=== PATIENT | female | born 1985 | race Caucasian/White ===

== ENCOUNTER 2023-02-08 15:13 | Outpatient (OUT) | payer OTHER, SELFPAY | END 2023-02-08 15:14 | PROVIDERS: PCP Family Medicine; Visit Provider Obstetrics & Gynecology | DX: E28.2 Polycystic ovarian syndrome (principal) | CPT/HCPCS: 36415; 84144 ==

== ENCOUNTER 2023-03-13 16:29 | Outpatient (OUT) | payer OTHER, SELFPAY ==
[2023-03-15 05:07] LABS: Progesterone 16.8 ng/mL (.)
== END 2023-03-13 16:30 | disposition home or self-care (01) ==
LOC: LAB 16:29
PROVIDERS: PCP Family Medicine; Visit Provider Obstetrics & Gynecology
DX: N97.0 Female infertility associated with anovulation (principal)
CPT/HCPCS: 36415; 84144

== ENCOUNTER 2023-04-11 07:59 | Outpatient (OUT) | payer BC, OTHER, SELFPAY ==
[2023-04-12 04:10] LABS: Progesterone 10.2 ng/mL (.)
== END 2023-04-11 08:00 | disposition home or self-care (01) ==
LOC: LAB 08:02
PROVIDERS: PCP Family Medicine; Visit Provider Obstetrics & Gynecology
DX: N97.9 Female infertility, unspecified (principal)
CPT/HCPCS: 36415; 84144

== ENCOUNTER 2023-06-01 10:12 | Outpatient (OUT) | payer BC, SELFPAY ==
[2023-06-03 02:07] LABS: Progesterone 17.6 ng/mL (.)
== END 2023-06-01 10:13 | disposition home or self-care (01) ==
PROVIDERS: PCP Family Medicine; Visit Provider Obstetrics & Gynecology
DX: N97.0 Female infertility associated with anovulation (principal)
CPT/HCPCS: 36415; 84144

== ENCOUNTER 2023-07-01 06:32 | Outpatient (OUT) | payer BC, SELFPAY ==
[2023-07-02 08:11] LABS: Progesterone 10.3 ng/mL (.)
== END 2023-07-01 06:33 | disposition home or self-care (01) ==
LOC: LAB 06:33
PROVIDERS: PCP Family Medicine; Visit Provider Obstetrics & Gynecology
DX: N97.9 Female infertility, unspecified (principal)
CPT/HCPCS: 36415; 84144

== ENCOUNTER 2023-08-01 16:15 | Outpatient (OUT) | payer BC, SELFPAY ==
[2023-08-03 08:11] LABS: Progesterone 16.2 ng/mL (.)
== END 2023-08-01 16:16 | disposition home or self-care (01) ==
LOC: LAB 16:17
PROVIDERS: PCP Family Medicine; Visit Provider Obstetrics & Gynecology
DX: N97.9 Female infertility, unspecified (principal); N97.0 Female infertility associated with anovulation
CPT/HCPCS: 36415; 84144

== ENCOUNTER 2023-09-02 09:27 | Outpatient (OUT) | payer BC, SELFPAY ==
--- OUTSIDE RECORDS SUMMARY | 2023-09-02 09:31 | XMS_ITS | CCD ---
Author Name Unknown Address [address] [place] [address] Organization [facility] Care Team Providers Care Industrial Relations Worker Name Role Phone No Family Physician Unavailable Unavailable No Family Physician Unavailable Unavailable NO FAMILY DOCTOR, NO FAMILY DOCTOR Primary Care Unavailable YANIRA MARTINO Attending Unavailable Swathi DANIEL Referring Unavailab le PROVIDER, UNKNOWN Attending Unavailable PROVIDER, UNKNOWN Admitting Unavailable WILSON CASTRO Primary Care Unavailable Yolis James Unavailable Joo PACKER, Luisa Unavailable [phone] Lashwan MESSER, Jamie Unavailable Kaushik West, R.D., L.D., Page Unavailable Florin MESSER, Rita Unavailable Rishabh Funes Unavailable [phone] Jada Oliveros Unavailable Joo PACKER Luisa Unavailable Lashawn MESSER, Jamie Unavailable [phone] Kaushik Nancy, R.D., L.D., Page Unavailable Florin MESSER, Rita Unavailable Rishabh Funes Unavailable [phone] ALVARO Hale, DR GOSS Attending Unavailable ALVARO ., DR GOSS Admitting Unavailable DR JADA OLIVEROS Primary Care Unavailable ALVARO ., DR GOSS Consulting Unavailable REQUEST, DR NONE LISTED Primary Care Unavaila cheri JOHN ., DR GOSS Attending Unavailable DAVILLA, DR YANIRA Steele Consulting Unavailable ALVARO ., DR GOSS Admitting Unavailable ALVARO ., DR GOSS Consulting Unavailable ALVARO ., DR GOSS Admitting Unavailable ALVARO ., DR GOSS Attending Unavailable REQUEST, DR NONE LISTED Primary Care Unavaila ble ALVARO ., DR GOSS Consulting Unavailable REQUEST, DR NONE LISTED Primary Care Unavaila ble ALVARO ., DR GOSS Admitting Unavailable ALVARO ., DR GOSS Attending Unavailable ALVARO ., DR GOSS Consulting Unavailable REQUEST, DR NONE LISTED Primary Care Unavaila ble ALVARO ., DR GOSS Admitting Unavailable ALVARO ., DR GOSS Attending Unavailable ALVARO ., DR GOSS Consulting Unavailable REQUEST, DR NONE LISTED Primary Care Unavaila ble ALVARO ., DR GOSS Admitting Unavailable ALVARO ., DR GOSS Attending Unavailable ALVARO ., DR GOSS Consulting Unavailable MISC, DR MCDANIEL Primary Care Unavailable ALVARO ., DR GOSS Attending Unavailable ALVARO ., DR GOSS Admitting Unavailable ALVARO ., DR GOSS Consulting Unavailable ALVARO ., DR GOSS Admitting Unavailable ALVARO ., DR GOSS Attending Unavailable MISC, DR MCDANIEL Primary Care Unavailable ZIEBER, DR YADIRA Carrera Consulting Unavailable ALVARO ., DR GOSS Attending Unavailable ALVARO ., DR GOSS Admitting Unavailable OLIVEROS, DR JADA Corey Primary Care Unavailable ALVARO ., DR GOSS Consulting Unavailable ALVARO ., DR GOSS Consulting Unavailable ALVARO ., DR GOSS Attending Unavailable ALVARO ., DR GOSS Admitting Unavailable OLIVEROS, DR JADA Corey Primary Care Unavailable ALVARO ., DR GOSS Consulting Unavailable ALVARO ., DR GOSS Attending Unavailable ALVARO ., DR GOSS Admitting Unavailable OLIVEROS, DR JADA Corey Primary Care Unavailable ALVARO ., DR GOSS Consulting Unavailable ALVARO ., DR GOSS Attending Unavailable ALVARO ., DR GOSS Admitting Unavailable OLIVEROS, DR JADA Corey Primary Care Unavailable ALVARO ., DR GOSS Attending Unavailable ALVARO ., DR GOSS Admitting Unavailable OLIVEROS, DR JADA Corey Primary Care Unavailable ALVARO ., DR GOSS Consulting Unavailable Allergies Allergy Classification Reported Allergen(s) Allergy Type Date of Onset Reaction(s) Facility (3 sources) SEASONAL IC; Translations: [SEASONAL IC] Propensity to adverse reactions to drug (disorder) 09-23-201 9 [facility] Medications Current Medications Medication Drug Class(es) Dates Sig (Normalized) Sig (Original) cholecalciferol 0.05 mg oral tablet (2 sources) Vitamin D Start: 10-29-2018 take 1 tablet by mouth once daily Cholecalciferol (VITAMIN D3) 2000 units TABS Take 1 Tablet by mouth daily. 30 Tablet 11 10/29/2018 Active condoms (2 sources) Start: 06-18-2019 condoms use during sex to prevent and/or sexually transmitted diseases 1 Package 11 06/18/2019 Active docosanol 100 mg/ml topical cream (2 sources) Start: 01-09-2019 Docosanol (ABREVA) 10 % CREA Apply to affected area 5 times daily for 7 days as needed 1 Tube 1 01/09/2019 Active docusate sodium 100 mg oral capsule (2 sources) Start: 05-30-2019 take 1 capsule by mouth twice daily docusate sodium (COLACE) 100 MG capsule Take 1 Capsule by mouth 2 times daily. 60 Capsule 3 05/30/2019 Active humidifier (2 sources) Start: 09-21-2018 humidifier Dispense humidifier covered by insurance to use as directed 1 Each 0 09/21/2018 Active hydrocortisone 10 mg/ml / neomycin 3.5 mg/ml / polymyxin b 95770 unt/ml otic solution (1 source) Aminoglycoside Antibacterial, Polymyxin-class Antibacterial, Corticosteroid Start: 11-08-2022 Neomycin-Polymyxin- HC 1 % 4 drops into affected ear Otic Three times a day for 7 days Oct, Active ketoconazole 20 mg/ml medicated shampoo (3 sources) Azole Antifungal Start: 04-28-2019 ketoconazole (NIZORAL) 2 % shampoo Ketoconazole 2 % as directed Externally every other day for 28 days Active loratadine 10 mg oral tablet (2 sources) Start: 01-07-2019 take 1 tablet by mouth once daily loratadine (CLARITIN) 10 MG tablet Take 1 Tablet by mouth daily. 30 Tablet 3 01/07/2019 Active medroxyPROGESTERone acetate 10 mg oral tablet (2 sources) Progestin Start: 07-08-2019 take 1 tablet by mouth once daily, then take 1-10 tablets by mouth once daily medroxyPROGESTERone (PROVERA) 10 MG tablet Take 1 Tablet by mouth daily. Take daily for 10 consecutive days each month. (For example, Day 1-10 of each month). 30 Tablet 3 07/08/2019 Active metFORMIN hydrochloride 500 mg oral tablet (1 source) Biguanide take 1 tablet by mouth every twenty-fou r hours metFORMIN HCl 500 MG 1 tablet with a meal Orally Once a day Active Multivitamin preparation (1 source) Multivitamin Act jonathon ofloxacin 3 mg/ml otic solution (2 sources) Quinolone Antimicrobial Start: 06-12-2022 Ofloxacin 0.3 % 10 drops into affected ear Otic Once a day for 7 day(s) May, Active Start: 06-12-2022 Ofloxacin 0.3 % 10 drops into affected ear Otic Once a day for 7 day(s) May, Not-Taking omeprazole 40 mg delayed release oral capsule (2 sources) Proton Pump Inhibitor Start: 05-30-2019 take 1 capsule by mouth once daily omeprazole (PRILOSEC) 40 MG capsule Take 1 Capsule by mouth daily. 90 Capsule 2 05/30/2019 Active ondansetron 4 mg disintegrating oral tablet (2 sources) Serotonin-3 Receptor Antagonist Start: 05-30-2019 take 1 tablet by mouth every eight hours as needed for nausea ondansetron (ZOFRAN ODT) 4 MG disintegrating tablet Take 1 Tablet by mouth every 8 hours as needed for Nausea. Place 1 tablet under tongue as needed for nausea. 30 Tablet 1 05/30/2019 Active triamcinolone acetonide 1 mg/ml topical cream (1 source) Corticosteroid Triamcinolone Acetonide 0.1 % 1 application Externally Two times a Week Active ursodiol 300 mg oral capsule (2 sources) Bile Acid Start: 05-30-2019 take 1 capsule by mouth twice daily ursodiol (ACTIGALL) 300 MG capsule Take 1 Capsule by mouth 2 times daily. 120 Capsule 2 05/30/2019 Active varenicline (2 sources) Partial Cholinergic Nicotinic Agonist Start: 12-27-2019 varenicline (CHANTIX STARTING MONTH ) 0.5 MG X 11 & 1 MG X 42 tablet Take 0.5mg tablet daily for 3 days, then increase to 0.5mg tablet twice daily for 4 days, then increase to one 1mg tablet twice daily 53 Each 3 12/27/2019 Active vitamin b12 0.1 mg oral tablet (3 sources) Vitamin B12 Start: 10-29-2018 take 1 tablet by mouth once daily Cyanocobalamin (B-12) 100 MCG TABS Take 100 mcg by mouth daily. 30 Tablet 11 10/29/2018 Active Vitamin B12 Acti ve Problems Active Problems Problem Classification Problem Date Documented Da te Episodic/Chronic Developmental disorders (2 sources) Developmental academic disorder; Translations: [Developmental disorder of scholastic skills, unspecified] Onset: 05-31-2014 05-31-2014 Chronic Disorders of lipid metabolism (2 sources) Mixed hyperlipidemia; Translations: [Mixed hyperlipidemia] Onset: 10-29-2018 12-14-2018 Chronic Female infertility (8 sources) Female infertility; Translations: [Female infertility, unspecified] Onset: 09-22-2018 09-22-2018 Chronic Headache; including migraine (1 source) Migraine, unspecified, not intractable, without status migrainosus Onset: 11-07-2018 Chronic Headache; including migraine (2 sources) Headache; Translations: [Headache] Onset: 11-07-2018 Episodic Menstrual disorders (12 sources) Amenorrhea; Translations: [Amenorrhea, unspecified] Onset: 09-22-2018 09-22-2018 Chronic Miscellaneous mental health disorders (2 sources) Eating disorder; Translations: [Eating disorder, unspecified] Onset: 09-22-2018 09-22-2018 Chronic Nausea and vomiting (3 sources) Nausea with vomiting, unspecified; Translations: [Nausea with vomiting, unspecified] Onset: 11-07-2018 Episodic Nutritional deficiencies (2 sources) Vitamin D deficiency; Translations: [Vitamin D deficiency, unspecified] Onset: 10-29-2018 10-29-2018 Chronic Other ear and sense organ disorders (2 sources) Chronic eczema of external auditory canal; Translations: [Other otitis externa, bilateral] Chronic Other ear and sense organ disorders (1 source) Other otitis externa, bilateral Chronic Other ear and sense organ disorders (1 source) Unspecified acute noninfective otitis externa, left ear Episodic Other endocrine disorders (2 sources) Polycystic ovary syndrome; Translations: [Polycystic ovarian syndrome] Onset: 11-07-2013 Chronic Other endocrine disorders (2 sources) Polycystic ovaries; Translations: [Polycystic ovarian syndrome] Chronic Other endocrine disorders (4 sources) Polycystic ovarian syndrome; Translations: [POLYCYSTIC OVARIAN SYNDROME] Onset: 01-09-2023 Chronic Other endocrine disorders (2 sources) Disorder of endocrine system; Translations: [Endocrine disorder, unspecified] Episodic Other female genital disorders (2 sources) Abnormal uterine bleeding; Translations: [Abnormal uterine and vaginal bleeding, unspecified] Chronic Other female genital disorders (4 sources) Abnormal uterine and vaginal bleeding, unspecified; Translations: [ABNORMAL UTERINE VAGINAL BLEED UNS] Onset: 02-24-2022 Chronic Other female genital disorders (2 sources) Noninflammatory disorders of the ovary, fallopian tube and broad ligament; Translations: [Noninflammatory disorder of ovary, fallopian tube and broad ligament, unspecified] Episodic Other gastrointestinal disorders (2 sources) History of bypass of stomach; Translations: [Bariatric surgery status] Episodic Other inflammatory condition of skin (2 sources) Itching of skin; Translations: [Pruritus, unspecified] Episodic Other inflammatory condition of skin (1 source) Seborrhea capitis Episodic Other nervous system disorders (2 sources) Bilateral carpal tunnel syndrome; Translations: [Carpal tunnel syndrome, bilateral upper limbs] Onset: 09-22-2018 09-22-2018 Chronic Other nutritional; endocrine; and metabolic disorders (2 sources) Morbid obesity; Translations: [Morbid (severe) obesity with alveolar hypoventilation] Onset: 05-17-2019 05-17-2019 Chronic Other nutritional; endocrine; and metabolic disorders (2 sources) Localized adiposity; Translations: [Localized adiposity] Chronic Other and delivery including normal (4 sources) Encounter for test, result positive; Translations: [ENC TEST RESULT POSITIVE] Onset: 01-17-2023 Episodic Other screening for suspected conditions (not mental disorders or infectious disease) (5 sources) Encounter for screening for malignant neoplasm of cervix; Translations: [ENC SCREENING MALIG NEOPLASM CERV] Onset: 11-21-2022 Episodic Other upper respiratory disease (2 sources) Chronic rhinitis; Translations: [Chronic rhinitis] Onset: 09-22-2018 09-22-2018 Chronic Residual codes; unclassified (2 sources) Obstructive sleep apnea of adult; Translations: [Obstructive sleep apnea (adult) (pediatric)] Onset: 12-14-2018 05-30-2019 Chronic Unclassified (1 source) Unknown / UNK(Unknown) Onset: 09-21-2017 Unclassified (3 sources) Diarrhea, unspecified; Translations: [Diarrhea, unspecified] Onset: 11-07-2018 Past or Other Problems Problem Classification Problem Date Documented Da te Episodic/Chronic Contraceptive and procreative management (4 sources) Encounter for procreative management, unspecified; Translations: [ENC PROCREATIVE MANAGEMENT UNS] Onset: 09-23-2022 Episodic Diabetes mellitus without complication (2 sources) Prediabetes; Translations: [Prediabetes] Onset: 10-29-2018 10-29-2018 Episodic Headache, including migraine (1 source) Headache, including migraine Onset: 09-21-2017 Nutritional deficiencies (2 sources) Serum vitamin B12 low; Translations: [Deficiency of other specified B group vitamins] Onset: 10-29-2018 10-29-2018 Episodic Other endocrine disorders (4 sources) Endocrine disorder, unspecified; Translations: [ENDOCRINE DISORDER UNSPECIFIED] Onset: 02-25-2022 Episodic Other female genital disorders (4 sources) Noninflammatory disorder of ovary, fallopian tube and broad ligament, unspecified; Translations: [OTH NONINFL D/O OVARY TUBE AND BRD LIG] Onset: 07-12-2022 Episodic Other gastrointestinal disorders (2 sources) History of sleeve gastrectomy; Translations: [Bariatric surgery status] Onset: 06-11-2019 06-11-2019 Episodic Other inflammatory condition of skin (2 sources) Seborrheic dermatitis of scalp; Translations: [Seborrheic dermatitis, unspecified] Onset: 09-22-2018 09-22-2018 Episodic Other nutritional; endocrine; and metabolic disorders (4 sources) Body mass index 40+ - severely obese; Translations: [Morbid (severe) obesity due to excess calories] Onset: 09-22-2018 Resolved: 07-08-2019 07-08-2019 Chronic Other skin disorders (2 sources) Disorder of skin and/or subcutaneous tissue; Translations: [Excessive and redundant skin and subcutaneous tissue] Onset: 04-17-2020 04-17-2020 Episodic Results Test Name Value Interpretation Reference Range Facility PREG QUANT HCGon 01-17-2023 HCG QUANT <1 [facility] Comment on above: Performed By: #### P REGQNT #### [facility] [address] [address] [address] Meghan Vital HCG RANGE SEE BELOW [facility] Comment on above: Result Comment: 5-50 0.2-1 WEEK 50-500 1-2 WEEKS 100-5,000 2-3 WEEKS 500-10,000 3-4 WEEKS 1,000-50,000 4-5 WEEKS 10,000-100,000 5-6 WEEKS 15,000-200,000 6-8 WEEKS 10,000-100,000 2-3 MONTHS Performed By: #### P REGQNT #### [facility] [address] [place] [address] Dr. Meghan Vital PROGESTERONEon 01-10-2023 Progesterone 8.9 ng/mL [facility] Comment on above: Result Comment: Foll icular phase 0.1 - 0.9 Luteal phase 1.8 - 23.9 Ovulation phase 0.1 - 12.0 First trimester 11.0 - 44.3 Second trimester 25.4 - 83.3 Third trimester 58.7 - 214.0 Postmenopausal 0.0 - 0.1 Performed By: #### H CGSUB #### [facility] [address] [place] [address] Dr. Meghan Vital PAP ACOG PANEL 2: 30 to 65on 11-30-2022 . . Normal [facility] Comment on above: Result Comment: Perf ormed at: WB Performed By: #### [id number] #### [facility] [address] [place] [address] Dr. Meghan Vital Age Gdln ACOG Testing - [facility] Comment on above: Performed By: #### [id number] #### [facility] [address] [place] [address] Dr. Meghan Vital DIAGNOSIS: Comment [facility] Comment on above: Result Comment: NEGA TIVE FOR INTRAEPITHELIAL LESION OR MALIGNANCY. Performed at: WB Performed By: #### [id number] #### [facility] [address] [place] [address] Dr. Meghan Vital HPV Aptima Positive Abnormal Negative [facility] Comment on above: Result Comment: This nucleic acid amplification test detects fourteen high-risk HPV types (16,18,31,33,35,39,45,51,52,56,58,59,66,68) without differentiation. Performed at: =G Performed By: #### [id number] #### [facility] [address] [place] [address] Dr. Meghan Vital HPV Genotype 16 Negative Normal Negative [facility] Comment on above: Performed By: #### [id number] #### [facility] [address] [place] [address] Dr. Meghan Vital HPV Genotype 18,45 Negative Normal Negative [facility] Comment on above: Performed By: #### [id number] #### [facility] [address] [address] [address] Meghan Vital HPV Genotype Reflex Comment [facility] Comment on above: Result Comment: Aiyana iqbal, see HPV Genotype results. Performed at: WB Performed By: #### [id number] #### [facility] [address] [place] [address] Dr. Meghan Vital Methodology: Comment [facility] Comment on above: Result Comment: This liquid based ThinPrep(R) pap test was screened with the use of an image guided system. Performed at: WB Performed By: #### [id number] #### [facility] [address] [place] [address] Dr. Meghan Vital Note: Comment [facility] Comment on above: Result Comment: The Pap smear is a screening test designed to aid in the detection of premalignant and malignant conditions of the uterine cervix. It is not a diagnostic procedure and should not be used as the sole means of detecting cervical cancer. Both false-positive and false-negative reports do occur. . Performed at: WB Performed By: #### [id number] #### [facility] [address] [place] [address] Dr. Meghan Vital Performed by: Comment [facility] Comment on above: Result Comment: Rahul Kincaid, Warehouse Record Clerk (ASCP) Performed at: WB Performed By: #### [id number] #### [facility] [address] [place] [address] Dr. Meghan Vital Specimen adequacy: Comment [facility] Comment on above: Result Comment: Sati sfactory for evaluation. Endocervical and/or squamous metaplastic cells (endocervical component) are present. Performed at: WB Performed By: #### [id number] #### [facility] [address] [address] [address] Mgehan Vital ANTI-MULLERIAN HORMONEon Anti-Mullerian Hormone (AMH) 3.03 ng/mL [facility] Comment on above: Result Comment: For assays employing antibodies, the possibility exists for interference by heterophile antibodies in the samples.1 1.Bailey Dickson Interferences in Immunoassays - still a threat. Clin. Chem. 2000; 46: 3455-9838. This test was developed and its performance characteristics determined by [employer]. It has not been cleared or approved by the Food and Drug Administration. Reference Range: Females 36 - 40y: 0.42 - 8.34 Median 1.69 AMH concentrations of >= 1.06 ng/mL is correlated with a better response to ovarian stimulation, produced more retrievable oocytes and higher odds of live according to Shaniceer et al. Fertility and Sterility. 2010: 94:6104-8684. The current AMH test method correlates with the study method with a slope of 0.94. Females at risk of ovarian hyperstimulation syndrome or polycystic ovarian syndrome (PCOS) may exhibit elevated serum AMH concentrations. AMH levels from PCOS patients may be 2 to 5 fold higher than age-appropriate reference interval values. Granulosa cell tumors of the ovary may secrete AMH along with other tumor markers. Elevated AMH is not specific for malignancy, and the assay should not be used exclusively to diagnose or exclude an AMH-secreting ovarian tumor. Performed By: #### H CGSUB #### [facility] [address] [place] [address] Dr. Meghan Vital CBC AUTO DIFFon 11-21-2022 BASO # 0.1 103/ul Normal 0.0-0.1 [facility] Comment on above: Performed By: #### H CGSUB #### [facility] [address] [place] [address] Dr. Meghan Vital Basophils/100 WBC (Bld) 0.8 % Normal 0.2-2.0 [facility] Comment on above: Performed By: #### H CGSUB #### [facility] [address] [place] [address] Dr. Meghan Vital EO # 0.2 103/ul Normal 0.0-0.7 [facility] Comment on above: Performed By: #### H CGSUB #### [facility] [address] [place] [address] Dr. Meghan Vital Eosinophils/100 WBC (Bld) 2.3 % Normal 0.9-7.0 [facility] Comment on above: Performed By: #### H CGSUB #### [facility] [address] [place] [address] Dr. Meghan Vital Erythrocyte distribution width (RBC) [Ratio] 13.3 % Normal 11.0-15.0 [facility] Comment on above: Performed By: #### H CGSUB #### [facility] [address] [place] [address] Dr. Meghan Vital Hematocrit (Bld) [Volume fraction] 42.4 % Normal 36.0-48.0 [facility] Comment on above: Performed By: #### H CGSUB #### [facility] [address] [place] [address] Dr. Meghan Vital Hemoglobin (Bld) [Mass/Vol] 13.6 g/dL Normal 12.0-16.0 [facility] Comment on above: Performed By: #### H CGSUB #### [facility] [address] [place] [address] Dr. Meghan Vital IG # 0.01 10e3/ul Normal 0.00-0.03 [facility] Comment on above: Performed By: #### H CGSUB #### [facility] [address] [place] [address] Dr. Meghan Vital IG % 0.1 % Normal 0.0-0.5 [facility] Comment on above: Performed By: #### H CGSUB #### [facility] [address] [place] [address] Dr. Meghan Vital LYMPH # 3.9 103/ul Critically high 1.2-3.8 [facility] Comment on above: Performed By: #### H CGSUB #### [facility] [address] [place] [address] Dr. Meghan Vital Lymphocytes/100 WBC (Bld) 42.7 % Normal 20.5-60.0 [facility] Comment on above: Performed By: #### H CGSUB #### [facility] [address] [place] [address] Dr. Meghan Vital MANUAL DIFF REQ NO Normal [facility] Comment on above: Performed By: #### H CGSUB #### [facility] [address] [place] [address] Dr. Meghan Vital MCH (RBC) [Entitic mass] 27.4 pg Normal 26.7-34.0 [facility] Comment on above: Performed By: #### H CGSUB #### [facility] [address] [place] [address] Dr. Meghan Vital MCHC (RBC) [Mass/Vol] 32.1 g/dL Normal 29.9-35.2 [facility] Comment on above: Performed By: #### H CGSUB #### [facility] [address] [place] [address] Dr. Meghan Vital MCV (RBC) [Entitic vol] 85.3 fL Normal 81.0-99.0 [facility] Comment on above: Performed By: #### H CGSUB #### [facility] [address] [place] [address] Dr. Meghan Vital MONO # 0.6 103/ul Normal 0.3-0.8 [facility] Comment on above: Performed By: #### H CGSUB #### [facility] [address] [place] [address] Dr. Meghan Vital Monocytes/100 WBC (Bld) 6.1 % Normal 1.7-12.0 [facility] Comment on above: Performed By: #### H CGSUB #### [facility] [address] [place] [address] Dr. Meghan Vital NEUT # 4.3 103/ul Normal 1.4-6.5 [facility] Comment on above: Performed By: #### H CGSUB #### [facility] [address] [address] [address] Meghan Vital Neutrophils/100 WBC (Bld) 48.0 % Normal 43.0-75.0 [facility] Comment on above: Performed By: #### H CGSUB #### [facility] [address] [address] [address] Meghan Vital Platelet mean volume (Bld) [Entitic vol] 11.5 fL Normal 9.5-13.5 [facility] Comment on above: Performed By: #### H CGSUB #### [facility] [address] [address] [address] Meghan Vital PLT 251 103/ul Normal 150-450 [facility] Comment on above: Performed By: #### H CGSUB #### [facility] [address] [place] [address] Dr. Meghan Vital RBC 4.97 106/ul Normal 4.20-5.40 [facility] Comment on above: Performed By: #### H CGSUB #### [facility] [address] [address] [address] Meghan Vitla WBC 9.0 103/ul Normal 4.0-11.0 [facility] [facility] Comment on above: Performed By: #### H CGSUB #### [facility] [address] [place] [address] Dr. Meghan Vital FREE T4on 11-21-2022 Free T4 [Mass/Vol] 1.03 ng/dL Normal 0.76-1.46 [facility] Comment on above: Performed By: #### F T4 #### [facility] [address] [place] [address] Dr. Meghan Vital GLYCOHEMOGLOBIN A1Con 2022 ADA RECOMMENDATION SEE BELOW Normal [facility] Comment on above: Result Comment: ADA RECOMMENDED LIMIT 4.0 - 6.0 ADA THERAPEUTIC TARGET < 7.0 ACTION SUGGESTED > 7.0 Performed By: #### H CGSUB #### [facility] [address] [place] [address] Dr. Meghan Vital Glucose [Mass/Vol] 97 mg/dL Normal [facility] Comment on above: Performed By: #### H CGSUB #### [facility] [address] [place] [address] Dr. Meghan Vital HbA1c (Bld) [Mass fraction] 5.0 % Normal 4.5-6.2 [facility] Comment on above: Performed By: #### H CGSUB #### [facility] [address] [place] [address] Dr. Meghan Vital TSHon 11-21-2022 TSH 1.636 uIU/mL Normal 0.358-3.74 0 [facility] Comment on above: Performed By: #### H CGSUB #### [facility] [address] [place] [address] Dr. Meghan Vital PROGESTERONEon 10-12-2022 Progesterone 6.8 ng/mL Normal [facility] Comment on above: Result Comment: Foll icular phase 0.1 - 0.9 Luteal phase 1.8 - 23.9 Ovulation phase 0.1 - 12.0 First trimester 11.0 - 44.3 Second trimester 25.4 - 83.3 Third trimester 58.7 - 214.0 Postmenopausal 0.0 - 0.1 Performed By: #### H CGSUB #### [facility] [address] [place] [address] Dr. Meghan Vital CBC AUTO DIFFon 09-23-2022 BASO # 0.1 103/ul Normal 0.0-0.1 [facility] Comment on above: Performed By: #### C BC #### [facility] [address] [place] [address] Dr. Meghan Vital Basophils/100 WBC (Bld) 1.2 % Normal 0.2-2.0 [facility] Comment on above: Performed By: #### C BC #### [facility] [address] [place] [address] Dr. Meghan Vital EO # 0.2 103/ul Normal 0.0-0.7 [facility] Comment on above: Performed By: #### C BC #### [facility] [address] [place] [address] Dr. Meghan Vital Eosinophils/100 WBC (Bld) 2.4 % Normal 0.9-7.0 [facility] Comment on above: Performed By: #### C BC #### [facility] [address] [place] [address] Dr. Meghan Vital Erythrocyte distribution width (RBC) [Ratio] 13.1 % Normal 11.0-15.0 [facility] Comment on above: Performed By: #### C BC #### [facility] [address] [place] [address] Dr. Meghan Vital Hematocrit (Bld) [Volume fraction] 38.1 % Normal 36.0-48.0 [facility] Comment on above: Performed By: #### C BC #### [facility] [address] [place] [address] Dr. Meghan Vital Hemoglobin (Bld) [Mass/Vol] 13.4 g/dL Normal 12.0-16.0 [facility] Comment on above: Performed By: #### C BC #### [facility] [address] [place] [address] Dr. Meghan Vital IG # 0.01 10e3/ul Normal 0.00-0.03 [facility] Comment on above: Performed By: #### C BC #### [facility] [address] [place] [address] Dr. Meghan Vital IG % 0.1 % Normal 0.0-0.5 [facility] Comment on above: Performed By: #### C BC #### [facility] [address] [place] [address] Dr. Meghan Vital LYMPH # 3.4 103/ul Normal 1.2-3.8 [facility] Comment on above: Performed By: #### C BC #### [facility] [address] [place] [address] Dr. Meghan Vital Lymphocytes/100 WBC (Bld) 45.2 % Normal 20.5-60.0 [facility] Comment on above: Performed By: #### C BC #### [facility] [address] [place] [address] Dr. Meghan Vital MANUAL DIFF REQ NO Normal [facility] Comment on above: Performed By: #### C BC #### [facility] [address] [place] [address] Dr. Meghan Vital MCH (RBC) [Entitic mass] 27.8 pg Normal 26.7-34.0 [facility] Comment on above: Performed By: #### C BC #### [facility] [address] [place] [address] Dr. Meghan Vital MCHC (RBC) [Mass/Vol] 35.2 g/dL Normal 29.9-35.2 [facility] Comment on above: Performed By: #### C BC #### [facility] [address] [place] [address] Dr. Meghan Vital MCV (RBC) [Entitic vol] 79.0 fL Critically low 81.0-99.0 [facility] Comment on above: Performed By: #### C BC #### [facility] [address] [place] [address] Dr. Meghan Vital MONO # 0.4 103/ul Normal 0.3-0.8 [facility] Comment on above: Performed By: #### C BC #### [facility] [address] [place] [address] Dr. Meghan Vital Monocytes/100 WBC (Bld) 5.3 % Normal 1.7-12.0 [facility] Comment on above: Performed By: #### C BC #### [facility] [address] [place] [address] Dr. Meghan Vital NEUT # 3.4 103/ul Normal 1.4-6.5 [facility] Comment on above: Performed By: #### C BC #### [facility] [address] [place] [address] Dr. Meghan Vital Neutrophils/100 WBC (Bld) 45.8 % Normal 43.0-75.0 [facility] Comment on above: Performed By: #### C BC #### [facility] [address] [place] [address] Dr. Meghan Vital Platelet mean volume (Bld) [Entitic vol] 11.4 fL Normal 9.5-13.5 [facility] Comment on above: Performed By: #### C BC #### [facility] [address] [place] [address] Dr. Meghan Vital PLT 280 103/ul Normal 150-450 [facility] Comment on above: Performed By: #### C BC #### [facility] [address] [place] [address] Dr. Meghan Vital RBC 4.82 106/ul Normal 4.20-5.40 [facility] Comment on above: Performed By: #### C BC #### [facility] [address] [place] [address] Dr. Meghan Vital WBC 7.5 103/ul Normal 4.0-11.0 [facility] Comment on above: Performed By: #### C BC #### [facility] [address] [place] [address] Dr. Meghan Vital FREE T4on 09-23-2022 Free T4 [Mass/Vol] 1.17 ng/dL Normal 0.76-1.46 [facility] Comment on above: Performed By: #### H CGSUB #### [facility] [address] [place] [address] Dr. Meghan Vital GLYCOHEMOGLOBIN A1Con 2022 ADA RECOMMENDATION SEE BELOW Normal [facility] Comment on above: Result Comment: ADA RECOMMENDED LIMIT 4.0 - 6.0 ADA THERAPEUTIC TARGET < 7.0 ACTION SUGGESTED > 7.0 Performed By: #### A 1C #### [facility] [address] [place] [address] Dr. Meghan Vital Glucose [Mass/Vol] 100 mg/dL Normal [facility] Comment on above: Performed By: #### A 1C #### [facility] [address] [place] [address] Dr. Meghan Vital HbA1c (Bld) [Mass fraction] 5.1 % Normal 4.5-6.2 [facility] Comment on above: Performed By: #### A 1C #### [facility] [address] [place] [address] Dr. Meghan Vital TSHon 09-23-2022 TSH 1.235 uIU/mL Normal 0.358-3.74 0 [facility] Comment on above: Performed By: #### T SH #### [facility] [address] [place] [address] Dr. Meghan Vital PREG QUANT HCGon 07-12-2022 HCG QUANT 1 mIU/mL Normal [facility] Comment on above: Performed By: #### P REGQNT #### [facility] [address] [place] [address] Dr. Meghan Vital HCG RANGE SEE BELOW Normal [facility] Comment on above: Result Comment: 5-50 0.2-1 WEEK 50-500 1-2 WEEKS 100-5,000 2-3 WEEKS 500-10,000 3-4 WEEKS 1,000-50,000 4-5 WEEKS 10,000-100,000 5-6 WEEKS 15,000-200,000 6-8 WEEKS 10,000-100,000 2-3 MONTHS Performed By: #### P REGQNT #### [facility] [address] [place] [address] Dr. Meghan Vital XR HYSTEROSALPINGOGRAMon XR HYSTEROSALPINGOGRAM EXAMINATION: XR HYSTEROSALPINGOGRAM HISTORY: Noninflammatory disorder of the female genital organs COMPARISON: No relevant comparison available. TECHNIQUE: Informed consent was obtained. A sterile vaginal speculum was introduced and, following cleansing of the cervix, a balloon-tipped catheter was inserted into the endometrial cavity. The procedure was then completed in the usual manner with water-soluble contrast. Standard level fluoroscopic mode of operation utilized. FINDINGS: FALLOPIAN TUBES: Patent fallopian tubes bilaterally. ENDOMETRIAL CAVITY: No scarring, filling defects, or dilatation. OTHER: Negative. IMPRESSION: 1. Normal hysterosalpingogram. Electronically authenticated by: YADIRA BAKER Date: 2022-07-12 12:12 Normal [facility] PROGESTERONEon 06-30-2022 Progesterone 20.9 ng/mL Normal [facility] Comment on above: Result Comment: Foll icular phase 0.1 - 0.9 Luteal phase 1.8 - 23.9 Ovulation phase 0.1 - 12.0 First trimester 11.0 - 44.3 Second trimester 25.4 - 83.3 Third trimester 58.7 - 214.0 Postmenopausal 0.0 - 0.1 Performed By: #### P PHIL #### [facility] [address] [place] [address] Dr. Meghan Vital HCG-BETA SUBUNIT QUANTon hCG,Beta Subunit,Qnt,Serum <1 Normal [facility] Comment on above: Result Comment: Fema le (Non-) 0 - 5 (Postmenopausal) 0 - 8 . Female () Weeks of Gestation 3 6 - 71 4 10 - 750 5 217 - 7138 6 158 - 20475 7 [phone] 8 42545 -[phone] 9 76295 -105649 10 58271 -[phone] 12 09872 -[phone] 14 00909 - 02335 15 12034 - 35669 16 3488 - 97937 17 8175 - 15976 18 8099 - 22244 Jeremy ECLIA methodology Performed By: #### H CGSUB #### [facility] [address] [place] [address] Dr. Meghan Vital HCG-BETA SUBUNIT QUANTon hCG,Beta Subunit,Qnt,Serum <1 Normal [facility] Comment on above: Result Comment: Fema le (Non-) 0 - 5 (Postmenopausal) 0 - 8 . Female () Weeks of Gestation 3 6 - 71 4 10 - 750 5 217 - 7138 6 158 - 30948 7 3697 [phone] 8 27443 [phone] 9 06553 -[phone] 10 57781 -887409 12 42627 -194260 14 45548 - 82914 15 07903 - 34971 16 6540 - 85289 17 8175 - 92460 18 8099 - 44280 Jeremy ECLIA methodology Performed By: #### H CGSUB #### [facility] [address] [place] [address] Dr. Meghan Vital PROGESTERONEon 02-26-2022 Progesterone <0.1 Normal [facility] Comment on above: Result Comment: Foll icular phase 0.1 - 0.9 Luteal phase 1.8 - 23.9 Ovulation phase 0.1 - 12.0 First trimester 11.0 - 44.3 Second trimester 25.4 - 83.3 Third trimester 58.7 - 214.0 Postmenopausal 0.0 - 0.1 Performed By: #### P PHIL #### [facility] [address] [place] [address] Dr. Meghan Vital US PELVIS AND TRANSVAGon US PELVIS AND TRANSVAG EXAMINATION: US P VANESSA AND TRANSVAG HISTORY: Abnormal uterine bleeding COMPARISON: 07/28/2020 FINDINGS: Transvaginal images The uterus is normal in size, contour and myometrial echotexture measuring 6.7 x 3.9 x 2.8 cm. Anteflexed. The endometrium measures 5.3 mm. Suspected partial septate uterus at the fundus The right ovary is normal in appearance measuring 2.9 x 2.7 x 1.9 cm. Normal color and Doppler flow The left ovary is normal in appearance measuring 3.5 x 2.0 x 2.6 cm. Normal color Doppler flow. IMPRESSION: Suspected partial septate uterus No acute abnormality Electronically authenticated by: YANIRA MICHAEL Date: 2022-02-24 16:57 Normal [facility] Ambulatory Clinical Summaryo n 12-22-2020 Ambulatory Clinical Summary {[id number]}CD:[id number] Normal [facility] Family Medicine Office/Clini c Noteon 12-22-2020 Family Medicine Office/Clinic Note Chief Complaint EST patient presents for stye in eye HPI Staff Fartun is a 35 year old female who presents for stye in eye. Patient denies wearing ocntacts or glasses Onset- last night Location- RT eye Pain- no Swelling- no Itching- slight Redness- yes Burning- no Drainage- no Vision changes- no Blurred vision- no Double vision- no Treatments- none History of Present Illness I have reviewed and verified the staff HPI to be accurate for this encounter. Patient presents in office for concern of style to right lower eyelid. Symptoms x 1 day. Area is tender and red. Denies drainage. Denies vision changes, Denies discharge. States she gets this a couple times per year. Denies nasal symptoms, cough, sore throat Review of Systems PHQ Score Initial Depression Screen Score: 0 Erythema:yes to lower right eyelid Discharge:no Irritation:no +tenderness to eyelid Light sensitivity:no Vision changes:no Known eye injury/chemical exposure:no Contact lens use:no Physical Exam Vitals & Measurements T: 36.7 ?C (Oral) HR: 71(Peripheral) BP: 108/66 SpO2: 98% HT: 163 cm HT: 163.0 cm WT: 66.2 kg WT: 66.2 kg BMI: 24.92 General: Well developed, well nourished, in no acute distress Eyes: PERRLA. No conjunctival erythema to either eye. No drainage. Stye presents to right lower inner eye lid, moderate edema and erythema. No drainage, area is tender Nose: No deformity, discharge, inflammation, or lesions Mouth: Mucous membranes moist. Normal oropharynx, and posterior pharynx without lesions or exudates. Tongue normal Mental Status: Alert and oriented x3. Normal mood and affect Assessment/Plan 1. BMI 24.0-24.9, adult (Z68.24: Body mass index [BMI] 24.0-24.9, adult) Ordered: Body Mass Index (BMI) documented 3008F Office Visit Level 2 Est 08243 2. Tobacco use (Z72.0: Tobacco use) We strongly recommend to quit tobacco use. Cigarette smoking harms nearly every organ of the body, causes many diseases, and reduces the health of smokers in general. Quitting smoking lowers your risk for smoking-related diseases and can add years to your life. We encourage you to visit www.smokefree.gov access to helpful resources including free telephone support. If you decide on prescription treatment to help you quit, we would be happy to provide these. Ordered: Current tobacco smoker 1034F Office Visit Level 2 Est 83479 3. Hordeolum externum right lower eyelid (H00.012: Hordeolum externum right lower eyelid) Will treat with bacitracin ointment. May use warm compresses 3-4 x day. FU with PCP if not gradually improving over next 7 days, sooner if significantly spreading erythema, edema, warmth, fever. Patient verbalized understanding of tx plan Ordered: Office Visit Level 2 Est 37391 Orders: erythromycin ophthalmic, 0.5 in, OPTH, QID for 7 day(s), 3.5 gm, Refill(s) 0, to right eye, [facility], 163, cm, 12/22/20 15:32:00 EDT, Height/Length Dosing, 66.2, kg, 12/22/20 15:32:00 EDT, Weight Dosing Follow-up No qualifying data available Patient Education Health Risks of Smoking Problem List/Past Medical History Ongoing No chronic problems Historical No qualifying data Procedure/Surgical History Knee injury, Ovarian ablation, Tonsillectomy. Medications erythromycin ophthalmic 0.5% ointment, 0.5 in, OPTH, QID Ventolin HFA 90 mcg/inh Aerosol, 2 puff(s), Inhalation, q6hr, PRN, Not taking Allergies No Known Allergies Social History Tobacco - Denies Tobacco Use, 12/22/2020 5-9 cigarettes (between 1/4 to 1/2 pack)/day in last 30 days Tobacco Use:. Never Smokeless Tobacco Use:. Cigarettes, 12/22/2020 5-9 cigarettes (between 1/4 to 1/2 pack)/day in last 30 days Tobacco Use:. Cigarettes, Yes, 11/17/2020 Family History Family history is negative Normal [facility] Comment on above: Result Comment: Elec tronically Signed By: Ara TURNER CNP\.br\Date and Time Signed: 12/22/20 16:05 EDT Patient Educationon 12-23-19 21 Patient Education Pulmonary Medicine Health Risks of Smoking Smoking cigarettes is very bad for your health. Tobacco smoke has over 200 known poisons in it. It contains the poisonous gases nitrogen oxide and carbon monoxide. There are over 60 chemicals in tobacco smoke that cause cancer. Smoking is difficult to quit because a chemical in tobacco, called nicotine, causes addiction or dependence. When you smoke and inhale, nicotine is absorbed rapidly into the bloodstream through your lungs. Both inhaled and non-inhaled nicotine may be addictive. What are the risks of cigarette smoke? Cigarette smokers have an increased risk of many serious medical problems, including: ? Lung cancer. ? Lung disease, such as pneumonia, bronchitis, and emphysema. ? Chest pain (angina) and heart attack because the heart is not getting enough oxygen. ? Heart disease and peripheral blood vessel disease. ? High blood pressure (hypertension). ? Stroke. ? Oral cancer, including cancer of the lip, mouth, or voice box. ? Bladder cancer. ? Pancreatic cancer. ? Cervical cancer. ? complications, including premature . ? Stillbirths and smaller babies, defects, and genetic damage to sperm. ? Early menopause. ? Lower estrogen level for women. ? Infertility. ? Facial wrinkles. ? Blindness. ? Increased risk of broken bones (fractures). ? Senile dementia. ? Stomach ulcers and internal bleeding. ? Delayed wound healing and increased risk of complications during surgery. ? Even smoking lightly shortens your life expectancy by several years. Because of secondhand smoke exposure, children of smokers have an increased risk of the following: ? Sudden syndrome (SIDS). ? Respiratory infections. ? Lung cancer. ? Heart disease. ? Ear infections. What are the benefits of quitting? There are many health benefits of quitting smoking. Here are some of them: ? Within days of quitting smoking, your risk of having a heart attack decreases, your blood flow improves, and your lung capacity improves. Blood pressure, pulse rate, and breathing patterns start returning to normal soon after quitting. ? Within months, your lungs may clear up completely. ? Quitting for 10 years reduces your risk of developing lung cancer and heart disease to almost that of a nonsmoker. ? People who quit may see an improvement in their overall quality of life. How do I quit smoking? Smoking is an addiction with both physical and psychological effects, and longtime habits can be hard to change. Your health care provider can recommend: ? Programs and community resources, which may include group support, education, or talk therapy. ? Prescription medicines to help reduce cravings. ? Nicotine replacement products, such as patches, gum, and nasal sprays. Use these products only as directed. Do not replace cigarette smoking with electronic cigarettes, which are commonly called e-cigarettes. The safety of e-cigarettes is not known, and some may contain harmful chemicals. ? A combination of two or more of these methods. Where to find more information ? [place] [employer]: www.lung.org ? [place] [employer]: www.cancer.org Summary ? Smoking cigarettes is very bad for your health. Cigarette smokers have an increased risk of many serious medical problems, including several cancers, heart disease, and stroke. ? Smoking is an addiction with both physical and psychological effects, and longtime habits can be hard to change. ? By stopping right away, you can greatly reduce the risk of medical problems for you and your family. ? To help you quit smoking, your health care provider can recommend programs, community resources, prescription medicines, and nicotine replacement products such as patches, gum, and nasal sprays. This information is not intended to replace advice given to you by your health care provider. Make sure you discuss any questions you have with your health care provider. Document Released: 09/21/2005 Document Revised: 11/15/2018 Document Reviewed: 08/18/2017 Elsevier Patient Education ? 2020 [employer]. [facility] Provider Letteron 12-22-2020 Provider Letter (Inserted Image. Mary ble to display) December 22, 2020 FARTUN RODRÍGUEZ [address] [place] [id number] FARTUN RODRÍGUEZ 1985 To Whom It May Concern, Please excuse above patient from work. Date of Illness:12/22/2020 May Return to Work On:12/23/2020 Comments: _ Patient was seen in office today, she may return at the date listed above Sincerely, [facility] [address] [place] [address], [facility] [place] [address] [facility] Ambulatory Clinical Summaryo n 11-17-2020 Ambulatory Clinical Summary {[id number]}CD:61 [id number] [facility] Family Medicine Office/Clini c Noteon 11-17-2020 Family Medicine Office/Clinic Note Chief Complaint [employer] cough HPI Staff Patient presents with cough onset: 3 wks Headache- no Earache- no Sinus Congestion- no Rhinorrhea- no Sore Throat- no Cough- yes wheezing- no Dyspnea on exertion- no Orthopnea- Trouble laying flat/breathing through nose:no Lung Hx (asthma, recurring bronchitis/chest colds, COPD)- no Fevers/chills- no GI symptoms- no History of Present Illness Chief complaint: FARTUN RODRÍGUEZ is a 35 Years Female presents for concerns of a cough that has been present for nearly 2 months per patient. Patient states she had issues with bronchitis in the past is a smoker in which instance she was able to quit for some prolonged period of time however states she recently started smoking again. States that she did have a head cold when symptoms first started, however those symptoms all resolved however cough has remained with no improvement. Patient states cough is productive of phlegm at times. Patient denies any fever/chills, shortness of breath/troubles breathing, wheezing, chest pain/tightness, headaches, or any nausea/vomiting/diarrhea with symptoms. Patient denies any known exposure to COVID-19 or individuals ill with similar symptoms. OTC medications used: Patient has been using Rawls's cough drops with minimal effectiveness for symptoms. I have reviewed and verified the staff HPI to be accurate for this encounter. Review of Systems PHQ Score Initial Depression Screen Score: 0 Please refer to HPI Physical Exam Vitals & Measurements T: 36.4 ?C (Oral) HR: 62(Peripheral) BP: 120/78 SpO2: 99% HT: 163 cm HT: 163.0 cm WT: 59 kg WT: 59.0 kg BMI: 22.21 General: Well developed, well nourished, in no acute distress Nose: No deformity, discharge, inflammation, or lesions Lungs: No respiratory distress, No conversational dyspnea. Normal respiratory rate. No accessory muscle usage. Lung sounds clear & equal to auscultation bilaterally, anterior and posterior. No wheezes, rales, or rhonchi appreciated. Cardio: Regular rate and rhythm, normal S1 and S2, no murmur, no rub Skin: No rashes, ulcerations, or suspicious lesions to visible skin Mental Status: Alert and oriented x3. Normal mood and affect Assessment/Plan 1. Bronchitis (J40: Bronchitis, not specified as acute or chronic) Given patient's duration of cough at 4 weeks at this point with no improvement will treat for atypical bacterial type causes of bronchitis at this time with a Z-Adán course discussed with patient. We will also attempt to use [employer] to help with symptoms, and will use as needed Ventolin inhaler if she does develop wheezing or any shortness of breath. Encouraged frequent handwashing, cough into elbow, etc. OTC Tylenol/Ibuprofen for pain/fevers. Tobacco use (Z72.0: Tobacco use) We strongly recommend to quit tobacco use. Cigarette smoking harms nearly every organ of the body, causes many diseases, and reduces the health of smokers in general. Quitting smoking lowers your risk for smoking-related diseases and can add years to your life. We encourage you to visit www.smokefree.gov access to helpful resources including free telephone support. If you decide on prescription treatment to help you quit, we would be happy to provide these. Ordered: Current tobacco smoker 1034F Orders: albuterol, 2 puff(s), Inhalation, q6hr for wheezing, 18 gram, Refill(s) 0, [facility] [address], 163, cm, 11/17/20 16:59:00 EDT, Height/Length Dosing, 59, kg, 11/17/20 16:59:00 EDT, Weight Dosing azithromycin, = 1 packet(s), Oral, As Directed, as directed on package labeling, X 5 day(s), # 6 tab(s), Refills(s) 0, Pharmacy: [facility], 163, cm, 11/17/20 16:59:00 EDT, Height/Length Dosing, 59, kg, 11/17/20 16:59:00 EDT, Weight Dosing benzonatate, 200 mg = 1 cap(s), Oral, TID, X 10 day(s), # 30 cap(s), Refills(s) 0, Pharmacy: [facility], 163, cm, 11/17/20 16:59:00 EDT, Height/Length Dosing, 59, kg, 11/17/20 16:59:00 EDT, Weight Dosing Follow-up No qualifying data available Patient Education Upper Respiratory Infection, Adult Problem List/Past Medical History Ongoing No chronic problems Historical No qualifying data Procedure/Surgical History Knee injury, Ovarian ablation, Tonsillectomy. Medications azithromycin 250 mg Tab, 1 packet(s), Oral, As Directed benzonatate 200 mg oral capsule, 200 mg= 1 cap(s), Oral, TID Ventolin HFA 90 mcg/inh Aerosol, 2 puff(s), Inhalation, q6hr, PRN Allergies No Known Allergies Social History Tobacco 5-9 cigarettes (between 1/4 to 1/2 pack)/day in last 30 days Tobacco Use:. Cigarettes, Yes, 11/17/2020 [facility] Comment on above: Result Comment: Elec tronically Signed By: MITUL BHAGAT LASHANDA Hendrix\.abdi\Date and Time Signed: 11/17/20 17:56 EDT Patient Educationon 11-18-19 Patient Education Infectious Disease Upper Respiratory Infection, Adult An upper respiratory infection (URI) is a common viral infection of the nose, throat, and upper air passages that lead to the lungs. The most common type of URI is the common cold. URIs usually get better on their own, without medical treatment. What are the causes? A URI is caused by a virus. You may catch a virus by: ? Breathing in droplets from an infected person's cough or sneeze. ? Touching something that has been exposed to the virus (contaminated) and then touching your mouth, nose, or eyes. What increases the risk? You are more likely to get a URI if: ? You are very young or very old. ? It is gary or winter. ? You have close contact with others, such as at a daycare, school, or health care facility. ? You smoke. ? You have long-term (chronic) heart or lung disease. ? You have a weakened disease-fighting (immune) system. ? You have nasal allergies or asthma. ? You are experiencing a lot of stress. ? You work in an area that has poor air circulation. ? You have poor nutrition. What are the signs or symptoms? A URI usually involves some of the following symptoms: ? Runny or stuffy (congested) nose. ? Sneezing. ? Cough. ? Sore throat. ? Headache. ? Fatigue. ? Fever. ? Loss of appetite. ? Pain in your forehead, behind your eyes, and over your cheekbones (sinus pain). ? Muscle aches. ? Redness or irritation of the eyes. ? Pressure in the ears or face. How is this diagnosed? This condition may be diagnosed based on your medical history and symptoms, and a physical exam. Your health care provider may use a cotton swab to take a mucus sample from your nose (nasal swab). This sample can be tested to determine what virus is causing the illness. How is this treated? URIs usually get better on their own within 7?10 days. You can take steps at home to relieve your symptoms. Medicines cannot cure URIs, but your health care provider may recommend certain medicines to help relieve symptoms, such as: ? Uwjf-qfi-lhkgwvf cold medicines. ? Cough suppressants. Coughing is a type of defense against infection that helps to clear the respiratory system, so take these medicines only as recommended by your health care provider. ? Fever-reducing medicines. Follow these instructions at home: Activity ? Rest as needed. ? If you have a fever, stay home from work or school until your fever is gone or until your health care provider says you are no longer contagious. Your health care provider may have you wear a face mask to prevent your infection from spreading. Relieving symptoms ? Gargle with a salt-water mixture 3?4 times a day or as needed. To make a salt-water mixture, completely dissolve ??1 tsp of salt in 1 cup of warm water. ? Use a cool-mist humidifier to add moisture to the air. This can help you breathe more easily. Eating and drinking ? Drink enough fluid to keep your urine pale yellow. ? Eat soups and other clear broths. General instructions ? Take tdaj-dpv-bxpcmvr and prescription medicines only as told by your health care provider. These include cold medicines, fever reducers, and cough suppressants. ? Do not use any products that contain nicotine or tobacco, such as cigarettes and e-cigarettes. If you need help quitting, ask your health care provider. ? Stay away from secondhand smoke. ? Stay up to date on all immunizations, including the yearly (annual) flu vaccine. ? Keep all follow-up visits as told by your health care provider. This is important. How to prevent the spread of infection to others ? URIs can be passed from person to person (are contagious). To prevent the infection from spreading: ? Wash your hands often with soap and water. If soap and water are not available, use hand process server. ? Avoid touching your mouth, face, eyes, or nose. ? Cough or sneeze into a tissue or your sleeve or elbow instead of into your hand or into the air. Contact a health care provider if: ? You are getting worse instead of better. ? You have a fever or chills. ? Your mucus is brown or red. ? You have yellow or brown discharge coming from your nose. ? You have pain in your face, especially when you bend forward. ? You have swollen neck glands. ? You have pain while swallowing. ? You have white areas in the back of your throat. Get help right away if: ? You have shortness of breath that gets worse. ? You have severe or persistent: ? Headache. ? Ear pain. ? Sinus pain. ? Chest pain. ? You have chronic lung disease along with any of the following: ? Wheezing. ? Prolonged cough. ? Coughing up blood. ? A change in your usual mucus. ? You have a stiff neck. ? You have changes in your: ? Vision. ? Hearing. ? Thinking. ? Mood. Summary ? An upper respiratory infection (URI) is a common infecti (more content not included)... Normal [facility] Provider Letteron 11-17-2020 Provider Letter (Inserted Image. Mary ble to display) November 17, 2020 FARTUN RODRÍGUEZ [address] [place] [phone] FARTUN RODRÍGUEZ 1985 To Whom It May Concern, Please excuse above patient from work. Date of Illness: From: 11/17/2020 To: 11/18/2020 May Return to Work On:11/19/2020 Comments: Patient above was seen at [facility] on 11/17/2020. Sincerely, [facility] [address] [place] [phone] [facility] Provider Letteron 09-22-2020 Provider Letter (Inserted Image. Mary ble to display) September 22, 2020 FARTUN RODRÍGUEZ [address] [place] [phone] FARTUN RODRÍGUEZ 1985 To Whom It May Concern, Please excuse above patient from work. Date of Illness: From: 09/22/2020 May Return to Work On:09/23/2020 Comments: The above patient may return back to work on the above date. Sincerely, [facility] [address] [place] [phone] [facility] SURGICAL PATH REPORTon 07-31 SURGICAL PATH REPORT [facility] Department of Pathology [address] [place] [phone] Name: FARTUN RODRÍGUEZ : 1985 Financial [id number] Number: Gender: Female Location: [facility] Admit 34 years Attending ANA PAULA JOHN Age: Provider: Ordering ANA PAULA JOHN Provider: Consulting: Surgical Pathology Report ACCESSION: COLLECTED DATE/TIME: RECEIVED DATE/TIME: PATHOLOGIST: [id number] 07/30/2020 13:19 EST 07/30/2020 13:19 EST SHADE MULLER MD Final Diagnosis Report for [facility] [place] PRODUCTS OF CONCEPTION: - CHORIONIC VILLI. SHADE MULLER PATHOLOGIST (Electronic Signature) Date Verified 07/31/2020 CL Clinical Data PRE-OP DIAGNOSIS: Not specified POST-OP DIAGNOSIS: Missed PROCEDURES: D and C with suction SPECIMEN: Products of conception / Ambulatory Surgery Gross Description Labeled products of conception. Received in formalin in a suction sock are multiple irregular segments of nair pink to red kaur soft tissue. The individual segments have a variable granular to partially smooth glistening membranous character. The specimen in total aggregate measures 8.0 x 6.0 x 2.5 cm. There are no grossly identifiable parts. Petroleum Production Engineer sections are submitted in three cassettes. MP/ekaterina 07/30/2020 Tissue pathology report for: [facility], [address] [place] [id number]; Print Date/ 07/31/2020 15:05 EST Number: Time: [facility] Department of Pathology [address] [place] [phone] Name: FARTUN RODRÍGUEZ : 1985 Financial [id number] Number: Gender: Female Location: [facility] Admit 34 years Attending ANA PAULA JOHN Age: Provider: Ordering ANA PAULA JOHN Provider: Consulting: Surgical Pathology Report ACCESSION: COLLECTED DATE/TIME: RECEIVED DATE/TIME: PATHOLOGIST: [id number] 07/30/2020 13:19 EST 07/30/2020 13:19 EST YOHANA MESSER, SHADE Dolan Description PATHOLOGY SERVICES PROVIDED BY [employer] [facility] (CLIA #[id number]) in cooperation with [facility] at [address] [place] [address] (CLIA #[id number]) Codes CPT CODE: 70078 Print Date07/31/2020 15:05 EST Number: Time: Normal [facility] Comment on above: Performed By: #### [id number] #### [facility] Laboratory Services [address] [place] [address] Energy Director: Shade Muller MD Consenton 05-29-2020 Consent [id number]:127 Normal [facility] Registrationon 05-29-2020 Registration [id number]:127 [facility] Influenza A,Bon 11-08-2018 Influenza A, Rapid Ag Negative Normal Negative [facility] Comment on above: Performed By: #### [id number] #### [facility] [address] [place] [address] Influenza B, Rapid Ag Negative Normal Negative [facility] Comment on above: Performed By: #### [id number] #### [facility] [address] [place] [address] Urinalysis with Reflex Cultu reon 11-08-2018 Appearance Nom (U) Clear Normal Clear [facility] Comment on above: Performed By: #### U ARFX #### [facility] [address] [place] [address] Ascorbic Acid Negative Normal Negative [facility] Comment on above: Performed By: #### U ARFX #### [facility] [address] [place] [address] Automated Urine Microscopy Not indicated Normal [facility] Comment on above: Performed By: #### U ARFX #### [facility] [address] [place] [address] Bilirubin mass conc Negative Normal Negative [facility] Comment on above: Performed By: #### U ARFX #### [facility] [address] [place] [address] Blood Negative Normal Negative [facility] Comment on above: Performed By: #### U ARFX #### [facility] [address] [place] [address] Color Nom (U) Yellow Normal [facility] Comment on above: Performed By: #### U ARFX #### [facility] [address] [place] [address] Glucose mass conc 50 mg/dL Abnormal Negative [facility] Comment on above: Performed By: #### U ARFX #### [facility] [address] [place] [address] Ketones Ql (U) Negative Normal Negative [facility] Comment on above: Performed By: #### U ARFX #### [facility] [address] [place] [address] Leukocytes Esterase Negative Normal Negative [facility] Comment on above: Performed By: #### U ARFX #### [facility] [address] [place] [address] Nitrite Ql (U) Negative Normal Negative [facility] Comment on above: Performed By: #### U ARFX #### [facility] [address] [place] [address] pH (Bld) 5.0 Normal 5.0-9.0 [facility] Comment on above: Performed By: #### U ARFX #### [facility] [address] [place] [address] Protein mass conc (U) Negative Normal Negative [facility] Comment on above: Performed By: #### U ARFX #### [facility] [address] [place] [address] Specific gravity Relative Density (U) 1.026 Normal 1.003-1.03 5 [facility] Comment on above: Performed By: #### U ARFX #### [facility] [address] [place] [address] Urobilinogen Qn (U) <2.0 Normal Negative [facility] Comment on above: Result Comment: Due to a manufacturing issue, low positive urobilinogen results may be falsely positive. Correlate with urine bilirubin and additional clinical/laboratory findings to assess the risk of hemolytic anemia or liver disease. If clinically indicated, repeat testing with an alternate method is available by contacting the laboratory within 24 hours. Performed By: #### U ARFX #### [facility] [address] [place] [address] STREP GROUP A AG QUALon 08-29 STREP GROUP A AG QUAL STREP GROUP A AG Q UAL GROUP A STREP NEGATIVE FOR STREPTOCOCCUS GROUP A ANTIGEN THROAT CULTURE: REFERRED TO [facility] FOR CULTURE CONFIRMATION CULTURE RESULT: CULTURE NEGATIVE FOR BETA STREP GROUP A Normal [facility] Comment on above: Performed By: #### M STREPA ####[facility] [id number] [place] [id number] ED Provider Reporton 018 ED Provider Report [facility] [place], [place] [address]Patient Name: FARTUN RODRÍGUEZ : [birth year]Acct #: [id number] Unit #: [id number] ER Arrival Date: 09/21/17 ER Physician: Yoshi Samson DOHistory of Present IllnessSource of InformationPATIENTTriage complaintCOUGH, EAR PAIN, CONGESTION, SORE THROATHistory of Present IllnessThis is a 32-year-old female is presenting to ED with left ear pain, sore throat,productive cough and congestion. Patient reports symptoms started 2 or 3 days ago. Armando had similar symptoms last week. He denies any fevers, dyspnea, chest pain. Shereports a productive cough. She reports sinus pressure and congestion. Former smoker.PMH: PCOSPSH: Ovarian surgerySocial history: Former tobacco use, occasional alcohol use, no illicit drug usePast Social HistorySmoking Status:FORMER SMOKERTobacco UseCIGARETTESPacks/Tkn4Dker :LESS THAN 1 YEAR AGOReview of SystemsReview of SystemsAllergiesCoded Allergies:NO KNOWN ALLERGENS (05/27/15)Additional CommentsUnless otherwise stated in this report the patient's positive and negative responses forreview of systems for constitutional, eyes, ENT, cardiovascular, respiratory,gastrointestina l, neurological, genitourinary, musculoskeletal, and integument systems andrelated systems to the presenting problem are either as stated in the HPI or were notpertinent or were negative for the symptoms and/or complaints related to the presentingmedical problem.Physical ExamVital SignsVital SignsVital SignsDate Time Temp Pulse Resp B/P B/P Pulse O2 O2 Flow RgO9Kqnd Ox Delivery Rate01/25 1712 36.5 83 18 147/74 98CommentsAdditionalVital signs reviewedGeneral:Appears wellAlertHEENT:Head atraumaticEyes normal inspectionPERRLNormal ENT inspectionPharynx normalNo pharyngeal exudates.TMs clear bilaterallyTenderness along the frontal and maxillary sinusesNo signs of dehydrationNECK:Normal inspectionRESPIRATORY:Geeta l breath soundsNo chest wall tendernessNo respiratory distressCVS:Heart rate and rhythm regularNo MurmursABDOMEN/GI:SoftNon-t enderBowel sounds normalNo distentionBACK:Normal inspectionEXTREMITIES:Non-T enderFull ROMNormal appearanceNo Pedal edemaNEURO:Alert and orientedCN's normal as testedSensation normalMotor normalPSYCH:Mood normalAffect normalSKIN:Color normalNo rashWarmDryMedical Decision MakingCourseCourseClinical history consistent with acute uncomplicated sinusitis. Strep swabs obtainedwhich are negative. Since this is only day 3 of her illness, recommendation is madeoutpatient hold off on antibiotics and watch for symptom improvement. She is givenFlonase for symptom control. If symptoms do not improve within the next week, patientinstructed to take Augmentin that will be prescribed upon discharge. She agrees withplan. Patient to follow-up with PCP.Disposition DecisionDischargeDispositio n Date09/21/17Decision [id number] obiologyDate/Time Procedure - StatusSource Mmvudr40/25 1745 Group A Streptococcus Screen (BETHANY) - RESTHROATResident AttestationDid you see this patient with a resident?( ) No( x ) Yes. I personally saw and examined the patient. I have reviewed and agree with theresidents findings, including all diagnostic interpretations and treatment plans aswritten unless documented otherwise in my personal note. I was present for the keyportions of any procedures performed and the inclusive time noted for any critical carestatement.I saw this patient with the resident in room G for the evaluation of possible sinusinfection. This is a 32-year-old who apparently had sinus pressure along with a sorethroat. There is also difficulty breathing through the nostrils. Patient states thisstarted yesterday. Patient also has a mild cough. Nonproductive. No vomiting or diarrhea.Physical exam patient is awake alert. TMs are intact. Posterior pharynx is clear. Heartrate rhythm is regular. Lungs are bilaterally clear. Mild tenderness to the medics hersinuses. Abdomen is soft no rigidity.Medical decision making: Patient probably has a sinusitis symptomatically at this time.DepartureClinical ImpressionClinical ImpressionPrimary Impression:Sinusitis, acuteQualifiers:Sinusitis location:unspecified locationRecurrence:not specified as recurrentQualified Code:J01.90 - Acute sinusitis, unspecifiedReport Date 09/21/17Electronically Signed Esig Date Esig Romulo Cali Gregory P. DO 09/22/17 1146 Normal [facility] Vital Signs Date Time Vital Sign Value Performing Clinician Facility 05-31-2023 09:00-0400 Body height 162.56 cm Jada Oliveros Other [facility] Other 05-31-2023 09:00-0400 Body mass index (BMI) [Ratio] 24.54 kg/m2 Jada Oliveros Other [facility] Other 05-31-2023 09:00-0400 Body weight 64.86 kg Jada Oliveros Other [facility] Other 05-31-2023 09:00-0400 Diastolic blood pressure 65 mm[Hg] Jada Oliveros Other [facility] Other 05-31-2023 09:00-0400 Systolic blood pressure 98 mm[Hg] Jada Oliveros Other [facility] Other 11-08-2022 16:15-0400 Body height 162.56 cm Jada Oliveros Other [facility] Other 11-08-2022 16:15-0400 Body mass index (BMI) [Ratio] 25.4 kg/m2 Jada Oliveros Other [facility] Other 11-08-2022 16:15-0400 Body temperature 97.4 [degF] Jada Oliveros Other [facility] Other 11-08-2022 16:15-0400 Body weight 67.13 kg Jada Oliveros Other [facility] Other 11-08-2022 16:15-0400 Diastolic blood pressure 74 mm[Hg] Jada Oliveros Other [facility] Other 11-08-2022 16:15-0400 SaO2% (BldA) [Mass fraction] 99 % Jada Oliveros Other [facility] Other 11-08-2022 16:15-0400 Systolic blood pressure 120 mm[Hg] Jada Oliveros Other [facility] Other 06-12-2022 12:15-0400 Body height 162.56 cm Yolis James Other [facility] Other 06-12-2022 12:15-0400 Body mass index (BMI) [Ratio] 25.74 kg/m2 Yolis James Other [facility] Other 06-12-2022 12:15-0400 Body temperature 98.1 [degF] Yolis James Other [facility] Other 06-12-2022 12:15-0400 Body weight 68.04 kg Yolis James Other [facility] Other 06-12-2022 12:15-0400 Diastolic blood pressure 61 mm[Hg] Yolis James Other [facility] Other 06-12-2022 12:15-0400 Respiratory rate 18 /min Yolis James Other [facility] Other 06-12-2022 12:15-0400 SaO2% (BldA) [Mass fraction] 100 % Yolis James Other [facility] Other 06-12-2022 12:15-0400 Systolic blood pressure 108 mm[Hg] Yolis James Other [facility] Other Encounters Encounter Date Encounter Type Care Provider Facility Start: 05-31-2023 End: 05-31-2023 ambulatory Jada Oliveros Other [facility] Other Start: 05-31-2023 Office outpatient visit 15 minutes Jada Oliveros [facility] Start: 01-17-2023 End: 01-25-[address] ANA PAULA JOHN . Facility:[facility] Start: 01-09-2023 End: 01-10-[address] ANA PAULA JOHN . Facility:[facility] Start: 11-26-2022 Letter encounter Luisa Joo SENIOR CLINICAL RESEARCH SCIENTIST-REGULATORY AFFAIRS DIRECTOR Work Phone: [facility] Start: 11-21-2022 End: 11-21-[address] ANA PAULA JOHN . Facility:[facility] Start: 11-21-2022 End: 11-22-[address] ANA PAULA JOHN . Facility:[facility] Start: 11-08-2022 End: 11-08-2022 ambulatory Jada Oliveros Other [facility] Other Start: 11-08-2022 Office outpatient visit 15 minutes Jada Oliveros [facility] Start: 10-11-2022 End: 10-12-[address] ANA PAULA JOHN . Facility:[facility] Start: 09-23-2022 End: 09-24-[address] ANA PAULA JOHN . Facility:[facility] Start: 09-04-2022 Letter encounter Luisa Ge SENIOR CLINICAL RESEARCH SCIENTIST-REGULATORY AFFAIRS DIRECTOR [facility] Start: 07-12-2022 End: 07-12-[address] ANA PAULA JOHN . Facility:[facility] Start: 06-29-2022 End: 06-30-[address] ANA PAULA JOHN . Facility:[facility] Start: 06-12-2022 End: 06-12-2022 ambulatory Yolis James Other [facility] Other Start: 06-12-2022 Office outpatient ne w 20 minutes Yolis James [facility] Start: 05-05-[address] ANA PAULA JOHN . Facili ty:[facility] Start: 04-27-2022 End: 04-28-[address] ANA PAULA JOHN . Facility:[facility] Start: 03-23-2022 End: 03-24-[address] ANA PAULA JOHN . Facility:[facility] Start: 02-25-2022 End: 02-26-[address] ANA PAULA JOHN . Facility: Start: 02-24-2022 End: 02-25-2022 ambulatory NONE LISTED REQUEST Facility: Start: 05-11-2020 ambulatory [facility]ia [facility] Start: 11-07-2018 End: 11-08-2018 Emergency department patient visit NO FAMILY DOCTOR NO FAMILY DOCTOR Facility:[facility] Start: 09-21-2017 Emergency department patient visit No Family Physician Facility:[facility] Procedures Date Procedure Procedure Detail Performing Clinician Start: 07-08-2019 Microscopic observat ion [Identifier] in Cervix by Cyto stain Luisa Ge SENIOR CLINICAL RESEARCH SCIENTIST-REGULATORY AFFAIRS DIRECTOR Work Phone: Plan of Treatment Date Care Activity Detail Author Start: 2036 Shingles (RZV) Vacci ne (1 of 2) Shingles (RZV) Vaccine (1 of 2) [facility] Start: 06-26-2023 Tetanus vaccination Tetanus (T d or Tdap) Booster [facility] Start: 07-08-2022 Screening for malign ant neoplasm of cervix Pap Smear [facility] Start: 05-28-2022 Influenza vaccination Influenza Vacc ine (#1) [facility] Start: 02-23-1987 COVID-19 Vaccine (#1) COVID-19 Vacci ne (#1) [facility] Start: 1986 Screening for malign ant neoplasm of breast Mammography shared decision making (35 through 39 years) [facility] Immunizations Immunization Date Immunization Notes Care Provider Ubaldo araujo 10-23-2013 tuberculin skin test ; purified protein derivative solution, intradermal Luisa Ge APRN-REGULATORY AFFAIRS DIRECTOR Work Phone: [facility] 06-26-2013 tetanus toxoid, redu thalia diphtheria toxoid, and acellular pertussis vaccine, adsorbed Luisa Ge SENIOR CLINICAL RESEARCH SCIENTIST-REGULATORY AFFAIRS DIRECTOR Work Phone: [facility] 05-08-2013 human papilloma viru s vaccine, quadrivalent Luisa Ge SENIOR CLINICAL RESEARCH SCIENTIST-REGULATORY AFFAIRS DIRECTOR Work Phone: [facility] 01-10-2013 human papilloma viru s vaccine, quadrivalent Luisa Ge SENIOR CLINICAL RESEARCH SCIENTIST-REGULATORY AFFAIRS DIRECTOR Work Phone: [facility] 11-15-2012 human papilloma viru s vaccine, quadrivalent Luisa Ge SENIOR CLINICAL RESEARCH SCIENTIST-REGULATORY AFFAIRS DIRECTOR Work Phone: [facility] 10-16-2010 tetanus toxoid, redu thalia diphtheria toxoid, and acellular pertussis vaccine, adsorbed Luisa Ge SENIOR CLINICAL RESEARCH SCIENTIST-REGULATORY AFFAIRS DIRECTOR Work Phone: [facility] Payers Date Payer Category Payer Medicaid [id number] 1986 Unknown [id number] 2.16.8 [id number] 1986 Unknown [id number] 2.16. 840.1.715378.3.579.2.732 1986 Unknown [id number] 2.16.84 0.1.226063.3.579.2.593 1986 Unknown [id number] 2.16.84 0.1.801586.3.579.2.593 1986 Unknown [id number] 2.16.84 0.1.781342.3.579.2.593 1986 Unknown [id number] 2.16.84 0.1.692429.3.579.2.593 1986 Unknown [id number] 2.16.84 0.1.896136.3.579.2.593 1986 Unknown [id number] 2.16.84 0.1.644601.3.579.2.593 1986 Unknown [id number] 2.16.84 0.1.337474.3.579.2.593 1986 Unknown [id number] 2.16.84 0.1.815140.3.579.2.593 1986 Unknown [id number] 2.16.84 0.1.905659.3.579.2.593 1986 Unknown [id number] 2.16.84 0.1.943439.3.579.2.593 1986 Unknown [id number] 2.16.84 0.1.313230.3.579.2.593 1986 Unknown [id number] 2.16.84 0.1.349525.3.579.2.593 1986 Unknown [id number] 2.16.84 0.1.983121.3.579.2.593 1958 Medicaid [id number] 1958 Medicaid [id number] 2. [id number] [facility] HUM [id number] 2.16.840.1.533143.19 Social History Date Type Detail Facility Sex Assigned At [facility] Start: 10-17-2017 Tobacco smoking stat [facility] Ex-smoker [facility] End: 03-28-2017 History of tobacco use Current smoker [facility] End: 03-28-2017 History of tobacco use Cigarette Smoker [facility] Start: 10-17-2017 End: 04-17-2020 Cigarettes smoked current (pack per day) - Reported 0.5 [facility] Start: 10-17-2017 Tobacco use and exposure Smokeless tobacco non-user [facility] Start: 04-17-2020 Alcohol intake Current drinke r of alcohol (finding) [facility] Start: 10-17-2017 Tobacco Comment Patient quit A ugust 2016 [facility] Start: 1985 Sex Assigned At Female [facility] Evaluation note 05-31-2023 Note Date & Type Note Facility 05-31-2023 Evaluation note Encounter Date Diagnosis Assessment Notes May, Dandruff in adult (ICD-10 - L21.0) Trial of medicated shampoo. Call if no improvement. [facility] Other Evaluation note 11-08-2022 Note Date & Type Note Facility 11-08-2022 Evaluation note Encounter Date Diagnosis Assessment Notes Oct, Chronic eczematous otitis externa of both ears (ICD-10 - H60.8X3) Discussed treatment. Will add drop with steroid component. Discussed proper hearing protection - possibly ear muff style. Also discussed ENT referral if needed. [facility] Other Evaluation note 06-12-2022 Note Date & Type Note Facility 06-12-2022 Evaluation note Encounter Date Diagnosis Assessment Notes May, Acute otitis externa of left ear, unspecified type (ICD-10 - H60.502) Discussed diagnosis with patient. Use ear drops as prescribed. Discussed proper installation of ear drops, drops should be at room temperature before instilling, lie down with affected ear facing up. After instilling drops gently wiggle ear to help drops reach ear canal, lay with affected ear facing up for 3-5 minutes. Supportive care as discussed, increase fluid intake, Tylenol/Motrin as needed for discomfort, warm compress. Proper ear hygiene discussed. Avoid putting anything inside the ear such as Q-tips, do not use other OTC ear drops unless directed by a provider. Avoid submerging head underwater, avoid water sports for 7-10 days, when showering place cotton ball lightly coated with petroleum jelly as ear plug to prevent water from going into ear, if water inside ear after shower may use hair dresser on lowest cool setting to blow dry. Follow up with PCP or UC if no improvement in the next 2-3 days. Immediate eval for severe ear pain, severe headache, neck pain/stiffness, pain, erythema, or swelling behind the ear, fever, N/V, hearing loss, fever, or any other new or concerning symptoms. Patient verbalizes understanding and is agreeable to treatment plan [facility] Other History general Narrative - Reported Note Date & Type Note Facility History general Narrative - Reported Type Medical History Infertility, female Medical History PCOS (polycystic ovarian syndrom e) Medical History Amenorrhea Medical History Hormonal disorder Medical History H/O gastric bypass Medical History Amenorrhea Medical History Abdominal pannus Medical History Pruritus Medical History Abnormal uterine bleeding Medical History Disorder of ovulation Surgical History DILATION AND CURETTAGE OF UTERU S 2019 Surgical History GASTRIC BYPASS- BARIATRIC SLEEV E 2019 Surgical History OVARIAN RESECTION 2014 Surgical History MENISCUS REPIAR 2017 Hospitalization History SEE SURGICAL HX [facility] Other Summary Purpose Family History No Family History Records FoundNo Family History Records FoundNo Family History Records FoundNo Family History Records FoundNo Family History Records FoundNo Family History Records Found Advance Directives Latest Code Status on File Code Status Date Activated Date Inactivated Comments Full Code 05/29/2019 12:48 PM 05/30/2019 10:47 PM Latest Code Status on File Code Status Date Activated Date Inactivated Comments Full Code 05/29/2019 12:48 PM 05/30/2019 10:47 PM Additional Source Comments INFORMATION SOURCE (unrecogn ized section and content) DATE CREATED AUTHOR 02/19/2018 [facility] DATE CREATED AUTHOR AUTHOR'S ORGANIZ ATION 11/14/2018 [facility] DATE CREATED AUTHOR AUTHOR'S ORGANIZ ATION 09/17/2020 [facility] DATE CREATED AUTHOR AUTHOR'S ORGANIZ ATION 12/23/2020 [facility] DATE CREATED AUTHOR AUTHOR'S ORGANIZ ATION 10/21/2021 [facility] DATE CREATED AUTHOR AUTHOR'S ORGANIZ ATION 02/03/2023 [facility] REASON FOR VISIT (unrecogniz ed section and content) EAR PAINEar InfectionCHECK U P Care Teams (unrecognized sec tion and content) Industrial Relations Worker Relationship Specialty Start Date End Date Luisa Ge APRN-REGULATORY AFFAIRS DIRECTOR [address] [place] [phone] LEAD MANUFACTURING ENGINEERING TECH Pulmonary Medicine 06/02/20 Jamie Hardin MD [address] [place] [phone] Physician General Surgery 06/02/20 Page Faulkner M.Ed., R.[place]ana., L.D. [address] [address] Dietitian Nutrition 06/02/20 Rita Catherine MD [address] [place] [phone] Physician Obstetrics/Gynecology 06/02/20 Rishabh Hi APRN-REGULATORY AFFAIRS DIRECTOR [address] [place] [phone] LEAD MANUFACTURING ENGINEERING TECH Anesthesiology 06/02/20 Industrial Relations Worker Relationship Specialty Start Date End Date Luisa Ge APRN-REGULATORY AFFAIRS DIRECTOR [address] [place] [phone] LEAD MANUFACTURING ENGINEERING TECH Pulmonary Medicine 06/02/20 Jamie Hardin MD [address] [place] [phone] Physician General Surgery 06/02/20 Page Faulkner M.Ed., R.D., [place] [address] Dietitian Nutrition 06/02/20 Rita Catherine MD [address] [place] [address] Physician Obstetrics/Gynecology 06/02/20 Rishabh Hi, SENIOR CLINICAL RESEARCH SCIENTIST-REGULATORY AFFAIRS DIRECTOR [address] [place] [phone] LEAD MANUFACTURING ENGINEERING TECH Anesthesiology 06/02/20 FOR RECORDS PERTAINING TO PATIENTS WHO ARE OR HAVE BEEN ENROLLED IN A CHEMICAL DEPENDENCY/SUBSTANCEABUSE PROGRAM, SOME INFORMATION MAY BE OMITTED. This clinical summary was aggregated from multiple sources. Caution should be exercised in using it in the provision of clinical care. This summary normalizes information from multiple sources, and as a consequence, information in this document may materially change the coding, format and clinical context of patient data. In addition, data may be omitted in some cases. CLINICAL DECISIONS SHOULD BE BASED ON THE PRIMARY CLINICAL RECORDS. [facility] [employer] provides no warranty or guarantee of the accuracy or completeness of information in this document.
[2023-09-03 10:08] LABS: Progesterone 16.2 ng/mL (.)
== END 2023-09-02 09:28 | disposition home or self-care (01) ==
PROVIDERS: PCP Family Medicine; Visit Provider Obstetrics & Gynecology
DX: N97.9 Female infertility, unspecified (principal); N97.0 Female infertility associated with anovulation
CPT/HCPCS: 36415; 84144

== ENCOUNTER 2023-09-18 16:34 | Outpatient (OUT) | payer BC, SELFPAY ==
--- OUTSIDE RECORDS SUMMARY | 2023-09-18 16:39 | XMS_ITS | CCD ---
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 Role Phone No Family Physician Unavailable Unavailable No Family Physician Unavailable Unavailable NO FAMILY DOCTOR, NO FAMILY DOCTOR Primary Care Unavailable YANIRA MARTINO Attending Unavailable Swathi DANIEL Referring Unavailab le PROVIDER, UNKNOWN Attending Unavailable PROVIDER, UNKNOWN Admitting Unavailable WILSON CASTRO Primary Care Unavailable Yolis James Unavailable Joo PACKER, Luisa Unavailable [phone] Lashawn MESSER, Jamie Unavailable Kaushik West, R.D., L.D., Page Unavailable Florin MESSER, Rita Unavailable Rishabh Funes Unavailable Jada Oliveros Unavailable Joo PACKER Luisa Unavailable [phone] Lashawn MESSRE, Jamie Unavailable Kaushik Nancy, R.D., L.D., Page Unavailable Florin MESSER, Rita Unavailable Rishabh Funes Unavailable ALVARO Hale, DR GOSS Attending Unavailable ALVARO ., DR GOSS Admitting Unavailable DR JADA OLIVEROS Primary Care Unavailable ALVARO ., DR GOSS Consulting Unavailable REQUEST, DR NONE LISTED Primary Care Unavaila cheri JOHN ., DR GOSS Attending Unavailable WETUMKA, DR YANIRA Steele Consulting Unavailable ALVARO ., [...] / neomycin 3.5 mg/ml / polymyxin b 61831 unt/ml otic solution (1 source) Aminoglycoside Antibacterial, [...] QUANT HCGon 01-17-2023 HCG QUANT <1 Normal [facility] Comment on above: Performed By: #### P REGQNT #### [facility] [address] [address] [address] Meghan Vital HCG RANGE SEE BELOW Normal [facility] Comment on above: Result Comment: 5-50 0.2-1 WEEK 50-500 1-2 WEEKS 100-5,000 2-3 WEEKS 500-10,000 3-4 WEEKS 1,000-50,000 4-5 WEEKS 10,000-100,000 5-6 WEEKS 15,000-200,000 6-8 WEEKS 10,000-100,000 2-3 MONTHS Performed By: #### P REGQNT #### [facility] [address] [place] [address] Dr. Meghan Vital PROGESTERONEon 01-10-2023 Progesterone 8.9 ng/mL [facility] Comment on above: Result Comment: Foll icular phase 0.1 - 0.9 Luteal phase 1.8 - 23.9 Ovulation phase 0.1 - 12.0 First trimester 11.0 - 44.3 Second trimester 25.4 - 83.3 Third trimester 58.7 - 214.0 Postmenopausal 0.0 - 0.1 Performed By: #### H CGSUB #### [facility] [address] [place] [address] Dr. Meghan Vital PAP ACOG PANEL 2: 30 to 65on 11-30-2022 . . Normal [facility] Comment on above: Result Comment: Perf ormed at: WB Performed By: #### [id number] #### [facility] [address] [place] [address] Dr. Meghan Vital Age Gdln ACOG Testing - [facility] Comment on above: Performed By: #### [id number] #### [facility] [address] [place] [address] Dr. Meghan Vital DIAGNOSIS: Comment [facility] Comment on above: Result Comment: NEGA TIVE FOR INTRAEPITHELIAL LESION OR MALIGNANCY. Performed at: WB Performed By: #### [id number] #### [facility] [address] [place] [address] Dr. Meghan Vital HPV Aptima Positive Abnormal Negative [facility] Comment on above: Result Comment: This nucleic acid amplification test detects fourteen high-risk HPV types (16,18,31,33,35,39,45,51,52,56,58,59,66,68) without differentiation. Performed at: =G Performed By: #### [id number] #### [facility] [address] [place] [address] Dr. Meghan Vital HPV Genotype 16 Negative Normal Negative [facility] Comment on above: Performed By: #### [id number] #### [facility] [address] [place] [address] Dr. Meghan Vital HPV Genotype 18,45 Negative Normal Negative [facility] Comment on above: Performed By: #### 4 [id number] #### [facility] [address] [address] [address] Meghan Vital HPV Genotype Reflex Comment Normal [facility] Comment on above: Result Comment: Aiyana iqbal, see HPV Genotype results. Performed at: WB Performed By: #### 4 [id number] #### [facility] [address] [place] [address] Dr. Meghan Vital Methodology: Comment Normal [facility] Comment on above: Result Comment: This liquid based ThinPrep(R) pap test was screened with the use of an image guided system. Performed at: WB Performed By: #### [id number] #### [facility] [address] [place] [address] Dr. Meghan Vital Note: Comment Normal [facility] Comment on above: Result Comment: The Pap smear is a screening test designed to aid in the detection of premalignant and malignant conditions of the uterine cervix. It is not a diagnostic procedure and should not be used as the sole means of detecting cervical cancer. Both false-positive and false-negative reports do occur. . Performed at: WB Performed By: #### [id number] #### [facility] [address] [place] [address] Dr. Meghan Vital Performed by: Comment Normal [facility] Comment on above: Result Comment: Rahul Kincaid, Carpet Weaver (ASCP) Performed at: WB Performed By: #### 4 [id number] #### [facility] [address] [place] [address] Dr. Meghan Vital Specimen adequacy: Comment Normal [facility] Comment on above: Result Comment: Sati sfactory for evaluation. Endocervical and/or squamous metaplastic cells (endocervical component) are present. Performed at: WB Performed By: #### 4 [id number] #### [facility] [address] [address] [address] Meghan Vital ANTI-MULLERIAN HORMONEon Anti-Mullerian Hormone (AMH) 3.03 ng/mL Normal [facility] Comment on above: Result Comment: For assays employing antibodies, the possibility exists for interference by heterophile antibodies in the samples.1 1.Bailey Dickson Interferences in Immunoassays - still a threat. Clin. Chem. 2000; 46: 8517-1103. This test was developed and its performance characteristics determined by [employer]. It has not been cleared or approved by the Food and Drug Administration. Reference Range: Females 36 - 40y: 0.42 - 8.34 Median 1.69 AMH concentrations of >= 1.06 ng/mL is correlated with a better response to ovarian stimulation, produced more retrievable oocytes and higher odds of live according to Shaniceer et al. Fertility and Sterility. 2010: 94:6390-7719. The current AMH test method correlates with [...] tumor. Performed By: #### H CGSUB #### [facility] [address] [place] [address] Dr. Meghan Vital CBC AUTO DIFFon 11-21-2022 BASO # 0.1 103/ul Normal 0.0-0.1 [facility] Comment on above: Performed By: #### H CGSUB #### [facility] [address] [place] [address] Dr. Meghan Vital Basophils/100 WBC (Bld) 0.8 % Normal 0.2-2.0 [facility] Comment on above: Performed By: #### H CGSUB #### [facility] [address] [place] [address] Dr. Meghan Vital EO # 0.2 103/ul Normal 0.0-0.7 [facility] Comment on above: Performed By: #### H CGSUB #### [facility] [address] [place] [address] Dr. Meghan Vital Eosinophils/100 WBC (Bld) 2.3 % Normal 0.9-7.0 [facility] Comment on above: Performed By: #### H CGSUB #### [facility] [address] [place] [address] Dr. Meghan Vital Erythrocyte distribution width (RBC) [Ratio] 13.3 % Normal 11.0-15.0 [facility] Comment on above: Performed By: #### H CGSUB #### [facility] [address] [place] [address] Dr. Meghan Vital Hematocrit (Bld) [Volume fraction] 42.4 % Normal 36.0-48.0 [facility] Comment on above: Performed By: #### H CGSUB #### [facility] [address] [place] [address] Dr. Meghan Vital Hemoglobin (Bld) [Mass/Vol] 13.6 g/dL Normal 12.0-16.0 [facility] Comment on above: Performed By: #### H CGSUB #### [facility] [address] [place] [address] Dr. Meghan Vital IG # 0.01 10e3/ul Normal 0.00-0.03 [facility] Comment on above: Performed By: #### H CGSUB #### [facility] [address] [place] [address] Dr. Meghan Vital IG % 0.1 % Normal 0.0-0.5 [facility] Comment on above: Performed By: #### H CGSUB #### [facility] [address] [place] [address] Dr. Meghan Vital LYMPH # 3.9 103/ul Critically high 1.2-3.8 [facility] Comment on above: Performed By: #### H CGSUB #### [facility] [address] [place] [address] Dr. Meghan Vital Lymphocytes/100 WBC (Bld) 42.7 % Normal 20.5-60.0 [facility] Comment on above: Performed By: #### H CGSUB #### [facility] [address] [place] [address] Dr. Meghan Vital MANUAL DIFF REQ NO Normal [facility] Comment on above: Performed By: #### H CGSUB #### [facility] [address] [place] [address] Dr. Meghan Vital MCH (RBC) [Entitic mass] 27.4 pg Normal 26.7-34.0 [facility] Comment on above: Performed By: #### H CGSUB #### [facility] [address] [place] [address] Dr. Meghan Vital MCHC (RBC) [Mass/Vol] 32.1 g/dL Normal 29.9-35.2 [facility] Comment on above: Performed By: #### H CGSUB #### [facility] [address] [place] [address] Dr. Meghan Vital MCV (RBC) [Entitic vol] 85.3 fL Normal 81.0-99.0 [facility] Comment on above: Performed By: #### H CGSUB #### [facility] [address] [place] [address] Dr. Meghan Vital MONO # 0.6 103/ul Normal 0.3-0.8 [facility] Comment on above: Performed By: #### H CGSUB #### [facility] [address] [place] [address] Dr. Meghan Vital Monocytes/100 WBC (Bld) 6.1 % Normal 1.7-12.0 [facility] Comment on above: Performed By: #### H CGSUB #### [facility] [address] [place] [address] Dr. Meghan Vital NEUT # 4.3 103/ul Normal 1.4-6.5 [facility] Comment on above: Performed By: #### H CGSUB #### [facility] [address] [address] [address] Meghan Vital Neutrophils/100 WBC (Bld) 48.0 % Normal 43.0-75.0 [facility] Comment on above: Performed By: #### H CGSUB #### [facility] [address] [address] [address] Meghan Vital Platelet mean volume (Bld) [Entitic vol] 11.5 fL Normal 9.5-13.5 [facility] Comment on above: Performed By: #### H CGSUB #### [facility] [address] [address] [address] Meghan Vital PLT 251 103/ul Normal 150-450 [facility] Comment on above: Performed By: #### H CGSUB #### [facility] [address] [place] [address] Dr. Meghan Vital RBC 4.97 106/ul Normal 4.20-5.40 [facility] Comment on above: Performed By: #### H CGSUB #### [facility] [address] [address] [address] Meghan Vital WBC 9.0 103/ul Normal 4.0-11.0 [facility] Comment on above: Performed By: #### H CGSUB #### [facility] [address] [place] [address] Dr. Meghan Vital FREE T4on 11-21-2022 Free T4 [Mass/Vol] 1.03 ng/dL Normal 0.76-1.46 [facility] Comment on above: Performed By: #### F T4 #### [facility] [address] [place] [address] Dr. Meghan Vital GLYCOHEMOGLOBIN A1Con 2022 ADA RECOMMENDATION SEE BELOW Normal [facility] Comment on above: Result Comment: ADA RECOMMENDED LIMIT 4.0 - 6.0 ADA THERAPEUTIC TARGET < 7.0 ACTION SUGGESTED > 7.0 Performed By: #### H CGSUB #### [facility] [address] [place] [address] Dr. Meghan Vital Glucose [Mass/Vol] 97 mg/dL Normal [facility] Comment on above: Performed By: #### H CGSUB #### [facility] [address] [place] [address] Dr. Meghan Vital HbA1c (Bld) [Mass fraction] 5.0 % Normal 4.5-6.2 [facility] Comment on above: Performed By: #### H CGSUB #### [facility] [address] [place] [address] Dr. Meghan Vital TSHon 11-21-2022 TSH 1.636 uIU/mL Normal 0.358-3.74 0 [facility] Comment on above: Performed By: #### H CGSUB #### [facility] [address] [place] [address] Dr. Meghan Vital PROGESTERONEon 10-12-2022 Progesterone 6.8 ng/mL Normal [facility] Comment on above: Result Comment: Foll icular phase 0.1 - 0.9 Luteal phase 1.8 - 23.9 Ovulation phase 0.1 - 12.0 First trimester 11.0 - 44.3 Second trimester 25.4 - 83.3 Third trimester 58.7 - 214.0 Postmenopausal 0.0 - 0.1 Performed By: #### H CGSUB #### [facility] [address] [place] [address] Dr. Meghan Vital CBC AUTO DIFFon 09-23-2022 BASO # 0.1 103/ul Normal 0.0-0.1 [facility] Comment on above: Performed By: #### C BC #### [facility] [address] [place] [address] Dr. Meghan Vital Basophils/100 WBC (Bld) 1.2 % Normal 0.2-2.0 [facility] Comment on above: Performed By: #### C BC #### [facility] [address] [place] [address] Dr. Meghan Vital EO # 0.2 103/ul Normal 0.0-0.7 [facility] Comment on above: Performed By: #### C BC #### [facility] [address] [place] [address] Dr. Meghan Vital Eosinophils/100 WBC (Bld) 2.4 % Normal 0.9-7.0 [facility] Comment on above: Performed By: #### C BC #### [facility] [address] [place] [address] Dr. Meghan Vital Erythrocyte distribution width (RBC) [Ratio] 13.1 % Normal 11.0-15.0 [facility] Comment on above: Performed By: #### C BC #### [facility] [address] [place] [address] Dr. Meghan Vital Hematocrit (Bld) [Volume fraction] 38.1 % Normal 36.0-48.0 [facility] Comment on above: Performed By: #### C BC #### [facility] [address] [place] [address] Dr. Meghan Vital Hemoglobin (Bld) [Mass/Vol] 13.4 g/dL Normal 12.0-16.0 [facility] Comment on above: Performed By: #### C BC #### [facility] [address] [place] [address] Dr. Meghan Vital IG # 0.01 10e3/ul Normal 0.00-0.03 [facility] Comment on above: Performed By: #### C BC #### [facility] [address] [place] [address] Dr. Meghan Vital IG % 0.1 % Normal 0.0-0.5 [facility] Comment on above: Performed By: #### C BC #### [facility] [address] [place] [address] Dr. Meghan Vital LYMPH # 3.4 103/ul Normal 1.2-3.8 [facility] Comment on above: Performed By: #### C BC #### [facility] [address] [place] [address] Dr. Meghan Vital Lymphocytes/100 WBC (Bld) 45.2 % Normal 20.5-60.0 [facility] Comment on above: Performed By: #### C BC #### [facility] [address] [place] [address] Dr. Meghan Vital MANUAL DIFF REQ NO Normal [facility] Comment on above: Performed By: #### C BC #### [facility] [address] [place] [address] Dr. Meghan Vital MCH (RBC) [Entitic mass] 27.8 pg Normal 26.7-34.0 [facility] Comment on above: Performed By: #### C BC #### [facility] [address] [place] [address] Dr. Meghan Vital MCHC (RBC) [Mass/Vol] 35.2 g/dL Normal 29.9-35.2 [facility] Comment on above: Performed By: #### C BC #### [facility] [address] [place] [address] Dr. Meghan Vital MCV (RBC) [Entitic vol] 79.0 fL Critically low 81.0-99.0 [facility] Comment on above: Performed By: #### C BC #### [facility] [address] [place] [address] Dr. Meghan Vital MONO # 0.4 103/ul Normal 0.3-0.8 [facility] Comment on above: Performed By: #### C BC #### [facility] [address] [place] [address] Dr. Meghan Vital Monocytes/100 WBC (Bld) 5.3 % Normal 1.7-12.0 [facility] Comment on above: Performed By: #### C BC #### [facility] [address] [place] [address] Dr. Meghan Vital NEUT # 3.4 103/ul Normal 1.4-6.5 [facility] Comment on above: Performed By: #### C BC #### [facility] [address] [place] [address] Dr. Meghan Vital Neutrophils/100 WBC (Bld) 45.8 % Normal 43.0-75.0 [facility] Comment on above: Performed By: #### C BC #### [facility] [address] [place] [address] Dr. Meghan Vital Platelet mean volume (Bld) [Entitic vol] 11.4 fL Normal 9.5-13.5 [facility] Comment on above: Performed By: #### C BC #### [facility] [address] [place] [address] Dr. Meghan Vital PLT 280 103/ul Normal 150-450 [facility] Comment on above: Performed By: #### C BC #### [facility] [address] [place] [address] Dr. Meghan Vital RBC 4.82 106/ul Normal 4.20-5.40 [facility] Comment on above: Performed By: #### C BC #### [facility] [address] [place] [address] Dr. Meghan Vital WBC 7.5 103/ul Normal 4.0-11.0 [facility] Comment on above: Performed By: #### C BC #### [facility] [address] [place] [address] Dr. Meghan Vital FREE T4on 09-23-2022 Free T4 [Mass/Vol] 1.17 ng/dL Normal 0.76-1.46 [facility] Comment on above: Performed By: #### H CGSUB #### [facility] [address] [place] [address] Dr. Meghan Vital GLYCOHEMOGLOBIN A1Con 2022 ADA RECOMMENDATION SEE BELOW Normal [facility] Comment on above: Result Comment: ADA RECOMMENDED LIMIT 4.0 - 6.0 ADA THERAPEUTIC TARGET < 7.0 ACTION SUGGESTED > 7.0 Performed By: #### A 1C #### [facility] [address] [place] [address] Dr. Meghan Vital Glucose [Mass/Vol] 100 mg/dL Normal [facility] Comment on above: Performed By: #### A 1C #### [facility] [address] [place] [address] Dr. Meghan Vital HbA1c (Bld) [Mass fraction] 5.1 % Normal 4.5-6.2 [facility] Comment on above: Performed By: #### A 1C #### [facility] [address] [place] [address] Dr. Meghan Vital TSHon 09-23-2022 TSH 1.235 uIU/mL Normal 0.358-3.74 0 [facility] Comment on above: Performed By: #### T SH #### [facility] [address] [place] [address] Dr. Meghan Vital PREG QUANT HCGon 07-12-2022 HCG QUANT 1 mIU/mL Normal [facility] Comment on above: Performed By: #### P REGQNT #### [facility] [address] [place] [address] Dr. Meghan Vital HCG RANGE SEE BELOW Normal [facility] Comment on above: Result Comment: 5-50 0.2-1 WEEK 50-500 1-2 WEEKS 100-5,000 2-3 WEEKS 500-10,000 3-4 WEEKS 1,000-50,000 4-5 WEEKS 10,000-100,000 5-6 WEEKS 15,000-200,000 6-8 WEEKS 10,000-100,000 2-3 MONTHS Performed By: #### P REGQNT #### [facility] [address] [place] [address] Dr. Meghan Vital XR HYSTEROSALPINGOGRAMon XR HYSTEROSALPINGOGRAM [...] YADIRA BAKER Date: 2022-07-12 12:12 Normal [facility] PROGESTERONEon 06-30-2022 Progesterone 20.9 ng/mL Normal [facility] Comment on above: Result Comment: Foll icular phase 0.1 - 0.9 Luteal phase 1.8 - 23.9 Ovulation phase 0.1 - 12.0 First trimester 11.0 - 44.3 Second trimester 25.4 - 83.3 Third trimester 58.7 - 214.0 Postmenopausal 0.0 - 0.1 Performed By: #### P PHIL #### [facility] [address] [place] [address] Dr. Meghan Vital HCG-BETA SUBUNIT QUANTon hCG,Beta Subunit,Qnt,Serum <1 Normal [facility] Comment on above: Result Comment: Fema le (Non-) 0 - 5 (Postmenopausal) 0 - 8 . Female () Weeks of Gestation 3 6 - 71 4 10 - 750 5 217 - 7138 6 158 - 14726 7 [id number] [phone] 8 74134 -996039 9 41274 -875880 10 26616 -650285 12 79652 -719108 14 87224 - 17054 15 59935 - 69762 16 1763 - 51804 17 8175 - 55979 18 8099 - 26864 Jeremy ECLIA methodology Performed By: #### H CGSUB #### [facility] [address] [place] [address] Dr. Meghan Vital HCG-BETA SUBUNIT QUANTon hCG,Beta Subunit,Qnt,Serum <1 Normal [facility] Comment on above: Result Comment: Fema le (Non-) 0 - 5 (Postmenopausal) 0 - 8 . Female () Weeks of Gestation 3 6 - 71 4 10 - 750 5 217 - 7138 6 158 - 15907 7 3697 -803595 8 59197 -147318 9 00520 -591989 10 52318 -226157 12 68199 -692847 14 01921 - 74637 15 70416 - 12971 16 8740 - 43314 17 8175 - 37176 18 8099 - 46969 Jeremy ECLIA methodology Performed By: #### H CGSUB #### [facility] [address] [place] [address] Dr. Meghan Vital PROGESTERONEon 02-26-2022 Progesterone <0.1 Normal [facility] Comment on above: Result Comment: Foll icular phase 0.1 - 0.9 Luteal phase 1.8 - 23.9 Ovulation phase 0.1 - 12.0 First trimester 11.0 - 44.3 Second trimester 25.4 - 83.3 Third trimester 58.7 - 214.0 Postmenopausal 0.0 - 0.1 Performed By: #### P PHIL #### [facility] [address] [place] [address] Dr. Meghan Vital US PELVIS AND TRANSVAGon [...] by: YANIRA MICHAEL Date: 2022-02-24 16:57 Normal [facility] Ambulatory Clinical Summaryo n 12-22-2020 Ambulatory Clinical Summary {[id number] Normal [facility] Office/Clini c Noteon 12-22-2020 Family [...] documented 3008F Office Visit Level 2 Est 19999 2. Tobacco use (Z72.0: Tobacco use) We [...] smoker 1034F Office Visit Level 2 Est 59338 3. Hordeolum externum right lower eyelid (H00.012: Hordeolum externum right lower eyelid) Will treat with bacitracin ointment. May use warm compresses 3-4 x day. FU with PCP if not gradually improving over next 7 days, sooner if significantly spreading erythema, edema, warmth, fever. Patient verbalized understanding of tx plan Ordered: Office Visit Level 2 Est 19104 Orders: erythromycin ophthalmic, 0.5 in, OPTH, QID [...] Family History Family history is negative Normal [facility] Comment on above: Result Comment: Elec tronically [...] methods. Where to find more information ? [place] [employer]: www.lung.org ? [place]: www.cancer.org Summary ? Smoking cigarettes [...] Reviewed: 08/18/2017 [employer] Patient Education ? 2020 [employer] [facility] Provider Letteron 12-22-2020 Provider Letter (Inserted Image. Mary ble to display) December 22, 2020 FARTUN RODRÍGUEZ [address] [place] [phone] FARTUN RODRÍGUEZ 1985 To Whom It May Concern, Please excuse above patient from work. 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 Cigarettes, Yes, 11/17/2020 [facility] Comment on above: Result Comment: Elec tronically [...] to help relieve symptoms, such as: ? Fiqq-zcj-nnxoeqd cold medicines. ? Cough suppressants. Coughing is [...] other clear broths. General instructions ? Take huxk-pgg-ieiwacl and prescription medicines only as told by [...] and water are not available, use hand fish icer. ? Avoid touching your mouth, face, eyes, [...] common infecti (more content not included)... Normal [facility] Provider Letteron 11-17-2020 Provider Letter (Inserted Image. Mary ble to display) November 17, 2020 FARTUN RODRÍGUEZ [address] [place] [phone] FARTUN RODRÍGUEZ 1985 To Whom It May Concern, Please excuse above patient from work. Date of Illness: From: 11/17/2020 To: 11/18/2020 May Return to Work On:11/19/2020 Comments: Patient above was seen at [facility] on 11/17/2020. Sincerely, [facility] [address] [place] [address] [facility] Provider Letteron 09-22-2020 Provider Letter (Inserted Image. Mary ble to display) September 22, 2020 FARTUN RODRÍGUEZ [address] [place] [phone] FARTUN RODRÍGUEZ 1985 To Whom It May Concern, Please excuse above patient from work. Date of Illness: From: 09/22/2020 May Return to Work On:09/23/2020 Comments: The above patient may return back to work on the above date. Sincerely, [facility] [address] [place] [address] [facility] SURGICAL PATH REPORTon 07-31 SURGICAL PATH REPORT [facility] Department of Pathology [address] [place] [phone] Name: FARTUN RODRÍGUEZ : 1985 Financial [id number] Number: Gender: Female Location: [facility] Admit 34 years Attending ANA PAULA JOHN Age: Provider: Ordering ANA PAULA JOHN Provider: Consulting: Surgical Pathology Report ACCESSION: COLLECTED DATE/TIME: RECEIVED DATE/TIME: PATHOLOGIST: [id number] 07/30/2020 13:19 EST 07/30/2020 13:19 EST SHADE MULLER MD Final Diagnosis Report for [facility] [place] [employer]: - [place] [place]. [...] cm. There are no grossly identifiable parts. Vamp Creaser sections are submitted in three cassettes. MP/ekaterina 07/30/2020 Tissue pathology report for: [facility], [address] [place] [id number]; Print Date/ 07/31/2020 15:05 EST Number: Time: [facility] Department of Pathology [address] [place] [phone] Name: FARTUN RODRÍGUEZ : 1985 Financial [id number] Number: Gender: Female Location: [facility] Admit 34 years Attending ANA PAULA JOHN Age: Provider: Ordering ANA PAULA JOHN Provider: Consulting: Surgical Pathology Report ACCESSION: COLLECTED DATE/TIME: RECEIVED DATE/TIME: PATHOLOGIST: [id number] 07/30/2020 13:19 EST 07/30/2020 13:19 EST YOHANA MESSER, SHADE Dolan Description PATHOLOGY SERVICES PROVIDED BY [facility] (CLIA #[id number]) in cooperation with [facility] at [address] [place] [address] (CLIA #[id number]) Codes CPT CODE: 60588 Print Date07/31/2020 15:05 EST Number: Time: Normal [facility] Comment on above: Performed By: #### [id number] #### [facility] Services [address] [place] [address] Quilting Machine Helper: Shade Muller MD Consenton 05-29-2020 Consent [id number]:127 Normal [facility] Registrationon 05-29-2020 Registration [id number]:127 [facility] Influenza A,Bon 11-08-2018 Influenza A, Rapid Ag Negative Normal Negative [facility] Comment on above: Performed By: #### 5 [id number] #### [facility] [address] [place] [address] Influenza B, Rapid Ag Negative Normal Negative [facility] Comment on above: Performed By: #### [id number] #### [facility] [address] [place] [address] Urinalysis with Reflex Cultu reon 11-08-2018 Appearance Nom (U) Clear Normal Clear [facility] Comment on above: Performed By: #### U ARFX #### [facility] [address] [place] [address] Ascorbic Acid Negative Normal Negative [facility] Comment on above: Performed By: #### U ARFX #### [facility] [address] [place] [address] Automated Urine Microscopy Not indicated Normal [facility] Comment on above: Performed By: #### U ARFX #### [facility] [address] [place] [address] Bilirubin mass conc Negative Normal Negative [facility] Comment on above: Performed By: #### U ARFX #### [facility] [address] [place] [address] Blood Negative Normal Negative [facility] Comment on above: Performed By: #### U ARFX #### [facility] [address] [place] [address] Color Nom (U) Yellow Normal [facility] Comment on above: Performed By: #### U ARFX #### [facility] [address] [place] [address] Glucose mass conc 50 mg/dL Abnormal Negative [facility] Comment on above: Performed By: #### U ARFX #### [facility] [address] [place] [address] Ketones Ql (U) Negative Normal Negative [facility] Comment on above: Performed By: #### U ARFX #### [facility] [address] [place] [address] Leukocytes Esterase Negative Normal Negative [facility] Comment on above: Performed By: #### U ARFX #### [facility] [address] [place] [address] Nitrite Ql (U) Negative Normal Negative [facility] Comment on above: Performed By: #### U ARFX #### [facility] [address] [place] [address] pH (Bld) 5.0 Normal 5.0-9.0 [facility] Comment on above: Performed By: #### U ARFX #### [facility] [address] [place] [address] Protein mass conc (U) Negative Normal Negative [facility] Comment on above: Performed By: #### U ARFX #### [facility] [address] [place] [address] Specific gravity Relative Density (U) 1.026 Normal 1.003-1.03 5 [facility] Comment on above: Performed By: #### U ARFX #### [facility] [address] [place] [address] Urobilinogen Qn (U) <2.0 Normal Negative [facility] Comment on above: Result Comment: Due to a manufacturing issue, low positive urobilinogen results may be falsely positive. Correlate with urine bilirubin and additional clinical/laboratory findings to assess the risk of hemolytic anemia or liver disease. If clinically indicated, repeat testing with an alternate method is available by contacting the laboratory within 24 hours. Performed By: #### U ARFX #### [facility] [address] [place] [address] STREP GROUP A AG QUALon 08-29 STREP GROUP A AG QUAL STREP GROUP A AG Q UAL GROUP A STREP NEGATIVE FOR STREPTOCOCCUS GROUP A ANTIGEN THROAT CULTURE: REFERRED TO [facility] FOR CULTURE CONFIRMATION CULTURE RESULT: CULTURE NEGATIVE FOR BETA STREP GROUP A Normal [facility] Comment on above: Performed By: #### M STREPA ####[facility] [id number] [place] [id number] ED Provider Reporton 018 ED Provider Report [facility] [place], [place] [address]Patient Name: FARTUN RODRÍGUEZ : [birth year]Acct #: [id number] Unit #: [id number] Arrival Date: 09/21/17 ER Physician: Yoshi [...] illicit drug usePast Social HistorySmoking Status:FORMER SMOKERTobacco UseCIGARETTESPacks/Bed3Ugai :LESS THAN 1 YEAR AGOReview of SystemsReview [...] Resp B/P B/P Pulse O2 O2 Flow NwD3Gfwt Ox Delivery Rate01/25 1712 36.5 83 18 [...] to follow-up with PCP.Disposition DecisionDischargeDispositio n Date09/21/17Decision [id number] obiologyDate/Time Procedure - StatusSource Rwdigw67/25 1745 Group A Streptococcus Screen (BETHANY) - [...] Cali Gregory P. DO 09/22/17 1146 Normal [facility] Vital Signs Date Time Vital Sign Value Performing Clinician Facility 05-31-2023 09:00-0400 Body height 162.56 cm Jada Oliveros [facility] Other 05-31-2023 09:00-0400 Body mass index (BMI) [Ratio] 24.54 kg/m2 Jada Oliveros [facility] Other 05-31-2023 09:00-0400 Body weight 64.86 kg Jada Oliveros Other [facility] Other 05-31-2023 09:00-0400 Diastolic blood pressure 65 mm[Hg] Jada Oliveros Other [facility] Other 05-31-2023 09:00-0400 Systolic blood pressure 98 mm[Hg] Jada Oliveros Other [facility] Other 11-08-2022 16:15-0400 Body height 162.56 cm Jada Oliveros Other [facility] Other 11-08-2022 16:15-0400 Body mass index (BMI) [Ratio] 25.4 kg/m2 Jada Oliveros Other [facility] Other 11-08-2022 16:15-0400 Body temperature 97.4 [degF] Jada Oliveros Other [facility] Other 11-08-2022 16:15-0400 Body weight 67.13 kg Jada Oliveros Other [facility] Other 11-08-2022 16:15-0400 Diastolic blood pressure 74 mm[Hg] Jada Oliveros Other [facility] Other 11-08-2022 16:15-0400 SaO2% (BldA) [Mass fraction] 99 % Jada Oliveros Other [facility] Other 11-08-2022 16:15-0400 Systolic blood pressure 120 mm[Hg] Jada Oliveros Other [facility] Other 06-12-2022 12:15-0400 Body height 162.56 cm Yolis James Other [facility] Other 06-12-2022 12:15-0400 Body mass index (BMI) [Ratio] 25.74 kg/m2 Yolis James Other [facility] Other 06-12-2022 12:15-0400 Body temperature 98.1 [degF] Yolis James Other [facility] Other 06-12-2022 12:15-0400 Body weight 68.04 kg Yolis James Other [facility] Other 06-12-2022 12:15-0400 Diastolic blood pressure 61 mm[Hg] Yolis James Other [facility] Other 06-12-2022 12:15-0400 Respiratory rate 18 /min Yolis James Other [facility] Other 06-12-2022 12:15-0400 SaO2% (BldA) [Mass fraction] 100 % Yolis James Other [facility] Other 06-12-2022 12:15-0400 Systolic blood pressure 108 mm[Hg] Yolis James Other [facility] Other Encounters Encounter Date Encounter Type Care Provider Facility Start: 05-31-2023 End: 05-31-2023 ambulatory Jada Oliveros Other [facility] Other Start: 05-31-2023 Office outpatient visit 15 minutes Jada Oliveros [facility] Start: 01-17-2023 End: 01-25-[address] ANA PAULA JOHN . Facility:[facility] Start: 01-09-2023 End: 01-10-[address] ANA PAULA JOHN . Facility:[facility] Start: 11-26-2022 Letter encounter Luisa Joo SECURITY PROGRAM MANAGER-PIT MANAGER Work Phone: [facility] Start: 11-21-2022 End: 11-21-[address] ANA PAULA JOHN . Facility:[facility] Start: 11-21-2022 End: 11-22-[address] ANA PAULA JOHN . Facility:[facility] Start: 11-08-2022 End: 11-08-2022 ambulatory Jada Oliveros Other [facility] Other Start: 11-08-2022 Office outpatient visit 15 minutes Jada Oliveros [facility] Start: 10-11-2022 End: 10-12-[address] ANA PAULA JOHN . Facility:[facility] Start: 09-23-2022 End: 09-24-[address] ANA PAULA JOHN . Facility:[facility] Start: 09-04-2022 Letter encounter Luisa Ge SECURITY PROGRAM MANAGER-PIT MANAGER [facility] Start: 07-12-2022 End: 07-12-[address] ANA PAULA JOHN . Facility:[facility] Start: 06-29-2022 End: 06-30-[address] ANA PAULA JOHN . Facility:[facility] Start: 06-12-2022 End: 06-12-2022 ambulatory Yolis James Other [facility] Other Start: 06-12-2022 Office outpatient ne w 20 minutes Yolis James [facility] Start: 05-05-[address] ANA PAULA JOHN . Facili ty:[facility] Start: 04-27-2022 End: 04-28-[address] ANA PAULA JOHN . Facility:[facility] Start: 03-23-2022 End: 03-24-[address] ANA PAULA JOHN . Facility:[facility] Start: 02-25-2022 End: 02-26-[address] ANA PAULA JOHN . Facility: Start: 02-24-2022 End: 02-25-2022 ambulatory NONE LISTED REQUEST Facility: Start: 05-11-2020 ambulatory RoyceAlexia Corne[facility] Start: 11-07-2018 End: 11-08-2018 Emergency department patient visit NO FAMILY DOCTOR NO FAMILY DOCTOR Facility:[facility] Start: 09-21-2017 Emergency department patient visit No Family Physician Facility:[facility] Procedures Date Procedure Procedure Detail Performing Clinician Start: 07-08-2019 Microscopic observat ion [Identifier] in Cervix by Cyto stain Luisa Ge SECURITY PROGRAM MANAGER-PIT MANAGER Work Phone: Plan of Treatment Date Care [...] shared decision making (35 through 39 years) [facility] Immunizations Immunization Date Immunization Notes Care Provider Ubaldo araujo 10-23-2013 tuberculin skin test ; purified protein derivative solution, intradermal Luisa Ge APRN-PIT MANAGER Work Phone: [facility] 06-26-2013 tetanus toxoid, redu thalia diphtheria toxoid, and acellular pertussis vaccine, adsorbed Luisa Ge SECURITY PROGRAM MANAGER-PIT MANAGER Work Phone: [facility] 05-08-2013 human papilloma viru s vaccine, quadrivalent Luisa Ge SECURITY PROGRAM MANAGER-PIT MANAGER Work Phone: [facility] 01-10-2013 human papilloma viru s vaccine, quadrivalent Luisa Ge SECURITY PROGRAM MANAGER-PIT MANAGER Work Phone: [facility] 11-15-2012 human papilloma viru s vaccine, quadrivalent Luisa Ge SECURITY PROGRAM MANAGER-PIT MANAGER Work Phone: [facility] 10-16-2010 tetanus toxoid, redu thalia diphtheria toxoid, and acellular pertussis vaccine, adsorbed Luisa Ge SECURITY PROGRAM MANAGER-PIT MANAGER Work Phone: [facility] Payers Date Payer Category Payer Medicaid [id number] 1985 Unknown [id number] 2.16.8 40.1.363278.3.579.2.355 1985 Unknown [id number] 2.16. 840.1.898138.3.579.2.732 1985 Unknown [id number] 2.16.84 0.1.369490.3.579.2.593 1985 Unknown [id number] 2.16.84 0.1.729262.3.579.2.593 1985 Unknown [id number] 2.16.84 0.1.473855.3.579.2.593 1985 Unknown [id number] 2.16.84 0.1.710767.3.579.2.593 1985 Unknown [id number] 2.16.84 0.1.608811.3.579.2.593 1985 Unknown [id number] 2.16.84 0.1.258310.3.579.2.593 1985 Unknown [id number] 2.16.84 0.1.664937.3.579.2.593 1985 Unknown [id number] 2.16.84 0.1.188840.3.579.2.593 1985 Unknown [id number] 2.16.84 0.1.723859.3.579.2.593 1986 Unknown [id number] 2.16.84 0.1.143921.3.579.2.593 1985 Unknown [id number] 2.16.84 0.1.230575.3.579.2.593 1985 Unknown [id number] 2.16.84 0.1.213776.3.579.2.593 1985 Unknown [id number] 2.16.84 0.1.744154.3.579.2.593 1958 Medicaid [id number] 1958 Medicaid [id number] 2. [id number] [facility] HUM [id number] 2.16.840.1.822530.19 Social History Date Type Detail Facility Sex Assigned At [facility] Other Start: 10-17-2017 Tobacco smoking stat [facility] Ex-smoker [facility] End: 03-28-2017 History of tobacco [...] of medicated shampoo. Call if no improvement. [facility] Other Evaluation note 11-08-2022 Note Date & Type Note Facility 11-08-2022 Evaluation note Encounter Date Diagnosis Assessment Notes Oct, Chronic eczematous otitis externa of both ears (ICD-10 - H60.8X3) Discussed treatment. Will add drop with steroid component. Discussed proper hearing protection - possibly ear muff style. Also discussed ENT referral if needed. [facility] Other Evaluation note 06-12-2022 Note Date & [...] water inside ear after shower may use hairspring vibrator on lowest cool setting to blow dry. Follow up with PCP or UC if no improvement in the next 2-3 days. Immediate eval for severe ear pain, severe headache, neck pain/stiffness, pain, erythema, or swelling behind the ear, fever, N/V, hearing loss, fever, or any other new or concerning symptoms. Patient verbalizes understanding and is agreeable to treatment plan [facility] Other History general Narrative - Reported Note [...] REPIAR 2017 Hospitalization History SEE SURGICAL HX [facility] Other Summary Purpose Family History No Family [...] section and content) DATE CREATED AUTHOR 02/19/2018 [facility] DATE CREATED AUTHOR AUTHOR'S ORGANIZ ATION 11/14/2018 [facility] DATE CREATED AUTHOR AUTHOR'S ORGANIZ ATION 09/17/2020 [facility] DATE CREATED AUTHOR AUTHOR'S ORGANIZ ATION 12/23/2020 [facility] DATE CREATED AUTHOR AUTHOR'S ORGANIZ ATION 10/21/2021 [facility] DATE CREATED AUTHOR AUTHOR'S ORGANIZ ATION 02/03/2023 [facility] REASON FOR VISIT (unrecogniz ed section and content) EAR PAINEar InfectionCHECK U P Care Teams (unrecognized sec tion and content) Newspaper Press Operator Apprentice Relationship Specialty Start Date End Date Luisa Ge APRN-PIT MANAGER [address] [place] [phone] AIR SHOVEL OPERATOR Pulmonary Medicine 06/02/20 Jamie Hardin MD [address] [place] [address] Physician General Surgery 06/02/20 Page Faulkner M.Ed., R.Keyana., L.D. [address] [address] Dietitian Nutrition 06/02/20 Rita Catherine MD [address] [place] [address] Physician Obstetrics/Gynecology 06/02/20 Rishabh Hi APRN-PIT MANAGER [address] [place] [id number] AIR SHOVEL OPERATOR Anesthesiology 06/02/20 Newspaper Press Operator Apprentice Relationship Specialty Start Date End Date Luisa Ge APRN-PIT MANAGER [address] [place] [phone] AIR SHOVEL OPERATOR Pulmonary Medicine 06/02/20 Jamie Hardin MD [address] [place] [address] Physician General Surgery 06/02/20 Page Faulkner M.Ed., R.D., [place] [address] Dietitian Nutrition 06/02/20 Rita Catherine MD [address] [place] [address] Physician Obstetrics/Gynecology 06/02/20 Rishabh Hi, SECURITY PROGRAM MANAGER-PIT MANAGER [address] [place] [address] AIR SHOVEL OPERATOR Anesthesiology 06/02/20 FOR RECORDS PERTAINING TO PATIENTS [...] BE BASED ON THE PRIMARY CLINICAL RECORDS. [facility] [employer] provides no warranty or guarantee of the accuracy or completeness of information in this document.
[2023-09-18 18:23] LABS: Erythrocyte Sedimentation Rate 31 mm/hr (<=20)
[2023-09-20 08:12] LABS: Rheumatoid Factor (RF) <10.0 IU/mL (<14.0)
[2023-09-20 12:08] LABS: Antinuclear Antibodies, IFA Positive (.)
[2023-09-20 15:10] LABS: Angiotensin-Converting Enzyme 27 U/L (14-82)
[2023-09-20 16:10] LABS: Anticardiolipin Ab,IgA,Qn <9 APL U/mL (0-11); Anticardiolipin Ab,IgG,Qn <9 GPL U/mL (0-14); Anticardiolipin Ab,IgM,Qn <9 MPL U/mL (0-12)
[2023-09-21 04:08] LABS: Antithrombin Activity 141 % (75-135); Lupus Reflex Interpretation Comment: (.); PTT-LA 35.5 sec (0.0-43.5); Protein C-Functional 146 % (73-180); Protein S-Functional 83 % (63-140); dRVVT 32.9 sec (0.0-47.0)
[2023-09-21 06:09] LABS: Beta-2 Glycoprotein I Ab, IgG <9 (0-20)
== END 2023-09-18 16:35 | disposition home or self-care (01) ==
LOC: LAB 16:35
PROVIDERS: PCP Family Medicine
DX: N96 Recurrent pregnancy loss (principal); N97.0 Female infertility associated with anovulation
CPT/HCPCS: 36415; 81291; 81400; 82164; 85300; 85303; 85306; 85307; 85613; 85652; 85732; 86038; 86146; 86147; 86148; 86430; 86431; 88262; 99999

== ENCOUNTER 2023-10-11 15:49 | Outpatient (OUT) | payer BC, SELFPAY ==
[2023-10-11 16:34] LABS: Estimated Average Glucose 97 mg/dL
[2023-10-11 17:10] LABS: Thyroid Stimulating Hormone 1.701 uIU/mL (0.358-3.740)
[2023-10-13 06:09] LABS: HBsAg Screen Negative (Negative); HCV Ab Non Reactive (Non Reactive); HIV Ab/p24 Ag Screen Non Reactive (Non Reactive); Hep B Core Ab, Tot Negative (Negative)
[2023-10-13 08:11] LABS: Prolactin 20.1 ng/mL (4.8-33.4)
[2023-10-13 11:12] LABS: Rapid Plasma Reagin, Quant Non Reactive titer (NonRea<1:1); Rubella Antibodies, IgG <0.90 index (Immune >0.99); Varicella-Zoster V Ab, IgG <135 index (Immune >165)
[2023-10-13 21:09] LABS: Neisseria gonorrhoeae, NAA Negative (Negative)
[2023-10-15 02:08] LABS: Anti-Mullerian Hormone (AMH) 2.41 ng/mL (.)
== END 2023-10-11 15:50 | disposition home or self-care (01) ==
LOC: LAB 15:51
PROVIDERS: PCP Family Medicine
DX: E28.9 Ovarian dysfunction, unspecified (principal); Z11.3 Encounter for screening for infections with a predominantly sexual mode of transmission
CPT/HCPCS: 36415; 81241; 82306; 82397; 83036; 84146; 84443; 85210; 86592; 86704; 86762; 86787; 86803; 86850; 86900; 86901; 87340; 87389; 87491; 87591

== ENCOUNTER 2024-01-01 08:20 | Outpatient (OUT) | payer BC, SELFPAY ==
[2024-01-01 14:43] LABS: HCG Quantitative <1 mIU/mL
--- OUTSIDE RECORDS SUMMARY | 2024-01-03 08:42 | XMS_ITS | CCD ---
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 Name Role Phone No Family Physician Unavailable Unavailable No Family Physician Unavailable Unavailable NO FAMILY DOCTOR, NO FAMILY DOCTOR Primary Care Unavailable YANIRA MARTINO Attending Unavailable Swathi DANIEL Referring Unavailab le PROVIDER, UNKNOWN Attending Unavailable PROVIDER, UNKNOWN Admitting Unavailable WILSON CASTRO Primary Care Unavailable Yolis James Unavailable Joo PACKER, Luisa Unavailable Lashawn MESSER, Jamie Unavailable Kaushik West, R.Keyana., L.D., Page Unavailable Florin MESSER, Rita Unavailable Sussy PACKER, Rishabh NAlexia Unavailable [phone] Jada Oliveros Unavailable Joo PACKER, Luisa Unavailable [phone] Lashawn MESSER, Jamie Unavailable Kaushik West, R.Keyana., L.D., Page Unavailable Florin MESSER, Rita Unavailable Sussy PACKER, Rishabh N. Unavailable ALVARO Hale, DR GOSS Attending Unavailable ALVARO ., DR GOSS Admitting Unavailable DR JADA OLIVEROS Primary Care Unavailable ALVARO ., DR GOSS Consulting Unavailable REQUEST, DR GARAY LISTED Primary Care Unavaila ble ALVARO ., DR GOSS Attending Unavailable [place], DR YANIRA Steele Consulting Unavailable ALVARO ., DR GOSS Admitting Unavailable ALVARO ., DR GOSS Consulting Unavailable ALVARO ., DR GOSS Admitting Unavailable ALVARO ., DR GOSS Attending Unavailable REQUEST, NONE LISTED Primary Care Unavaila ble ALVARO [...] Propensity to adverse reactions to drug (disorder) 9 [facility] Medications Current Medications Medication Drug [...] / neomycin 3.5 mg/ml / polymyxin b 67291 unt/ml otic solution (1 source) Aminoglycoside Antibacterial, [...] QUANT HCGon 01-17-2023 HCG QUANT <1 Normal [facility] Comment on above: Performed By: #### P REGQNT #### [facility] [address] [place] [address] Dr. Meghan Vital HCG RANGE SEE BELOW Normal [facility] Comment on above: Result Comment: 5-50 0.2-1 WEEK 50-500 1-2 WEEKS 100-5,000 2-3 WEEKS 500-10,000 3-4 WEEKS 1,000-50,000 4-5 WEEKS 10,000-100,000 5-6 WEEKS 15,000-200,000 6-8 WEEKS 10,000-100,000 2-3 MONTHS Performed By: #### P REGQNT #### [facility] [address] [place] [address] Dr. Meghan Vital PROGESTERONEon 01-10-2023 Progesterone 8.9 ng/mL Normal [facility] Comment on above: Result Comment: Foll icular phase 0.1 - 0.9 Luteal phase 1.8 - 23.9 Ovulation phase 0.1 - 12.0 First trimester 11.0 - 44.3 Second trimester 25.4 - 83.3 Third trimester 58.7 - 214.0 Postmenopausal 0.0 - 0.1 Performed By: #### H CGSUB #### [facility] [address] [place] [address] Dr. Meghan Vital PAP ACOG PANEL 2: 30 to 65on 11-30-2022 . . Normal [facility] Comment on above: Result Comment: Perf ormed at: WB Performed By: #### [id number] #### [facility] [address] [place] [address] Dr. Meghan Vital Age Gdln ACOG Testing 30-65 [facility] Comment on above: Performed By: #### [id number] #### [facility] [address] [place] [address] Dr. Meghan Vital DIAGNOSIS: Comment Normal [facility] Comment on above: Result Comment: NEGA TIVE FOR INTRAEPITHELIAL LESION OR MALIGNANCY. Performed at: WB Performed By: #### [id number] #### [facility] [address] [place] [address] Dr. Meghan Vital HPV Aptima Positive Abnormal Negative [facility] Comment on above: Result Comment: This nucleic acid amplification test detects fourteen high-risk HPV types (16,18,31,33,35,39,45,51,52,56,58,59,66,68) without differentiation. Performed at: =G Performed By: #### 4 [id number] #### [facility] [address] [place] [address] Dr. Meghan Vital HPV Genotype 16 Negative Normal Negative [facility] Comment on above: Performed By: #### 4 [id number] #### [facility] [address] [place] [address] Dr. Meghan Vital HPV Genotype 18,45 Negative Normal Negative [facility] Comment on above: Performed By: #### 4 [id number] #### [facility] [address] [place] [address] Dr. Meghan Vital HPV Genotype Reflex Comment Normal [facility] Comment on above: Result Comment: Aiyana iqbal, see HPV Genotype results. Performed at: WB Performed By: #### 4 [id number] #### [facility] [address] [place] [address] Dr. Meghan Vital Methodology: Comment Normal [facility] Comment on above: Result Comment: This liquid based ThinPrep(R) pap test was screened with the use of an image guided system. Performed at: WB Performed By: #### 4 [id number] #### [facility] [address] [place] [address] Dr. Meghan Vital Note: Comment Normal [facility] Comment on above: Result Comment: The Pap smear is a screening test designed to aid in the detection of premalignant and malignant conditions of the uterine cervix. It is not a diagnostic procedure and should not be used as the sole means of detecting cervical cancer. Both false-positive and false-negative reports do occur. . Performed at: WB Performed By: #### [id number] #### [facility] [address] [place] [address] Dr. Meghan Vital Performed by: Comment Normal [facility] Comment on above: Result Comment: Rahul Kincaid, Environmental Research Project Manager (ASCP) Performed at: WB Performed By: #### [id number] #### [facility] [address] [place] [address] Dr. Meghan Vital Specimen adequacy: Comment Normal [facility] Comment on above: Result Comment: Sati sfactory for evaluation. Endocervical and/or squamous metaplastic cells (endocervical component) are present. Performed at: WB Performed By: #### 4 [id number] #### [facility] [address] [address] [address] Meghan Vital ANTI-MULLERIAN HORMONEon Anti-Mullerian Hormone (AMH) 3.03 ng/mL Normal [facility] Comment on above: Result Comment: For assays employing antibodies, the possibility exists for interference by heterophile antibodies in the samples.1 1.Bailey Dickson Interferences in Immunoassays - still a threat. Clin. Chem. 2000; 46: 0867-3027. This test was developed and its performance characteristics determined by [employer]. It has not been cleared or approved by the Food and Drug Administration. Reference Range: Females 36 - 40y: 0.42 - 8.34 Median 1.69 AMH concentrations of >= 1.06 ng/mL is correlated with a better response to ovarian stimulation, produced more retrievable oocytes and higher odds of live according to Holland et al. Fertility and Sterility. 2010: 94:3672-5391. The current AMH test method correlates with [...] tumor. Performed By: #### H CGSUB #### [facility] [address] [address] [address] Meghan Vital CBC AUTO DIFFon 11-21-2022 BASO # 0.1 103/ul Normal 0.0-0.1 [facility] Comment on above: Performed By: #### H CGSUB #### [facility] [address] [address] [address] Meghan Vital Basophils/100 WBC (Bld) 0.8 % Normal 0.2-2.0 [facility] Comment on above: Performed By: #### H CGSUB #### [facility] [address] [place] [address] Dr. Meghan Vital EO # 0.2 103/ul Normal 0.0-0.7 [facility] Comment on above: Performed By: #### H CGSUB #### [facility] [address] [place] [address] Dr. Meghan Vital Eosinophils/100 WBC (Bld) 2.3 % Normal 0.9-7.0 [facility] Comment on above: Performed By: #### H CGSUB #### [facility] [address] [place] [address] Dr. Meghan Vital Erythrocyte distribution width (RBC) [Ratio] 13.3 % Normal 11.0-15.0 [facility] Comment on above: Performed By: #### H CGSUB #### [facility] [address] [place] [address] Dr. Meghan Vital Hematocrit (Bld) [Volume fraction] 42.4 % Normal 36.0-48.0 [facility] Comment on above: Performed By: #### H CGSUB #### [facility] [address] [place] [address] Dr. Meghan Vital Hemoglobin (Bld) [Mass/Vol] 13.6 g/dL Normal 12.0-16.0 [facility] Comment on above: Performed By: #### H CGSUB #### [facility] [address] [place] [address] Dr. Meghan Vital IG # 0.01 10e3/ul Normal 0.00-0.03 [facility] Comment on above: Performed By: #### H CGSUB #### [facility] [address] [place] [address] Dr. Meghan Vital IG % 0.1 % Normal 0.0-0.5 [facility] Comment on above: Performed By: #### H CGSUB #### [facility] [address] [place] [address] Dr. Meghan Vital LYMPH # 3.9 103/ul Critically high 1.2-3.8 [facility] Comment on above: Performed By: #### H CGSUB #### [facility] [address] [place] [address] Dr. Meghan Vital Lymphocytes/100 WBC (Bld) 42.7 % Normal 20.5-60.0 [facility] Comment on above: Performed By: #### H CGSUB #### [facility] [address] [place] [address] Dr. Meghan Vital MANUAL DIFF REQ NO Normal [facility] Comment on above: Performed By: #### H CGSUB #### [facility] [address] [place] [address] Dr. Meghan Vital MCH (RBC) [Entitic mass] 27.4 pg Normal 26.7-34.0 [facility] Comment on above: Performed By: #### H CGSUB #### [facility] [address] [place] [address] Dr. Meghan Vital MCHC (RBC) [Mass/Vol] 32.1 g/dL Normal 29.9-35.2 [facility] Comment on above: Performed By: #### H CGSUB #### [facility] [address] [place] [address] Dr. Meghan Vital MCV (RBC) [Entitic vol] 85.3 fL Normal 81.0-99.0 [facility] Comment on above: Performed By: #### H CGSUB #### [facility] [address] [place] [address] Dr. Meghan Vital MONO # 0.6 103/ul Normal 0.3-0.8 [facility] Comment on above: Performed By: #### H CGSUB #### [facility] [address] [place] [address] Dr. Meghan Vital Monocytes/100 WBC (Bld) 6.1 % Normal 1.7-12.0 [facility] Comment on above: Performed By: #### H CGSUB #### [facility] [address] [place] [address] Dr. Meghan Vital NEUT # 4.3 103/ul Normal 1.4-6.5 [facility] Comment on above: Performed By: #### H CGSUB #### [facility] [address] [place] [address] Dr. Meghan Vital Neutrophils/100 WBC (Bld) 48.0 % Normal 43.0-75.0 [facility] Comment on above: Performed By: #### H CGSUB #### [facility] [address] [place] [address] Dr. Meghan Vital Platelet mean volume (Bld) [Entitic vol] 11.5 fL Normal 9.5-13.5 [facility] Comment on above: Performed By: #### H CGSUB #### [facility] [address] [place] [address] Dr. Meghan Vital PLT 251 103/ul Normal 150-450 [facility] Comment on above: Performed By: #### H CGSUB #### [facility] [address] [place] [address] Dr. Meghan Vital RBC 4.97 106/ul Normal 4.20-5.40 [facility] Comment on above: Performed By: #### H CGSUB #### [facility] [address] [place] [address] Dr. Meghan Vital WBC 9.0 103/ul Normal 4.0-11.0 [facility] Comment on above: Performed By: #### H CGSUB #### [facility] [address] [place] [address] Dr. Meghan Vital FREE T4on 11-21-2022 Free T4 [Mass/Vol] 1.03 ng/dL Normal 0.76-1.46 [facility] Comment on above: Performed By: #### F T4 #### [facility] [address] [place] [address] Dr. Meghan Vital GLYCOHEMOGLOBIN A1Con 2022 ADA RECOMMENDATION SEE BELOW Normal [facility] Comment on above: Result Comment: ADA RECOMMENDED LIMIT 4.0 - 6.0 ADA THERAPEUTIC TARGET < 7.0 ACTION SUGGESTED > 7.0 Performed By: #### H CGSUB #### [facility] [address] [place] [address] Dr. Meghan Vital Glucose [Mass/Vol] 97 mg/dL Normal [facility] Comment on above: Performed By: #### H CGSUB #### [facility] [address] [place] [address] Dr. Meghan Vital HbA1c (Bld) [Mass fraction] 5.0 % Normal 4.5-6.2 [facility] Comment on above: Performed By: #### H CGSUB #### [facility] [address] [place] [address] Dr. Meghan Vital TSHon 11-21-2022 TSH 1.636 uIU/mL Normal 0.358-3.74 0 [facility] Comment on above: Performed By: #### H CGSUB #### [facility] [address] [place] [address] Dr. Meghan Vital PROGESTERONEon 10-12-2022 Progesterone 6.8 ng/mL Normal [facility] Comment on above: Result Comment: Foll icular phase 0.1 - 0.9 Luteal phase 1.8 - 23.9 Ovulation phase 0.1 - 12.0 First trimester 11.0 - 44.3 Second trimester 25.4 - 83.3 Third trimester 58.7 - 214.0 Postmenopausal 0.0 - 0.1 Performed By: #### H CGSUB #### [facility] [address] [place] [address] Dr. Megahn Vital CBC AUTO DIFFon 09-23-2022 BASO # 0.1 103/ul Normal 0.0-0.1 [facility] Comment on above: Performed By: #### C BC #### [facility] [address] [place] [address] Dr. Meghan Vital Basophils/100 WBC (Bld) 1.2 % Normal 0.2-2.0 [facility] Comment on above: Performed By: #### C BC #### [facility] [address] [place] [address] Dr. Meghan Vital EO # 0.2 103/ul Normal 0.0-0.7 [facility] Comment on above: Performed By: #### C BC #### [facility] [address] [place] [address] Dr. Meghan Vital Eosinophils/100 WBC (Bld) 2.4 % Normal 0.9-7.0 [facility] Comment on above: Performed By: #### C BC #### [facility] [address] [place] [address] Dr. Meghan Vital Erythrocyte distribution width (RBC) [Ratio] 13.1 % Normal 11.0-15.0 [facility] Comment on above: Performed By: #### C BC #### [facility] [address] [place] [address] Dr. Meghan Vital Hematocrit (Bld) [Volume fraction] 38.1 % Normal 36.0-48.0 [facility] Comment on above: Performed By: #### C BC #### [facility] [address] [place] [address] Dr. Meghan Vital Hemoglobin (Bld) [Mass/Vol] 13.4 g/dL Normal 12.0-16.0 [facility] Comment on above: Performed By: #### C BC #### [facility] [address] [place] [address] Dr. Meghan Vital IG # 0.01 10e3/ul Normal 0.00-0.03 [facility] Comment on above: Performed By: #### C BC #### [facility] [address] [place] [address] Dr. Meghan Vital IG % 0.1 % Normal 0.0-0.5 [facility] Comment on above: Performed By: #### C BC #### [facility] [address] [place] [address] Dr. Meghan Vital LYMPH # 3.4 103/ul Normal 1.2-3.8 [facility] Comment on above: Performed By: #### C BC #### [facility] [address] [place] [address] Dr. Meghan Vital Lymphocytes/100 WBC (Bld) 45.2 % Normal 20.5-60.0 [facility] Comment on above: Performed By: #### C BC #### [facility] [address] [place] [address] Dr. Meghan Vital MANUAL DIFF REQ NO Normal [facility] Comment on above: Performed By: #### C BC #### [facility] [address] [place] [address] Dr. Meghan Vital MCH (RBC) [Entitic mass] 27.8 pg Normal 26.7-34.0 [facility] Comment on above: Performed By: #### C BC #### [facility] [address] [place] [address] Dr. Meghan Vital MCHC (RBC) [Mass/Vol] 35.2 g/dL Normal 29.9-35.2 [facility] Comment on above: Performed By: #### C BC #### [facility] [address] [place] [address] Dr. Meghan Vital MCV (RBC) [Entitic vol] 79.0 fL Critically low 81.0-99.0 [facility] Comment on above: Performed By: #### C BC #### [facility] [address] [place] [address] Dr. Meghan Vital MONO # 0.4 103/ul Normal 0.3-0.8 [facility] Comment on above: Performed By: #### C BC #### [facility] [address] [place] [address] Dr. Meghan Vital Monocytes/100 WBC (Bld) 5.3 % Normal 1.7-12.0 [facility] Comment on above: Performed By: #### C BC #### [facility] [address] [place] [address] Dr. Meghan Vital NEUT # 3.4 103/ul Normal 1.4-6.5 [facility] Comment on above: Performed By: #### C BC #### [facility] [address] [place] [address] Dr. Meghan Vital Neutrophils/100 WBC (Bld) 45.8 % Normal 43.0-75.0 [facility] Comment on above: Performed By: #### C BC #### [facility] [address] [place] [address] Dr. eMghan Vital Platelet mean volume (Bld) [Entitic vol] 11.4 fL Normal 9.5-13.5 [facility] Comment on above: Performed By: #### C BC #### [facility] [address] [place] [address] Dr. Meghan Vital PLT 280 103/ul Normal 150-450 [facility] Comment on above: Performed By: #### C BC #### [facility] [address] [place] [address] Dr. Meghan Vital RBC 4.82 106/ul Normal 4.20-5.40 [facility] Comment on above: Performed By: #### C BC #### [facility] [address] [place] [address] Dr. Meghan Vital WBC 7.5 103/ul Normal 4.0-11.0 [facility] Comment on above: Performed By: #### C BC #### [facility] [address] [place] [address] Dr. Meghan Vital FREE T4on 09-23-2022 Free T4 [Mass/Vol] 1.17 ng/dL Normal 0.76-1.46 [facility] Comment on above: Performed By: #### H CGSUB #### [facility] [address] [place] [address] Dr. Meghan Vital GLYCOHEMOGLOBIN A1Con 2022 ADA RECOMMENDATION SEE BELOW Normal [facility] Comment on above: Result Comment: ADA RECOMMENDED LIMIT 4.0 - 6.0 ADA THERAPEUTIC TARGET < 7.0 ACTION SUGGESTED > 7.0 Performed By: #### A 1C #### [facility] [address] [place] [address] Dr. Meghan Vital Glucose [Mass/Vol] 100 mg/dL Normal [facility] Comment on above: Performed By: #### A 1C #### [facility] [address] [place] [address] Dr. Meghan Vital HbA1c (Bld) [Mass fraction] 5.1 % Normal 4.5-6.2 [facility] Comment on above: Performed By: #### A 1C #### [facility] [address] [place] [address] Dr. Meghan Vital TSHon 09-23-2022 TSH 1.235 uIU/mL Normal 0.358-3.74 0 [facility] Comment on above: Performed By: #### T SH #### [facility] [address] [place] [address] Dr. Meghan Vital PREG QUANT HCGon 07-12-2022 HCG QUANT 1 mIU/mL Normal [facility] Comment on above: Performed By: #### P REGQNT #### [facility] [address] [place] [address] Dr. Meghan Vital HCG RANGE SEE BELOW Normal [facility] Comment on above: Result Comment: 5-50 0.2-1 WEEK 50-500 1-2 WEEKS 100-5,000 2-3 WEEKS 500-10,000 3-4 WEEKS 1,000-50,000 4-5 WEEKS 10,000-100,000 5-6 WEEKS 15,000-200,000 6-8 WEEKS 10,000-100,000 2-3 MONTHS Performed By: #### P REGQNT #### [facility] [address] [place] [address] Dr. Meghan Vital XR HYSTEROSALPINGOGRAMon XR HYSTEROSALPINGOGRAM [...] by: YADIRA BAKER Date: 2022-07-12 12:12 Normal [facility] PROGESTERONEon 06-30-2022 Progesterone 20.9 ng/mL Normal [facility] Comment on above: Result Comment: Foll icular phase 0.1 - 0.9 Luteal phase 1.8 - 23.9 Ovulation phase 0.1 - 12.0 First trimester 11.0 - 44.3 Second trimester 25.4 - 83.3 Third trimester 58.7 - 214.0 Postmenopausal 0.0 - 0.1 Performed By: #### P PHIL #### [facility] [address] [address] [address] Meghan Vital HCG-BETA SUBUNIT QUANTon hCG,Beta Subunit,Qnt,Serum <1 Normal [facility] Comment on above: Result Comment: Fema le (Non-) 0 - 5 (Postmenopausal) 0 - 8 . Female () Weeks of Gestation 3 6 - 71 4 10 - 750 5 217 - 7138 6 158 - 15233 7 3697 -134428 8 93146 -623101 9 35892 -741107 10 76745 -788871 12 64441 -864250 14 66990 - 60458 15 84108 - 33644 16 9064 - 75793 17 8195 - 22166 18 8099 - 07431 Jeremy ECLIA methodology Performed By: #### H CGSUB #### [facility] [address] [place] [address] Dr. Meghan Vital HCG-BETA SUBUNIT QUANTon hCG,Beta Subunit,Qnt,Serum <1 Normal [facility] Comment on above: Result Comment: Fema le (Non-) 0 - 5 (Postmenopausal) 0 - 8 . Female () Weeks of Gestation 3 6 - 71 4 10 - 750 5 217 - 7138 6 158 - 38000 7 3697 -139511 8 72213 -244993 9 52941 -004626 10 66240 -427949 12 98647 -804646 14 27119 - 83753 15 18300 - 69581 16 9040 - 51206 17 8175 - 19032 18 8099 - 41174 Jeremy ECLIA methodology Performed By: #### H CGSUB #### [facility] [address] [place] [address] Dr. Meghan Vital PROGESTERONEon 02-26-2022 Progesterone <0.1 Normal [facility] Comment on above: Result Comment: Foll icular phase 0.1 - 0.9 Luteal phase 1.8 - 23.9 Ovulation phase 0.1 - 12.0 First trimester 11.0 - 44.3 Second trimester 25.4 - 83.3 Third trimester 58.7 - 214.0 Postmenopausal 0.0 - 0.1 Performed By: #### P PHIL #### [facility] [address] [address] [address] Meghan Vital US PELVIS AND TRANSVAGon [...] by: YANIRA MICHAEL Date: 2022-02-24 16:57 Normal [facility] Ambulatory Clinical Summaryo n 12-22-2020 Ambulatory Clinical Summary {[id number] Normal [facility] Family Medicine Office/Clini c Noteon 12-22-2020 [...] documented 3008F Office Visit Level 2 Est 42095 2. Tobacco use (Z72.0: Tobacco use) We [...] smoker 1034F Office Visit Level 2 Est 55263 3. Hordeolum externum right lower eyelid (H00.012: Hordeolum externum right lower eyelid) Will treat with bacitracin ointment. May use warm compresses 3-4 x day. FU with PCP if not gradually improving over next 7 days, sooner if significantly spreading erythema, edema, warmth, fever. Patient verbalized understanding of tx plan Ordered: Office Visit Level 2 Est 59780 Orders: erythromycin ophthalmic, 0.5 in, OPTH, QID [...] 11/17/2020 Family History Family history is negative [facility] Comment on above: Result Comment: Elec tronically Signed By: Ara TURNER CNP\.br\Date and Time Signed: 12/22/20 16:05 EDT Patient Educationon 12-23-19 Patient Education Pulmonary Medicine Health Risks of [...] methods. Where to find more information ? [employer]: www.lung.org ? [employer]: www.cancer.org Summary ? Smoking cigarettes [...] 09/21/2005 Document Revised: 11/15/2018 Document Reviewed: 08/18/2017 [employer] Patient Education ? 2019 [employer] [facility] Provider Letteron 12-22-2020 Provider Letter (Inserted Image. Mary ble to display) December 22, 2020 FARTUN RODRÍGUEZ [address] [place] [phone] FARTUN RODRÍGUEZ 1985 To Whom It May Concern, Please excuse above patient from work. Date of Illness:12/22/2020 May Return to Work On:12/23/2020 Comments: _ Patient was seen in office today, she may return at the date listed above Sincerely, [facility] [address] [place] [id number] [facility] Ambulatory Clinical Summaryo n 11-17-2020 Ambulatory Clinical Summary {[id number]}CD:61 4368 [facility] Family Medicine Office/Clini c Noteon 11-17-2020 Family Medicine Office/Clinic Note Chief Complaint [employer] cough HPI Staff Patient presents with cough [...] wheezing, 18 gram, Refill(s) 0, [facility], [address], cm, 11/17/20 16:59:00 EDT, Height/Length Dosing, 59, kg, 11/17/20 16:59:00 EDT, Weight Dosing azithromycin, = 1 packet(s), Oral, As Directed, as directed on package labeling, X 5 day(s), # 6 tab(s), Refills(s) 0, Pharmacy: [facility], [address], cm, 11/17/20 16:59:00 EDT, Height/Length Dosing, 59, kg, 11/17/20 16:59:00 EDT, Weight Dosing benzonatate, 200 mg = 1 cap(s), Oral, TID, X 10 day(s), # 30 cap(s), Refills(s) 0, Pharmacy: [facility], [address], cm, 11/17/20 [...] 30 days Tobacco Use:. Cigarettes, Yes, 11/17/2020 [facility] Comment on above: Result Comment: Elec tronically Signed By: MITUL BHAGAT, LASHANDA W\.br\Date and Time Signed: 11/17/20 17:56 EDT Patient Educationon 11-18-19 21 Patient Education Infectious Disease Upper Respiratory Infection, [...] to help relieve symptoms, such as: ? Dqxt-edu-xyxtnlm cold medicines. ? Cough suppressants. Coughing is [...] other clear broths. General instructions ? Take ontw-dja-xjfyqmd and prescription medicines only as told by [...] and water are not available, use hand recruitment coordinator. ? Avoid touching your mouth, face, eyes, [...] common infecti (more content not included)... Normal [facility] Provider Letteron 11-17-2020 Provider Letter (Inserted Image. Mary ble to display) November 17, 2020 FARTUN RODRÍGUEZ [address] [place] [phone] FARTUN RODRÍGUEZ 1985 To Whom It May Concern, Please excuse above patient from work. Date of Illness: From: 11/17/2020 To: 11/18/2020 May Return to Work On:11/19/2020 Comments: Patient above was seen at [facility] on 11/17/2020. Sincerely, [facility] [address] [place] [address] Normal [facility] Provider Letteron 09-22-2020 Provider Letter (Inserted Image. Mary ble to display) September 22, 2020 FARTUN RODRÍGUEZ [address] [place] [phone] FARTUN RODRÍGUEZ 1985 To Whom It May Concern, Please excuse above patient from work. Date of Illness: From: 09/22/2020 May Return to Work On:09/23/2020 Comments: The above patient may return back to work on the above date. Sincerely, [facility] [address] [place] [address] [facility] SURGICAL PATH REPORTon 07-31 SURGICAL PATH REPORT [facility] Department of Pathology [address] [place] [phone] Name: FARTUN RODRÍGUEZ : 1985 Financial [id number] Number: Gender: Female Location: [facility] Admit 34 years Attending ANA PAULA JOHN Age: Provider: Ordering ANA PAULA JOHN Provider: Consulting: Surgical Pathology Report ACCESSION: COLLECTED DATE/TIME: RECEIVED DATE/TIME: PATHOLOGIST: [id number] 07/30/2020 13:19 EST 07/30/2020 13:19 EST SHADE MULLER MD Final Diagnosis Report for [facility] [place] [employer]: - [place]. [...] cm. There are no grossly identifiable parts. Echo V[employer] Tech sections are submitted in three cassettes. MP/ekaterina 07/30/2020 Tissue pathology report for: [facility], [address] [place] [address]; Print Date/ 07/31/2020 15:05 EST Number: Time: [facility] Department of Pathology [address] [place] [phone] Name: FARTUN RODRÍGUEZ : 1985 Financial [id number] Number: Gender: Female Location: [facility] Admit 34 years Attending ANA PAULA JOHN Age: Provider: ANA PAULA Valdez Provider: Consulting: Surgical Pathology Report ACCESSION: COLLECTED DATE/TIME: RECEIVED DATE/TIME: PATHOLOGIST: [id number] 07/30/2020 13:19 EST 07/30/2020 13:19 EST YOHANA MESSER, SHADE Gross Description PATHOLOGY SERVICES PROVIDED BY [facility] (CLIA #[id number]) in cooperation with [facility] at [address] [place] [address] (CLIA #[id number]) Codes CPT CODE: 18979 Print Date07/31/2020 15:05 EST Number: Time: Normal [facility] Comment on above: Performed By: #### [id number] #### [facility] Services [address] [place] [address] Retirement Village Manager: Shade Muller MD Consenton 05-29-2020 Consent [id number]:127 Normal [facility] Registrationon 05-29-2020 Registration [id number]:127 [facility] Influenza A,Bon 11-08-2018 Influenza A, Rapid Ag Negative Normal Negative [facility] Comment on above: Performed By: #### [id number] #### [facility] [address] [place] [address] Influenza B, Rapid Ag Negative Normal Negative [facility] Comment on above: Performed By: #### 5 [id number] #### [facility] [address] [place] [address] Urinalysis with Reflex Cultu reon 11-08-2018 Appearance Nom (U) Clear Normal Clear [facility] Comment on above: Performed By: #### U ARFX #### [facility] [address] [place] [address] Ascorbic Acid Negative Normal Negative [facility] Comment on above: Performed By: #### U ARFX #### [facility] [address] [place] [address] Automated Urine Microscopy Not indicated Normal [facility] Comment on above: Performed By: #### U ARFX #### [facility] [address] [place] [address] Bilirubin mass conc Negative Normal Negative [facility] Comment on above: Performed By: #### U ARFX #### [facility] [address] [place] [address] Blood Negative Normal Negative [facility] Comment on above: Performed By: #### U ARFX #### [facility] [address] [place] [address] Color Nom (U) Yellow Normal [facility] Comment on above: Performed By: #### U ARFX #### [facility] [address] [place] [address] Glucose mass conc 50 mg/dL Abnormal Negative [facility] Comment on above: Performed By: #### U ARFX #### [facility] [address] [place] [address] Ketones Ql (U) Negative Normal Negative [facility] Comment on above: Performed By: #### U ARFX #### [facility] [address] [place] [address] Leukocytes Esterase Negative Normal Negative [facility] Comment on above: Performed By: #### U ARFX #### [facility] [address] [place] [address] Nitrite Ql (U) Negative Normal Negative [facility] Comment on above: Performed By: #### U ARFX #### [facility] [address] [place] [address] pH (Bld) 5.0 Normal 5.0-9.0 [facility] Comment on above: Performed By: #### U ARFX #### [facility] [address] [place] [address] Protein mass conc (U) Negative Normal Negative [facility] Comment on above: Performed By: #### U ARFX #### [facility] [address] [place] [address] Specific gravity Relative Density (U) 1.026 Normal 1.003-1.03 5 [facility] Comment on above: Performed By: #### U ARFX #### [facility] [address] [place] [address] Urobilinogen Qn (U) <2.0 Normal Negative [facility] Comment on above: Result Comment: Due to a manufacturing issue, low positive urobilinogen results may be falsely positive. Correlate with urine bilirubin and additional clinical/laboratory findings to assess the risk of hemolytic anemia or liver disease. If clinically indicated, repeat testing with an alternate method is available by contacting the laboratory within 24 hours. Performed By: #### U ARFX #### [facility] [address] [place] [address] STREP GROUP A AG QUALon 08-29 STREP GROUP A AG QUAL STREP GROUP A AG Q UAL GROUP A STREP NEGATIVE FOR STREPTOCOCCUS GROUP A ANTIGEN THROAT CULTURE: REFERRED TO [facility] FOR CULTURE CONFIRMATION CULTURE RESULT: CULTURE NEGATIVE FOR BETA STREP GROUP A Normal [facility] Comment on above: Performed By: #### M STREPA ####[facility] [address] [place] [address] ED Provider Reporton 018 ED Provider Report [place], [place] [address]Patient Name: FARTUN RODRÍGUEZ : [birth year]Acct #: [id number] Unit #: [id number] ER Arrival Date: 09/21/17 ER Physician: Yoshi [...] illicit drug usePast Social HistorySmoking Status:FORMER SMOKERTobacco UseCIGARETTESPacks/Ssw4Mibt :LESS THAN 1 YEAR AGOReview of SystemsReview [...] Resp B/P B/P Pulse O2 O2 Flow CqI2Umyp Ox Delivery Rate01/25 1712 36.5 83 18 [...] to follow-up with PCP.Disposition DecisionDischargeDispositio n Date09/21/17Decision [id number] obiologyDate/Time Procedure - StatusSource Hklfsp70/25 1745 Group A Streptococcus Screen (BETHANY) - [...] Cali Gregory P. DO 09/22/17 1146 Normal [facility] Vital Signs Date Time Vital Sign Value Performing Clinician Facility 05-31-2023 09:00-0400 Body height 162.56 cm Jada Oliveros Other [facility] Other 05-31-2023 09:00-0400 Body mass index (BMI) [Ratio] 24.54 kg/m2 Jada Oliveros Other [facility] Other 05-31-2023 09:00-0400 Body weight 64.86 kg Jada Oliveros Other [facility] Other 05-31-2023 09:00-0400 Diastolic blood pressure 65 mm[Hg] Jada Oliveros Other [facility] Other 05-31-2023 09:00-0400 Systolic blood pressure 98 mm[Hg] Jada Oliveros Other [facility] Other 11-08-2022 16:15-0400 Body height 162.56 cm Jada Oliveros Other [facility] Other 11-08-2022 16:15-0400 Body mass index (BMI) [Ratio] 25.4 kg/m2 Jada Oliveros Other [facility] Other 11-08-2022 16:15-0400 Body temperature 97.4 [degF] Jada Oliveros Other [facility] Other 11-08-2022 16:15-0400 Body weight 67.13 kg Jada Oliveros Other [facility] Other 11-08-2022 16:15-0400 Diastolic blood pressure 74 mm[Hg] Jada Oliveros Other [facility] Other 11-08-2022 16:15-0400 SaO2% (BldA) [Mass fraction] 99 % Jada Oliveros Other [facility] Other 11-08-2022 16:15-0400 Systolic blood pressure 120 mm[Hg] Jada Oliveros Other [facility] Other 06-12-2022 12:15-0400 Body height 162.56 cm Yolis James Other [facility] Other 06-12-2022 12:15-0400 Body mass index (BMI) [Ratio] 25.74 kg/m2 Yolis James Other [facility] Other 06-12-2022 12:15-0400 Body temperature 98.1 [degF] Yolis James Other [facility] Other 06-12-2022 12:15-0400 Body weight 68.04 kg Yolis James Other [facility] Other 06-12-2022 12:15-0400 Diastolic blood pressure 61 mm[Hg] Yolis James Other [facility] Other 06-12-2022 12:15-0400 Respiratory rate 18 /min Yolis James Other [facility] Other 06-12-2022 12:15-0400 SaO2% (BldA) [Mass fraction] 100 % Yolis James Other [facility] Other 06-12-2022 12:15-0400 Systolic blood pressure 108 mm[Hg] Yolis James Other [facility] Other Encounters Encounter Date Encounter Type Care Provider Facility Start: 05-31-2023 End: 05-31-2023 ambulatory Jada Oliveros Other [facility] Other Start: 05-31-2023 Office outpatient visit 15 minutes Jada Oliveros [facility] Start: 01-17-2023 End: 01-25-[address] ANA PAULA JOHN . Facility: Start: 01-09-2023 End: 01-10-[address] ANA PAULA JOHN . Facility:[facility] Start: 11-26-2022 Letter encounter Luisa Ge APRN-TECHNICAL SALES SUPPORT MANAGER Work Phone: [facility] Start: 11-21-2022 End: 11-21-[address] ANA PAULA JOHN . Facility:[facility] Start: 11-21-2022 End: 11-22-[address] ANA PAULA JOHN . Facility:[facility] Start: 11-08-2022 End: 11-08-2022 ambulatory Jada Oliveros Other [facility] Other Start: 11-08-2022 Office outpatient visit 15 minutes Jada Oliveros [facility] Start: 10-11-2022 End: 10-12-[address] ANA PAULA JOHN . Facility:[facility] Start: 09-23-2022 End: 09-24-[address] ANA PAULA JOHN . Facility:[facility] Start: 09-04-2022 Letter encounter Luisa Ge APRN-TECHNICAL SALES SUPPORT MANAGER Work Phone: [facility] Start: 07-12-2022 End: 07-12-[address] ANA PAULA JOHN . Facility:[facility] Start: 06-29-2022 End: 06-30-[address] ANA PAULA JOHN . Facility:[facility] Start: 06-12-2022 End: 06-12-2022 ambulatory Yolis James Other [facility] Other Start: 06-12-2022 Office outpatient ne w 20 minutes Yolis James [facility] Start: 05-05-[address] ANA PAULA JOHN . Facili ty:[facility] Start: 04-27-2022 End: 04-28-[address] ANA PAULA JOHN . Facility:[facility] Start: 03-23-2022 End: 03-24-[address] ANA PAULA JOHN . Facility:[facility] Start: 02-25-2022 End: 02-26-[address] ANA PAULA JOHN . Facility:[facility] Start: 02-24-2022 End: 02-25-[address] NONE LISTED REQUEST Facility: Start: 05-11-2020 ambulatory [facility] Start: 11-07-2018 End: 11-08-2018 Emergency department patient visit NO FAMILY DOCTOR NO FAMILY DOCTOR Facility:[facility] Start: 09-21-2017 Emergency department patient visit No Family Physician Facility:[facility] Procedures Date Procedure Procedure Detail Performing Clinician Start: 07-08-2019 Microscopic observat ion [Identifier] in Cervix by Cyto stain Luisa Ge JETTING MACHINE OPERATOR-TECHNICAL SALES SUPPORT MANAGER Work Phone: Plan of Treatment Date Care Activity Detail Author Start: 2036 Shingles (RZV) Vacci ne (1 of 2) Shingles (RZV) Vaccine (1 of 2) [facility] Start: 06-26-2023 Tetanus vaccination Tetanus (T d or Tdap) Booster [facility] Start: 07-08-2022 Screening for malign ant neoplasm of cervix Pap Smear [facility] Start: 05-28-2022 Influenza vaccination Influenza Vacc ine (#1) [facility] Start: 02-23-1987 COVID-19 Vaccine (#1) COVID-19 Vacci ne (#1) [facility] Start: 1985 Screening for malign ant neoplasm of breast Mammography shared decision making (35 through 39 years) [facility] Immunizations Immunization Date Immunization Notes Care Provider Ubaldo araujo 10-23-2013 tuberculin skin test ; purified protein derivative solution, intradermal Luisa Ge JETTING MACHINE OPERATOR-TECHNICAL SALES SUPPORT MANAGER Work Phone: [facility] 06-26-2013 tetanus toxoid, redu thalia diphtheria toxoid, and acellular pertussis vaccine, adsorbed Luisa Ross JETTING MACHINE OPERATOR-TECHNICAL SALES SUPPORT MANAGER Work Phone: [facility] 05-08-2013 human papilloma viru s vaccine, quadrivalent Luisa Ge JETTING MACHINE OPERATOR-TECHNICAL SALES SUPPORT MANAGER Work Phone: [facility] 01-10-2013 human papilloma viru s vaccine, quadrivalent Luisa Ross JETTING MACHINE OPERATOR-TECHNICAL SALES SUPPORT MANAGER Work Phone: [facility] 11-15-2012 human papilloma viru s vaccine, quadrivalent Luisa Joo JETTING MACHINE OPERATOR-TECHNICAL SALES SUPPORT MANAGER Work Phone: [facility] 10-16-2010 tetanus toxoid, redu thalia diphtheria toxoid, and acellular pertussis vaccine, adsorbed Luisa Ge JETTING MACHINE OPERATOR-[facility] Work Phone: [facility] Payers Date Payer Category Payer Medicaid [id number] 1985 Unknown [id number] 2.16.8 [id number] 1985 Unknown [id number] 2.16. [id number] 1985 Unknown [id number] 2.16.84 0.1.118556.3.579.2.593 1985 Unknown [id number] 2.16.84 0.1.788359.3.579.2.593 1985 Unknown [id number] 2.16.84 0.1.917262.3.579.2.593 1985 Unknown [id number] 2.16.84 0.1.284508.3.579.2.593 1985 Unknown [id number] 2.16.84 0.1.269102.3.579.2.593 1985 Unknown [id number] 2.16.84 0.1.282313.3.579.2.593 1985 Unknown [id number] 2.16.84 0.1.663160.3.579.2.593 1985 Unknown [id number] 2.16.84 0.1.123786.3.579.2.593 1985 Unknown [id number] 2.16.84 0.1.103600.3.579.2.593 1986 Unknown [id number] 2.16.84 0.1.914987.3.579.2.593 1986 Unknown [id number] 2.16.84 0.1.345906.3.579.2.593 1986 Unknown [id number] 2.16.84 0.1.106410.3.579.2.593 1985 Unknown [id number] 2.16.84 0.1.834255.3.579.2.593 1958 Medicaid [id number] 1958 Medicaid [id number] 2. [id number] [place] [address] [id number] Social History Date Type Detail Facility Sex Assigned At [facility] Other Start: 10-17-2017 Tobacco smoking stat [facility] Ex-smoker [facility] End: 03-28-2017 History of [...] of medicated shampoo. Call if no improvement. [facility] Other Evaluation note 11-08-2022 Note Date & Type Note Facility 11-08-2022 Evaluation note Encounter Date Diagnosis Assessment Notes Oct, Chronic eczematous otitis externa of both ears (ICD-10 - H60.8X3) Discussed treatment. Will add drop with steroid component. Discussed proper hearing protection - possibly ear muff style. Also discussed ENT referral if needed. [facility] Other Evaluation note 06-12-2022 Note Date & [...] water inside ear after shower may use chairman ceo on lowest cool setting to blow dry. Follow up with PCP or UC if no improvement in the next 2-3 days. Immediate eval for severe ear pain, severe headache, neck pain/stiffness, pain, erythema, or swelling behind the ear, fever, N/V, hearing loss, fever, or any other new or concerning symptoms. Patient verbalizes understanding and is agreeable to treatment plan [facility] Other History general Narrative - Reported Note [...] REPIAR 2017 Hospitalization History SEE SURGICAL HX [facility] Other Summary Purpose Family History No Family [...] section and content) DATE CREATED AUTHOR 02/19/2018 [facility] DATE CREATED AUTHOR AUTHOR'S ORGANIZ ATION 11/14/2018 [facility] DATE CREATED AUTHOR AUTHOR'S ORGANIZ ATION 09/17/2020 [facility] DATE CREATED AUTHOR AUTHOR'S ORGANIZ ATION 12/23/2020 [facility] DATE CREATED AUTHOR AUTHOR'S ORGANIZ ATION 10/21/2021 [facility] DATE CREATED AUTHOR AUTHOR'S ORGANIZ ATION 02/03/2023 [facility] REASON FOR VISIT (unrecogniz ed section and content) EAR PAINEar InfectionCHECK U P Care Teams (unrecognized sec tion and content) Head End Desizing Machine Operator Relationship Specialty Start Date End Date Luisa Ge APRN-TECHNICAL SALES SUPPORT MANAGER [address] [place] [phone] TAPE CONTROL SKIN OR SPAR MILL OPERATOR Pulmonary Medicine 06/02/20 Jamie Hardin MD [address] [place] [phone] Physician General Surgery 06/02/20 Page Faulkner M.Ed., R.D., L.D. [address] [address] Dietitian Nutrition 06/02/20 Rita Catherine MD [address] [place] [address] [place] [address] Physician Obstetrics/Gynecology 06/02/20 Rishabh Hi APRN-TECHNICAL SALES SUPPORT MANAGER [address] [place] [address] TAPE CONTROL SKIN OR SPAR MILL OPERATOR Anesthesiology 06/02/20 Head End Desizing Machine Operator Relationship Specialty Start Date End Date Luisa Ge APRN-CNP [address] [place] [address] TAPE CONTROL SKIN OR SPAR MILL OPERATOR Pulmonary Medicine 06/02/20 Jamie Hardin MD [address] [place] [address] [phone] Physician General Surgery 06/02/20 Page Faulkner M.Ed., R.D., L.D. [address] [address] Dietitian Nutrition 06/02/20 Rita Catherine MD [address] [place] [address] [phone] Physician Obstetrics/Gynecology 06/02/20 Rishabh Hi, JETTING MACHINE OPERATOR-TECHNICAL SALES SUPPORT MANAGER [address] [place] [address] TAPE CONTROL SKIN OR SPAR MILL OPERATOR Anesthesiology 06/02/20 FOR RECORDS PERTAINING TO [...] BE BASED ON THE PRIMARY CLINICAL RECORDS. [facility]. provides no warranty or guarantee of the accuracy or completeness of information in this document.
== END 2024-01-01 08:21 | disposition home or self-care (01) ==
LOC: LAB 01-03 08:21
PROVIDERS: PCP Family Medicine
DX: Z31.0 Encounter for reversal of previous sterilization (principal)
CPT/HCPCS: 36415; 84702

== ENCOUNTER 2024-05-08 07:36 | Outpatient (OUT) | payer BC, SELFPAY ==
--- OUTSIDE RECORDS SUMMARY | 2024-05-08 07:41 | XMS_ITS | CCD ---
Author Organization [facility] Care Team Providers Care Roller Staker Name Role Phone No Family Physician Unavailable Unavailable No Family Physician Unavailable Unavailable NO FAMILY DOCTOR, NO FAMILY DOCTOR Primary Care Unavailable YANIRA MARTINO Attending Unavailable Swathi DANIEL Referring Unavailab le PROVIDER, UNKNOWN Attending Unavailable PROVIDER, UNKNOWN Admitting Unavailable WILSON CASTRO Primary Care Unavailable Yoils James Unavailable Joo PACKER, Luisa Unavailable [phone] Lashawn MESSER, Jamie Unavailable [phone] Kaushik West, R.Keyana., L.D., Page Unavailable Florin MESSER, Rita Unavailable Sussy PACKER, Rishabh NAlexia Unavailable [phone] Jada Oliveros Unavailable Joo PACKER, Luisa Unavailable Lashawn MESSER, Jamie Unavailable [phone] Kaushik West, R.Keyana., L.D., Page Unavailable Florin MESSER, Rita Unavailable Sussy PACKER, Rishabh NAlexia Unavailable ALVARO ., DR GOSS Attending Unavailable ALVARO ., DR GOSS Admitting Unavailable ARLIN, DR JADA Corey Primary Care Unavailable ALVARO ., DR GOSS Consulting Unavailable REQUEST, DR GARAY LISTED Primary Care Unavaila ble ALVARO ., DR GOSS Attending Unavailable TRENTON, DR YANIRA Steele Consulting Unavailable ALVARO ., [...] Unavailable ALVARO ., DR GOSS Admitting Unavailable OLIVREOS, DR JADA Corey Primary Care Unavailable ALVARO ., DR GOSS Consulting Unavailable Allergies Allergy Classification Reported Allergen(s) Allergy Type Date of Onset Reaction(s) Facility (3 sources) SEASONAL IC; Translations: [SEASONAL IC] Propensity to adverse reactions to drug (disorder) 9 [facility] Repository Medications Current Medications Medication Drug Class(es) [...] / neomycin 3.5 mg/ml / polymyxin b 38503 unt/ml otic solution (1 source) Aminoglycoside Antibacterial, [...] HCGon 01-17-2023 HCG QUANT <1 Normal [facility] Comment on above: Performed By: #### P REGQNT #### [facility] [address] [place] [address] Dr. Meghan Vital HCG RANGE SEE BELOW Normal [facility] Comment on above: Result Comment: 5-50 0.2-1 WEEK 50-500 1-2 WEEKS 100-5,000 2-3 WEEKS 500-10,000 3-4 WEEKS 1,000-50,000 4-5 WEEKS 10,000-100,000 5-6 WEEKS 15,000-200,000 6-8 WEEKS 10,000-100,000 2-3 MONTHS Performed By: #### P REGQNT #### [facility] [address] [place] [address] Dr. Meghan Vital PROGESTERONEon 01-10-2023 Progesterone 8.9 ng/mL Normal [facility] Comment on above: Result Comment: Foll icular phase 0.1 - 0.9 Luteal phase 1.8 - 23.9 Ovulation phase 0.1 - 12.0 First trimester 11.0 - 44.3 Second trimester 25.4 - 83.3 Third trimester 58.7 - 214.0 Postmenopausal 0.0 - 0.1 Performed By: #### H CGSUB #### [facility] [address] [place] [address] Dr. Meghan Vital PAP ACOG PANEL 2: 30 to 65on 11-30-2022 . . Normal [facility] Comment on above: Result Comment: Perf ormed at: WB Performed By: #### [id number] #### [facility] [address] [place] [address] Dr. Meghan Vital Age Gdln ACOG Testing 30-65 [facility] Comment on above: Performed By: #### [id number] #### [facility] [address] [place] [address] Dr. Meghan Vital DIAGNOSIS: Comment Normal [facility] Comment on above: Result Comment: NEGA TIVE FOR INTRAEPITHELIAL LESION OR MALIGNANCY. Performed at: WB Performed By: #### [id number] #### [facility] [address] [place] [address] Dr. Meghan Vital HPV Aptima Positive Abnormal Negative [facility] Comment on above: Result Comment: This nucleic acid amplification test detects fourteen high-risk HPV types (16,18,31,33,35,39,45,51,52,56,58,59,66,68) without differentiation. Performed at: =G Performed By: #### [id number] #### [facility] [address] [place] [address] Dr. Meghan Vital HPV Genotype 16 Negative Normal Negative [facility] Comment on above: Performed By: #### [id number] #### [facility] [address] [place] [address] Dr. Meghan Vital HPV Genotype 18,45 Negative Normal Negative [facility] Comment on above: Performed By: #### [id number] #### [facility] [address] [place] [address] Dr. Meghan Vital HPV Genotype Reflex Comment Normal [facility] Comment on above: Result Comment: Aiyana iqbal, see HPV Genotype results. Performed at: WB Performed By: #### [id number] #### [facility] [address] [place] [address] Dr. Meghan Vital Methodology: Comment Normal [facility] Comment on above: Result Comment: This liquid based ThinPrep(R) pap test was screened with the use of an image guided system. Performed at: WB Performed By: #### [id number] #### [facility] [address] [place] [address] Dr. Meghan Vital Note: Comment Normal [facility] Comment on above: Result Comment: The Pap smear is a screening test designed to aid in the detection of premalignant and malignant conditions of the uterine cervix. It is not a diagnostic procedure and should not be used as the sole means of detecting cervical cancer. Both false-positive and false-negative reports do occur. . Performed at: WB Performed By: #### [id number] #### [facility] [address] [place] [address] Dr. Meghan Vital Performed by: Comment Normal [facility] Comment on above: Result Comment: Rahul Kincaid, Biology Faculty Member (ASCP) Performed at: WB Performed By: #### [id number] #### [facility] [address] [place] [address] Dr. Meghan Vital Specimen adequacy: Comment Normal [facility] Comment on above: Result Comment: Sati sfactory for evaluation. Endocervical and/or squamous metaplastic cells (endocervical component) are present. Performed at: WB Performed By: #### [id number] #### [facility] [address] [place] [address] Dr. Meghan Vital ANTI-MULLERIAN HORMONEon Anti-Mullerian Hormone (AMH) 3.03 ng/mL Normal [facility] Comment on above: Result Comment: For assays employing antibodies, the possibility exists for interference by heterophile antibodies in the samples.1 1.Bailey Dickson Interferences in Immunoassays - still a threat. Clin. Chem. 2000; 46: 2662-2087. This test was developed and its performance characteristics determined by [employer]. It has not been cleared or approved by the Food and Drug Administration. Reference Range: Females 36 - 40y: 0.42 - 8.34 Median 1.69 AMH concentrations of >= 1.06 ng/mL is correlated with a better response to ovarian stimulation, produced more retrievable oocytes and higher odds of live according to Holland et al. Fertility and Sterility. 2010: 94:2067-0261. The current AMH test method correlates with [...] tumor. Performed By: #### H CGSUB #### [facility] [address] [place] [address] Dr. Meghan Vital CBC AUTO DIFFon 11-21-2022 BASO # 0.1 103/ul Normal 0.0-0.1 [facility] Comment on above: Performed By: #### H CGSUB #### [facility] [address] [place] [address] Dr. Meghan Vital Basophils/100 WBC (Bld) 0.8 % Normal 0.2-2.0 [facility] Comment on above: Performed By: #### H CGSUB #### [facility] [address] [place] [address] Dr. Meghan Vital EO # 0.2 103/ul Normal 0.0-0.7 [facility] Comment on above: Performed By: #### H CGSUB #### [facility] [address] [place] [address] Dr. Meghan Vital Eosinophils/100 WBC (Bld) 2.3 % Normal 0.9-7.0 [facility] Comment on above: Performed By: #### H CGSUB #### [facility] [address] [place] [address] Dr. Meghan Vital Erythrocyte distribution width (RBC) [Ratio] 13.3 % Normal 11.0-15.0 [facility] Comment on above: Performed By: #### H CGSUB #### [facility] [address] [place] [address] Dr. Meghan Vital Hematocrit (Bld) [Volume fraction] 42.4 % Normal 36.0-48.0 [facility] Comment on above: Performed By: #### H CGSUB #### [facility] [address] [place] [address] Dr. Meghan Vital Hemoglobin (Bld) [Mass/Vol] 13.6 g/dL Normal 12.0-16.0 [facility] Comment on above: Performed By: #### H CGSUB #### [facility] [address] [place] [address] Dr. Meghan Vital IG # 0.01 10e3/ul Normal 0.00-0.03 [facility] Comment on above: Performed By: #### H CGSUB #### [facility] [address] [place] [address] Dr. Meghan Vital IG % 0.1 % Normal 0.0-0.5 [facility] Comment on above: Performed By: #### H CGSUB #### [facility] [address] [place] [address] Dr. Meghan Vital LYMPH # 3.9 103/ul Critically high 1.2-3.8 [facility] Comment on above: Performed By: #### H CGSUB #### [facility] [address] [place] [address] Dr. Meghan Vital Lymphocytes/100 WBC (Bld) 42.7 % Normal 20.5-60.0 [facility] Comment on above: Performed By: #### H CGSUB #### [facility] [address] [place] [address] Dr. Meghan Vital MANUAL DIFF REQ NO Normal [facility] Comment on above: Performed By: #### H CGSUB #### [facility] [address] [place] [address] Dr. Meghan Vital MCH (RBC) [Entitic mass] 27.4 pg Normal 26.7-34.0 [facility] Comment on above: Performed By: #### H CGSUB #### [facility] [address] [place] [address] Dr. Meghan Vital MCHC (RBC) [Mass/Vol] 32.1 g/dL Normal 29.9-35.2 [facility] Comment on above: Performed By: #### H CGSUB #### [facility] [address] [place] [address] Dr. Meghan Vital MCV (RBC) [Entitic vol] 85.3 fL Normal 81.0-99.0 [facility] Comment on above: Performed By: #### H CGSUB #### [facility] [address] [place] [address] Dr. Meghan Vital MONO # 0.6 103/ul Normal 0.3-0.8 [facility] Comment on above: Performed By: #### H CGSUB #### [facility] [address] [place] [address] Dr. Meghan Vital Monocytes/100 WBC (Bld) 6.1 % Normal 1.7-12.0 [facility] Comment on above: Performed By: #### H CGSUB #### [facility] [address] [place] [address] Dr. Meghan Vital NEUT # 4.3 103/ul Normal 1.4-6.5 [facility] Comment on above: Performed By: #### H CGSUB #### [facility] [address] [place] [address] Dr. Meghan Vital Neutrophils/100 WBC (Bld) 48.0 % Normal 43.0-75.0 [facility] Comment on above: Performed By: #### H CGSUB #### [facility] [address] [place] [address] Dr. Meghan Vital Platelet mean volume (Bld) [Entitic vol] 11.5 fL Normal 9.5-13.5 [facility] Comment on above: Performed By: #### H CGSUB #### [facility] [address] [place] [address] Dr. Meghan Vital PLT 251 103/ul Normal 150-450 [facility] Comment on above: Performed By: #### H CGSUB #### [facility] [address] [place] [address] Dr. Meghan Vital RBC 4.97 106/ul Normal 4.20-5.40 [facility] Comment on above: Performed By: #### H CGSUB #### [facility] [address] [place] [address] Dr. Meghan Vital WBC 9.0 103/ul Normal 4.0-11.0 [facility] Comment on above: Performed By: #### H CGSUB #### [facility] [address] [place] [address] Dr. Meghan Vital FREE T4on 11-21-2022 Free T4 [Mass/Vol] 1.03 ng/dL Normal 0.76-1.46 [facility] Comment on above: Performed By: #### F T4 #### [facility] [address] [place] [address] Dr. Meghan Vital GLYCOHEMOGLOBIN A1Con 2022 ADA RECOMMENDATION SEE BELOW Normal [facility] Comment on above: Result Comment: ADA RECOMMENDED LIMIT 4.0 - 6.0 ADA THERAPEUTIC TARGET < 7.0 ACTION SUGGESTED > 7.0 Performed By: #### H CGSUB #### [facility] [address] [place] [address] Dr. Meghan Vital Glucose [Mass/Vol] 97 mg/dL Normal [facility] Comment on above: Performed By: #### H CGSUB #### [facility] [address] [place] [address] Dr. Meghan Vital HbA1c (Bld) [Mass fraction] 5.0 % Normal 4.5-6.2 [facility] Comment on above: Performed By: #### H CGSUB #### [facility] [address] [place] [address] Dr. Meghan Vital TSHon 11-21-2022 TSH 1.636 uIU/mL Normal 0.358-3.74 0 [facility] Comment on above: Performed By: #### H CGSUB #### [facility] [address] [place] [address] Dr. Meghan Vital PROGESTERONEon 10-12-2022 Progesterone 6.8 ng/mL Normal [facility] Comment on above: Result Comment: Foll icular phase 0.1 - 0.9 Luteal phase 1.8 - 23.9 Ovulation phase 0.1 - 12.0 First trimester 11.0 - 44.3 Second trimester 25.4 - 83.3 Third trimester 58.7 - 214.0 Postmenopausal 0.0 - 0.1 Performed By: #### H CGSUB #### [facility] [address] [place] [address] Dr. Meghan Vital CBC AUTO DIFFon 09-23-2022 BASO # 0.1 103/ul Normal 0.0-0.1 [facility] Comment on above: Performed By: #### C BC #### [facility] [address] [place] [address] Dr. Meghan Vital Basophils/100 WBC (Bld) 1.2 % Normal 0.2-2.0 [facility] Comment on above: Performed By: #### C BC #### [facility] [address] [place] [address] Dr. Meghan Vital EO # 0.2 103/ul Normal 0.0-0.7 [facility] Comment on above: Performed By: #### C BC #### [facility] [address] [place] [address] Dr. Meghan Vital Eosinophils/100 WBC (Bld) 2.4 % Normal 0.9-7.0 [facility] Comment on above: Performed By: #### C BC #### [facility] [address] [place] [address] Dr. Meghan Vital Erythrocyte distribution width (RBC) [Ratio] 13.1 % Normal 11.0-15.0 [facility] Comment on above: Performed By: #### C BC #### [facility] [address] [place] [address] Dr. Meghan Vital Hematocrit (Bld) [Volume fraction] 38.1 % Normal 36.0-48.0 [facility] Comment on above: Performed By: #### C BC #### [facility] [address] [place] [address] Dr. Meghan Vital Hemoglobin (Bld) [Mass/Vol] 13.4 g/dL Normal 12.0-16.0 [facility] Comment on above: Performed By: #### C BC #### [facility] [address] [place] [address] Dr. Meghan Vital IG # 0.01 10e3/ul Normal 0.00-0.03 [facility] Comment on above: Performed By: #### C BC #### [facility] [address] [place] [address] Dr. Meghan Vital IG % 0.1 % Normal 0.0-0.5 [facility] Comment on above: Performed By: #### C BC #### [facility] [address] [place] [address] Dr. Meghan Vital LYMPH # 3.4 103/ul Normal 1.2-3.8 [facility] Comment on above: Performed By: #### C BC #### [facility] [address] [place] [address] Dr. Meghan Vital Lymphocytes/100 WBC (Bld) 45.2 % Normal 20.5-60.0 [facility] Comment on above: Performed By: #### C BC #### [facility] [address] [place] [address] Dr. Meghan Vital MANUAL DIFF REQ NO Normal [facility] Comment on above: Performed By: #### C BC #### [facility] [address] [address] [address] Meghan Vital MCH (RBC) [Entitic mass] 27.8 pg Normal 26.7-34.0 [facility] Comment on above: Performed By: #### C BC #### [facility] [address] [place] [address] Dr. Meghan Vital MCHC (RBC) [Mass/Vol] 35.2 g/dL Normal 29.9-35.2 [facility] Comment on above: Performed By: #### C BC #### [facility] [address] [place] [address] Dr. Meghan Vital MCV (RBC) [Entitic vol] 79.0 fL Critically low 81.0-99.0 [facility] Comment on above: Performed By: #### C BC #### [facility] [address] [place] [address] Dr. Meghan Vital MONO # 0.4 103/ul Normal 0.3-0.8 [facility] Comment on above: Performed By: #### C BC #### [facility] [address] [place] [address] Dr. Meghan Vital Monocytes/100 WBC (Bld) 5.3 % Normal 1.7-12.0 [facility] Comment on above: Performed By: #### C BC #### [facility] [address] [place] [address] Dr. Meghan Vital NEUT # 3.4 103/ul Normal 1.4-6.5 [facility] Comment on above: Performed By: #### C BC #### [facility] [address] [place] [address] Dr. Meghan Vital Neutrophils/100 WBC (Bld) 45.8 % Normal 43.0-75.0 [facility] Comment on above: Performed By: #### C BC #### [facility] [address] [place] [address] Dr. Meghan Vital Platelet mean volume (Bld) [Entitic vol] 11.4 fL Normal 9.5-13.5 [facility] Comment on above: Performed By: #### C BC #### [facility] [address] [address] [address] Meghan Vital PLT 280 103/ul Normal 150-450 [facility] Comment on above: Performed By: #### C BC #### [facility] [address] [address] [address] Meghan Vital RBC 4.82 106/ul Normal 4.20-5.40 [facility] Comment on above: Performed By: #### C BC #### [facility] [address] [address] [address] Meghan Vital WBC 7.5 103/ul Normal 4.0-11.0 [facility] Comment on above: Performed By: #### C BC #### [facility] [address] [place] [address] Dr. Meghan Vital FREE T4on 09-23-2022 Free T4 [Mass/Vol] 1.17 ng/dL Normal 0.76-1.46 [facility] Comment on above: Performed By: #### H CGSUB #### [facility] [address] [place] [address] Dr. Meghan Vital GLYCOHEMOGLOBIN A1Con 2022 ADA RECOMMENDATION SEE BELOW Normal [facility] Comment on above: Result Comment: ADA RECOMMENDED LIMIT 4.0 - 6.0 ADA THERAPEUTIC TARGET < 7.0 ACTION SUGGESTED > 7.0 Performed By: #### A 1C #### [facility] [address] [place] [address] Dr. Meghan Vital Glucose [Mass/Vol] 100 mg/dL Normal [facility] Comment on above: Performed By: #### A 1C #### [facility] [address] [place] [address] Dr. Meghan Vital HbA1c (Bld) [Mass fraction] 5.1 % Normal 4.5-6.2 [facility] Comment on above: Performed By: #### A 1C #### [facility] [address] [place] [address] Dr. Meghan Vital TSHon 01-27-2023 TSH 1.235 uIU/mL Normal 0.358-3.74 0 [facility] Comment on above: Performed By: #### T SH #### [facility] [address] [place] [address] Dr. Meghan Vital PREG QUANT HCGon 07-12-2022 HCG QUANT 1 mIU/mL Normal [facility] Comment on above: Performed By: #### P REGQNT #### [facility] [address] [place] [address] Dr. Meghan Vital HCG RANGE SEE BELOW [facility] Comment on above: Result Comment: 5-50 0.2-1 WEEK 50-500 1-2 WEEKS 100-5,000 2-3 WEEKS 500-10,000 3-4 WEEKS 1,000-50,000 4-5 WEEKS 10,000-100,000 5-6 WEEKS 15,000-200,000 6-8 WEEKS 10,000-100,000 2-3 MONTHS Performed By: #### P REGQNT #### [facility] [address] [place] [address] Dr. Meghan Vital XR HYSTEROSALPINGOGRAMon XR HYSTEROSALPINGOGRAM [...] by: YADIRA BAKER Date: 2022-07-12 12:12 Normal [facility] PROGESTERONEon 06-30-2022 Progesterone 20.9 ng/mL Normal [facility] Comment on above: Result Comment: Foll icular phase 0.1 - 0.9 Luteal phase 1.8 - 23.9 Ovulation phase 0.1 - 12.0 First trimester 11.0 - 44.3 Second trimester 25.4 - 83.3 Third trimester 58.7 - 214.0 Postmenopausal 0.0 - 0.1 Performed By: #### P PHIL #### [facility] [address] [address] [address] Meghan Vital HCG-BETA SUBUNIT QUANTon hCG,Beta Subunit,Qnt,Serum <1 Normal [facility] Comment on above: Result Comment: Fema le (Non-) 0 - 5 (Postmenopausal) 0 - 8 . Female () Weeks of Gestation 3 6 - 71 4 10 - 750 5 217 - 7138 6 158 - 63746 7 3697 [phone] 8 04404 -564084 9 31637 -675189 10 85824 -061176 12 02899 -480552 14 22981 - 04519 15 38667 - 07201 16 9085 - 40541 17 8175 - 88818 18 8099 - 82274 Jeremy ECLIA methodology Performed By: #### H CGSUB #### [facility] [address] [place] [address] Dr. Meghan Vital HCG-BETA SUBUNIT QUANTon hCG,Beta Subunit,Qnt,Serum <1 Normal [facility] Comment on above: Result Comment: Fema le (Non-) 0 - 5 (Postmenopausal) 0 - 8 . Female () Weeks of Gestation 3 6 - 71 4 10 - 750 5 217 - 7138 6 158 - 83717 7 3697 -876320 8 31570 -387172 9 83770 -423533 10 12914 -010731 12 87875 -752379 14 50630 - 92836 15 81277 - 58966 16 9089 - 75331 17 8175 - 70257 18 8099 - 75144 Jeremy ECLIA methodology Performed By: #### H CGSUB #### [facility] [address] [place] [address] Dr. Meghan Vital PROGESTERONEon 02-26-2022 Progesterone <0.1 Normal [facility] Comment on above: Result Comment: Foll icular phase 0.1 - 0.9 Luteal phase 1.8 - 23.9 Ovulation phase 0.1 - 12.0 First trimester 11.0 - 44.3 Second trimester 25.4 - 83.3 Third trimester 58.7 - 214.0 Postmenopausal 0.0 - 0.1 Performed By: #### P PHIL #### [facility] [address] [place] [address] Dr. Meghan Vital US PELVIS AND TRANSVAGon [...] YANIRA MICHAEL Date: 2022-02-24 16:57 Normal [facility] Ambulatory Clinical Summaryo n 12-22-2020 Ambulatory Clinical Summary {[id number]:61 [id number] Normal [facility] Family Medicine Office/Clini c Noteon 12-22-2020 [...] documented 3008F Office Visit Level 2 Est 46005 2. Tobacco use (Z72.0: Tobacco use) We [...] smoker 1034F Office Visit Level 2 Est 37722 3. Hordeolum externum right lower eyelid (H00.012: Hordeolum externum right lower eyelid) Will treat with bacitracin ointment. May use warm compresses 3-4 x day. FU with PCP if not gradually improving over next 7 days, sooner if significantly spreading erythema, edema, warmth, fever. Patient verbalized understanding of tx plan Ordered: Office Visit Level 2 Est 25103 Orders: erythromycin ophthalmic, 0.5 in, OPTH, QID [...] 11/17/2020 Family History Family history is negative [facility] Comment on above: Result Comment: Elec [...] increased risk of the following: ? Sudden infant syndrome (SIDS). ? Respiratory infections. ? Lung [...] methods. Where to find more information ? [place] [employer]: www.lung.org ? [place] [employer]: www.cancer.org Summary ? Smoking cigarettes [...] 09/21/2005 Document Revised: 11/15/2018 Document Reviewed: 08/18/2017 [employer] Patient Education ? [address] [facility] Provider Letteron 12-22-2020 Provider Letter (Inserted Image. Mary ble to display) December 22, 2020 FARTUN RODRÍGUEZ [address] [place] [phone] FARTUN RODRÍGUEZ 1985 To Whom It May Concern, Please excuse above patient from work. Date of Illness:12/22/2020 May Return to Work On:12/23/2020 Comments: _ Patient was seen in office today, she may return at the date listed above Sincerely, [facility] [address] [place] [id number] [facility] Ambulatory Clinical Summaryo n 11-17-2020 Ambulatory Clinical Summary {[id number]}CD:[address] 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 We encourage you to visit www.[employer].gov access to helpful resources including free telephone [...] 30 days Tobacco Use:. Cigarettes, Yes, 11/17/2020 [facility] Comment on above: Result Comment: Elec [...] to help relieve symptoms, such as: ? Qvkt-znj-cizvobw cold medicines. ? Cough suppressants. Coughing is [...] other clear broths. General instructions ? Take slzr-ejf-suxgsbu and prescription medicines only as told by [...] and water are not available, use hand trace evidence technician. ? Avoid touching your mouth, face, eyes, [...] common infecti (more content not included)... Normal [facility] [facility] Provider Letteron 11-17-2020 Provider Letter (Inserted Image. Mary ble to display) November 17, 2020 FARTUN RODRÍGUEZ [address] [place] [id number] FARTUN RODRÍGUEZ 1985 To Whom It May Concern, Please excuse above patient from work. Date of Illness: From: 11/17/2020 To: 11/18/2020 May Return to Work On:11/19/2020 Comments: Patient above was seen at [facility] on 11/17/2020. Sincerely, [facility] [address] [place] [address] [facility] Provider Letteron 09-22-2020 Provider Letter (Inserted Image. Mary ble to display) September 22, 2020 FARTUN RODRÍGUEZ [address] [place] [phone] FARTUN RODRÍGUEZ 1985 To Whom It May Concern, Please excuse above patient from work. Date of Illness: From: 09/22/2020 May Return to Work On:09/23/2020 Comments: The above patient may return back to work on the above date. Sincerely, [facility] [address] [place] [address] [facility] SURGICAL PATH REPORTon 07-31 SURGICAL PATH REPORT [facility] Department of Pathology [address] [place] [phone] Name: FARTUN RODRÍGUEZ : 1985 Financial [id number] Number: Gender: Female Location: [facility] Admit 34 years Attending ANA PAULA JOHN Age: Provider: Ordering ANA PAULA JOHN Provider: Consulting: Surgical Pathology Report ACCESSION: COLLECTED DATE/TIME: RECEIVED DATE/TIME: PATHOLOGIST: [id number] 07/30/2020 13:19 EST 07/30/2020 13:19 EST SHADE MULLER MD Final Diagnosis Report for [facility] [place] [place] [employer]: - [place]. [...] cm. There are no grossly identifiable parts. Watchguard sections are submitted in three cassettes. MP/ekaterina 07/30/2020 Tissue pathology report for: [facility], [address] [place] [address]; Print Date/ 07/31/2020 15:05 EST Number: Time: [facility] Department of Pathology [address] [place] [phone] Name: FARTUN RODRÍGUEZ : 1985 Financial [id number] Number: Gender: Female Location: [facility] Admit 34 years Attending ANA PAULA JOHN Age: Provider: Ordering ANA PAULA JOHN Provider: Consulting: Surgical Pathology Report ACCESSION: COLLECTED DATE/TIME: RECEIVED DATE/TIME: PATHOLOGIST: [id number] 07/30/2020 13:19 EST 07/30/2020 13:19 EST YOHANA MESSER, SHADE Gross Description PATHOLOGY SERVICES PROVIDED BY [employer] (CLIA #[id number]) in cooperation with [facility] [address] [place] [address] (CLIA #[id number]) Codes CPT CODE: 67002 Print Date07/31/2020 15:05 EST Number: Time: Normal [facility] Comment on above: Performed By: #### [id number] #### [facility] [address] [place] [address] Ceramic Tile Setter: Shade Muller MD Consenton 05-29-2020 Consent [id number]:127 Normal [facility] Registrationon 05-29-2020 Registration [id number]:127 Normal [facility] Influenza A,Bon 11-08-2018 Influenza A, Rapid Ag Negative Normal Negative [facility] Comment on above: Performed By: #### [id number] #### [facility] [address] [place] [address] Influenza B, Rapid Ag Negative Normal Negative [facility] Comment on above: Performed By: #### 5 [id number] #### [facility] [address] [place] [address] Urinalysis with Reflex Cultu reon 11-08-2018 Appearance Nom (U) Clear Normal Clear [facility] Comment on above: Performed By: #### U ARFX #### [facility] [address] [place] [address] Ascorbic Acid Negative Normal Negative [facility] Comment on above: Performed By: #### U ARFX #### [facility] [address] [place] [address] Automated Urine Microscopy Not indicated Normal [facility] Comment on above: Performed By: #### U ARFX #### [facility] [address] [place] [address] Bilirubin mass conc Negative Normal Negative [facility] Comment on above: Performed By: #### U ARFX #### [facility] [address] [place] [address] Blood Negative Normal Negative [facility] Comment on above: Performed By: #### U ARFX #### [facility] [address] [place] [address] Color Nom (U) Yellow Normal [facility] Comment on above: Performed By: #### U ARFX #### [facility] [address] [place] [address] Glucose mass conc 50 mg/dL Abnormal Negative [facility] Comment on above: Performed By: #### U ARFX #### [facility] [address] [place] [address] Ketones Ql (U) Negative Normal Negative [facility] Comment on above: Performed By: #### U ARFX #### [facility] [address] [place] [address] Leukocytes Esterase Negative Normal Negative [facility] Comment on above: Performed By: #### U ARFX #### [facility] [address] [place] [address] Nitrite Ql (U) Negative Normal Negative [facility] Comment on above: Performed By: #### U ARFX #### [facility] [address] [place] [address] pH (Bld) 5.0 Normal 5.0-9.0 [facility] Comment on above: Performed By: #### U ARFX #### [facility] [address] [place] [address] Protein mass conc (U) Negative Normal Negative [facility] Comment on above: Performed By: #### U ARFX #### [facility] [address] [place] [address] Specific gravity Relative Density (U) 1.026 Normal 1.003-1.03 5 [facility] Comment on above: Performed By: #### U ARFX #### [facility] [address] [place] [address] Urobilinogen Qn (U) <2.0 Normal Negative [facility] Comment on above: Result Comment: Due to a manufacturing issue, low positive urobilinogen results may be falsely positive. Correlate with urine bilirubin and additional clinical/laboratory findings to assess the risk of hemolytic anemia or liver disease. If clinically indicated, repeat testing with an alternate method is available by contacting the laboratory within 24 hours. Performed By: #### U ARFX #### [facility] [address] [place] [address] STREP GROUP A AG QUALon 08-29 STREP GROUP A AG QUAL STREP GROUP A AG Q UAL GROUP A STREP NEGATIVE FOR STREPTOCOCCUS GROUP A ANTIGEN THROAT CULTURE: REFERRED TO [facility] FOR CULTURE CONFIRMATION CULTURE RESULT: CULTURE NEGATIVE FOR BETA STREP GROUP A Normal [facility] Comment on above: Performed By: #### M STREPA ####[facility] [id number] [place] [address] ED Provider Reporton 018 ED Provider Report [facility] [place], [place] [address]Patient Name: FARTUN RODRÍGUEZ : [birth year]Acct #: [id number] Unit #: [id number] ER Arrival Date: 09/21/17 ER Physician: Yoshi [...] illicit drug usePast Social HistorySmoking Status:FORMER SMOKERTobacco UseCIGARETTESPacks/Uhs1Utob :LESS THAN 1 YEAR AGOReview of SystemsReview [...] Resp B/P B/P Pulse O2 O2 Flow BqO7Ncxm Ox Delivery Rate01/25 1712 36.5 83 18 [...] to follow-up with PCP.Disposition DecisionDischargeDispositio n Date09/21/17Decision [id number] obiologyDate/Time Procedure - StatusSource Xlfcql64/25 1745 Group A Streptococcus Screen (BETHANY) - [...] Cali Gregory P. DO 09/22/17 1146 Normal [facility] Vital Signs Date Time Vital Sign Value Performing Clinician Facility 05-31-2023 09:00-0400 Body height 162.56 cm Jada Oliveros Other [facility] Other 05-31-2023 09:00-0400 Body mass index (BMI) [Ratio] 24.54 kg/m2 Jada Oliveros Other [facility] Other 05-31-2023 09:00-0400 Body weight 64.86 kg Jada Oliveros Other [facility] Other 05-31-2023 09:00-0400 Diastolic blood pressure 65 mm[Hg] Jada Oliveros Other [facility] Other 05-31-2023 09:00-0400 Systolic blood pressure 98 mm[Hg] Jada Oliveros Other [facility] Other 11-08-2022 16:15-0400 Body height 162.56 cm Jada Oliveros Other [facility] Other 11-08-2022 16:15-0400 Body mass index (BMI) [Ratio] 25.4 kg/m2 Jada Oliveros Other [facility] Other 11-08-2022 16:15-0400 Body temperature 97.4 [degF] Jada Oliveros Other [facility] Other 11-08-2022 16:15-0400 Body weight 67.13 kg Jada Oliveros Other [facility] Other 11-08-2022 16:15-0400 Diastolic blood pressure 74 mm[Hg] Jada Oliveros Other [facility] Other 11-08-2022 16:15-0400 SaO2% (BldA) [Mass fraction] 99 % Jada Oliveros Other [facility] Other 11-08-2022 16:15-0400 Systolic blood pressure 120 mm[Hg] Jada Oliveros Other [facility] Other 06-12-2022 12:15-0400 Body height 162.56 cm Yolis James Other [facility] Other 06-12-2022 12:15-0400 Body mass index (BMI) [Ratio] 25.74 kg/m2 Yolis James Other [facility] Other 06-12-2022 12:15-0400 Body temperature 98.1 [degF] Yolis James Other [facility] Other 06-12-2022 12:15-0400 Body weight 68.04 kg Yolis James Other [facility] Other 06-12-2022 12:15-0400 Diastolic blood pressure 61 mm[Hg] Yolis James Other [facility] Other 06-12-2022 12:15-0400 Respiratory rate 18 /min Yolis James Other [facility] Other 06-12-2022 12:15-0400 SaO2% (BldA) [Mass fraction] 100 % Yolis James Other [facility] Other 06-12-2022 12:15-0400 Systolic blood pressure 108 mm[Hg] Yolis James Other [facility] Other Encounters Encounter Date Encounter Type Care Provider Facility Start: 05-31-2023 End: 05-31-2023 ambulatory Jada Oliveros Other [facility] Other Start: 05-31-2023 Office outpatient visit 15 minutes Jada Oliveros [facility] Start: 01-17-2023 End: 01-25-[address] ANA PAULA JOHN . Facility:[facility] Start: 01-09-2023 End: 01-10-[address] ANA PAULA JOHN . Facility:[facility] Start: 11-26-2022 Letter encounter Luisa Ge APRN-SPEECH PATHOLOGY TEACHER [facility] Start: 11-21-2022 End: 11-21-[address] ANA PAULA JOHN . Facility:[facility] Start: 11-21-2022 End: 11-22-[address] ANA PAULA JOHN . Facility:[facility] Start: 11-08-2022 End: 11-08-2022 ambulatory Jada Oliveros Other [facility] Other Start: 11-08-2022 Office outpatient visit 15 minutes Jada Oliveros [facility] Start: 10-11-2022 End: 10-12-[address] ANA PAULA JOHN . Facility:[facility] Start: 09-23-2022 End: 09-24-[address] ANA PAULA JOHN . Facility:[facility] Start: 09-04-2022 Letter encounter Luisa Ge APRN-SPEECH PATHOLOGY TEACHER [facility] Start: 07-12-2022 End: 07-12-[address] ANA PAULA JOHN . Facility:[facility] Start: 06-29-2022 End: 06-30-[address] ANA PAULA JOHN . Facility:[facility] Start: 06-12-2022 End: 06-12-2022 ambulatory Yolis James Other [facility] Other Start: 06-12-2022 Office outpatient ne w 20 minutes Yolis James [facility] Start: 05-05-[address] ANA PAULA JOHN . Facili ty:[facility] Start: 04-27-2022 End: 04-28-[address] ANA PAULA JOHN . Facility:[facility] Start: 03-23-2022 End: 03-24-[address] ANA PAULA JOHN . Facility:[facility] Start: 02-25-2022 End: 02-26-[address] ANA PAULA JOHN . Facility:[facility] Start: 02-24-2022 End: 02-25-[address] NONE LISTED REQUEST Facility: Start: 05-11-2020 [facility]ulatory [facility] Start: 11-07-2018 End: 11-08-2018 Emergency department patient visit NO FAMILY DOCTOR NO FAMILY DOCTOR Facility:[facility] Start: 09-21-2017 Emergency department patient visit No Family Physician Facility:[facility] Procedures Date Procedure Procedure Detail Performing Clinician Start: 07-08-2019 Microscopic observat ion [Identifier] in Cervix by Cyto stain Luisa Ge SENIOR ORACLE ADF DEVELOPER-SPEECH PATHOLOGY TEACHER Work Phone: Plan of Treatment Date Care Activity Detail Author Start: 2036 Shingles (RZV) Vacci ne (1 of 2) Shingles (RZV) Vaccine (1 of 2) [facility] Start: 06-26-2023 Tetanus vaccination Tetanus (T d or Tdap) Booster [facility] Start: 07-08-2022 Screening for malign ant neoplasm of cervix Pap Smear [facility] Start: 05-28-2022 Influenza vaccination Influenza Vacc ine (#1) [facility] Start: 02-23-1987 COVID-19 Vaccine (#1) COVID-19 Vacci ne (#1) [facility] Start: 1985 Screening for malign ant neoplasm of breast Mammography shared decision making (35 through 39 years) [facility] Immunizations Immunization Date Immunization Notes Care Provider Ubaldo araujo 10-23-2013 tuberculin skin test ; purified protein derivative solution, intradermal Luisa Ge SENIOR ORACLE ADF DEVELOPER-SPEECH PATHOLOGY TEACHER Work Phone: [facility] 06-26-2013 tetanus toxoid, redu thalia diphtheria toxoid, and acellular pertussis vaccine, adsorbed Luisa Ross SENIOR ORACLE ADF DEVELOPER-SPEECH PATHOLOGY TEACHER Work Phone: [facility] 05-08-2013 human papilloma viru s vaccine, quadrivalent Luisa Ge SENIOR ORACLE ADF DEVELOPER-SPEECH PATHOLOGY TEACHER Work Phone: [facility] 01-10-2013 human papilloma viru s vaccine, quadrivalent Luisa Ross SENIOR ORACLE ADF DEVELOPER-SPEECH PATHOLOGY TEACHER Work Phone: [facility] 11-15-2012 human papilloma viru s vaccine, quadrivalent Luisa Joo SENIOR ORACLE ADF DEVELOPER-SPEECH PATHOLOGY TEACHER Work Phone: [facility] 10-16-2010 tetanus toxoid, redu thalia diphtheria toxoid, and acellular pertussis vaccine, adsorbed Luisa Ge SENIOR ORACLE ADF DEVELOPER-[facility] Work Phone: [facility] Payers Date Payer Category Payer Medicaid [id number] 1985 Unknown [id number] 2.16.8 [id number] 1985 Unknown [id number] 2.16. [id number] 1985 Unknown [id number] 2.16.84 0.1.715375.3.579.2.593 1985 Unknown [id number] 2.16.84 0.1.858467.3.579.2.593 1985 Unknown [id number] 2.16.84 0.1.815818.3.579.2.593 1985 Unknown [id number] 2.16.84 0.1.678396.3.579.2.593 1985 Unknown [id number] 2.16.84 0.1.852600.3.579.2.593 1985 Unknown [id number] 2.16.84 0.1.102670.3.579.2.593 1985 Unknown [id number] 2.16.84 0.1.037811.3.579.2.593 1985 Unknown [id number] 2.16.84 0.1.029866.3.579.2.593 1986 Unknown [id number] 2.16.84 0.1.078825.3.579.2.593 1986 Unknown [id number] 2.16.84 0.1.870329.3.579.2.593 1986 Unknown [id number] 2.16.84 0.1.070193.3.579.2.593 1986 Unknown [id number] 2.16.84 0.1.060096.3.579.2.593 1986 Unknown [id number] 2.16.84 0.1.196314.3.579.2.593 1958 Medicaid [id number] 1958 Medicaid [id number] 2. [id number] [place] [address] [id number] 2.16.840.1.231536.19 Social History Date Type Detail Facility Sex Assigned At [facility] Other Start: 10-17-[address] [facility] Ex-smoker [facility] End: 03-28-2017 History of [...] of medicated shampoo. Call if no improvement. [facility] Other Evaluation note 11-08-2022 Note Date & Type Note Facility 11-08-2022 Evaluation note Encounter Date Diagnosis Assessment Notes Oct, Chronic eczematous otitis externa of both ears (ICD-10 - H60.8X3) Discussed treatment. Will add drop with steroid component. Discussed proper hearing protection - possibly ear muff style. Also discussed ENT referral if needed. [facility] Other Evaluation note 06-12-2022 Note Date & [...] inside ear after shower may use chairman & chief executive officer on lowest cool setting to blow dry. Follow up with PCP or UC if no improvement in the next 2-3 days. Immediate eval for severe ear pain, severe headache, neck pain/stiffness, pain, erythema, or swelling behind the ear, fever, N/V, hearing loss, fever, or any other new or concerning symptoms. Patient verbalizes understanding and is agreeable to treatment plan [facility] Other History general Narrative - Reported Note [...] REPIAR 2017 Hospitalization History SEE SURGICAL HX [facility] Other Summary Purpose Family History No Family [...] section and content) DATE CREATED AUTHOR 02/19/2018 [facility] DATE CREATED AUTHOR AUTHOR'S ORGANIZ ATION 11/14/2018 [facility] DATE CREATED AUTHOR AUTHOR'S ORGANIZ ATION 09/17/2020 [facility] DATE CREATED AUTHOR AUTHOR'S ORGANIZ ATION 12/23/2020 [facility] DATE CREATED AUTHOR AUTHOR'S ORGANIZ ATION 10/21/2021 [facility] DATE CREATED AUTHOR AUTHOR'S ORGANIZ ATION 02/03/2023 [facility] REASON FOR VISIT (unrecogniz ed section and content) EAR PAINEar InfectionCHECK U P Care Teams (unrecognized sec tion and content) Roller Staker Relationship Specialty Start Date End Date Luisa Ge APRN-SPEECH PATHOLOGY TEACHER [address] [place] [address] ENGRAVER ORNAMENTAL DESIGN Pulmonary Medicine 06/02/20 Jamie Hardin MD [address] [place] [id number] Physician General Surgery 06/02/20 Page Faulkner M.Ed., R.D., L.D. [address] [address] Dietitian Nutrition 06/02/20 Rita Catherine MD [address] [place] [id number] Physician Obstetrics/Gynecology 06/02/20 Rishabh Hi APRN-SPEECH PATHOLOGY TEACHER [address] [place] [id number] ENGRAVER ORNAMENTAL DESIGN Anesthesiology 06/02/20 Roller Staker Relationship Specialty Start Date End Date Luisa Ge APRN-CNP [address] [place] [address] ENGRAVER ORNAMENTAL DESIGN Pulmonary Medicine 06/02/20 Jamie Hardin MD [address] [place] [address] [phone] Physician General Surgery 06/02/20 Page Faulkner M.Ed., R.D., L.D. [address] [address] Dietitian Nutrition 06/02/20 Rita Catherine MD [address] [place] [address] [phone] Physician Obstetrics/Gynecology 06/02/20 Rishabh Hi, SENIOR ORACLE ADF DEVELOPER-SPEECH PATHOLOGY TEACHER [address] [place] [address] [phone] ENGRAVER ORNAMENTAL DESIGN Anesthesiology 06/02/20 FOR RECORDS PERTAINING TO PATIENTS [...] BE BASED ON THE PRIMARY CLINICAL RECORDS. [facility]. provides no warranty or guarantee of the accuracy or completeness of information in this document.
[2024-05-08 09:07] LABS: HCG Quantitative 474 mIU/mL
[2024-05-09 04:12] LABS: Progesterone 23.1 ng/mL (.)
== END 2024-05-08 07:37 | disposition home or self-care (01) ==
LOC: LAB 07:38
PROVIDERS: PCP Family Medicine
DX: O09.811 Supervision of pregnancy resulting from assisted reproductive technology, first trimester (principal)
CPT/HCPCS: 36415; 82670; 84144; 84702

== ENCOUNTER 2024-05-19 13:40 | Emergency (ER) | payer BC, SELFPAY ==
[2024-05-19 13:44] VITALS: BP 149/67; PULSE 66; TEMP 36.4; O2SAT 96; BMI 25.9
--- OUTSIDE RECORDS SUMMARY | 2024-05-19 13:49 | XMS_ITS | CCD ---
Author Organization [facility] Care Team Providers Care Inspector Final Assembly Conveyor Line Name Role Phone No Family Physician Unavailable Unavailable No Family Physician Unavailable Unavailable NO FAMILY DOCTOR, NO FAMILY DOCTOR Primary Care Unavailable YANIRA MARTINO Attending Unavailable Swathi DANIEL Referring Unavailab le PROVIDER, UNKNOWN Attending Unavailable PROVIDER, UNKNOWN Admitting Unavailable WILSON CASTRO Primary Care Unavailable Yolis James Unavailable Joo PACKER, Luisa Unavailable Lashawn MESSER, Jamie Unavailable [phone] Kaushik West, R.Keyana., L.D., Page Unavailable Florin MESSER, Rita Unavailable Sussy PACKER, Rishabh NAlexia Unavailable Jada Oliveros Unavailable Joo PACKER, Luisa Unavailable Lashawn MESSER, Jamie Unavailable Kaushik West, R.Keyana., L.D., Page Unavailable Florin MESSER, Rita Unavailable Sussy PACKER, Rishabh N. Unavailable ALVARO ., DR GOSS Attending Unavailable ALVARO ., DR GOSS Admitting Unavailable ARLIN, DR JADA Corey Primary Care Unavailable ALVARO ., DR GOSS Consulting Unavailable REQUEST, DR GARAY LISTED Primary Care Unavaila ble ALVARO ., DR GOSS Attending Unavailable LYONS, DR YANIRA Steele Consulting Unavailable ALVARO ., [...] adverse reactions to drug (disorder) [address] [facility] Repository Medications Current Medications Medication Drug [...] / neomycin 3.5 mg/ml / polymyxin b 23430 unt/ml otic solution (1 source) Aminoglycoside Antibacterial, [...] HCGon 01-17-2023 HCG QUANT <1 Normal [facility] Comment on above: Performed By: #### P REGQNT #### [facility] [address] [place] [address] Dr. Meghan Vital HCG RANGE SEE BELOW Normal [facility] Comment on above: Result Comment: 5-50 0.2-1 WEEK 50-500 1-2 WEEKS 100-5,000 2-3 WEEKS 500-10,000 3-4 WEEKS 1,000-50,000 4-5 WEEKS 10,000-100,000 5-6 WEEKS 15,000-200,000 6-8 WEEKS 10,000-100,000 2-3 MONTHS Performed By: #### P REGQNT #### [facility] [address] [place] [address] Dr. Meghan Vital PROGESTERONEon 01-10-2023 Progesterone 8.9 ng/mL Normal [facility] Comment on above: Result Comment: Foll icular phase 0.1 - 0.9 Luteal phase 1.8 - 23.9 Ovulation phase 0.1 - 12.0 First trimester 11.0 - 44.3 Second trimester 25.4 - 83.3 Third trimester 58.7 - 214.0 Postmenopausal 0.0 - 0.1 Performed By: #### H CGSUB #### [facility] [address] [place] [address] Dr. Meghan Vital PAP ACOG PANEL 2: 30 to 65on 11-30-2022 . . Normal [facility] Comment on above: Result Comment: Perf ormed at: WB Performed By: #### [id number] #### [facility] [address] [place] [address] Dr. Meghan Vital Age Gdln ACOG Testing 30-[address] [facility] Comment on above: Performed By: #### [id number] #### [facility] [address] [place] [address] Dr. Meghan Vital DIAGNOSIS: Comment Normal [facility] Comment on above: Result Comment: NEGA TIVE FOR INTRAEPITHELIAL LESION OR MALIGNANCY. Performed at: WB Performed By: #### 4 [id number] #### [facility] [address] [place] [address] Dr. Meghan Vital HPV Aptima Positive Abnormal Negative [facility] Comment on above: Result Comment: This nucleic acid amplification test detects fourteen high-risk HPV types (16,18,31,33,35,39,45,51,52,56,58,59,66,68) without differentiation. Performed at: =G Performed By: #### [id number] #### [facility] [address] [place] [address] Dr. Meghan Vital HPV Genotype 16 Negative Normal Negative [facility] Comment on above: Performed By: #### [id number] #### [facility] [address] [place] [address] Dr. Meghan Vital HPV Genotype 18,45 Negative Normal Negative [facility] Comment on above: Performed By: #### [id number] #### [facility] [address] [place] [address] Dr. Meghan Vital HPV Genotype Reflex Comment Normal [facility] Comment on above: Result Comment: Aiyana iqbal, see HPV Genotype results. Performed at: WB Performed By: #### [id number] #### [facility] [address] [place] [address] Dr. Meghan Vital Methodology: Comment Normal [facility] Comment on above: Result Comment: This liquid based ThinPrep(R) pap test was screened with the use of an image guided system. Performed at: WB Performed By: #### [id number] #### [facility] [address] [place] [address] Dr. Meghan Vital Note: Comment Normal [facility] Comment on above: Result Comment: The Pap smear is a screening test designed to aid in the detection of premalignant and malignant conditions of the uterine cervix. It is not a diagnostic procedure and should not be used as the sole means of detecting cervical cancer. Both false-positive and false-negative reports do occur. . Performed at: WB Performed By: #### [id number] #### [facility] [address] [place] [address] Dr. Meghan Vital Performed by: Comment Normal [facility] Comment on above: Result Comment: Rahul Kincaid, Business Services Sales Agent (ASCP) Performed at: WB Performed By: #### [id number] #### [facility] [address] [place] [address] Dr. Meghan Vital Specimen adequacy: Comment Normal [facility] Comment on above: Result Comment: Sati sfactory for evaluation. Endocervical and/or squamous metaplastic cells (endocervical component) are present. Performed at: WB Performed By: #### [id number] #### [facility] [address] [place] [address] Dr. Meghan Vital ANTI-MULLERIAN HORMONEon Anti-Mullerian Hormone (AMH) 3.03 ng/mL Normal [facility] Comment on above: Result Comment: For assays employing antibodies, the possibility exists for interference by heterophile antibodies in the samples.1 1.Bailey Dickosn Interferences in Immunoassays - still a threat. Clin. Chem. 2000; 46: 9654-4364. This test was developed and its performance characteristics determined by [employer]. It has not been cleared or approved by the Food and Drug Administration. Reference Range: Females 36 - 40y: 0.42 - 8.34 Median 1.69 AMH concentrations of >= 1.06 ng/mL is correlated with a better response to ovarian stimulation, produced more retrievable oocytes and higher odds of live according to Holland et al. Fertility and Sterility. 2010: 94:6228-0846. The current AMH test method correlates with [...] tumor. Performed By: #### H CGSUB #### [facility] [address] [place] [address] Dr. Meghan Vital CBC AUTO DIFFon 11-21-2022 BASO # 0.1 103/ul Normal 0.0-0.1 [facility] Comment on above: Performed By: #### H CGSUB #### [facility] [address] [place] [address] Dr. Meghan Vital Basophils/100 WBC (Bld) 0.8 % Normal 0.2-2.0 [facility] Comment on above: Performed By: #### H CGSUB #### [facility] [address] [place] [address] Dr. Meghan Vital EO # 0.2 103/ul Normal 0.0-0.7 [facility] Comment on above: Performed By: #### H CGSUB #### [facility] [address] [place] [address] Dr. Meghan Vital Eosinophils/100 WBC (Bld) 2.3 % Normal 0.9-7.0 [facility] Comment on above: Performed By: #### H CGSUB #### [facility] [address] [place] [address] Dr. Meghan Vital Erythrocyte distribution width (RBC) [Ratio] 13.3 % Normal 11.0-15.0 [facility] Comment on above: Performed By: #### H CGSUB #### [facility] [address] [place] [address] Dr. Meghan Vital Hematocrit (Bld) [Volume fraction] 42.4 % Normal 36.0-48.0 [facility] Comment on above: Performed By: #### H CGSUB #### [facility] [address] [place] [address] Dr. Meghan Vital Hemoglobin (Bld) [Mass/Vol] 13.6 g/dL Normal 12.0-16.0 [facility] Comment on above: Performed By: #### H CGSUB #### [facility] [address] [place] [address] Dr. Meghan Vital IG # 0.01 10e3/ul Normal 0.00-0.03 [facility] Comment on above: Performed By: #### H CGSUB #### [facility] [address] [place] [address] Dr. Meghan Vital IG % 0.1 % Normal 0.0-0.5 [facility] Comment on above: Performed By: #### H CGSUB #### [facility] [address] [place] [address] Dr. Meghan Vital LYMPH # 3.9 103/ul Critically high 1.2-3.8 [facility] Comment on above: Performed By: #### H CGSUB #### [facility] [address] [place] [address] Dr. Meghan Vital Lymphocytes/100 WBC (Bld) 42.7 % Normal 20.5-60.0 [facility] Comment on above: Performed By: #### H CGSUB #### [facility] [address] [place] [address] Dr. Meghan Vital MANUAL DIFF REQ NO Normal [facility] Comment on above: Performed By: #### H CGSUB #### [facility] [address] [place] [address] Dr. Meghan Vital MCH (RBC) [Entitic mass] 27.4 pg Normal 26.7-34.0 [facility] Comment on above: Performed By: #### H CGSUB #### [facility] [address] [place] [address] Dr. Meghan Vital MCHC (RBC) [Mass/Vol] 32.1 g/dL Normal 29.9-35.2 [facility] Comment on above: Performed By: #### H CGSUB #### [facility] [address] [place] [address] Dr. Meghan Vital MCV (RBC) [Entitic vol] 85.3 fL Normal 81.0-99.0 [facility] Comment on above: Performed By: #### H CGSUB #### [facility] [address] [place] [address] Dr. Meghan Vital MONO # 0.6 103/ul Normal 0.3-0.8 [facility] Comment on above: Performed By: #### H CGSUB #### [facility] [address] [place] [address] Dr. Meghan Vital Monocytes/100 WBC (Bld) 6.1 % Normal 1.7-12.0 [facility] Comment on above: Performed By: #### H CGSUB #### [facility] [address] [place] [address] Dr. Meghan iVtal NEUT # 4.3 103/ul Normal 1.4-6.5 [facility] Comment on above: Performed By: #### H CGSUB #### [facility] [address] [place] [address] Dr. Meghan Vital Neutrophils/100 WBC (Bld) 48.0 % Normal 43.0-75.0 [facility] Comment on above: Performed By: #### H CGSUB #### [facility] [address] [place] [address] Dr. Meghan Vital Platelet mean volume (Bld) [Entitic vol] 11.5 fL Normal 9.5-13.5 [facility] Comment on above: Performed By: #### H CGSUB #### [facility] [address] [place] [address] Dr. Meghan Vital PLT 251 103/ul Normal 150-450 [facility] Comment on above: Performed By: #### H CGSUB #### [facility] [address] [place] [address] Dr. Meghan Vital RBC 4.97 106/ul Normal 4.20-5.40 [facility] Comment on above: Performed By: #### H CGSUB #### [facility] [address] [place] [address] Dr. Meghan Vital WBC 9.0 103/ul Normal 4.0-11.0 [facility] Comment on above: Performed By: #### H CGSUB #### [facility] [address] [place] [address] Dr. Meghan Vital FREE T4on 11-21-2022 Free T4 [Mass/Vol] 1.03 ng/dL Normal 0.76-1.46 [facility] Comment on above: Performed By: #### F T4 #### [facility] [address] [place] [address] Dr. Meghan Vital GLYCOHEMOGLOBIN A1Con 2022 ADA RECOMMENDATION SEE BELOW Normal [facility] Comment on above: Result Comment: ADA RECOMMENDED LIMIT 4.0 - 6.0 ADA THERAPEUTIC TARGET < 7.0 ACTION SUGGESTED > 7.0 Performed By: #### H CGSUB #### [facility] [address] [place] [address] Dr. Meghan Vital Glucose [Mass/Vol] 97 mg/dL Normal [facility] Comment on above: Performed By: #### H CGSUB #### [facility] [address] [place] [address] Dr. Meghan Vital HbA1c (Bld) [Mass fraction] 5.0 % Normal 4.5-6.2 [facility] Comment on above: Performed By: #### H CGSUB #### [facility] [address] [place] [address] Dr. Meghan Vital TSHon 11-21-2022 TSH 1.636 uIU/mL Normal 0.358-3.74 0 [facility] Comment on above: Performed By: #### H CGSUB #### [facility] [address] [place] [address] Dr. Meghan Vital PROGESTERONEon 10-12-2022 Progesterone 6.8 ng/mL Normal [facility] Comment on above: Result Comment: Foll icular phase 0.1 - 0.9 Luteal phase 1.8 - 23.9 Ovulation phase 0.1 - 12.0 First trimester 11.0 - 44.3 Second trimester 25.4 - 83.3 Third trimester 58.7 - 214.0 Postmenopausal 0.0 - 0.1 Performed By: #### H CGSUB #### [facility] [address] [place] [address] Dr. Meghan Vital CBC AUTO DIFFon 09-23-2022 BASO # 0.1 103/ul Normal 0.0-0.1 [facility] Comment on above: Performed By: #### C BC #### [facility] [address] [place] [address] Dr. Meghan Vital Basophils/100 WBC (Bld) 1.2 % Normal 0.2-2.0 [facility] Comment on above: Performed By: #### C BC #### [facility] [address] [place] [address] Dr. Meghan Vital EO # 0.2 103/ul Normal 0.0-0.7 [facility] Comment on above: Performed By: #### C BC #### [facility] [address] [place] [address] Dr. Meghan Vital Eosinophils/100 WBC (Bld) 2.4 % Normal 0.9-7.0 [facility] Comment on above: Performed By: #### C BC #### [facility] [address] [place] [address] Dr. Meghan Vital Erythrocyte distribution width (RBC) [Ratio] 13.1 % Normal 11.0-15.0 [facility] Comment on above: Performed By: #### C BC #### [facility] [address] [place] [address] Dr. Meghan Vital Hematocrit (Bld) [Volume fraction] 38.1 % Normal 36.0-48.0 [facility] Comment on above: Performed By: #### C BC #### [facility] [address] [place] [address] Dr. Meghan Vital Hemoglobin (Bld) [Mass/Vol] 13.4 g/dL Normal 12.0-16.0 [facility] Comment on above: Performed By: #### C BC #### [facility] [address] [place] [address] Dr. Meghan Vital IG # 0.01 10e3/ul Normal 0.00-0.03 [facility] Comment on above: Performed By: #### C BC #### [facility] [address] [place] [address] Dr. Meghan Vital IG % 0.1 % Normal 0.0-0.5 [facility] Comment on above: Performed By: #### C BC #### [facility] [address] [place] [address] Dr. Meghan Vital LYMPH # 3.4 103/ul Normal 1.2-3.8 [facility] Comment on above: Performed By: #### C BC #### [facility] [address] [place] [address] Dr. Meghan Vital Lymphocytes/100 WBC (Bld) 45.2 % Normal 20.5-60.0 [facility] Comment on above: Performed By: #### C BC #### [facility] [address] [place] [address] Dr. Meghan Vital MANUAL DIFF REQ NO Normal [facility] Comment on above: Performed By: #### C BC #### [facility] [address] [address] [address] Meghan Vital MCH (RBC) [Entitic mass] 27.8 pg Normal 26.7-34.0 [facility] Comment on above: Performed By: #### C BC #### [facility] [address] [place] [address] Dr. Meghan Vital MCHC (RBC) [Mass/Vol] 35.2 g/dL Normal 29.9-35.2 [facility] Comment on above: Performed By: #### C BC #### [facility] [address] [place] [address] Dr. Meghan Vital MCV (RBC) [Entitic vol] 79.0 fL Critically low 81.0-99.0 [facility] Comment on above: Performed By: #### C BC #### [facility] [address] [place] [address] Dr. Meghan Vital MONO # 0.4 103/ul Normal 0.3-0.8 [facility] Comment on above: Performed By: #### C BC #### [facility] [address] [place] [address] Dr. Meghan Vital Monocytes/100 WBC (Bld) 5.3 % Normal 1.7-12.0 [facility] Comment on above: Performed By: #### C BC #### [facility] [address] [place] [address] Dr. Meghan Vital NEUT # 3.4 103/ul Normal 1.4-6.5 [facility] Comment on above: Performed By: #### C BC #### [facility] [address] [place] [address] Dr. Meghan Vital Neutrophils/100 WBC (Bld) 45.8 % Normal 43.0-75.0 [facility] Comment on above: Performed By: #### C BC #### [facility] [address] [place] [address] Dr. Meghan Vital Platelet mean volume (Bld) [Entitic vol] 11.4 fL Normal 9.5-13.5 [facility] Comment on above: Performed By: #### C BC #### [facility] [address] [address] [address] Meghan Vital PLT 280 103/ul Normal 150-450 [facility] Comment on above: Performed By: #### C BC #### [facility] [address] [address] [address] Meghan Vital RBC 4.82 106/ul Normal 4.20-5.40 [facility] Comment on above: Performed By: #### C BC #### [facility] [address] [address] [address] Meghan Vital WBC 7.5 103/ul Normal 4.0-11.0 [facility] Comment on above: Performed By: #### C BC #### [facility] [address] [place] [address] Dr. Meghan Vital FREE T4on 09-23-2022 Free T4 [Mass/Vol] 1.17 ng/dL Normal 0.76-1.46 [facility] Comment on above: Performed By: #### H CGSUB #### [facility] [address] [place] [address] Dr. Meghan Vital GLYCOHEMOGLOBIN A1Con 2022 ADA RECOMMENDATION SEE BELOW Normal [facility] Comment on above: Result Comment: ADA RECOMMENDED LIMIT 4.0 - 6.0 ADA THERAPEUTIC TARGET < 7.0 ACTION SUGGESTED > 7.0 Performed By: #### A 1C #### [facility] [address] [place] [address] Dr. Meghan Vital Glucose [Mass/Vol] 100 mg/dL Normal [facility] Comment on above: Performed By: #### A 1C #### [facility] [address] [place] [address] Dr. Meghan Vital HbA1c (Bld) [Mass fraction] 5.1 % Normal 4.5-6.2 [facility] Comment on above: Performed By: #### A 1C #### [facility] [address] [place] [address] Dr. Meghan Vital TSHon 01-27-2023 TSH 1.235 uIU/mL Normal 0.358-3.74 0 [facility] Comment on above: Performed By: #### T SH #### [facility] [address] [place] [address] Dr. Meghan Vital PREG QUANT HCGon 07-12-2022 HCG QUANT 1 mIU/mL Normal [facility] Comment on above: Performed By: #### P REGQNT #### [facility] [address] [place] [address] Dr. Meghan Vital HCG RANGE SEE BELOW [facility] Comment on above: Result Comment: 5-50 0.2-1 WEEK 50-500 1-2 WEEKS 100-5,000 2-3 WEEKS 500-10,000 3-4 WEEKS 1,000-50,000 4-5 WEEKS 10,000-100,000 5-6 WEEKS 15,000-200,000 6-8 WEEKS 10,000-100,000 2-3 MONTHS Performed By: #### P REGQNT #### [facility] [address] [place] [address] Dr. Meghan Vital XR HYSTEROSALPINGOGRAMon XR HYSTEROSALPINGOGRAM [...] by: YADIRA BAKER Date: 2022-07-12 12:12 Normal [facility] PROGESTERONEon 06-30-2022 Progesterone 20.9 ng/mL Normal [facility] Comment on above: Result Comment: Foll icular phase 0.1 - 0.9 Luteal phase 1.8 - 23.9 Ovulation phase 0.1 - 12.0 First trimester 11.0 - 44.3 Second trimester 25.4 - 83.3 Third trimester 58.7 - 214.0 Postmenopausal 0.0 - 0.1 Performed By: #### P PHIL #### [facility] [address] [address] [address] Meghan Vital HCG-BETA SUBUNIT QUANTon hCG,Beta Subunit,Qnt,Serum <1 Normal [facility] Comment on above: Result Comment: Fema le (Non-) 0 - 5 (Postmenopausal) 0 - 8 . Female () Weeks of Gestation 3 6 - 71 4 10 - 750 5 217 - 7138 6 158 - 97837 7 [phone] -448640 8 17001 -196988 9 85796 -200625 10 63261 -762634 12 72457 -852148 14 02323 - 02859 15 17712 - 32682 16 9092 - 90345 17 8175 - 50971 18 8099 - 12060 Jeremy ECLIA methodology Performed By: #### H CGSUB #### [facility] [address] [place] [address] Dr. Meghan Vital HCG-BETA SUBUNIT QUANTon hCG,Beta Subunit,Qnt,Serum <1 Normal [facility] Comment on above: Result Comment: Fema le (Non-) 0 - 5 (Postmenopausal) 0 - 8 . Female () Weeks of Gestation 3 6 - 71 4 10 - 750 5 217 - 7138 6 158 - 15382 7 3697 -322418 8 44321 -951101 9 99970 -668091 10 43656 -865198 12 88838 -612770 14 38762 - 64744 15 49486 - 09307 16 9017 - 53431 17 8175 - 15419 18 8099 - 51736 Jeremy ECLIA methodology Performed By: #### H CGSUB #### [facility] [address] [place] [address] Dr. Meghan Vital PROGESTERONEon 02-26-2022 Progesterone <0.1 Normal [facility] Comment on above: Result Comment: Foll icular phase 0.1 - 0.9 Luteal phase 1.8 - 23.9 Ovulation phase 0.1 - 12.0 First trimester 11.0 - 44.3 Second trimester 25.4 - 83.3 Third trimester 58.7 - 214.0 Postmenopausal 0.0 - 0.1 Performed By: #### P PHIL #### [facility] [address] [place] [address] Dr. Meghan Vital US PELVIS AND TRANSVAGon [...] YANIRA MICHAEL Date: 2022-02-24 16:57 Normal [facility] Ambulatory Clinical Summaryo n 12-22-2020 Ambulatory Clinical Summary {[id number]:61 [id number] [facility]/Clini c Noteon 12-22-2020 [...] documented 3008F Office Visit Level 2 Est 71677 2. Tobacco use (Z72.0: Tobacco use) We [...] smoker 1034F Office Visit Level 2 Est 63457 3. Hordeolum externum right lower eyelid (H00.012: Hordeolum externum right lower eyelid) Will treat with bacitracin ointment. May use warm compresses 3-4 x day. FU with PCP if not gradually improving over next 7 days, sooner if significantly spreading erythema, edema, warmth, fever. Patient verbalized understanding of tx plan Ordered: Office Visit Level 2 Est 34958 Orders: erythromycin ophthalmic, 0.5 in, OPTH, QID [...] 11/17/2020 Family History Family history is negative [facility] Comment on above: Result Comment: Elec tronically [...] methods. Where to find more information ? [place] [employer]: www.lung.org ? [place] [employer]: www.cancer.org Summary ? Smoking cigarettes [...] 09/21/2005 Document Revised: 11/15/2018 Document Reviewed: 08/18/2017 [employer] Patient Education ? 2019 [employer]. [facility] Provider Letteron 12-22-2020 Provider Letter (Inserted Image. Mary ble to display) December 22, 2020 FARTUN RODRÍGUEZ [address] [place] [phone] FARTUN RODRÍGUEZ 1985 To Whom It May Concern, Please excuse above patient from work. 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 We encourage you to visit www.[employer].gov access to helpful resources including free telephone [...] Tobacco Use:. Cigarettes, Yes, 11/17/2020 [facility] Comment on above: Result Comment: Elec tronically [...] to help relieve symptoms, such as: ? Kenu-zyn-gcxwfdw cold medicines. ? Cough suppressants. Coughing is [...] other clear broths. General instructions ? 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 ? Avoid touching your mouth, face, eyes, [...] common infecti (more content not included)... [facility] Provider Letteron 11-17-2020 Provider Letter (Inserted Image. Mary ble to display) November 17, 2020 FARTUN RODRÍGUEZ [address] [place] [id number] FARTUN RODRÍGUEZ 1985 To Whom It May Concern, Please excuse above patient from work. Date of Illness: From: 11/17/2020 To: 11/18/2020 May Return to Work On:11/19/2020 Comments: Patient above was seen at [facility] on 11/17/2020. Sincerely, [facility] [address] [place] [address] [facility] Provider Letteron 09-22-2020 Provider Letter (Inserted Image. Mary ble to display) September 22, 2020 FARTUN RODRÍGUEZ [address] [place] [id number] FARTUN RODRÍGUEZ 1985 To Whom It May Concern, Please excuse above patient from work. Date of Illness: From: 09/22/2020 May Return to Work On:09/23/2020 Comments: The above patient may return back to work on the above date. Sincerely, [facility] [address] [place] [address] [facility] SURGICAL PATH REPORTon 07-31 SURGICAL PATH REPORT [facility] Department of Pathology [address] [place] [phone] Name: FARTUN RODRÍGUEZ : 1985 Financial [id number] Number: Gender: Female Location: [facility] Admit 34 years Attending ANA PAULA JOHN Age: Provider: Ordering ANA PAULA JOHN Provider: Consulting: Surgical Pathology Report ACCESSION: COLLECTED DATE/TIME: RECEIVED DATE/TIME: PATHOLOGIST: [id number] 07/30/2020 13:19 EST 07/30/2020 13:19 EST SHADE MULLER MD Final Diagnosis Report for [facility], [place] [employer]: - [place]OR[place]ILLI. [...] cm. There are no grossly identifiable parts. Supervisor Microfilm Duplicating Unit sections are submitted in three cassettes. MP/ekaterina 07/30/2020 Tissue pathology report for: [facility], [address] [place] [id number]; Print Date/ 07/31/2020 15:05 EST Number: Time: [facility] Department of Pathology [address] [place] [phone] Name: FARTUN RODRÍGUEZ : 1985 Financial [id number] Number: Gender: Female Location: [facility] Admit 34 years Attending ANA PAULA JOHN Age: Provider: Ordering ANA PAULA JOHN Provider: Consulting: Surgical Pathology Report ACCESSION: COLLECTED DATE/TIME: RECEIVED DATE/TIME: PATHOLOGIST: [id number] 07/30/2020 13:19 EST 07/30/2020 13:19 EST YOHANA MESSER, SHADE Gross Description PATHOLOGY SERVICES PROVIDED BY [employer] (CLIA #[id number]) in cooperation with [facility] at [address] [place] [address] (CLIA #[id number]) Codes CPT CODE: 92021 Print Date07/31/2020 15:05 EST Number: Time: Normal [facility] Comment on above: Performed By: #### 9 [id number] #### [facility] Services [address] [place] [address] Upholsterer Inside: Shade Muller MD Consenton 05-29-2020 Consent [id number]:127 [facility] Registrationon 05-29-2020 Registration [id number]:127 [facility] Influenza A,Bon 11-08-2018 Influenza A, Rapid Ag Negative Normal Negative [facility] Comment on above: Performed By: #### 5 [id number] #### [facility] [address] [place] [address] Influenza B, Rapid Ag Negative Normal Negative [facility] Comment on above: Performed By: #### 5 [id number] #### [facility] [address] [place] [address] Urinalysis with Reflex Cultu reon 11-08-2018 Appearance Nom (U) Clear Normal Clear [facility] Comment on above: Performed By: #### U ARFX #### [facility] [address] [place] [address] Ascorbic Acid Negative Normal Negative [facility] Comment on above: Performed By: #### U ARFX #### [facility] [address] [place] [address] Automated Urine Microscopy Not indicated Normal [facility] Comment on above: Performed By: #### U ARFX #### [facility] [address] [place] [address] Bilirubin mass conc Negative Normal Negative [facility] Comment on above: Performed By: #### U ARFX #### [facility] [address] [place] [address] Blood Negative Normal Negative [facility] Comment on above: Performed By: #### U ARFX #### [facility] [address] [place] [address] Color Nom (U) Yellow Normal [facility] Comment on above: Performed By: #### U ARFX #### [facility] [address] [place] [address] Glucose mass conc 50 mg/dL Abnormal Negative [facility] Comment on above: Performed By: #### U ARFX #### [facility] [address] [place] [address] Ketones Ql (U) Negative Normal Negative [facility] Comment on above: Performed By: #### U ARFX #### [facility] [address] [place] [address] Leukocytes Esterase Negative Normal Negative [facility] Comment on above: Performed By: #### U ARFX #### [facility] [address] [place] [address] Nitrite Ql (U) Negative Normal Negative [facility] Comment on above: Performed By: #### U ARFX #### [facility] [address] [place] [address] pH (Bld) 5.0 Normal 5.0-9.0 [facility] Comment on above: Performed By: #### U ARFX #### [facility] [address] [place] [address] Protein mass conc (U) Negative Normal Negative [facility] Comment on above: Performed By: #### U ARFX #### [facility] [address] [place] [address] Specific gravity Relative Density (U) 1.026 Normal 1.003-1.03 5 [facility] Comment on above: Performed By: #### U ARFX #### [facility] [address] [place] [address] Urobilinogen Qn (U) <2.0 Normal Negative [facility] Comment on above: Result Comment: Due to a manufacturing issue, low positive urobilinogen results may be falsely positive. Correlate with urine bilirubin and additional clinical/laboratory findings to assess the risk of hemolytic anemia or liver disease. If clinically indicated, repeat testing with an alternate method is available by contacting the laboratory within 24 hours. Performed By: #### U ARFX #### [facility] [address] [place] [address] STREP GROUP A AG QUALon 08-29 STREP GROUP A AG QUAL STREP GROUP A AG Q UAL GROUP A STREP NEGATIVE FOR STREPTOCOCCUS GROUP A ANTIGEN THROAT CULTURE: REFERRED TO [facility] FOR CULTURE CONFIRMATION CULTURE RESULT: CULTURE NEGATIVE FOR BETA STREP GROUP A [facility] Comment on above: Performed By: #### M STREPA ####[facility] [id number] [place] [address] ED Provider Reporton 018 ED Provider Report [facility] [place], [place] [address]Patient Name: FARTUN RODRÍGUEZ : [birth year]Acct #: [id number] Unit #: [id number] ER Arrival Date: 09/21/17 ER Physician: Yoshi [...] illicit drug usePast Social HistorySmoking Status:FORMER SMOKERTobacco UseCIGARETTESPacks/Ooa5Ojzy :LESS THAN 1 YEAR AGOReview of SystemsReview [...] Resp B/P B/P Pulse O2 O2 Flow BuD0Trej Ox Delivery Rate01/25 1712 36.5 83 18 [...] to follow-up with PCP.Disposition DecisionDischargeDispositio n Date09/21/17Decision [id number] obiologyDate/Time Procedure - StatusSource Uzeokc18/25 1745 Group A Streptococcus Screen (BETHANY) - [...] Cali Gregory P. DO 09/22/17 1146 [facility] Vital Signs Date Time Vital Sign Value Performing Clinician Facility 05-31-2023 09:00-0400 Body height 162.56 cm Jada Oliveros Other [facility] Other 05-31-2023 09:00-0400 Body mass index (BMI) [Ratio] 24.54 kg/m2 Jada Oliveros Other [facility] Other 05-31-2023 09:00-0400 Body weight 64.86 kg Jada Oliveros Other [facility] Other 05-31-2023 09:00-0400 Diastolic blood pressure 65 mm[Hg] Jada Oliveros Other [facility] Other 05-31-2023 09:00-0400 Systolic blood pressure 98 mm[Hg] Jada Oliveros Other [facility] Other 11-08-2022 16:15-0400 Body height 162.56 cm Jada Oliveros Other [facility] Other 11-08-2022 16:15-0400 Body mass index (BMI) [Ratio] 25.4 kg/m2 Jada Oliveros Other [facility] Other 11-08-2022 16:15-0400 Body temperature 97.4 [degF] Jada Oliveros Other [facility] Other 11-08-2022 16:15-0400 Body weight 67.13 kg Jada Oliveros Other [facility] Other 11-08-2022 16:15-0400 Diastolic blood pressure 74 mm[Hg] Jada Oliveros Other [facility] Other 11-08-2022 16:15-0400 SaO2% (BldA) [Mass fraction] 99 % Jada Oliveros Other [facility] Other 11-08-2022 16:15-0400 Systolic blood pressure 120 mm[Hg] Jada Oliveros Other [facility] Other 06-12-2022 12:15-0400 Body height 162.56 cm Yolis James Other [facility] Other 06-12-2022 12:15-0400 Body mass index (BMI) [Ratio] 25.74 kg/m2 Yolis James Other [facility] Other 06-12-2022 12:15-0400 Body temperature 98.1 [degF] Yoils James Other [facility] Other 06-12-2022 12:15-0400 Body weight 68.04 kg Yolis James Other [facility] Other 06-12-2022 12:15-0400 Diastolic blood pressure 61 mm[Hg] Yolis James Other [facility] Other 06-12-2022 12:15-0400 Respiratory rate 18 /min Yolis James Other [facility] Other 06-12-2022 12:15-0400 SaO2% (BldA) [Mass fraction] 100 % Yolis James Other [facility] Other 06-12-2022 12:15-0400 Systolic blood pressure 108 mm[Hg] Yolis James Other [facility] Other Encounters Encounter Date Encounter Type Care Provider Facility Start: 05-31-2023 End: 05-31-2023 ambulatory Jada Oliveros Other [facility] Other Start: 05-31-2023 Office outpatient visit 15 minutes Jada Oliveros [facility] Start: 01-17-2023 End: 01-25-[address] ANA PAULA JOHN . Facility:[facility] Start: 01-09-2023 End: 01-10-[address] ANA PAULA JOHN . Facility:[facility] Start: 11-26-2022 Letter encounter Luisa Ge APRN-REEL WINDER Work Phone: [facility] Start: 11-21-2022 End: 11-21-[address] ANA PAULA JOHN . Facility:[facility] Start: 11-21-2022 End: 11-22-[address] ANA PAULA JOHN . Facility:[facility] Start: 11-08-2022 End: 11-08-2022 ambulatory Jada Oliveros Other [facility] Other Start: 11-08-2022 Office outpatient visit 15 minutes Jada Oliveros [facility] Start: 10-11-2022 End: 10-12-[address] ANA PAULA JOHN . Facility:[facility] Start: 09-23-2022 End: 09-24-[address] ANA PAULA JOHN . Facility:[facility] Start: 09-04-2022 Letter encounter Luisa Ge APRN-REEL WINDER [facility] Start: 07-12-2022 End: 07-12-[address] ANA PAULA JOHN . Facility:[facility] Start: 06-29-2022 End: 06-30-[address] ANA PAULA JOHN . Facility:[facility] Start: 06-12-2022 End: 06-12-2022 ambulatory Yolis James Other [facility] Start: 06-12-2022 Office outpatient ne w 20 minutes Yolis James [facility] Start: 05-05-[address] ANA PAULA JOHN . Facili ty:[facility] Start: 04-27-2022 End: 04-28-[address] ANA PAULA JOHN . Facility:[facility] Start: 03-23-2022 End: 03-24-[address] ANA PAULA JOHN . Facility:[facility] Start: 02-25-2022 End: 02-26-[address] ANA PAULA JOHN . Facility:[facility] Start: 02-24-2022 End: 02-25-[address] NONE LISTED REQUEST Facility: Start: 05-11-2020 [facility] Start: 11-07-2018 End: 11-08-2018 Emergency department patient visit NO FAMILY DOCTOR NO FAMILY DOCTOR Facility:[facility] Start: 09-21-2017 Emergency department patient visit No Family Physician Facility:[facility] Procedures Date Procedure Procedure Detail Performing Clinician Start: 07-08-2019 Microscopic observat ion [Identifier] in Cervix by Cyto stain Luisa Ge EMAIL MARKETING MANAGER-REEL WINDER Work Phone: Plan of Treatment Date Care Activity Detail Author Start: 2036 Shingles (RZV) Vacci ne (1 of 2) Shingles (RZV) Vaccine (1 of 2) [facility] Start: 06-26-2023 Tetanus vaccination Tetanus (T d or Tdap) Booster [facility] Start: 07-08-2022 Screening for malign ant neoplasm of cervix Pap Smear [facility] Start: 05-28-2022 Influenza vaccination Influenza Vacc ine (#1) [facility] Start: 02-23-1987 COVID-19 Vaccine (#1) COVID-19 Vacci ne (#1) [facility] Start: 1985 Screening for malign ant neoplasm of breast Mammography shared decision making (35 through 39 years) [facility] Immunizations Immunization Date Immunization Notes Care Provider Ubaldo araujo 10-23-2013 tuberculin skin test ; purified protein derivative solution, intradermal Luisa Ge EMAIL MARKETING MANAGER-REEL WINDER Work Phone: [facility] 06-26-2013 tetanus toxoid, redu thalia diphtheria toxoid, and acellular pertussis vaccine, adsorbed Luisa Ross EMAIL MARKETING MANAGER-REEL WINDER Work Phone: [facility] 05-08-2013 human papilloma viru s vaccine, quadrivalent Luisa Ge EMAIL MARKETING MANAGER-REEL WINDER Work Phone: [facility] 01-10-2013 human papilloma viru s vaccine, quadrivalent Luisa Ross EMAIL MARKETING MANAGER-REEL WINDER Work Phone: [facility] 11-15-2012 human papilloma viru s vaccine, quadrivalent Luisa Joo EMAIL MARKETING MANAGER-REEL WINDER Work Phone: [facility] 10-16-2010 tetanus toxoid, redu thalia diphtheria toxoid, and acellular pertussis vaccine, adsorbed Luisa Ge EMAIL MARKETING MANAGER-[facility] Work Phone: [facility] Payers Date Payer Category Payer Medicaid [id number] 1985 Unknown [id number] 2.16.8 [id number] 1985 Unknown [id number] 2.16. [id number] 1985 Unknown [id number] 2.16.84 0.1.599502.3.579.2.593 1985 Unknown [id number] 2.16.84 0.1.177219.3.579.2.593 1985 Unknown [id number] 2.16.84 0.1.082469.3.579.2.593 1985 Unknown [id number] 2.16.84 0.1.784624.3.579.2.593 1985 Unknown [id number] 2.16.84 0.1.747850.3.579.2.593 1985 Unknown [id number] 2.16.84 0.1.317141.3.579.2.593 1985 Unknown [id number] 2.16.84 0.1.219900.3.579.2.593 1986 Unknown [id number] 2.16.84 0.1.036334.3.579.2.593 1986 Unknown [id number] 2.16.84 0.1.284596.3.579.2.593 1986 Unknown [id number] 2.16.84 0.1.158795.3.579.2.593 1986 Unknown [id number] 2.16.84 0.1.742239.3.579.2.593 1986 Unknown [id number] 2.16.84 0.1.494958.3.579.2.593 1986 Unknown [id number] 2.16.84 0.1.927640.3.579.2.593 1958 Medicaid [id number] 1958 Medicaid [id number] 2. [id number] [place] [address] [id number] [id number] Social History Date Type Detail Facility Sex Assigned At [facility] Start: 10-17-2017 Tobacco smoking stat [facility] Ex-smoker [facility] End: 03-28-2017 History [...] of medicated shampoo. Call if no improvement. [facility] Other Evaluation note 11-08-2022 Note Date & Type Note Facility 11-08-2022 Evaluation note Encounter Date Diagnosis Assessment Notes Oct, Chronic eczematous otitis externa of both ears (ICD-10 - H60.8X3) Discussed treatment. Will add drop with steroid component. Discussed proper hearing protection - possibly ear muff style. Also discussed ENT referral if needed. [facility] Other Evaluation note 06-12-2022 Note Date & [...] water inside ear after shower may use psychology department chair on lowest cool setting to blow dry. Follow up with PCP or UC if no improvement in the next 2-3 days. Immediate eval for severe ear pain, severe headache, neck pain/stiffness, pain, erythema, or swelling behind the ear, fever, N/V, hearing loss, fever, or any other new or concerning symptoms. Patient verbalizes understanding and is agreeable to treatment plan [facility] Other History general Narrative - Reported Note [...] REPIAR 2017 Hospitalization History SEE SURGICAL HX [facility] Other Summary Purpose Family History No Family [...] section and content) DATE CREATED AUTHOR 02/19/2018 [facility] DATE CREATED AUTHOR AUTHOR'S ORGANIZ ATION 11/14/2018 [facility] DATE CREATED AUTHOR AUTHOR'S ORGANIZ ATION 09/17/2020 [facility] DATE CREATED AUTHOR AUTHOR'S ORGANIZ ATION 12/23/2020 [facility] DATE CREATED AUTHOR AUTHOR'S ORGANIZ ATION 10/21/2021 [facility] DATE CREATED AUTHOR AUTHOR'S ORGANIZ ATION 02/03/2023 [facility] REASON FOR VISIT (unrecogniz ed section and content) EAR PAINEar InfectionCHECK U P Care Teams (unrecognized sec tion and content) Inspector Final Assembly Conveyor Line Relationship Specialty Start Date End Date Luisa Ge APRN-REEL WINDER [address] [place] [address] SUGAR TRUCKER Pulmonary Medicine 06/02/20 Jamie Hardin MD [address] [place] [address] Physician General Surgery 06/02/20 Page Faulkner M.Ed., R.D., L.D. [address] [address] Dietitian Nutrition 06/02/20 Rita Catherine MD [address] [place] [address] Physician Obstetrics/Gynecology 06/02/20 Rishabh Hi APRN-REEL WINDER [address] [place] [address] SUGAR TRUCKER Anesthesiology 06/02/20 Inspector Final Assembly Conveyor Line Relationship Specialty Start Date End Date Luisa Ge APRN-CNP [address] [place] [address] SUGAR TRUCKER Pulmonary Medicine 06/02/20 Jamie Hardin MD [address] [place] [address] [id number] Physician General Surgery 06/02/20 Page Faulkner M.Ed., R.D., L.D. [address] [address] Dietitian Nutrition 06/02/20 Rita Catherine MD [address] [place] [address] [id number] Physician Obstetrics/Gynecology 06/02/20 Rishabh Hi, EMAIL MARKETING MANAGER-REEL WINDER [address] [place] [address] [id number] SUGAR TRUCKER Anesthesiology 06/02/20 FOR RECORDS PERTAINING TO PATIENTS [...] BE BASED ON THE PRIMARY CLINICAL RECORDS. [facility] [employer] [facility]. provides no warranty or guarantee of the accuracy or completeness of information in this document.
--- NOTE | 2024-05-19 13:51 | ED_ITS ---
HPI - General Chief complaint: Vaginal Bleeding Stated complaint: VAGINAL BLEDDING, CRAMPING, 6 WEEKS Time Seen by Provider: 05/19/24 13:41 Source: patient Mode of arrival: walk-in History of Present Illness HPI Narrative: 38-year-old female presents to the emergency department for vaginal bleeding. She states she is about 6 weeks with 2 implantations from IVF. She states her last quantitative was 2400. No injury or fever or vomiting. She describes some lower abdominal cramping. Related Data Allergies Allergy/AdvReac Type Severity Reaction Status Date / Time No Known Drug Allergies Allergy Verified 05/19/24 13:44 Review of Systems ROS Narrative A ten point review of systems is negative except as noted above. PFSH PFSH Social History Little interest or pleasure in doing things: not at all Feeling down, depressed, or hopeless: not at all Exam Narrative Exam Narrative: Nurses note and vital signs reviewed and patient is not hypoxic. General: The patient appears in no apparent distress. Skin: Warm, dry, no pallor noted. There is no rash noted. Head: Normocephalic, atraumatic Eye: Normal conjunctiva, no drainage Ears, Nose, Mouth, and Throat: oral mucosa is moist. Nares patent. Cardiovascular: Regular Rate and Rhythm Respiratory: Patient is in no distress, no accessory muscle use, lungs are clear to auscultation, no wheezing, rales or rhonchi Back: non-tender GI: Soft and nondistended. Minimal tenderness in the midline lower abdomen. Musculoskeletal: The patient has no evidence of calf tenderness, no pitting edema, symmetrical pulses noted bilaterally Neurological: A&O, normal speech Psychiatric: Cooperative Constitutional Vital Signs, click to edit/add: Last Vital Signs Temp 97.5 F L 05/19/24 13:44 Pulse 66 05/19/24 13:44 Resp 16 05/19/24 13:44 BP 149/67 H 05/19/24 13:44 Pulse Ox 96 05/19/24 13:44 O2 Del Method Room Air 05/19/24 13:44 Course Vital Signs Vital signs: Vital Signs Temperature 97.5 F L 05/19/24 13:44 Pulse Rate 66 05/19/24 13:44 Respiratory Rate 16 05/19/24 13:44 Blood Pressure 149/67 H 05/19/24 13:44 Pulse Oximetry 96 05/19/24 13:44 Oxygen Delivery Method Room Air 05/19/24 13:44 Temperature 97.5 F L 05/19/24 13:44 Pulse Rate 66 05/19/24 13:44 Respiratory Rate 16 05/19/24 13:44 Blood Pressure 149/67 H 05/19/24 13:44 Pulse Oximetry 96 05/19/24 13:44 Oxygen Delivery Method Room Air 05/19/24 13:44 MDM - OB/Uterine Contractions MDM Narrative Medical decision making narrative: Ultrasound per radiologist shows single IUP with pole. The ultrasound was discussed thoroughly with the patient and she will be discharged home and will call her IVF specialist in the morning. Blood work nonspecific. Blood type a positive and hCG titers 8483. Treatment diagnosis and follow-up were discussed with the patient. There is no evidence of ectopic . Differential Diagnosis Differential diagnosis: Likely other (Miscarriage, threatened miscarriage) Lab Data Labs: Lab Results 05/19/24 05/19/24 Range/Units 13:56 14:23 WBC 9.5 (4.0-11.0) 10^3/uL RBC 4.98 (4.20-5.40) 10^6/uL Hgb 13.8 (12.0-16.0) g/dL Hct 42.3 (36.0-48.0) % MCV 84.9 (81.0-99.0) fL MCH 27.7 (26.7-34.0) pg MCHC 32.6 (29.9-35.2) g/dL RDW 13.4 (11.0-15.0) % Plt Count 341 (150-450) 10^3/uL MPV 11.7 (9.5-13.5) fL Neut % (Auto) 44.8 (43.0-75.0) % Lymph % (Auto) 43.4 (20.5-60.0) % [place] % (Auto) 6.7 (1.7-12.0) % Eos % (Auto) 4.1 (0.9-7.0) % Baso % (Auto) 0.8 (0.2-2.0) % Neut # (Auto) 4.3 (1.4-6.5) 10^3/uL Lymph # (Auto) 4.1 H (1.2-3.8) 10^3/uL [place] # (Auto) 0.6 (0.3-0.8) 10^3/uL Eos # (Auto) 0.4 (0.0-0.7) 10^3/uL Baso # (Auto) 0.1 (0.0-0.1) 10^3/uL Abs Immat Gran (auto) 0.02 (0.00-0.03) 10^3/uL Imm/Tot Granulo (auto) 0.2 (0.0-0.5) % Sodium 136 (136-145) mmol/L Potassium 3.9 (3.5-5.1) mmol/L Chloride 102 (98-107) mmol/L Carbon Dioxide 28.7 (21.0-32.0) mmol/L Anion Gap 9.2 BUN 9.0 (7.0-18.0) mg/dL Creatinine 0.84 (0.55-1.02) mg/dL Est GFR ( Amer) >60 (>=60) Est GFR (Non-Af Amer) >60 (>=60) BUN/Creatinine Ratio 10.7 Glucose 84 (74-106) mg/dL Calcium 9.6 (8.5-10.1) mg/dL HCG, Quant 8473 mIU/mL Blood Type O Positive Imaging Data Pelvic ultrasound: Radiologist's impression: ITS Impressions Transvaginal US 05/19/24 14:54 IMPRESSION: 1. Single intrauterine , uncertain viability. Intrauterine gestational sac, normal yolk sac, embryonic pole is seen. Cardiac activity could not be documented. 12-14 day follow-up sonography recommended in this regard. 2. No perigestational hemorrhage 3. Normal bilateral maternal ovarian sonographic morphology Electronically authenticated by: ARTI VASQUEZ Date: 05/19/2024 16:55 Discharge Plan Discharge Chief Complaint: Vaginal Bleeding Clinical Impression: Threatened miscarriage Patient Disposition: Home, Self-Care Time of Disposition Decision: 17:08 Condition: Good Mode of Transportation: Private Vehicle Print Language: Romansh Instructions: Threatened Miscarriage (ED) Additional Instructions: Call your IVF specialist in the morning. Referrals: Jada Lopez MD [Primary Care Provider] - 1 week
[2024-05-19 14:06] LABS: Basophils Absolute Auto 0.1 10^3/uL (0.0-0.1); Basophils Percent Auto 0.8 % (0.2-2.0); Eosinophils Absolute Auto 0.4 10^3/uL (0.0-0.7); Eosinophils Percent Auto 4.1 % (0.9-7.0); Hematocrit 42.3 % (36.0-48.0); Hemoglobin 13.8 g/dL (12.0-16.0); Immature Granulocytes Abs Auto 0.02 10^3/uL (0.00-0.03); Immature Granulocytes Pct Auto 0.2 % (0.0-0.5); Lymphocytes Absolute Auto 4.1 10^3/uL (1.2-3.8); Lymphocytes Percent Auto 43.4 % (20.5-60.0); Mean Corpuscular HGB Conc 32.6 g/dL (29.9-35.2); Mean Corpuscular Hemoglobin 27.7 pg (26.7-34.0); Mean Corpuscular Volume 84.9 fL (81.0-99.0); Mean Platelet Volume 11.7 fL (9.5-13.5); Monocytes Absolute Auto 0.6 10^3/uL (0.3-0.8); Monocytes Percent Auto 6.7 % (1.7-12.0); Neutrophils Absolute Auto 4.3 10^3/uL (1.4-6.5); Neutrophils Percent Auto 44.8 % (43.0-75.0); Platelet Count 341 10^3/uL (150-450); Red Blood Count 4.98 10^6/uL (4.20-5.40); Red Cell Distribution Width 13.4 % (11.0-15.0); White Blood Count 9.5 10^3/uL (4.0-11.0)
[2024-05-19 14:41] LABS: Anion Gap 9.2; BUN Creatinine Ratio 10.7; Calcium 9.6 mg/dL (8.5-10.1); Carbon Dioxide 28.7 mmol/L (21.0-32.0); Chloride 102 mmol/L (98-107); Estimated GFR (African America >60 (>=60); Estimated GFR (Non-African Ame >60 (>=60); Glucose 84 mg/dL (74-106); Potassium 3.9 mmol/L (3.5-5.1); Sodium 136 mmol/L (136-145)
[2024-05-19 14:48] LABS: HCG Quantitative 8473 mIU/mL
--- NOTE | 2024-05-19 14:54 | US_ITS ---
[address] [address] Patient Name: FARTUN HALL MRN: [id number] date: 1985 Sex: F Assigned Patient Location: ER Current Patient Location: ER Accession/Order Number: [id number] Exam Date: 05/19/2024 15:48 Report Date: 05/19/2024 16:55 At the request of: MARV VELIZ Procedure: US OB transvaginal PROCEDURE: US OB transvaginal, 05/19/2024 3:48 PM EDT CLINICAL INDICATIONS: In vitro fertilization, vaginal bleeding 3 para 0 AB 2 LMP 04/06/2024 Expected gestational age by LMP: 6 weeks 1 day Expected FIORELLA by LMP: 01/11/2025. COMPARISON: None TECHNIQUE: Transvaginal first trimester obstetric sonogram, grayscale, color and spectral evaluation. FINDINGS: Uterus: There is possible arcuate or partial septate morphology of uterus. A single intrauterine is identified. Intrauterine gestational sac, normal yolk sac is evident. A possible embryonic pole is seen. No cardiac activity could be documented. Mean gestational sac size: 1.01 cm Embryonic crown-rump length: 0.17 cm. Sonographic gestational age: Below the available reference data range for gestational age assessment. No perigestational hemorrhage. Maternal right ovary: 2.5 x 2.2 x 1.8 cm volume 5 mL. Normal sonographic morphology. Intact color flow. Maternal left ovary: 2.1 x 1.6 x 1.7 cm, volume 3 mL. Normal sonographic morphology. Intact color flow. Transvaginal cervical length, 3.2 cm, closed No significant maternal pelvic free fluid demonstrated. US/US OB transvaginal IMPRESSION: 1. Single intrauterine , uncertain viability. Intrauterine gestational sac, normal yolk sac, embryonic pole is seen. Cardiac activity could not be documented. 12-14 day follow-up sonography recommended in this regard. 2. No perigestational hemorrhage 3. Normal bilateral maternal ovarian sonographic morphology Electronically authenticated by: ARTI VASQUEZ Date: 05/19/2024 16:55
== END 2024-05-19 17:17 | disposition home or self-care (01) ==
PROVIDERS: Emergency Provider Emergency Medicine; PCP Family Medicine
DX: O20.0 Threatened abortion (principal); Z3A.01 Less than 8 weeks gestation of pregnancy; O09.811 Supervision of pregnancy resulting from assisted reproductive technology, first trimester
CPT/HCPCS: 36415; 76817; 80048; 84702; 85025; 86900; 86901; 99284

== ENCOUNTER 2024-07-17 15:37 | Outpatient (OUT) | payer BC, SELFPAY ==
--- OUTSIDE RECORDS SUMMARY | 2024-07-17 16:00 | XMS_ITS | CCD ---
Author Organization [facility] Care Team Providers Care Nutrition Director Name Role Phone No Family Physician Unavailable Unavailable No Family Physician Unavailable Unavailable NO FAMILY DOCTOR, NO FAMILY DOCTOR Primary Care Unavailable YANIRA MARTINO Attending Unavailable Swathi DANIEL Referring Unavailab le PROVIDER, UNKNOWN Attending Unavailable PROVIDER, UNKNOWN Admitting Unavailable WILSON CASTRO Primary Care Unavailable Yolis James Unavailable Joo PACKER, Luisa Unavailable Lashawn MESSER, Jamie Unavailable Kaushki West, R.Keyana., L.D., Page Unavailable Florin MESSER, Rita Unavailable Sussy PACKER, Rishabh NAlexia Unavailable [phone] Jada Oliveros Unavailable Joo PACKER, Luisa Unavailable [phone] Lashawn MESSER, Jamie Unavailable Kaushik West, R.Keyana., L.D., Page Unavailable Florin MESSER, Rita Unavailable Sussy PACKER, Rishabh N. Unavailable BRYANT ., DR GOSS Attending Unavailable BRYANT ., DR GOSS Admitting Unavailable ARLIN, DR JADA Corey Primary Care Unavailable BRYANT ., DR GOSS Consulting Unavailable REQUEST, DR GARAY LISTED Primary Care Unavaila ble BRYANT ., DR GOSS Attending Unavailable CIMARRON, DR YANIRA Steele Consulting Unavailable BRYANT ., DR GOSS Admitting Unavailable BRYANT ., DR GOSS Consulting Unavailable BRYANT ., DR GOSS Admitting Unavailable BRYANT ., DR GOSS Attending Unavailable REQUEST, DR NONE LISTED Primary Care Unavaila ble BRYANT ., DR GOSS Consulting Unavailable REQUEST, DR NONE LISTED Primary Care Unavaila ble BRYANT ., DR GOSS Admitting Unavailable BRYANT ., DR GOSS Attending Unavailable BRYANT ., DR GOSS Consulting Unavailable REQUEST, DR NONE LISTED Primary Care Unavaila ble BRYANT ., DR GOSS Admitting Unavailable BRYANT ., DR GOSS Attending Unavailable BRYANT ., DR GOSS Consulting Unavailable REQUEST, DR NONE LISTED Primary Care Unavaila ble BRYANT ., DR GOSS Admitting Unavailable BRYANT ., DR GOSS Attending Unavailable BRYANT ., DR GOSS Consulting Unavailable MISC, DR MCDANIEL Primary Care Unavailable BRYANT ., DR GOSS Attending Unavailable BRYANT ., DR GOSS Admitting Unavailable BRYANT ., DR GOSS Consulting Unavailable BRYANT ., DR GOSS Admitting Unavailable BRYANT ., DR GOSS Attending Unavailable MISC, DR MCDANIEL Primary Care Unavailable ZIEBER, DR YADIRA Carrera Consulting Unavailable BRYANT ., DR GOSS Attending Unavailable BRYANT ., DR GOSS Admitting Unavailable OLIVEROS, DR JADA Corey Primary Care Unavailable BRYANT ., DR GOSS Consulting Unavailable BRYANT ., DR GOSS Consulting Unavailable BRYANT ., DR GOSS Attending Unavailable BRYANT ., DR GOSS Admitting Unavailable OLIVEROS, DR JADA Corey Primary Care Unavailable BRYANT ., DR GOSS Consulting Unavailable BRYANT ., DR GOSS Attending Unavailable BRYANT ., DR GOSS Admitting Unavailable OLIVEROS, DR JADA Corey Primary Care Unavailable BRYANT ., DR GOSS Consulting Unavailable BRYANT ., DR GOSS Attending Unavailable BRYANT ., DR GOSS Admitting Unavailable OLIVEROS, DR JADA Corey Primary Care Unavailable BRYANT ., DR GOSS Attending Unavailable BRYANT ., DR GOSS Admitting Unavailable OLIVEROS, DR JADA Corey Primary Care Unavailable BRYANT ., DR GOSS Consulting Unavailable Arlin MESSER, Jada Primary Care Provider Allergies Allergy Classification Reported Allergen(s) Allergy Type [...] times daily. 60 Capsule 3 05/30/2019 Active folic acid 1 mg oral tablet (1 source) take 1 tablet by mouth once daily folic acid (Folvite) 1 MG tablet Take 1 mg by mouth Daily Active humidifier (2 sources) Start: 09-21-2018 humidifier Dispense humidifier covered by insurance to use as directed 1 Each 0 09/21/2018 Active hydrocortisone 10 mg/ml / neomycin 3.5 mg/ml / polymyxin b 32862 unt/ml otic solution (1 source) Aminoglycoside Antibacterial, [...] a meal Orally Once a day Active multivitamin (Theragran) tablet (1 source) take 1 tablet by mouth once daily multivitamin (Theragran) tablet Take 1 tablet by mouth Daily Active Multivitamin preparation (1 source) Multivitamin Act [...] for nausea. 30 Tablet 1 05/30/2019 Active MV-Min-Fe Fum-FA-DHA ( 1 PO) (1 source) MV-Min- Fe Fum-FA-DHA ( 1 PO) Take 1 each by mouth Daily Active triamcinolone acetonide 1 mg/ml topical cream [...] Active vitamin b12 0.1 mg oral tablet (4 sources) Vitamin B12 Start: 10-29-2018 take 1 tablet by mouth once daily Cyanocobalamin (B-12) 100 MCG TABS Take 100 mcg by mouth daily. 30 Tablet 11 10/29/2018 Active Vitamin B12 Acti ve Completed/Discontinued Medications Medication Drug Class(es) Dates Sig (Normalized) Sig (Original) desogestrel 0.15 mg / ethinyl estradiol 0.03 mg oral tablet (1 source) Progestin, Estrogen Start: 11-03-2023 End: 07-04-2024 take 1 tablet by mouth once daily Isibloom 0.15-30 MG-MCG tablet TAKE ONE TABLET BY MOUTH ONCE DAILY -ACTIVE TABLETS ONLY 11/03/2023 07/04/2024 Discontinued Problems Active Problems Problem Classification Problem Date [...] Translations: [Headache] Onset: 11-07-2018 Episodic Menstrual disorders (13 sources) Amenorrhea; Translations: [Amenorrhea, unspecified] Onset: 09-22-2018 [...] adiposity] Chronic Other and delivery including normal (6 sources) Encounter for test, result positive; Translations: [] Onset: 01-17-2023 Episodic Other screening for suspected [...] Test Name Value Interpretation Reference Range Facility HCG ( test) Ql (U)o n 07-04-2024 Interpretation and review of laboratory results Abnormal [facility] Preg Test, Ur Positive Negative [facility] Urinalysis macro (dipstick) panel (U)on 07-04-2024 Bilirubin, UA Negative Negative - 4(70) +++ mg/dL [facility] Blood, UA Positive Negative - 50 Nnamdi/mcL [facility] Comment on above: trace-intact Clarity, UA Clear [facility] Color, UA Yellow [facility] Glucose, UA Negative Negative - 2000(110) ++++ mg/dL [facility] Interpretation and review of laboratory results Abnormal [facility] Ketones, UA Negative Negative - 160(16) ++++ mg/dL [facility] Leukocytes, UA Negative Negative - 500+++ Dilcia/mcL [facility] Nitrite, UA Negative Negative - Positive [facility] pH, UA 6 5 - 9 [facility] Protein, UA Negative Negative - 2000(20) ++++ mg/dL [facility] Spec Grav, UA 1.03 1 - 1.03 [facility] Urobilinogen, UA 0.2 0.2 - 12 mg/dL [facility] PREG QUANT HCGon 01-17-2023 HCG QUANT <1 Normal [facility] Comment on above: Performed By: #### P REGQNT #### [facility] [address] [address] [address] Meghan Vital HCG RANGE SEE BELOW Normal [facility] Comment on above: Result Comment: 5-50 0.2-1 WEEK 50-500 1-2 WEEKS 100-5,000 2-3 WEEKS 500-10,000 3-4 WEEKS 1,000-50,000 4-5 WEEKS 10,000-100,000 5-6 WEEKS 15,000-200,000 6-8 WEEKS 10,000-100,000 2-3 MONTHS Performed By: #### P REGQNT #### [facility] [address] [place] [address] Dr. Meghan Vital PROGESTERONEon 01-10-2023 Progesterone 8.9 ng/mL Normal [facility] Comment on above: Result Comment: Foll icular phase 0.1 - 0.9 Luteal phase 1.8 - 23.9 Ovulation phase 0.1 - 12.0 First trimester 11.0 - 44.3 Second trimester 25.4 - 83.3 Third trimester 58.7 - 214.0 Postmenopausal 0.0 - 0.1 Performed By: #### H CGSUB #### [facility] [address] [place] [address] Dr. Meghan Vital PAP ACOG PANEL 2: 30 to 65on 11-30-2022 . . Normal [facility] Comment on above: Result Comment: Perf ormed at: WB Performed By: #### [id number] #### [facility] [address] [place] [address] Dr. Meghan Vital Age Gdln ACOG Testing 30- Normal [facility] Comment on above: Performed By: #### [id number] #### [facility] [address] [place] [address] Dr. Meghan Vital DIAGNOSIS: Comment Normal [facility] Comment on above: Result Comment: NEGA TIVE FOR INTRAEPITHELIAL LESION OR MALIGNANCY. Performed at: WB Performed By: #### [id number] #### [facility] [address] [place] [address] Dr. Meghan Vital HPV Aptima Positive Abnormal Negative [facility] Comment on above: Result Comment: This nucleic acid amplification test detects fourteen high-risk HPV types (16,18,31,33,35,39,45,51,52,56,58,59,66,68) without differentiation. Performed at: =G Performed By: #### [id number] #### [facility] [address] [place] [address] Dr. Meghan Vital HPV Genotype 16 Negative Normal Negative [facility] Comment on above: Performed By: #### [id number] #### [facility] [address] [place] [address] Dr. Meghan Vital HPV Genotype 18,45 Negative Normal Negative [facility] Comment on above: Performed By: #### [id number] #### [facility] [address] [place] [address] Dr. Meghan Vital HPV Genotype Reflex Comment Normal [facility] Comment on above: Result Comment: Aiyana iqbal, see HPV Genotype results. Performed at: WB Performed By: #### [id number] #### [facility] [address] [place] [address] Dr. Meghan Vital Methodology: Comment Normal [facility] Comment on above: Result Comment: This liquid based ThinPrep(R) pap test was screened with the use of an image guided system. Performed at: WB Performed By: #### [id number] #### [facility] [address] [place] [address] Dr. Meghan Vital Note: Comment Normal [facility] Comment on above: Result Comment: The Pap smear is a screening test designed to aid in the detection of premalignant and malignant conditions of the uterine cervix. It is not a diagnostic procedure and should not be used as the sole means of detecting cervical cancer. Both false-positive and false-negative reports do occur. . Performed at: WB Performed By: #### [id number] #### [facility] [address] [place] [address] Dr. Meghan Vital Performed by: Comment Normal [facility] Comment on above: Result Comment: Rahul Kincaid, [employer] (ASCP) Performed at: WB Performed By: #### [id number] #### [facility] [address] [place] [address] Dr. Meghan Vital Specimen adequacy: Comment Normal [facility] Comment on above: Result Comment: Sati sfactory for evaluation. Endocervical and/or squamous metaplastic cells (endocervical component) are present. Performed at: WB Performed By: #### [id number] #### [facility] [address] [place] [address] Dr. Meghan Vital ANTI-MULLERIAN HORMONEon Anti-Mullerian Hormone (AMH) 3.03 ng/mL Normal [facility] Comment on above: Result Comment: For assays employing antibodies, the possibility exists for interference by heterophile antibodies in the samples.1 1.Bailey Dickson Interferences in Immunoassays - still a threat. Clin. Chem. 2000; 46: 7643-1884. This test was developed and its performance characteristics determined by [employer] It has not been cleared or approved by the Food and Drug Administration. Reference Range: Females 36 - 40y: 0.42 - 8.34 Median 1.69 AMH concentrations of >= 1.06 ng/mL is correlated with a better response to ovarian stimulation, produced more retrievable oocytes and higher odds of live according to Holland et al. Fertility and Sterility. 2010: 94:0790-9395. The current AMH test method correlates with [...] tumor. Performed By: #### H CGSUB #### [facility] [address] [place] [address] Dr. Meghan Vital CBC AUTO DIFFon 11-21-2022 BASO # 0.1 103/ul Normal 0.0-0.1 [facility] Comment on above: Performed By: #### H CGSUB #### [facility] [address] [place] [address] Dr. Meghan Vital Basophils/100 WBC (Bld) 0.8 % Normal 0.2-2.0 [facility] Comment on above: Performed By: #### H CGSUB #### [facility] [address] [place] [address] Dr. Meghan Vital EO # 0.2 103/ul Normal 0.0-0.7 [facility] Comment on above: Performed By: #### H CGSUB #### [facility] [address] [place] [address] Dr. Meghan Vital Eosinophils/100 WBC (Bld) 2.3 % Normal 0.9-7.0 [facility] Comment on above: Performed By: #### H CGSUB #### [facility] [address] [place] [address] Dr. Meghan Vital Erythrocyte distribution width (RBC) [Ratio] 13.3 % Normal 11.0-15.0 [facility] Comment on above: Performed By: #### H CGSUB #### [facility] [address] [place] [address] Dr. Meghan Vital Hematocrit (Bld) [Volume fraction] 42.4 % Normal 36.0-48.0 [facility] Comment on above: Performed By: #### H CGSUB #### [facility] [address] [place] [address] Dr. Meghan Vital Hemoglobin (Bld) [Mass/Vol] 13.6 g/dL Normal 12.0-16.0 [facility] Comment on above: Performed By: #### H CGSUB #### [facility] [address] [place] [address] Dr. Meghan Vital IG # 0.01 10e3/ul Normal 0.00-0.03 [facility] Comment on above: Performed By: #### H CGSUB #### [facility] [address] [place] [address] Dr. Meghan Vital IG % 0.1 % Normal 0.0-0.5 [facility] Comment on above: Performed By: #### H CGSUB #### [facility] [address] [place] [address] Dr. Meghan Vital LYMPH # 3.9 103/ul Critically high 1.2-3.8 [facility] Comment on above: Performed By: #### H CGSUB #### [facility] [address] [place] [address] Dr. Meghan Vital Lymphocytes/100 WBC (Bld) 42.7 % Normal 20.5-60.0 [facility] Comment on above: Performed By: #### H CGSUB #### [facility] [address] [place] [address] Dr. Meghan Vital MANUAL DIFF REQ NO Normal [facility] Comment on above: Performed By: #### H CGSUB #### [facility] [address] [place] [address] Dr. Meghan Vital MCH (RBC) [Entitic mass] 27.4 pg Normal 26.7-34.0 [facility] Comment on above: Performed By: #### H CGSUB #### [facility] [address] [place] [address] Dr. Meghan Vital MCHC (RBC) [Mass/Vol] 32.1 g/dL Normal 29.9-35.2 [facility] Comment on above: Performed By: #### H CGSUB #### [facility] [address] [place] [address] Dr. Meghan Vital MCV (RBC) [Entitic vol] 85.3 fL Normal 81.0-99.0 [facility] Comment on above: Performed By: #### H CGSUB #### [facility] [address] [place] [address] Dr. Meghan Vital MONO # 0.6 103/ul Normal 0.3-0.8 [facility] Comment on above: Performed By: #### H CGSUB #### [facility] [address] [place] [address] Dr. Meghan Vtial Monocytes/100 WBC (Bld) 6.1 % Normal 1.7-12.0 [facility] Comment on above: Performed By: #### H CGSUB #### [facility] [address] [place] [address] Dr. Meghan Vital NEUT # 4.3 103/ul Normal 1.4-6.5 [facility] Comment on above: Performed By: #### H CGSUB #### [facility] [address] [place] [address] Dr. Meghan Vital Neutrophils/100 WBC (Bld) 48.0 % Normal 43.0-75.0 [facility] Comment on above: Performed By: #### H CGSUB #### [facility] [address] [place] [address] Dr. Meghan Vital Platelet mean volume (Bld) [Entitic vol] 11.5 fL Normal 9.5-13.5 [facility] Comment on above: Performed By: #### H CGSUB #### [facility] [address] [place] [address] Dr. Meghan Vital PLT 251 103/ul Normal 150-450 [facility] Comment on above: Performed By: #### H CGSUB #### [facility] [address] [place] [address] Dr. Meghan Vital RBC 4.97 106/ul Normal 4.20-5.40 [facility] Comment on above: Performed By: #### H CGSUB #### [facility] [address] [place] [address] Dr. Meghan Vital WBC 9.0 103/ul Normal 4.0-11.0 [facility] Comment on above: Performed By: #### H CGSUB #### [facility] [address] [place] [address] Dr. Meghan Vital FREE T4on 11-21-2022 Free T4 [Mass/Vol] 1.03 ng/dL Normal 0.76-1.46 [facility] Comment on above: Performed By: #### F T4 #### [facility] [address] [place] [address] Dr. Meghan Vital GLYCOHEMOGLOBIN A1Con 2022 ADA RECOMMENDATION SEE BELOW Normal [facility] Comment on above: Result Comment: ADA RECOMMENDED LIMIT 4.0 - 6.0 ADA THERAPEUTIC TARGET < 7.0 ACTION SUGGESTED > 7.0 Performed By: #### H CGSUB #### [facility] [address] [place] [address] Dr. Meghan Vital Glucose [Mass/Vol] 97 mg/dL Normal [facility] Comment on above: Performed By: #### H CGSUB #### [facility] [address] [place] [address] Dr. Meghan Vital HbA1c (Bld) [Mass fraction] 5.0 % Normal 4.5-6.2 [facility] Comment on above: Performed By: #### H CGSUB #### [facility] [address] [place] [address] Dr. Meghan Vital TSHon 11-21-2022 TSH 1.636 uIU/mL Normal 0.358-3.74 0 [facility] Comment on above: Performed By: #### H CGSUB #### [facility] [address] [place] [address] Dr. Meghan Vital PROGESTERONEon 10-12-2022 Progesterone 6.8 ng/mL Normal [facility] Comment on above: Result Comment: Foll icular phase 0.1 - 0.9 Luteal phase 1.8 - 23.9 Ovulation phase 0.1 - 12.0 First trimester 11.0 - 44.3 Second trimester 25.4 - 83.3 Third trimester 58.7 - 214.0 Postmenopausal 0.0 - 0.1 Performed By: #### H CGSUB #### [facility] [address] [place] [address] Dr. Meghan Vital CBC AUTO DIFFon 09-23-2022 BASO # 0.1 103/ul Normal 0.0-0.1 [facility] Comment on above: Performed By: #### C BC #### [facility] [address] [place] [address] Dr. Meghan Vital Basophils/100 WBC (Bld) 1.2 % Normal 0.2-2.0 [facility] Comment on above: Performed By: #### C BC #### [facility] [address] [place] [address] Dr. Meghan Vital EO # 0.2 103/ul Normal 0.0-0.7 [facility] Comment on above: Performed By: #### C BC #### [facility] [address] [place] [address] Dr. Meghan Vital Eosinophils/100 WBC (Bld) 2.4 % Normal 0.9-7.0 [facility] Comment on above: Performed By: #### C BC #### [facility] [address] [place] [address] Dr. Meghan Vital Erythrocyte distribution width (RBC) [Ratio] 13.1 % Normal 11.0-15.0 [facility] Comment on above: Performed By: #### C BC #### [facility] [address] [place] [address] Dr. Meghan Vital Hematocrit (Bld) [Volume fraction] 38.1 % Normal 36.0-48.0 [facility] Comment on above: Performed By: #### C BC #### [facility] [address] [place] [address] Dr. Meghan Vital Hemoglobin (Bld) [Mass/Vol] 13.4 g/dL Normal 12.0-16.0 [facility] Comment on above: Performed By: #### C BC #### [facility] [address] [place] [address] Dr. Meghan Vital IG # 0.01 10e3/ul Normal 0.00-0.03 [facility] Comment on above: Performed By: #### C BC #### [facility] [address] [place] [address] Dr. Meghan Vital IG % 0.1 % Normal 0.0-0.5 [facility] Comment on above: Performed By: #### C BC #### [facility] [address] [place] [address] Dr. Meghna Vital LYMPH # 3.4 103/ul Normal 1.2-3.8 [facility] Comment on above: Performed By: #### C BC #### [facility] [address] [place] [address] Dr. Meghan Vital Lymphocytes/100 WBC (Bld) 45.2 % Normal 20.5-60.0 [facility] Comment on above: Performed By: #### C BC #### [facility] [address] [place] [address] Dr. Meghan Vital MANUAL DIFF REQ NO Normal [facility] Comment on above: Performed By: #### C BC #### [facility] [address] [place] [address] Dr. Meghan Vital MCH (RBC) [Entitic mass] 27.8 pg Normal 26.7-34.0 [facility] Comment on above: Performed By: #### C BC #### [facility] [address] [place] [address] Dr. Meghan Vital MCHC (RBC) [Mass/Vol] 35.2 g/dL Normal 29.9-35.2 [facility] Comment on above: Performed By: #### C BC #### [facility] [address] [place] [address] Dr. Meghan Vital MCV (RBC) [Entitic vol] 79.0 fL Critically low 81.0-99.0 [facility] Comment on above: Performed By: #### C BC #### [facility] [address] [place] [address] Dr. Meghan Vital MONO # 0.4 103/ul Normal 0.3-0.8 [facility] Comment on above: Performed By: #### C BC #### [facility] [address] [place] [address] Dr. Meghan Vital Monocytes/100 WBC (Bld) 5.3 % Normal 1.7-12.0 [facility] Comment on above: Performed By: #### C BC #### [facility] [address] [place] [address] Dr. Meghan Vital NEUT # 3.4 103/ul Normal 1.4-6.5 [facility] Comment on above: Performed By: #### C BC #### [facility] [address] [place] [address] Dr. Meghan Vital Neutrophils/100 WBC (Bld) 45.8 % Normal 43.0-75.0 [facility] Comment on above: Performed By: #### C BC #### [facility] [address] [place] [address] Dr. Meghan Vital Platelet mean volume (Bld) [Entitic vol] 11.4 fL Normal 9.5-13.5 [facility] Comment on above: Performed By: #### C BC #### [facility] [address] [place] [address] Dr. Meghan Vital PLT 280 103/ul Normal 150-450 [facility] Comment on above: Performed By: #### C BC #### [facility] [address] [place] [address] Dr. Meghan Vital RBC 4.82 106/ul Normal 4.20-5.40 [facility] Comment on above: Performed By: #### C BC #### [facility] [address] [place] [address] Dr. Meghan Vital WBC 7.5 103/ul Normal 4.0-11.0 [facility] Comment on above: Performed By: #### C BC #### [facility] [address] [place] [address] Dr. Meghan Vital FREE T4on 09-23-2022 Free T4 [Mass/Vol] 1.17 ng/dL Normal 0.76-1.46 [facility] Comment on above: Performed By: #### H CGSUB #### [facility] [address] [place] [address] Dr. Meghan Vital GLYCOHEMOGLOBIN A1Con 2022 ADA RECOMMENDATION SEE BELOW Normal [facility] Comment on above: Result Comment: ADA RECOMMENDED LIMIT 4.0 - 6.0 ADA THERAPEUTIC TARGET < 7.0 ACTION SUGGESTED > 7.0 Performed By: #### A 1C #### [facility] [address] [place] [address] Dr. Meghan Vital Glucose [Mass/Vol] 100 mg/dL Normal [facility] Comment on above: Performed By: #### A 1C #### [facility] [address] [place] [address] Dr. Meghan Vital HbA1c (Bld) [Mass fraction] 5.1 % Normal 4.5-6.2 [facility] Comment on above: Performed By: #### A 1C #### [facility] [address] [place] [address] Dr. Meghan Vital TSHon 09-23-2022 TSH 1.235 uIU/mL Normal 0.358-3.74 0 [facility] Comment on above: Performed By: #### T SH #### [facility] [address] [place] [address] Dr. Meghan Vital PREG QUANT HCGon 07-12-2022 HCG QUANT 1 mIU/mL Normal [facility] Comment on above: Performed By: #### P REGQNT #### [facility] [address] [place] [address] Dr. Meghan Vital HCG RANGE SEE BELOW Normal [facility] Comment on above: Result Comment: 5-50 0.2-1 WEEK 50-500 1-2 WEEKS 100-5,000 2-3 WEEKS 500-10,000 3-4 WEEKS 1,000-50,000 4-5 WEEKS 10,000-100,000 5-6 WEEKS 15,000-200,000 6-8 WEEKS 10,000-100,000 2-3 MONTHS Performed By: #### P REGQNT #### [facility] [address] [place] [address] Dr. Meghan Vital XR HYSTEROSALPINGOGRAMon XR HYSTEROSALPINGOGRAM [...] by: YADIRA BAKER Date: 2022-07-12 12:12 Normal [facility] PROGESTERONEon 06-30-2022 Progesterone 20.9 ng/mL Normal [facility] Comment on above: Result Comment: Foll icular phase 0.1 - 0.9 Luteal phase 1.8 - 23.9 Ovulation phase 0.1 - 12.0 First trimester 11.0 - 44.3 Second trimester 25.4 - 83.3 Third trimester 58.7 - 214.0 Postmenopausal 0.0 - 0.1 Performed By: #### P PHIL #### [facility] [address] [address] [address] Meghan Vital HCG-BETA SUBUNIT QUANTon hCG,Beta Subunit,Qnt,Serum <1 Normal [facility] Comment on above: Result Comment: Fema le (Non-) 0 - 5 (Postmenopausal) 0 - 8 . Female () Weeks of Gestation 3 6 - 71 4 10 - 750 5 217 - 7138 6 158 - 84475 7 3697 -741157 8 70529 -630427 9 78202 -037856 10 74451 -744163 12 46201 -506373 14 52802 - 18940 15 59902 - 65560 16 9040 - 79426 17 8175 - 77672 18 8099 - 42604 Jeremy ECLIA methodology Performed By: #### H CGSUB #### [facility] [address] [place] [address] Dr. Meghan Vital HCG-BETA SUBUNIT QUANTon hCG,Beta Subunit,Qnt,Serum <1 Normal [facility] Comment on above: Result Comment: Fema le (Non-) 0 - 5 (Postmenopausal) 0 - 8 . Female () Weeks of Gestation 3 6 - 71 4 10 - 750 5 217 - 7138 6 158 - 83050 7 3697 -236987 8 51783 -046835 9 78513 -007746 10 38602 -525338 12 30476 -941301 14 12024 - 41358 15 05832 - 93275 16 9040 - 12392 17 8175 - 19484 18 8099 - 60966 Jeremy ECLIA methodology Performed By: #### H CGSUB #### [facility] [address] [address] [address] Meghan Vital PROGESTERONEon 02-26-2022 Progesterone <0.1 Normal [facility] Comment on above: Result Comment: Foll icular phase 0.1 - 0.9 Luteal phase 1.8 - 23.9 Ovulation phase 0.1 - 12.0 First trimester 11.0 - 44.3 Second trimester 25.4 - 83.3 Third trimester 58.7 - 214.0 Postmenopausal 0.0 - 0.1 Performed By: #### P PHIL #### [facility] [address] [place], [place] [address] Dr. Meghan Vital US PELVIS AND TRANSVAGon [...] YANIRA MICHAEL Date: 2022-02-24 16:57 Normal [facility] Ambulatory Clinical Summaryo n 12-22-2020 Ambulatory Clinical Summary {[id number]}CD:61 4368 Normal [facility] Family Medicine Office/Clini [...] documented 3008F Office Visit Level 2 Est 93404 2. Tobacco use (Z72.0: Tobacco use) We [...] smoker 1034F Office Visit Level 2 Est 62315 3. Hordeolum externum right lower eyelid (H00.012: Hordeolum externum right lower eyelid) Will treat with bacitracin ointment. May use warm compresses 3-4 x day. FU with PCP if not gradually improving over next 7 days, sooner if significantly spreading erythema, edema, warmth, fever. Patient verbalized understanding of tx plan Ordered: Office Visit Level 2 Est 67907 Orders: erythromycin ophthalmic, 0.5 in, OPTH, QID for 7 day(s), 3.5 gm, Refill(s) 0, to right eye, [facility], 163, cm, 12/22/20 15:32:00 [...] 11/17/2020 Family History Family history is negative [facility] Comment on above: Result Comment: Elec tronically [...] methods. Where to find more information ? [employer]: www.lung.org ? [employer]: www.cancer.org Summary ? Smoking cigarettes [...] 09/21/2005 Document Revised: 11/15/2018 Document Reviewed: 08/18/2017 [employer] Patient Education ? 2019 [employer]. [facility] Provider Letteron 12-22-2020 Provider Letter (Inserted Image. Mary ble to display) December 22, 2020 FARTUN RODRÍGUEZ [address] [place] [id number] FARTUN RODRÍGUEZ 1985 To Whom It May Concern, Please excuse above patient from work. 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 Cigarettes, Yes, 11/17/2020 [facility] Comment on above: Result Comment: Elec tronically [...] to help relieve symptoms, such as: ? Haot-pod-atbnkcf cold medicines. ? Cough suppressants. Coughing is [...] other clear broths. General instructions ? Take rmxb-xov-zzrfbhk and prescription medicines only as told by [...] and water are not available, use hand seat cover maker. ? Avoid touching your mouth, face, eyes, [...] FARTUN RODRÍGUEZ [address] [place] [phone] FARTUN RODRÍGUEZ 1985 To Whom It May Concern, Please excuse above patient from work. Date of Illness: From: 11/17/2020 To: 11/18/2020 May Return to Work On:11/19/2020 Comments: Patient above was seen at [facility] on 11/17/2020. Sincerely, [facility] [address] [place] [address] Normal [facility] Provider Letteron 09-22-2020 Provider Letter (Inserted Image. Mary ble to display) September 22, 2020 FARTUN RODRÍGUEZ [address] [place] [phone] FARTUN RODRÍGUEZ 1985 To Whom It May Concern, Please excuse above patient from work. Date of Illness: From: 09/22/2020 May Return to Work On:09/23/2020 Comments: The above patient may return back to work on the above date. Sincerely, [facility] [address] [place] [address] [facility] SURGICAL PATH REPORTon 07-31 SURGICAL PATH REPORT [facility] Department of Pathology [address] [place] [address] Name: FARTUN RODRÍGUEZ : 1985 Financial [id number] Number: Gender: Female Location: [facility] Admit 34 years Attending ANA PAULA HURTADO Age: Provider: Ordering ANA PAULA HURTADO Provider: Consulting: Surgical Pathology Report ACCESSION: COLLECTED DATE/TIME: RECEIVED DATE/TIME: PATHOLOGIST: [id number] 07/30/2020 13:19 EST 07/30/2020 13:19 EST SHADE MULLER MD Final Diagnosis Report for [facility] [place] [employer]: - [employer]. [...] cm. There are no grossly identifiable parts. Asset Protection Greeter sections are submitted in three cassettes. MP/ekaterina 07/30/2020 Tissue pathology report for: [facility], [address] [place] [address]; Print Date/ 07/31/2020 15:05 EST Number: Time: [facility] Department of Pathology [address] [place] [phone] Name: FARTUN RODRÍGUEZ : 1985 Financial [id number] Number: Gender: Female Location: [facility] Admit 34 years Attending ANA PAULA HURTADO Age: Provider: Ordering ANA PAULA HURTADO Provider: Consulting: Surgical Pathology Report ACCESSION: COLLECTED DATE/TIME: RECEIVED DATE/TIME: PATHOLOGIST: [id number] 07/30/2020 13:19 EST 07/30/2020 13:19 EST YOHANA MESSER, SHADE Gross Description PATHOLOGY SERVICES PROVIDED BY [employer] (CLIA #[id number]) in cooperation with [facility] at [address] [place] [address] (CLIA #[id number]) Codes CPT CODE: 11944 Print Date/ 07/31/2020 15:05 EST Number: Time: Normal [facility] Comment on above: Performed By: #### [id number] #### [facility] Services [address] [place] [address] Environmental Restoration Planner: Shade Muller MD Consenton 05-29-2020 Consent [id number]:127 Normal [facility] Registrationon 05-29-2020 Registration [id number]:127 [facility] Influenza A,Bon 11-08-2018 Influenza A, Rapid Ag Negative Normal Negative [facility] Comment on above: Performed By: #### 5 [id number] #### [facility] [address] [place] [address] Influenza B, Rapid Ag Negative Normal Negative [facility] Comment on above: Performed By: #### 5 [id number] #### [facility] [address] [place] [address] Urinalysis with Reflex Cultu reon 11-08-2018 Appearance Nom (U) Clear Normal Clear [facility] Comment on above: Performed By: #### U ARFX #### [facility] [address] [place] [address] Ascorbic Acid Negative Normal Negative [facility] Comment on above: Performed By: #### U ARFX #### [facility] [address] [place] [address] Automated Urine Microscopy Not indicated Normal [facility] Comment on above: Performed By: #### U ARFX #### [facility] [address] [place] [address] Bilirubin mass conc Negative Normal Negative [facility] Comment on above: Performed By: #### U ARFX #### [facility] [address] [place] [address] Blood Negative Normal Negative [facility] Comment on above: Performed By: #### U ARFX #### [facility] [address] [place] [address] Color Nom (U) Yellow Normal [facility] Comment on above: Performed By: #### U ARFX #### [facility] [address] [place] [address] Glucose mass conc 50 mg/dL Abnormal Negative [facility] Comment on above: Performed By: #### U ARFX #### [facility] [address] [place] [address] Ketones Ql (U) Negative Normal Negative [facility] Comment on above: Performed By: #### U ARFX #### [facility] [address] [place] [address] Leukocytes Esterase Negative Normal Negative [facility] Comment on above: Performed By: #### U ARFX #### [facility] [address] [place] [address] Nitrite Ql (U) Negative Normal Negative [facility] Comment on above: Performed By: #### U ARFX #### [facility] [address] [place] [address] pH (Bld) 5.0 Normal 5.0-9.0 [facility] Comment on above: Performed By: #### U ARFX #### [facility] [address] [place] [address] Protein mass conc (U) Negative Normal Negative [facility] Comment on above: Performed By: #### U ARFX #### [facility] [address] [place] [address] Specific gravity Relative Density (U) 1.026 Normal 1.003-1.03 5 [facility] Comment on above: Performed By: #### U ARFX #### [facility] [address] [place] [address] Urobilinogen Qn (U) <2.0 Normal Negative [facility] Comment on above: Result Comment: Due to a manufacturing issue, low positive urobilinogen results may be falsely positive. Correlate with urine bilirubin and additional clinical/laboratory findings to assess the risk of hemolytic anemia or liver disease. If clinically indicated, repeat testing with an alternate method is available by contacting the laboratory within 24 hours. Performed By: #### U ARFX #### [facility] [address] [place] [address] STREP GROUP A AG QUALon 08-29 STREP GROUP A AG QUAL STREP GROUP A AG Q UAL GROUP A STREP NEGATIVE FOR STREPTOCOCCUS GROUP A ANTIGEN THROAT CULTURE: REFERRED TO [facility] FOR CULTURE CONFIRMATION CULTURE RESULT: CULTURE NEGATIVE FOR BETA STREP GROUP A Normal [facility] Comment on above: Performed By: #### M STREPA ####[facility] [id number] [place] [address] ED Provider Reporton 018 ED Provider Report [place], [place] [address]Patient Name: FARTUN RODRÍGUEZ : [birth year]Acct #: [id number] Unit #: [id number]'s ER Arrival Date: 09/21/17 ER Physician: Yoshi [...] illicit drug usePast Social HistorySmoking Status:FORMER SMOKERTobacco UseCIGARETTESPacks/Rxx7Olnh :LESS THAN 1 YEAR AGOReview of SystemsReview [...] Resp B/P B/P Pulse O2 O2 Flow JnL2Elsc Ox Delivery Rate01/25 1712 36.5 83 18 [...] to follow-up with PCP.Disposition DecisionDischargeDispositio n Date09/21/17Decision [id number] obiologyDate/Time Procedure - StatusSource Zstvrr48/25 1745 Group A Streptococcus Screen (BETHANY) - [...] 09/22/17 1146 Normal [facility] Vital Signs Date Time Vital Sign Value Performing Clinician Facility 07-04-2024 15:55-0500 Body mass index (BMI) [Ratio] 27.48 kg/m2 [facility] Nurse [facility] 07-04-2024 15:55-0500 Body weight 72.63 kg [facility] Nurse [facility] 07-04-2024 15:55-0500 Diastolic blood pressure 60 mm[Hg] [facility] Nurse [facility] 07-04-2024 15:55-0500 Systolic blood pressure 110 mm[Hg] [facility] 05-31-2023 09:00-0400 Body height 162.56 cm Jada Oliveros Other [facility] Other 05-31-2023 09:00-0400 Body mass index (BMI) [Ratio] 24.54 kg/m2 Jada Oliveros Other [facility] Other 05-31-2023 09:00-0400 Body weight 64.86 kg Jada Oliveros Other [facility] Other 05-31-2023 09:00-0400 Diastolic blood pressure 65 mm[Hg] Jada Oliveros Other [facility] Other 05-31-2023 09:00-0400 Systolic blood pressure 98 mm[Hg] Jada Oliveros Other [facility] Other 11-08-2022 16:15-0400 Body height 162.56 cm Jada Oliveros Other [facility] Other 11-08-2022 16:15-0400 Body mass index (BMI) [Ratio] 25.4 kg/m2 Jada Oliveros Other [facility] Other 11-08-2022 16:15-0400 Body temperature 97.4 [degF] Jada Oliveros Other [facility] Other 11-08-2022 16:15-0400 Body weight 67.13 kg Jada Oliveros Other [facility] Other 11-08-2022 16:15-0400 Diastolic blood pressure 74 mm[Hg] Jada Oliveros Other [facility] Other 11-08-2022 16:15-0400 SaO2% (BldA) [Mass fraction] 99 % Jada Oliveros Other [facility] Other 11-08-2022 16:15-0400 Systolic blood pressure 120 mm[Hg] Jada Oliveros Other [facility] Other 06-12-2022 12:15-0400 Body height 162.56 cm Yolis James Other [facility] Other 06-12-2022 12:15-0400 Body mass index (BMI) [Ratio] 25.74 kg/m2 Yolis James Other [facility] Other 06-12-2022 12:15-0400 Body temperature 98.1 [degF] Yolis James Other [facility] Other 06-12-2022 12:15-0400 Body weight 68.04 kg Yolis James Other [facility] Other 06-12-2022 12:15-0400 Diastolic blood pressure 61 mm[Hg] Yolis James Other [facility] Other 06-12-2022 12:15-0400 Respiratory rate 18 /min Yolis James Other [facility] Other 06-12-2022 12:15-0400 SaO2% (BldA) [Mass fraction] 100 % Yolis James Other [facility] Other 06-12-2022 12:15-0400 Systolic blood pressure 108 mm[Hg] Yolis James Other [facility] Other Encounters Encounter Date Encounter Type Care Provider Facility Start: 07-04-2024 End: 07-04-2024 ambulatory Not Available Start: 07-04-2024 End: 07-04-2024 Office outpatient visit 5 minutes Noms Maria Del Rosario Ob Bryant Nurse [facility] Comment on above: GA: 12w4d Start: 05-31-2023 End: 05-31-2023 ambulatory Jada Oliveros Other [facility] Other Start: 05-31-2023 Office outpatient visit 15 minutes Jada Oliveros [facility] Start: 01-17-2023 End: 01-25-[address] ANA PAULA HURTADO . Facility:[facility] Start: 01-09-2023 End: 01-10-[address] ANA PAULA HURTADO . Facility:[facility] Start: 11-26-2022 Letter encounter Luisa Ge APRN-MEDICAL SCRIBE Work Phone: [facility] Start: 11-21-2022 End: 11-21-[address] ANA PAULA HURTADO . Facility:[facility] Start: 11-21-2022 End: 11-22-[address] ANA PAULA HURTADO . Facility:[facility] Start: 11-08-2022 End: 11-08-2022 ambulatory Jada Oliveros Other [facility] Other Start: 11-08-2022 Office outpatient visit 15 minutes Jada Oliveros [facility] Start: 10-11-2022 End: 10-12-[address] ANA PAULA HURTADO . Facility:[facility] Start: 09-23-2022 End: 09-24-[address] ANA PAULA HURTADO . Facility:[facility] Start: 09-04-2022 Letter encounter Luisa Ge APRN-MEDICAL SCRIBE Work Phone: [facility] Start: 07-12-2022 End: 07-12-[address] ANA PAULA HURTADO . Facility:[facility] Start: 06-29-2022 End: 06-30-[address] ANA PAULA HURTADO . Facility:[facility] Start: 06-12-2022 End: 06-12-2022 ambulatory Yolis James Other [facility] [employer] Other Start: 06-12-2022 Office outpatient ne w 20 minutes Yoils James [facility] Start: 05-05-[address] ANA PAULA HURTADO . Facili ty:[facility] Start: 04-27-2022 End: 04-28-[address] ANA PAULA HURTADO . Facility:[facility] Start: 03-23-2022 End: 03-24-[address] ANA PAULA HURTADO . Facility:[facility] Start: 02-25-2022 End: 02-26-[address] ANA PAULA HURTADO . Facility:[facility] Start: 02-24-2022 End: 02-25-2022 ambulatory NONE LISTED REQUEST Facility: Start: 05-11-2020 ambulatory Swathi Cornejo acility:[facility] Start: 11-07-2018 End: 11-08-2018 Emergency department patient visit NO FAMILY DOCTOR NO FAMILY DOCTOR Facility:[facility] [employer] Start: 09-21-2017 Emergency department patient visit No Family Physician Facility:[facility] Procedures Date Procedure Procedure Detail Performing Clinician Start: 07-04-2024 Urnls dip stick/tabl et rgnt non-auto w/o micrscp Ana Paula Hurtado DO Work Phone: Start: 07-08-2019 Microscopic observat ion [Identifier] in Cervix by Cyto stain Luisa Ge APRN-MEDICAL SCRIBE Work Phone: Plan of Treatment Date Care Activity Detail Author Start: 2036 Shingles (RZV) Vacci ne (1 of 2) Shingles (RZV) Vaccine (1 of 2) [facility] Start: 07-31-2024 End: 07-31-2024 Patient encounter procedure 07/31/2024 2:40 PM EST Routine [facility] [address] [place] [address] Ana Paula Hurtado, DO [address] [place] [address] [facility] Start: 07-04-2024 End: 07-04-2025 ABO/Rh ABO/Rh Lab Routine Missed menses , unspecified gestational age Expected: 07/04/2024 (Approximate), Expires: 07/04/2025 [facility] Comment on above: Expected: 07/04/2024 (Approximate), Expires: 07/04/2025 Start: 07-04-2024 End: 07-04-2025 Blood type and Indirect antibody screen panel - Blood Type and screen Lab Routine Missed menses , unspecified gestational age Expected: 07/04/2024 (Approximate), Expires: 07/04/2025 [facility] Work Phone: Comment on above: Expected: 07/04/2024 (Approximate), Expires: 07/04/2025 Start: 07-04-2024 End: 07-04-2025 Drugs of abuse panel - Urine by Screen method Rapid drug screen, urine Lab Routine , unspecified gestational age Encounter for supervision of normal first in first trimester Expected: 07/04/2024 (Approximate), Expires: 07/04/2025 [facility] Comment on above: Expected: 07/04/2024 (Approximate), Expires: 07/04/2025 Start: 06-26-2023 Tetanus vaccination Tetanus (T d or Tdap) Booster [facility] Start: 07-08-2022 Screening for malign ant neoplasm of cervix Pap Smear [facility] Start: 05-28-2022 Influenza vaccination Influenza Vacc ine (#1) [facility] Start: 02-23-1987 COVID-19 Vaccine (#1) COVID-19 Vacci ne (#1) [facility] Start: 1985 Screening for malign ant neoplasm of breast Mammography shared decision making (35 through 39 years) [facility] Bacteria identified in Urine by Culture Urine culture Microbiology Routine Missed menses Ordered: 07/04/2024 [facility] Comment on above: Ordered: 07/04/2024 CBC W Auto Different ial panel - Blood CBC and differential Lab Routine Missed menses , unspecified gestational age Ordered: 07/04/2024 [facility] Comment on above: Ordered: 07/04/2024 Hemoglobin A1c/Hemoglobin.total in Blood Hemoglobin A1c Lab Routine Missed menses , unspecified gestational age Ordered: 07/04/2024 [facility] Comment on above: Ordered: 07/04/2024 Hepatitis B virus surface Ag [Presence] in Serum or Plasma by Immunoassay Hepatitis B surface antigen Lab Routine Missed menses , unspecified gestational age Ordered: 07/04/2024 [facility] Comment on above: Ordered: 07/04/2024 Hepatitis C virus Ab [Presence] in Serum or Plasma by Immunoassay Hepatitis C antibody Lab Routine Missed menses , unspecified gestational age Ordered: 07/04/2024 [facility] Comment on above: Ordered: 07/04/2024 HIV-1/HIV-2 antigen/antibody combination immunoassay HIV-1 and HIV-2 antibodies Lab Routine Missed menses , unspecified gestational age Ordered: 07/04/2024 [facility] Comment on above: Ordered: 07/04/2024 Reagin Ab [Presence] in Serum by RPR RPR Lab Routine Missed menses , unspecified gestational age Ordered: 07/04/2024 [facility] Comment on above: Ordered: 07/04/2024 Rubella antibody, IgG Rubella an tibody, IgG Lab Routine Missed menses , unspecified gestational age Ordered: 07/04/2024 [facility] Comment on above: Ordered: 07/04/2024 Immunizations Immunization Date Immunization Notes Care Provider Ubaldo araujo 10-23-2013 tuberculin skin test ; purified protein derivative solution, intradermal Luisa Ge [employer]PER[employer] [facility] Work Phone: [facility] 06-26-2013 tetanus toxoid, redu thalia diphtheria toxoid, and acellular pertussis vaccine, adsorbed Luisa Joo [employer] [facility] Work Phone: [facility] 05-08-2013 human papilloma viru s vaccine, quadrivalent Luisa Joo SUPER[employer]OR [employer] Work Phone: [facility] 01-10-2013 human papilloma viru s vaccine, quadrivalent Luisa Joo [employer]PER[employer] [facility] Work Phone: [facility] 11-15-2012 human papilloma viru s vaccine, quadrivalent Luisa Joo SUPER[employer]OR [employer] Work Phone: [facility] 10-16-2010 tetanus toxoid, redu thalia diphtheria toxoid, and acellular pertussis vaccine, adsorbed Luisa Ross SUPER[employer]OR [employer] Work Phone: [facility] Payers Date Payer Category Payer [facility] BCBS [id number] [address] [place] [id number] [id number] 2013 Medicaid [id number] 1985 Unknown [id number] 2.16.840.1.086367.3.579.2. 355 1985 Unknown [id number] 2.16.840.1.774416.3.579.2. 732 1985 Unknown [id number] 2.16.840.1.525331.3.579.2. 593 1985 Unknown [id number] 2.16.840.1.933007.3.579.2. 593 1986 Unknown [id number] 2.16.840.1.421031.3.579.2. 593 1986 Unknown [id number] 2.16.840.1.045818.3.579.2. 593 1986 Unknown [id number] 2.16.840.1.110120.3.579.2. 593 1986 Unknown [id number] 2.16.840.1.790572.3.579.2. 593 1986 Unknown [id number] 2.16.840.1.515262.3.579.2. 593 1986 Unknown [id number] 2.16.840.1.658912.3.579.2. 593 1986 Unknown [id number] 2.16.840.1.014724.3.579.2. 593 1986 Unknown [id number] 2.16.840.1.437914.3.579.2. 593 1986 Unknown [id number] 2.16.840.1.394569.3.579.2. 593 1986 Unknown [id number] 2.16.840.1.687568.3.579.2. 593 1986 Unknown [id number] 2.16.840.1.556206.3.579.2. 593 1985 Unknown [id number] 1958 [address] [id number] 1958 Medicaid [id number] Social History Date Type Detail Facility Sex Assigned At [facility] Start: 10-17-2017 Tobacco smoking status SCIS Ex-smoker [facility] End: 03-28-2017 History of tobacco use Current smoker [facility] End: 03-28-2017 History of tobacco use Cigarette Smoker [facility] Start: 10-17-2017 End: 04-17-2020 Cigarettes smoked current (pack per day) - Reported 0.5 [facility] Start: 10-17-2017 Tobacco use and exposure Smokeless tobacco non-user [facility] Start: 04-17-2020 Alcohol intake Current drinker of alcohol (finding) [facility] Start: 10-17-2017 Tobacco Comment Patient quit March 2017 [facility] Start: 1985 Sex Assigned At Female [facility] Tobacco smoking stat us [facility] Tobacco smoking consumption unknown [facility] Start: 04-21-2024 [facility] Start: 06-03-2023 Gender identity Identifies as female gender (finding) [facility] Start: 06-03-2023 Sexual orientation Heterosexual (finding) [facility] History of Present illness Narrative 07-04-2024 Shannon Farr, OPHTHALMIC DISPENSER - 07/04/2024 2:30 PM EST Note Date & Type Note Facility 07-04-2024 History of Presen t illness Narrative Reason for Appointment: Patient ID: Fartun Hall is a 38 y.o. female who presents for Amenorrhea Patient presents today for a Nurse OB Intake appointment. Patient is 12w4d with a Estimated Date of Delivery: 01/12/25 OB History Para Term AB Living 2 1 SAB IAB Ectopic Multiple Live Births 1 # Outcome Date GA Lbr Chris/2nd Weight Sex Type Anes PTL Lv 2 Current 1 SAB Current Medications: has a current medication list which includes the following prescription(s): cyanocobalamin, folic acid, multivitamin, and mv-min-fe fum-fa-dha. Medical History: Active Ambulatory Problems Diagnosis Date Noted No Active Ambulatory Problems Resolved Ambulatory Problems Diagnosis Date Noted No Resolved Ambulatory Problems Past Medical History: Diagnosis Date Infertility associated with anovulation No family history on file. Social History Tobacco Use Smoking status: Not on file Smokeless tobacco: Not on file Substance Use Topics Alcohol use: Not on file Drug use: Not on file History reviewed. No pertinent surgical history. No Known Allergies Vitals: Estimated body mass index is 27.48 kg/m as calculated from the following: Height as of 11/21/22: 5' 4 . Weight as of this encounter: 160 lb 1.9 oz. BP: 110/60 No LMP recorded. Patient is . Assessment/Plan Diagnoses and all orders for this visit: Missed menses - Type and screen; Future - ABO/Rh; Future - CBC and differential - Hemoglobin A1c - RPR - Rubella antibody, IgG - Hepatitis B surface antigen - Hepatitis C antibody - HIV-1 and HIV-2 antibodies - Urine culture - POCT , urine manually resulted - POCT urinalysis dipstick manually resulted , unspecified gestational age - Type and screen; Future - ABO/Rh; Future - CBC and differential - Hemoglobin A1c - RPR - Rubella antibody, IgG - Hepatitis B surface antigen - Hepatitis C antibody - HIV-1 and HIV-2 antibodies - Rapid drug screen, urine; Future Encounter for supervision of normal first in first trimester - Rapid drug screen, urine; Future Nurse Note: OB Intake: Patient presents today for first OB visit. Patients history has been reviewed in great detail including any potential risks. Patient signed consent forms and patient desires testing in both trimesters. Patient currently has no complaints and has been advised to drink 6-8 glasses of water a day, eat no raw or undercooked meat, and stay away from [facility]. Patient has also been advised to not change litter boxes and eat 6 small meals a day. Patient has been consulted regarding the do's and don'ts of . Patient was given labs and all questions and concerns were answered. Follow Up: Patient is to return in 4 weeks for routine OB appointment. Follow Up: Patient is to have labs drawn at directed and return to office for initial OB appointment with provider. Patient may call office as needed with any concerns or questions. Nurse Visit Completed by: Shannon Farr LPN documented in this encounter [facility] Evaluation note 05-31-2023 Note Date & Type Note Facility 05-31-2023 Evaluation note Encounter Date Diagnosis Assessment Notes May, Dandruff in adult (ICD-10 - L21.0) Trial of medicated shampoo. Call if no improvement. [facility] Evaluation note 11-08-2022 Note Date & Type Note Facility 11-08-2022 Evaluation note Encounter Date Diagnosis Assessment Notes Oct, Chronic eczematous otitis externa of both ears (ICD-10 - H60.8X3) Discussed treatment. Will add drop with steroid component. Discussed proper hearing protection - possibly ear muff style. Also discussed ENT referral if needed. [facility] Evaluation note 06-12-2022 Note Date & [...] water inside ear after shower may use global creative chairman on lowest cool setting to blow dry. Follow up with PCP or UC if no improvement in the next 2-3 days. Immediate eval for severe ear pain, severe headache, neck pain/stiffness, pain, erythema, or swelling behind the ear, fever, N/V, hearing loss, fever, or any other new or concerning symptoms. Patient verbalizes understanding and is agreeable to treatment plan [facility] Evaluation note Note Date & Type Note Facility Evaluation note Diagnosis Missed menses , unspecified gestational age Encounter for supervision of normal first in first trimester documented in this encounter [facility] History general Narrative - Reported Note Date [...] REPIAR 2017 Hospitalization History SEE SURGICAL HX [facility] Summary Purpose Family History No Family History Records FoundNo Family History Records FoundNo Family History Records FoundNo Family History Records FoundNo Family History Records FoundNo Family History Records FoundNo Family History Records Found Advance Directives No Advanced Directives Records FoundLatest Code Status on File Code Status Date Activated Date Inactivated Comments Full Code 05/29/2019 12:48 PM 05/30/2019 10:47 PM Latest Code Status on File Code Status Date Activated Date Inactivated Comments Full Code 05/29/2019 12:48 PM 05/30/2019 10:47 PM Additional Source Comments INFORMATION SOURCE (unrecogn ized section and content) DATE CREATED AUTHOR 02/19/2018 [facility] DATE CREATED AUTHOR AUTHOR'S ORGANIZ ATION 11/14/2018 [facility] DATE CREATED AUTHOR AUTHOR'S ORGANIZ ATION 09/17/2020 [facility] DATE CREATED AUTHOR AUTHOR'S ORGANIZ ATION 12/23/2020 [facility] DATE CREATED AUTHOR AUTHOR'S ORGANIZ ATION 10/21/2021 [facility] DATE CREATED AUTHOR AUTHOR'S ORGANIZ ATION 02/03/2023 [facility] DATE CREATED AUTHOR AUTHOR'S ORGANIZ ATION 07/06/2024 [facility] EPIC REASON FOR VISIT (unrecogniz ed section and content) Reason Comments Amenorrhea Care Teams (unrecognized sec tion and content) Nutrition Director Relationship Specialty Start Date End Date Luisa Ge APRN-CNP [address] [place], [place] [phone] HEAD REFRIGERATION ENGINEER Pulmonary Medicine 06/02/20 Jamie Hardin MD [address] [place] [id number] Physician General Surgery 06/02/20 Page Faulkner M.Ed., R.Keyana., L.D. [address] [id number] Dietitian Nutrition 06/02/20 Rita Catherine MD [address] [place] [phone] Physician Obstetrics/Gynecology 06/02/20 Rishabh Hi APRN-MEDICAL SCRIBE [address] [place] [id number] HEAD REFRIGERATION ENGINEER Anesthesiology 06/02/20 Nutrition Director Relationship Specialty Start Date End Date Luisa Ge APRN-CNP [address] [place] [phone] HEAD REFRIGERATION ENGINEER Pulmonary Medicine 06/02/20 Jamie Hardin MD [address] [place] [phone] Physician General Surgery 06/02/20 Page Faulkner M.Ed., R.D., L.D. [address] [address] Dietitian Nutrition 06/02/20 Rita Catherine MD [address] [place] [phone] Physician Obstetrics/Gynecology 06/02/20 Rishabh Hi, SUPERVISOR JEWELRY DEPARTMENT-MEDICAL SCRIBE [address] [place] [place] [phone] HEAD REFRIGERATION ENGINEER Anesthesiology 06/02/20 Nutrition Director Relationship Specialty Start Date End Date Jada Oliveros MD [address] [place] [phone] PCP - General Family Medicine 03/29/23 FOR RECORDS PERTAINING TO PATIENTS WHO ARE [...] BE BASED ON THE PRIMARY CLINICAL RECORDS. [employer] provides no warranty or guarantee of the accuracy or completeness of information in this document.
[2024-07-17 16:12] LABS: Basophils Absolute Auto 0.1 10^3/uL (0.0-0.1); Basophils Percent Auto 0.6 % (0.2-2.0); Eosinophils Absolute Auto 0.4 10^3/uL (0.0-0.7); Eosinophils Percent Auto 3.7 % (0.9-7.0); Hematocrit 36.3 % (36.0-48.0); Hemoglobin 11.7 g/dL (12.0-16.0); Immature Granulocytes Abs Auto 0.03 10^3/uL (0.00-0.03); Immature Granulocytes Pct Auto 0.3 % (0.0-0.5); Lymphocytes Absolute Auto 3.1 10^3/uL (1.2-3.8); Lymphocytes Percent Auto 31.7 % (20.5-60.0); Mean Corpuscular HGB Conc 32.2 g/dL (29.9-35.2); Mean Corpuscular Hemoglobin 27.7 pg (26.7-34.0); Mean Corpuscular Volume 85.8 fL (81.0-99.0); Mean Platelet Volume 11.9 fL (9.5-13.5); Monocytes Absolute Auto 0.6 10^3/uL (0.3-0.8); Monocytes Percent Auto 6.3 % (1.7-12.0); Neutrophils Absolute Auto 5.6 10^3/uL (1.4-6.5); Neutrophils Percent Auto 57.4 % (43.0-75.0); Platelet Count 306 10^3/uL (150-450); Red Blood Count 4.23 10^6/uL (4.20-5.40); Red Cell Distribution Width 13.1 % (11.0-15.0); White Blood Count 9.8 10^3/uL (4.0-11.0)
[2024-07-17 16:24] LABS: Amphetamine Screen Urine NEGATIVE (NEGATIVE); Barbiturates Screen Urine NEGATIVE (NEGATIVE); Benzodiazepines Screen Urine NEGATIVE (NEGATIVE); Buprenorphine Screen Urine NEGATIVE (NEGATIVE); Cannabinoid Screen Urine NEGATIVE (NEGATIVE); Cocaine Screen Urine NEGATIVE (NEGATIVE); Methadone Screen Urine NEGATIVE (NEGATIVE); Methamphetamines Screen Urine NEGATIVE (NEGATIVE); Opiate Screen Urine NEGATIVE (NEGATIVE); Oxycodone Screen Urine NEGATIVE (NEGATIVE); Phencyclidine Screen Urine NEGATIVE (NEGATIVE); Tricyclic Antidepressant Urine NEGATIVE (NEGATIVE)
[2024-07-17 16:29] LABS: Estimated Average Glucose 94 mg/dL; Glycohemoglobin A1C 4.9 % (4.5-6.2)
[2024-07-19 07:12] LABS: HBsAg Screen Negative (Negative); HCV Ab Non Reactive (Non Reactive); HIV Ab/p24 Ag Screen Non Reactive (Non Reactive)
[2024-07-19 08:13] LABS: Rubella Antibodies, IgG <0.90 index (Immune >0.99)
[2024-07-19 11:10] LABS: Rapid Plasma Reagin, Quant Non Reactive titer (NonRea<1:1)
== END 2024-07-17 15:38 | disposition home or self-care (01) ==
LOC: LAB 15:39
PROVIDERS: PCP Family Medicine; Visit Provider Obstetrics & Gynecology
DX: Z34.01 Encounter for supervision of normal first pregnancy, first trimester (principal); N92.6 Irregular menstruation, unspecified
CPT/HCPCS: 36415; 80307; 83036; 85025; 86592; 86762; 86803; 86850; 86900; 86901; 87086; 87340; 87389

== ENCOUNTER 2024-07-31 19:54 | Outpatient (REF) | payer BC, SELFPAY ==
--- OUTSIDE RECORDS SUMMARY | 2024-07-31 19:57 | XMS_ITS | CCD ---
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 Role Phone No Family Physician Unavailable Unavailable No Family Physician Unavailable Unavailable NO FAMILY DOCTOR, NO FAMILY DOCTOR Primary Care Unavailable YANIRA MARTINO Attending Unavailable Swathi DANIEL Referring Unavailab le PROVIDER, UNKNOWN Attending Unavailable PROVIDER, UNKNOWN Admitting Unavailable WILSON CASTRO Primary Care Unavailable Yolis James Unavailable Joo PACKER, Luisa Unavailable [phone] Lashawn MESSER, Jamie Unavailable Kaushik West, R.Keyana., L.D., Page Unavailable Florin MESSER, Rita Unavailable Sussy PACKER, Rishabh NAlexia Unavailable [phone] Jada Oliveros Unavailable Joo PACKER, Luisa Unavailable Lashawn MESSER, Jamie Unavailable [phone] Kaushik West, R.Keyana., L.D., Page Unavailable Florin MESSER, Rita Unavailable Sussy PACKER, Rishabh N. Unavailable BRYANT ., DR GOSS Attending Unavailable BRYANT ., DR GOSS Admitting Unavailable ARLIN, DR JADA Corey Primary Care Unavailable BRYANT ., DR GOSS Consulting Unavailable REQUEST, DR GARAY LISTED Primary Care Unavaila ble BRYANT ., DR GOSS Attending Unavailable [place], DR YANIRA Steele Consulting Unavailable BRYANT ., [...] Drug Class(es) Dates Sig (Normalized) Sig (Original) amoxicillin 500 mg oral capsule (2 sources) Penicillin-class Antibacterial Start: 07-31-2024 End: 08-07-2024 take 1 capsule by mouth in the morning, then take 1 capsule by mouth in the evening, then take 1 capsule by mouth at bedtime amoxicillin (Amoxil) 500 MG capsule Indications: Ear infection Take 1 capsule (500 mg) by mouth in the morning and 1 capsule (500 mg) in the evening and 1 capsule (500 mg) before bedtime. Do all this for 7 days. 21 capsule 07/31/2024 08/07/2024 Active cholecalciferol 0.05 mg oral tablet (2 sources) [...] times daily. 60 Capsule 3 05/30/2019 Active fluticasone propionate 0.05 mg/actuat metered dose nasal spray (2 sources) Corticosteroid Start: 07-31-2024 End: 07-31-2025 take 1 spray(s) nasal route once daily fluticasone (Flonase Allergy Relief) 50 MCG/ACT nasal spray Indications: Ear infection Administer 1 spray into each nostril Daily Shake gently. Before first use, prime pump. After use, clean tip and replace cap. 16 g 12 07/31/2024 07/31/2025 Active folic acid 1 mg oral tablet (5 sources) take 1 tablet by mouth once daily folic acid (Folvite) 1 MG tablet Take 1 mg by mouth Daily Active humidifier (2 sources) Start: 09-21-2018 humidifier Dispense humidifier covered by insurance to use as directed 1 Each 0 09/21/2018 Active hydrocortisone 10 mg/ml / neomycin 3.5 mg/ml / polymyxin b 21167 unt/ml otic solution (1 source) Aminoglycoside Antibacterial, [...] Once a day Active multivitamin (Theragran) tablet (5 sources) take 1 tablet by mouth once daily [...] 05/30/2019 Active MV-Min-Fe Fum-FA-DHA ( 1 PO) (5 sources) MV-Min- Fe Fum-FA-DHA ( 1 PO) Take [...] Active vitamin b12 0.1 mg oral tablet (8 sources) Vitamin B12 Start: 10-29-2018 take 1 [...] sources) Headache; Translations: [Headache] Onset: 11-07-2018 Episodic Immunizations and screening for infectious disease (2 sources) Exposure to sexually transmissible disorder; Translations: [Contact with and (suspected) exposure to infections with a predominantly sexual mode of transmission] 07-31-2024 Episodic Menstrual disorders (13 sources) Amenorrhea; Translations: [...] ovarian syndrome; Translations: [POLYCYSTIC OVARIAN SYNDROME] Onset: 05-15-2023 Chronic Other endocrine disorders (2 sources) Disorder [...] tube and broad ligament, unspecified] Episodic Other female genital disorders (2 sources) Vaginal discharge; Translations: [Other specified noninflammatory disorders of vagina] 07-31-2024 Episodic Other gastrointestinal disorders (2 sources) History [...] adiposity] Chronic Other and delivery including normal (8 sources) Encounter for test, result positive; Translations: [] Onset: 01-17-2023 Episodic Other screening for suspected conditions (not mental disorders or infectious disease) (7 sources) Encounter for screening for malignant neoplasm of cervix; Translations: [Patient encounter status] Onset: 11-21-2022 Episodic Other upper respiratory disease (2 sources) Chronic rhinitis; Translations: [Chronic rhinitis] Onset: 09-22-2018 09-22-2018 Chronic Otitis media and related conditions (2 sources) Infection of ear; Translations: [Otitis media, unspecified, unspecified ear] 07-31-2024 Episodic Residual codes; unclassified (2 sources) Obstructive sleep apnea of adult; Translations: [Obstructive sleep apnea (adult) (pediatric)] Onset: 12-14-2018 05-30-2019 Chronic Residual codes; unclassified (2 sources) Gestation period, 16 weeks; Translations: [16 weeks gestation of ] 07-31-2024 Episodic Unclassified (1 source) Unknown / UNK(Unknown) Onset: [...] Test Name Value Interpretation Reference Range Facility Urinalysis macro (dipstick) panel (U)on 07-31-2024 Bilirubin, UA Negative Negative - 4(70) +++ mg/dL [facility] Blood, UA Negative Negative - 50 Nnamdi/mcL [facility] Clarity, UA Clear [facility] Color, UA Yellow [facility] Glucose, UA Negative Negative - 1999(110) ++++ mg/dL [facility] Interpretation and review of laboratory results Normal [facility] Ketones, UA Negative Negative - 160(16) ++++ mg/dL [facility] Leukocytes, UA Negative Negative - 500+++ Dilcia/mcL [facility] Nitrite, UA Negative Negative - Positive [facility] pH, UA 6 5 - 9 [facility] Protein, UA Negative Negative - 1999(20) ++++ mg/dL [facility] Spec Grav, UA 1.015 1 - 1.03 [facility] Urobilinogen, UA 1.0 0.2 - 12 mg/dL [facility] ALL CBC WITH AUTO DIFFon BASOPHILS ABSOLUTE AUTO 0.1 [facility] Basophils/100 WBC (Bld) 0.6 % 0.2 - 2.0 % [facility] Eosinophils/100 WBC (Bld) 3.7 % 0.9 - 7.0 % [facility] Erythrocyte distribution width (RBC) [Ratio] 13.1 % 11.0 - 15.0 % [facility] Hematocrit (Bld) [Volume fraction] 36.3 % 36.0 - 48.0 % [facility] Hemoglobin (Bld) [Mass/Vol] 11.7 g/dL Low 12.0 - 16.0 g/dL [facility] IMMATURE GRANULOCYTES ABS AUTO 0.03 [facility] Immature granulocytes/100 WBC (Bld) 0.3 % 0.0 - 0.5 % [facility] Interpretation and review of laboratory results Abnormal [facility] LYMPHOCYTES ABSOLUTE AUTO 3.1 [facility] Lymphocytes/100 WBC (Bld) 31.7 % 20.5 - 60.0 % [facility] MCH (RBC) [Entitic mass] 27.7 pg 26.7 - 34.0 pg [facility] MCHC (RBC) [Mass/Vol] 32.2 g/dL 29.9 - 35.2 g/dL [facility] MCV (RBC) [Entitic vol] 85.8 fL 81.0 - 99.0 fL [facility] MONOCYTES ABSOLUTE AUTO 0.6 [facility] Monocytes/100 WBC (Bld) 6.3 % 1.7 - 12.0 % [facility] NEUTROPHILS ABSOLUTE AUTO 5.6 [facility] Neutrophils/100 WBC (Bld) 57.4 % 43.0 - 75.0 % [facility] Platelet mean volume (Bld) [Entitic vol] 11.9 fL 9.5 - 13.5 fL [facility] TBH EO # 0.4 [facility] PLT 306 [facility] RBC 4.23 [facility] WBC 9.8 [facility] HCG ( test) Ql (U)o n 07-04-2024 Interpretation and review of laboratory results Abnormal [facility] Preg Test, Ur Positive Negative [facility] Urinalysis macro (dipstick) panel (U)on 07-04-2024 Bilirubin, UA Negative Negative - 4(70) +++ mg/dL [facility] Blood, UA Positive Negative - 50 Nnamdi/mcL [facility] Comment on above: trace-intact Clarity, UA Clear [facility] Color, UA Yellow [facility] Glucose, UA Negative Negative - 1999(110) ++++ mg/dL [facility] Interpretation and review of laboratory results Abnormal [facility] Ketones, UA Negative Negative - 160(16) ++++ mg/dL [facility] Leukocytes, UA Negative Negative - 500+++ Dilcia/mcL [facility] Nitrite, UA Negative Negative - Positive [facility] pH, UA 6 5 - 9 [facility] Protein, UA Negative Negative - 1999(20) ++++ mg/dL [facility] Spec Grav, UA 1.03 1 - 1.03 [facility] Urobilinogen, UA 0.2 0.2 - 12 mg/dL [facility] PREG QUANT HCGon 01-17-2023 HCG QUANT <1 Normal [facility] Comment on above: Performed By: #### P REGQNT #### [facility] [address] [address] [address] Meghan Vital HCG RANGE SEE BELOW Normal [facility] Comment on above: Result Comment: 5-50 0.2-1 WEEK 50-500 1-2 WEEKS 100-5,000 2-3 WEEKS 500-10,000 3-4 WEEKS 1,000-50,000 4-5 WEEKS 10,000-100,000 5-6 WEEKS 15,000-200,000 6-8 WEEKS 10,000-100,000 2-3 MONTHS Performed By: #### P REGQNT #### [facility] [address] [place] [address] Dr. Meghan Vital PROGESTERONEon 01-10-2023 Progesterone 8.9 ng/mL [facility] Comment on above: Result Comment: Foll icular phase 0.1 - 0.9 Luteal phase 1.8 - 23.9 Ovulation phase 0.1 - 12.0 First trimester 11.0 - 44.3 Second trimester 25.4 - 83.3 Third trimester 58.7 - 214.0 Postmenopausal 0.0 - 0.1 Performed By: #### H CGSUB #### [facility] [address] [place] [address] Dr. Meghan Vital PAP ACOG PANEL 2: 30 to 65on 11-30-2022 . . Normal [facility] Comment on above: Result Comment: Perf ormed at: WB Performed By: #### [id number] #### [facility] [address] [place] [address] Dr. Meghan Vital Age Gdln ACOG Testing - [facility] Comment on above: Performed By: #### [id number] #### [facility] [address] [place] [address] Dr. Meghan Vital DIAGNOSIS: Comment Normal [facility] Comment on above: Result Comment: NEGA TIVE FOR INTRAEPITHELIAL LESION OR MALIGNANCY. Performed at: WB Performed By: #### [id number] #### [facility] [address] [place] [address] Dr. Meghan Vital HPV Aptima Positive Abnormal Negative [facility] Comment on above: Result Comment: This nucleic acid amplification test detects fourteen high-risk HPV types (16,18,31,33,35,39,45,51,52,56,58,59,66,68) without differentiation. Performed at: =G Performed By: #### [id number] #### [facility] [address] [place] [address] Dr. Meghan Vital HPV Genotype 16 Negative Normal Negative [facility] Comment on above: Performed By: #### [id number] #### [facility] [address] [place] [address] Dr. Meghan Vital HPV Genotype 18,45 Negative Normal Negative [facility] Comment on above: Performed By: #### [id number] #### [facility] [address] [place] [address] Dr. Meghan Vital HPV Genotype Reflex Comment Normal [facility] Comment on above: Result Comment: Aiyana iqbal, see HPV Genotype results. Performed at: WB Performed By: #### [id number] #### [facility] [address] [place] [address] Dr. Meghan Vital Methodology: Comment Normal [facility] Comment on above: Result Comment: This liquid based ThinPrep(R) pap test was screened with the use of an image guided system. Performed at: WB Performed By: #### [id number] #### [facility] [address] [place] [address] Dr. Meghan Vital Note: Comment Normal [facility] Comment on above: Result Comment: The Pap smear is a screening test designed to aid in the detection of premalignant and malignant conditions of the uterine cervix. It is not a diagnostic procedure and should not be used as the sole means of detecting cervical cancer. Both false-positive and false-negative reports do occur. . Performed at: WB Performed By: #### [id number] #### [facility] [address] [place] [address] Dr. Meghan Vital Performed by: Comment Normal [facility] Comment on above: Result Comment: Rahul Kincaid, Thread Twister (ASCP) Performed at: WB Performed By: #### [id number] #### [facility] [address] [place] [address] Dr. Meghan Vital Specimen adequacy: Comment Normal [facility] Comment on above: Result Comment: Sati sfactory for evaluation. Endocervical and/or squamous metaplastic cells (endocervical component) are present. Performed at: WB Performed By: #### [id number] #### [facility] [address] [place] [address] Dr. Meghan Vital ANTI-MULLERIAN HORMONEon Anti-Mullerian Hormone (AMH) 3.03 ng/mL Normal [facility] Comment on above: Result Comment: For assays employing antibodies, the possibility exists for interference by heterophile antibodies in the samples.1 1.Bailey Dickson Interferences in Immunoassays - still a threat. Clin. Chem. 2000; 46: 6155-6243. This test was developed and its performance characteristics determined by [employer]. It has not been cleared or approved by the Food and Drug Administration. Reference Range: Females 36 - 40y: 0.42 - 8.34 Median 1.69 AMH concentrations of >= 1.06 ng/mL is correlated with a better response to ovarian stimulation, produced more retrievable oocytes and higher odds of live according to Shaniceer et al. Fertility and Sterility. 2010: 94:9175-4284. The current AMH test method correlates with [...] tumor. Performed By: #### H CGSUB #### [facility] [address] [place] [address] Dr. Meghan Vital CBC AUTO DIFFon 11-21-2022 BASO # 0.1 103/ul Normal 0.0-0.1 [facility] Comment on above: Performed By: #### H CGSUB #### [facility] [address] [place] [address] Dr. Meghan Vital Basophils/100 WBC (Bld) 0.8 % Normal 0.2-2.0 [facility] Comment on above: Performed By: #### H CGSUB #### [facility] [address] [place] [address] Dr. Meghan Vital EO # 0.2 103/ul Normal 0.0-0.7 [facility] Comment on above: Performed By: #### H CGSUB #### [facility] [address] [place] [address] Dr. Meghan Vital Eosinophils/100 WBC (Bld) 2.3 % Normal 0.9-7.0 [facility] Comment on above: Performed By: #### H CGSUB #### [facility] [address] [place] [address] Dr. Meghan Vital Erythrocyte distribution width (RBC) [Ratio] 13.3 % Normal 11.0-15.0 [facility] Comment on above: Performed By: #### H CGSUB #### [facility] [address] [place] [address] Dr. Meghan Vital Hematocrit (Bld) [Volume fraction] 42.4 % Normal 36.0-48.0 [facility] Comment on above: Performed By: #### H CGSUB #### [facility] [address] [place] [address] Dr. Meghan Vital Hemoglobin (Bld) [Mass/Vol] 13.6 g/dL Normal 12.0-16.0 [facility] Comment on above: Performed By: #### H CGSUB #### [facility] [address] [place] [address] Dr. Meghan Vital IG # 0.01 10e3/ul Normal 0.00-0.03 [facility] Comment on above: Performed By: #### H CGSUB #### [facility] [address] [place] [address] Dr. Meghan Vital IG % 0.1 % Normal 0.0-0.5 [facility] Comment on above: Performed By: #### H CGSUB #### [facility] [address] [place] [address] Dr. Meghan Vital LYMPH # 3.9 103/ul Critically high 1.2-3.8 [facility] Comment on above: Performed By: #### H CGSUB #### [facility] [address] [place] [address] Dr. Meghan Vital Lymphocytes/100 WBC (Bld) 42.7 % Normal 20.5-60.0 [facility] Comment on above: Performed By: #### H CGSUB #### [facility] [address] [place] [address] Dr. Meghan Vital MANUAL DIFF REQ NO Normal [facility] Comment on above: Performed By: #### H CGSUB #### [facility] [address] [place] [address] Dr. Meghan Vital MCH (RBC) [Entitic mass] 27.4 pg Normal 26.7-34.0 [facility] Comment on above: Performed By: #### H CGSUB #### [facility] [address] [place] [address] Dr. Meghan Vital MCHC (RBC) [Mass/Vol] 32.1 g/dL Normal 29.9-35.2 [facility] Comment on above: Performed By: #### H CGSUB #### [facility] [address] [place] [address] Dr. Meghan Vital MCV (RBC) [Entitic vol] 85.3 fL Normal 81.0-99.0 [facility] Comment on above: Performed By: #### H CGSUB #### [facility] [address] [place] [address] Dr. Meghan Vital MONO # 0.6 103/ul Normal 0.3-0.8 [facility] Comment on above: Performed By: #### H CGSUB #### [facility] [address] [place] [address] Dr. Meghan Vital Monocytes/100 WBC (Bld) 6.1 % Normal 1.7-12.0 [facility] Comment on above: Performed By: #### H CGSUB #### [facility] [address] [place] [address] Dr. Meghan Vital NEUT # 4.3 103/ul Normal 1.4-6.5 [facility] Comment on above: Performed By: #### H CGSUB #### [facility] [address] [address] [address] Meghan Vital Neutrophils/100 WBC (Bld) 48.0 % Normal 43.0-75.0 [facility] Comment on above: Performed By: #### H CGSUB #### [facility] [address] [place] [address] Dr. Meghan Vital Platelet mean volume (Bld) [Entitic vol] 11.5 fL Normal 9.5-13.5 [facility] Comment on above: Performed By: #### H CGSUB #### [facility] [address] [place] [address] Dr. Meghan Vital PLT 251 103/ul Normal 150-450 [facility] Comment on above: Performed By: #### H CGSUB #### [facility] [address] [place] [address] Dr. Meghan Vital RBC 4.97 106/ul Normal 4.20-5.40 [facility] Comment on above: Performed By: #### H CGSUB #### [facility] [address] [place] [address] Dr. eMghan Vital WBC 9.0 103/ul Normal 4.0-11.0 [facility] Comment on above: Performed By: #### H CGSUB #### [facility] [address] [place] [address] Dr. Meghan Vital FREE T4on 11-21-2022 Free T4 [Mass/Vol] 1.03 ng/dL Normal 0.76-1.46 [facility] Comment on above: Performed By: #### F T4 #### [facility] [address] [place] [address] Dr. Meghan Vital GLYCOHEMOGLOBIN A1Con 2022 ADA RECOMMENDATION SEE BELOW Normal [facility] Comment on above: Result Comment: ADA RECOMMENDED LIMIT 4.0 - 6.0 ADA THERAPEUTIC TARGET < 7.0 ACTION SUGGESTED > 7.0 Performed By: #### H CGSUB #### [facility] [address] [place] [address] Dr. Meghan Vital Glucose [Mass/Vol] 97 mg/dL Normal [facility] Comment on above: Performed By: #### H CGSUB #### [facility] [address] [place] [address] Dr. Meghan Vital HbA1c (Bld) [Mass fraction] 5.0 % Normal 4.5-6.2 [facility] Comment on above: Performed By: #### H CGSUB #### [facility] [address] [place] [address] Dr. Meghan Vital TSHon 11-21-2022 TSH 1.636 uIU/mL Normal 0.358-3.74 0 [facility] Comment on above: Performed By: #### H CGSUB #### [facility] [address] [place] [address] Dr. Meghan Vital PROGESTERONEon 10-12-2022 Progesterone 6.8 ng/mL Normal [facility] Comment on above: Result Comment: Foll icular phase 0.1 - 0.9 Luteal phase 1.8 - 23.9 Ovulation phase 0.1 - 12.0 First trimester 11.0 - 44.3 Second trimester 25.4 - 83.3 Third trimester 58.7 - 214.0 Postmenopausal 0.0 - 0.1 Performed By: #### H CGSUB #### [facility] [address] [place] [address] Dr. Meghan Vital CBC AUTO DIFFon 09-23-2022 BASO # 0.1 103/ul Normal 0.0-0.1 [facility] Comment on above: Performed By: #### C BC #### [facility] [address] [place] [address] Dr. Meghan Vital Basophils/100 WBC (Bld) 1.2 % Normal 0.2-2.0 [facility] Comment on above: Performed By: #### C BC #### [facility] [address] [place] [address] Dr. Meghan Vital EO # 0.2 103/ul Normal 0.0-0.7 [facility] Comment on above: Performed By: #### C BC #### [facility] [address] [place] [address] Dr. Meghan Vital Eosinophils/100 WBC (Bld) 2.4 % Normal 0.9-7.0 [facility] Comment on above: Performed By: #### C BC #### [facility] [address] [place] [address] Dr. Meghan Vital Erythrocyte distribution width (RBC) [Ratio] 13.1 % Normal 11.0-15.0 [facility] Comment on above: Performed By: #### C BC #### [facility] [address] [place] [address] Dr. Meghan Vital Hematocrit (Bld) [Volume fraction] 38.1 % Normal 36.0-48.0 [facility] Comment on above: Performed By: #### C BC #### [facility] [address] [place] [address] Dr. Meghan Vital Hemoglobin (Bld) [Mass/Vol] 13.4 g/dL Normal 12.0-16.0 [facility] Comment on above: Performed By: #### C BC #### [facility] [address] [place] [address] Dr. Meghan Vital IG # 0.01 10e3/ul Normal 0.00-0.03 [facility] Comment on above: Performed By: #### C BC #### [facility] [address] [place] [address] Dr. Meghan Vital IG % 0.1 % Normal 0.0-0.5 [facility] Comment on above: Performed By: #### C BC #### [facility] [address] [place] [address] Dr. Meghan Vital LYMPH # 3.4 103/ul Normal 1.2-3.8 [facility] Comment on above: Performed By: #### C BC #### [facility] [address] [place] [address] Dr. Meghan Vital Lymphocytes/100 WBC (Bld) 45.2 % Normal 20.5-60.0 [facility] Comment on above: Performed By: #### C BC #### [facility] [address] [place] [address] Dr. Meghan Vital MANUAL DIFF REQ NO Normal [facility] Comment on above: Performed By: #### C BC #### [facility] [address] [place] [address] Dr. Meghan Vital MCH (RBC) [Entitic mass] 27.8 pg Normal 26.7-34.0 [facility] Comment on above: Performed By: #### C BC #### [facility] [address] [place] [address] Dr. Meghan Vital MCHC (RBC) [Mass/Vol] 35.2 g/dL Normal 29.9-35.2 [facility] Comment on above: Performed By: #### C BC #### [facility] [address] [place] [address] Dr. Meghan Vital MCV (RBC) [Entitic vol] 79.0 fL Critically low 81.0-99.0 [facility] Comment on above: Performed By: #### C BC #### [facility] [address] [place] [address] Dr. Meghan Vital MONO # 0.4 103/ul Normal 0.3-0.8 [facility] Comment on above: Performed By: #### C BC #### [facility] [address] [place] [address] Dr. Meghan Vital Monocytes/100 WBC (Bld) 5.3 % Normal 1.7-12.0 [facility] Comment on above: Performed By: #### C BC #### [facility] [address] [place] [address] Dr. Meghan Vital NEUT # 3.4 103/ul Normal 1.4-6.5 [facility] Comment on above: Performed By: #### C BC #### [facility] [address] [place] [address] Dr. Meghan Vital Neutrophils/100 WBC (Bld) 45.8 % Normal 43.0-75.0 [facility] Comment on above: Performed By: #### C BC #### [facility] [address] [place] [address] Dr. Meghan Vital Platelet mean volume (Bld) [Entitic vol] 11.4 fL Normal 9.5-13.5 [facility] Comment on above: Performed By: #### C BC #### [facility] [address] [place] [address] Dr. Meghan Vital PLT 280 103/ul Normal 150-450 [facility] Comment on above: Performed By: #### C BC #### [facility] [address] [place] [address] Dr. Meghan Vital RBC 4.82 106/ul Normal 4.20-5.40 [facility] Comment on above: Performed By: #### C BC #### [facility] [address] [place] [address] Dr. Meghan Vital WBC 7.5 103/ul Normal 4.0-11.0 [facility] Comment on above: Performed By: #### C BC #### [facility] [address] [place] [address] Dr. Meghan Vital FREE T4on 09-23-2022 Free T4 [Mass/Vol] 1.17 ng/dL Normal 0.76-1.46 [facility] Comment on above: Performed By: #### H CGSUB #### [facility] [address] [place] [address] Dr. Meghan Vital GLYCOHEMOGLOBIN A1Con 2022 ADA RECOMMENDATION SEE BELOW Normal [facility] Comment on above: Result Comment: ADA RECOMMENDED LIMIT 4.0 - 6.0 ADA THERAPEUTIC TARGET < 7.0 ACTION SUGGESTED > 7.0 Performed By: #### A 1C #### [facility] [address] [place] [address] Dr. Meghan Vital Glucose [Mass/Vol] 100 mg/dL Normal [facility] Comment on above: Performed By: #### A 1C #### [facility] [address] [place] [address] Dr. Meghan Vital HbA1c (Bld) [Mass fraction] 5.1 % Normal 4.5-6.2 [facility] Comment on above: Performed By: #### A 1C #### [facility] [address] [place] [address] Dr. Meghan Vital TSHon 09-23-2022 TSH 1.235 uIU/mL Normal 0.358-3.74 0 [facility] Comment on above: Performed By: #### T SH #### [facility] [address] [place] [address] Dr. Meghan Vtial PREG QUANT HCGon 07-12-2022 HCG QUANT 1 mIU/mL Normal [facility] Comment on above: Performed By: #### P REGQNT #### [facility] [address] [place] [address] Dr. Meghan Vital HCG RANGE SEE BELOW Normal [facility] Comment on above: Result Comment: 5-50 0.2-1 WEEK 50-500 1-2 WEEKS 100-5,000 2-3 WEEKS 500-10,000 3-4 WEEKS 1,000-50,000 4-5 WEEKS 10,000-100,000 5-6 WEEKS 15,000-200,000 6-8 WEEKS 10,000-100,000 2-3 MONTHS Performed By: #### P REGQNT #### [facility] [address] [place] [address] Dr. Meghan Vital XR HYSTEROSALPINGOGRAMon XR HYSTEROSALPINGOGRAM [...] by: YADIRA BAKER Date: 2022-07-12 12:12 Normal [facility] PROGESTERONEon 06-30-2022 Progesterone 20.9 ng/mL Normal [facility] Comment on above: Result Comment: Foll icular phase 0.1 - 0.9 Luteal phase 1.8 - 23.9 Ovulation phase 0.1 - 12.0 First trimester 11.0 - 44.3 Second trimester 25.4 - 83.3 Third trimester 58.7 - 214.0 Postmenopausal 0.0 - 0.1 Performed By: #### P PHIL #### [facility] [address] [place] [address] Dr. Meghan Vital HCG-BETA SUBUNIT QUANTon hCG,Beta Subunit,Qnt,Serum <1 Normal [facility] Comment on above: Result Comment: Fema le (Non-) 0 - 5 (Postmenopausal) 0 - 8 . Female () Weeks of Gestation 3 6 - 71 4 10 - 750 5 217 - 7138 6 158 - 55437 7 3697 -466002 8 63571 -291284 9 52281 -558032 10 44599 -901241 12 74192 -492123 14 21686 - 73473 15 01788 - 21805 16 9016 - 76438 17 8175 - 83186 18 8099 - 06474 Jeremy ECLIA methodology Performed By: #### H CGSUB #### [facility] [address] [place] [address] Dr. Meghan Vital HCG-BETA SUBUNIT QUANTon hCG,Beta Subunit,Qnt,Serum <1 Normal [facility] Comment on above: Result Comment: Fema le (Non-) 0 - 5 (Postmenopausal) 0 - 8 . Female () Weeks of Gestation 3 6 - 71 4 10 - 750 5 217 - 7138 6 158 - 64673 7 3697 -938477 8 18803 -013619 9 75047 -728516 10 83646 -700067 12 49532 -647411 14 11501 - 64099 15 77075 - 44052 16 9040 - 64210 17 8175 - 41688 18 8099 - 16053 Jeremy ECLIA methodology Performed By: #### H CGSUB #### [facility] [address] [place] [address] Dr. Meghan Vital PROGESTERONEon 02-26-2022 Progesterone <0.1 Normal [facility] Comment on above: Result Comment: Foll icular phase 0.1 - 0.9 Luteal phase 1.8 - 23.9 Ovulation phase 0.1 - 12.0 First trimester 11.0 - 44.3 Second trimester 25.4 - 83.3 Third trimester 58.7 - 214.0 Postmenopausal 0.0 - 0.1 Performed By: #### P PHIL #### [facility] [address] [place] [address] [address] Meghan Vital US PELVIS AND TRANSVAGon [...] YANIRA MICHAEL Date: 2022-02-24 16:57 Normal [facility] Ambulatory Clinical Summaryo n 12-22-2020 Ambulatory Clinical Summary {[id number]}CD:61 4368 Normal [facility] Family Medicine Office/Clini c Noteon 12-22-2020 [...] documented 3008F Office Visit Level 2 Est 76763 2. Tobacco use (Z72.0: Tobacco use) We [...] smoker 1034F Office Visit Level 2 Est 27324 3. Hordeolum externum right lower eyelid (H00.012: Hordeolum externum right lower eyelid) Will treat with bacitracin ointment. May use warm compresses 3-4 x day. FU with PCP if not gradually improving over next 7 days, sooner if significantly spreading erythema, edema, warmth, fever. Patient verbalized understanding of tx plan Ordered: Office Visit Level 2 Est 84564 Orders: erythromycin ophthalmic, 0.5 in, OPTH, QID for 7 day(s), 3.5 gm, Refill(s) 0, to right eye, [facility], 163, cm, 12/22/20 15:32:00 EDT, Height/Length Dosing, [...] 11/17/2020 Family History Family history is negative [facility] Comment on above: Result Comment: Elec [...] methods. Where to find more information ? [place] [employer]: www.lung.org ? [place] [employer]: www.cancer.org Summary ? Smoking cigarettes [...] Document Reviewed: 08/18/2017 Elsevier Patient Education ? 2019 [employer] [facility] Provider Letteron 12-22-2020 Provider Letter (Inserted Image. Mary ble to display) December 22, 2020 FARTUN RODRÍGUEZ [address] [place] [phone] FARTUN RODRÍGUEZ 1985 To Whom It May Concern, Please excuse above patient from work. Date of Illness:12/22/2020 May Return to Work On:12/23/2020 Comments: _ Patient was seen in office today, she may return at the date listed above Sincerely, [facility] [address] [place], [place] [id number] [facility] Ambulatory Clinical Summaryo n 11-17-2020 Ambulatory Clinical Summary {[id number]}CD:61 4368 [facility] Family Medicine Office/Clini c Noteon 11-17-2020 Family Medicine Office/Clinic Note Chief Complaint BRAND MGR cough HPI Staff Patient presents with cough [...] 6 tab(s), Refills(s) 0, Pharmacy: [facility], 163, cm, 11/17/20 16:59:00 EDT, Height/Length Dosing, 59, kg, 11/17/20 16:59:00 EDT, Weight Dosing benzonatate, 200 mg = 1 cap(s), Oral, TID, X 10 day(s), # 30 cap(s), Refills(s) 0, Pharmacy: [facility], 163, cm, 11/17/20 [...] 30 days Tobacco Use:. Cigarettes, Yes, 11/17/2020 Normal [facility] Comment on above: Result Comment: Elec tronically Signed By: SIDELL LASHANDA BHAGAT\.br\Date and Time Signed: 11/17/20 17:56 EDT Patient [...] young or very old. ? It is gayr or winter. ? You have close contact [...] to help relieve symptoms, such as: ? Fptu-fio-qhxfxlk cold medicines. ? Cough suppressants. Coughing is [...] other clear broths. General instructions ? 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 ? Avoid touching your mouth, face, eyes, [...] common infecti (more content not included)... Normal [facility] Provider Letteron 11-17-2020 Provider Letter (Inserted Image. Mary ble to display) November 17, 2020 FARTUN RODRÍGUEZ [address] [place] [phone] FARTUN RODRÍGUEZ 1985 To Whom It May Concern, Please excuse above patient from work. Date of Illness: From: 11/17/2020 To: 11/18/2020 May Return to Work On:11/19/2020 Comments: Patient anamaria was seen at [facility] on 11/17/2020. Sincerely, [facility] [address] [place] [address] [facility] Provider Letteron 09-22-2020 Provider Letter (Inserted Image. Mary ble to display) September 22, 2020 FARTUN RODRÍGUEZ [address] [place] [phone] FARTUN RODRÍGUEZ 1985 To Whom It May Concern, Please excuse above patient from work. Date of Illness: From: 09/22/2020 May Return to Work On:09/23/2020 Comments: The above patient may return back to work on the above date. Sincerely, [facility] [address] [place] [address] [facility] SURGICAL PATH REPORTon 07-31 SURGICAL PATH REPORT [facility] Department of Pathology [address] [place] [phone] Name: FATRUN RODRÍGUEZN: [id number] : 1985 Financial [id number] Number: Gender: Female Location: [facility] Admit 34 years Attending ANA PAULA HURTADO Age: Provider: Ordering ANA PAULA HURTADO Provider: Consulting: Surgical Pathology Report ACCESSION: COLLECTED DATE/TIME: RECEIVED DATE/TIME: PATHOLOGIST: [id number] 07/30/2020 13:19 EST 07/30/2020 13:19 EST SHADE MULLER MD Final Diagnosis Report for [facility] [place] [employer]: - [employer]. [...] cm. There are no grossly identifiable parts. Shucker sections are submitted in three cassettes. MP/ekaterina 07/30/2020 Tissue pathology report for: [facility], [address] [place] [address]; Print Date/ 07/31/2020 15:05 EST Number: Time: [facility] Department of Pathology [address] [place] [phone] Name: FARTUN RODRÍGUEZ : 1985 Financial [id number] Number: Gender: Female Location: [facility] Admit 34 years Attending ANA PAULA HURTADO Age: Provider: Ordering ANA PAULA HURTADO Provider: Consulting: Surgical Pathology Report ACCESSION: COLLECTED DATE/TIME: RECEIVED DATE/TIME: PATHOLOGIST: [id number] 07/30/2020 13:19 EST 07/30/2020 13:19 EST YOHANA MESSER, SHADE Gross Description PATHOLOGY SERVICES PROVIDED BY [employer] (CLIA #[id number]) in cooperation with [facility] at [address] [place] [address] (CLIA #[id number]) Codes CPT CODE: 62391 Print Date/ 07/31/2020 15:05 EST Number: Time: Normal [facility] Comment on above: Performed By: #### [id number] #### [facility] [address] [place] [address] Heat Treat Furnace Operator: Shade Muller MD Consenton 05-29-2020 Consent [id number]:127 Normal [facility] Registrationon 05-29-2020 Registration [id number]:127 [facility] Influenza A,Bon 11-08-2018 Influenza A, Rapid Ag Negative Normal Negative [facility] Comment on above: Performed By: #### 5 [id number] #### [facility] [address] [place] [address] Influenza B, Rapid Ag Negative Normal Negative [facility] Comment on above: Performed By: #### 5 [id number] #### [facility] [address] [place] [address] Urinalysis with Reflex Cultu reon 11-08-2018 Appearance Nom (U) Clear Normal Clear [facility] Comment on above: Performed By: #### U ARFX #### [facility] [address] [place] [address] Ascorbic Acid Negative Normal Negative [facility] Comment on above: Performed By: #### U ARFX #### [facility] [address] [place] [address] Automated Urine Microscopy Not indicated Normal [facility] Comment on above: Performed By: #### U ARFX #### [facility] [address] [place] [address] Bilirubin mass conc Negative Normal Negative [facility] Comment on above: Performed By: #### U ARFX #### [facility] [address] [place] [address] Blood Negative Normal Negative [facility] Comment on above: Performed By: #### U ARFX #### [facility] [address] [place] [address] Color Nom (U) Yellow Normal [facility] Comment on above: Performed By: #### U ARFX #### [facility] [address] [place] [address] Glucose mass conc 50 mg/dL Abnormal Negative [facility] Comment on above: Performed By: #### U ARFX #### [facility] [address] [place] [address] Ketones Ql (U) Negative Normal Negative [facility] Comment on above: Performed By: #### U ARFX #### [facility] [address] [place] [address] Leukocytes Esterase Negative Normal Negative [facility] Comment on above: Performed By: #### U ARFX #### [facility] [address] [place] [address] Nitrite Ql (U) Negative Normal Negative [facility] Comment on above: Performed By: #### U ARFX #### [facility] [address] [place] [address] pH (Bld) 5.0 Normal 5.0-9.0 [facility] Comment on above: Performed By: #### U ARFX #### [facility] [address] [place] [address] Protein mass conc (U) Negative Normal Negative [facility] Comment on above: Performed By: #### U ARFX #### [facility] [address] [place] [address] Specific gravity Relative Density (U) 1.026 Normal 1.003-1.03 5 [facility] Comment on above: Performed By: #### U ARFX #### [facility] [address] [place] [address] Urobilinogen Qn (U) <2.0 Normal Negative [facility] Comment on above: Result Comment: Due to a manufacturing issue, low positive urobilinogen results may be falsely positive. Correlate with urine bilirubin and additional clinical/laboratory findings to assess the risk of hemolytic anemia or liver disease. If clinically indicated, repeat testing with an alternate method is available by contacting the laboratory within 24 hours. Performed By: #### U ARFX #### [facility] [address] [place] [address] STREP GROUP A AG QUALon 08-29 STREP GROUP A AG QUAL STREP GROUP A AG Q UAL GROUP A STREP NEGATIVE FOR STREPTOCOCCUS GROUP A ANTIGEN THROAT CULTURE: REFERRED TO [facility] FOR CULTURE CONFIRMATION CULTURE RESULT: CULTURE NEGATIVE FOR BETA STREP GROUP A [facility] Comment on above: Performed By: #### M STREPA ####[facility] [id number] [place] [id number] ED Provider Reporton 018 ED Provider Report [facility] [place] [place], [place] [id number] Name: FARTUN RODRÍGUEZ : [birth year]Acct #: [id number] Unit #: [id number] ER Arrival Date: 09/21/17 ER Physician: Yoshi [...] illicit drug usePast Social HistorySmoking Status:FORMER SMOKERTobacco UseCIGARETTESPacks/Yzv4Zdgn :LESS THAN 1 YEAR AGOReview of SystemsReview [...] Resp B/P B/P Pulse O2 O2 Flow JyX9Ipjd Ox Delivery Rate01/25 1712 36.5 83 18 [...] to follow-up with PCP.Disposition DecisionDischargeDispositio n Date09/21/17Decision [id number] obiologyDate/Time Procedure - StatusSource Yuijln91/25 1745 Group A Streptococcus Screen (BETHANY) - [...] Cali Gregory P. DO 09/22/17 1146 [facility] Vital Signs Date Time Vital Sign Value Performing Clinician Facility 07-31-2024 14:58-0500 Body mass index (BMI) [Ratio] 27.7 kg/m2 Ana PaulaOptiMedica DO Work Phone: [facility] 07-31-2024 14:58-0500 Body weight 73.21 kg Ana Paula Bryant DO Work Phone: [facility] 07-31-2024 14:58-0500 Diastolic blood pressure 62 mm[Hg] Ana Paula Bryant DO Work Phone: [facility] 07-31-2024 14:58-0500 Systolic blood pressure 100 mm[Hg] Ana Paula Bryant DO Work Phone: [facility] 07-04-2024 15:55-0500 Body mass index (BMI) [Ratio] 27.48 kg/m2 [facility] 07-04-2024 15:55-0500 Body weight 72.63 kg [facility] Nurse [facility] 07-04-2024 15:55-0500 Diastolic blood pressure 60 mm[Hg] [facility] Nurse [facility] 07-04-2024 15:55-0500 Systolic blood pressure 110 mm[Hg] [facility] Nurse [facility] 05-31-2023 09:00-0400 Body height 162.56 cm Jada Oliveros Other [facility] Other 05-31-2023 09:00-0400 Body mass index (BMI) [Ratio] 24.54 kg/m2 Jada Oliveros Other [facility] Other 05-31-2023 09:00-0400 Body weight 64.86 kg Jada Oliveros Other [facility] Other 05-31-2023 09:00-0400 Diastolic blood pressure 65 mm[Hg] Jada Oliveros Other [facility] Other 05-31-2023 09:00-0400 Systolic blood pressure 98 mm[Hg] Jada Oliveros Other [facility] Other 11-08-2022 16:15-0400 Body height 162.56 cm Jada Oliveros Other [facility] Other 11-08-2022 16:15-0400 Body mass index (BMI) [Ratio] 25.4 kg/m2 Jada Oliveros Other [facility] Other 11-08-2022 16:15-0400 Body temperature 97.4 [degF] Jada Oliveros Other [facility] Other 11-08-2022 16:15-0400 Body weight 67.13 kg Jada Oliveros Other [facility] Other 11-08-2022 16:15-0400 Diastolic blood pressure 74 mm[Hg] Jada Oliveros Other [facility] Other 11-08-2022 16:15-0400 SaO2% (BldA) [Mass fraction] 99 % Jada Oliveros Other [facility] Other 11-08-2022 16:15-0400 Systolic blood pressure 120 mm[Hg] Jada Oliveros Other [facility] Other 06-12-2022 12:15-0400 Body height 162.56 cm Yolis James Other [facility] Other 06-12-2022 12:15-0400 Body mass index (BMI) [Ratio] 25.74 kg/m2 Yolis James Other [facility] Other 06-12-2022 12:15-0400 Body temperature 98.1 [degF] Yolis James Other [facility] Other 06-12-2022 12:15-0400 Body weight 68.04 kg Yolis James Other [facility] Other 10-16-2022 12:15-0400 Diastolic blood pressure 61 mm[Hg] Yolis James Other [facility] Other 06-12-2022 12:15-0400 Respiratory rate 18 /min Yolis James Other [facility] Other 06-12-2022 12:15-0400 SaO2% (BldA) [Mass fraction] 100 % Yolis James Other [facility] Other 06-12-2022 12:15-0400 Systolic blood pressure 108 mm[Hg] Yolis James Other [facility] Other Encounters Encounter Date Encounter Type Care Provider Facility Start: 07-31-2024 End: 07-31-2024 Patient encounter procedure Ana Paula Bryant DO Work Phone: [facility] Start: 07-31-2024 End: 07-31-2024 Periodic preventive med est patient 18-39 yrs Ana Paula Bryant DO Work Phone: [facility] Comment on above: 16 weeks gestation o f ; Second trimester ; Well woman exam with routine gynecological exam; Screening, , for anatomic survey; Exposure to STD; Vaginal discharge; Ear infection Start: 07-31-2024 End: 07-31-2024 Bamboo flowsheet Ana Paula Bryant DO Work Phone: [facility] Start: 07-31-2024 End: 07-31-2024 Bamboo flowsheet Ana Paula Bryant DO Work Phone: [facility] Start: 07-17-2024 End: 07-17-2024 Clinisync Result Encounter Ana Paula Bryant DO Work Phone: [facility] Unsolicited Start: 07-17-2024 End: 07-17-2024 Clinisync Result Encounter Ana Paula Bryant DO Work Phone: [facility] Unsolicited Start: 07-04-2024 End: 07-04-2024 ambulatory Not Available Start: 07-04-2024 End: 07-04-2024 Office outpatient visit 5 minutes [facility] Maria Del Rosario Ob Bryant Nurse [facility] Comment on above: GA: 12w4d Start: 05-31-2023 End: 05-31-2023 ambulatory Jada Oliveros Other [facility] Other Start: 05-31-2023 Office outpatient vi sit 15 minutes Jada Oliveros [facility] Start: 01-17-2023 End: 01-25-[address] ANA PAULA HURTADO . Facility:[facility] Start: 01-09-2023 End: 01-10-[address] ANA PAULA HURTADO . Facility:[facility] Start: 11-26-2022 Letter encounter Luisa Ge APRN-CERTIFIED MEDICAL ASSISTANT Work Phone: [facility] Start: 11-21-2022 End: 11-21-[address] ANA PAULA HURTADO . Facility:[facility] Start: 11-21-2022 End: 11-22-[address] ANA PAULA HURTADO . Facility:[facility] Start: 11-08-2022 End: 11-08-2022 ambulatory Jada Oliveros Other [facility] Other Start: 11-08-2022 Office outpatient vi sit 15 minutes Jada Oliveros [facility] Start: 10-11-2022 End: 10-12-[address] ANA PAULA HURTADO . Facility:[facility] Start: 09-23-2022 End: 09-24-[address] ANA PAULA HURTADO . Facility:[facility] Start: 09-04-2022 Letter encounter Luisa Ge BROADCAST OPERATIONS DIRECTOR-[employer] Work Phone: [facility] Start: 07-12-2022 End: 07-12-[address] ANA PAULA HURTADO . Facility:[facility] Start: 06-29-2022 End: 06-30-[address] ANA PAULA HURTADO . Facility:[facility] Start: 06-12-2022 End: 06-12-2022 ambulatory Yolis James Other [facility] Other Start: 06-12-2022 Office outpatient ne w 20 minutes Yolis James [facility] Start: 05-05-[address] ANA PAULA HURTADO . Facili ty:[facility] Start: 04-27-2022 End: 04-28-[address] ANA PAULA HURTADO . Facility: Start: 03-23-2022 End: 03-24-[address] ANA PAULA HURTADO . Facility:[facility] Start: 02-25-2022 End: 02-26-[address] ANA PAULA HURTADO . Facility: Start: 02-24-2022 End: 02-25-2022 ambulatory NONE LISTED REQUEST Facility: Start: 05-11-2020 ambulatory Swathi DANIEL Facility:[facility] Start: 11-07-2018 End: 11-08-2018 Emergency department patient visit NO FAMILY DOCTOR NO FAMILY DOCTOR Facility:[facility] Start: 09-21-2017 Emergency department patient visit No Family Physician Facility:[facility] Procedures Date Procedure Procedure Detail Performing Clinician Start: 07-31-2024 Urnls dip stick/tabl et rgnt non-auto w/o micrscp Ana Paula Bryant DO Work Phone: Start: 07-17-2024 ALL CBC WITH AUTO DIFF Ana Paula Bryant DO Work Phone: Start: 07-04-2024 Urnls dip stick/tabl et rgnt non-auto w/o micrscp Ana Paula Bryant DO Work Phone: Start: 07-08-2019 Microscopic observat ion [Identifier] in Cervix by Cyto stain Luisa Ge BROADCAST OPERATIONS DIRECTOR-CERTIFIED MEDICAL ASSISTANT Work Phone: Plan of Treatment Date Care Activity Detail Author Start: 2036 Shingles (RZV) Vacci ne (1 of 2) Shingles (RZV) Vaccine (1 of 2) [facility] Start: 09-04-2024 End: 09-04-2024 Patient encounter procedure 09/04/2024 2:50 PM EST Routine [facility] [address] [place] [address] [place] [address] Ana Paula Hurtado, [address] [place] [address] [facility] Start: 07-31-2024 End: 07-31-2024 Patient encounter procedure [facility] Comment on above: Arrived Start: 07-31-2024 End: 10-01-2024 Alpha fetoprotein, maternal Alpha fetoprotein, maternal Lab Routine Second trimester Well woman exam with routine gynecological exam Expected: 07/31/2024 (Approximate), Expires: 10/01/2024 [facility] Comment on above: Expected: 07/31/2024 (Approximate), Expires: 10/01/2024 Start: 07-31-2024 End: 07-31-2025 US for US OB ANATOMY SINGLE W US OB CERVICAL LENGTH Imaging Routine Screening, , for anatomic survey Expected: 07/31/2024 (Approximate), Expires: 07/31/2025 [facility] Comment on above: Expected: 07/31/2024 (Approximate), Expires: 07/31/2025 Start: 07-04-2024 End: 07-04-2025 ABO/Rh ABO/Rh Lab Routine Missed menses , unspecified gestational age Expected: 07/04/2024 (Approximate), Expires: 07/04/2025 [facility] Comment on above: Expected: 07/04/2024 (Approximate), Expires: 07/04/2025 Start: 07-04-2024 End: 07-04-2025 Blood type and Indirect antibody screen panel - Blood Type and screen Lab Routine Missed menses , unspecified gestational age Expected: 07/04/2024 (Approximate), Expires: 07/04/2025 [facility] Work Phone: Comment on above: Expected: 07/04/2024 (Approximate), Expires: 07/04/2025 Start: 07-04-2024 End: 07-04-2025 Drugs of abuse panel - Urine by Screen method Rapid drug screen, urine Lab Routine , unspecified gestational age Encounter for supervision of normal first in first trimester Expected: 07/04/2024 (Approximate), Expires: 07/04/2025 [facility] Comment on above: Expected: 07/04/2024 (Approximate), Expires: [...] shared decision making (35 through 40 years) [facility] Bacteria identified in Urine by Culture Urine culture Microbiology Routine Missed menses Ordered: 07/04/2024 [facility] Comment on above: Ordered: 07/04/2024 CBC W Auto Different ial panel - Blood CBC and differential Lab Routine Missed menses , unspecified gestational age Ordered: 07/04/2024 [facility] Comment on above: Ordered: 07/04/2024 CHLAMYDIA TRACHOMATI S (GENITO/STI) CHLAMYDIA TRACHOMATIS (GENITO/STI) Lab Routine Exposure to STD Ordered: 07/31/2024 [facility] Comment on above: Ordered: 07/31/2024 Cytology Cervical or vaginal smear or scraping study Pap Smear Pathology and Cytology Routine Well woman exam with routine gynecological exam Ordered: 07/31/2024 [facility] Comment on above: Ordered: 07/31/2024 Hemoglobin A1c/Hemoglobin.total in Blood Hemoglobin A1c Lab Routine Missed menses , unspecified gestational age Ordered: 07/04/2024 [facility] Comment on above: Ordered: 07/04/2024 Hepatitis B virus surface Ag [Presence] in Serum or Plasma by Immunoassay Hepatitis B surface antigen Lab Routine Missed menses , unspecified gestational age Ordered: 07/04/2024 [facility] Comment on above: Ordered: 07/04/2024 Hepatitis C virus Ab [Presence] in Serum or Plasma by Immunoassay Hepatitis C antibody Lab Routine Missed menses , unspecified gestational age Ordered: 07/04/2024 [facility] Comment on above: Ordered: 07/04/2024 HIV-1/HIV-2 antigen/antibody combination immunoassay HIV-1 and HIV-2 antibodies Lab Routine Missed menses , unspecified gestational age Ordered: 07/04/2024 [facility] Comment on above: Ordered: 07/04/2024 Human papilloma viru s DNA [Presence] in Unspecified specimen by Probe with amplification HPV DNA probe, amplified Microbiology Routine Well woman exam with routine gynecological exam Ordered: 07/31/2024 [facility] Comment on above: Ordered: 07/31/2024 Neisseria gonorrhoea e DNA [Presence] in Unspecified specimen by SANJU with probe detection Neisseria gonorrhea DNA probe, direct Lab Routine Exposure to STD Ordered: 07/31/2024 [facility] Comment on above: Ordered: 07/31/2024 Reagin Ab [Presence] in Serum by RPR RPR Lab Routine Missed menses , unspecified gestational age Ordered: 07/04/2024 [facility] Comment on above: Ordered: 07/04/2024 Rubella antibody, IgG Rubella an tibody, IgG Lab Routine Missed menses , unspecified gestational age Ordered: 07/04/2024 [facility] Comment on above: Ordered: 07/04/2024 SURESWAB(R) ADVANCED VAGINITIS PLUS, TMA SURESWAB(R) ADVANCED VAGINITIS PLUS, TMA Pathology and Cytology Routine Vaginal discharge Ordered: 07/31/2024 [facility] Work Phone: Comment on above: Ordered: 07/31/2024 Immunizations Immunization Date Immunization Notes Care Provider Ubaldo araujo 10-23-2013 tuberculin skin test ; purified protein derivative solution, intradermal Luisa Ge BROADCAST OPERATIONS DIRECTOR-[facility] Work Phone: [facility] 06-26-2013 tetanus toxoid, redu thalia diphtheria toxoid, and acellular pertussis vaccine, adsorbed Luisa Joo BROADCAST OPERATIONS DIRECTOR-[facility] Work Phone: [facility] 05-08-2013 human papilloma viru s vaccine, quadrivalent Luisa Joo BROADCAST OPERATIONS DIRECTOR-[facility] Work Phone: [facility] 01-10-2013 human papilloma viru s vaccine, quadrivalent Luisa Joo BROADCAST OPERATIONS DIRECTOR-[facility] Work Phone: [facility] 11-15-2012 human papilloma viru s vaccine, quadrivalent Luisa Joo BROADCAST OPERATIONS DIRECTOR-[facility] Work Phone: [facility] 10-16-2010 tetanus toxoid, redu thalia diphtheria toxoid, and acellular pertussis vaccine, adsorbed Luisa Ge BROADCAST OPERATIONS DIRECTOR-CERTIFIED MEDICAL ASSISTANT Work Phone: [facility] Payers Date Payer Category Payer [facility] BCBS [id number] 2023 [facility] HUM [id number] 2013 Medicaid [id number] 1986 Unknown [id number] 2.16.840.1.223248.3.579.2. 355 1986 Unknown [id number] 2.16.840.1.214828.3.579.2. 732 1986 Unknown [id number] 2.16.840.1.269731.3.579.2. 593 1986 Unknown [id number] 2.16.840.1.292157.3.579.2. 593 1986 Unknown [id number] 2.16.840.1.203683.3.579.2. 593 1986 Unknown [id number] 2.16.840.1.163334.3.579.2. 593 1986 Unknown [id number] 2.16.840.1.156248.3.579.2. 593 1986 Unknown [id number] 2.16.840.1.010458.3.579.2. 593 1986 Unknown [id number] 2.16.840.1.185759.3.579.2. 593 1986 Unknown [id number] 2.16.840.1.115238.3.579.2. 593 1986 Unknown [id number] 2.16.840.1.144667.3.579.2. 593 1986 Unknown [id number] 2.16.840.1.333649.3.579.2. 593 1986 Unknown [id number] 2.16.840.1.227632.3.579.2. 593 1986 Unknown [id number] 2.16.840.1.346036.3.579.2. 593 1986 Unknown [id number] 2.16.840.1.022236.3.579.2. 593 1986 Unknown [id number] 2.16.840.1.170997.3.579.2. 1259 1959 Medicaid [id number] 1958 Medicaid [id number] 2.16.840.1.091590.19 Social History Date Type Detail Facility Sex Assigned At [facility] Other Start: 10-17-2017 Tobacco smoking status UTIS Ex-smoker [facility] End: 03-28-2017 History of tobacco use Current smoker [facility] End: 03-28-2017 History of tobacco use Cigarette Smoker [facility] Start: 10-17-2017 End: 04-17-2020 Cigarettes smoked current (pack per day) - Reported 0.5 [facility] Start: 10-17-2017 Tobacco use and exposure Smokeless tobacco non-user [facility] Start: 04-17-2020 Alcohol intake Current drinker of alcohol (finding) [facility] Start: 10-17-2017 Tobacco Comment Patient quit March [address] [facility] Start: 1985 Sex Assigned At Female [facility] Tobacco smoking stat [facility] Tobacco smoking consumption unknown [facility] Start: 04-21-2024 [facility] Start: 06-03-2023 Gender identity Identifies as female gender (finding) [facility] Start: 06-03-2023 Sexual orientation Heterosexual (finding) [facility] History of Present illness Narrative 07-31-2024 Patricia Carter, JATIN - 07/31/2024 2:40 PM EST Note Date & Type Note Facility 07-31-2024 History of Presen t illness Narrative Reason for Appointment: Patient ID: Fartun Hall is a 38 y.o. female who presents for Routine Visit Patient presents today for Annual Exam., STD Check., and Return OB appointment. MEDICATIONS Current Outpatient Medications Medication Instructions cyanocobalamin (VITAMIN B-12) 100 mcg, Daily folic acid (FOLVITE) 1 mg, Daily multivitamin (Theragran) tablet 1 tablet, Daily MV-Min-Fe Fum-FA-DHA ( 1 PO) 1 each, Daily ALLERGIES No Known Allergies PROBLEMS Active Ambulatory Problems Diagnosis Date Noted No Active Ambulatory Problems Resolved Ambulatory Problems Diagnosis Date Noted No Resolved Ambulatory Problems Past Medical History: Diagnosis Date Infertility associated with anovulation HISTORY PAST MEDICAL HISTORY SOCIAL HISTORY Past Medical History: Diagnosis Date Infertility associated with anovulation Social History Tobacco Use Smoking status: Not on file Smokeless tobacco: Not on file Substance Use Topics Alcohol use: Not on file Drug use: Not on file FAMILY HISTORY No family history on file. SURGICAL HISTORY History reviewed. No pertinent surgical history. REVIEW OF SYSTEMS Review of Systems: Review of Systems Constitutional: Negative. HENT: Negative. Eyes: Negative. Respiratory: Negative. Cardiovascular: Negative. Gastrointestinal: Negative. Genitourinary: Negative. Musculoskeletal: Negative. Skin: Negative. Neurological: Negative. All other systems reviewed and are negative. Hematological: Negative. Endocrine: Negative. Allergic/Immunologic: Negative. OBJECTIVE Objective: Physical Exam Constitutional: Appearance: Normal appearance. She is well-developed. Genitourinary: Vulva normal. Cardiovascular: Rate and Rhythm: Normal rate and regular rhythm. Pulmonary: Effort: Pulmonary effort is normal. Breath sounds: Normal breath sounds. Abdominal: General: Bowel sounds are normal. There is no distension. Palpations: Abdomen is soft. Tenderness: There is no abdominal tenderness. There is no guarding or rebound. Musculoskeletal: General: No swelling. Normal range of motion. Right lower leg: No edema. Left lower leg: No edema. Neurological: Mental Status: She is alert and oriented to person, place, and time. Skin: General: Skin is warm and dry. Psychiatric: Mood and Affect: Mood normal. Behavior: Behavior normal. Vitals and nursing note reviewed. Exam conducted with a cooking show host present. Vitals: Estimated body mass index is 27.7 kg/m as calculated from the following: Height as of 11/21/22: 5' 4 . Weight as of this encounter: 161 lb 6.4 oz. BP: 100/62 No LMP recorded. Patient is . ASSESSMENT & PLAN ICD-10-CM 1. 16 weeks gestation of Z3A.16 POCT urinalysis dipstick manually resulted 2. Second trimester Z34.92 POCT urinalysis dipstick manually resulted Alpha fetoprotein, maternal Alpha fetoprotein, maternal 3. Well woman exam with routine gynecological exam Z01.419 Pap Smear HPV DNA probe, amplified Alpha fetoprotein, maternal Alpha fetoprotein, maternal 4. Screening, , for anatomic survey Z36.89 US OB ANATOMY SINGLE W US OB CERVICAL LENGTH 5. Exposure to STD Z20.2 CHLAMYDIA TRACHOMATIS (GENITO/STI) Neisseria gonorrhea DNA probe, direct 6. Vaginal discharge N89.8 SURESWAB(R) ADVANCED VAGINITIS PLUS, TMA Documented by Patricia Carter LPN on behalf of: Ana Paula Hurtado DO documented in this encounter [facility] History of Present illness Narrative 07-04-2024 Shannon Farr LPN - 07/04/2024 2:30 PM EST Note Date [...] or undercooked meat, and stay away from [facility]. Patient has also been advised to not [...] Shannon Farr LPN documented in this encounter [facility] Evaluation note 05-31-2023 Note Date & Type Note Facility 05-31-2023 Evaluation note Encounter Date Diagnosis Assessment Notes May, Dandruff in adult (ICD-10 - L21.0) Trial of medicated shampoo. Call if no improvement. [facility] Other Evaluation note 11-08-2022 Note Date & Type Note Facility 11-08-2022 Evaluation note Encounter Date Diagnosis Assessment Notes Oct, Chronic eczematous otitis externa of both ears (ICD-10 - H60.8X3) Discussed treatment. Will add drop with steroid component. Discussed proper hearing protection - possibly ear muff style. Also discussed ENT referral if needed. [facility] Other Evaluation note 06-12-2022 Note Date & [...] water inside ear after shower may use instructor hairspring on lowest cool setting to blow dry. Follow up with PCP or UC if no improvement in the next 2-3 days. Immediate eval for severe ear pain, severe headache, neck pain/stiffness, pain, erythema, or swelling behind the ear, fever, N/V, hearing loss, fever, or any other new or concerning symptoms. Patient verbalizes understanding and is agreeable to treatment plan [facility] Other Evaluation note Note Date & Type Note Facility Evaluation note Diagnosis Missed menses , unspecified gestational age Encounter for supervision of normal first in first trimester documented in this encounter [facility] Evaluation note Note Date & Type Note Facility Evaluation note Diagnosis 16 weeks gestation of Second trimester state, incidental Well woman exam with routine gynecological exam Routine gynecological examination Screening, , for anatomic survey Encounter for anatomic survey Exposure to STD Vaginal discharge Leukorrhea, not specified as infective Ear infection Unspecified otitis media documented in this encounter [facility] History [...] REPIAR 2017 Hospitalization History SEE SURGICAL HX [facility] Other Summary Purpose Family History No Family [...] section and content) DATE CREATED AUTHOR 02/19/2018 [facility] DATE CREATED AUTHOR AUTHOR'S ORGANIZ ATION 11/14/2018 [facility] DATE CREATED AUTHOR AUTHOR'S ORGANIZ ATION 09/17/2020 [facility] DATE CREATED AUTHOR AUTHOR'S ORGANIZ ATION 12/23/2020 [facility] DATE CREATED AUTHOR AUTHOR'S ORGANIZ ATION 10/21/2021 [facility] DATE CREATED AUTHOR AUTHOR'S ORGANIZ ATION 02/03/2023 [facility] DATE CREATED AUTHOR AUTHOR'S ORGANIZ ATION 07/06/2024 [facility] dical Specialists EPIC REASON FOR VISIT (unrecogniz ed section and content) Reason Comments Amenorrhea Reason Comments Routine Visit Care Teams (unrecognized sec tion and content) Melt House Drag Operator Relationship Specialty Start Date End Date Luisa Ge APRN-CERTIFIED MEDICAL ASSISTANT [address] [place] [address] LEADED GLASS INSTALLER Pulmonary Medicine 06/02/20 Jamie Hardin MD [address] [place] [address] Physician General Surgery 06/02/20 Page Faulkner M.Ed., R.D., L.D. [address] [address] Dietitian Nutrition 06/02/20 Rita Catherine MD [address] [place] [phone] Physician Obstetrics/Gynecology 06/02/20 Rishabh Hi BROADCAST OPERATIONS DIRECTOR-CERTIFIED MEDICAL ASSISTANT [address] [place] [address] LEADED GLASS INSTALLER Anesthesiology 06/02/20 [employer] Operator Relationship Specialty Start Date End Date Luisa Ge APRN-CERTIFIED MEDICAL ASSISTANT [address] [place] [address] LEADED GLASS INSTALLER Pulmonary Medicine 06/02/20 Jamie Hardin MD [address] [place] [address] Physician General Surgery 06/02/20 Page Faulkner M.Ed., R.D., L.D. [address] [address] Dietitian Nutrition 06/02/20 Rita Catherine MD [address] [place] [address] Physician Obstetrics/Gynecology 06/02/20 Rishabh Hi, BROADCAST OPERATIONS DIRECTOR-CERTIFIED MEDICAL ASSISTANT [address] [place] [address] LEADED GLASS INSTALLER Anesthesiology 06/02/20 [employer] Drag Operator Relationship Specialty Start Date End Date Jada Oliveros MD [address] [place] [address] PCP - General Family Medicine 03/29/23 M[employer] House Drag Operator Relationship Specialty Start Date End Date Jada Oliveros MD [address] [place] [phone] PCP - General Family Medicine 03/29/23 Melt House Drag Operator Relationship Specialty Start Date End Date Jada Oliveros MD [address] [place] [phone] PCP - General Family Medicine 03/29/23 FOR [...] BE BASED ON THE PRIMARY CLINICAL RECORDS. [facility]. provides no warranty or guarantee of the accuracy or completeness of information in this document.
[2024-08-07 13:13] LABS: Age Gdln ACOG Testing Note (.); HPV Aptima Negative (Negative); IGP, Aptima HPV, rfx 16/18,45 Note (.)
== END 2024-07-31 19:55 | disposition home or self-care (01) ==
LOC: LAB 19:54
PROVIDERS: PCP Family Medicine; Visit Provider Obstetrics & Gynecology
DX: Z01.419 Encounter for gynecological examination (general) (routine) without abnormal findings (principal)
CPT/HCPCS: 87624; 88175

== ENCOUNTER 2024-08-08 14:46 | Outpatient (OUT) | payer BC, SELFPAY ==
[2024-08-11 01:10] LABS: AFP Value 39.6 ng/mL (.); Gest. Age on Collection Date 17.7 weeks (.); Gestat. Age Based On Ultrasound (.); Insulin Dep Diabetes No (.); Maternal Age At EDD 38.3 yr (.); OSBR Risk 1 IN 10000 (.); Results Report (.)
== END 2024-08-08 14:47 | disposition home or self-care (01) ==
LOC: LAB 14:50
PROVIDERS: PCP Family Medicine; Visit Provider Obstetrics & Gynecology
DX: Z34.92 Encounter for supervision of normal pregnancy, unspecified, second trimester (principal)
CPT/HCPCS: 36415; 82105

== ENCOUNTER 2024-10-09 13:31 | Outpatient (OUT) | payer BC, SELFPAY ==
[2024-10-09 13:53] LABS: Basophils Absolute Auto 0.1 10^3/uL (0.0-0.1); Basophils Percent Auto 0.6 % (0.2-2.0); Eosinophils Absolute Auto 0.3 10^3/uL (0.0-0.7); Eosinophils Percent Auto 3.2 % (0.9-7.0); Hematocrit 34.1 % (36.0-48.0); Hemoglobin 10.9 g/dL (12.0-16.0); Immature Granulocytes Abs Auto 0.03 10^3/uL (0.00-0.03); Immature Granulocytes Pct Auto 0.3 % (0.0-0.5); Lymphocytes Absolute Auto 2.9 10^3/uL (1.2-3.8); Lymphocytes Percent Auto 27.6 % (20.5-60.0); Mean Corpuscular Hemoglobin 26.5 pg (26.7-34.0); Mean Corpuscular Volume 82.8 fL (81.0-99.0); Mean Platelet Volume 11.6 fL (9.5-13.5); Monocytes Absolute Auto 0.7 10^3/uL (0.3-0.8); Monocytes Percent Auto 6.3 % (1.7-12.0); Neutrophils Absolute Auto 6.5 10^3/uL (1.4-6.5); Platelet Count 348 10^3/uL (150-450); Red Blood Count 4.12 10^6/uL (4.20-5.40); Red Cell Distribution Width 13.1 % (11.0-15.0); White Blood Count 10.4 10^3/uL (4.0-11.0)
== END 2024-10-09 13:32 | disposition home or self-care (01) ==
LOC: LAB 13:31
PROVIDERS: PCP Family Medicine; Visit Provider Obstetrics & Gynecology
DX: Z13.1 Encounter for screening for diabetes mellitus (principal)
CPT/HCPCS: 36415; 85025

== ENCOUNTER 2024-11-13 10:53 | Outpatient (OUT) | payer BC, SELFPAY ==
--- OUTSIDE RECORDS SUMMARY | 2024-11-13 10:58 | XMS_ITS | CCD ---
Author Organization [facility] Care Team Providers Care Medical Records Assistant Name Role Phone No Family Physician Unavailable Unavailable No Family Physician Unavailable Unavailable NO FAMILY DOCTOR, NO FAMILY DOCTOR Primary Care Unavailable YANIRA MARTINO Attending Unavailable Swathi DANIEL Referring Unavailab le PROVIDER, UNKNOWN Attending Unavailable PROVIDER, UNKNOWN Admitting Unavailable WILSON CASTRO Primary Care Unavailable Yolis James Unavailable Joo PACKER, Luisa Unavailable [phone] Lashawn MESSER, Jamie Unavailable [phone] Kaushik West, R.Keyana., L.D., Page Unavailable Florin MESSER, Rita Unavailable Sussy PACKER, Rishabh NAlexia Unavailable Everett Oliveros Unavailable Joo PACKER, Luisa Unavailable [phone] Lashawn MESSER, Jamie Unavailable Kaushik West, R.Keyana., L.D., Page Unavailable Florin MESSER, Rita Unavailable Sussy PACKER, Rishabh N. Unavailable BRYANT ., DR GOSS Attending Unavailable BRYANT ., DR GOSS Admitting Unavailable ARLIN, DR EVERETT Corey Primary Care Unavailable BRYANT ., DR GOSS Consulting Unavailable REQUEST, DR GARAY LISTED Primary Care Unavaila ble BRYANT ., DR GOSS Attending Unavailable DIX, DR YANIRA Steele Consulting Unavailable BRYANT ., [...] Unavailable MISC, DR MCDANIEL Primary Care Unavailable ZIER, DR YADIRA Carrera Consulting Unavailable BRYANT ., DR GOSS Attending Unavailable BRYANT ., DR GOSS Admitting Unavailable OLIVEROS, DR EVERETT Corey Primary Care Unavailable BRYANT ., DR GOSS Consulting Unavailable BRYANT ., DR GOSS Consulting Unavailable BRYANT ., DR GOSS Attending Unavailable BRYANT ., DR GOSS Admitting Unavailable OLIVEROS, DR EVERETT Corey Primary Care Unavailable BRYANT ., DR GOSS Consulting Unavailable BRYANT ., DR GOSS Attending Unavailable BRYANT ., DR GOSS Admitting Unavailable OLIVEROS, DR EVERETT Corey Primary Care Unavailable BRYANT ., DR GOSS Consulting Unavailable BRYANT ., DR GOSS Attending Unavailable BRYANT ., DR GOSS Admitting Unavailable OLIVEROS, DR EVERETT Corey Primary Care Unavailable BRYANT ., DR GOSS Attending Unavailable BRYANT ., DR GOSS Admitting Unavailable OLIVEROS, DR EVERETT Corey Primary Care Unavailable BRYANT ., DR GOSS Consulting Unavailable Arlin MESSER, Everett [place] [facility] Provider Unavailable Primary Care Provider Unavailabl e BRYANT, FERMÍN R Referring Unavailable PHUC ERMELINDA Attending Unavailable BRYANT, FERMÍN R Referring Unavailable BRYANT, FERMÍN R Referring Unavailable BRYANT, FERMÍN Attending Unavailable BRYANT, FERMÍN Attending Unavailable FERMÍN HURTADO Attending Unavailable FERMÍN HURTADO Attending Unavailable Allergies Allergy Classification Reported Allergen(s) Allergy Type Date of Onset Reaction(s) Facility (3 sources) SEASONAL IC; Translations: [SEASONAL IC] Propensity to adverse reactions to drug (disorder) 9 [employer] [facility] Medications Current Medications Medication Drug Class(es) Dates Sig (Normalized) Sig (Original) amoxicillin 500 mg oral capsule (6 sources) Penicillin-class Antibacterial Start: 07-31-2024 End: 09-06-2024 take 1 capsule by mouth in the [...] 7 days. 21 capsule 07/31/2024 08/07/2024 Active ascorbic acid 75 mg / ferrous fumarate 333 mg / folic acid 0.5 mg / liver stomach concentrate 240 mg / vitamin b12 0.015 mg oral capsule (3 sources) Vitamin B12, Vitamin C take 1 capsule by mouth once daily before breakfast ferrous [id number] c C-folic acid (FOLTRIN) 110-0.5 mg capsule Take 1 capsule by mouth every morning before breakfast. Active aspirin 81 mg delayed release oral tablet (9 sources) Platelet Aggregation Inhibitor, Nonsteroidal Anti-inflammatory Drug Start: 09-06-2024 take 1 tablet by mouth in the morning aspirin 81 mg Indications: 21 weeks gestation of , History of bariatric surgery , resulting from assisted reproductive technology, second trimester , Advanced maternal age, 1st , second trimester Take 1 tablet (81 mg total) by mouth in the morning. 30 tablet 6 09/06/2024 Active cholecalciferol 0.05 mg oral tablet (2 sources) Vitamin D Start: 10-29-2018 take 1 tablet by mouth once daily Cholecalciferol (VITAMIN D3) 2000 units TABS Take 1 Tablet by mouth daily. 30 Tablet 11 10/29/2018 Active condoms (2 sources) Start: 06-18-2019 condoms use during sex to prevent and/or sexually transmitted diseases 1 Package 11 06/18/2019 Active Continuous Glucose Track Template Maker (Dexcom G6 concrete pourer) device (4 sources) Start: 10-09-2024 Continuous Glucose Track Template Maker (Dexcom G6 concrete pourer) device Indications: Diabetes mellitus screening , History of bariatric surgery Use as instructed 1 each 10/09/2024 Active Continuous Glucose Track Template Maker (FreeStyle Emmy 3 [place]) device (3 sources) Start: 10-03-2024 End: 10-17-2024 Continuous Glucose Track Template Maker (FreeStyle Emmy 3 [place]) device Indications: Diabetes mellitus screening , History of bariatric surgery , resulting from in vitro fertilization, antepartum 1 Device Daily for 14 days 1 each 10/03/2024 10/17/2024 Active Continuous Glucose Sensor (Dexcom G6 Sensor) misc (4 sources) Start: 10-09-2024 End: 11-08-2024 Continuous Glucose Sensor (Dexcom G6 Sensor) misc Indications: Diabetes mellitus screening , History of bariatric surgery 1 each Every 10 (ten) days 3 each 10/09/2024 11/08/2024 Active Continuous Glucose Sensor (FreeStyle Emmy 3 Plus Sensor) misc (3 sources) Start: 10-03-2024 End: 10-17-2024 Continuous Glucose Sensor (FreeStyle Emmy 3 Plus Sensor) misc Indications: Diabetes mellitus screening , History of bariatric surgery , resulting from in vitro fertilization, antepartum 1 each every 14 (fourteen) days for 14 days 1 each 1 10/03/2024 10/17/2024 Active Continuous Glucose Transmitter (Dexcom G6 transmitter) misc (3 sources) Start: 10-11-2024 Continuous Glucose Transmitter (Dexcom G6 transmitter) misc Indications: Diabetes mellitus screening , History of bariatric surgery Use as instructed 1 each 10/11/2024 Active docosanol 100 mg/ml topical cream (2 [...] Active folic acid 1 mg oral tablet (18 sources) take 1 tablet by mouth once daily folic acid (Folvite) 1 MG tablet Take 1 mg by mouth Daily Active humidifier (2 sources) Start: 09-21-2018 humidifier Dispense humidifier covered by insurance to use as directed 1 Each 0 09/21/2018 Active hydrocortisone 10 mg/ml / neomycin 3.5 mg/ml / polymyxin b [id number] unt/ml otic solution (1 source) Aminoglycoside Antibacterial, [...] a meal Orally Once a day Active metroNIDAZOLE 500 mg oral tablet (3 sources) Nitroimidazole Antimicrobial Start: 08-06-2024 End: 09-06-2024 take 1 tablet by mouth in the morning metroNIDAZOLE (Flagyl) 500 MG tablet Indications: BV (bacterial vaginosis) Take 1 tablet (500 mg) by mouth in the morning and 1 tablet (500 mg) before bedtime. Do all this for 7 days. Do not drink alcohol while taking this medication. 14 tablet 08/06/2024 08/13/2024 Active multivitamin (Theragran) tablet (18 sources) take 1 tablet by mouth once [...] day for 7 day(s) May, Not-Taking omeprazole 20 mg delayed release oral capsule (12 sources) Proton Pump Inhibitor Start: 10-28-2024 take 1 capsule by mouth in the morning omeprazole (PriLOSEC) 20 mg capsule Indications: History of bariatric surgery TAKE 1 CAPSULE BY MOUTH IN THE MORNING 90 capsule 3 10/28/2024 Active Start: 09-06-2024 [facility] omeprazole (PriLOSEC) [address] capsule Take 20 mg by mouth Daily 09/06/2024 Active Start: 09-06-2024 End: 10-28-2024 take 1 tablet by mouth in the morning omeprazole (PriLOSEC OTC) 20 mg EC tablet Indications: History of bariatric surgery Take 1 tablet (20 mg total) by mouth in the morning. 30 tablet 6 09/06/2024 10/28/2024 Discontinued Start: 05-30-2019 [facility] 1 capsule [facility] daily omeprazole (PRILOSEC) 40 MG capsule [...] 05/30/2019 Active MV-Min-Fe Fum-FA-DHA ( 1 PO) (18 sources) MV-Min- Fe Fum-FA-DHA ( 1 PO) Take 1 each by mouth Daily Active [id number] acid ( 19) 29 mg iron- 1 mg tablet,chewable (3 sources) [id number] acid ( 19) 29 mg iron- 1 mg tablet,chewable Chew 1 tablet and swallow in the morning. Active triamcinolone acetonide 1 mg/ml topical cream [...] Active vitamin b12 0.1 mg oral tablet (20 sources) Vitamin B12 Start: 10-29-2018 take 1 tablet by mouth once daily Cyanocobalamin (B-12) 100 MCG TABS Take 100 mcg by mouth daily. 30 Tablet 11 10/29/2018 Active Vitamin B12 Acti ve Completed/Discontinued Medications Medication Drug Class(es) Dates Sig (Normalized) Sig (Original) desogestrel 0.15 mg / ethinyl estradiol 0.03 mg oral tablet (3 sources) Progestin, Estrogen Start: 11-03-2023 End: 07-04-2024 take 1 tablet by mouth once daily Isibloom 0.15-30 MG-MCG tablet TAKE ONE TABLET BY MOUTH ONCE DAILY -ACTIVE TABLETS ONLY 11/03/2023 07/04/2024 Discontinued End: 09-06-2024 take 1 tablet by mouth in the morning, then take 0.15 tablet by mouth once desogestreL-ethinyl estradioL (APRI) 0.15-0.03 mg per tablet Take 1 tablet by mouth in the morning. 09/06/2024 Discontinued take 1 tablet by esperanza th in the morning, then take 0.15 tablet by mouth once desogestreL-ethinyl estradioL (APRI) 0.15-0.03 mg per tablet Take 1 tablet by mouth in the morning. Active fluticasone propionate 0.05 mg/actuat metered dose nasal spray (13 sources) Corticosteroid Start: 07-31-2024 End: 07-31-2025 take 1 spray(s) nasal route once daily fluticasone (Flonase Allergy Relief) 50 MCG/ACT nasal spray Indications: Ear infection Administer 1 spray into each nostril Daily Shake gently. Before first use, prime pump. After use, clean tip and replace cap. 16 g 12 07/31/2024 10/03/2024 Discontinued End: 09-06-2024 take 1 spray(s) nasal route in the morning fluticasone propionate (FLONASE) 50 mcg/actuation nasal spray Administer 1 spray into each nostril in the morning. 09/06/2024 Discontinued Problems Active Problems Problem Classification Problem [...] sources) Headache; Translations: [Headache] Onset: 11-07-2018 Episodic Hemorrhage during ; abruptio placenta; placenta previa (6 sources) Low lying placenta; Translations: [Low lying placenta NOS or without hemorrhage, second trimester] Onset: 09-06-2024 09-06-2024 Episodic Immunizations and screening for infectious disease [...] deficiency, unspecified] Onset: 10-29-2018 10-29-2018 Chronic Other complications of (4 sources) Supervision of resulting from assisted reproductive technology, second trimester; Translations: [ resulting from assisted reproductive technology] Onset: 09-06-2024 09-06-2024 Episodic Other complications of (1 source) Elderly primigravida; Translations: [Supervision of elderly primigravida, second trimester] 09-06-2024 Episodic Other complications of (3 sources) Multigravida of advanced maternal age; Translations: [Supervision of elderly multigravida, second trimester] 09-09-2024 Episodic Other complications of (1 source) Supervision of elderly primigravida, second trimester; Translations: [Supervision of elderly primigravida, second trimester] Onset: 09-06-2024 Episodic Other complications of (2 sources) Supervision of elderly multigravida, second trimester; Translations: [Supervision of elderly multigravida, second trimester] Onset: 09-06-2024 Episodic Other complications of (2 sources) Decreased fertility; Translations: [Supervision of resulting from assisted reproductive technology, unspecified trimester] 10-03-2024 Episodic Other ear and sense organ disorders (2 [...] stomach; Translations: [Bariatric surgery status] Episodic Other gastrointestinal disorders (4 sources) History of bariatric surgical procedure; Translations: [Bariatric surgery status] 09-06-2024 Episodic Other gastrointestinal disorders (1 source) Bariatric surgery status; Translations: [Bariatric surgery status] Onset: 09-06-2024 Episodic Other inflammatory condition of skin (2 [...] adiposity] Chronic Other and delivery including normal (14 sources) Encounter for test, result positive; Translations: [] Onset: 01-17-2023 Episodic Other screening for suspected conditions (not mental disorders or infectious disease) (9 sources) Encounter for screening for malignant neoplasm [...] [16 weeks gestation of ] 07-31-2024 Episodic Residual codes; unclassified (3 sources) Gestation period, 21 weeks; Translations: [21 weeks gestation of ] 09-04-2024 Episodic Residual codes; unclassified (1 source) 21 weeks gestation of ; Translations: [21 weeks gestation of ] Onset: 09-06-2024 Episodic Residual codes; unclassified (2 sources) Gestation period, 25 weeks; Translations: [25 weeks gestation of ] 10-03-2024 Episodic Residual codes; unclassified (2 sources) Gestation period, 29 weeks; Translations: [29 weeks gestation of ] 10-29-2024 Episodic Unclassified (1 source) Unknown / UNK(Unknown) Onset: 09-21-2017 Unclassified (3 sources) Diarrhea, unspecified; Translations: [Diarrhea, unspecified] Onset: 11-07-2018 Unclassified (11 sources) OB Reminders Onset: 08-08-2024 08-08-2024 Unclassified (1 source) ama Onset: 09-06-2024 Unclassified (1 source) Fertility Preservation Onset: 09-06-2024 Past or Other Problems Problem Classification Problem [...] and subcutaneous tissue] Onset: 04-17-2020 04-17-2020 Episodic Unclassified (2 sources) resulting from assisted reproductive technology, second trimester 09-09-2024 Results Test Name Value Interpretation Reference Range Facility Urinalysis macro (dipstick) panel (U)on 10-29-2024 Bilirubin, UA Negative Negative - 4(70) +++ mg/dL [facility] Blood, UA Negative Negative - 50 Nanmdi/mcL [facility] Clarity, UA Clear [facility] Color, UA Yellow [facility] Glucose, UA Negative Negative - 2000(110) ++++ mg/dL [facility] Interpretation and review of laboratory results Abnormal [facility] Ketones, UA Negative Negative - 160(16) ++++ mg/dL [facility] Leukocytes, UA Negative Negative - 500+++ Dilcia/mcL [facility] Nitrite, UA Negative Negative - Positive [facility] pH, UA 7 5 - 9 [facility] Protein, UA Trace Negative - 2000(20) ++++ mg/dL [facility] Spec Grav, UA 1.025 1 - 1.03 [facility] Urobilinogen, UA 4.0 0.2 - 12 mg/dL [facility] ALL CBC WITH AUTO DIFFon BASOPHILS ABSOLUTE AUTO 0.1 [facility] Basophils/100 WBC (Bld) 0.6 % 0.2 - 2.0 % [facility] Eosinophils/100 WBC (Bld) 3.2 % 0.9 - 7.0 % [facility] Erythrocyte distribution width (RBC) [Ratio] 13.1 % 11.0 - 15.0 % [facility] Hematocrit (Bld) [Volume fraction] 34.1 % Low 36.0 - 48.0 % [facility] Hemoglobin (Bld) [Mass/Vol] 10.9 g/dL Low 12.0 - 16.0 g/dL [facility] IMMATURE GRANULOCYTES ABS AUTO 0.03 [facility] Immature granulocytes/100 WBC (Bld) 0.3 % 0.0 - 0.5 % [facility] Interpretation and review of laboratory results Abnormal [facility] LYMPHOCYTES ABSOLUTE AUTO 2.9 [facility] Lymphocytes/100 WBC (Bld) 27.6 % 20.5 - 60.0 % [facility] MCH (RBC) [Entitic mass] 26.5 pg Low 26.7 - 34.0 pg [facility] MCHC (RBC) [Mass/Vol] 32 g/dL 29.9 - 35.2 g/dL [facility] MCV (RBC) [Entitic vol] 82.8 fL 81.0 - 99.0 fL [facility] MONOCYTES ABSOLUTE AUTO 0.7 [facility] Monocytes/100 WBC (Bld) 6.3 % 1.7 - 12.0 % [facility] NEUTROPHILS ABSOLUTE AUTO 6.5 [facility] Neutrophils/100 WBC (Bld) 62 % 43.0 - 75.0 % [facility] Platelet mean volume (Bld) [Entitic vol] 11.6 fL 9.5 - 13.5 fL [facility] TBH EO # 0.3 [facility] PLT 348 [facility] RBC 4.12 Low [facility] WBC 10.4 [facility] Urinalysis macro (dipstick) panel (U)on 10-03-2024 Bilirubin, UA Negative Negative - 4(70) +++ mg/dL [facility] Blood, UA Negative Negative - 50 Nnamdi/mcL [facility] Clarity, UA Clear [facility] Color, UA Yellow [facility] Glucose, UA Negative Negative - 1999(110) ++++ mg/dL [facility] Interpretation and review of laboratory results Abnormal [facility] Ketones, UA Negative Negative - 160(16) ++++ mg/dL [facility] Leukocytes, UA Negative Negative - 500+++ Dilcia/mcL [facility] Nitrite, UA Negative Negative - Positive [facility] pH, UA 6.5 5 - 9 [facility] Protein, UA Trace Negative - 1999(20) ++++ mg/dL [facility] Spec Grav, UA 1.025 1 - 1.03 [facility] Urobilinogen, UA 1.0 0.2 - 12 mg/dL [facility] Urinalysis macro (dipstick) panel (U)on 09-04-2024 Bilirubin, UA Negative Negative - 4(70) +++ mg/dL [facility] Blood, UA Negative Negative - 50 Nnamdi/mcL [facility] Clarity, UA Clear [facility] Color, UA Yellow [facility] Glucose, UA Negative Negative - 1999(110) ++++ mg/dL [facility] Interpretation and review of laboratory results Normal [facility] Ketones, UA Negative Negative - 160(16) ++++ mg/dL [facility] Leukocytes, UA Negative Negative - 500+++ Dilcia/mcL [facility] Nitrite, UA Negative Negative - Positive [facility] pH, UA 5.5 5 - 9 [facility] Protein, UA Negative Negative - 1999(20) ++++ mg/dL [facility] Spec Grav, UA 1.02 1 - 1.03 [facility] Urobilinogen, UA 1.0 0.2 - 12 mg/dL [facility] AFP, SERUM, OPEN SPINA BIFID Aon 08-11-2024 AFP MOM 1.01 . [facility] AFP VALUE 39.6 ng/mL . [facility] COMMENT: Comment . [facility] Comment on above: Hazel Dixon , Ph.D., [facility] Director References: Available Upon Request. Multiples Of Median Cutoffs For AFP Elevations Krishna 2.5 Black 2.8 IDD 2.0 Twins 4.5 Abbreviation Definitions IDD - Insulin Dep Diabetes OSBR - Open Spina Bifida Risk For further inquiries contact [facility] at [phone]. This test was developed and its performance characteristics determined by [employer]. It has not been cleared or approved by the Food and Drug Administration. Performed at: [facility] [address], [place] [id number] [place] Supervisor: Mc Doshi [facility], Phone: [phone] GEST. AGE ON COLLECTION DATE 17.7 . weeks [facility] GESTAT. AGE BASED ON Ultrasound . [facility] Comment on above: 16.6 on 07/31/2024 Recalculations are not recommended when gestational dating by LMP and ultrasound are within 10 days. INSULIN DEP DIABETES No . [facility] INTERPRETATION Comment . [facility] Comment on above: Interpretation: Scre en Negative This result is screen negative for OSB. The AFP MoM calculated is based on the gestational age provided. MS-AFP can identify up to 80% of open neural tube defects. Closed neural tube defects and some open defects may not be detected by this test. This test does not screen for Down Syndrome or Trisomy 18. If screening for Down Syndrome or Trisomy 18 is desired, contact [facility] to discuss available options. The [employer] recommends amniocentesis be offered to women age 35 and older. [age] [facility] MULTIPLE GESTATION No . [facility] [place] [id number] . [facility] RACE . [facility] RESULTS Report . [facility] TEST RESULTS: Negative . [facility] WEIGHT 161 . lbs [facility] N N ULTRASOUND [id number] 4 16 N 1 Y 161 N N N N N White/ [facility] IGP,APTIMA HPV,AGE GDLNon AGE GDLN ACOG TESTING Note . [facility] Comment on above: TESTS RESULT FLAG UN ITS REF RANGE LAB Clinician Provided Cytology Information Source.............Cervix Other.............. No. of containers..01 ThinPrep Vial Age Algo ACOG Aniya... FLAG LEGEND: L-Low Normal,H-High Normal,LL-Alert Low,HH-Alert High <-Panic Low,>-Panic High,A-Abnormal,AA-Critical Abnormal Performed at: 01 =[address] [place] [address] Dipti Hurtado MD, HPV APTIMA Negative Negative [facility] Comment on above: This nucleic acid am plification test detects fourteen high- risk HPV types (16,18,31,33,35,39,45,51,52,56,58,59,66,68) without differentiation. Performed at: =[address] [id number] [place] Supervisor: Dipti Hurtado MD, Phone: [phone] Performed at: [address] [id number] [place] Supervisor: Dipti Hurtado MD, Phone: [phone] IGP, APTIMA HPV, RFX 16/18,45 Note . [facility] Comment on above: TESTS RESULT FLAG UN ITS REF RANGE LAB DIAGNOSIS: 02 NEGATIVE FOR INTRAEPITHELIAL LESION OR MALIGNANCY. Specimen adequacy: 02 Satisfactory for evaluation. Endocervical and/or squamous metaplastic cells (endocervical component) are present. Performed by: 02 Adria Kincaid, [employer] Press Plate Setter (ASCP) . 02 Note: Note 02 The Pap smear is a screening test designed to aid in the detection of premalignant and malignant conditions of the uterine cervix. It is not a diagnostic procedure and should not be used as the sole means of detecting cervical cancer. Both false-positive and false-negative reports do occur. Test Methodology: Note 02 This liquid based ThinPrep(R) pap test was screened with the use of an image guided system. HPV Genotype Reflex Note 02 Criteria not met, HPV Genotype not performed. FLAG LEGEND: L-Low Normal,H-High Normal,LL-Alert Low,HH-Alert High <-Panic Low,>-Panic High,A-Abnormal,AA-Critical Abnormal Performed at: [address] [facility] [address] [address] Dipti Hurtado MD, SPATULA-ALONE CERVIX [facility] RECURRENT VAGINITIS (HTRX)on 08-03-2024 ATOPOBIUM VAGINAE 0 [facility] ATOPOBIUM VAGINAE Not detected [facility] BVAB 2,3 (BACTERIAL VAGINOSIS ASSOCIATED BACTERIA 2, 3); MOBILUNCUS SPP 27.074 Abnormal [facility] BVAB 2,3 (BACTERIAL VAGINOSIS ASSOCIATED BACTERIA 2, 3); MOBILUNCUS SPP Detected Abnormal [facility] LULY ALBICANS, PARAPSILOSIS, TROPICALIS 0 [facility] LULY ALBICANS, PARAPSILOSIS, TROPICALIS Not detected [facility] LULY GLABRATA 0 [facility] LULY GLABRATA Not detected [facility] LULY KRUSEI 0 [facility] LULY KRUSEI Not detected [facility] CHLAMYDIA TRACHOMATIS 0 [facility] CHLAMYDIA TRACHOMATIS Not detected [facility] GARDNERELLA VAGINALIS 30.955 Abnormal [facility] GARDNERELLA VAGINALIS Detected Abnormal [facility] Interpretation and review of laboratory results Abnormal [facility] MEGASPHAERA (TYPES 1, 2) 0 [facility] MEGASPHAERA (TYPES 1, 2) Not detected [facility] MYCOPLASMA GENITALIUM 0 [facility] MYCOPLASMA GENITALIUM Not detected [facility] NEISSERIA GONORRHOEAE 0 [facility] NEISSERIA GONORRHOEAE Not detected [facility] TET B, TET M 16.937 Abnormal [facility] TET B, TET M Detected Abnormal [facility] TRICHOMONAS VAGINALIS 0 [facility] TRICHOMONAS VAGINALIS Not detected [facility] Urinalysis macro (dipstick) panel (U)on 07-31-2024 Bilirubin, UA Negative Negative - 4(70) +++ mg/dL [facility] Blood, UA Negative Negative - 50 Nnamdi/mcL [facility] Clarity, UA Clear [facility] Color, UA Yellow [facility] Glucose, UA Negative Negative - 1999(110) ++++ mg/dL [facility] Interpretation and review of laboratory results Normal [facility] Ketones, UA Negative Negative - 160(16) ++++ mg/dL [facility] Leukocytes, UA Negative Negative - 500+++ Dilcia/mcL [facility] Nitrite, UA Negative Negative - Positive [facility] pH, UA 6 5 - 9 [facility] Protein, UA Negative Negative - 1999(20) ++++ mg/dL [facility] Spec Grav, UA 1.015 1 - 1.03 [facility] Urobilinogen, UA 1.0 0.2 - 12 mg/dL [facility] ALL CBC WITH AUTO DIFFon BASOPHILS ABSOLUTE AUTO 0.1 [facility] Basophils/100 WBC (Bld) 0.6 % 0.2 - 2.0 % [facility] Eosinophils/100 WBC (Bld) 3.7 % 0.9 - 7.0 % [facility] Erythrocyte distribution width (RBC) [Ratio] 13.1 % 11.0 - 15.0 % [facility] Hematocrit (Bld) [Volume fraction] 36.3 % 36.0 - 48.0 % [facility] Hemoglobin (Bld) [Mass/Vol] 11.7 g/dL Low 12.0 - 16.0 g/dL [facility] IMMATURE GRANULOCYTES ABS AUTO 0.03 [facility] Immature granulocytes/100 WBC (Bld) 0.3 % 0.0 - 0.5 % [facility] Interpretation and review of laboratory results Abnormal [facility] LYMPHOCYTES ABSOLUTE AUTO 3.1 [facility] Lymphocytes/100 WBC (Bld) 31.7 % 20.5 - 60.0 % [facility] MCH (RBC) [Entitic mass] 27.7 pg 26.7 - 34.0 pg [facility] MCHC (RBC) [Mass/Vol] 32.2 g/dL 29.9 - 35.2 g/dL [facility] MCV (RBC) [Entitic vol] 85.8 fL 81.0 - 99.0 fL [facility] MONOCYTES ABSOLUTE AUTO 0.6 [facility] Monocytes/100 WBC (Bld) 6.3 % 1.7 - 12.0 % [facility] NEUTROPHILS ABSOLUTE AUTO 5.6 [facility] Neutrophils/100 WBC (Bld) 57.4 % 43.0 - 75.0 % [facility] Platelet mean volume (Bld) [Entitic vol] 11.9 fL 9.5 - 13.5 fL [facility] # 0.4 [facility] PLT 306 [facility] RBC 4.23 [facility] WBC 9.8 [facility] HCG ( test) Ql (U)o n 07-04-2024 Interpretation and review of laboratory results Abnormal [facility] Preg Test, Ur Positive Negative [facility] Urinalysis macro (dipstick) panel (U)on 07-04-2024 Bilirubin, UA Negative Negative - 4(70) +++ mg/dL [facility] Blood, UA Positive Negative - 50 Nnamdi/mcL [facility] Comment on above: trace-intact Clarity, UA Clear [facility] Color, UA Yellow [facility] Glucose, UA Negative Negative - 1999(110) ++++ mg/dL [facility] Interpretation and review of laboratory results Abnormal [facility] Ketones, UA Negative Negative - 160(16) ++++ mg/dL [facility] Leukocytes, UA Negative Negative - 500+++ Dilcia/mcL [facility] Nitrite, UA Negative Negative - Positive [facility] pH, UA 6 5 - 9 [facility] Protein, UA Negative Negative - 1999(20) ++++ mg/dL [facility] Spec Grav, UA 1.03 1 - 1.03 [facility] Urobilinogen, UA 0.2 0.2 - 12 mg/dL [facility] PREG QUANT HCGon 01-17-2023 HCG QUANT <1 Normal [facility] Comment on above: Performed By: #### P REGQNT #### [facility] [address] [address] [address] Meghan Vital HCG RANGE SEE BELOW Normal [facility] Comment on above: Result Comment: 5-50 0.2-1 WEEK 50-500 1-2 WEEKS 100-5,000 2-3 WEEKS 500-10,000 3-4 WEEKS 1,000-50,000 4-5 WEEKS 10,000-100,000 5-6 WEEKS 15,000-200,000 6-8 WEEKS 10,000-100,000 2-3 MONTHS Performed By: #### P REGQNT #### [facility] [address] [place] [address] Dr. Meghan Vital PROGESTERONEon 01-10-2023 Progesterone 8.9 ng/mL Normal [facility] Comment on above: Result Comment: Foll icular phase 0.1 - 0.9 Luteal phase 1.8 - 23.9 Ovulation phase 0.1 - 12.0 First trimester 11.0 - 44.3 Second trimester 25.4 - 83.3 Third trimester 58.7 - 214.0 Postmenopausal 0.0 - 0.1 Performed By: #### H CGSUB #### [facility] [address] [place] [address] Dr. Meghan Vital PAP ACOG PANEL 2: 30 to 65on 11-30-2022 . . Normal [facility] Comment on above: Result Comment: Perf ormed at: WB Performed By: #### [id number] #### [facility] [address] [place] [address] Dr. Meghan Vital Age Gdln ACOG Testing 30-65 [facility] Comment on above: Performed By: #### [id number] #### [facility] [address] [place] [address] Dr. Meghan Vital DIAGNOSIS: Comment Normal [facility] Comment on above: Result Comment: NEGA TIVE FOR INTRAEPITHELIAL LESION OR MALIGNANCY. Performed at: WB Performed By: #### [id number] #### [facility] [address] [place] [address] Dr. Meghan Vital HPV Aptima Positive Abnormal Negative [facility] Comment on above: Result Comment: This nucleic acid amplification test detects fourteen high-risk HPV types (16,18,31,33,35,39,45,51,52,56,58,59,66,68) without differentiation. Performed at: =G Performed By: #### [id number] #### [facility] [address] [place] [address] Dr. Meghan Vital HPV Genotype 16 Negative Normal Negative [facility] Comment on above: Performed By: #### [id number] #### [facility] [address] [place] [address] Dr. Meghan Vital HPV Genotype 18,45 Negative Normal Negative [facility] Comment on above: Performed By: #### [id number] #### [facility] [address] [place] [address] Dr. Meghan Vital HPV Genotype Reflex Comment Normal [facility] Comment on above: Result Comment: Aiyana iqbal, see HPV Genotype results. Performed at: WB Performed By: #### [id number] #### [facility] [address] [place] [address] Dr. Meghan Vital Methodology: Comment Normal [facility] Comment on above: Result Comment: This liquid based ThinPrep(R) pap test was screened with the use of an image guided system. Performed at: WB Performed By: #### [id number] #### [facility] [address] [place] [address] Dr. Meghan Vital Note: Comment Normal [facility] Comment on above: Result Comment: The Pap smear is a screening test designed to aid in the detection of premalignant and malignant conditions of the uterine cervix. It is not a diagnostic procedure and should not be used as the sole means of detecting cervical cancer. Both false-positive and false-negative reports do occur. . Performed at: WB Performed By: [id number] #### [facility] [address] [place] [address] Dr. Meghan Vital Performed by: Comment Normal [facility] Comment on above: Result Comment: Rahul Kincaid, Flexographic Press Plate Setter (ASCP) Performed at: WB Performed By: #### [id number] #### [facility] [address] [place] [address] Dr. Meghan Vital Specimen adequacy: Comment Normal [facility] Comment on above: Result Comment: Sati sfactory for evaluation. Endocervical and/or squamous metaplastic cells (endocervical component) are present. Performed at: WB Performed By: #### [id number] #### [facility] [address] [place] [address] Dr. Meghan Vital ANTI-MULLERIAN HORMONEon Anti-Mullerian Hormone (AMH) 3.03 ng/mL Normal [facility] Comment on above: Result Comment: For assays employing antibodies, the possibility exists for interference by heterophile antibodies in the samples.1 1.Bailey Dickson Interferences in Immunoassays - still a threat. Clin. Chem. 2000; 46: 8443-8580. This test was developed and its performance characteristics determined by [employer]. It has not been cleared or approved by the Food and Drug Administration. Reference Range: Females 36 - 40y: 0.42 - 8.34 Median 1.69 AMH concentrations of >= 1.06 ng/mL is correlated with a better response to ovarian stimulation, produced more retrievable oocytes and higher odds of live according to Holland et al. Fertility and Sterility. 2010: 94:9193-6731. The current AMH test method correlates with [...] By: #### H CGSUB #### [facility] [address] [place] [address] Dr. Meghan Vital CBC AUTO DIFFon 11-21-2022 BASO # 0.1 103/ul Normal 0.0-0.1 [facility] Comment on above: Performed By: #### H CGSUB #### [facility] [address] [place] [address] Dr. Meghan Vital Basophils/100 WBC (Bld) 0.8 % Normal 0.2-2.0 [facility] Comment on above: Performed By: #### H CGSUB #### [facility] [address] [place] [address] Dr. Meghan Vital EO # 0.2 103/ul Normal 0.0-0.7 [facility] Comment on above: Performed By: #### H CGSUB #### [facility] [address] [place] [address] Dr. Meghan Vital Eosinophils/100 WBC (Bld) 2.3 % Normal 0.9-7.0 [facility] Comment on above: Performed By: #### H CGSUB #### [facility] [address] [place] [address] Dr. Meghan Vital Erythrocyte distribution width (RBC) [Ratio] 13.3 % Normal 11.0-15.0 [facility] Comment on above: Performed By: #### H CGSUB #### [facility] [address] [place] [address] Dr. Meghan Vital Hematocrit (Bld) [Volume fraction] 42.4 % Normal 36.0-48.0 [facility] Comment on above: Performed By: #### H CGSUB #### [facility] [address] [place] [address] Dr. Meghan Vital Hemoglobin (Bld) [Mass/Vol] 13.6 g/dL Normal 12.0-16.0 [facility] Comment on above: Performed By: #### H CGSUB #### [facility] [address] [place] [address] Dr. Meghan Vital IG # 0.01 10e3/ul Normal 0.00-0.03 [facility] Comment on above: Performed By: #### H CGSUB #### [facility] [address] [place] [address] Dr. Meghan Vital IG % 0.1 % Normal 0.0-0.5 [facility] Comment on above: Performed By: #### H CGSUB #### [facility] [address] [place] [address] Dr. Meghan Vital LYMPH # 3.9 103/ul Critically high 1.2-3.8 [facility] Comment on above: Performed By: #### H CGSUB #### [facility] [address] [place] [address] Dr. Meghan Vital Lymphocytes/100 WBC (Bld) 42.7 % Normal 20.5-60.0 [facility] Comment on above: Performed By: #### H CGSUB #### [facility] [address] [place] [address] Dr. Meghan Vital MANUAL DIFF REQ NO Normal [facility] Comment on above: Performed By: #### H CGSUB #### [facility] [address] [place] [address] Dr. Meghan Vital MCH (RBC) [Entitic mass] 27.4 pg Normal 26.7-34.0 [facility] Comment on above: Performed By: #### H CGSUB #### [facility] [address] [place] [address] Dr. Meghan Vital MCHC (RBC) [Mass/Vol] 32.1 g/dL Normal 29.9-35.2 [facility] Comment on above: Performed By: #### H CGSUB #### [facility] [address] [place] [address] Dr. Meghan Vital MCV (RBC) [Entitic vol] 85.3 fL Normal 81.0-99.0 [facility] Comment on above: Performed By: #### H CGSUB #### [facility] [address] [place] [address] Dr. Meghan Vital MONO # 0.6 103/ul Normal 0.3-0.8 [facility] Comment on above: Performed By: #### H CGSUB #### [facility] [address] [place] [address] Dr. Meghan Vital Monocytes/100 WBC (Bld) 6.1 % Normal 1.7-12.0 [facility] Comment on above: Performed By: #### H CGSUB #### [facility] [address] [place] [address] Dr. Meghan Vital NEUT # 4.3 103/ul Normal 1.4-6.5 [facility] Comment on above: Performed By: #### H CGSUB #### [facility] [address] [place] [address] Dr. Meghan Vital Neutrophils/100 WBC (Bld) 48.0 % Normal 43.0-75.0 [facility] Comment on above: Performed By: #### H CGSUB #### [facility] [address] [place] [address] Dr. Meghan Vital Platelet mean volume (Bld) [Entitic vol] 11.5 fL Normal 9.5-13.5 [facility] Comment on above: Performed By: #### H CGSUB #### [facility] [address] [place] [address] Dr. Meghan Vital PLT 251 103/ul Normal 150-450 [facility] Comment on above: Performed By: #### H CGSUB #### [facility] [address] [place] [address] Dr. Meghan Vital RBC 4.97 106/ul Normal 4.20-5.40 [facility] Comment on above: Performed By: #### H CGSUB #### [facility] [address] [place] [address] Dr. Meghan Vital WBC 9.0 103/ul Normal 4.0-11.0 [facility] Comment on above: Performed By: #### H CGSUB #### [facility] [address] [place] [address] Dr. Meghan Vital FREE T4on 11-21-2022 Free T4 [Mass/Vol] 1.03 ng/dL Normal 0.76-1.46 [facility] Comment on above: Performed By: #### F T4 #### [facility] [address] [place] [address] Dr. Meghan Vital GLYCOHEMOGLOBIN A1Con 2022 ADA RECOMMENDATION SEE BELOW Normal [facility] Comment on above: Result Comment: ADA RECOMMENDED LIMIT 4.0 - 6.0 ADA THERAPEUTIC TARGET < 7.0 ACTION SUGGESTED > 7.0 Performed By: #### H CGSUB #### [facility] [address] [place] [address] Dr. Meghan Vital Glucose [Mass/Vol] 97 mg/dL Normal [facility] Comment on above: Performed By: #### H CGSUB #### [facility] [address] [place] [address] Dr. Meghan Vital HbA1c (Bld) [Mass fraction] 5.0 % Normal 4.5-6.2 [facility] Comment on above: Performed By: #### H CGSUB #### [facility] [address] [place] [address] Dr. Meghan Vital TSHon 11-21-2022 TSH 1.636 uIU/mL Normal 0.358-3.74 0 [facility] Comment on above: Performed By: #### H CGSUB #### [facility] [address] [place] [address] Dr. Meghan Vital PROGESTERONEon 10-12-2022 Progesterone 6.8 ng/mL Normal [facility] Comment on above: Result Comment: Foll icular phase 0.1 - 0.9 Luteal phase 1.8 - 23.9 Ovulation phase 0.1 - 12.0 First trimester 11.0 - 44.3 Second trimester 25.4 - 83.3 Third trimester 58.7 - 214.0 Postmenopausal 0.0 - 0.1 Performed By: #### H CGSUB #### [facility] [address] [place] [address] Dr. Meghan Vital CBC AUTO DIFFon 09-23-2022 BASO # 0.1 103/ul Normal 0.0-0.1 [facility] Comment on above: Performed By: #### C BC #### [facility] [address] [place] [address] Dr. Meghan Vital Basophils/100 WBC (Bld) 1.2 % Normal 0.2-2.0 [facility] Comment on above: Performed By: #### C BC #### [facility] [address] [place] [address] Dr. Meghan Vital EO # 0.2 103/ul Normal 0.0-0.7 [facility] Comment on above: Performed By: #### C BC #### [facility] [address] [place] [address] Dr. Meghan Vital Eosinophils/100 WBC (Bld) 2.4 % Normal 0.9-7.0 [facility] Comment on above: Performed By: #### C BC #### [facility] [address] [place] [address] Dr. Meghan Vital Erythrocyte distribution width (RBC) [Ratio] 13.1 % Normal 11.0-15.0 [facility] Comment on above: Performed By: #### C BC #### [facility] [address] [place] [address] Dr. Meghan Vital Hematocrit (Bld) [Volume fraction] 38.1 % Normal 36.0-48.0 [facility] Comment on above: Performed By: #### C BC #### [facility] [address] [place] [address] Dr. Meghan Vital Hemoglobin (Bld) [Mass/Vol] 13.4 g/dL Normal 12.0-16.0 [facility] Comment on above: Performed By: #### C BC #### [facility] [address] [place] [address] Dr. Meghan Vital IG # 0.01 10e3/ul Normal 0.00-0.03 [facility] Comment on above: Performed By: #### C BC #### [facility] [address] [place] [address] Dr. Meghan Vital IG % 0.1 % Normal 0.0-0.5 [facility] Comment on above: Performed By: #### C BC #### [facility] [address] [place] [address] Dr. Meghan Vital LYMPH # 3.4 103/ul Normal 1.2-3.8 [facility] Comment on above: Performed By: #### C BC #### [facility] [address] [place] [address] Dr. Meghan Vital Lymphocytes/100 WBC (Bld) 45.2 % Normal 20.5-60.0 [facility] Comment on above: Performed By: #### C BC #### [facility] [address] [place] [address] Dr. Meghan Vital MANUAL DIFF REQ NO Normal [facility] Comment on above: Performed By: #### C BC #### [facility] [address] [address] [address] Meghan Vital MCH (RBC) [Entitic mass] 27.8 pg Normal 26.7-34.0 [facility] Comment on above: Performed By: #### C BC #### [facility] [address] [place] [address] Dr. Meghan Vital MCHC (RBC) [Mass/Vol] 35.2 g/dL Normal 29.9-35.2 [facility] Comment on above: Performed By: #### C BC #### [facility] [address] [place] [address] Dr. Meghan Vital MCV (RBC) [Entitic vol] 79.0 fL Critically low 81.0-99.0 [facility] Comment on above: Performed By: #### C BC #### [facility] [address] [place] [address] Dr. Meghan Vital MONO # 0.4 103/ul Normal 0.3-0.8 [facility] Comment on above: Performed By: #### C BC #### [facility] [address] [place] [address] Dr. Meghan Vital Monocytes/100 WBC (Bld) 5.3 % Normal 1.7-12.0 [facility] Comment on above: Performed By: #### C BC #### [facility] [address] [place] [address] Dr. Meghan Vital NEUT # 3.4 103/ul Normal 1.4-6.5 [facility] Comment on above: Performed By: #### C BC #### [facility] [address] [place] [address] Dr. Meghan Vital Neutrophils/100 WBC (Bld) 45.8 % Normal 43.0-75.0 [facility] Comment on above: Performed By: #### C BC #### [facility] [address] [place] [address] Dr. Meghan Vital Platelet mean volume (Bld) [Entitic vol] 11.4 fL Normal 9.5-13.5 [facility] Comment on above: Performed By: #### C BC #### [facility] [address] [address] [address] Meghan Vital PLT 280 103/ul Normal 150-450 [facility] Comment on above: Performed By: #### C BC #### [facility] [address] [address] [address] Meghan Vital RBC 4.82 106/ul Normal 4.20-5.40 [facility] Comment on above: Performed By: #### C BC #### [facility] [address] [address] [address] Meghan Vital WBC 7.5 103/ul Normal 4.0-11.0 [facility] Comment on above: Performed By: #### C BC #### [facility] [address] [place] [address] Dr. Meghan Vital FREE T4on 09-23-2022 Free T4 [Mass/Vol] 1.17 ng/dL Normal 0.76-1.46 [facility] Comment on above: Performed By: #### H CGSUB #### [facility] [address] [place] [address] Dr. Meghan Vital GLYCOHEMOGLOBIN A1Con 2022 ADA RECOMMENDATION SEE BELOW Normal [facility] Comment on above: Result Comment: ADA RECOMMENDED LIMIT 4.0 - 6.0 ADA THERAPEUTIC TARGET < 7.0 ACTION SUGGESTED > 7.0 Performed By: #### A 1C #### [facility] [address] [place] [address] Dr. Meghan Vital Glucose [Mass/Vol] 100 mg/dL Normal [facility] Comment on above: Performed By: #### A 1C #### [facility] [address] [place] [address] Dr. Meghan Vital HbA1c (Bld) [Mass fraction] 5.1 % Normal 4.5-6.2 [facility] Comment on above: Performed By: #### A 1C #### [facility] [address] [place] [address] Dr. Meghan Vital TSHon 09-23-2022 TSH 1.235 uIU/mL Normal 0.358-3.74 0 [facility] Comment on above: Performed By: #### T SH #### [facility] [address] [place] [address] Dr. Meghan Vital PREG QUANT HCGon 07-12-2022 HCG QUANT 1 mIU/mL Normal [facility] Comment on above: Performed By: #### P REGQNT #### [facility] [address] [place] [address] Dr. Meghan Vital HCG RANGE SEE BELOW [facility] Comment on above: Result Comment: 5-50 0.2-1 WEEK 50-500 1-2 WEEKS 100-5,000 2-3 WEEKS 500-10,000 3-4 WEEKS 1,000-50,000 4-5 WEEKS 10,000-100,000 5-6 WEEKS 15,000-200,000 6-8 WEEKS 10,000-100,000 2-3 MONTHS Performed By: #### P REGQNT #### [facility] [address] [place] [address] Dr. Meghan Vital XR HYSTEROSALPINGOGRAMon XR HYSTEROSALPINGOGRAM [...] by: YADIRA BAKER Date: 2022-07-12 12:12 Normal [facility] PROGESTERONEon 06-30-2022 Progesterone 20.9 ng/mL Normal [facility] Comment on above: Result Comment: Foll icular phase 0.1 - 0.9 Luteal phase 1.8 - 23.9 Ovulation phase 0.1 - 12.0 First trimester 11.0 - 44.3 Second trimester 25.4 - 83.3 Third trimester 58.7 - 214.0 Postmenopausal 0.0 - 0.1 Performed By: #### P PHIL #### [facility] [address] [place] [address] Dr. Meghan Vital HCG-BETA SUBUNIT QUANTon hCG,Beta Subunit,Qnt,Serum <1 Normal [facility] Comment on above: Result Comment: Fema le (Non-) 0 - 5 (Postmenopausal) 0 - 8 . Female () Weeks of Gestation 3 6 - 71 4 10 - 750 5 217 - 7138 6 158 - 15198 7 [phone] [phone] 8 16636 -[phone] 9 21147 -417498 10 32915 -726151 12 56896 -228768 14 56132 - 33452 15 99685 - 57695 16 9054 - 56071 17 8175 - 14807 18 8099 - 00460 Jeremy ECLIA methodology Performed By: #### H CGSUB #### [facility] [address] [place] [address] Dr. Meghan Vital HCG-BETA SUBUNIT QUANTon hCG,Beta Subunit,Qnt,Serum <1 Normal [facility] Comment on above: Result Comment: Fema le (Non-) 0 - 5 (Postmenopausal) 0 - 8 . Female () Weeks of Gestation 3 6 - 71 4 10 - 750 5 217 - 7138 6 158 - 03179 7 3697 -[phone] 8 05061 -153051 9 72952 -715253 10 78012 -104852 12 55263 -045297 14 42430 - 00299 15 48296 - 85384 16 9069 - 63201 17 8175 - 95270 18 8099 - 10471 Jeremy ECLIA methodology Performed By: #### H CGSUB #### [facility] [address] [place] [address] Dr. Meghan Vital PROGESTERONEon 02-26-2022 Progesterone <0.1 Normal [facility] Comment on above: Result Comment: Foll icular phase 0.1 - 0.9 Luteal phase 1.8 - 23.9 Ovulation phase 0.1 - 12.0 First trimester 11.0 - 44.3 Second trimester 25.4 - 83.3 Third trimester 58.7 - 214.0 Postmenopausal 0.0 - 0.1 Performed By: #### P PHIL #### [facility] [address] [place] [address] Dr. Meghan Vital US PELVIS AND TRANSVAGon [...] Date: 2022-02-24 16:57 Normal [facility] Ambulatory Clinical Summaryo n 12-22-2020 Ambulatory Clinical Summary {[id number] Normal [facility] Family Medicine Office/Clini c Noteon 12-22-2020 Family [...] documented 3008F Office Visit Level 2 Est 48786 2. Tobacco use (Z72.0: Tobacco use) We [...] smoker 1034F Office Visit Level 2 Est 44778 3. Hordeolum externum right lower eyelid (H00.012: Hordeolum externum right lower eyelid) Will treat with bacitracin ointment. May use warm compresses 3-4 x day. FU with PCP if not gradually improving over next 7 days, sooner if significantly spreading erythema, edema, warmth, fever. Patient verbalized understanding of tx plan Ordered: Office Visit Level 2 Est 57283 Orders: erythromycin ophthalmic, 0.5 in, OPTH, QID [...] 11/17/2020 Family History Family history is negative [facility] Comment on above: Result Comment: Elec [...] methods. Where to find more information ? [place] [employer]: www.lung.org ? [place] [employer]: www.cancer.org Summary ? Smoking cigarettes [...] 09/21/2005 Document Revised: 11/15/2018 Document Reviewed: 08/18/2017 [employer] Patient Education ? 2019 [employer]. [facility] Provider Letteron 12-22-2020 Provider Letter (Inserted Image. Mary ble to display) December 22, 2020 FARTUN RODRÍGUEZ [address] [place] [phone] FARTUN RODRÍGUEZ 1985 To Whom It May Concern, Please excuse above patient from work. 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 We encourage you to visit www.Contextoolfree.gov access to helpful resources including free telephone [...] 30 days Tobacco Use:. Cigarettes, Yes, 11/17/2020 [facility] Comment on above: Result Comment: Elec [...] to help relieve symptoms, such as: ? Kgnw-koj-vadoeqt cold medicines. ? Cough suppressants. Coughing is [...] other clear broths. General instructions ? Take fnpl-yqp-ocykifc and prescription medicines only as told by [...] and water are not available, use hand boil off worker. ? Avoid touching your mouth, face, eyes, [...] common infecti (more content not included)... Normal [facility] Provider Letteron 11-17-2020 Provider Letter (Inserted Image. Mary ble to display) November 17, 2020 FARTUN RODRÍGUEZ [address] [place] [phone] FARTUN RODRÍGUEZ 1985 To Whom It May Concern, Please excuse above patient from work. Date of Illness: From: 11/17/2020 To: 11/18/2020 May Return to Work On:11/19/2020 Comments: Patient above was seen at [facility] on 11/17/2020. Sincerely, [facility] [address] [place] [address] Normal [facility] Provider Letteron 09-22-2020 Provider Letter (Inserted Image. Mary ble to display) September 22, 2020 FARTUN RODRÍGUEZ [address] [place] [phone] FARTUN RODRÍGUEZ 1985 To Whom It May Concern, Please excuse above patient from work. Date of Illness: From: 09/22/2020 May Return to Work On:09/23/2020 Comments: The above patient may return back to work on the above date. Sincerely, [facility] [address] [place] [address] [facility] SURGICAL PATH REPORTon 07-31 SURGICAL PATH REPORT [facility] Department of Pathology [address] [place] [phone] Name: FARTUN RODRÍGUEZ : 1985 Financial [id number] Number: Gender: Female Location: [facility] Admit 34 years Attending FERMÍN HURTADO Age: Provider: Ordering FERMÍN HURTADO Provider: Consulting: Surgical Pathology Report ACCESSION: COLLECTED DATE/TIME: RECEIVED DATE/TIME: PATHOLOGIST: [id number] 07/30/2020 13:19 EST 07/30/2020 13:19 EST SHADE MULLER MD Final Diagnosis Report for [employer] [place] [employer]: - [employer]. [...] cm. There are no grossly identifiable parts. Cost Specialist sections are submitted in three cassettes. MP/ekaterina 07/30/2020 Tissue pathology report for: [facility], [address] [place] [address]; Print Date/ 07/31/2020 15:05 EST Number: Time: [facility] Department of Pathology [address] [place] [address] Name: FARTUN RODRÍGUEZ : 1985 Financial [id number] Number: Gender: Female Location: [facility] Admit 34 years Attending FERMÍN HURTADO Age: Provider: Ordering FERMÍN HURTADO Provider: Consulting: Surgical Pathology Report ACCESSION: COLLECTED DATE/TIME: RECEIVED DATE/TIME: PATHOLOGIST: [id number] 07/30/2020 13:19 EST 07/30/2020 13:19 EST YOHANA MESSER, SHADE Gross Description PATHOLOGY SERVICES PROVIDED BY [employer] (CLIA #[id number]) in cooperation with [facility] at [address] [place] [address] (CLIA #[id number]) Codes CPT CODE: 72491 Print Date07/31/2020 15:05 EST Number: Time: Normal [facility] Comment on above: Performed By: #### [id number] #### [facility] Laboratory Services [address] [place] [address] [employer] Supervisor: Shade Muller MD Consenton 05-29-2020 Consent [id number]:127 Normal [facility] Registrationon 05-29-2020 Registration [id number]:127 Normal [facility] Influenza A,Bon 11-08-2018 Influenza A, Rapid Ag Negative Normal Negative [facility] Comment on above: Performed By: #### 5 [id number] #### [facility] [address] [place] [address] Influenza B, Rapid Ag Negative Normal Negative [facility] Comment on above: Performed By: #### 5 [id number] #### [facility] [address] [place] [address] Urinalysis with Reflex Cultu reon 11-08-2018 Appearance Nom (U) Clear Normal Clear [facility] Comment on above: Performed By: #### U ARFX #### [facility] [address] [place] [address] Ascorbic Acid Negative Normal Negative [facility] Comment on above: Performed By: #### U ARFX #### [facility] [address] [place] [address] Automated Urine Microscopy Not indicated Normal [facility] Comment on above: Performed By: #### U ARFX #### [facility] [address] [place] [address] Bilirubin mass conc Negative Normal Negative [facility] Comment on above: Performed By: #### U ARFX #### [facility] [address] [place] [address] Blood Negative Normal Negative [facility] Comment on above: Performed By: #### U ARFX #### [facility] [address] [place] [address] Color Nom (U) Yellow Normal [facility] Comment on above: Performed By: #### U ARFX #### [facility] [address] [place] [address] Glucose mass conc 50 mg/dL Abnormal Negative [facility] Comment on above: Performed By: #### U ARFX #### [facility] [address] [place] [address] Ketones Ql (U) Negative Normal Negative [facility] Comment on above: Performed By: #### U ARFX #### [facility] [address] [place] [address] Leukocytes Esterase Negative Normal Negative [facility] Comment on above: Performed By: #### U ARFX #### [facility] [address] [place] [address] Nitrite Ql (U) Negative Normal Negative [facility] Comment on above: Performed By: #### U ARFX #### [facility] [address] [place] [address] pH (Bld) 5.0 Normal 5.0-9.0 [facility] Comment on above: Performed By: #### U ARFX #### [facility] [address] [place] [address] Protein mass conc (U) Negative Normal Negative [facility] Comment on above: Performed By: #### U ARFX #### [facility] [address] [place] [address] Specific gravity Relative Density (U) 1.026 Normal 1.003-1.03 5 [facility] Comment on above: Performed By: #### U ARFX #### [facility] [address] [place] [address] Urobilinogen Qn (U) <2.0 Normal Negative Formerly [...] hours. Performed By: #### U ARFX #### [facility] [address] [place] [address] STREP GROUP A AG QUALon 08-29 STREP GROUP A AG QUAL STREP GROUP A AG Q UAL GROUP A STREP NEGATIVE FOR STREPTOCOCCUS GROUP A ANTIGEN THROAT CULTURE: REFERRED TO [facility] FOR CULTURE CONFIRMATION CULTURE RESULT: CULTURE NEGATIVE FOR BETA STREP GROUP A Normal [facility] Comment on above: Performed By: #### M STREPA ####[facility] [id number] [place] [address] ED Provider Reporton [address] [facility] [place], [place] [address]Patient Name: FARTUN RODRÍGUEZ : [birth year]Acct #: [id number] Unit #: [id number] ER Arrival Date: 09/21/17 ER Physician: Yoshi [...] illicit drug usePast Social HistorySmoking Status:FORMER SMOKERTobacco UseCIGARETTESPacks/Aos6Isxq :LESS THAN 1 YEAR AGOReview of SystemsReview [...] Resp B/P B/P Pulse O2 O2 Flow QcD5Ambq Ox Delivery Rate01/25 1712 36.5 83 18 [...] to follow-up with PCP.Disposition DecisionDischargeDispositio n Date09/21/17Decision Opod2742YalzskpvilcPbdzOytv obiologyDate/Time Procedure - StatusSource Yhhiyc16/25 1745 Group A Streptococcus Screen (BETHANY) - [...] Cali Gregory P. DO 09/22/17 1146 Normal [facility] Vital Signs Date Time Vital Sign Value Performing Clinician Facility 10-29-2024 10:05-0500 Body mass index (BMI) [Ratio] 31.21 kg/m2 [employer] Work Phone: [facility] 10-29-2024 10:05-0500 Body weight 82.46 kg Fermín Bryant DO Work Phone: [facility] 10-29-2024 10:05-0500 Diastolic blood pressure 64 mm[Hg] Fermín Bryant DO Work Phone: [facility] 10-29-2024 10:05-0500 Systolic blood pressure 100 mm[Hg] Fermín Bryant DO Work Phone: [facility] 10-03-2024 11:32-0500 Body mass index (BMI) [Ratio] 30.04 kg/m2 Fermín Bryant DO Work Phone: [facility] 10-03-2024 11:32-0500 Body weight 79.38 kg Fermín Bryant DO Work Phone: [facility] 10-03-2024 11:32-0500 Diastolic blood pressure 68 mm[Hg] Fermín Bryant DO Work Phone: [facility] 10-03-2024 11:32-0500 Systolic blood pressure 120 mm[Hg] Fermín Bryant DO Work Phone: [facility] 09-06-2024 10:13-0500 Body weight 77.11 kg Ermelinda Nichols MD Work Phone: [facility] 09-04-2024 15:21-0500 Body mass index (BMI) [Ratio] 28.8 kg/m2 Fermín Bryant DO Work Phone: [facility] 09-04-2024 15:21-0500 Body weight 76.11 kg Fermín Bryant DO Work Phone: [facility] 09-04-2024 15:21-0500 Diastolic blood pressure 64 mm[Hg] Fermín Bryant DO Work Phone: [facility] 09-04-2024 15:21-0500 Systolic blood pressure 100 mm[Hg] Fermín Bryant DO Work Phone: [facility] 07-31-2024 14:58-0500 Body mass index (BMI) [Ratio] 27.7 kg/m2 Fermín Bryant DO Work Phone: [facility] 07-31-2024 14:58-0500 Body weight 73.21 kg Fermín Bryant DO Work Phone: [facility] 07-31-2024 14:58-0500 Diastolic blood pressure 62 mm[Hg] Fermín Bryant DO Work Phone: [facility] 07-31-2024 14:58-0500 Systolic blood pressure 100 mm[Hg] Fermín Bryant DO Work Phone: [facility] 07-04-2024 15:55-0500 Body mass index (BMI) [Ratio] 27.48 kg/m2 [facility] 07-04-2024 15:55-0500 Body weight 72.63 kg [facility] Nurse [facility] 07-04-2024 15:55-0500 Diastolic blood pressure 60 mm[Hg] [facility] Nurse [facility] 07-04-2024 15:55-0500 Systolic blood pressure 110 mm[Hg] [facility] Nurse [facility] 05-31-2023 09:00-0400 Body height 162.56 cm Everett Oliveros Other [employer] Other 05-31-2023 09:00-0400 Body mass index (BMI) [Ratio] 24.54 kg/m2 Everett Oliveros Other [facility] Other 05-31-2023 09:00-0400 Body weight 64.86 kg Everett Oliveros Other [facility] Other 05-31-2023 09:00-0400 Diastolic blood pressure 65 mm[Hg] Everett Oliveros Other [facility] Other 05-31-2023 09:00-0400 Systolic blood pressure 98 mm[Hg] Everett Oliveros Other [facility] Other 11-08-2022 16:15-0400 Body height 162.56 cm Everett Oliveros Other [facility] Other 11-08-2022 16:15-0400 Body mass index (BMI) [Ratio] 25.4 kg/m2 Everett Oliveros Other [facility] Other 11-08-2022 16:15-0400 Body temperature 97.4 [degF] Everett Oliveros Other [facility] Other 11-08-2022 16:15-0400 Body weight 67.13 kg Everett Oliveros Other [facility] Other 11-08-2022 16:15-0400 Diastolic blood pressure 74 mm[Hg] Everett Oliveros Other [facility] Other 11-08-2022 16:15-0400 SaO2% (BldA) [Mass fraction] 99 % Everett Oliveros Other [facility] Other 11-08-2022 16:15-0400 Systolic blood pressure 120 mm[Hg] Everett Oliveros Other [facility] Other 06-12-2022 12:15-0400 Body height 162.56 cm Yolis James Other [facility] Other 06-12-2022 12:15-0400 Body mass index (BMI) [Ratio] 25.74 kg/m2 Yolis James Other [facility] Other 06-12-2022 12:15-0400 Body temperature 98.1 [degF] Yolis James Other [facility] Other 06-12-2022 12:15-0400 Body weight 68.04 kg Yolis James Other [facility] Other 06-12-2022 12:15-0400 Diastolic blood pressure 61 mm[Hg] Yolis James Other [facility] Other 06-12-2022 12:15-0400 Respiratory rate 18 /min Yolis James Other [facility] Other 06-12-2022 12:15-0400 SaO2% (BldA) [Mass fraction] 100 % Yolis James Other [facility] Other 06-12-2022 12:15-0400 Systolic blood pressure 108 mm[Hg] Yolis James Other [facility] Other Encounters Encounter Date Encounter Type Care Provider Facility Start: 10-29-2024 End: 10-29-2024 Bamboo flowsheet Fermín Bryant DO Work Phone: [facility] Start: 10-29-2024 End: 10-29-2024 Bamboo flowsheet Fermín Bryant DO Work Phone: [facility] Start: 10-29-2024 End: 10-29-2024 flow sheet Fermín Bryant DO Work Phone: [facility] Comment on above: Third trimester preg eb; 29 weeks gestation of Start: 10-29-2024 End: 10-29-2024 ambulatory FERMÍN BRYANT Not Available Start: 10-28-2024 End: 10-28-2024 Refill Ermelinda Nichols MD Work Phone: [facility] Comment on above: History of bariatric surgery Start: 10-09-2024 End: 10-09-2024 Clinisync Result Encounter Fermín Bryant DO Work Phone: [facility] External Department Unsolicited Start: 10-09-2024 End: 10-09-2024 Clinisync Result Encounter Fermín Bryant DO Work Phone: [facility] Unsolicited Start: 10-08-2024 End: 10-08-2024 ambulatory [facility] Start: 10-03-2024 End: 10-03-2024 Bamboo flowsheet Fermín Bryant DO Work Phone: [facility] Start: 10-03-2024 End: 10-03-2024 Bamboo flowsheet Fermín Bryant DO Work Phone: [facility] Start: 10-03-2024 End: 10-03-2024 flow sheet Fermín Bryant DO Work Phone: [facility] Comment on above: Diabetes mellitus sc reening; 25 weeks gestation of ; Second trimester ; History of bariatric surgery; resulting from in vitro fertilization, antepartum Start: 10-03-2024 End: 10-03-2024 ambulatory FERMÍN RIZZOO Not Available Start: 09-09-2024 End: 09-09-2024 Orders Only Jazmine Black RN [facility] Comment on above: resulting from assisted reproductive technology, second trimester (Primary Dx); Low lying placenta nos or without hemorrhage, second trimester; Advanced maternal age in multigravida, second trimester Start: 09-06-2024 End: 09-06-2024 Office consultation new/estab patient 60 min Ermelinda Nichols MD Work Phone: [facility] Comment on above: resulting from assisted reproductive technology, second trimester (Primary Dx); 21 weeks gestation of ; History of bariatric surgery; Advanced maternal age, 1st , second trimester; Low lying placenta nos or without hemorrhage, second trimester Start: 09-06-2024 End: 09-06-2024 ambulatory [facility] Start: 09-04-2024 End: 09-04-2024 flow sheet Fermín Bryant DO Work Phone: [facility] Comment on above: Second trimester pre gnancy; 21 weeks gestation of Start: 09-04-2024 End: 09-04-2024 ambulatory FERMÍN BRYANT Not Available Start: 09-04-2024 End: 09-04-2024 Bamboo flowsheet Fermín Bryant DO Work Phone: [facility] Start: 09-04-2024 End: 09-04-2024 Bamboo flowsheet Fermín Bryant DO Work Phone: [facility] Start: 08-09-2024 End: 08-09-2024 Chart abstracting Ermelinda Nichols MD Work Phone: [facility] Start: 08-08-2024 End: 08-11-2024 Clinisync Result Encounter Fermín Bryant DO Work Phone: [facility] External Department Unsolicited Start: 08-08-2024 End: 08-11-2024 Clinisync Result Encounter Fermín Bryant DO Work Phone: [facility] External Department Unsolicited Start: 07-31-2024 End: 07-31-2024 Patient encounter procedure Fermín Bryant DO Work Phone: [facility] Start: 07-31-2024 End: 07-31-2024 Periodic preventive med est patient 18-39 yrs Fermín Bryant DO Work Phone: [facility] Comment on above: 16 weeks gestation o f ; Second trimester ; Well woman exam with routine gynecological exam; Screening, , for anatomic survey; Exposure to STD; Vaginal discharge; Ear infection Start: 07-31-2024 End: 07-31-2024 ambulatory FERMÍN BRYANT Not Available Start: 07-31-2024 End: 07-31-2024 Bamboo flowsheet Fermín Bryant DO Work Phone: [facility] Start: 07-31-2024 End: 08-07-2024 Bamboo flowsheet Fermín Bryant DO Work Phone: [facility] Start: 07-31-2024 End: 08-07-2024 Clinisync Result Encounter Fermín Bryant DO Work Phone: [facility] Unsolicited Start: 07-31-2024 End: 08-03-2024 External Result Encounter Fermín Bryant DO Work Phone: [facility] Unsolicited Start: 07-17-2024 End: 07-17-2024 Clinisync Result Encounter Fermín Bryant DO Work Phone: [facility] Unsolicited Start: 07-17-2024 End: 07-17-2024 Clinisync Result Encounter Fermín Bryant DO Work Phone: [facility] Unsolicited Start: 07-04-2024 End: 07-04-2024 ambulatory FERMÍN BRYANT Not Available Start: 07-04-2024 End: 07-04-2024 Office outpatient visit 5 minutes [facility] Bryant Nurse [facility] Comment on above: GA: 12w4d Start: 05-31-2023 End: 05-31-2023 ambulatory Everett Oliveros Other [facility] Other Start: 05-31-2023 Office outpatient vi sit 15 minutes Everett Oliveros [facility] Start: 01-17-2023 End: 01-25-[address] FERMÍN HURTADO . Facility: Start: 01-09-2023 End: 01-10-[address] FERMÍN HURTADO . Facility: Start: 11-26-2022 Letter encounter Luisa Joo SPINE SPECIALIST-CREATIVE SERVICES COORDINATOR Work Phone: [facility] Start: 11-21-2022 End: 11-21-[address] FERMÍN HURTADO . Facility: Start: 11-21-2022 End: 11-22-[address] FERMÍN HURTADO . Facility: Start: 11-08-2022 End: 11-08-2022 ambulatory Everett Oliveros Other [facility] Other Start: 11-08-2022 Office outpatient vi sit 15 minutes Everett Oliveros [facility] Start: 10-11-2022 End: 10-12-[address] FERMÍN HURTADO . Facility: Start: 09-23-2022 End: 09-24-[address] FERMÍN HURTADO . Facility: Start: 09-04-2022 Letter encounter Luisa Ge SPINE SPECIALIST-CREATIVE SERVICES COORDINATOR Work Phone: [facility] Start: 07-12-2022 End: 07-12-[address] FERMÍN HURTADO . Facility: Start: 06-29-2022 End: 06-30-[address] FERMÍN HURTADO . Facility: Start: 06-12-2022 End: 06-12-2022 ambulatory Yolis James Other [facility] Other Start: 06-12-2022 Office outpatient ne w 20 minutes Yolis James [facility] Start: 05-05-[address] FERMÍN HURTADO . Facili ty: Start: 04-27-2022 End: 04-28-[address] FERMÍN HURTADO . Facility: Start: 03-23-2022 End: 03-24-[address] FERMÍN HURTADO . Facility: Start: 02-25-2022 End: 02-26-[address] FERMÍN HURTADO . Facility: Start: 02-24-2022 End: 02-25-2022 ambulatory NONE LISTED REQUEST Facility: Start: 05-11-2020 ambulatory Swathi DANIEL Facility:[facility] Start: 11-07-2018 End: 11-08-2018 Emergency department patient visit NO FAMILY DOCTOR NO FAMILY DOCTOR Facility:[facility] [employer] Start: 09-21-2017 Emergency department patient visit No Family Physician Facility:[facility] Procedures Date Procedure Procedure Detail Performing Clinician Start: 10-29-2024 Urnls dip stick/tabl et rgnt non-auto w/o micrscp Fermín Bryant DO Work Phone: Start: 10-09-2024 ALL CBC WITH AUTO DIFF Fermín Bryant DO Work Phone: Start: 10-03-2024 Urnls dip stick/tabl et rgnt non-auto w/o micrscp Fermín Bryant DO Work Phone: Start: 09-04-2024 Urnls dip stick/tabl et rgnt non-auto w/o micrscp Fermín Bryant DO Work Phone: Start: 08-08-2024 AFP, SERUM, OPEN SPI NA BIFIDA Fermín Bryant DO Work Phone: Start: 07-31-2024 RECURRENT VAGINITIS (HTRX) Fermín Bryant DO Work Phone: Start: 07-31-2024 Urnls dip stick/tabl et rgnt non-auto w/o micrscp Fermín Bryant DO Work Phone: Start: 07-31-2024 IGP,APTIMA HPV,AGE GDLN Fermín Bryant DO Work Phone: Start: 07-31-2024 Microscopic observat ion [Identifier] in Cervix by Cyto stain Ermelinda Nichols MD Work Phone: Start: 07-17-2024 ALL CBC WITH AUTO DIFF Fermín Bryant DO Work Phone: Start: 07-04-2024 Urnls dip stick/tabl et rgnt non-auto w/o micrscp Fermín Bryant DO Work Phone: Start: 07-08-2019 Microscopic observat ion [Identifier] in Cervix by Cyto stain Luisa Ge APRN-[facility] Work Phone: Plan of Treatment Date Care Activity Detail Author Start: 2036 Shingles (RZV) Vacci ne (1 of 2) Shingles (RZV) Vaccine (1 of 2) [facility] Start: 07-31-2027 Screening for malign ant neoplasm of cervix Pap Smear [facility] Start: 09-09-2025 End: 09-09-2025 US MFM with or without consult US MFM with or without consult Imaging Routine resulting from assisted reproductive technology, second trimester Low lying placenta nos or without hemorrhage, second trimester Advanced maternal age in multigravida, second trimester Expected: 09/09/2025 (Approximate), Expires: 09/09/2025 [facility] Work Phone: Comment on above: Expected: 09/09/2025 (Approximate), Expires: 09/09/2025 Start: 09-06-2025 Tobacco Screening Tobacco Screening [facility] Start: 11-19-2024 Subsequent hospital visit by physician 11/19/2024 1:00 PM EDT Hospital Encounter [facility] [address] [place] [phone] [facility] Start: 11-12-2024 End: 11-12-2024 Patient encounter procedure 11/12/2024 10:00 AM EDT Routine [facility] [address] [place] [id number] Fermín Hurtado, DO [address] [place], [place] [id number] [facility] Start: 10-29-2024 End: 10-29-2024 Patient encounter procedure [facility] Comment on above: Arrived Start: 10-08-2024 End: 10-08-2024 Patient encounter procedure 10/08/2024 2:15 PM EST Appointment [facility] [address] [place] [id number] [facility] Start: 10-03-2024 End: 10-03-2025 CBC panel - Blood by Automated count CBC Lab Routine Diabetes mellitus screening Expected: 10/03/2024 (Approximate), Expires: 10/03/2025 [facility] Work Phone: Comment on above: Expected: 10/03/2024 (Approximate), Expires: 10/03/2025 Start: 10-03-2024 End: 10-03-2024 Patient encounter procedure 10/03/2024 11:10 AM EST Routine [facility] [address] [place] [phone] Fermín Hurtado, DO [address] [facility] [place] [address] Arrived [facility] Comment on above: Arrived Start: 10-03-2024 End: 10-03-2024 Patient encounter procedure 10/03/2024 8:50 AM EST Routine [facility] [address] [place] [id number] Fermín Hurtado, DO [address] [place] [address] [facility] Start: 09-06-2024 End: 09-06-2024 Patient encounter procedure [facility] Start: 09-04-2024 End: 09-04-2024 Patient encounter procedure [facility] Comment on above: Arrived Start: 07-31-2024 End: 07-31-2024 Patient encounter procedure [facility] Comment on above: Arrived Start: 07-31-2024 End: 10-01-2024 Alpha fetoprotein, maternal Alpha fetoprotein, maternal Lab Routine Second trimester Well woman exam with routine gynecological exam Expected: 07/31/2024 (Approximate), Expires: 10/01/2024 [facility] Comment on above: Expected: 07/31/2024 (Approximate), Expires: 10/01/2024 Start: 07-31-2024 End: 07-31-2025 US for US OB ANATOMY SINGLE W US OB CERVICAL LENGTH Imaging Routine Screening, , for anatomic survey Expected: 07/31/2024 (Approximate), Expires: 07/31/2025 [facility] Comment on above: Expected: 07/31/2024 (Approximate), Expires: 07/31/2025 Start: 07-04-2024 End: 07-04-2025 ABO/Rh ABO/Rh Lab Routine Missed menses , unspecified gestational age Expected: 07/04/2024 (Approximate), Expires: 07/04/2025 [facility] Comment on above: Expected: 07/04/2024 (Approximate), Expires: 07/04/2025 Start: 07-04-2024 End: 07-04-2025 Blood type and Indirect antibody screen panel - Blood Type and screen Lab Routine Missed menses , unspecified gestational age Expected: 07/04/2024 (Approximate), Expires: 07/04/2025 [facility] Work Phone: Comment on above: Expected: 07/04/2024 (Approximate), Expires: 07/04/2025 Start: 07-04-2024 End: 07-04-2025 Drugs of abuse panel - Urine by Screen method Rapid drug screen, urine Lab Routine , unspecified gestational age Encounter for supervision of normal first in first trimester Expected: 07/04/2024 (Approximate), Expires: 07/04/2025 [facility] Comment on above: Expected: 07/04/2024 (Approximate), Expires: 07/04/2025 Start: 04-28-2024 Influenza vaccination Influenza Vacc ine [facility] Start: 06-26-2023 Tetanus vaccination Tetanus (T d or Tdap) [facility] Start: 07-08-2022 Screening for malign ant neoplasm of cervix Pap Smear [facility] Start: 05-28-2022 Influenza vaccination Influenza Vacc ine (#1) [facility] Start: 2007 Screening for malign ant neoplasm of cervix Pap Smear [facility] Start: 2005 DTaP,Tdap and Td Vaccines (1 - Tdap) DTaP,Tdap and Td Vaccines (1 - Tdap) [facility] Start: 2004 Adult BMI Screening Adult BMI Screen ing [facility] Start: 1998 Depression Screening Depression Scre ening [facility] Start: 1998 Tobacco Screening Tobacco Screening [facility] Start: 02-23-1987 COVID-19 Vaccine (#1) COVID-19 Vacci ne (#1) [facility] Start: 1986 Screening for malign ant neoplasm of breast Mammography shared decision making (35 through 39 years) [facility] Bacteria identified in Urine by Culture Urine culture Microbiology Routine Missed menses Ordered: 07/04/2024 [facility] Comment on above: Ordered: 07/04/2024 CBC W Auto Different ial panel - Blood CBC and differential Lab Routine Missed menses , unspecified gestational age Ordered: 07/04/2024 [facility] Comment on above: Ordered: 07/04/2024 CHLAMYDIA TRACHOMATI S (GENITO/STI) CHLAMYDIA TRACHOMATIS (GENITO/STI) Lab Routine Exposure to STD Ordered: 07/31/2024 [facility] Comment on above: Ordered: 07/31/2024 Cytology Cervical or vaginal smear or scraping study Pap Smear Pathology and Cytology Routine Well woman exam with routine gynecological exam Ordered: 07/31/2024 [facility] Comment on above: Ordered: 07/31/2024 Hemoglobin A1c/Hemoglobin.total in Blood Hemoglobin A1c Lab Routine Missed menses , unspecified gestational age Ordered: 07/04/2024 [facility] Comment on above: Ordered: 07/04/2024 Hepatitis B virus surface Ag [Presence] in Serum or Plasma by Immunoassay Hepatitis B surface antigen Lab Routine Missed menses , unspecified gestational age Ordered: 07/04/2024 [facility] Comment on above: Ordered: 07/04/2024 Hepatitis C virus Ab [Presence] in Serum or Plasma by Immunoassay Hepatitis C antibody Lab Routine Missed menses , unspecified gestational age Ordered: 07/04/2024 [facility] Comment on above: Ordered: 07/04/2024 HIV-1/HIV-2 antigen/antibody combination immunoassay HIV-1 and HIV-2 antibodies Lab Routine Missed menses , unspecified gestational age Ordered: 07/04/2024 [facility] Comment on above: Ordered: 07/04/2024 Human papilloma viru s DNA [Presence] in Unspecified specimen by Probe with amplification HPV DNA probe, amplified Microbiology Routine Well woman exam with routine gynecological exam Ordered: 07/31/2024 [facility] Comment on above: Ordered: 07/31/2024 Neisseria gonorrhoea e DNA [Presence] in Unspecified specimen by SANJU with probe detection Neisseria gonorrhea DNA probe, direct Lab Routine Exposure to STD Ordered: 07/31/2024 [facility] Comment on above: Ordered: 07/31/2024 Reagin Ab [Presence] in Serum by RPR RPR Lab Routine Missed menses , unspecified gestational age Ordered: 07/04/2024 [facility] Comment on above: Ordered: 07/04/2024 Rubella antibody, IgG Rubella an tibody, IgG Lab Routine Missed menses , unspecified gestational age Ordered: 07/04/2024 [facility] Comment on above: Ordered: 07/04/2024 SURESWAB(R) ADVANCED VAGINITIS PLUS, TMA SURESWAB(R) ADVANCED VAGINITIS PLUS, TMA Pathology and Cytology Routine Vaginal discharge Ordered: 07/31/2024 [facility] Work Phone: Comment on above: Ordered: 07/31/2024 Immunizations Immunization Date Immunization Notes Care Provider Ubaldo araujo 10-23-2013 tuberculin skin test ; purified protein derivative solution, intradermal Luisa Ross SPINE SPECIALIST-CREATIVE SERVICES COORDINATOR Work Phone: [facility] 06-26-2013 tetanus toxoid, redu thalia diphtheria toxoid, and acellular pertussis vaccine, adsorbed Luisa Ross SPINE SPECIALIST-CREATIVE SERVICES COORDINATOR Work Phone: [facility] 05-08-2013 human papilloma viru s vaccine, quadrivalent Luisa Ross SPINE SPECIALIST-CREATIVE SERVICES COORDINATOR Work Phone: [facility] 01-10-2013 human papilloma viru s vaccine, quadrivalent Luisa Ross SPINE SPECIALIST-CREATIVE SERVICES COORDINATOR Work Phone: [facility] 11-15-2012 human papilloma viru s vaccine, quadrivalent Luisa Ross SPINE SPECIALIST-CREATIVE SERVICES COORDINATOR Work Phone: [facility] 10-16-2010 tetanus toxoid, redu thalia diphtheria toxoid, and acellular pertussis vaccine, adsorbed Luisa Ross SPINE SPECIALIST-CREATIVE SERVICES COORDINATOR Work Phone: [facility] Payers Date Payer Category Payer [facility] [id number] 2023 [employer] - Other [id number] 2023 Blue Cross Blue [facility] HUM [id number] 2013 Medicaid [id number] 1986 Unknown [id number] 2.16.840.1.555257.3.579.2. 355 1986 Unknown [id number] 2.16.840.1.745778.3.579.2. 732 1986 Unknown [id number] 2.16.840.1.928100.3.579.2. 593 1986 Unknown [id number] 2.16.840.1.093481.3.579.2. 593 1986 Unknown [id number] 2.16.840.1.239121.3.579.2. 593 1986 Unknown [id number] 2.16.840.1.164400.3.579.2. 593 1986 Unknown [id number] 2.16.840.1.742802.3.579.2. 593 1986 Unknown [id number] 2.16.840.1.636539.3.579.2. 593 1986 Unknown [id number] 2.16.840.1.816509.3.579.2. 593 1986 Unknown [id number] 2.16.840.1.149113.3.579.2. 593 1986 Unknown [id number] 2.16.840.1.336572.3.579.2. 593 1986 Unknown [id number] 2.16.840.1.146109.3.579.2. 593 1986 Unknown [id number] 2.16.840.1.574129.3.579.2. 593 1986 Unknown [id number] 2.16.840.1.882398.3.579.2. 593 1986 Unknown [id number] 2.16.840.1.528298.3.579.2. 593 1986 Unknown [id number] 2.16.840.1.498347.3.579.2. 1286 1986 Unknown [id number] 2.16.840.1.249408.3.579.2. 1286 1986 Unknown [id number] 2.16.840.1.026722.3.579.2. 1286 1986 Unknown [id number] 2.16.840.1.430995.3.579.2. 1259 1986 Unknown [id number] 2.16.840.1.599061.3.579.2. 1259 1986 Unknown [id number] 2.16.840.1.130799.3.579.2. 1259 1986 Unknown [id number] 2.16.840.1.131353.3.579.2. 1259 1986 Unknown [id number] 2.16.840.1.174454.3.579.2. 1259 1959 Medicaid [id number] 1959 Medicaid [id number] 2.16.840.1.063670.19 Social History Date Type Detail Facility Start: 09-06-2024 Sex Assigned At [facility] [employer] Other Start: 10-17-2017 Tobacco smoking status WAIS Ex-smoker [facility] End: 03-28-2017 History of tobacco use Current smoker [facility] End: 03-28-2017 History of tobacco use Cigarette Smoker [facility] Start: 10-17-2017 End: 09-06-2024 Cigarettes smoked current (pack per day) - Reported 0.5 [facility] Start: 10-17-2017 End: 09-06-2024 Tobacco use and exposure Smokeless tobacco non-user [facility] Start: 04-17-2020 Alcohol intake Current drinker of alcohol (finding) [facility] Start: 10-17-2017 Tobacco Comment Patient quit March 2017 [facility] Start: 1985 Sex Assigned At Female [facility] Tobacco smoking stat us WAIS Tobacco smoking consumption unknown [facility] Start: 04-20-2024 [facility] Start: 06-03-2023 Gender identity Identifies as female gender (finding) [facility] Start: 06-03-2023 Sexual orientation Heterosexual (finding) [facility] Start: 09-06-2024 Tobacco smoking status NHIS Never smoked tobacco [facility] Start: 09-06-2024 Alcoholic beverage intake Ex-drinker (finding) [facility] Within the past 12 months we worried whether our food would run out before we got money to buy more. Never True [facility] Start: 1986 [facility] Start: 08-06-2024 Sex Female (finding) [facility] [employer] Goals Date Patient Goal Desired Activity /State Personal health goal Clinical Notes 06-12-2022 to 10-29-2024 Trupti Gentile LPN - 10/29/2024 10:10 AM Kayleen Gentile LPN - 10/03/2024 11:10 AM Sara Del Castillo CMA - 09/06/2024 11:00 AM Zara Nichols MD - 09/06/2024 11:00 AM EST Note Date & Type Note Facility 10-29-2024 History of Present illness Narrative Reason for Appointment: Patient ID: Fartun Hall is a 39 y.o. female who presents for Routine Visit Patient presents today for Return OB appointment. MEDICATIONS Current Outpatient Medications Medication Instructions aspirin 81 mg, Daily Continuous Glucose Track Template Maker (Dexcom G6 concrete pourer) device Use as instructed Continuous Glucose Sensor (Dexcom G6 Sensor) misc 1 each, Does not apply, Every 10 days Continuous Glucose Transmitter (Dexcom G6 transmitter) misc Use as instructed cyanocobalamin (VITAMIN B-12) 100 mcg, Daily folic acid (FOLVITE) 1 mg, Daily multivitamin (Theragran) tablet 1 tablet, Daily omeprazole (PRILOSEC) 20 mg, Daily MV-Min-Fe Fum-FA-DHA ( 1 PO) 1 [...] No family history on file. SURGICAL HISTORY No past surgical history on file. REVIEW OF SYSTEMS Review of Systems: Review of Systems Cardiovascular: Positive for leg swelling. All other systems reviewed and are negative. OBJECTIVE Objective: Physical Exam Constitutional: Appearance: Normal appearance. She is well-developed. Cardiovascular: Rate and Rhythm: Normal rate and [...] nursing note reviewed. Exam conducted with a ferryboat helper present. Vitals: Estimated body mass index is 31.21 kg/m as calculated from the following: Height as of 11/21/22: 5' 4 . Weight as of this encounter: 181 lb 12.8 oz. BP: 100/64 No LMP recorded. Patient is . ASSESSMENT & PLAN ICD-10-CM 1. Third trimester Z34.93 POCT urinalysis dipstick manually resulted 2. 29 weeks gestation of Z3A.29 Patient presents today for a routine obstetrics appointment. Patient is currently 29w2d with a Estimated Date of Delivery: 01/12/25. Lower extremity swelling noted bilaterally. Patient is currently still seeing [facility] for growth scan/NST/BPP. Patient to return to clinic in 2 weeks and then she will be able to decide if she would like to have NST/BPPs done locally or continue with [facility]. Patient voiced that she is unabl eto put her work shoes on due to swelling and will be taking off work midway through this month. Documented by Trupti Gentile LPN on behalf of: Fermín Hurtado DO documented in this encounter [facility] 10-03-2024 History of Present illness Narrative Reason for Appointment: Patient ID: Fartun Hall is a 39 y.o. female who presents for Routine Visit Patient presents today for Return OB appointment. MEDICATIONS Current Outpatient Medications Medication Instructions aspirin 81 mg, Daily cyanocobalamin (VITAMIN B-12) 100 mcg, Daily folic acid (FOLVITE) 1 mg, Daily multivitamin (Theragran) tablet 1 tablet, Daily omeprazole (PRILOSEC) 20 mg, Daily MV-Min-Fe Fum-FA-DHA ( 1 PO) 1 [...] SYSTEMS Review of Systems: Review of Systems All other systems reviewed and are negative. OBJECTIVE Objective: Physical Exam Constitutional: Appearance: Normal appearance. She is well-developed. Cardiovascular: Rate and Rhythm: Normal rate and [...] nursing note reviewed. Exam conducted with a ferryboat helper present. Vitals: Estimated body mass index is 30.04 kg/m as calculated from the following: Height as of 11/21/22: 5' 4 . Weight as of this encounter: 175 lb. BP: 120/68 No LMP recorded. Patient is . ASSESSMENT & PLAN ICD-10-CM 1. Diabetes mellitus screening Z13.1 CBC Glucose tolerance, 1 hour CBC Glucose tolerance, 1 hour 2. 25 weeks gestation of Z3A.25 POCT urinalysis dipstick manually resulted 3. Second trimester Z34.92 POCT urinalysis dipstick manually resulted Patient presents today for a routine obstetrics appointment. Patient is currently 25w4d with a Estimated Date of Delivery: 01/12/25. Patient has follow up US with MFM to clear heart. Patient will notify office after next MFM appointment if she would like to have scans done locally. Patient given order for CBC and cancelled 1 hour gtt due to patients history of bariatric surgery. Patient will check sugars for 2 weeks and bring results to office for review. FreeStyle Emmy' will be called into patients pharmacy and if needed in the future refills will be able to be sent. Patient will call office with any concerns. Patient aware that PA may need to be done for glucose monitor and once patient has obtained supplies she will reach out to [employer] to have device placed on arm, patient was given blood sugar logs to bring to next appointment for review once device is placed. Documented by Trupti Gentile LPN on behalf of: Fermín Hurtado DO documented in this encounter [facility] 09-06-2024 History of Present illness Narrative Headache/epigastric pain/blurry vision/swelling? No Cramping/contractions? No Abnormal vaginal discharge? No Spotting/vaginal bleeding? No Loss or gush of fluid like your water may have broken? No Do you have cats at home? No Do you change the litter box (reason: risk of toxoplasmosis)? N/a Genetic testing done this here or other office? low risk/ female Have you been seen here at [facility] in a previous ? No Recent ER visits or hospitalizations? No Bring blood sugar log or meter with you today? (Please bring them with you for every visit at [facility]) n/a Flu vaccine (Jun-October)? No Any concerns that you would like me to mention to the provider today? No REASON FOR CONSULTATION: AMA, IVF HISTORY OF PRESENT ILLNESS: Fartun Hall is a pleasant 39 y.o. at 21w6d due on Estimated Date of Delivery: 01/11/25. complicated by: AMA, status post low risk cell free IVF , fresh embryo transfer History of sleeve gastrectomy Low lying placenta, measuring 1.9cm from internal os Today, the patient is doing well. She denies headaches, vision changes, nausea, vomiting, right upper quadrant or epigastric pain, SOB or chest pain. She denies contractions, vaginal bleeding, leaking of fluid. She reports good movement. Aneuploidy screening: Low risk cell free for trisomy 13, 18, 21, monosomy X, triploidy and 22q11 Carrier screening: Baby Girl: Eryn I have reviewed the pertinent available patient records including but not limited to notes, labs and images. PAST OBSTETRICAL HISTORY: OB History Para Term AB Living 3 2 SAB IAB Ectopic Multiple Live Births 2 # Outcome Date GA Lbr Chris/2nd Weight Sex Type Anes PTL Lv 3 Current 2 2021 5w0d 1 2020 8w0d MEDICAL HISTORY: Past Medical History: Diagnosis Date Infertility associated with anovulation PCOS (polycystic ovarian syndrome) SURGICAL HISTORY: Past Surgical History: Procedure Laterality Date BARIATRIC SURGERY 2016 sleeve gastrectomy TONSILLECTOMY FAMILY/GENETIC HISTORY: Family History Problem Relation Age of Onset Diabetes Mother Diabetes Sister SOCIAL HISTORY: Social History Tobacco Use Smoking status: Never Smokeless tobacco: Never Substance Use Topics Alcohol use: Not Currently Drug use: Never ALLERGIES: No Known Allergies CURRENT MEDICATIONS: Current Outpatient Medications: ferrous [id number] C-folic acid (FOLTRIN) 110-0.5 mg capsule, Take 1 capsule by mouth every morning before breakfast., Disp: , Rfl: [id number] acid ( 19) 29 mg iron- 1 mg tablet,chewable, Chew 1 tablet and swallow in the morning., Disp: , Rfl: aspirin 81 mg, Take 1 tablet (81 mg total) by mouth in the morning., Disp: 30 tablet, Rfl: 6 omeprazole (PriLOSEC OTC) 20 mg EC tablet, Take 1 tablet (20 mg total) by mouth in the morning., Disp: 30 tablet, Rfl: 6 RECENT HOSPITALIZATION: none HABITS: Patient activity no restrictions, diet no restrictions REVIEW OF SYSTEMS: Head and Neck: Negative for any dizziness and headaches. Cardiovascular and Respiratory System: Denies any chest pain, shortness of breath, and coughing. Abdominal and System: Denies any abdominal pain, nausea, vomiting, vaginal bleeding, and vaginal discharge REVIEW OF TESTS AND ULTRASOUND REPORTS: Referral records and epic chart were reviewed Pertinent Ultrasound findings are see formal ultrasound report. PHYSICAL EXAMINATION: Wt 77.1 kg (170 lb) Well-appearing in no distress. Respirations not labored, speaking comfortably in full sentences Gravid abdomen IMAGING No image results found. OVERALL ASSESSMENT -Fartun Hall is a pleasant 39 y.o. at 21w6d -AMA -IVF -history of sleeve gastrectomy -low-lying placenta COUNSELING Advanced maternal age I discussed with the patient the risks of advanced maternal age as it relates to chromosomal abnormalities. She had sonographic evaluation today and her ultrasound showed no anomalies or soft markers for aneuploidy. I explained that ultrasound is not diagnostic of chromosomal abnormalities and that 50% of babies with Trisomy 21 will have normal ultrasounds. She has had low risk cell free DNA screening. Although cell-free DNA is not a diagnostic test , it has high sensitivity and specificity for the most common aneuploidies. A negative cell free DNA does not ensure an unaffected . Limitations of cell free DNA screening were reviewed with the patient. Cell free DNA does not replace the accuracy and diagnostic precision of amniocentesis which remains an option for all women. We discussed the option of amniocentesis for definitive genetic testing. I discussed complications of invasive testing, including a 1 in 900 risk for labor, rupture of membranes, infection or bleeding that may lead to pre-viable or delivery. The patient declined amniocentesis. In addition to an increased risk for chromosomal abnormalities, women with advanced maternal age are also at higher risk for spontaneous abortions, gestational diabetes, hypertensive disorders in including preeclampsia, indicated delivery, as well as growth abnormalities, and stillbirth. IVF In a systematic review, pregnancies achieved with IVF or ICSI are associated with higher rates of total congenital heart disease that in those pregnancies occurring naturally (1.3% vs 0.7%). [facility] suggest that echocardiogram be offered to patients with pregnancies achieved with either IVF or ICSI. In addition, assessment of growth should be performed in the 3rd trimester for pregnancies with IVF. Low-dose aspirin for patients with pregnancies with IVF for attempted preeclampsia prophylaxis is not recommended unless there are additional risk factors. Due to the increased risk of stillbirth, weekly surveillance beginning 36 weeks' gestation is recommended. Bariatric Surgery, sleeve gastrectomy S/p Bariatric surgery It is advisable to delay for 12 to 24 month after bariatric surgery to accommodate the rapid weight loss and allow attainment of goal weight. Sleeve gastrectomy resect the greater curvature of the stomach including the fundus. It promote rapid gastric emptying, accelerated transient of nutrients into duodenum and proximal tested and fairly changes the microbiome. Complications associated with following bariatric surgery include but not limited to bowel obstruction, Band slippage, gastric ulcers and staple line strictures. Micronutrient supplementation may include Vitamins B1, B6, B12, D, and K, zinc, biotin, iron and calcium citrate. Patient can tolerate a sugars off drank, thus normal 50 g glucose challenge test is reasonable at 24-28 weeks' gestation. Additional recommendations for woman status post bariatric surgery include a nutrition consult (if not already placed), surveillance for adequate maternal weight gain during , serial growth ultrasounds. Due to micronutrient deficiencies, initial evaluation for micronutrient deficiencies includes laboratory workup of CBC, thiamine, vitamin B12, ferritin, iron, folate, vitamin-D and calcium. In each trimester follow-up with routine routine laboratory workup CBC, ferritin, B12, calcium and vitamin-D is recommended. Vitamin B1 deficiency is associated with neurological deficits, that are prominent if left untreated. The most common manifestation vitamin B1 deficiency in post bariatric bypass surgical patients is Wernicke encephalopathy (encephalopathy, ocular motor dysfunction, and gait ataxia). Patients are recommended 50 mg of thiamine once to twice daily following bariatric surgery. Vitamin B12 deficiency results in pernicious anemia. Chronic vitamin B12 deficiency can also result in peripheral neuropathy, which may not be reversible. Typically the body has 12-18 months storage of vitamin B12, thus vitamin B12 deficiencies commonly identified 2 years following bariatric surgery. Baby aspirin for the attempted prevention of preeclampsia is recommended. NSAIDs are known to increase the risk of developing marginal as ulcer following laparoscopic Alberto-en-Y gastric bypass surgery. However a retrospective cohort study evaluating the risk of low-dose daily aspirin at 81 mg did not show an increased risk of marginal ulceration (8.3% aspirin vs 10.3% no aspirin, p=0.45) (PMBID: [id number]). Given well-established benefits baby aspirin for the prevention of preeclampsia, I recommend initiating baby aspirin even in the setting of history of Alberto-en-Y surgery. PPI prophylaxis is additionally recommended by bariatric surgeons, 20 mg daily ordered today in addition to aspirin 81 mg daily. Micronutrient Dosing Recommendations: Calcium: recommend 1000-1200mg daily; if deficient, recommend 1800-69497 mg PO daily in divided doses Vitamin D: recommend 800IU during and ; if deficient, recommend 3000-6000IU of D3 daily Vitamin B1: recommend 50mg daily; if deficient, recommend 100-250mg monthly IM injects or 100mg TID PO until symptoms resolve Vitamin B12: recommend 35-100mcg daily PO; if deficient, recommend 1000mcg daily PO until level normalize Folate: recommend 800mcg-1000mcg daily PO (do not exceed 1mg daily); if deficient, recommend 1000mcg daily PO until levels normalize Iron: recommend 45-60mg of elemental iron daily from all sources; if deficient, recommend 150-300mg PO BID to TID OR IV iron Low lying placenta The placenta is currently low-lying (edge located 1.9 cm from the internal cervical os). The patient is aware that a will be indicated if the placenta remains in this location, but it will almost certainly resolve as the gestation progresses. We have scheduled her to return in 11 weeks to reevaluate the placental location. Please contact us with any questions or concerns that arise prior to that time. SUMMARY/RECOMMENDATION: Status post low risk cell free DNA, declined amniocentesis Baby aspirin initiated for preeclampsia prevention along with omeprazole 20 mg daily in the setting of history of bariatric surgery Incomplete level 2 anatomy ultrasound, attempt completion in 4-6 weeks at [facility] Repeat growth ultrasound along with transvaginal ultrasound to re-evaluate placental location in 11 weeks at 32 weeks gestation, through [facility] Repeat growth ultrasound at 36-37 weeks gestation with primary OB Evaluation for micronutrient deficiencies at first visit: CBC, thiamine (vitamin B1), vitamin B12, folate, ferritin ironvitamin D and calcium, through primary OB Continue evaluation for micronutrient deficiencies every trimester: CBC, ferritin, B12, calcium and Vitamin D, through primary OB Patient can tolerate a sugar drank, proceed with 50 g GCT at 24-28 week GA Surveillance for adequate maternal gestational weight gain Monitor for signs of preeclampsia, preeclampsia precautions reviewed with patient Recommend weekly testing starting at 36 weeks gestation, through primary OB, given advanced maternal age and IVF Recommend delivery at 39 weeks gestation or sooner if clinically indicated Vaginal delivery is anticipated pending resolution of low-lying placenta, reserve for usual obstetrical indications DISPOSITION: At this point the patient is in complete care of her cancer registrar. Patient does have ultrasound scheduled with us. Thank you for allowing me to participate in the care of Fartun Hall. If there any questions please do not hesitate to contact us. Ermelinda Nichols MD Maternal- Medicine [facility] [address] [place] [id number] [facility], the CDC, and other organizations representing maternal and public health professionals recommend that , , and lactating people and those considering receive the COVID-19 vaccination. Vaccination is the best method to reduce maternal and complications of SARS-CoV-2 infection. This document was created with [employer] technology. Though I make every effort to review the dictation as it is transcribed, on occasion the spoken word can be misinterpreted by the technology leading to inappropriate words, phrases, or sentences. This note is addressed to the requesting provider as a consultation for clinical guidance. Specific medical abbreviations are occasionally used and those are generally approved by the [place]?Board of?Obstetrics and?Gynecology?as well as?Ruth ware abbreviations. The above plan of care was based solely on the diagnoses for which a consultation was requested. ?More frequent testing may be indicated based on her other medical/obstetrical conditions. The management of other or medical conditions is beyond the scope of requested consultation and will continue to be followed by the primary cancer registrar or primary care provider. Note to patient: The Century Cures Act makes medical notes like these available to patients in the interest of transparency. However, be advised this is a medical document. It is intended as peer to peer communication. It is written in medical language and may contain abbreviations or verbiage that are unfamiliar. It may appear blunt or direct. Medical documents are intended to carry relevant information, facts as evident, and the clinical opinion of the practitioner. documented in this encounter [facility] 09-04-2024 History of Present illness Narrative Reason for Appointment: Patient ID: Fartun Hall is a 39 y.o. female who presents for Routine Visit Patient presents today for Return OB appointment. MEDICATIONS Current Outpatient Medications Medication Instructions cyanocobalamin (VITAMIN B-12) 100 mcg, Daily fluticasone (Flonase Allergy Relief) 50 MCG/ACT nasal spray 1 spray, Each Nostril, Daily, Shake gently. Before first use, prime pump. After use, clean tip and replace cap. folic acid (FOLVITE) 1 mg, Daily multivitamin [...] Constitutional: Appearance: Normal appearance. She is well-developed. Cardiovascular: Rate and Rhythm: Normal rate and [...] nursing note reviewed. Exam conducted with a ferryboat helper present. Vitals: Estimated body mass index is 28.8 kg/m as calculated from the following: Height as of 11/21/22: 5' 4 . Weight as of this encounter: 167 lb 12.8 oz. BP: 100/64 No LMP recorded. Patient is . ASSESSMENT & PLAN ICD-10-CM 1. Second trimester Z34.92 POCT urinalysis dipstick manually resulted 2. 21 weeks gestation of Z3A.21 POCT urinalysis dipstick manually resulted Patient presents today for a routine obstetrics appointment. Patient is currently 21w3d with a Estimated Date of Delivery: 01/12/25. Pt having anatomy scan at [facility] on Monday. Pt has complaints of dry itchy ears. Drops called into pharmacy. Pt to return in 4 weeks for scheduled OB appt. Documented by Patricia Carter LPN on behalf of: Fermín Hurtado DO documented in this encounter [facility] 07-31-2024 History of Present illness Narrative Reason for Appointment: Patient ID: [...] nursing note reviewed. Exam conducted with a ferryboat helper present. Vitals: Estimated body mass index is [...] by Patricia Carter LPN on behalf of: Fermín Hurtado DO documented in this encounter [facility] 07-04-2024 History of Present illness Narrative Reason for Appointment: Patient ID: [...] or undercooked meat, and stay away from [facility] health system. Patient has also been advised to not [...] Shannon Farr LPN documented in this encounter [facility] 05-31-2023 Evaluation note Encounter Date Diagnosis Assessment Notes May, Dandruff in adult (ICD-10 - L21.0) Trial of medicated shampoo. Call if no improvement. 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 Will add drop with steroid component. Discussed proper hearing protection - possibly ear muff style. Also discussed ENT referral if needed. [facility] Other 10-16-2022 Evaluation note* Encounter Date Diagnosis Assessment Notes Treatment Notes Treatment Clinical Notes May, Acute otitis externa of left [...] water inside ear after shower may use chair frame builder on lowest cool setting to blow dry. Follow up with PCP or UC if no improvement in the next 2-3 days. Immediate eval for severe ear pain, severe headache, neck pain/stiffness, pain, erythema, or swelling behind the ear, fever, N/V, hearing loss, fever, or any other new or concerning symptoms. Patient verbalizes understanding and is agreeable to treatment plan [facility] Other Evaluation note* Diagnosis Missed menses , unspecified gestational age Encounter for supervision of normal first in first trimester documented in this encounter [facility] Healthcare[facility]* Diagnosis 16 weeks gestation of Second trimester state, incidental Well woman exam with routine gynecological exam Routine gynecological examination Screening, , for anatomic survey Encounter for anatomic survey Exposure to STD Vaginal discharge Leukorrhea, not specified as infective Ear infection Unspecified otitis media documented in this encounter [facility] HealthcareEvaluation note* Diagnosis Second trimester state, incidental 21 weeks gestation of documented in this encounter [facility] HealthcareEvaluation note* Diagnosis resulting from assisted reproductive technology, second trimester- Primary 21 weeks gestation of History of bariatric surgery Bariatric surgery status Advanced maternal age, 1st , second trimester Low lying placenta nos or without hemorrhage, second trimester [facility]* Diagnosis resulting from assisted reproductive technology, second trimester- Primary Low lying placenta nos or without hemorrhage, second trimester Advanced maternal age in multigravida, second trimester [facility]* Diagnosis Diabetes mellitus screening Screening for diabetes mellitus 25 weeks gestation of Second trimester state, incidental History of bariatric surgery Bariatric surgery status resulting from in vitro fertilization, antepartum documented [facility]* Diagnosis History of bariatric surgery Bariatric surgery status [facility]* Diagnosis Third trimester state, incidental 29 weeks gestation of documented in this encounter [facility] general Narrative - Reported* Type Description Date Medical History Infertility, female Medical History PCOS [...] REPIAR 2017 Hospitalization History SEE SURGICAL HX [facility] Other InstructionsNot on filedocumented in this encounter [facility] System[facility]ructionsNot on filedocumented in this encounter [facility] SystemInstructionsNot on filedocumented in this encounter [facility] Summary Purpose Family History No Family History [...] section and content) DATE CREATED AUTHOR 02/19/2018 [facility] DATE CREATED AUTHOR AUTHOR'S ORGANIZ ATION 11/14/2018 [facility] Healthcare DATE CREATED AUTHOR AUTHOR'S ORGANIZ ATION 09/17/2020 [facility] DATE CREATED AUTHOR AUTHOR'S ORGANIZ ATION 12/23/2020 [facility] DATE CREATED AUTHOR AUTHOR'S ORGANIZ ATION 10/21/2021 [facility] DATE CREATED AUTHOR AUTHOR'S ORGANIZ ATION 02/03/2023 [facility] DATE CREATED AUTHOR AUTHOR'S ORGANIZ ATION 09/11/2024 [facility] DATE CREATED AUTHOR AUTHOR'S ORGANIZ ATION 10/10/2024 [facility] DATE CREATED AUTHOR AUTHOR'S ORGANIZ ATION 10/30/2024 [facility] dical Specialists EPIC REASON FOR VISIT (unrecogniz ed section and content) Reason Comments Amenorrhea Reason Comments Routine Visit Reason Comments ama Fertility Preservation Reason Comments Med Change Request Care Teams (unrecognized sec tion and content) Medical Records Assistant Relationship Specialty Start Date End Date Luisa Ge APRN-CREATIVE SERVICES COORDINATOR [address] [address] [employer] Pulmonary Medicine 06/02/20 Jamie Hardin MD [address] [address] Physician General Surgery 06/02/20 Page Faulkner M.Ed., R.D., L.D. [address] [address] Dietitian Nutrition 06/02/20 Rita Catherine MD [address] [place] [address] Physician Obstetrics/Gynecology 06/02/20 Rishabh Hi, SPINE SPECIALIST-CREATIVE SERVICES COORDINATOR [address] [address] [employer] Anesthesiology 06/02/20 Medical Records Assistant Relationship Specialty Start Date End Date Luisa Ge APRN-CREATIVE SERVICES COORDINATOR [address] [address] [employer] Pulmonary Medicine 06/02/20 Jamie Hardin MD [address] [address] Physician General Surgery 06/02/20 Page Faulkner M.Ed., R.Keyana., L.D. [facility] [address] [place] [address] Dietitian Nutrition 06/02/20 Rita Catherine MD [address] [place] [address] Physician Obstetrics/Gynecology 06/02/20 Rishabh Hi, SPINE SPECIALIST-CREATIVE SERVICES COORDINATOR [address] [place] [address] [employer] Anesthesiology 06/02/20 Medical Records Assistant Relationship Specialty Start Date End Date Everett Oliveros MD [address] [place] [phone] PCP - General Family Medicine 03/29/23 Medical Records Assistant Relationship Specialty Start Date End Date Everett Oliveros MD [address] [facility] [place] [phone] PCP - General Family Medicine 03/29/23 Medical Records Assistant Relationship Specialty Start Date End Date Everett Oliveros MD [address] [place] [phone] PCP - General Family Medicine 03/29/23 Medical Records Assistant Relationship Specialty Start Date End Date Everett Oliveros MD [address] [facility] [place] [phone] PCP - General Family Medicine 03/29/23 Medical Records Assistant Relationship Specialty Start Date End Date Everett Oliveros MD [address] [facility] [place] [address] PCP - General Family Medicine 03/29/23 Medical Records Assistant Relationship Specialty Start Date End Date Everett Oliveros MD [address] [facility] [place] [phone] PCP - General Family Medicine 03/29/23 Medical Records Assistant Relationship Specialty Start Date End Date Everett Oliveros MD [address] [facility] [place] [phone] PCP - General Family Medicine 03/29/23 Medical Records Assistant Relationship Specialty Start Date End Date Everett Oliveros MD [address] [facility] [place] [phone] PCP - General Family Medicine 03/29/23 Medical Records Assistant Relationship Specialty Start Date End Date Everett Oliveros MD [address] [facility] [place] [phone] PCP - General Family Medicine 03/29/23 Medical Records Assistant Relationship Specialty Start Date End Date Everett Oliveros MD [address] [facility] [place] [phone] PCP - General Family Medicine 03/29/23 FOR [...] BE BASED ON THE PRIMARY CLINICAL RECORDS. [facility] [facility]. provides no warranty or guarantee of the accuracy or completeness of information in this document.
--- NOTE | 2024-11-13 10:59 | US_ITS ---
[address] [address] Patient Name: FARTUN HALL MRN: [id number] date: 1985 Sex: F Assigned Patient Location: [facility] [place] [facility] [place]ion/Order Number: [id number] Exam Date: 11/13/2024 11:43 Report Date: 11/13/2024 11:45 At the request of: ANA PAULA JOHN DO Procedure: US OB BPP w non-stress Biophysical profile. Reason for exam: Advanced maternal age. History of bariatric surgery. COMPARISON: None. TECHNIQUE: Transabdominal imaging of the gravid uterus was obtained. FINDINGS: Process Improvement Manager reports a BPP of 8 out of 8. CYNTHIA is normal at 10.2 cm. heart rate 136 bpm. US/US OB BPP w non-stress IMPRESSION: BPP 8 out of 8. Impression dictated by: Corey Fregoso Jr., D.O.11/13/2024 11:45 AM [facility]ictation [facility] Electronically authenticated by: [id number] Y Date: 11/13/2024 11:45
[2024-11-13 12:06] VITALS: BP 97/67; PULSE 80
--- NOTE | 2024-11-13 12:11 | US_ITS ---
The [address] [address] Patient Name: FARTUN HALL MRN: [id number] date: 1985 Sex: F Assigned Patient Location: Current Patient Location: Accession/Order Number: [id number] Exam Date: 11/13/2024 13:18 Report Date: 11/13/2024 13:21 At the request of: ANA PAULA JOHN DO Procedure: US OB growth Growth ultrasound. Reason for exam: Advanced maternal age. COMPARISON: None. TECHNIQUE: Transabdominal imaging of the gravid uterus was obtained. FINDINGS: Single live intrauterine 21 weeks 6 days by anatomic measurements. Please note that the head circumference is less than 3rd percentile. Please note that abdominal circumference is at the 10 percentile. Femur length is less than 3rd percentile. Estimated weight is 1496 g. heart rate 128 bpm. US/US OB growth IMPRESSION: Single live intrauterine 29 weeks 6 days by anatomic measurements. Low percentiles involving head circumference, abdominal circumference and femur length. Symmetric IUGR cannot BE excluded. Impression dictated by: Corey Fregoso Jr., D.O.11/13/2024 1:21 PM Dictation Location: [facility] Electronically authenticated by: [id number] Y Date: 11/13/2024 13:21
== END 2024-11-13 12:48 | disposition home or self-care (01) ==
LOC: US 10:53 → FBC 10:59
PROVIDERS: PCP Family Medicine; Visit Provider Obstetrics & Gynecology
DX: O09.523 Supervision of elderly multigravida, third trimester (principal); O09.819 Supervision of pregnancy resulting from assisted reproductive technology, unspecified trimester; Z98.84 Bariatric surgery status; Z3A.31 31 weeks gestation of pregnancy
CPT/HCPCS: 76816; 76818

== ENCOUNTER 2024-11-16 11:01 | Outpatient (OUT) | payer BC, SELFPAY ==
--- OUTSIDE RECORDS SUMMARY | 2024-11-16 11:04 | XMS_ITS | CCD ---
Author Organization [facility] Care Team Providers Care Commercial Title Examiner Name Role Phone No Family Physician Unavailable Unavailable No Family Physician Unavailable Unavailable NO FAMILY DOCTOR, NO FAMILY DOCTOR Primary Care Unavailable YANIRA MARTINO Attending Unavailable Swathi DANIEL Referring Unavailab le PROVIDER, UNKNOWN Attending Unavailable PROVIDER, UNKNOWN Admitting Unavailable WILSON CASTRO Primary Care Unavailable Yolis James Unavailable Joo PACKER, Luisa Unavailable [phone] Lashawn MESSER, Jamie Unavailable Kaushik West, R.Keyana., L.D., Page Unavailable Florin MESSER, Rita Unavailable Sussy PACKER, Rishabh NAlexia Unavailable [phone] Everett Oliveros Unavailable Joo PACKER, Luisa Unavailable Lashawn MESSER, Jamie Unavailable [phone] Kaushik West, R.Keyana., L.D., Page Unavailable Florin MESSER, Rita Unavailable Sussy PACKER, Rishabh N. Unavailable BRYANT ., DR GOSS Attending Unavailable BRYANT ., DR GOSS Admitting Unavailable ARLIN, DR EVERETT Corey Primary Care Unavailable BRYANT ., DR GOSS Consulting Unavailable REQUEST, DR GARAY LISTED Primary Care Unavaila ble BRYANT ., DR GOSS Attending Unavailable FALMOUTH, DR YANIRA Steele Consulting Unavailable BRYANT ., [...] DR GOSS Consulting Unavailable Arlin MESSER, Everett [facility] Provider Unavailable Primary Care Provider Unavailabl e BRYANT, FERMÍN R Referring Unavailable PHUC ERMELINDA Attending Unavailable BRYANT, FERMÍN R Referring Unavailable BRYANT, FERMÍN R Referring Unavailable BRYANT, FERMÍN Attending Unavailable BRYANT, FERMÍN Attending Unavailable FERMÍN HURTADO Attending Unavailable FERMÍN HURTADO Attending Unavailable FERMÍN HURTADO Attending Unavailable Allergies Allergy Classification Reported Allergen(s) Allergy Type Date of Onset Reaction(s) Facility (3 sources) SEASONAL IC; Translations: [SEASONAL IC] Propensity to adverse reactions to drug (disorder) 9 [facility] [employer] [facility] Medications Current Medications Medication Drug [...] by mouth once daily before breakfast ferrous [id number] c C-folic acid (FOLTRIN) 110-0.5 mg capsule Take 1 capsule by mouth every morning before breakfast. Active aspirin 81 mg delayed release oral tablet (10 sources) Platelet Aggregation Inhibitor, Nonsteroidal Anti-inflammatory Drug Start: 09-06-2024 take 1 tablet by mouth in the morning aspirin 81 mg Indications: 21 weeks gestation of , History of bariatric surgery , resulting from assisted reproductive technology, second trimester , Advanced maternal age, 1st , second trimester Take 1 tablet (81 mg total) by mouth in the morning. 30 tablet 6 09/06/2024 Active azithromycin 250 mg oral tablet (1 source) Macrolide Antimicrobial Start: 11-12-2024 azithromycin (Zithromax Z-Adán) 250 MG tablet Indications: Upper respiratory tract infection, unspecified type As directed 6 tablet 11/12/2024 Active cholecalciferol 0.05 mg oral tablet (2 sources) Vitamin D Start: 10-29-2018 take 1 tablet by mouth once daily Cholecalciferol (VITAMIN D3) 2000 units TABS Take 1 Tablet by mouth daily. 30 Tablet 11 10/29/2018 Active condoms (2 sources) Start: 06-18-2019 condoms use during sex to prevent and/or sexually transmitted diseases 1 Package 11 06/18/2019 Active Continuous Glucose Dope Weigh Operator (Dexcom G6 projection technician) device (5 sources) Start: 10-09-2024 Continuous Glucose Dope Weigh Operator (Dexcom G6 projection technician) device Indications: Diabetes mellitus screening , History of bariatric surgery Use as instructed 1 each 10/09/2024 Active Continuous Glucose Dope Weigh Operator (FreeStyle Emmy 3 Arthur) device (3 sources) Start: 10-03-2024 End: 10-17-2024 Continuous Glucose Dope Weigh Operator (FreeStyle Emmy 3 Arthur) device Indications: Diabetes mellitus screening , History [...] Continuous Glucose Transmitter (Dexcom G6 transmitter) misc (4 sources) Start: 10-11-2024 Continuous Glucose Transmitter (Dexcom [...] Active folic acid 1 mg oral tablet (19 sources) take 1 tablet by mouth once daily folic acid (Folvite) 1 MG tablet Take 1 mg by mouth Daily Active humidifier (2 sources) Start: 09-21-2018 humidifier Dispense humidifier covered by insurance to use as directed 1 Each 0 09/21/2018 Active hydrocortisone 10 mg/ml / neomycin 3.5 mg/ml / polymyxin b 20732 unt/ml otic solution (1 source) Aminoglycoside Antibacterial, [...] tablet 08/06/2024 08/13/2024 Active multivitamin (Theragran) tablet (19 sources) take 1 tablet by mouth once daily multivitamin (Theragran) tablet Take 1 tablet by mouth Daily Active Multivitamin preparation (1 source) Multivitamin Act jonatohn ofloxacin 3 mg/ml otic solution (2 sources) Quinolone Antimicrobial Start: 06-12-2022 Ofloxacin 0.3 % 10 drops into affected ear Otic Once a day for 7 day(s) May, Active Start: 06-12-2022 Ofloxacin 0.3 % 10 drops into affected ear Otic Once a day for 7 day(s) May, Not-Taking omeprazole 20 mg delayed release oral capsule (13 sources) Proton Pump Inhibitor Start: 10-28-2024 take 1 capsule by mouth in the morning omeprazole (PriLOSEC) 20 mg capsule Indications: History of bariatric surgery TAKE 1 CAPSULE BY MOUTH IN THE MORNING 90 capsule 3 10/28/2024 Active Start: 09-06-2024 take 1 capsule by mo uth once daily omeprazole (PriLOSEC) [address] [...] Start: 05-30-2019 take 1 capsule by mo uth once daily omeprazole (PRILOSEC) 40 MG capsule [...] 05/30/2019 Active MV-Min-Fe Fum-FA-DHA ( 1 PO) (19 sources) MV-Min- Fe Fum-FA-DHA ( 1 PO) Take 1 each by mouth Daily Active [id number] acid ( 19) 29 mg iron- 1 mg tablet,chewable (3 sources) [id number] acid ( 19) 29 mg iron- 1 [...] second trimester] 09-06-2024 Episodic Other complications of (4 sources) Multigravida of advanced maternal age; Translations: [Supervision of elderly multigravida, second trimester] 09-09-2024 Episodic Other complications of (1 source) Supervision of elderly primigravida, second trimester; Translations: [Supervision of elderly primigravida, second trimester] Onset: 09-06-2024 Episodic Other complications of (2 sources) Supervision of elderly multigravida, second trimester; Translations: [Supervision of elderly multigravida, second trimester] Onset: 09-06-2024 Episodic Other complications of (3 sources) Decreased fertility; Translations: [Supervision of resulting [...] [Bariatric surgery status] Episodic Other gastrointestinal disorders (5 sources) History of bariatric surgical procedure; Translations: [...] adiposity] Chronic Other and delivery including normal (15 sources) Encounter for test, result positive; Translations: [] Onset: 01-17-2023 Episodic Other screening for suspected conditions (not mental disorders or infectious disease) (9 sources) Encounter for screening for malignant neoplasm of cervix; Translations: [Patient encounter status] Onset: 11-21-2022 Episodic Other upper respiratory disease (2 sources) Chronic rhinitis; Translations: [Chronic rhinitis] Onset: 09-22-2018 09-22-2018 Chronic Other upper respiratory infections (1 source) Upper respiratory infection; Translations: [Acute upper respiratory infection, unspecified] 11-12-2024 Episodic Otitis media and related conditions (2 sources) [...] [29 weeks gestation of ] 10-29-2024 Episodic Residual codes; unclassified (1 source) Gestation period, 31 weeks; Translations: [31 weeks gestation of ] 11-12-2024 Episodic Unclassified (1 source) Unknown / UNK(Unknown) Onset: 09-21-2017 Unclassified (3 sources) Diarrhea, unspecified; Translations: [Diarrhea, unspecified] Onset: 11-07-2018 Unclassified (12 sources) OB Reminders Onset: 08-08-2024 08-08-2024 Unclassified [...] Range Facility Urinalysis macro (dipstick) panel (U)on 11-12-2024 Bilirubin, UA Positive Negative - 4(70) +++ mg/dL [facility] Comment on above: small Blood, UA Negative Negative - 50 Nnamdi/mcL [facility] Clarity, UA Clear [facility] Color, UA Yellow [facility] Glucose, UA Negative Negative - 1999(110) ++++ mg/dL [facility] Interpretation and review of laboratory results Abnormal [facility] Ketones, UA Positive Negative - 160(16) ++++ mg/dL [facility] Comment on above: 15mg/dL Leukocytes, UA Negative Negative - 500+++ Dilcia/mcL [facility] Nitrite, UA Negative Negative - Positive [facility] pH, UA 6 5 - 9 [facility] Protein, UA Positive Negative - 1999(20) ++++ mg/dL [facility] Comment on above: 30mg/dL Spec Grav, UA 1.025 1 - 1.03 [facility] Urobilinogen, UA 1.0 0.2 - 12 mg/dL [facility] Urinalysis macro (dipstick) panel (U)on 10-29-2024 Bilirubin, UA Negative Negative - 4(70) +++ mg/dL [facility] Blood, UA Negative Negative - 50 Nnamdi/mcL [facility] Clarity, UA Clear [facility] Color, UA Yellow [facility] Glucose, UA Negative Negative - 1999(110) ++++ mg/dL [facility] Interpretation and review of laboratory results Abnormal [facility] Ketones, UA Negative Negative - 160(16) ++++ mg/dL [facility] Leukocytes, UA Negative Negative - 500+++ Dilcia/mcL [facility] Nitrite, UA Negative Negative - Positive [facility] pH, UA 7 5 - 9 [facility] Protein, UA Trace Negative - 1999(20) ++++ mg/dL [facility] Spec Grav, UA 1.025 1 - 1.03 [facility] Urobilinogen, UA 4.0 0.2 - 12 mg/dL [facility] ALL CBC WITH AUTO DIFFon BASOPHILS ABSOLUTE AUTO 0.1 [facility] Basophils/100 WBC (Bld) 0.6 % 0.2 - 2.0 % [facility] Eosinophils/100 WBC (Bld) 3.2 % 0.9 - 7.0 % [facility] Erythrocyte distribution width (RBC) [Ratio] 13.1 % 11.0 - 15.0 % [facility] Hematocrit (Bld) [Volume fraction] 34.1 % Low 36.0 - 48.0 % [facility] Hemoglobin (Bld) [Mass/Vol] 10.9 g/dL Low 12.0 - 16.0 g/dL [facility] IMMATURE GRANULOCYTES ABS AUTO 0.03 [facility] Immature granulocytes/100 WBC (Bld) 0.3 % 0.0 - 0.5 % [facility] Interpretation and review of laboratory results Abnormal [facility] LYMPHOCYTES ABSOLUTE AUTO 2.9 [facility] Lymphocytes/100 WBC (Bld) 27.6 % 20.5 - 60.0 % [facility] MCH (RBC) [Entitic mass] 26.5 pg Low 26.7 - 34.0 pg [facility] MCHC (RBC) [Mass/Vol] 32 g/dL 29.9 - 35.2 g/dL [facility] MCV (RBC) [Entitic vol] 82.8 fL 81.0 - 99.0 fL [facility] MONOCYTES ABSOLUTE AUTO 0.7 [facility] Monocytes/100 WBC (Bld) 6.3 % 1.7 - 12.0 % [facility] NEUTROPHILS ABSOLUTE AUTO 6.5 [facility] Neutrophils/100 WBC (Bld) 62 % 43.0 - 75.0 % [facility] Platelet mean volume (Bld) [Entitic vol] 11.6 fL 9.5 - 13.5 fL [facility] EO # 0.3 [facility] PLT 348 [facility] RBC 4.12 Low [facility] WBC 10.4 [facility] Urinalysis macro (dipstick) panel (U)on 10-03-2024 Bilirubin, UA Negative Negative - 4(70) +++ mg/dL [facility] Blood, UA Negative Negative - 50 Nnamdi/mcL [facility] Clarity, UA Clear [facility] Color, UA Yellow [facility] Glucose, UA Negative Negative - 1999(110) ++++ mg/dL [facility] Interpretation and review of laboratory results Abnormal [facility] Ketones, UA Negative Negative - 160(16) ++++ mg/dL [facility] Leukocytes, UA Negative Negative - 500+++ Dilcia/mcL [facility] Nitrite, UA Negative Negative - Positive [facility] pH, UA 6.5 5 - 9 [facility] Protein, UA Trace Negative - 1999(20) ++++ mg/dL [facility] Spec Grav, UA 1.025 1 - 1.03 [facility] Urobilinogen, UA 1.0 0.2 - 12 mg/dL [facility] Urinalysis macro (dipstick) panel (U)on 09-04-2024 Bilirubin, UA Negative Negative - 4(70) +++ mg/dL [facility] Blood, UA Negative Negative - 50 Nnamdi/mcL [facility] Clarity, UA Clear [facility] Color, UA Yellow [facility] Glucose, UA Negative Negative - 1999(110) ++++ mg/dL [facility] Interpretation and review of laboratory results Normal [facility] Ketones, UA Negative Negative - 160(16) ++++ mg/dL [facility] Leukocytes, UA Negative Negative - 500+++ Dilcia/mcL [facility] Nitrite, UA Negative Negative - Positive [facility] pH, UA 5.5 5 - 9 [facility] Protein, UA Negative Negative - 2000(20) ++++ mg/dL [facility] Spec Grav, UA 1.02 1 - 1.03 [facility] Urobilinogen, UA 1.0 0.2 - 12 mg/dL [facility] AFP, SERUM, OPEN SPINA BIFID Aon 08-11-2024 AFP MOM 1.01 . [facility] AFP VALUE 39.6 ng/mL . [facility] COMMENT: Comment . [facility] Comment on above: Hazel Dixon , Ph.D., [facility] Director References: Available Upon Request. Multiples Of Median Cutoffs For AFP Elevations Krishna 2.5 Black 2.8 IDD 2.0 Twins 4.5 Abbreviation Definitions IDD - Insulin Dep Diabetes OSBR - Open Spina Bifida Risk For further inquiries contact [facility] at [phone]. This test was developed and its performance characteristics determined by [employer]. It has not been cleared or approved by the Food and Drug Administration. Performed at: [facility] [address] [place], [place] [id number] Lead Sharepoint Developer: Mc Doshi [facility], Phone: [phone] GEST. AGE ON COLLECTION DATE 17.7 . weeks [facility] GESTAT. AGE BASED ON Ultrasound . [facility] Comment on above: 16.6 on 07/31/2024 Recalculations are not recommended when gestational dating by LMP and ultrasound are within 10 days. INSULIN DEP DIABETES No . [facility] INTERPRETATION Comment . [facility] Comment on above: Interpretation: Scre en Negative [...] Customer Services to discuss available options. The [employer] recommends amniocentesis be offered to women age 35 and older. [age] [facility] MULTIPLE GESTATION No . [facility] OSBR RISK [address] [place] [phone] . [facility] RACE . [facility] RESULTS Report . [facility] TEST RESULTS: Negative . [facility] WEIGHT 161 . lbs [facility] N N ULTRASOUND [id number] 4 16 N 1 Y 161 N N N N N White/ [facility] IGP,APTIMA HPV,AGE GDLNon AGE GDLN ACOG TESTING Note . [facility] Comment on above: TESTS RESULT FLAG UN ITS REF RANGE LAB Clinician Provided Cytology Information Source.............Cervix Other.............. No. of containers..01 ThinPrep Vial Age Algo ACOG Aniya... 30-65 01 FLAG LEGEND: L-Low Normal,H-High Normal,LL-Alert Low,HH-Alert High <-Panic Low,>-Panic High,A-Abnormal,AA-Critical Abnormal Performed at: 01 =G [facility] [id number] Dipti Hurtado MD, HPV APTIMA Negative Negative [facility] Comment on above: This nucleic acid am plification test detects fourteen high- risk HPV types (16,18,31,33,35,39,45,51,52,56,58,59,66,68) without differentiation. Performed at: =G [facility] [id number] Lead Sharepoint Developer: Dipti Hurtado MD, Phone: [phone] Performed at: - [facility] [id number] Lead Sharepoint Developer: Dipti Hurtado MD, Phone: [phone] IGP, APTIMA HPV, RFX 16/18,45 Note . [facility] Comment on above: TESTS RESULT FLAG UN ITS REF RANGE LAB DIAGNOSIS: 02 NEGATIVE FOR INTRAEPITHELIAL LESION OR MALIGNANCY. Specimen adequacy: 02 Satisfactory for evaluation. Endocervical and/or squamous metaplastic cells (endocervical component) are present. Performed by: 02 Adria Kincaid, Reconciliation Manager ([facility]) . 02 Note: Note 02 The Pap [...] <-Panic Low,>-Panic High,A-Abnormal,AA-Critical Abnormal Performed at: [address] [id number] Dipti Hurtado MD, SPATULA-ALONE CERVIX [facility] RECURRENT VAGINITIS (HTRX)on 08-03-2024 ATOPOBIUM VAGINAE 0 [facility] Healthcare ATOPOBIUM VAGINAE Not detected [facility] BVAB 2,3 (BACTERIAL VAGINOSIS ASSOCIATED BACTERIA 2, 3); MOBILUNCUS SPP 27.074 Abnormal [facility] BVAB 2,3 (BACTERIAL VAGINOSIS ASSOCIATED BACTERIA 2, 3); MOBILUNCUS SPP Detected Abnormal [facility] LULY ALBICANS, PARAPSILOSIS, TROPICALIS 0 [facility] LULY ALBICANS, PARAPSILOSIS, TROPICALIS Not detected [facility] LULY GLABRATA 0 [facility] LULY GLABRATA Not [facility] KRUSEI 0 [facility] LULY KRUSEI Not detected [facility] CHLAMYDIA TRACHOMATIS 0 [facility] CHLAMYDIA TRACHOMATIS Not detected N [facility] GARDNERELLA VAGINALIS 30.955 Abnormal [facility] S [facility] GARDNERELLA VAGINALIS Detected Abnormal [facility] Interpretation and review of laboratory results Abnormal [facility] MEGASPHAERA (TYPES 1, 2) 0 [facility] MEGASPHAERA (TYPES 1, 2) Not detected [facility] MYCOPLASMA GENITALIUM 0 [facility] S [facility] MYCOPLASMA GENITALIUM Not detected N S [facility] NEISSERIA GONORRHOEAE 0 [facility] NEISSERIA GONORRHOEAE Not detected N [facility] TET B, TET M 16.937 Abnormal [facility] TET B, TET M Detected Abnormal [facility] TRICHOMONAS VAGINALIS 0 [facility] TRICHOMONAS VAGINALIS Not detected N S Healthcare [facility] Healthcare Urinalysis macro (dipstick) panel (U)on 07-31-2024 Bilirubin, UA Negative Negative - 4(70) +++ mg/dL [facility] Blood, UA Negative Negative - 50 Nnamdi/mcL [facility] Clarity, UA Clear [facility] Color, UA Yellow [facility] Glucose, UA Negative Negative - 2000(110) ++++ mg/dL [facility] Interpretation and review of laboratory results Normal [facility] Ketones, UA Negative Negative - 160(16) ++++ mg/dL [facility] Leukocytes, UA Negative Negative - 500+++ Dilcia/mcL [facility] Nitrite, UA Negative Negative - Positive [facility] pH, UA 6 5 - 9 [facility] Protein, UA Negative Negative - 1999(20) ++++ mg/dL [facility] Spec Grav, UA 1.015 1 - 1.03 [facility] Urobilinogen, UA 1.0 0.2 - 12 mg/dL [facility] ALL CBC WITH AUTO DIFFon BASOPHILS ABSOLUTE AUTO 0.1 [facility] Basophils/100 WBC (Bld) 0.6 % 0.2 - 2.0 % [facility] Eosinophils/100 WBC (Bld) 3.7 % 0.9 - 7.0 % [facility] Erythrocyte distribution width (RBC) [Ratio] 13.1 % 11.0 - 15.0 % [facility] Hematocrit (Bld) [Volume fraction] 36.3 % 36.0 - 48.0 % [facility] Hemoglobin (Bld) [Mass/Vol] 11.7 g/dL Low 12.0 - 16.0 g/dL [facility] IMMATURE GRANULOCYTES ABS AUTO 0.03 [facility] Immature granulocytes/100 WBC (Bld) 0.3 % 0.0 - 0.5 % [facility] Interpretation and review of laboratory results Abnormal [facility] LYMPHOCYTES ABSOLUTE AUTO 3.1 [facility] Lymphocytes/100 WBC (Bld) 31.7 % 20.5 - 60.0 % [facility] MCH (RBC) [Entitic mass] 27.7 pg 26.7 - 34.0 pg [facility] MCHC (RBC) [Mass/Vol] 32.2 g/dL 29.9 - 35.2 g/dL [facility] MCV (RBC) [Entitic vol] 85.8 fL 81.0 - 99.0 fL [facility] MONOCYTES ABSOLUTE AUTO 0.6 [facility] Monocytes/100 WBC (Bld) 6.3 % 1.7 - 12.0 % [facility] NEUTROPHILS ABSOLUTE AUTO 5.6 [facility] Neutrophils/100 WBC (Bld) 57.4 % 43.0 - 75.0 % [facility] Platelet mean volume (Bld) [Entitic vol] 11.9 fL 9.5 - 13.5 fL [facility] EO # 0.4 [facility] TB PLT 306 [facility] TB RBC 4.23 [facility] WBC 9.8 [facility] HCG ( test) Ql (U)o n 07-04-2024 Interpretation and review of laboratory results Abnormal [facility] Preg Test, Ur Positive Negative [facility] Urinalysis macro (dipstick) panel (U)on 07-04-2024 Bilirubin, UA Negative Negative - 4(70) +++ mg/dL [facility] Blood, UA Positive Negative - 50 Nnamdi/mcL [facility] Comment on above: trace-intact Clarity, UA Clear [facility] Color, UA Yellow [facility] Glucose, UA Negative Negative - 1999(110) ++++ mg/dL [facility] Interpretation and review of laboratory results Abnormal [facility] Ketones, UA Negative Negative - 160(16) ++++ mg/dL [facility] Leukocytes, UA Negative Negative - 500+++ Dilcia/mcL [facility] Nitrite, UA Negative Negative - Positive [facility] pH, UA 6 5 - 9 [facility] Protein, UA Negative Negative - 1999(20) ++++ mg/dL [facility] Spec Grav, UA 1.03 1 - 1.03 [facility] Urobilinogen, UA 0.2 0.2 - 12 mg/dL [facility] PREG QUANT HCGon 01-17-2023 HCG QUANT <1 Normal [facility] Comment on above: Performed By: #### P REGQNT #### [facility] [address] [place] [address] Dr. Meghan Vital HCG RANGE SEE BELOW Normal [facility] Comment on above: Result Comment: 5-50 0.2-1 WEEK 50-500 1-2 WEEKS 100-5,000 2-3 WEEKS 500-10,000 3-4 WEEKS 1,000-50,000 4-5 WEEKS 10,000-100,000 5-6 WEEKS 15,000-200,000 6-8 WEEKS 10,000-100,000 2-3 MONTHS Performed By: #### P REGQNT #### [facility] [address] [address] [address] Meghan Vital PROGESTERONEon 01-10-2023 Progesterone 8.9 ng/mL Normal [facility] Comment on above: Result Comment: Foll icular phase 0.1 - 0.9 Luteal phase 1.8 - 23.9 Ovulation phase 0.1 - 12.0 First trimester 11.0 - 44.3 Second trimester 25.4 - 83.3 Third trimester 58.7 - 214.0 Postmenopausal 0.0 - 0.1 Performed By: #### H CGSUB #### [facility] [address] [place] [address] Dr. Meghan Vital PAP ACOG PANEL 2: 30 to 65on 11-30-2022 . . Normal [facility] Comment on above: Result Comment: Perf ormed at: WB Performed By: #### [id number] #### [facility] [address] [place] [address] Dr. Meghan Vital Age Gdln ACOG Testing - [facility] Comment on above: Performed By: #### [id number] #### [facility] [address] [place] [address] Dr. Meghan Vital DIAGNOSIS: Comment [facility] Comment on above: Result Comment: NEGA TIVE FOR INTRAEPITHELIAL LESION OR MALIGNANCY. Performed at: WB Performed By: #### [id number] #### [facility] [address] [place] [address] Dr. Meghan Vital HPV Aptima Positive Abnormal Negative [facility] Comment on above: Result Comment: This nucleic acid amplification test detects fourteen high-risk HPV types (16,18,31,33,35,39,45,51,52,56,58,59,66,68) without differentiation. Performed at: =G Performed By: #### [id number] #### [facility] [address] [place] [address] Dr. Meghan Vital HPV Genotype 16 Negative Normal Negative [facility] Comment on above: Performed By: #### [id number] #### [facility] [address] [place] [address] Dr. Meghan Vital HPV Genotype 18,45 Negative Normal Negative [facility] Comment on above: Performed By: #### [id number] #### [facility] [address] [place] [address] Dr. Meghan Vital HPV Genotype Reflex Comment Normal [facility] Comment on above: Result Comment: Aiyana iqbal, see HPV Genotype results. Performed at: WB Performed By: #### [id number] #### [facility] [address] [place] [address] Dr. Meghan Vital Methodology: Comment [facility] Comment on above: Result Comment: This liquid based ThinPrep(R) pap test was screened with the use of an image guided system. Performed at: WB Performed By: #### [id number] #### [facility] [address] [place] [address] Dr. Meghan Vital Note: Comment Normal [facility] Comment on above: Result Comment: The Pap smear is a screening test designed to aid in the detection of premalignant and malignant conditions of the uterine cervix. It is not a diagnostic procedure and should not be used as the sole means of detecting cervical cancer. Both false-positive and false-negative reports do occur. . Performed at: WB Performed By: #### [id number] #### [facility] [address] [place] [address] Dr. Meghan Vital Performed by: Comment Normal [facility] Comment on above: Result Comment: Rahul Kincaid, Reconciliation Manager (ASCP) Performed at: WB Performed By: #### [id number] #### [facility] [address] [place] [address] Dr. Meghan Vital Specimen adequacy: Comment [facility] Comment on above: Result Comment: Sati sfactory for evaluation. Endocervical and/or squamous metaplastic cells (endocervical component) are present. Performed at: WB Performed By: #### [id number] #### [facility] [address] [place] [address] Dr. Meghan Vital ANTI-MULLERIAN HORMONEon Anti-Mullerian Hormone (AMH) 3.03 ng/mL [facility] Comment on above: Result Comment: For assays employing antibodies, the possibility exists for interference by heterophile antibodies in the samples.1 1.Bailey Dickson Interferences in Immunoassays - still a threat. Clin. Chem. 2000; 46: 0675-8403. This test was developed and its performance characteristics determined by [employer]. It has not been cleared or approved by the Food and Drug Administration. Reference Range: Females 36 - 40y: 0.42 - 8.34 Median 1.69 AMH concentrations of >= 1.06 ng/mL is correlated with a better response to ovarian stimulation, produced more retrievable oocytes and higher odds of live according to Holland et al. Fertility and Sterility. 2010: 94:1532-5707. The current AMH test method correlates with [...] tumor. Performed By: #### H CGSUB #### [facility] [address] [place] [address] Dr. Meghan Vital CBC AUTO DIFFon 11-21-2022 BASO # 0.1 103/ul Normal 0.0-0.1 [facility] Comment on above: Performed By: #### H CGSUB #### [facility] [address] [place] [address] Dr. Meghan Vital Basophils/100 WBC (Bld) 0.8 % Normal 0.2-2.0 [facility] Comment on above: Performed By: #### H CGSUB #### [facility] [address] [place] [address] Dr. Meghan Vital EO # 0.2 103/ul Normal 0.0-0.7 [facility] Comment on above: Performed By: #### H CGSUB #### [facility] [address] [place] [address] Dr. Meghan Vital Eosinophils/100 WBC (Bld) 2.3 % Normal 0.9-7.0 [facility] Comment on above: Performed By: #### H CGSUB #### [facility] [address] [place] [address] Dr. Meghan Vital Erythrocyte distribution width (RBC) [Ratio] 13.3 % Normal 11.0-15.0 [facility] Comment on above: Performed By: #### H CGSUB #### [facility] [address] [place] [address] Dr. Meghan Vital Hematocrit (Bld) [Volume fraction] 42.4 % Normal 36.0-48.0 [facility] Comment on above: Performed By: #### H CGSUB #### [facility] [address] [place] [address] Dr. Meghan Vital Hemoglobin (Bld) [Mass/Vol] 13.6 g/dL Normal 12.0-16.0 [facility] Comment on above: Performed By: #### H CGSUB #### [facility] [address] [place] [address] Dr. Meghan Vital IG # 0.01 10e3/ul Normal 0.00-0.03 [facility] Comment on above: Performed By: #### H CGSUB #### [facility] [address] [place] [address] Dr. Meghan Vital IG % 0.1 % Normal 0.0-0.5 [facility] Comment on above: Performed By: #### H CGSUB #### [facility] [address] [place] [address] Dr. Meghan Vital LYMPH # 3.9 103/ul Critically high 1.2-3.8 [facility] Comment on above: Performed By: #### H CGSUB #### [facility] [address] [place] [address] Dr. Meghan Vital Lymphocytes/100 WBC (Bld) 42.7 % Normal 20.5-60.0 [facility] Comment on above: Performed By: #### H CGSUB #### [facility] [address] [place] [address] Dr. Meghan Vital MANUAL DIFF REQ NO Normal [facility] Comment on above: Performed By: #### H CGSUB #### [facility] [address] [place] [address] Dr. Meghan Vital MCH (RBC) [Entitic mass] 27.4 pg Normal 26.7-34.0 [facility] Comment on above: Performed By: #### H CGSUB #### [facility] [address] [place] [address] Dr. Meghan Vital MCHC (RBC) [Mass/Vol] 32.1 g/dL Normal 29.9-35.2 [facility] Comment on above: Performed By: #### H CGSUB #### [facility] [address] [place] [address] Dr. Meghan Vital MCV (RBC) [Entitic vol] 85.3 fL Normal 81.0-99.0 [facility] Comment on above: Performed By: #### H CGSUB #### [facility] [address] [place] [address] Dr. Meghan Vital MONO # 0.6 103/ul Normal 0.3-0.8 [facility] Comment on above: Performed By: #### H CGSUB #### [facility] [address] [place] [address] Dr. Meghan Vital Monocytes/100 WBC (Bld) 6.1 % Normal 1.7-12.0 [facility] Comment on above: Performed By: #### H CGSUB #### [facility] [address] [place] [address] Dr. Meghan Vital NEUT # 4.3 103/ul Normal 1.4-6.5 [facility] Comment on above: Performed By: #### H CGSUB #### [facility] [address] [place] [address] Dr. Meghan Vital Neutrophils/100 WBC (Bld) 48.0 % Normal 43.0-75.0 [facility] Comment on above: Performed By: #### H CGSUB #### [facility] [address] [place] [address] Dr. Meghan Vital Platelet mean volume (Bld) [Entitic vol] 11.5 fL Normal 9.5-13.5 [facility] Comment on above: Performed By: #### H CGSUB #### [facility] [address] [place] [address] Dr. Meghan Vital PLT 251 103/ul Normal 150-450 [facility] Comment on above: Performed By: #### H CGSUB #### [facility] [address] [place] [address] Dr. Meghan Vital RBC 4.97 106/ul Normal 4.20-5.40 [facility] Comment on above: Performed By: #### H CGSUB #### [facility] [address] [place] [address] Dr. Meghan Vital WBC 9.0 103/ul Normal 4.0-11.0 [facility] Comment on above: Performed By: #### H CGSUB #### [facility] [address] [place] [address] Dr. Meghan Vital FREE T4on 11-21-2022 Free T4 [Mass/Vol] 1.03 ng/dL Normal 0.76-1.46 [facility] Comment on above: Performed By: #### F T4 #### [facility] [address] [place] [address] Dr. Meghan Vital GLYCOHEMOGLOBIN A1Con 2022 ADA RECOMMENDATION SEE BELOW Normal [facility] Comment on above: Result Comment: ADA RECOMMENDED LIMIT 4.0 - 6.0 ADA THERAPEUTIC TARGET < 7.0 ACTION SUGGESTED > 7.0 Performed By: #### H CGSUB #### [facility] [address] [place] [address] Dr. Meghan Vital Glucose [Mass/Vol] 97 mg/dL Normal [facility] Comment on above: Performed By: #### H CGSUB #### [facility] [address] [place] [address] Dr. Meghan Vital HbA1c (Bld) [Mass fraction] 5.0 % Normal 4.5-6.2 [facility] Comment on above: Performed By: #### H CGSUB #### [facility] [address] [place] [address] Dr. Meghan Vital TSHon 11-21-2022 TSH 1.636 uIU/mL Normal 0.358-3.74 0 [facility] Comment on above: Performed By: #### H CGSUB #### [facility] [address] [place] [address] Dr. Meghan Vital PROGESTERONEon 10-12-2022 Progesterone 6.8 ng/mL Normal [facility] Comment on above: Result Comment: Foll icular phase 0.1 - 0.9 Luteal phase 1.8 - 23.9 Ovulation phase 0.1 - 12.0 First trimester 11.0 - 44.3 Second trimester 25.4 - 83.3 Third trimester 58.7 - 214.0 Postmenopausal 0.0 - 0.1 Performed By: #### H CGSUB #### [facility] [address] [place] [address] Dr. Meghan Vital CBC AUTO DIFFon 09-23-2022 BASO # 0.1 103/ul Normal 0.0-0.1 [facility] Comment on above: Performed By: #### C BC #### [facility] [address] [place] [address] Dr. Meghan Vital Basophils/100 WBC (Bld) 1.2 % Normal 0.2-2.0 [facility] Comment on above: Performed By: #### C BC #### [facility] [address] [place] [address] Dr. Meghan Vital EO # 0.2 103/ul Normal 0.0-0.7 [facility] Comment on above: Performed By: #### C BC #### [facility] [address] [place] [address] Dr. Meghan Vital Eosinophils/100 WBC (Bld) 2.4 % Normal 0.9-7.0 [facility] Comment on above: Performed By: #### C BC #### [facility] [address] [place] [address] Dr. Meghan Vital Erythrocyte distribution width (RBC) [Ratio] 13.1 % Normal 11.0-15.0 [facility] Comment on above: Performed By: #### C BC #### [facility] [address] [place] [address] Dr. Meghan Vital Hematocrit (Bld) [Volume fraction] 38.1 % Normal 36.0-48.0 [facility] Comment on above: Performed By: #### C BC #### [facility] [address] [place] [address] Dr. Meghan Vital Hemoglobin (Bld) [Mass/Vol] 13.4 g/dL Normal 12.0-16.0 [facility] Comment on above: Performed By: #### C BC #### [facility] [address] [place] [address] Dr. Meghan Vital IG # 0.01 10e3/ul Normal 0.00-0.03 [facility] Comment on above: Performed By: #### C BC #### [facility] [address] [place] [address] Dr. Meghan Vital IG % 0.1 % Normal 0.0-0.5 [facility] Comment on above: Performed By: #### C BC #### [facility] [address] [place] [address] Dr. Meghan Vital LYMPH # 3.4 103/ul Normal 1.2-3.8 [facility] Comment on above: Performed By: #### C BC #### [facility] [address] [place] [address] Dr. Meghan Vital Lymphocytes/100 WBC (Bld) 45.2 % Normal 20.5-60.0 [facility] Comment on above: Performed By: #### C BC #### [facility] [address] [place] [address] Dr. Meghan Vital MANUAL DIFF REQ NO Normal [facility] Comment on above: Performed By: #### C BC #### [facility] [address] [place] [address] Dr. Meghan Vital MCH (RBC) [Entitic mass] 27.8 pg Normal 26.7-34.0 [facility] Comment on above: Performed By: #### C BC #### [facility] [address] [place] [address] Dr. Meghan Vital MCHC (RBC) [Mass/Vol] 35.2 g/dL Normal 29.9-35.2 [facility] Comment on above: Performed By: #### C BC #### [facility] [address] [address] [address] Meghan Vital MCV (RBC) [Entitic vol] 79.0 fL Critically low 81.0-99.0 [facility] Comment on above: Performed By: #### C BC #### [facility] [address] [address] [address] Meghan Vital MONO # 0.4 103/ul Normal 0.3-0.8 [facility] Comment on above: Performed By: #### C BC #### [facility] [address] [address] [address] Meghan Vital Monocytes/100 WBC (Bld) 5.3 % Normal 1.7-12.0 [facility] Comment on above: Performed By: #### C BC #### [facility] [address] [place] [address] Dr. Meghan Vital NEUT # 3.4 103/ul Normal 1.4-6.5 [facility] Comment on above: Performed By: #### C BC #### [facility] [address] [place] [address] Dr. Meghan Vital Neutrophils/100 WBC (Bld) 45.8 % Normal 43.0-75.0 [facility] Comment on above: Performed By: #### C BC #### [facility] [address] [place] [address] Dr. Meghan Vital Platelet mean volume (Bld) [Entitic vol] 11.4 fL Normal 9.5-13.5 [facility] Comment on above: Performed By: #### C BC #### [facility] [address] [place] [address] Dr. Meghan Vital PLT 280 103/ul Normal 150-450 [facility] Comment on above: Performed By: #### C BC #### [facility] [address] [place] [address] Dr. Meghan Vital RBC 4.82 106/ul Normal 4.20-5.40 [facility] Comment on above: Performed By: #### C BC #### [facility] [address] [place] [address] Dr. Meghan Vital WBC 7.5 103/ul Normal 4.0-11.0 [facility] Comment on above: Performed By: #### C BC #### [facility] [address] [address] [address] Meghan Vital FREE T4on 09-23-2022 Free T4 [Mass/Vol] 1.17 ng/dL Normal 0.76-1.46 [facility] Comment on above: Performed By: #### H CGSUB #### [facility] [address] [place] [address] Dr. Meghan Vital GLYCOHEMOGLOBIN A1Con 2022 ADA RECOMMENDATION SEE BELOW Normal [facility] Comment on above: Result Comment: ADA RECOMMENDED LIMIT 4.0 - 6.0 ADA THERAPEUTIC TARGET < 7.0 ACTION SUGGESTED > 7.0 Performed By: #### A 1C #### [facility] [address] [place] [address] Dr. Meghan Vital Glucose [Mass/Vol] 100 mg/dL Normal [facility] Comment on above: Performed By: #### A 1C #### [facility] [address] [address] [address] Meghan Vital HbA1c (Bld) [Mass fraction] 5.1 % Normal 4.5-6.2 [facility] Comment on above: Performed By: #### A 1C #### [facility] [address] [place] [address] Dr. Meghan Vital TSHon 09-23-2022 TSH 1.235 uIU/mL Normal 0.358-3.74 0 [facility] Comment on above: Performed By: #### T SH #### [facility] [address] [place] [address] Dr. Meghan Vital PREG QUANT HCGon 07-12-2022 HCG QUANT 1 mIU/mL Normal [facility] Comment on above: Performed By: #### P REGQNT #### [facility] [address] [place] [address] Dr. Meghan Vital HCG RANGE SEE BELOW Normal [facility] Comment on above: Result Comment: 5-50 0.2-1 WEEK 50-500 1-2 WEEKS 100-5,000 2-3 WEEKS 500-10,000 3-4 WEEKS 1,000-50,000 4-5 WEEKS 10,000-100,000 5-6 WEEKS 15,000-200,000 6-8 WEEKS 10,000-100,000 2-3 MONTHS Performed By: #### P REGQNT #### [facility] [address] [id number] Meghan Vital XR HYSTEROSALPINGOGRAMon XR HYSTEROSALPINGOGRAM [...] by: YADIRA BAKER Date: 2022-07-12 12:12 Normal [facility] PROGESTERONEon 06-30-2022 Progesterone 20.9 ng/mL Normal [facility] Comment on above: Result Comment: Foll icular phase 0.1 - 0.9 Luteal phase 1.8 - 23.9 Ovulation phase 0.1 - 12.0 First trimester 11.0 - 44.3 Second trimester 25.4 - 83.3 Third trimester 58.7 - 214.0 Postmenopausal 0.0 - 0.1 Performed By: #### P ROGES #### [facility] [address] [place], [place] [address] Dr. Meghan Vital HCG-BETA SUBUNIT QUANTon hCG,Beta Subunit,Qnt,Serum <1 Normal [facility] Comment on above: Result Comment: Fema le (Non-) 0 - 5 (Postmenopausal) 0 - 8 . Female () Weeks of Gestation 3 6 - 71 4 10 - 750 5 367 - 3839 6 234 - 92872 7 6099 -[phone] 8 81528 -[phone] 9 53118 -792626 10 74712 -220610 12 59004 -214483 14 58500 - 33757 15 68072 - 50873 16 7183 - 23176 17 8175 - 04647 18 8099 - 42155 Jeremy ECLIA methodology Performed By: #### H CGSUB #### [facility] [address] [address] [address] Meghan Vital HCG-BETA SUBUNIT QUANTon hCG,Beta Subunit,Qnt,Serum <1 Normal [facility] Comment on above: Result Comment: Fema le (Non-) 0 - 5 (Postmenopausal) 0 - 8 . Female () Weeks of Gestation 3 6 - 71 4 10 - 750 5 641 - 6278 6 158 - 35173 7 3606 -[phone] 8 88858 -385213 9 37373 -810115 10 61611 -530532 12 16152 -970864 14 22043 - 78181 15 93289 - 90489 16 7524 - 44269 17 8175 - 49105 18 8099 - 44390 Jeremy ECLIA methodology Performed By: #### H CGSUB #### [facility] [address] [address] [address] Meghan Vital PROGESTERONEon 02-26-2022 Progesterone <0.1 Normal [facility] Comment on above: Result Comment: Foll icular phase 0.1 - 0.9 Luteal phase 1.8 - 23.9 Ovulation phase 0.1 - 12.0 First trimester 11.0 - 44.3 Second trimester 25.4 - 83.3 Third trimester 58.7 - 214.0 Postmenopausal 0.0 - 0.1 Performed By: #### P PHIL #### [facility] [address] [address] [address] Meghan Vital US PELVIS AND TRANSVAGon [...] YANIRA MICHAEL Date: 2022-02-24 16:57 Normal [facility] Ambulatory Clinical Summaryo n 12-22-2020 Ambulatory Clinical Summary {[id number] Normal [facility] Medicine Office/Clini c Noteon 12-22-2020 [...] documented 3008F Office Visit Level 2 Est 32585 2. Tobacco use (Z72.0: Tobacco use) We [...] smoker 1034F Office Visit Level 2 Est 44209 3. Hordeolum externum right lower eyelid (H00.012: Hordeolum externum right lower eyelid) Will treat with bacitracin ointment. May use warm compresses 3-4 x day. FU with PCP if not gradually improving over next 7 days, sooner if significantly spreading erythema, edema, warmth, fever. Patient verbalized understanding of tx plan Ordered: Office Visit Level 2 Est 53388 Orders: erythromycin ophthalmic, 0.5 in, OPTH, QID for 7 day(s), 3.5 gm, Refill(s) 0, to right eye, [facility], 163, cm, 12/22/20 15:32:00 EDT, Height/Length [...] Family History Family history is negative Normal [facility] Comment on above: Result Comment: Elec trokirkally Signed By: Ara TURNER CNP.abdi\Date and Time Signed: 12/22/20 16:05 EDT Patient [...] methods. Where to find more information ? [place] [employer]: www.lung.org ? [place] [employer]: www.cancer.org Summary ? Smoking cigarettes [...] 09/21/2005 Document Revised: 11/15/2018 Document Reviewed: 08/18/2017 [employer] Patient Education ? 2020 [employer] [facility] Provider Letteron 12-22-2020 Provider Letter (Inserted Image. Mary ble to display) December 22, 2020 FEDERER, FARTUN L [address] [place] [phone] FARTUN RODRÍGUEZ 1985 To Whom It May Concern, Please excuse above patient from work. 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 STRIPPER cough HPI Staff Patient presents with cough [...] 18 gram, Refill(s) 0, [facility], 163, cm, 11/17/20 16:59:00 EDT, Height/Length Dosing, 59, kg, 11/17/20 16:59:00 EDT, Weight Dosing azithromycin, = 1 packet(s), Oral, As Directed, as directed on package labeling, X 5 day(s), # 6 tab(s), Refills(s) 0, Pharmacy: [facility] [place], 163, cm, 11/17/20 16:59:00 EDT, Height/Length Dosing, 59, kg, 11/17/20 16:59:00 EDT, Weight Dosing benzonatate, 200 mg = 1 cap(s), Oral, TID, X 10 day(s), # 30 cap(s), Refills(s) 0, Pharmacy: [facility] [address], 163, cm, 11/17/20 16:59:00 EDT, Height/Length Dosing, [...] 30 days Tobacco Use:. Cigarettes, Yes, 11/17/2020 [facility] Comment on above: Result Comment: Elec tronically Signed By: MITUL BHAGAT, LASHANDA Hendrix\.br\Date and Time Signed: 11/17/20 17:56 EDT Patient [...] to help relieve symptoms, such as: ? Egpd-ejo-xhvajjp cold medicines. ? Cough suppressants. Coughing is [...] other clear broths. General instructions ? Take akxo-onh-edttjau and prescription medicines only as told by [...] and water are not available, use hand cdl program coordinator. ? Avoid touching your mouth, face, [...] common infecti (more content not included)... Normal [facility] Provider Letteron 11-17-2020 Provider Letter (Inserted Image. Mary ble to display) November 17, 2020 FARTUN RODRÍGUEZ [address] [place] [phone] FARTUN RODRÍGUEZ 1985 To Whom It May Concern, Please excuse above patient from work. Date of Illness: From: 11/17/2020 To: 11/18/2020 May Return to Work On:11/19/2020 Comments: Patient above was seen at [facility] on 11/17/2020. Sincerely, [facility] [address] [place] [address] [facility] Provider Letteron 09-22-2020 Provider Letter (Inserted Image. Mary ble to display) September 22, 2020 FARTUN RODRÍGUEZ [address] [place] [phone] FARTUN RODRGÍUEZ 1985 To Whom It May Concern, Please excuse above patient from work. Date of Illness: From: 09/22/2020 May Return to Work On:09/23/2020 Comments: The above patient may return back to work on the above date. Sincerely, [facility] [address] [place] [address] [facility] SURGICAL PATH REPORTon 07-31 SURGICAL PATH REPORT [facility] Department of Pathology [address] [place], [place] [id number] Name: FARTUN RODRÍGUEZ : 1985 [facility] [id number] Number: Gender: Female Location: [facility] Admit 34 years Attending FERMÍN HURTADO Age: Provider: Ordering FERMÍN HURTADO Provider: Consulting: Surgical Pathology Report ACCESSION: COLLECTED DATE/TIME: RECEIVED DATE/TIME: PATHOLOGIST: [id number] 07/30/2020 13:19 EST 07/30/2020 13:19 SHADE DILL MD Final Diagnosis Report for [facility] [place] [place] [employer]: - [employer]. [...] cm. There are no grossly identifiable parts. Surgical Specialist sections are submitted in three cassettes. MP/ekaterina 07/30/2020 Tissue pathology report for: [facility], [address] [place] [address]; Print Date/ 07/31/2020 15:05 EST Number: Time: [facility] Department of Pathology [address] [place] [phone] Name: FARTUN RODRÍGUEZ : 1985 [facility] [id number] Number: Gender: Female Location: [facility] Admit 34 years Attending FERMÍN HURTADO Age: Provider: Ordering FERMÍN HURTADO Provider: Consulting: Surgical Pathology Report ACCESSION: COLLECTED DATE/TIME: RECEIVED DATE/TIME: PATHOLOGIST: [id number] 07/30/2020 13:19 EST 07/30/2020 13:19 EST SHADE MULLER MD Gross Description PATHOLOGY SERVICES PROVIDED BY [employer] (CLIA #[id number]) in cooperation with [facility] at [address] [place] [address] (CLIA #[id number]) Codes CPT CODE: 37203 Print Date07/31/2020 15:05 EST Number: Time: Normal [facility] Comment on above: Performed By: #### 9 [id number] #### [facility] Laboratory Services [id number] [id number] Soaker: Shade Muller MD Consenton 05-29-2020 Consent [id number]:127 [facility] Registrationon 05-29-2020 Registration [id number]:127 [facility] Influenza A,Bon 11-08-2018 Influenza A, Rapid Ag Negative Normal Negative [facility] Comment on above: Performed By: #### [id number] #### [facility] [address] [place] [address] Influenza B, Rapid Ag Negative Normal Negative [facility] Comment on above: Performed By: #### 5 [id number] #### [facility] [address] [place] [address] Urinalysis with Reflex Cultu reon 11-08-2018 Appearance Nom (U) Clear Normal Clear [facility] Comment on above: Performed By: #### U ARFX #### [facility] [address] [place] [address] Ascorbic Acid Negative Normal Negative [facility] Comment on above: Performed By: #### U ARFX #### [facility] [address] [place] [address] Automated Urine Microscopy Not indicated Normal [facility] Comment on above: Performed By: #### U ARFX #### [facility] [address] [place] [address] Bilirubin mass conc Negative Normal Negative [facility] Comment on above: Performed By: #### U ARFX #### [facility] [address] [place] [address] Blood Negative Normal Negative [facility] Comment on above: Performed By: #### U ARFX #### [facility] [address] [place] [address] Color Nom (U) Yellow Normal [facility] Comment on above: Performed By: #### U ARFX #### [facility] [address] [place] [address] Glucose mass conc 50 mg/dL Abnormal Negative [facility] Comment on above: Performed By: #### U ARFX #### [facility] [address] [place] [address] Ketones Ql (U) Negative Normal Negative [facility] Comment on above: Performed By: #### U ARFX #### [facility] [address] [place] [address] Leukocytes Esterase Negative Normal Negative [facility] Comment on above: Performed By: #### U ARFX #### [facility] [address] [place] [address] Nitrite Ql (U) Negative Normal Negative [facility] Comment on above: Performed By: #### U ARFX #### [facility] [address] [place] [address] pH (Bld) 5.0 Normal 5.0-9.0 [facility] Comment on above: Performed By: #### U ARFX #### [facility] [address] [place] [address] Protein mass conc (U) Negative Normal Negative [facility] Comment on above: Performed By: #### U ARFX #### [facility] [address] [place] [address] Specific gravity Relative Density (U) 1.026 Normal 1.003-1.03 5 [facility] Comment on above: Performed By: #### U ARFX #### [facility] [address] [place] [address] Urobilinogen Qn (U) <2.0 Normal Negative [facility] Healthcare Comment on above: Result Comment: Due to a manufacturing issue, low positive urobilinogen results may be falsely positive. Correlate with urine bilirubin and additional clinical/laboratory findings to assess the risk of hemolytic anemia or liver disease. If clinically indicated, repeat testing with an alternate method is available by contacting the laboratory within 24 hours. Performed By: #### U ARFX #### [facility] [address] [place] [address] STREP GROUP A AG QUALon 08-29 STREP GROUP A AG QUAL STREP GROUP A AG Q UAL GROUP A STREP NEGATIVE FOR STREPTOCOCCUS GROUP A ANTIGEN THROAT CULTURE: REFERRED TO [facility] FOR CULTURE CONFIRMATION CULTURE RESULT: CULTURE NEGATIVE FOR BETA STREP GROUP A [facility] Comment on above: Performed By: #### M STREPA ####[facility] [id number] [place] [address] ED Provider Reporton 018 ED Provider Report [facility] [place], [place] [address]Kkjelic Name: FARTUN RODRÍGUEZ : [birth year]Acct #: [id number] Unit #: [id number] ER Arrival Date: 09/21/17 ER Physician: Yoshi [...] illicit drug usePast Social HistorySmoking Status:FORMER SMOKERTobacco UseCIGARETTESPacks/Kqr4Dwxj :LESS THAN 1 YEAR AGOReview of SystemsReview [...] Resp B/P B/P Pulse O2 O2 Flow GrA3Tccf Ox Delivery Rate09/21 1712 36.5 83 18 147/74 98CommentsAdditionalVital signs [...] to follow-up with PCP.Disposition DecisionDischargeDispositio n Date09/21/17Decision [id number] obiologyDate/Time Procedure - StatusSource Lbizog32/25 1745 Group A Streptococcus Screen (BETHANY) - [...] Cali Gregory P. DO 09/22/17 1146 Normal [facility] Vital Signs Date Time Vital Sign Value Performing Clinician Facility 11-12-2024 10:00-0400 Body mass index (BMI) [Ratio] 30.18 kg/m2 [employer] Work Phone: [facility] 11-12-2024 10:00-0400 Body weight 79.74 kg [employer] Work Phone: [facility] 11-12-2024 10:00-0400 Diastolic blood pressure 72 mm[Hg] [employer] Work Phone: [facility] 11-12-2024 10:00-0400 Systolic blood pressure 100 mm[Hg] [employer] Work Phone: [facility] 10-29-2024 10:05-0500 Body mass index (BMI) [Ratio] 31.21 kg/m2 [employer] Work Phone: [facility] 10-29-2024 10:05-0500 Body weight 82.46 kg Fermín Bryant DO Work Phone: [facility] 10-29-2024 10:05-0500 Diastolic blood pressure 64 mm[Hg] Fermín Bryant DO Work Phone: [facility] 10-29-2024 10:05-0500 Systolic blood pressure 100 mm[Hg] Fermín Bryant DO Work Phone: [facility] 10-03-2024 11:32-0500 Body mass index (BMI) [Ratio] 30.04 kg/m2 Fermín Bryant DO Work Phone: [facility] 10-03-2024 11:32-0500 Body weight 79.38 kg Fermín Bryant DO Work Phone: [facility] 10-03-2024 11:32-0500 Diastolic blood pressure 68 mm[Hg] Fermín Bryant DO Work Phone: [facility] 10-03-2024 11:32-0500 Systolic blood pressure 120 mm[Hg] Fermín Bryant DO Work Phone: [facility] 09-06-2024 10:13-0500 Body weight 77.11 kg Ermelinda Nichols MD Work Phone: [facility] 09-04-2024 15:21-0500 Body mass index (BMI) [Ratio] 28.8 kg/m2 Fermín Bryant DO Work Phone: [facility] 09-04-2024 15:21-0500 Body weight 76.11 kg Fermín Bryant DO Work Phone: [facility] 09-04-2024 15:21-0500 Diastolic blood pressure 64 mm[Hg] Fermín Bryant DO Work Phone: [facility] 09-04-2024 15:21-0500 Systolic blood pressure 100 mm[Hg] Fermín Bryant DO Work Phone: [facility] 07-31-2024 14:58-0500 Body mass index (BMI) [Ratio] 27.7 kg/m2 Fermín Bryant DO Work Phone: [facility] 07-31-2024 14:58-0500 Body weight 73.21 kg Fermín Bryant DO Work Phone: [facility] 07-31-2024 14:58-0500 Diastolic blood pressure 62 mm[Hg] Fermín Bryant DO Work Phone: [facility] 07-31-2024 14:58-0500 Systolic blood pressure 100 mm[Hg] Fermín Bryant DO Work Phone: [facility] 07-04-2024 15:55-0500 Body mass index (BMI) [Ratio] 27.48 kg/m2 [facility] 07-04-2024 15:55-0500 Body weight 72.63 kg [facility] Nurse [facility] 07-04-2024 15:55-0500 Diastolic blood pressure 60 mm[Hg] [facility] Nurse [facility] 07-04-2024 15:55-0500 Systolic blood pressure 110 mm[Hg] [facility] Nurse [facility] 05-31-2023 09:00-0400 Body height 162.56 cm Everett Oliveros Other [employer] Other 05-31-2023 09:00-0400 Body mass index (BMI) [Ratio] 24.54 kg/m2 Everett Oliveros Other [employer] Other 05-31-2023 09:00-0400 Body weight 64.86 kg Everett Oliveros Other [facility] Other 05-31-2023 09:00-0400 Diastolic blood pressure 65 mm[Hg] Everett Oliveros Other [employer] Other 05-31-2023 09:00-0400 Systolic blood pressure 98 mm[Hg] Everett Oliveros Other [facility] Other 11-08-2022 16:15-0400 Body height 162.56 cm Everett Oliveros Other [employer] Other 11-08-2022 16:15-0400 Body mass index (BMI) [Ratio] 25.4 kg/m2 Everett Oliveros Other [employer] Other 11-08-2022 16:15-0400 Body temperature 97.4 [degF] Everett Oliveros Other [employer] Other 11-08-2022 16:15-0400 Body weight 67.13 kg Everett Oliveros Other [employer] Other 11-08-2022 16:15-0400 Diastolic blood pressure 74 mm[Hg] Everett Oliveros Other [employer] Other 11-08-2022 16:15-0400 SaO2% (BldA) [Mass fraction] 99 % Everett Oliveros Other [facility] Other 11-08-2022 16:15-0400 Systolic blood pressure 120 mm[Hg] Everett Oliveros Other [employer] Other 06-12-2022 12:15-0400 Body height 162.56 cm Yolis James Other [employer] Other 06-12-2022 12:15-0400 Body mass index (BMI) [Ratio] 25.74 kg/m2 Yolis James Other [employer] Other 06-12-2022 12:15-0400 Body temperature 98.1 [degF] Yolis James Other [employer] Other 06-12-2022 12:15-0400 Body weight 68.04 kg Yolis James Other [employer] Other 06-12-2022 12:15-0400 Diastolic blood pressure 61 mm[Hg] Yolis James Other [employer] Other 06-12-2022 12:15-0400 Respiratory rate 18 /min Yolis James Other [employer] Other 06-12-2022 12:15-0400 SaO2% (BldA) [Mass fraction] 100 % Yolis James Other [facility] Other 06-12-2022 12:15-0400 Systolic blood pressure 108 mm[Hg] Yolis Jacob Other [employer] Other Encounters Encounter Date Encounter Type Care Provider Facility Start: 11-12-2024 End: 11-12-2024 flow sheet Fermín Bryant DO Work Phone: [facility] Comment on above: Third trimester preg eb; 31 weeks gestation of ; Upper respiratory tract infection, unspecified type; History of bariatric surgery; resulting from in vitro fertilization, antepartum; Multigravida of advanced maternal age in third trimester Start: 11-12-2024 End: 11-12-2024 ambulatory FERMÍN BRYANT Not Available Start: 10-29-2024 End: 10-29-2024 Bamboo flowsheet Fermín Byrant DO Work Phone: [facility] Start: [...] Nichols MD Work Phone: [facility] Comment on above: History of bariatric surgery Start: 10-09-2024 End: 10-09-2024 Clinisync Result Encounter Fermín Bryant DO Work Phone: [facility] External Department Unsolicited Start: 10-09-2024 End: 10-09-2024 Clinisync Result Encounter Fermín Bryant DO Work Phone: [facility] Unsolicited Start: 10-08-2024 End: 10-08-2024 [facility] Start: 10-03-2024 End: 10-03-2024 Bamboo flowsheet Fermín [...] antepartum Start: 10-03-2024 End: 10-03-2024 ambulatory FERMÍN BRYANT Not Available Start: 09-09-2024 End: 09-09-2024 Orders Only Jazmine Black RN Maternal- Medic ine at [facility] Comment on above: resulting from assisted reproductive technology, second trimester (Primary Dx); Low lying placenta nos or without hemorrhage, second trimester; Advanced maternal age in multigravida, second trimester Start: 09-06-2024 End: 09-06-2024 Office consultation new/estab patient 60 min Ermelinda Nichols MD Work Phone: [facility] Comment on above: resulting from assisted reproductive technology, second trimester (Primary Dx); 21 weeks gestation of ; History of bariatric surgery; Advanced maternal age, 1st , second trimester; Low lying placenta nos or without hemorrhage, second trimester Start: 09-06-2024 End: 09-06-2024 ambulatory FERMNÍ HURTADO [facility] Start: 09-04-2024 End: 09-04-2024 flow sheet Fermín Bryant DO Work Phone: [facility] Comment on above: Second trimester pre gnancy; 21 weeks gestation of Start: 09-04-2024 End: 09-04-2024 ambulatory FERMÍN RIZZOO Not Available Start: 09-04-2024 End: 09-04-2024 Bamboo flowsheet Fermín Bryant DO Work Phone: [facility] Start: 09-04-2024 End: 09-04-2024 Bamboo flowsheet Fermín Bryant DO Work Phone: [facility] Start: 08-09-2024 End: 08-09-2024 Chart abstracting Ermelinda Nichols MD Work Phone: [facility] Start: 08-08-2024 End: 08-11-2024 Clinisync Result Encounter Fermín Bryant DO Work Phone: [facility] External Department Unsolicited Start: 08-08-2024 End: 08-11-2024 Clinisync Result Encounter Fermín Bryant DO Work Phone: [facility] External Department Unsolicited Start: 07-31-2024 End: 07-31-2024 Patient encounter procedure Fermín Braynt DO Work Phone: [facility] Healthcare Start: 07-31-2024 End: 07-31-2024 Periodic preventive med est patient 18-39 yrs Fermín Bryant DO Work Phone: [facility] Comment on above: 16 weeks [...] 05-31-2023 End: 05-31-2023 ambulatory Everett Oliveros Other [employer] Other Start: 05-31-2023 Office outpatient vi sit 15 minutes Everett Oliveros [facility] Start: 01-17-2023 End: 01-25-[address] FERMÍN HURTADO . Facility:[facility] Start: 01-09-2023 End: 01-10-[address] FERMÍN HURTADO . Facility:[facility] Start: 11-26-2022 Letter encounter Luisa Ge INSPECTOR [employer]CU[employer]-UNCLAIMED PROPERTY MANAGER Work Phone: [facility] Start: 11-21-2022 End: 11-21-[address] FERMÍN HURTADO . Facility:[facility] Start: 11-21-2022 End: 11-22-[address] FERMÍN HURTADO . Facility:[facility] Start: 11-08-2022 End: 11-08-2022 ambulatory Everett Oliveros Other [facility] Other Start: 11-08-2022 Office outpatient vi sit 15 minutes Everett Oliveros [facility] Start: 10-11-2022 End: 10-12-[address] FERMÍN HURTADO . Facility:[facility] Start: 09-23-2022 End: 09-24-[address] FERMÍN HURTADO . Facility: Start: 09-04-2022 Letter encounter Luisa Ge INSPECTOR [employer]-UNCLAIMED PROPERTY MANAGER Work Phone: [facility] Start: 07-12-2022 End: 07-12-[address] FERMÍN HURTADO . Facility:[facility] Start: 06-29-2022 End: 06-30-[address] FERMÍN HURTADO . Facility:[facility] Start: 06-12-2022 End: 06-12-2022 ambulatory Yolis James Other [facility] Other Start: 06-12-2022 Office outpatient ne w 20 minutes Yolis James [facility] Start: 05-05-[address] FERMÍN HURTADO . Facili ty:[facility] Start: 04-27-2022 End: 04-28-[address] FERMÍN HURTADO . Facility:[facility] Start: 03-23-2022 End: 03-24-[address] FERMÍN HURTADO . Facility:[facility] Start: 02-25-2022 End: 02-26-[address] FERMÍN HURTADO . Facility:[facility] Start: 02-24-2022 End: 02-25-[address] NONE LISTED REQUEST Facility: Start: 05-11-2020 ambulatory Swathi DANIEL [facility] Start: 11-07-2018 End: 11-08-2018 Emergency department patient visit NO FAMILY DOCTOR NO FAMILY DOCTOR Facility:[facility] Start: 09-21-2017 Emergency department patient visit No Family Physician Facility:[facility] Procedures Date Procedure Procedure Detail Performing Clinician Start: 11-12-2024 Urnls dip stick/tabl et rgnt non-auto w/o micrscp Fermín Bryant DO Work Phone: Start: 10-29-2024 Urnls dip stick/tabl et rgnt [...] in Cervix by Cyto stain Luisa Ge APRN-UNCLAIMED PROPERTY MANAGER Work Phone: Plan of Treatment Date Care Activity Detail Author Start: 2036 Shingles (RZV) Vacci ne (1 of 2) Shingles (RZV) [facility] 2) [facility] Start: 07-31-2027 Screening for malign ant neoplasm of cervix Pap Smear [facility] Start: 09-09-2025 End: 09-09-2025 US MFM with or without consult US MFM with or without consult Imaging Routine resulting from assisted reproductive technology, second trimester Low lying placenta nos or without hemorrhage, second trimester Advanced maternal age in multigravida, second trimester Expected: 09/09/2025 (Approximate), Expires: 09/09/2025 [facility] Work Phone: Comment on above: Expected: 09/09/2025 (Approximate), Expires: 09/09/2025 Start: 09-06-2025 Tobacco Screening Tobacco Screening [facility] Start: 11-26-2024 End: 11-26-2024 Patient encounter procedure 11/26/2024 9:10 AM EDT Routine [facility] [address] [place] [address] Fermín Hurtado, DO [address] [place], [place] [address] [address] [facility] Start: 11-19-2024 Subsequent hospital visit by physician 11/19/2024 1:00 PM EDT Hospital Encounter [facility] [address] [place] [address] [facility] Start: 11-12-2024 End: 11-12-2025 US biophysical profile w non stress test US biophysical profile w non stress test Imaging Routine History of bariatric surgery resulting from in vitro fertilization, antepartum Multigravida of advanced maternal age in third trimester Expected: 11/12/2024 (Approximate), Expires: 11/12/2025 [facility] Work Phone: Comment on above: Expected: 11/12/2024 (Approximate), Expires: 11/12/2025 Start: 11-12-2024 End: 11-12-2024 Patient encounter procedure 11/12/2024 10:00 AM EDT Routine [facility] [address] [place] [phone] Fermín Hurtado, [facility] [place] [address] [facility] Start: 10-29-2024 End: 10-29-2024 Patient encounter procedure [facility] Comment on above: Arrived Start: 10-08-2024 End: 10-08-2024 Patient encounter procedure 10/08/2024 2:15 PM EST Appointment [facility] [address] [place] [address] [facility] Start: 10-03-2024 End: 10-03-2025 CBC panel - Blood by Automated count CBC Lab Routine Diabetes mellitus screening Expected: 10/03/2024 (Approximate), Expires: 10/03/2025 [facility] Work Phone: Comment on above: Expected: 10/03/2024 (Approximate), Expires: 10/03/2025 Start: 10-03-2024 End: 10-03-2024 Patient encounter procedure 10/03/2024 11:10 AM EST Routine [facility] [address] [place] [phone] Fermín Hurtado, [address] [place] [address] Arrived [facility] Comment on above: Arrived Start: 10-03-2024 End: 10-03-2024 Patient encounter procedure 10/03/2024 8:50 AM EST Routine [facility] [address] [place] [address] Fermín Hurtado, [address] [address] [facility] Start: 09-06-2024 End: 09-06-2024 Patient encounter procedure [facility] Start: 09-04-2024 End: 09-04-2024 Patient encounter procedure [facility] Comment on above: Arrived Start: 07-31-2024 End: 07-31-2024 Patient encounter procedure [facility] Comment on above: Arrived Start: 07-31-2024 End: 10-01-2024 Alpha fetoprotein, maternal Alpha fetoprotein, maternal Lab Routine Second trimester Well woman exam with routine gynecological exam Expected: 07/31/2024 (Approximate), Expires: 10/01/2024 [facility] Healthcare Comment on above: Expected: 07/31/2024 (Approximate), [...] gestational age Expected: 07/04/2024 (Approximate), Expires: 07/04/2025 [facility] Work Phone: Comment on above: Expected: 07/04/2024 (Approximate), Expires: 07/04/2025 Start: 07-04-2024 End: 07-04-2025 Drugs of abuse panel - Urine by Screen method Rapid drug screen, urine Lab Routine , unspecified gestational age Encounter for supervision of normal first in first trimester Expected: 07/04/2024 (Approximate), Expires: 07/04/2025 [facility] Healthcare Comment on above: Expected: 07/04/2024 (Approximate), Expires: 07/04/2025 Start: 04-28-2024 Influenza vaccination Influenza Vacc ine [facility] Start: 06-26-2023 Tetanus vaccination Tetanus (T d or Tdap) [facility] Start: 07-08-2022 Screening for malign ant neoplasm of cervix Pap Smear [facility] Start: 05-28-2022 Influenza vaccination Influenza Vacc ine (#1) [facility] Start: 2007 Screening for malign ant neoplasm of cervix Pap Smear [facility] Start: 2005 DTaP,Tdap and Td Vaccines (1 - Tdap) DTaP,Tdap and Td Vaccines (1 - Tdap) [facility] Start: 2004 Adult BMI Screening Adult BMI Screen ing [facility] Start: 1998 Depression Screening Depression Scre ening [facility] Start: 1998 Tobacco Screening Tobacco Screening [facility] Start: 02-23-1987 COVID-19 Vaccine (#1) [facility] Start: [facility] Screening for malign ant neoplasm of breast Mammography shared decision making (35 through 39 years) [facility] Bacteria identified in Urine by Culture Urine culture Microbiology Routine Missed menses Ordered: 07/04/2024 [facility] Healthcare Comment on above: Ordered: 07/04/2024 CBC W Auto Different ial panel - Blood CBC and differential Lab Routine Missed menses , unspecified gestational age Ordered: 07/04/2024 [facility] Healthcare Comment on above: Ordered: 07/04/2024 CHLAMYDIA TRACHOMATI S (GENITO/STI) CHLAMYDIA TRACHOMATIS (GENITO/STI) Lab Routine Exposure to STD Ordered: 07/31/2024 [facility] Healthcare Comment on above: Ordered: 07/31/2024 Cytology Cervical or vaginal smear or scraping study Pap Smear Pathology and Cytology Routine Well woman exam with routine gynecological exam Ordered: 07/31/2024 [facility] Comment on above: Ordered: 07/31/2024 Hemoglobin A1c/Hemoglobin.total in Blood Hemoglobin A1c Lab Routine Missed menses , unspecified gestational age Ordered: 07/04/2024 [facility] Comment on above: Ordered: 07/04/2024 Hepatitis B virus surface Ag [Presence] in Serum or Plasma by Immunoassay Hepatitis B surface antigen Lab Routine Missed menses , unspecified gestational age Ordered: 07/04/2024 [facility] Comment on above: Ordered: 07/04/2024 Hepatitis C virus Ab [Presence] in Serum or Plasma by Immunoassay Hepatitis C antibody Lab Routine Missed menses , unspecified gestational age Ordered: 07/04/2024 [facility] Comment on above: Ordered: 07/04/2024 HIV-1/HIV-2 antigen/antibody combination immunoassay HIV-1 and HIV-2 antibodies Lab Routine Missed menses , unspecified gestational age Ordered: 07/04/2024 [facility] Comment on above: Ordered: 07/04/2024 Human papilloma viru s DNA [Presence] in Unspecified specimen by Probe with amplification HPV DNA probe, amplified Microbiology Routine Well woman exam with routine gynecological exam Ordered: 07/31/2024 [facility] Comment on above: Ordered: 07/31/2024 Neisseria gonorrhoea e DNA [Presence] in Unspecified specimen by SANJU with probe detection Neisseria gonorrhea DNA probe, direct Lab Routine Exposure to STD Ordered: 07/31/2024 [facility] Comment on above: Ordered: 07/31/2024 Reagin Ab [Presence] in Serum by RPR RPR Lab Routine Missed menses , unspecified gestational age Ordered: 07/04/2024 [facility] Comment on above: Ordered: 07/04/2024 Rubella antibody, IgG Rubella an tibody, IgG Lab Routine Missed menses , unspecified gestational age Ordered: 07/04/2024 [facility] Comment on above: Ordered: 07/04/2024 SURESWAB(R) ADVANCED VAGINITIS PLUS, TMA SURESWAB(R) ADVANCED VAGINITIS PLUS, TMA Pathology and Cytology Routine Vaginal discharge Ordered: 07/31/2024 [facility] Work Phone: Comment on above: Ordered: 07/31/2024 Immunizations Immunization Date Immunization Notes Care Provider Ubaldo araujo 10-23-2013 tuberculin skin test ; purified protein derivative solution, intradermal Luisa Joo INSPECTOR INTEGRATED CIRCUITS-UNCLAIMED PROPERTY MANAGER Work Phone: [facility] 06-26-2013 tetanus toxoid, redu thalia diphtheria toxoid, and acellular pertussis vaccine, adsorbed Luisa Joo INSPECTOR INTEGRATED CIRCUITS-UNCLAIMED PROPERTY MANAGER Work Phone: [facility] 05-08-2013 human papilloma viru s vaccine, quadrivalent Luisa Ross INSPECTOR INTEGRATED CIRCUITS-UNCLAIMED PROPERTY MANAGER Work Phone: [facility] 01-10-2013 human papilloma viru s vaccine, quadrivalent Luisa Ross INSPECTOR INTEGRATED CIRCUITS-UNCLAIMED PROPERTY MANAGER Work Phone: [facility] 11-15-2012 human papilloma viru s vaccine, quadrivalent Luisa Ross INSPECTOR INTEGRATED CIRCUITS-UNCLAIMED PROPERTY MANAGER Work Phone: [facility] 10-16-2010 tetanus toxoid, redu thalia diphtheria toxoid, and acellular pertussis vaccine, adsorbed Luisa Ross INSPECTOR INTEGRATED CIRCUITS-UNCLAIMED PROPERTY MANAGER Work Phone: [facility] Payers Date Payer Category Payer [facility] er [id number] [facility] Managed Care - Other [id number] 2023 [place] [id number] 2.16.840.1.771842.19 2013 Medicaid [id number] .[id number] 1986 Unknown [id number] 2.16.840.1.033951.3.579.2. 355 1986 Unknown [id number] 2.16.840.1.341893.3.579.2. 732 1986 Unknown [id number] 2.16.840.1.789476.3.579.2. 593 1986 Unknown [id number] 2.16.840.1.126918.3.579.2. 593 1986 Unknown [id number] 2.16.840.1.647244.3.579.2. 593 1986 Unknown [id number] 2.16.840.1.934818.3.579.2. 593 1986 Unknown [id number] 2.16.840.1.509374.3.579.2. 593 1986 Unknown [id number] 2.16.840.1.371855.3.579.2. 593 1986 Unknown [id number] 2.16.840.1.142031.3.579.2. 593 1986 Unknown [id number] 2.16.840.1.577630.3.579.2. 593 1986 Unknown [id number] 2.16.840.1.178437.3.579.2. 593 1986 Unknown [id number] 2.16.840.1.723965.3.579.2. 593 1986 Unknown [id number] 2.16.840.1.250135.3.579.2. 593 1986 Unknown [id number] 2.16.840.1.373340.3.579.2. 593 1986 Unknown [id number] 2.16.840.1.776641.3.579.2. 593 1986 Unknown [id number] 2.16.840.1.544274.3.579.2. 1286 1986 Unknown [id number] 2.16.840.1.666900.3.579.2. 1286 1986 Unknown [id number] 2.16.840.1.624776.3.579.2. 1286 1986 Unknown [id number] 2.16.840.1.149337.3.579.2. 1259 1986 Unknown [id number] 2.16.840.1.948826.3.579.2. 1259 1986 Unknown [id number] 2.16.840.1.440352.3.579.2. 1259 1986 Unknown [id number] 2.16.840.1.403104.3.579.2. 1259 1986 Unknown [id number] 2.16.840.1.535251.3.579.2. 1259 1986 Unknown [id number] 2.16.840.1.080966.3.579.2. 1259 1959 Medicaid [id number] 1958 Medicaid [id number] 2.16.840.1.493845.19 Social History Date Type Detail Facility Start: 09-06-2024 Sex Assigned At [facility] Other Start: 10-17-2017 Tobacco smoking status ILIS Ex-smoker [facility] End: 03-28-2017 History of tobacco use Current smoker [facility] End: 03-28-2017 History of tobacco use Cigarette Smoker [facility] Start: 10-17-2017 End: 09-06-2024 Cigarettes smoked current (pack per day) - Reported 0.5 [facility] Start: 10-17-2017 End: 09-06-2024 Tobacco use and exposure Smokeless tobacco non-user [facility] Start: 04-17-2020 Alcohol intake Current drinker of alcohol (finding) [facility] Start: 10-17-2017 Tobacco Comment Patient quit March 2017 [facility] Start: 1985 Sex Assigned At Female [facility] Tobacco smoking stat us ILIS Tobacco smoking consumption unknown [facility] Start: 04-20-2024 [facility] Start: 06-03-2023 Gender identity Identifies as female gender (finding) [facility] Start: 06-03-2023 Sexual orientation Heterosexual (finding) [facility] Start: 09-06-2024 Tobacco smoking status NHIS Never smoked tobacco [facility] Start: 09-06-2024 Alcoholic beverage intake Ex-drinker (finding) [facility] Within the past 12 months we worried whether our food would run out before we got money to buy more. 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 female who presents for Routine Visit Patient presents today for Return OB appointment. MEDICATIONS Current Outpatient Medications Medication Instructions aspirin 81 mg, Daily Continuous Glucose Dope Weigh Operator (Dexcom G6 projection technician) device Use as instructed Continuous Glucose Transmitter (Dexcom G6 transmitter) misc [...] nursing note reviewed. Exam conducted with a supervisor wash house present. Vitals: Estimated body mass index is 30.18 kg/m as calculated from the following: Height as of 11/21/22: 5' 4 . Weight as of this encounter: 175 lb 12.8 oz. BP: 100/72 No LMP recorded. Patient is . ASSESSMENT & PLAN ICD-10-CM 1. Third trimester Z34.93 POCT urinalysis dipstick manually resulted 2. 31 weeks gestation of Z3A.31 Return OB: Patient presents today for a routine obstetrics appointment. Patient is currently 31w2d . Patient states she is doing well but has complaints of being tired due to current . Patient has verbalizes frequent movement. labor precautions was discussed/given and patient was instructed to perform kick counts three times a day. NST/BPP given rx for zpack faxed to pharmacy Orders Placed This Encounter Procedures US biophysical profile w non stress test POCT urinalysis dipstick manually resulted Follow Up: Patient is to return to office in 2 week for routine OB appointment. Documented by Patricia Carter LPN on behalf of: Fermín Hurtado DO documented in this encounter [facility] 10-29-2024 History of Present illness Narrative Reason for Appointment: Patient ID: Fartun Hall is a 39 y.o. female who presents for Routine Visit Patient presents today for Return OB appointment. MEDICATIONS Current Outpatient Medications Medication Instructions aspirin 81 mg, Daily Continuous Glucose Dope Weigh Operator (Dexcom G6 projection technician) device Use as instructed Continuous Glucose Sensor [...] nursing note reviewed. Exam conducted with a supervisor wash house present. Vitals: Estimated body mass index is [...] noted bilaterally. Patient is currently still seeing [facility] for growth scan/NST/BPP. Patient to return to clinic in 2 weeks and then she will be able to decide if she would like to have NST/BPPs done locally or continue with [facility]. Patient voiced that she is unabl eto put her work shoes on due to swelling and will be taking off work midway through this month. Documented by Trupti Gentile LPN on behalf of: Fermín Hurtado DO documented in this encounter [facility] 10-03-2024 History of Present illness Narrative Reason [...] nursing note reviewed. Exam conducted with a supervisor wash house present. Vitals: Estimated body mass index is [...] obtained supplies she will reach out to Epilepsy Physician to have device placed on arm, patient was given blood sugar logs to bring to next appointment for review once device is placed. Documented by Trupti Gentile LPN on behalf of: Fermín Hurtado DO documented in this encounter [facility] 09-06-2024 History of Present illness Narrative Headache/epigastric [...] female Have you been seen here at [facility] in a previous ? No Recent ER visits or hospitalizations? No Bring blood sugar log or meter with you today? (Please bring them with you for every visit at [facility]) n/a Flu vaccine (Jun-October)? No Any [...] and 22q11 Carrier screening: Baby Girl: Eryn Serna have reviewed the pertinent available patient records [...] Allergies CURRENT MEDICATIONS: Current Outpatient Medications: ferrous [id number]-v80-[id number] C-folic acid (FOLTRIN) 110-0.5 mg capsule, Take 1 capsule by mouth every morning before breakfast., Disp: , Rfl: [id number]-[id number]-hxmze acid ( 19) 29 mg iron- 1 [...] TESTS AND ULTRASOUND REPORTS: Referral records and [facility] chart were reviewed Pertinent Ultrasound findings are [...] those pregnancies occurring naturally (1.3% vs 0.7%). [facility] suggest that echocardiogram be offered to patients [...] aspirin vs 10.3% no aspirin, p=0.45) (PMBID: [id number]). Given well-established benefits baby aspirin for the prevention of preeclampsia, I recommend initiating baby aspirin even in the setting of history of Alberto-en-Y surgery. PPI prophylaxis is additionally recommended by bariatric surgeons, 20 mg daily ordered today in addition to aspirin 81 mg daily. Micronutrient Dosing Recommendations: Calcium: recommend 1000-1200mg daily; if deficient, recommend 1800-13479 mg PO daily in divided doses Vitamin [...] ultrasound, attempt completion in 4-6 weeks at [facility] Repeat growth ultrasound along with transvaginal ultrasound to re-evaluate placental location in 11 weeks at 32 weeks gestation, through [facility] Repeat growth ultrasound at 36-37 weeks [...] patient is in complete care of her accredited pharmacy technician. Patient does have ultrasound scheduled with us. Thank you for allowing me to participate in the care of Fartun Hall. If there any questions please do not hesitate to contact us. Ermelinda Nichols MD Maternal- Medicine [facility] [address] [place] [address] [facility], the CDC, and other organizations representing maternal and public health professionals recommend that , , and lactating people and those considering receive the COVID-19 vaccination. Vaccination is the best method to reduce maternal and complications of SARS-CoV-2 infection. This document was created with [employer] technology. Though I make every effort to review the dictation as it is transcribed, on occasion the spoken word can be misinterpreted by the technology leading to inappropriate words, phrases, or sentences. This note is addressed to the requesting provider as a consultation for clinical guidance. Specific medical abbreviations are occasionally used and those are generally approved by the [place]?Board of?Obstetrics and?Gynecology?as well as?Ruth ware abbreviations. The above plan of care was based solely on the diagnoses for which a consultation was requested. ?More frequent testing may be indicated based on her other medical/obstetrical conditions. The management of other or medical conditions is beyond the scope of requested consultation and will continue to be followed by the primary accredited pharmacy technician or primary care provider. Note to patient: [...] of the practitioner. documented in this encounter [facility] 09-04-2024 History of Present illness Narrative Reason [...] nursing note reviewed. Exam conducted with a supervisor wash house present. Vitals: Estimated body mass index is [...] Delivery: 01/12/25. Pt having anatomy scan at [facility] on Monday. Pt has complaints of dry itchy ears. Drops called into pharmacy. Pt to return in 4 weeks for scheduled OB appt. Documented by Patricia Carter LPN on behalf of: Fermín Hurtado DO documented in this encounter [facility] 07-31-2024 History of Present illness Narrative Reason [...] nursing note reviewed. Exam conducted with a supervisor wash house present. Vitals: Estimated body mass index is [...] Fermín Hurtado DO documented in this encounter [facility] 07-04-2024 History of Present illness Narrative Reason [...] or undercooked meat, and stay away from [facility]. Patient has also been advised to [...] Shannon Farr LPN documented in this encounter [facility] 05-31-2023 Evaluation note Encounter Date Diagnosis Assessment Notes May, Dandruff in adult (ICD-10 - L21.0) Trial of medicated shampoo. Call if no improvement. 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 Will add drop with steroid component. Discussed proper hearing protection - possibly ear muff style. Also discussed ENT referral if needed. [facility] Other 10-16-2022 Evaluation note* Encounter Date Diagnosis [...] water inside ear after shower may use co chairman on lowest cool setting to blow dry. Follow up with PCP or UC if no improvement in the next 2-3 days. Immediate eval for severe ear pain, severe headache, neck pain/stiffness, pain, erythema, or swelling behind the ear, fever, N/V, hearing loss, fever, or any other new or concerning symptoms. Patient verbalizes understanding and is agreeable to treatment plan [facility] Other Evaluation note* Diagnosis Missed menses , unspecified gestational age Encounter for supervision of normal first in first trimester documented in this encounter [facility] HealthcareEvaluation note* Diagnosis 16 weeks gestation of Second trimester state, incidental Well woman exam with routine gynecological exam Routine gynecological examination Screening, , for anatomic survey Encounter for anatomic survey Exposure to STD Vaginal discharge Leukorrhea, not specified as infective Ear infection Unspecified otitis media documented in this encounter [facility] HealthcareEvaluation note* Diagnosis Second trimester state, incidental 21 weeks gestation of documented in this encounter [facility] HealthcareEvaluation note* Diagnosis resulting from assisted reproductive technology, second trimester- Primary 21 weeks gestation of History of bariatric surgery Bariatric surgery status Advanced maternal age, 1st , second trimester Low lying placenta nos or without hemorrhage, second trimester documented [facility] Diagnosis resulting from assisted reproductive technology, second trimester- Primary Low lying placenta nos or without hemorrhage, second trimester Advanced maternal age in multigravida, second trimester documented in this encounter [facility]* Diagnosis Diabetes mellitus screening Screening for diabetes mellitus 25 weeks gestation of Second trimester state, incidental History of bariatric surgery Bariatric surgery status resulting from in vitro fertilization, antepartum documented in this encounter [facility] HealthcareEvaluation note* Diagnosis History of bariatric surgery Bariatric surgery status documented in this encounter [facility]* Diagnosis Third trimester state, incidental 29 weeks gestation of documented in this encounter [facility] HealthcareEvaluation note* Diagnosis Third trimester state, incidental 31 weeks gestation of Upper respiratory tract infection, unspecified type History of bariatric surgery Bariatric surgery status resulting from in vitro fertilization, antepartum Multigravida of advanced maternal age in third trimester documented in this encounter [facility] HealthcareHistory general Narrative - Reported* Type Description [...] REPIAR 2017 Hospitalization History SEE SURGICAL HX [facility] Other InstructionsNot on filedocumented in this encounter [facility] SystemInstructionsNot on filedocumented in this encounter [facility] System[facility]ructionsNot on filedocumented in this encounter [facility] Summary Purpose Family History No [...] section and content) DATE CREATED AUTHOR 02/19/2018 [facility] DATE CREATED AUTHOR AUTHOR'S ORGANIZ ATION 11/14/2018 [facility] DATE CREATED AUTHOR AUTHOR'S ORGANIZ ATION 09/17/2020 [facility] DATE CREATED AUTHOR AUTHOR'S ORGANIZ ATION 12/23/2020 [facility] DATE CREATED AUTHOR AUTHOR'S ORGANIZ ATION 10/21/2021 [facility] DATE CREATED AUTHOR AUTHOR'S ORGANIZ ATION 02/03/2023 [facility] DATE CREATED AUTHOR AUTHOR'S ORGANIZ ATION 09/11/2024 [facility] DATE CREATED AUTHOR AUTHOR'S ORGANIZ ATION 10/10/2024 [facility] DATE CREATED AUTHOR AUTHOR'S ORGANIZ ATION 11/14/2024 [facility] dicla Specialists EPIC REASON FOR VISIT (unrecogniz ed section and content) Reason Comments Amenorrhea Reason Comments Routine Visit Reason Comments ama Fertility Preservation Reason Comments Med Change Request Care Teams (unrecognized sec tion and content) Commercial Title Examiner Relationship Specialty Start Date End Date Luisa Ge APRN-LEOLA [address] [place] [address] CATTLE TRADER Pulmonary Medicine 06/02/20 Jamie Hardin MD [address], [place] [id number] Physician General Surgery 06/02/20 Page Faulkner M.Ed., R.D., L.D. [address] [address] Dietitian Nutrition 06/02/20 Rita Catherine MD [address] [place] [address] [place] [address] Physician Obstetrics/Gynecology 06/02/20 Rishabh Hi, INSPECTOR INTEGRATED CIRCUITS-UNCLAIMED PROPERTY MANAGER [address] [place] [address] CATTLE TRADER Anesthesiology 06/02/20 Commercial Title Examiner Relationship Specialty Start Date End Date Luisa Ge INSPECTOR INTEGRATED CIRCUITS-UNCLAIMED PROPERTY MANAGER [address] [place] [phone] CATTLE TRADER Pulmonary Medicine 06/02/20 Jamie Hardin MD [address] [place] [address] Physician General Surgery 06/02/20 Page Faulkner M.Ed., R.D., L.D. [address] [address] Dietitian Nutrition 06/02/20 Rita Catherine MD [address] [place] [address] [place] [address] Physician Obstetrics/Gynecology 06/02/20 Rishabh Hi, INSPECTOR INTEGRATED CIRCUITS-UNCLAIMED PROPERTY MANAGER [address] [place] [address] CATTLE TRADER Anesthesiology 06/02/20 Commercial Title Examiner Relationship Specialty Start Date End Date Everett Oliveros MD [address] [place] [phone] PCP - General Family Medicine 03/29/23 Commercial Title Examiner Relationship Specialty Start Date End Date Everett Oliveros MD [address] [place] [address] PCP - General Family Medicine 03/29/23 Commercial Title Examiner Relationship Specialty Start Date End Date Everett Oliveros MD [address] [facility] [place] [address] PCP - General Family Medicine 03/29/23 Commercial Title Examiner Relationship Specialty Start Date End Date Everett Oliveros MD [address] [facility] [place] [address] PCP - General Family Medicine 03/29/23 Commercial Title Examiner Relationship Specialty Start Date End Date Everett Oliveros MD [address] [facility] [place] [phone] PCP - General Family Medicine 03/29/23 Commercial Title Examiner Relationship Specialty Start Date End Date Everett Oliveros MD [address] [facility] [place] [phone] PCP - General Family Medicine 03/29/23 Commercial Title Examiner Relationship Specialty Start Date End Date Everett Oliveros MD [address] [facility] [place] [address] PCP - General Family Medicine 03/29/23 Commercial Title Examiner Relationship Specialty Start Date End Date Everett Oliveros MD [address] [place] [address] PCP - General Family Medicine 03/29/23 Commercial Title Examiner Relationship Specialty Start Date End Date Everett Oliveros MD [address] [facility] [place] [phone] PCP - General Family Medicine 03/29/23 Commercial Title Examiner Relationship Specialty Start Date End Date Everett Oliveros MD [address] [facility] [place] [phone] PCP - General Family Medicine 03/29/23 FOR [...] BE BASED ON THE PRIMARY CLINICAL RECORDS. [employer] [facility]. provides no warranty or guarantee of the accuracy or completeness of information in this document.
[2024-11-16 11:16] VITALS: BP 112/69; PULSE 63; TEMP 36.1
== END 2024-11-16 11:55 | disposition home or self-care (01) ==
LOC: FBCO 11:01 → FBC 11:07
PROVIDERS: PCP Family Medicine; Visit Provider Obstetrics & Gynecology
DX: O26.893 Other specified pregnancy related conditions, third trimester (principal); Z3A.32 32 weeks gestation of pregnancy
CPT/HCPCS: 59025

== ENCOUNTER 2024-11-20 10:53 | Outpatient (OUT) | payer BC, SELFPAY ==
--- NOTE | 2024-11-20 | US_ITS ---
[address] [address] Patient Name: FARTUN HALL MRN: [id number] date: 1985 Sex: F Assigned Patient Location: [facility] Current Patient Location: Accession/Order Number: [id number] Exam Date: 11/20/2024 15:25 Report Date: 11/20/2024 15:26 At the request of: ANA PAULA JOHN DO Procedure: US OB BPP w non-stress Biophysical profile. Reason for exam: Advanced maternal age. History of bariatric surgery. COMPARISON: 11/13/2024 TECHNIQUE: Transabdominal imaging of the gravid uterus was obtained. FINDINGS: Packing Machine Inspector reports a BPP of 8 out of 8. CYNTHIA is normal at 13.2cm. heart rate 156bpm. US/US OB BPP w non-stress IMPRESSION: BPP 8 out of 8. Impression dictated by: Corey Fregoso Jr., D.O.11/20/2024 3:26 PM Dictation Location: [place] 3D[facility]ENMove[facility]Z Electronically authenticated by: [id number] Y Date: 11/20/2024 15:26
[2024-11-20 11:01] VITALS: BP 111/61; PULSE 83
--- OUTSIDE RECORDS SUMMARY | 2024-11-20 11:09 | XMS_ITS | CCD ---
Author Organization [facility] Care Team Providers Care Instrument Mechanic Name Role Phone No Family Physician Unavailable Unavailable No Family Physician Unavailable Unavailable NO FAMILY DOCTOR, NO FAMILY DOCTOR Primary Care Unavailable YANIRA MARTINO Attending Unavailable Swathi DANIEL Referring Unavailab le PROVIDER, UNKNOWN Attending Unavailable PROVIDER, UNKNOWN Admitting Unavailable IWLSON CASTRO Primary Care Unavailable Yolis James Unavailable Joo PACKER, Luisa Unavailable [phone] Lashawn MESSER, Jamie Unavailable [phone] Kaushik West, R.Keyana., L.D., Page Unavailable Florin MESSER, Rita Unavailable Sussy PACKER, Rishabh NAlexia Unavailable [phone] Everett Oliveros Unavailable Joo PACKER, Luisa Unavailable [...] ble BRYANT ., DR GOSS Attending Unavailable BIRCHWOOD, DR YANIRA Steele Consulting Unavailable BRYANT ., [...] DR GOSS Consulting Unavailable Arlin MESSER, Everett [facility] Provider Unavailable Primary Care Provider Unavailabl [...] adverse reactions to drug (disorder) 9 [employer] [facility] Repository Medications Current Medications Medication Drug [...] by mouth once daily before breakfast ferrous [id number] c C-folic acid (FOLTRIN) 110-0.5 mg capsule [...] 1 Package 11 06/18/2019 Active Continuous Glucose Lens Mounter (Dexcom G6 cyber security instructor) device (5 sources) Start: 10-09-2024 Continuous Glucose Lens Mounter (Dexcom G6 cyber security instructor) device Indications: Diabetes mellitus screening , History of bariatric surgery Use as instructed 1 each 10/09/2024 Active Continuous Glucose Lens Mounter (FreeStyle Emmy 3 [place]) device (3 sources) Start: 10-03-2024 End: 10-17-2024 Continuous Glucose Lens Mounter (FreeStyle Emmy 3 [place]) device Indications: Diabetes mellitus screening , History [...] / neomycin 3.5 mg/ml / polymyxin b [id number] unt/ml otic solution (1 source) Aminoglycoside Antibacterial, [...] Take 1 each by mouth Daily Active [id number] acid ( 19) 29 mg iron- 1 mg tablet,chewable (3 sources) [id number] acid ( 19) 29 mg iron- 1 [...] UA Positive Negative - 4(70) +++ mg/dL [facility] Comment on above: small Blood, UA Negative Negative - 50 Nnamdi/mcL [facility] Clarity, UA Clear [facility] Color, UA Yellow [facility] Glucose, UA Negative Negative - 1999(110) ++++ mg/dL [facility] Interpretation and review of laboratory results Abnormal [facility] Ketones, UA Positive Negative - 160(16) ++++ mg/dL [facility] Comment on above: 15mg/dL Leukocytes, UA Negative Negative - 500+++ Dilcia/mcL [facility] Nitrite, UA Negative Negative - Positive [facility] pH, UA 6 5 - 9 [facility] Protein, UA Positive Negative - 1999(20) ++++ mg/dL [facility] Comment on above: 30mg/dL Spec Grav, UA 1.025 1 - 1.03 [facility] Urobilinogen, UA 1.0 0.2 - 12 mg/dL [facility] Urinalysis macro (dipstick) panel (U)on 10-29-2024 Bilirubin, UA Negative Negative - 4(70) +++ mg/dL [facility] Blood, UA Negative Negative - 50 Nnamdi/mcL [facility] Clarity, UA Clear [facility] Color, UA Yellow [facility] Glucose, UA Negative Negative - 1999(110) ++++ mg/dL [facility] Interpretation and review of laboratory results Abnormal [facility] Ketones, UA Negative Negative - 160(16) ++++ mg/dL [facility] Leukocytes, UA Negative Negative - 500+++ Dilcia/mcL [facility] Nitrite, UA Negative Negative - Positive [facility] pH, UA 7 5 - 9 [facility] Protein, UA Trace Negative - 1999(20) ++++ mg/dL [facility] Spec Grav, UA 1.025 1 - 1.03 [facility] Urobilinogen, UA 4.0 0.2 - 12 mg/dL [facility] ALL CBC WITH AUTO DIFFon BASOPHILS ABSOLUTE AUTO 0.1 [facility] Basophils/100 WBC (Bld) 0.6 % 0.2 - 2.0 % [facility] Eosinophils/100 WBC (Bld) 3.2 % 0.9 - 7.0 % [facility] Erythrocyte distribution width (RBC) [Ratio] 13.1 % 11.0 - 15.0 % [facility] Hematocrit (Bld) [Volume fraction] 34.1 % Low 36.0 - 48.0 % [facility] Hemoglobin (Bld) [Mass/Vol] 10.9 g/dL Low 12.0 - 16.0 g/dL [facility] IMMATURE GRANULOCYTES ABS AUTO 0.03 [facility] Immature granulocytes/100 WBC (Bld) 0.3 % 0.0 - 0.5 % [facility] Interpretation and review of laboratory results Abnormal [facility] LYMPHOCYTES ABSOLUTE AUTO 2.9 [facility] Lymphocytes/100 WBC (Bld) 27.6 % 20.5 - 60.0 % [facility] MCH (RBC) [Entitic mass] 26.5 pg Low 26.7 - 34.0 pg [facility] MCHC (RBC) [Mass/Vol] 32 g/dL 29.9 - 35.2 g/dL [facility] MCV (RBC) [Entitic vol] 82.8 fL 81.0 - 99.0 fL [facility] MONOCYTES ABSOLUTE AUTO 0.7 [facility] Monocytes/100 WBC (Bld) 6.3 % 1.7 - 12.0 % [facility] NEUTROPHILS ABSOLUTE AUTO 6.5 [facility] Neutrophils/100 WBC (Bld) 62 % 43.0 - 75.0 % [facility] Platelet mean volume (Bld) [Entitic vol] 11.6 fL 9.5 - 13.5 fL [facility] EO # 0.3 [facility] PLT 348 [facility] RBC 4.12 Low [facility] WBC 10.4 [facility] Urinalysis macro (dipstick) panel (U)on 10-03-2024 Bilirubin, UA Negative Negative - 4(70) +++ mg/dL [facility] Blood, UA Negative Negative - 50 Nnamdi/mcL [facility] Clarity, UA Clear [facility] Color, UA Yellow [facility] Glucose, UA Negative Negative - 1999(110) ++++ mg/dL [facility] Interpretation and review of laboratory results Abnormal [facility] Ketones, UA Negative Negative - 160(16) ++++ mg/dL [facility] Leukocytes, UA Negative Negative - 500+++ Dilcia/mcL [facility] Nitrite, UA Negative Negative - Positive [facility] pH, UA 6.5 5 - 9 [facility] Protein, UA Trace Negative - 1999(20) ++++ mg/dL [facility] Spec Grav, UA 1.025 1 - 1.03 [facility] Urobilinogen, UA 1.0 0.2 - 12 mg/dL [facility] Urinalysis macro (dipstick) panel (U)on 09-04-2024 Bilirubin, UA Negative Negative - 4(70) +++ mg/dL [facility] Blood, UA Negative Negative - 50 Nnamdi/mcL [facility] Clarity, UA Clear [facility] Color, UA Yellow [facility] Glucose, UA Negative Negative - 1999(110) ++++ mg/dL [facility] Interpretation and review of laboratory results Normal [facility] Ketones, UA Negative Negative - 160(16) ++++ mg/dL [facility] Leukocytes, UA Negative Negative - 500+++ Dilcia/mcL [facility] Nitrite, UA Negative Negative - Positive [facility] pH, UA 5.5 5 - 9 [facility] Protein, UA Negative Negative - 2000(20) ++++ mg/dL [facility] Spec Grav, UA 1.02 1 - 1.03 [facility] Urobilinogen, UA 1.0 0.2 - 12 mg/dL [facility] AFP, SERUM, OPEN SPINA BIFID Aon 08-11-2024 AFP MOM 1.01 . [facility] AFP VALUE 39.6 ng/mL . [facility] COMMENT: Comment . [facility] Comment on above: Hazel Dixon , Ph.D., [facility] Director References: Available Upon Request. Multiples Of Median Cutoffs For AFP Elevations Krishna 2.5 Black 2.8 IDD 2.0 Twins 4.5 Abbreviation Definitions IDD - Insulin Dep Diabetes OSBR - Open Spina Bifida Risk For further inquiries contact [facility] at [phone]. This test was developed and its performance characteristics determined by [employer] It has not been cleared or approved by the Food and Drug Administration. Performed at: [facility] [address] [place], [place] [id number] [employer]: Mc Doshi [facility], Phone: [phone] GEST. AGE ON COLLECTION DATE 17.7 . weeks [facility] GESTAT. AGE BASED ON Ultrasound . [facility] Comment on above: 16.6 on 07/31/2024 Recalculations are not recommended when gestational dating by LMP and ultrasound are within 10 days. INSULIN DEP DIABETES No . [facility] INTERPRETATION Comment . [facility] Comment on above: Interpretation: Scre en [...] Customer Services to discuss available options. The [employer] recommends amniocentesis be offered to women age 35 and older. [age] [facility] MULTIPLE GESTATION No . [facility] [place] [address] [place] [id number] . [facility] RACE . [facility] RESULTS Report . [facility] TEST RESULTS: Negative . [facility] WEIGHT 161 . lbs [facility] N N ULTRASOUND [id number] 4 16 N 1 Y 161 N N N N N White/ [facility] IGP,APTIMA HPV,AGE GDLNon AGE GDLN ACOG TESTING Note . [facility] Comment on above: TESTS RESULT FLAG UN ITS REF RANGE LAB Clinician Provided Cytology Information Source.............Cervix Other.............. No. of containers..01 ThinPrep Vial Age Algo ACOG Aniya... 30-65 01 FLAG LEGEND: L-Low Normal,H-High Normal,LL-Alert Low,HH-Alert High <-Panic Low,>-Panic High,A-Abnormal,AA-Critical Abnormal Performed at: 01 =G [address] [address] Dipti Hurtado MD, HPV APTIMA Negative Negative [facility] Comment on above: This nucleic acid am plification test detects fourteen high- risk HPV types (16,18,31,33,35,39,45,51,52,56,58,59,66,68) without differentiation. Performed at: =G [facility] [id number] [employer]: Dipti Hurtado MD, Phone: [phone] Performed at: - [facility] [id number] [employer]: Dipti Hurtado MD, Phone: [phone] IGP, APTIMA HPV, RFX 16/18,45 Note . [facility] Comment on above: TESTS RESULT FLAG UN ITS REF RANGE LAB DIAGNOSIS: 02 NEGATIVE FOR INTRAEPITHELIAL LESION OR MALIGNANCY. Specimen adequacy: 02 Satisfactory for evaluation. Endocervical and/or squamous metaplastic cells (endocervical component) are present. Performed by: 02 Adria Kincaid, Records Management Director ([facility]) . 02 Note: Note 02 The [...] <-Panic Low,>-Panic High,A-Abnormal,AA-Critical Abnormal Performed at: [address] [phone] Dipti Hurtado MD, SPATULA-ALONE CERVIX [facility] RECURRENT VAGINITIS (HTRX)on 08-03-2024 ATOPOBIUM VAGINAE 0 [facility] ATOPOBIUM VAGINAE Not detected [facility] BVAB 2,3 (BACTERIAL VAGINOSIS ASSOCIATED BACTERIA 2, 3); MOBILUNCUS SPP 27.074 Abnormal [facility] BVAB 2,3 (BACTERIAL VAGINOSIS ASSOCIATED BACTERIA 2, 3); MOBILUNCUS SPP Detected Abnormal [facility] LULY ALBICANS, PARAPSILOSIS, TROPICALIS 0 [facility] LULY ALBICANS, PARAPSILOSIS, TROPICALIS Not detected [facility] LULY GLABRATA 0 [facility] LULY GLABRATA Not [facility] KRUSEI 0 [facility] LULY KRUSEI Not [facility] CHLAMYDIA TRACHOMATIS 0 [facility] CHLAMYDIA TRACHOMATIS Not detected [facility] GARDNERELLA VAGINALIS 30.955 Abnormal [facility] S [facility] GARDNERELLA VAGINALIS Detected Abnormal [facility] Interpretation and review of laboratory results Abnormal [facility] MEGASPHAERA (TYPES 1, 2) 0 [facility] MEGASPHAERA (TYPES 1, 2) Not detected [facility] MYCOPLASMA GENITALIUM 0 [facility] S [facility] MYCOPLASMA GENITALIUM Not detected N S [facility] NEISSERIA GONORRHOEAE 0 [facility] NEISSERIA GONORRHOEAE Not detected N [facility] TET B, TET M 16.937 Abnormal [facility] TET B, TET M Detected Abnormal [facility] TRICHOMONAS VAGINALIS 0 [facility] TRICHOMONAS VAGINALIS Not detected N [facility] Urinalysis macro (dipstick) panel (U)on 07-31-2024 Bilirubin, UA Negative Negative - 4(70) +++ mg/dL [facility] Blood, UA Negative Negative - 50 Nnamdi/mcL [facility] Clarity, UA Clear [facility] Color, UA Yellow [facility] Glucose, UA Negative Negative - 2000(110) ++++ mg/dL [facility] Interpretation and review of laboratory results Normal [facility] Ketones, UA Negative Negative - 160(16) ++++ mg/dL [facility] Leukocytes, UA Negative Negative - 500+++ Dilcia/mcL [facility] Nitrite, UA Negative Negative - Positive [facility] pH, UA 6 5 - 9 [facility] Protein, UA Negative Negative - 1999(20) ++++ mg/dL [facility] Spec Grav, UA 1.015 1 - 1.03 [facility] Urobilinogen, UA 1.0 0.2 - 12 mg/dL [facility] ALL CBC WITH AUTO DIFFon BASOPHILS ABSOLUTE AUTO 0.1 [facility] Basophils/100 WBC (Bld) 0.6 % 0.2 - 2.0 % [facility] Eosinophils/100 WBC (Bld) 3.7 % 0.9 - 7.0 % [facility] Erythrocyte distribution width (RBC) [Ratio] 13.1 % 11.0 - 15.0 % [facility] Hematocrit (Bld) [Volume fraction] 36.3 % 36.0 - 48.0 % [facility] Hemoglobin (Bld) [Mass/Vol] 11.7 g/dL Low 12.0 - 16.0 g/dL [facility] IMMATURE GRANULOCYTES ABS AUTO 0.03 [facility] Immature granulocytes/100 WBC (Bld) 0.3 % 0.0 - 0.5 % [facility] Interpretation and review of laboratory results Abnormal [facility] LYMPHOCYTES ABSOLUTE AUTO 3.1 [facility] Lymphocytes/100 WBC (Bld) 31.7 % 20.5 - 60.0 % [facility] MCH (RBC) [Entitic mass] 27.7 pg 26.7 - 34.0 pg [facility] MCHC (RBC) [Mass/Vol] 32.2 g/dL 29.9 - 35.2 g/dL [facility] MCV (RBC) [Entitic vol] 85.8 fL 81.0 - 99.0 fL [facility] MONOCYTES ABSOLUTE AUTO 0.6 [facility] Monocytes/100 WBC (Bld) 6.3 % 1.7 - 12.0 % [facility] NEUTROPHILS ABSOLUTE AUTO 5.6 [facility] Neutrophils/100 WBC (Bld) 57.4 % 43.0 - 75.0 % [facility] Platelet mean volume (Bld) [Entitic vol] 11.9 fL 9.5 - 13.5 fL [facility] EO # 0.4 [facility] TB PLT 306 [facility] TB RBC 4.23 [facility] WBC 9.8 [facility] HCG ( test) Ql (U)o n 07-04-2024 Interpretation and review of laboratory results Abnormal [facility] Preg Test, Ur Positive Negative [facility] Urinalysis macro (dipstick) panel (U)on 07-04-2024 Bilirubin, UA Negative Negative - 4(70) +++ mg/dL [facility] Blood, UA Positive Negative - 50 Nnamdi/mcL [facility] Comment on above: trace-intact Clarity, UA Clear [facility] Color, UA Yellow [facility] Glucose, UA Negative Negative - 1999(110) ++++ mg/dL [facility] Interpretation and review of laboratory results Abnormal [facility] Ketones, UA Negative Negative - 160(16) ++++ mg/dL [facility] Leukocytes, UA Negative Negative - 500+++ Dilcia/mcL [facility] Nitrite, UA Negative Negative - Positive [facility] pH, UA 6 5 - 9 [facility] Protein, UA Negative Negative - 1999(20) ++++ mg/dL [facility] Spec Grav, UA 1.03 1 - 1.03 [facility] Urobilinogen, UA 0.2 0.2 - 12 mg/dL [facility] PREG QUANT HCGon 01-17-2023 HCG QUANT <1 Normal [facility] Comment on above: Performed By: #### P REGQNT #### [facility] [address] [place] [address] Dr. Meghan Vital HCG RANGE SEE BELOW Normal [facility] Comment on above: Result Comment: 5-50 0.2-1 WEEK 50-500 1-2 WEEKS 100-5,000 2-3 WEEKS 500-10,000 3-4 WEEKS 1,000-50,000 4-5 WEEKS 10,000-100,000 5-6 WEEKS 15,000-200,000 6-8 WEEKS 10,000-100,000 2-3 MONTHS Performed By: #### P REGQNT #### [facility] [address] [address] [address] Meghan Vital PROGESTERONEon 01-10-2023 Progesterone 8.9 ng/mL Normal [facility] Comment on above: Result Comment: Foll icular phase 0.1 - 0.9 Luteal phase 1.8 - 23.9 Ovulation phase 0.1 - 12.0 First trimester 11.0 - 44.3 Second trimester 25.4 - 83.3 Third trimester 58.7 - 214.0 Postmenopausal 0.0 - 0.1 Performed By: #### H CGSUB #### [facility] [address] [place] [address] Dr. Meghan Vital PAP ACOG PANEL 2: 30 to 65on 11-30-2022 . . Normal [facility] Comment on above: Result Comment: Perf ormed at: WB Performed By: #### [id number] #### [facility] [address] [place] [address] Dr. Meghan Vital Age Gdln ACOG Testing - [facility] Comment on above: Performed By: #### [id number] #### [facility] [address] [place] [address] Dr. Meghan Vital DIAGNOSIS: Comment [facility] Comment on above: Result Comment: NEGA TIVE FOR INTRAEPITHELIAL LESION OR MALIGNANCY. Performed at: WB Performed By: #### [id number] #### [facility] [address] [place] [address] Dr. Meghan Vital HPV Aptima Positive Abnormal Negative [facility] Comment on above: Result Comment: This nucleic acid amplification test detects fourteen high-risk HPV types (16,18,31,33,35,39,45,51,52,56,58,59,66,68) without differentiation. Performed at: =G Performed By: #### [id number] #### [facility] [address] [place] [address] Dr. Meghan Vital HPV Genotype 16 Negative Normal Negative [facility] Comment on above: Performed By: #### [id number] #### [facility] [address] [place] [address] Dr. Meghan Vital HPV Genotype 18,45 Negative Normal Negative [facility] Comment on above: Performed By: #### [id number] #### [facility] [address] [place] [address] Dr. Meghan Vital HPV Genotype Reflex Comment Normal [facility] Comment on above: Result Comment: Aiyana iqbal, see HPV Genotype results. Performed at: WB Performed By: #### [id number] #### [facility] [address] [place] [address] Dr. Meghan Vital Methodology: Comment [facility] Comment on above: Result Comment: This liquid based ThinPrep(R) pap test was screened with the use of an image guided system. Performed at: WB Performed By: #### [id number] #### [facility] [address] [place] [address] Dr. Meghan Vital Note: Comment Normal [facility] Comment on above: Result Comment: The Pap smear is a screening test designed to aid in the detection of premalignant and malignant conditions of the uterine cervix. It is not a diagnostic procedure and should not be used as the sole means of detecting cervical cancer. Both false-positive and false-negative reports do occur. . Performed at: WB Performed By: #### [id number] #### [facility] [address] [place] [address] Dr. Meghan Vital Performed by: Comment Normal [facility] Comment on above: Result Comment: Rahul Kincaid, Records Management Director ([facility]) Performed at: WB Performed By: #### [id number] #### [facility] [address] [place] [address] Dr. Meghan Vital Specimen adequacy: Comment [facility] Comment on above: Result Comment: Sati sfactory for evaluation. Endocervical and/or squamous metaplastic cells (endocervical component) are present. Performed at: WB Performed By: #### [id number] #### [facility] [address] [place] [address] Dr. Meghan Vital ANTI-MULLERIAN HORMONEon Anti-Mullerian Hormone (AMH) 3.03 ng/mL [facility] Comment on above: Result Comment: For assays employing antibodies, the possibility exists for interference by heterophile antibodies in the samples.1 1.Bailey Dickson Interferences in Immunoassays - still a threat. Clin. Chem. 2000; 46: 9976-0470. This test was developed and its performance characteristics determined by [facility]. It has not been cleared or approved by the Food and Drug Administration. Reference Range: Females 36 - 40y: 0.42 - 8.34 Median 1.69 AMH concentrations of >= 1.06 ng/mL is correlated with a better response to ovarian stimulation, produced more retrievable oocytes and higher odds of live according to Holland et al. Fertility and Sterility. 2010: 94:9492-8895. The current AMH test method correlates with [...] tumor. Performed By: #### H CGSUB #### [facility] [address] [place] [address] Dr. Meghan Vital CBC AUTO DIFFon 11-21-2022 BASO # 0.1 103/ul Normal 0.0-0.1 [facility] Comment on above: Performed By: #### H CGSUB #### [facility] [address] [place] [address] Dr. Meghan Vital Basophils/100 WBC (Bld) 0.8 % Normal 0.2-2.0 [facility] Comment on above: Performed By: #### H CGSUB #### [facility] [address] [place] [address] Dr. Meghan Vital EO # 0.2 103/ul Normal 0.0-0.7 [facility] Comment on above: Performed By: #### H CGSUB #### [facility] [address] [place] [address] Dr. Meghan Vital Eosinophils/100 WBC (Bld) 2.3 % Normal 0.9-7.0 [facility] Comment on above: Performed By: #### H CGSUB #### [facility] [address] [place] [address] Dr. Meghan Vital Erythrocyte distribution width (RBC) [Ratio] 13.3 % Normal 11.0-15.0 [facility] Comment on above: Performed By: #### H CGSUB #### [facility] [address] [place] [address] Dr. Meghan Vital Hematocrit (Bld) [Volume fraction] 42.4 % Normal 36.0-48.0 [facility] Comment on above: Performed By: #### H CGSUB #### [facility] [address] [place] [address] Dr. Meghan Vital Hemoglobin (Bld) [Mass/Vol] 13.6 g/dL Normal 12.0-16.0 [facility] Comment on above: Performed By: #### H CGSUB #### [facility] [address] [place] [address] Dr. Meghan Vital IG # 0.01 10e3/ul Normal 0.00-0.03 [facility] Comment on above: Performed By: #### H CGSUB #### [facility] [address] [place] [address] Dr. Meghan Vital IG % 0.1 % Normal 0.0-0.5 [facility] Comment on above: Performed By: #### H CGSUB #### [facility] [address] [place] [address] Dr. Meghan Vital LYMPH # 3.9 103/ul Critically high 1.2-3.8 [facility] Comment on above: Performed By: #### H CGSUB #### [facility] [address] [place] [address] Dr. Meghan Vital Lymphocytes/100 WBC (Bld) 42.7 % Normal 20.5-60.0 [facility] Comment on above: Performed By: #### H CGSUB #### [facility] [address] [place] [address] Dr. Meghan Vital MANUAL DIFF REQ NO Normal [facility] Comment on above: Performed By: #### H CGSUB #### [facility] [address] [place] [address] Dr. Meghan Vital MCH (RBC) [Entitic mass] 27.4 pg Normal 26.7-34.0 [facility] Comment on above: Performed By: #### H CGSUB #### [facility] [address] [place] [address] Dr. Meghan Vital MCHC (RBC) [Mass/Vol] 32.1 g/dL Normal 29.9-35.2 [facility] Comment on above: Performed By: #### H CGSUB #### [facility] [address] [place] [address] Dr. Meghan Vital MCV (RBC) [Entitic vol] 85.3 fL Normal 81.0-99.0 [facility] Comment on above: Performed By: #### H CGSUB #### [facility] [address] [place] [address] Dr. Meghan Vital MONO # 0.6 103/ul Normal 0.3-0.8 [facility] Comment on above: Performed By: #### H CGSUB #### [facility] [address] [place] [address] Dr. Meghan Vital Monocytes/100 WBC (Bld) 6.1 % Normal 1.7-12.0 [facility] Comment on above: Performed By: #### H CGSUB #### [facility] [address] [place] [address] Dr. Meghan Vital NEUT # 4.3 103/ul Normal 1.4-6.5 [facility] Comment on above: Performed By: #### H CGSUB #### [facility] [address] [place] [address] Dr. Meghan Vital Neutrophils/100 WBC (Bld) 48.0 % Normal 43.0-75.0 [facility] Comment on above: Performed By: #### H CGSUB #### [facility] [address] [place] [address] Dr. Meghan Vital Platelet mean volume (Bld) [Entitic vol] 11.5 fL Normal 9.5-13.5 [facility] Comment on above: Performed By: #### H CGSUB #### [facility] [address] [place] [address] Dr. Meghan Vital PLT 251 103/ul Normal 150-450 [facility] Comment on above: Performed By: #### H CGSUB #### [facility] [address] [place] [address] Dr. Meghan Vital RBC 4.97 106/ul Normal 4.20-5.40 [facility] Comment on above: Performed By: #### H CGSUB #### [facility] [address] [place] [address] Dr. Meghan Vital WBC 9.0 103/ul Normal 4.0-11.0 [facility] Comment on above: Performed By: #### H CGSUB #### [facility] [address] [place] [address] Dr. Meghan Vital FREE T4on 11-21-2022 Free T4 [Mass/Vol] 1.03 ng/dL Normal 0.76-1.46 [facility] Comment on above: Performed By: #### F T4 #### [facility] [address] [place] [address] Dr. Meghan Vital GLYCOHEMOGLOBIN A1Con 2022 ADA RECOMMENDATION SEE BELOW Normal [facility] Comment on above: Result Comment: ADA RECOMMENDED LIMIT 4.0 - 6.0 ADA THERAPEUTIC TARGET < 7.0 ACTION SUGGESTED > 7.0 Performed By: #### H CGSUB #### [facility] [address] [place] [address] Dr. Meghan Vital Glucose [Mass/Vol] 97 mg/dL Normal [facility] Comment on above: Performed By: #### H CGSUB #### [facility] [address] [place] [address] Dr. Meghan Vital HbA1c (Bld) [Mass fraction] 5.0 % Normal 4.5-6.2 [facility] Comment on above: Performed By: #### H CGSUB #### [facility] [address] [place] [address] Dr. Meghan Vital TSHon 11-21-2022 TSH 1.636 uIU/mL Normal 0.358-3.74 0 [facility] Comment on above: Performed By: #### H CGSUB #### [facility] [address] [place] [address] Dr. Meghan Vital PROGESTERONEon 10-12-2022 Progesterone 6.8 ng/mL Normal [facility] Comment on above: Result Comment: Foll icular phase 0.1 - 0.9 Luteal phase 1.8 - 23.9 Ovulation phase 0.1 - 12.0 First trimester 11.0 - 44.3 Second trimester 25.4 - 83.3 Third trimester 58.7 - 214.0 Postmenopausal 0.0 - 0.1 Performed By: #### H CGSUB #### [facility] [address] [place] [address] Dr. Meghan Vital CBC AUTO DIFFon 09-23-2022 BASO # 0.1 103/ul Normal 0.0-0.1 [facility] Comment on above: Performed By: #### C BC #### [facility] [address] [place] [address] Dr. Meghan Vital Basophils/100 WBC (Bld) 1.2 % Normal 0.2-2.0 [facility] Comment on above: Performed By: #### C BC #### [facility] [address] [place] [address] Dr. Meghan Vital EO # 0.2 103/ul Normal 0.0-0.7 [facility] Comment on above: Performed By: #### C BC #### [facility] [address] [place] [address] Dr. Meghan Vital Eosinophils/100 WBC (Bld) 2.4 % Normal 0.9-7.0 [facility] Comment on above: Performed By: #### C BC #### [facility] [address] [place] [address] Dr. Meghan Viatl Erythrocyte distribution width (RBC) [Ratio] 13.1 % Normal 11.0-15.0 [facility] Comment on above: Performed By: #### C BC #### [facility] [address] [place] [address] Dr. Meghan Vital Hematocrit (Bld) [Volume fraction] 38.1 % Normal 36.0-48.0 [facility] Comment on above: Performed By: #### C BC #### [facility] [address] [place] [address] Dr. Meghan Vital Hemoglobin (Bld) [Mass/Vol] 13.4 g/dL Normal 12.0-16.0 [facility] Comment on above: Performed By: #### C BC #### [facility] [address] [place] [address] Dr. Meghan Vital IG # 0.01 10e3/ul Normal 0.00-0.03 [facility] Comment on above: Performed By: #### C BC #### [facility] [address] [place] [address] Dr. Meghan Vital IG % 0.1 % Normal 0.0-0.5 [facility] Comment on above: Performed By: #### C BC #### [facility] [address] [place] [address] Dr. Meghan Vital LYMPH # 3.4 103/ul Normal 1.2-3.8 [facility] Comment on above: Performed By: #### C BC #### [facility] [address] [place] [address] Dr. Meghan Vital Lymphocytes/100 WBC (Bld) 45.2 % Normal 20.5-60.0 [facility] Comment on above: Performed By: #### C BC #### [facility] [address] [place] [address] Dr. Meghan Vital MANUAL DIFF REQ NO Normal [facility] Comment on above: Performed By: #### C BC #### [facility] [address] [place] [address] Dr. Meghan Vital MCH (RBC) [Entitic mass] 27.8 pg Normal 26.7-34.0 [facility] Comment on above: Performed By: #### C BC #### [facility] [address] [place] [address] Dr. Meghan Vital MCHC (RBC) [Mass/Vol] 35.2 g/dL Normal 29.9-35.2 [facility] Comment on above: Performed By: #### C BC #### [facility] [address] [address] [address] Meghan Vital MCV (RBC) [Entitic vol] 79.0 fL Critically low 81.0-99.0 [facility] Comment on above: Performed By: #### C BC #### [facility] [address] [address] [address] Meghan Vital MONO # 0.4 103/ul Normal 0.3-0.8 [facility] Comment on above: Performed By: #### C BC #### [facility] [address] [address] [address] Meghan Vital Monocytes/100 WBC (Bld) 5.3 % Normal 1.7-12.0 [facility] Comment on above: Performed By: #### C BC #### [facility] [address] [place] [address] Dr. Meghan Vital NEUT # 3.4 103/ul Normal 1.4-6.5 [facility] Comment on above: Performed By: #### C BC #### [facility] [address] [place] [address] Dr. Meghan Vital Neutrophils/100 WBC (Bld) 45.8 % Normal 43.0-75.0 [facility] Comment on above: Performed By: #### C BC #### [facility] [address] [place] [address] Dr. Meghan Vital Platelet mean volume (Bld) [Entitic vol] 11.4 fL Normal 9.5-13.5 [facility] Comment on above: Performed By: #### C BC #### [facility] [address] [place] [address] Dr. Meghan Vital PLT 280 103/ul Normal 150-450 [facility] Comment on above: Performed By: #### C BC #### [facility] [address] [place] [address] Dr. Meghan Vital RBC 4.82 106/ul Normal 4.20-5.40 [facility] Comment on above: Performed By: #### C BC #### [facility] [address] [place] [address] Dr. Meghan Vital WBC 7.5 103/ul Normal 4.0-11.0 [facility] Comment on above: Performed By: #### C BC #### [facility] [address] [address] [address] Meghan Vital FREE T4on 09-23-2022 Free T4 [Mass/Vol] 1.17 ng/dL Normal 0.76-1.46 [facility] Comment on above: Performed By: #### H CGSUB #### [facility] [address] [place] [address] Dr. Meghan Vital GLYCOHEMOGLOBIN A1Con 2022 ADA RECOMMENDATION SEE BELOW Normal [facility] Comment on above: Result Comment: ADA RECOMMENDED LIMIT 4.0 - 6.0 ADA THERAPEUTIC TARGET < 7.0 ACTION SUGGESTED > 7.0 Performed By: #### A 1C #### [facility] [address] [place] [address] Dr. Meghan Vital Glucose [Mass/Vol] 100 mg/dL Normal [facility] Comment on above: Performed By: #### A 1C #### [facility] [address] [address] [address] Meghan Vital HbA1c (Bld) [Mass fraction] 5.1 % Normal 4.5-6.2 [facility] Comment on above: Performed By: #### A 1C #### [facility] [address] [place] [address] Dr. Meghan Vital TSHon 09-23-2022 TSH 1.235 uIU/mL Normal 0.358-3.74 0 [facility] Comment on above: Performed By: #### T SH #### [facility] [address] [place] [address] Dr. Meghan Vital PREG QUANT HCGon 07-12-2022 HCG QUANT 1 mIU/mL Normal [facility] Comment on above: Performed By: #### P REGQNT #### [facility] [address] [place] [address] Dr. Meghan Vital HCG RANGE SEE BELOW Normal [facility] Comment on above: Result Comment: 5-50 0.2-1 WEEK 50-500 1-2 WEEKS 100-5,000 2-3 WEEKS 500-10,000 3-4 WEEKS 1,000-50,000 4-5 WEEKS 10,000-100,000 5-6 WEEKS 15,000-200,000 6-8 WEEKS 10,000-100,000 2-3 MONTHS Performed By: #### P REGQNT #### [facility] [id number] Meghan Vital XR HYSTEROSALPINGOGRAMon XR HYSTEROSALPINGOGRAM [...] by: YADIRA BAKER Date: 2022-07-12 12:12 Normal [facility] PROGESTERONEon 06-30-2022 Progesterone 20.9 ng/mL Normal [facility] Comment on above: Result Comment: Foll icular phase 0.1 - 0.9 Luteal phase 1.8 - 23.9 Ovulation phase 0.1 - 12.0 First trimester 11.0 - 44.3 Second trimester 25.4 - 83.3 Third trimester 58.7 - 214.0 Postmenopausal 0.0 - 0.1 Performed By: #### P ROGES #### [facility] [address] [place], [place] [address] Dr. Meghan Vital HCG-BETA SUBUNIT QUANTon hCG,Beta Subunit,Qnt,Serum <1 Normal [facility] Comment on above: Result Comment: Fema le (Non-) 0 - 5 (Postmenopausal) 0 - 8 . Female () Weeks of Gestation 3 6 - 71 4 10 - 750 5 587 - 7208 6 343 - 71050 7 4137 -[phone] 8 17179 -865133 9 96251 -367217 10 54984 -393130 12 06931 -077292 14 85546 - 98895 15 80604 - 34585 16 3199 - 96595 17 8175 - 27057 18 8099 - 00741 Jeremy ECLIA methodology Performed By: #### H CGSUB #### [facility] [address] [address] [address] Meghan Vital HCG-BETA SUBUNIT QUANTon hCG,Beta Subunit,Qnt,Serum <1 Normal [facility] Comment on above: Result Comment: Fema le (Non-) 0 - 5 (Postmenopausal) 0 - 8 . Female () Weeks of Gestation 3 6 - 71 4 10 - 750 5 423 - 6556 6 158 - 10614 7 7026 -935843 8 16767 -018067 9 03469 -617896 10 77855 -961998 12 30227 -724038 14 88770 - 55903 15 58549 - 69434 16 9352 - 27431 17 8175 - 11842 18 8099 - 68419 Jeremy ECLIA methodology Performed By: #### H CGSUB #### [facility] [address] [address] [address] Meghan Vital PROGESTERONEon 02-26-2022 Progesterone <0.1 Normal [facility] Comment on above: Result Comment: Foll icular phase 0.1 - 0.9 Luteal phase 1.8 - 23.9 Ovulation phase 0.1 - 12.0 First trimester 11.0 - 44.3 Second trimester 25.4 - 83.3 Third trimester 58.7 - 214.0 Postmenopausal 0.0 - 0.1 Performed By: #### P PHIL #### [facility] [address] [address] [address] Meghan Vital US PELVIS AND TRANSVAGon [...] YANIRA MICHAEL Date: 2022-02-24 16:57 Normal [facility] Ambulatory Clinical Summaryo n 12-22-2020 Ambulatory Clinical Summary {[id number]}CD:61 4368 Normal [facility] Family Medicine Office/Clini c Noteon 12-22-2020 [...] documented 3008F Office Visit Level 2 Est 26837 2. Tobacco use (Z72.0: Tobacco use) We [...] smoker 1034F Office Visit Level 2 Est 09856 3. Hordeolum externum right lower eyelid (H00.012: Hordeolum externum right lower eyelid) Will treat with bacitracin ointment. May use warm compresses 3-4 x day. FU with PCP if not gradually improving over next 7 days, sooner if significantly spreading erythema, edema, warmth, fever. Patient verbalized understanding of tx plan Ordered: Office Visit Level 2 Est 14744 Orders: erythromycin ophthalmic, 0.5 in, OPTH, QID [...] Family History Family history is negative Normal [facility] Comment on above: Result Comment: Elec [...] methods. Where to find more information ? [place] [employer]: www.lung.org ? [place] [employer]: www.cancer.org Summary ? Smoking cigarettes [...] 09/21/2005 Document Revised: 11/15/2018 Document Reviewed: 08/18/2017 [employer] Patient Education ? 2020 [employer]. [facility] Provider Letteron 12-22-2020 Provider Letter (Inserted Image. Mary ble to display) December 22, 2020 FEDERER, FARTUN L [address] [place] [phone] FARTUN RODRÍGUEZ 1985 To Whom It May Concern, Please excuse above patient from work. 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 Cigarettes, Yes, 11/17/2020 [facility] Comment on above: Result Comment: Elec [...] to help relieve symptoms, such as: ? Ctbl-ifp-dfpjlix cold medicines. ? Cough suppressants. Coughing is [...] other clear broths. General instructions ? Take ptxk-zrc-toptxgj and prescription medicines only as told by [...] and water are not available, use hand medical radiation dosimetrist. ? Avoid touching your mouth, face, eyes, [...] common infecti (more content not included)... Normal [facility] Provider Letteron 11-17-2020 Provider Letter (Inserted Image. Mary ble to display) November 17, 2020 FARTUN RODRÍGUEZ [address] [place] [phone] FARTUN RODRÍGUEZ 1985 To Whom It May Concern, Please excuse above patient from work. Date of Illness: From: 11/17/2020 To: 11/18/2020 May Return to Work On:11/19/2020 Comments: Patient above was seen at [facility] on 11/17/2020. Sincerely, [facility] [address] [place] [address] [facility] Provider Letteron 09-22-2020 Provider Letter (Inserted Image. Mary ble to display) September 22, 2020 FARTUN RODRÍGUEZ [address] [place] [phone] FARTUN RODRÍGUEZ 1985 To Whom It May Concern, Please excuse above patient from work. Date of Illness: From: 09/22/2020 May Return to Work On:09/23/2020 Comments: The above patient may return back to work on the above date. Sincerely, [facility] [address] [place] [address] [facility] SURGICAL PATH REPORTon 07-31 SURGICAL PATH REPORT [facility] Department of Pathology [address] [place], [place] [phone] Name: FARTUN RODRÍGUEZ : 1985 [facility] [id number] Number: Gender: Female Location: [facility] Admit 34 years Attending FERMÍN HURTADO Age: Provider: Ordering FERMÍN HURTADO Provider: Consulting: Surgical Pathology Report ACCESSION: COLLECTED DATE/TIME: RECEIVED DATE/TIME: PATHOLOGIST: [id number] 07/30/2020 13:19 EST 07/30/2020 13:19 SHADE DILL MD Final Diagnosis Report for [facility] [place] [employer]: - CHORION[employer] VILLI. [...] cm. There are no grossly identifiable parts. 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 MP/ekaterina 07/30/2020 Tissue pathology report for: [facility], [address] [place] [address]; Print Date/ 07/31/2020 15:05 EST Number: Time: [facility] Department of Pathology [address] [place] [phone] Name: FARTUN RODRÍGUEZ : 1985 [facility] [id number] Number: Gender: Female Location: [facility] Admit 34 years Attending FERMÍN HURTADO Age: Provider: Ordering FERMÍN HURTADO Provider: Consulting: Surgical Pathology Report ACCESSION: COLLECTED DATE/TIME: RECEIVED DATE/TIME: PATHOLOGIST: [id number] 07/30/2020 13:19 EST 07/30/2020 13:19 EST SHADE MULLER MD Gross Description PATHOLOGY SERVICES PROVIDED BY [employer] (CLIA #[id number]) in cooperation with [facility] at [address] [place] [address] (CLIA #[id number]) Codes CPT CODE: 98970 Print Date07/31/2020 15:05 EST Number: Time: Normal [facility] Comment on above: Performed By: #### 9 [id number] #### [facility] Services [address] [id number] Sand Filler: Shade Muller MD Consenton 05-29-2020 Consent [id number]:127 [facility] Registrationon 05-29-2020 Registration [id number]:127 [facility] Influenza A,Bon 11-08-2018 Influenza A, Rapid Ag Negative Normal Negative [facility] Comment on above: Performed By: #### [id number] #### [facility] [address] [place] [address] Influenza B, Rapid Ag Negative Normal Negative [facility] Comment on above: Performed By: #### 5 [id number] #### [facility] [address] [place] [address] Urinalysis with Reflex Cultu reon 11-08-2018 Appearance Nom (U) Clear Normal Clear [facility] Comment on above: Performed By: #### U ARFX #### [facility] [address] [place] [address] Ascorbic Acid Negative Normal Negative [facility] Comment on above: Performed By: #### U ARFX #### [facility] [address] [place] [address] Automated Urine Microscopy Not indicated Normal [facility] Comment on above: Performed By: #### U ARFX #### [facility] [address] [place] [address] Bilirubin mass conc Negative Normal Negative [facility] Comment on above: Performed By: #### U ARFX #### [facility] [address] [place] [address] Blood Negative Normal Negative [facility] Comment on above: Performed By: #### U ARFX #### [facility] [address] [place] [address] Color Nom (U) Yellow Normal [facility] Comment on above: Performed By: #### U ARFX #### [facility] [address] [place] [address] Glucose mass conc 50 mg/dL Abnormal Negative [facility] Comment on above: Performed By: #### U ARFX #### [facility] [address] [place] [address] Ketones Ql (U) Negative Normal Negative [facility] Comment on above: Performed By: #### U ARFX #### [facility] [address] [place] [address] Leukocytes Esterase Negative Normal Negative [facility] Comment on above: Performed By: #### U ARFX #### [facility] [address] [place] [address] Nitrite Ql (U) Negative Normal Negative [facility] Comment on above: Performed By: #### U ARFX #### [facility] [address] [place] [address] pH (Bld) 5.0 Normal 5.0-9.0 [facility] Comment on above: Performed By: #### U ARFX #### [facility] [address] [place] [address] Protein mass conc (U) Negative Normal Negative [facility] Comment on above: Performed By: #### U ARFX #### [facility] [address] [place] [address] Specific gravity Relative Density (U) 1.026 Normal 1.003-1.03 5 [facility] Comment on above: Performed By: #### U ARFX #### [facility] [address] [place] [address] Urobilinogen Qn (U) <2.0 Normal Negative [facility] Comment on above: Result Comment: Due to a manufacturing issue, low positive urobilinogen results may be falsely positive. Correlate with urine bilirubin and additional clinical/laboratory findings to assess the risk of hemolytic anemia or liver disease. If clinically indicated, repeat testing with an alternate method is available by contacting the laboratory within 24 hours. Performed By: #### U ARFX #### [facility] [address] [place] [address] STREP GROUP A AG QUALon 08-29 STREP GROUP A AG QUAL STREP GROUP A AG Q UAL GROUP A STREP NEGATIVE FOR STREPTOCOCCUS GROUP A ANTIGEN THROAT CULTURE: REFERRED TO [facility] FOR CULTURE CONFIRMATION CULTURE RESULT: CULTURE NEGATIVE FOR BETA STREP GROUP A Normal [facility] Comment on above: Performed By: #### M STREPA ####[facility] [id number] [place] [address] ED Provider Reporton 018 ED Provider Report [facility] [place], [place] [address]Xvdbgbc Name: FARTUN RODRÍGUEZ : [birth year]Acct #: [id number] Unit #: [id number] ER Arrival Date: 09/21/17 ER Physician: Yoshi [...] illicit drug usePast Social HistorySmoking Status:FORMER SMOKERTobacco UseCIGARETTESPacks/Wwf7Aqnc :LESS THAN 1 YEAR AGOReview of SystemsReview [...] Resp B/P B/P Pulse O2 O2 Flow SoK2Nmen Ox Delivery Rate09/21 1712 36.5 83 18 [...] to follow-up with PCP.Disposition DecisionDischargeDispositio n Date09/21/17Decision [id number] obiologyDate/Time Procedure - StatusSource Yptdpz66/25 1745 Group A Streptococcus Screen (BETHANY) - [...] Cali Gregory P. DO 09/22/17 1146 Normal [facility] Vital Signs Date Time Vital Sign Value Performing Clinician Facility 11-12-2024 10:00-0400 Body mass index (BMI) [Ratio] 30.18 kg/m2 FermínGalleon Work Phone: [facility] 11-12-2024 10:00-0400 Body weight 79.74 kg FermínGalleon Work Phone: [facility] 11-12-2024 10:00-0400 Diastolic blood pressure 72 mm[Hg] FermínGalleon Work Phone: [facility] 11-12-2024 10:00-0400 Systolic blood pressure 100 mm[Hg] FermínGalleon Work Phone: [facility] 10-29-2024 10:05-0500 Body mass index (BMI) [Ratio] 31.21 kg/m2 Cubicl Work Phone: [facility] 10-29-2024 10:05-0500 Body weight 82.46 kg Fermín Bryant DO Work Phone: [facility] 10-29-2024 10:05-0500 Diastolic blood pressure 64 mm[Hg] Fermín Bryant DO Work Phone: [facility] 10-29-2024 10:05-0500 Systolic blood pressure 100 mm[Hg] Fermín Bryant DO Work Phone: [facility] 10-03-2024 11:32-0500 Body mass index (BMI) [Ratio] 30.04 kg/m2 Fermín Bryant DO Work Phone: [facility] 10-03-2024 11:32-0500 Body weight 79.38 kg Fermín Bryant DO Work Phone: [facility] 10-03-2024 11:32-0500 Diastolic blood pressure 68 mm[Hg] Fermín Bryant DO Work Phone: [facility] 10-03-2024 11:32-0500 Systolic blood pressure 120 mm[Hg] Fermín Bryant DO Work Phone: [facility] 09-06-2024 10:13-0500 Body weight 77.11 kg Ermelinda Nichols MD Work Phone: [facility] 09-04-2024 15:21-0500 Body mass index (BMI) [Ratio] 28.8 kg/m2 Fermín Bryant DO Work Phone: [facility] 09-04-2024 15:21-0500 Body weight 76.11 kg Fermín Bryant DO Work Phone: [facility] 09-04-2024 15:21-0500 Diastolic blood pressure 64 mm[Hg] Fermín Bryant DO Work Phone: [facility] 09-04-2024 15:21-0500 Systolic blood pressure 100 mm[Hg] Fermín Bryant DO Work Phone: [facility] 07-31-2024 14:58-0500 Body mass index (BMI) [Ratio] 27.7 kg/m2 Fermín Bryant DO Work Phone: [facility] 07-31-2024 14:58-0500 Body weight 73.21 kg Fermín Bryant DO Work Phone: [facility] 07-31-2024 14:58-0500 Diastolic blood pressure 62 mm[Hg] Fermín Bryant DO Work Phone: [facility] 07-31-2024 14:58-0500 Systolic blood pressure 100 mm[Hg] Fermín Bryant DO Work Phone: [facility] 07-04-2024 15:55-0500 Body mass index (BMI) [Ratio] 27.48 kg/m2 [facility] 07-04-2024 15:55-0500 Body weight 72.63 kg [facility] 07-04-2024 15:55-0500 Diastolic blood pressure 60 mm[Hg] [facility] 07-04-2024 15:55-0500 Systolic blood pressure 110 mm[Hg] [facility] 05-31-2023 09:00-0400 Body height 162.56 cm Everett Oliveros Other [employer] Other 05-31-2023 09:00-0400 Body mass index (BMI) [Ratio] 24.54 kg/m2 Everett Oliveros Other [employer] Other 05-31-2023 09:00-0400 Body weight 64.86 kg Everett Oliveros Other [employer] Other 05-31-2023 09:00-0400 Diastolic blood pressure 65 mm[Hg] Everett Oliveros Other [employer] Other 05-31-2023 09:00-0400 Systolic blood pressure 98 mm[Hg] Everett Oliveros Other [employer] Other 11-08-2022 16:15-0400 Body height 162.56 cm Everett Oliveros Other [employer] Other 11-08-2022 16:15-0400 Body mass index (BMI) [Ratio] 25.4 kg/m2 Everett Oliveros Other [employer] Other 11-08-2022 16:15-0400 Body temperature 97.4 [degF] Everett Oliveros Other [employer] Other 11-08-2022 16:15-0400 Body weight 67.13 kg Everett Oliveros Other [employer] Other 11-08-2022 16:15-0400 Diastolic blood pressure 74 mm[Hg] Everett Oliveros Other [employer] Other 11-08-2022 16:15-0400 SaO2% (BldA) [Mass fraction] 99 % Everett Oliveros Other [employer] Other 11-08-2022 16:15-0400 Systolic blood pressure 120 mm[Hg] Everett Oliveros Other [employer] Other 06-12-2022 12:15-0400 Body height 162.56 cm Yolis James Other [employer] Other 06-12-2022 12:15-0400 Body mass index (BMI) [Ratio] 25.74 kg/m2 Yolis James Other [employer] Other 06-12-2022 12:15-0400 Body temperature 98.1 [degF] Yolis James Other [employer] Other 06-12-2022 12:15-0400 Body weight 68.04 kg Yolis James Other [employer] Other 06-12-2022 12:15-0400 Diastolic blood pressure 61 mm[Hg] Yolis James Other [employer] Other 06-12-2022 12:15-0400 Respiratory rate 18 /min Yolis James Other [employer] Other 06-12-2022 12:15-0400 SaO2% (BldA) [Mass fraction] 100 % Yolis James Other [employer] Other 06-12-2022 12:15-0400 Systolic blood pressure 108 mm[Hg] Yolis Jacob Other [employer] Other Encounters Encounter Date Encounter Type Care [...] Nichols MD Work Phone: Maternal- Medicine at [facility] Comment on above: History of bariatric surgery Start: 10-09-2024 End: 10-09-2024 Clinisync Result Encounter Fermín Bryant DO Work Phone: [facility] External Department Unsolicited Start: 10-09-2024 End: 10-09-2024 Clinisync Result Encounter Fermín Bryant DO Work Phone: [facility] External Department Unsolicited Start: 10-08-2024 End: 10-08-2024 [facility] Start: 10-03-2024 End: 10-03-2024 Bamboo flowsheet Fermín [...] Jazmine Black RN Maternal- Medic ine at [facility] Comment on above: resulting from assisted reproductive technology, second trimester (Primary Dx); Low lying placenta nos or without hemorrhage, second trimester; Advanced maternal age in multigravida, second trimester Start: 09-06-2024 End: 09-06-2024 Office consultation new/estab patient 60 min Ermelinda Nichols MD Work Phone: Maternal- Medicine at [facility] Comment on above: resulting from assisted reproductive technology, second trimester (Primary Dx); 21 weeks gestation of ; History of bariatric surgery; Advanced maternal age, 1st , second trimester; Low lying placenta nos or without hemorrhage, second trimester Start: 09-06-2024 End: 09-06-2024 ambulatory FERMÍN HURTADO [facility] Start: 09-04-2024 End: 09-04-2024 flow sheet Fermín Bryant DO Work Phone: [facility] Comment on above: Second trimester pre gnancy; 21 weeks gestation of Start: 09-04-2024 End: 09-04-2024 ambulatory FERMÍN RIZZOO Not Available Start: 09-04-2024 End: 09-04-2024 Bamboo flowsheet Fermín Bryant DO Work Phone: [facility] Start: 09-04-2024 End: 09-04-2024 Bamboo flowsheet Fermín Bryant DO Work Phone: [facility] Start: 08-09-2024 End: 08-09-2024 Chart abstracting Ermelinda Nichols MD Work Phone: Maternal- Medicine at [facility] Start: 08-08-2024 End: 08-11-2024 Clinisync Result Encounter Fermín Bryant DO Work Phone: [facility] External Department Unsolicited Start: 08-08-2024 End: 08-11-2024 Clinisync Result Encounter Fermín Bryant DO Work Phone: [facility] External Department Unsolicited Start: 07-31-2024 End: 07-31-2024 Patient encounter procedure Fermín Bryant DO Work Phone: [facility] Healthcare Start: 07-31-2024 End: 07-31-2024 Periodic preventive med est patient 18-39 yrs Fermín Bryant DO Work Phone: [facility] Comment on above: 16 weeks [...] 05-31-2023 End: 05-31-2023 ambulatory Everett Oliveros Other [employer] Other Start: 05-31-2023 Office outpatient vi sit 15 minutes Everett Oliveros [facility] Start: 01-17-2023 End: 01-25-[address] FERMÍN HURTADO . Facility:[facility] Start: 01-09-2023 End: 01-10-[address] FERMÍN HURTADO . Facility:[facility] Start: 11-26-2022 Letter encounter Luisa Ge STRE[address] LIGHT SERVICER HELPER-VEGETABLE CANNER Work Phone: [facility] Start: 11-21-2022 End: 11-21-[address] FERMÍN HURTADO . Facility:[facility] Start: 11-21-2022 End: 11-22-[address] FERMÍN HURTADO . Facility:[facility] Start: 11-08-2022 End: 11-08-2022 ambulatory Everett Oliveros Other [employer] Other Start: 11-08-2022 Office outpatient vi sit 15 minutes Everett Oliveros [facility] Start: 10-11-2022 End: 10-12-[address] FERMÍN HURTADO . Facility:[facility] Start: 09-23-2022 End: 09-24-[address] FERMÍN HURTADO . Facility: Start: 09-04-2022 Letter encounter Luisa Ge STRE[address] LIGHT SERVICER HELPER-VEGETABLE CANNER Work Phone: [facility] Start: 07-12-2022 End: 07-12-[address] FERMÍN HURTADO . Facility:[facility] Start: 06-29-2022 End: 06-30-[address] FERMÍN HURTADO . Facility:[facility] Start: 06-12-2022 End: 06-12-2022 ambulatory Yolis James Other [employer] Other Start: 06-12-2022 Office outpatient ne w 20 minutes Yolis James [facility] Start: 05-05-[address] FERMÍN HURTADO . Facili ty:[facility] Start: 04-27-2022 End: 04-28-[address] FERMÍN HURTADO . Facility:[facility] Start: 03-23-2022 End: 03-24-[address] FERMÍN HURTADO . Facility:[facility] Start: 02-25-2022 End: 02-26-[address] FERMÍN HURTADO . Facility:[facility] Start: 02-24-2022 End: 02-25-[address] NONE LISTED REQUEST Facility: Start: 05-11-2020 ambulatory Sw[facility] DANIEL [facility] Start: 11-07-2018 End: 11-08-2018 Emergency department patient visit NO FAMILY DOCTOR NO FAMILY DOCTOR Facility:[facility] Start: 09-21-2017 Emergency department patient visit No Family Physician Facility:[facility] Procedures Date Procedure Procedure Detail Performing Clinician [...] in Cervix by Cyto stain Luisa Ge APRN-VEGETABLE CANNER Work Phone: Plan of Treatment Date Care Activity Detail Author Start: 2036 Shingles (RZV) Vacci ne (1 of 2) Shingles (RZV) [facility] Start: 07-31-2027 Screening for malign ant neoplasm of cervix Pap Smear [facility] Start: 09-09-2025 End: 09-09-2025 US MFM with or without consult US MFM with or without consult Imaging Routine resulting from assisted reproductive technology, second trimester Low lying placenta nos or without hemorrhage, second trimester Advanced maternal age in multigravida, second trimester Expected: 09/09/2025 (Approximate), [facility] Comment on above: Expected: 09/09/2025 (Approximate), Expires: 09/09/2025 Start: 09-06-2025 Tobacco Screening Tobacco Screening [facility] Start: 11-26-2024 End: 11-26-2024 Patient encounter procedure 11/26/2024 9:10 AM EDT Routine [facility] [address] [place] [address] Fermín Hurtado, DO [address] [place], [place] [address] [address] [facility] Start: 11-19-2024 Subsequent hospital visit by physician 11/19/2024 1:00 PM EDT Hospital Encounter [facility] - Ultrasound [address] [place] [address] [facility] - Ultrasound Start: 11-12-2024 End: 11-12-2025 US [...] Routine [facility] [address] [place] [id number] Fermín Hurtado, [facility] [place] [address] [facility] Start: 10-29-2024 End: 10-29-2024 Patient encounter procedure [facility] Comment on above: Arrived Start: 10-08-2024 End: 10-08-2024 Patient encounter procedure 10/08/2024 2:15 PM EST Appointment [facility] - Ultrasound [address] [place] [address] [facility] - Ultrasound Start: 10-03-2024 End: 10-03-2025 CBC panel - Blood by Automated count CBC Lab Routine Diabetes mellitus screening Expected: 10/03/2024 (Approximate), Expires: 10/03/2025 [facility] Work Phone: Comment on above: Expected: 10/03/2024 (Approximate), Expires: 10/03/2025 Start: 10-03-2024 End: 10-03-2024 Patient encounter procedure 10/03/2024 11:10 AM EST Routine [facility] [address] [place] [id number] Fermín Hurtado, [address] [place] [address] Arrived [facility] Comment on above: Arrived Start: 10-03-2024 End: 10-03-2024 Patient encounter procedure 10/03/2024 8:50 AM EST Routine [facility] [address] [place] [address] Fermín Hurtado, [address] [place] [address] [facility] Start: 09-06-2024 End: 09-06-2024 Patient encounter procedure [facility] Start: 09-04-2024 End: 09-04-2024 Patient encounter procedure [facility] Comment on above: Arrived Start: 07-31-2024 End: 07-31-2024 Patient encounter procedure [facility] Comment on above: Arrived Start: 07-31-2024 End: 10-01-2024 Alpha fetoprotein, maternal Alpha fetoprotein, maternal Lab Routine Second trimester Well woman exam with routine gynecological exam Expected: 07/31/2024 (Approximate), Expires: 10/01/2024 [facility] Healthcare Comment on above: Expected: 07/31/2024 (Approximate), [...] first trimester Expected: 07/04/2024 (Approximate), Expires: 07/04/2025 [facility] Healthcare Comment on above: Expected: 07/04/2024 (Approximate), Expires: 07/04/2025 Start: 04-28-2024 Influenza vaccination Influenza Vacc ine [facility] Start: 06-26-2023 Tetanus vaccination Tetanus (T d or Tdap) Booster [facility] Start: 07-08-2022 Screening for malign ant neoplasm of cervix Pap Smear [facility] Start: 05-28-2022 Influenza vaccination Influenza Vacc ine (#1) [facility] Start: 2007 Screening for malign ant [...] COVID-19 [facility]ine (#[facility]) [facility] Screening for malign ant neoplasm of breast Mammography shared decision making (35 through 39 years) [facility] Bacteria identified in Urine by Culture Urine culture Microbiology Routine Missed menses Ordered: 07/04/2024 [facility] Comment on above: Ordered: 07/04/2024 CBC W Auto Different ial panel - Blood CBC and differential Lab Routine Missed menses , unspecified gestational age Ordered: 07/04/2024 [facility] Comment on above: Ordered: 07/04/2024 CHLAMYDIA TRACHOMATI S (GENITO/STI) CHLAMYDIA TRACHOMATIS (GENITO/STI) Lab Routine Exposure to STD Ordered: 07/31/2024 [facility] Comment on above: Ordered: 07/31/2024 Cytology Cervical or vaginal smear or scraping study Pap Smear Pathology and Cytology Routine Well woman exam with routine gynecological exam Ordered: 07/31/2024 [facility] Comment on above: Ordered: 07/31/2024 Hemoglobin A1c/Hemoglobin.total in Blood Hemoglobin A1c Lab Routine Missed menses , unspecified gestational age Ordered: 07/04/2024 [facility] Comment on above: Ordered: 07/04/2024 Hepatitis B virus surface Ag [Presence] in Serum or Plasma by Immunoassay Hepatitis B surface antigen Lab Routine Missed menses , unspecified gestational age Ordered: 07/04/2024 [facility] Comment on above: Ordered: 07/04/2024 Hepatitis C virus Ab [Presence] in Serum or Plasma by Immunoassay Hepatitis C antibody Lab Routine Missed menses , unspecified gestational age Ordered: 07/04/2024 [facility] Comment on above: Ordered: 07/04/2024 HIV-1/HIV-2 antigen/antibody combination immunoassay HIV-1 and HIV-2 antibodies Lab Routine Missed menses , unspecified gestational age Ordered: 07/04/2024 [facility] Comment on above: Ordered: 07/04/2024 Human papilloma viru s DNA [Presence] in Unspecified specimen by Probe with amplification HPV DNA probe, amplified Microbiology Routine Well woman exam with routine gynecological exam Ordered: 07/31/2024 [facility] Comment on above: Ordered: 07/31/2024 Neisseria gonorrhoea e DNA [Presence] in Unspecified specimen by SANJU with probe detection Neisseria gonorrhea DNA probe, direct Lab Routine Exposure to STD Ordered: 07/31/2024 [facility] Comment on above: Ordered: 07/31/2024 Reagin Ab [Presence] in Serum by RPR RPR Lab Routine Missed menses , unspecified gestational age Ordered: 07/04/2024 [facility] Comment on above: Ordered: 07/04/2024 Rubella antibody, IgG Rubella an tibody, IgG Lab Routine Missed menses , unspecified gestational age Ordered: 07/04/2024 [facility] Comment on above: Ordered: 07/04/2024 SURESWAB(R) ADVANCED VAGINITIS PLUS, TMA SURESWAB(R) ADVANCED VAGINITIS PLUS, TMA Pathology and Cytology Routine Vaginal discharge Ordered: 07/31/2024 [facility] Work Phone: Comment on above: Ordered: 07/31/2024 Immunizations Immunization Date Immunization Notes Care Provider Ubaldo araujo 10-23-2013 tuberculin skin test ; purified protein derivative solution, intradermal Luisa Joo STRE[address] LIGHT SERVICER HELPER-VEGETABLE CANNER Work Phone: [facility] 06-26-2013 tetanus toxoid, redu thalia diphtheria toxoid, and acellular pertussis vaccine, adsorbed Luisa Joo STRE[address] LIGHT SERVICER HELPER-VEGETABLE CANNER Work Phone: [facility] 05-08-2013 human papilloma viru s vaccine, quadrivalent Luisa Ross STRE[address] LIGHT SERVICER HELPER-VEGETABLE CANNER Work Phone: [facility] 01-10-2013 human papilloma viru s vaccine, quadrivalent Luisa Ross ST[address] LIGHT SERVICER HELPER-VEGETABLE CANNER Work Phone: [facility] 11-15-2012 human papilloma viru s vaccine, quadrivalent Luisa Ross ST[address] LIGHT SERVICER HELPER-VEGETABLE CANNER Work Phone: [facility] 10-16-2010 tetanus toxoid, redu thalia diphtheria toxoid, and acellular pertussis vaccine, adsorbed Luisa Ross ST[address] LIGHT SERVICER HELPER-VEGETABLE CANNER Work Phone: [facility] Payers Date Payer Category Payer [facility] [id number] 2023 [facility] Managed Care - Other [id number] 2023 [place] [id number] [id number] 2013 Medicaid [id number] 1986 Unknown [id number] 2.16.840.1.568819.3.579.2. 355 1986 Unknown [id number] 2.16.840.1.645900.3.579.2. 732 1986 Unknown [id number] 2.16.840.1.946960.3.579.2. 593 1986 Unknown [id number] 2.16.840.1.488803.3.579.2. 593 1986 Unknown [id number] 2.16.840.1.149280.3.579.2. 593 1986 Unknown [id number] 2.16.840.1.269760.3.579.2. 593 1986 Unknown [id number] 2.16.840.1.332830.3.579.2. 593 1986 Unknown [id number] 2.16.840.1.035725.3.579.2. 593 1986 Unknown [id number] 2.16.840.1.153110.3.579.2. 593 1986 Unknown [id number] 2.16.840.1.123335.3.579.2. 593 1986 Unknown [id number] 2.16.840.1.902115.3.579.2. 593 1986 Unknown [id number] 2.16.840.1.235970.3.579.2. 593 1986 Unknown [id number] 2.16.840.1.383496.3.579.2. 593 1986 Unknown [id number] 2.16.840.1.015806.3.579.2. 593 1986 Unknown [id number] 2.16.840.1.377981.3.579.2. 593 1986 Unknown [id number] 2.16.840.1.648825.3.579.2. 1286 1986 Unknown [id number] 2.16.840.1.613418.3.579.2. 1286 1986 Unknown [id number] 2.16.840.1.922124.3.579.2. 1286 1986 Unknown [id number] 2.16.840.1.777989.3.579.2. 1259 1986 Unknown [id number] 2.16.840.1.945092.3.579.2. 1259 1986 Unknown [id number] 2.16.840.1.919890.3.579.2. 1259 1986 Unknown [id number] 2.16.840.1.941553.3.579.2. 1259 1986 Unknown [id number] 2.16.840.1.789887.3.579.2. 1259 1986 Unknown [id number] 2.16.840.1.531705.3.579.2. 1259 1959 Medicaid [id number] 1958 Medicaid [id number] 2.16.840.1.921864.19 Social History Date Type Detail Facility Start: 09-06-2024 Sex Assigned At [facility] Other Start: 10-17-2017 Tobacco smoking status UTIS Ex-smoker [facility] End: 03-28-2017 History of tobacco use Current smoker [facility] End: 03-28-2017 History of tobacco use Cigarette Smoker [facility] Start: 10-17-2017 End: 09-06-2024 Cigarettes smoked current (pack per day) - Reported 0.5 [facility] Start: 10-17-2017 End: 09-06-2024 Tobacco use and exposure Smokeless tobacco non-user [facility] Start: 04-17-2020 Alcohol intake Current drinker of alcohol (finding) [facility] Start: 10-17-2017 Tobacco Comment Patient quit March 2017 [facility] Start: 1985 Sex Assigned At Female [facility] Tobacco smoking stat us UTIS Tobacco smoking consumption unknown [facility] Start: 04-20-2024 [facility] Start: 06-03-2023 Gender identity Identifies as female gender (finding) [facility] Start: 06-03-2023 Sexual orientation Heterosexual (finding) [facility] Start: 09-06-2024 Tobacco smoking status NHIS Never smoked tobacco [facility] Start: 09-06-2024 Alcoholic beverage intake Ex-drinker (finding) [facility] Within the past 12 months we worried whether our food would run out before we got money to buy more. Never True [facility] Start: 1986 Sex assigned at Not on file [facility] Start: 08-06-2024 Sex Female (finding) [facility] Goals Date Patient Goal Desired Activity /State Personal health goal Clinical Notes 06-12-2022 to 11-12-2024 Patricia Carter, RISK MANAGEMENT PROFESSIONAL - 11/12/2024 10:00 AM EDTSnettie Gentile, [facility] [address] - 10/29/2024 10:10 AM ESTSnettie Gentile, [facility] [address] - 10/03/2024 11:10 AM Sara Del Castillo, [facility] - 09/06/2024 11:00 AM EST Note Date & Type Note Facility 11-12-2024 History of Present illness Narrative Reason for Appointment: Patient ID: Fartun Hall is a 39 y.o. female who presents for Routine Visit Patient presents today for Return OB appointment. MEDICATIONS Current Outpatient Medications Medication Instructions aspirin 81 mg, Daily Continuous Glucose Lens Mounter (Dexcom G6 cyber security instructor) device Use as instructed Continuous Glucose Transmitter [...] nursing note reviewed. Exam conducted with a ostrich farmer present. Vitals: Estimated body mass index is [...] Fermín Hurtado DO documented in this encounter [facility] 10-29-2024 History of Present illness Narrative Reason for Appointment: Patient ID: Fartun Hall is a 39 y.o. female who presents for Routine Visit Patient presents today for Return OB appointment. MEDICATIONS Current Outpatient Medications Medication Instructions aspirin 81 mg, Daily Continuous Glucose Lens Mounter (Dexcom G6 cyber security instructor) device Use as instructed Continuous Glucose Sensor [...] nursing note reviewed. Exam conducted with a ostrich farmer present. Vitals: Estimated body mass index is [...] noted bilaterally. Patient is currently still seeing [facility] for growth scan/NST/BPP. Patient to return to clinic in 2 weeks and then she will be able to decide if she would like to have NST/BPPs done locally or continue with [facility]. Patient voiced that she is unabl eto put her work shoes on due to swelling and will be taking off work midway through this month. Documented by Trupti Gentile LPN on behalf of: Fermín Hurtado DO documented in this encounter [facility] 10-03-2024 History of Present illness Narrative Reason for Appointment: Patient ID: Fartun aHll is a 39 y.o. female who presents [...] nursing note reviewed. Exam conducted with a ostrich farmer present. Vitals: Estimated body mass index is [...] obtained supplies she will reach out to Community Fund[employer] to have device placed on arm, patient was given blood sugar logs to bring to next appointment for review once device is placed. Documented by Trupti Gentile LPN on behalf of: Fermín Hurtado DO documented in this encounter [facility] 09-06-2024 History of Present illness Narrative [...] female Have you been seen here at [facility] in a previous ? No Recent ER visits or hospitalizations? No Bring blood sugar log or meter with you today? (Please bring them with you for every visit at [facility]) n/a Flu vaccine (Jun-October)? No Any concerns [...] Allergies CURRENT MEDICATIONS: Current Outpatient Medications: ferrous [id number] C-folic acid (FOLTRIN) 110-0.5 mg capsule, Take 1 capsule by mouth every morning before breakfast., Disp: , Rfl: [id number] acid ( 19) 29 mg iron- 1 [...] TESTS AND ULTRASOUND REPORTS: Referral records and [facility] chart were reviewed Pertinent Ultrasound findings are [...] those pregnancies occurring naturally (1.3% vs 0.7%). [facility] suggest that echocardiogram be offered to [...] aspirin vs 10.3% no aspirin, p=0.45) (PMBID: [id number]). Given well-established benefits baby aspirin for the prevention of preeclampsia, I recommend initiating baby aspirin even in the setting of history of Alberto-en-Y surgery. PPI prophylaxis is additionally recommended by bariatric surgeons, 20 mg daily ordered today in addition to aspirin 81 mg daily. Micronutrient Dosing Recommendations: Calcium: recommend 1000-1200mg daily; if deficient, recommend 1800-25747 mg PO daily in divided doses Vitamin [...] ultrasound, attempt completion in 4-6 weeks at [facility] Repeat growth ultrasound along with transvaginal ultrasound to re-evaluate placental location in 11 weeks at 32 weeks gestation, through [facility] Repeat growth ultrasound at 36-37 weeks gestation [...] patient is in complete care of her civil preparedness officer. Patient does have ultrasound scheduled with us. Thank you for allowing me to participate in the care of Fartun Hall. If there any questions please do not hesitate to contact us. Ermelinda Nichols MD Maternal- Medicine [facility] [address] 1[address] [place] [address] [facility], the CDC, and other organizations representing maternal and public health professionals recommend that , , and lactating people and those considering receive the COVID-19 vaccination. Vaccination is the best method to reduce maternal and complications of SARS-CoV-2 infection. This document was created with [employer] technology. Though I make every effort to review the dictation as it is transcribed, on occasion the spoken word can be misinterpreted by the technology leading to inappropriate words, phrases, or sentences. This note is addressed to the requesting provider as a consultation for clinical guidance. Specific medical abbreviations are occasionally used and those are generally approved by the [place]?Board of?Obstetrics and?Gynecology?as well as?Ruth ware abbreviations. The above plan of care was based solely on the diagnoses for which a consultation was requested. ?More frequent testing may be indicated based on her other medical/obstetrical conditions. The management of other or medical conditions is beyond the scope of requested consultation and will continue to be followed by the primary civil preparedness officer or primary care provider. Note to patient: [...] of the practitioner. documented in this encounter [employer] 09-04-2024 History of Present illness Narrative Reason [...] nursing note reviewed. Exam conducted with a ostrich farmer present. Vitals: Estimated body mass index is [...] Delivery: 01/12/25. Pt having anatomy scan at [facility] on Monday. Pt has complaints of dry itchy ears. Drops called into pharmacy. Pt to return in 4 weeks for scheduled OB appt. Documented by Patricia Carter LPN on behalf of: Fermín Hurtado DO documented in this encounter [facility] 07-31-2024 History of Present illness Narrative [...] nursing note reviewed. Exam conducted with a ostrich farmer present. Vitals: Estimated body mass index is [...] Fermín Hurtado DO documented in this encounter [facility] 07-04-2024 History of Present illness Narrative Reason for Appointment: Patient ID: Fartun Hall is a 38 y.o. female who presents for Amenorrhea Patient presents today for a Nurse OB Intake appointment. Patient is 12w4d with a Estimated Date of Delivery: 01/12/25 OB History Para Term AB Living 2 1 SAB IAB Ectopic Multiple Live Births 1 # Outcome Date GA Lbr Chrsi/2nd Weight Sex Type Anes PTL Lv 2 [...] meat, and stay away from [facility]. Patient has also been advised to [...] Shannon Farr LPN documented in this encounter [facility] 05-31-2023 Evaluation note Encounter Date Diagnosis Assessment Notes May, Dandruff in adult (ICD-10 - L21.0) Trial of medicated shampoo. Call if no improvement. 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 Will add drop with steroid component. Discussed proper hearing protection - possibly ear muff style. Also discussed ENT referral if needed. [employer] Other 10-16-2022 Evaluation note* Encounter Date Diagnosis [...] water inside ear after shower may use chairlift operator on lowest cool setting to blow dry. Follow up with PCP or UC if no improvement in the next 2-3 days. Immediate eval for severe ear pain, severe headache, neck pain/stiffness, pain, erythema, or swelling behind the ear, fever, N/V, hearing loss, fever, or any other new or concerning symptoms. Patient verbalizes understanding and is agreeable to treatment plan [employer] Other Evaluation note* Diagnosis Missed menses , unspecified gestational age Encounter for supervision of normal first in first trimester documented in this encounter [facility] HealthcareEvaluation note* Diagnosis 16 weeks gestation of Second trimester state, incidental Well woman exam with routine gynecological exam Routine gynecological examination Screening, , for anatomic survey Encounter for anatomic survey Exposure to STD Vaginal discharge Leukorrhea, not specified as infective Ear infection Unspecified otitis media documented in this encounter [facility] HealthcareEvaluation note* Diagnosis Second trimester state, incidental 21 weeks gestation of documented in this encounter [facility] HealthcareEvaluation note* Diagnosis resulting from assisted reproductive technology, second trimester- Primary 21 weeks gestation of History of bariatric surgery Bariatric surgery status Advanced maternal age, 1st , second trimester Low lying placenta nos or without hemorrhage, second trimester documented in this encounter [facility] SystemEvaluation note* Diagnosis resulting from assisted reproductive technology, second trimester- Primary Low lying placenta nos or without hemorrhage, second trimester Advanced maternal age in multigravida, second trimester documented in this encounter [facility] SystemEvaluation note* Diagnosis Diabetes mellitus screening Screening for diabetes mellitus 25 weeks gestation of Second trimester state, incidental History of bariatric surgery Bariatric surgery status resulting from in vitro fertilization, antepartum documented in this encounter [facility] HealthcareEvaluation note* Diagnosis History of bariatric surgery Bariatric surgery status documented in this encounter [facility] SystemEvaluation note* Diagnosis Third trimester state, incidental 29 weeks gestation of documented in this encounter [facility] HealthcareEvaluation note* Diagnosis Third trimester state, incidental 31 weeks gestation of Upper respiratory tract infection, unspecified type History of bariatric surgery Bariatric surgery status resulting from in vitro fertilization, antepartum Multigravida of advanced maternal age in third trimester documented in this encounter [facility] HealthcareHistory general Narrative - Reported* Type [...] REPIAR 2017 Hospitalization History SEE SURGICAL HX [employer] Other InstructionsNot on filedocumented in this encounter [facility] SystemInstructionsNot on filedocumented in this encounter [facility] SystemInstructionsNot on filedocumented in this encounter [facility] Summary Purpose Family History No Family [...] section and content) DATE CREATED AUTHOR 02/19/2018 [facility] [place] DATE CREATED AUTHOR AUTHOR'S ORGANIZ ATION 11/14/2018 [facility] DATE CREATED AUTHOR AUTHOR'S ORGANIZ ATION 09/17/2020 [facility] DATE CREATED AUTHOR AUTHOR'S ORGANIZ ATION 12/23/2020 [facility] DATE CREATED AUTHOR AUTHOR'S ORGANIZ ATION 10/21/2021 [facility] DATE CREATED AUTHOR AUTHOR'S ORGANIZ ATION 02/03/2023 [facility] DATE CREATED AUTHOR AUTHOR'S ORGANIZ ATION 09/11/2024 [facility] DATE CREATED AUTHOR AUTHOR'S ORGANIZ ATION 10/10/2024 [facility] DATE CREATED AUTHOR AUTHOR'S ORGANIZ ATION 11/14/2024 [facility] EPIC REASON FOR VISIT (unrecogniz ed section and content) Reason Comments Amenorrhea Reason Comments Routine Visit Reason Comments ama Fertility Preservation Reason Comments Med Change Request Care Teams (unrecognized sec tion and content) Instrument Mechanic Relationship Specialty Start Date End Date Luisa Ge APRN-LEOLA [address] [place] [address] SENIOR COUNSEL COMMERCIAL Pulmonary Medicine 06/02/20 Jamie Hardin MD [address], [place] [id number] Physician General Surgery 06/02/20 Page Faulkner M.Ed., R.D., L.D. [address] [address] Dietitian Nutrition 06/02/20 Rita Catherine MD [address] [place] [address] [place] [address] Physician Obstetrics/Gynecology 06/02/20 Rishabh Hi, STREET LIGHT SERVICER HELPER-VEGETABLE CANNER [address] [place] [phone] SENIOR COUNSEL COMMERCIAL Anesthesiology 06/02/20 Instrument Mechanic Relationship Specialty Start Date End Date Luisa Ge STREET LIGHT SERVICER HELPER-VEGETABLE CANNER [address] [place] [phone] SENIOR COUNSEL COMMERCIAL Pulmonary Medicine 06/02/20 Jamie Hardin MD [address] [place] [phone] Physician General Surgery 06/02/20 Page Faulkner M.Ed., R.D., L.D. [address] [address] Dietitian Nutrition 06/02/20 Rita Catherine MD [address] [place] [address] [place] [address] Physician Obstetrics/Gynecology 06/02/20 Rishabh Hi, STREET LIGHT SERVICER HELPER-VEGETABLE CANNER [address] [place] [phone] SENIOR COUNSEL COMMERCIAL Anesthesiology 06/02/20 Instrument Mechanic Relationship Specialty Start Date End Date Everett Olvieros MD [address] [place] [phone] PCP - General Family Medicine 03/29/23 Instrument Mechanic Relationship Specialty Start Date End Date Everett Oliveros MD [address] [place] [address] PCP - General Family Medicine 03/29/23 Instrument Mechanic Relationship Specialty Start Date End Date Everett Oliveros MD [address] [facility] [place] [address] PCP - General Family Medicine 03/29/23 Instrument Mechanic Relationship Specialty Start Date End Date Everett Oliveros MD [address] [facility] [place] [address] PCP - General Family Medicine 03/29/23 Instrument Mechanic Relationship Specialty Start Date End Date Everett Oliveros MD [address] [facility] [place] [phone] PCP - General Family Medicine 03/29/23 Instrument Mechanic Relationship Specialty Start Date End Date Everett Oliveros MD [address] [facility] [place] [phone] PCP - General Family Medicine 03/29/23 Instrument Mechanic Relationship Specialty Start Date End Date Everett Oliveros MD [address] [facility] [place] [address] PCP - General Family Medicine 03/29/23 Instrument Mechanic Relationship Specialty Start Date End Date Everett Oliveros MD [address] [place] [address] PCP - General Family Medicine 03/29/23 Instrument Mechanic Relationship Specialty Start Date End Date Everett Oliveros MD [address] [facility] [place] [phone] PCP - General Family Medicine 03/29/23 Instrument Mechanic Relationship Specialty Start Date End Date Everett Oliveros MD [address] [facility] [place] [phone] PCP - General Family Medicine 03/29/23 FOR [...] BE BASED ON THE PRIMARY CLINICAL RECORDS. [employer] [facility]. provides no warranty or guarantee of the accuracy or completeness of information in this document.
== END 2024-11-20 11:50 ==
LOC: US 10:53 → FBC 10:56
PROVIDERS: PCP Family Medicine; Visit Provider Obstetrics & Gynecology
DX: O99.843 Bariatric surgery status complicating pregnancy, third trimester (principal); O09.813 Supervision of pregnancy resulting from assisted reproductive technology, third trimester; O09.523 Supervision of elderly multigravida, third trimester; Z3A.32 32 weeks gestation of pregnancy; Z98.84 Bariatric surgery status
CPT/HCPCS: 76818

== ENCOUNTER 2024-11-23 10:58 | Outpatient (OUT) | payer BC, SELFPAY ==
[2024-11-23 11:04] VITALS: BP 115/63; PULSE 75
--- OUTSIDE RECORDS SUMMARY | 2024-11-23 11:04 | XMS_ITS | CCD ---
Author Organization [facility] Care Team Providers Care Rn Pain Management Name Role Phone No Family Physician Unavailable Unavailable No Family Physician Unavailable Unavailable NO FAMILY DOCTOR, NO FAMILY DOCTOR Primary Care Unavailable YANIRA MARTINO Attending Unavailable Swathi DANIEL Referring Unavailab le PROVIDER, UNKNOWN Attending Unavailable PROVIDER, UNKNOWN Admitting Unavailable WILSON CASTRO Primary Care Unavailable Yolis James Unavailable Joo PACKER, Luisa Unavailable Lashawn MESSER, Jamie Unavailable [phone] Kaushik West, R.Keyana., L.D., Page Unavailable Florin MESSER, Rita Unavailable Sussy PACKER, Rishabh NAlexia Unavailable [phone] Everett Oliveros Unavailable Joo PACKER, Luisa Unavailable Lashawn MESSER, Jamie Unavailable [phone] Kaushik West, R.Keyana., L.D., Page Unavailable Florin MESESR, Rita Unavailable Sussy PACKER, Rishabh N. Unavailable BRYANT ., DR GOSS Attending Unavailable BRYANT ., DR GOSS Admitting Unavailable ARLIN, DR EVERETT Corey Primary Care Unavailable BRYANT ., DR GOSS Consulting Unavailable REQUEST, DR GARAY LISTED Primary Care Unavaila ble BRYANT ., DR GOSS Attending Unavailable BOWDOINHAM, DR YANIRA Steele Consulting Unavailable BRYANT ., [...] DR GOSS Consulting Unavailable Arlin MESSER, Everett [facility] Care Provider [phone] Unavailable Primary Care Provider Unavailabl e BRYANT, FERMÍN R Referring Unavailable ERMELINDA NICHOLS Attending Unavailable BRYANT, FERMÍN R Referring Unavailable BRYANT, FERMÍN Attending Unavailable BRYANT, FERMÍN Attending Unavailable BRYANT, FERMÍN Attending Unavailable FERMÍN HURTADO Attending Unavailable FERMÍN HURTADO Attending Unavailable FERMÍN HURTADO Referring Unavailable EFRMÍN HURTADO Referring Unavailable Allergies Allergy Classification Reported Allergen(s) Allergy Type Date of Onset Reaction(s) Facility (3 sources) SEASONAL IC; Translations: [SEASONAL IC] Propensity to adverse reactions to drug (disorder) 9 [facility] Medications Current Medications Medication Drug [...] by mouth once daily before breakfast ferrous [id number] c C-folic acid (FOLTRIN) 110-0.5 mg capsule Take 1 capsule by mouth every morning before breakfast. Active aspirin 81 mg delayed release oral tablet (11 sources) Platelet Aggregation Inhibitor, Nonsteroidal Anti-inflammatory Drug [...] 09/06/2024 Active azithromycin 250 mg oral tablet (2 sources) Macrolide Antimicrobial Start: 11-12-2024 azithromycin (Zithromax Z-Gail) 250 MG tablet Indications: Upper respiratory tract [...] 1 Package 11 06/18/2019 Active Continuous Glucose Digital Sales Executive (Dexcom G6 asset protection professional) device (6 sources) Start: 10-09-2024 Continuous Glucose Digital Sales Executive (Dexcom G6 asset protection professional) device Indications: Diabetes mellitus screening , History of bariatric surgery Use as instructed 1 each 10/09/2024 Active Continuous Glucose Digital Sales Executive (FreeStyle Emmy 3 [place]) device (3 sources) Start: 10-03-2024 End: 10-17-2024 Continuous Glucose Digital Sales Executive (FreeStyle Emmy 3 [place]) device Indications: Diabetes mellitus screening , History [...] Continuous Glucose Transmitter (Dexcom G6 transmitter) misc (5 sources) Start: 10-11-2024 Continuous Glucose Transmitter (Dexcom [...] Active folic acid 1 mg oral tablet (20 sources) take 1 tablet by mouth once daily folic acid (Folvite) 1 MG tablet Take 1 mg by mouth Daily Active humidifier (2 sources) Start: 09-21-2018 humidifier Dispense humidifier covered by insurance to use as directed 1 Each 0 09/21/2018 Active hydrocortisone 10 mg/ml / neomycin 3.5 mg/ml / polymyxin b 16397 unt/ml otic solution (1 source) Aminoglycoside Antibacterial, [...] tablet 08/06/2024 08/13/2024 Active multivitamin (Theragran) tablet (20 sources) take 1 tablet by mouth once [...] omeprazole 20 mg delayed release oral capsule (14 sources) Proton Pump Inhibitor Start: 10-28-2024 take 1 capsule by mouth in the morning omeprazole (PriLOSEC) 20 mg capsule Indications: History of bariatric surgery TAKE 1 CAPSULE BY MOUTH IN THE MORNING 90 capsule 3 10/28/2024 Active Start: 09-06-2024 take 1 capsule by mo ut once daily omeprazole (PriLOSEC) [address] [...] 05/30/2019 Active MV-Min-Fe Fum-FA-DHA ( 1 PO) (20 sources) MV-Min- Fe Fum-FA-DHA ( 1 PO) Take 1 each by mouth Daily Active [id number]-igqi-macbw acid ( 19) 29 mg iron- 1 mg tablet,chewable (3 sources) [id number]-[id number]-tajgu acid ( 19) 29 mg iron- 1 [...] Agonist Start: 12-27-2019 varenicline (CHANTIX STARTING MONTH GAIL) 0.5 MG X 11 & 1 MG [...] unspecified; Translations: [Diarrhea, unspecified] Onset: 11-07-2018 Unclassified (13 sources) OB Reminders Onset: 08-08-2024 08-08-2024 Unclassified [...] Test Name Value Interpretation Reference Range Facility OB BPP W NON-STRESS on 11-20-2024 [place] [address] Ultrasound Report Signed Patient: FARTUN HALL MR#: [id number] : 1985 Acct:[id number] Age/Sex: 39 / F ADM Date: 11/20/24 Loc: US Attending Dr: Fermín Hurtado D.O. Ordering Physician: Fermín Hurtado D.O. Date of Service: 11/20/24 Procedure(s): US OB BPP w non-stress Accession Number(s): [id number] cc: Everett Oliveros M.D.; Fermín Hurtado D.O. [place] [address] Patient Name: FARTUN HALL MRN: [facility]:[id number] date: 1985 Sex: F Assigned Patient Location: [facility] Current Patient Location: Accession/Order Number: [id number] Exam Date: 11/20/2024 15:25 Report Date: 11/20/2024 15:26 At the request of: FERMÍN HURTADO DO Procedure: US OB BPP w non-stress Biophysical profile. Reason for exam: Advanced maternal age. History of bariatric surgery. COMPARISON: 11/13/2024 TECHNIQUE: Transabdominal imaging of the gravid uterus was obtained. FINDINGS: Chamber Walker reports a BPP of 8 out of 8. CYNTHIA is normal at 13.2cm. heart rate 156bpm. US/US OB BPP w non-stress IMPRESSION: BPP 8 out of 8. Impression dictated by: Corey Fregoso Jr., D.O.11/20/2024 3:26 PM Dictation Location: [place] [address] Electronically authenticated by: [id number] Y Date: 11/20/2024 15:26 Dictated By: Corey Fregoso M.D. Signed By: 11/20/24 1528 DD/ 1526 TD/TT: Nursing Tech: [facility] RadiologyMarylou MD - 11/20/2024 [place] [address] Ultrasound Report Signed Patient: FARTUN HALL MR#: [id number] : 1985 Acct:[id number] Age/Sex: 39 / F ADM Date: 11/20/24 Loc: US Attending Dr: Fermín Hurtado D.O. Ordering Physician: Fermín Hurtado D.O. Date of Service: 11/20/24 Procedure(s): US OB BPP w non-stress Accession Number(s): [id number] cc: Everett Oliveros M.D.; Fermín Hurtado D.O. [facility] [place] [id number] Patient Name: FARTUN HALL MRN: [id number] date: 1985 Sex: F Assigned Patient Location: [facility] Current Patient Location: Accession/Order Number: [id number] Exam Date: 11/20/2024 15:25 Report Date: 11/20/2024 15:26 At the request of: FERMÍN HURTADO DO Procedure: US OB BPP w non-stress Biophysical profile. Reason for exam: Advanced maternal age. History of bariatric surgery. COMPARISON: 11/13/2024 TECHNIQUE: Transabdominal imaging of the gravid uterus was obtained. FINDINGS: Chamber Walker reports a BPP of 8 out of 8. CYNTHIA is normal at 13.2cm. heart rate 156bpm. US/US OB BPP w non-stress IMPRESSION: BPP 8 out of 8. Impression dictated by: Corey Fregoso Jr., D.O.11/20/2024 3:26 PM [facility] Electron[facility] authenticated by: [id number] Y Date: 11/20/2024 15:26 Dictated By: Corey Fregoso M.D. Signed By: 11/20/24 1528 DD/ 1526 TD/TT: Nursing Tech: [facility] Radiology Study observation (narrative) [facility] US OB BPP W NON-STRESS Ordered By: Radiologist Radiology on 11-20-2024 [facility] Work Phone: Urinalysis macro (dipstick) panel (U)on 11-12-2024 Bilirubin, UA Positive Negative - 4(70) +++ mg/dL [facility] Comment on above: small Blood, UA Negative Negative - 50 Nnamdi/mcL [facility] Clarity, UA Clear [facility] Color, UA Yellow [facility] Glucose, UA Negative Negative - 2000(110) ++++ mg/dL [facility] Interpretation and review of laboratory results Abnormal [facility] Ketones, UA Positive Negative - 160(16) ++++ mg/dL [facility] Comment on above: 15mg/dL Leukocytes, UA Negative Negative - 500+++ Dilcia/mcL [facility] Nitrite, UA Negative Negative - Positive [facility] pH, UA 6 5 - 9 [facility] Protein, UA Positive Negative - 1999(20) ++++ mg/dL [facility] Comment on above: 30mg/dL Spec Grav, UA 1.025 1 - 1.03 [facility] Urobilinogen, UA 1.0 0.2 - 12 mg/dL [facility] Urinalysis macro (dipstick) panel (U)on 10-29-2024 Bilirubin, UA Negative Negative - 4(70) +++ mg/dL [facility] Blood, UA Negative Negative - 50 Nnamdi/mcL [facility] Clarity, UA Clear [facility] Color, UA Yellow [facility] Glucose, UA Negative Negative - 1999(110) ++++ mg/dL [facility] Interpretation and review of laboratory results Abnormal [facility] Ketones, UA Negative Negative - 160(16) ++++ mg/dL [facility] Leukocytes, UA Negative Negative - 500+++ Dilcia/mcL [facility] Nitrite, UA Negative Negative - Positive [facility] pH, UA 7 5 - 9 [facility] Protein, UA Trace Negative - 1999(20) ++++ mg/dL [facility] Spec Grav, UA 1.025 1 - 1.03 [facility] Urobilinogen, UA 4.0 0.2 - 12 mg/dL [facility] ALL CBC WITH AUTO DIFFon BASOPHILS ABSOLUTE AUTO 0.1 [facility] Basophils/100 WBC (Bld) 0.6 % 0.2 - 2.0 % [facility] Eosinophils/100 WBC (Bld) 3.2 % 0.9 - 7.0 % [facility] Erythrocyte distribution width (RBC) [Ratio] 13.1 % 11.0 - 15.0 % [facility] Hematocrit (Bld) [Volume fraction] 34.1 % Low 36.0 - 48.0 % [facility] Hemoglobin (Bld) [Mass/Vol] 10.9 g/dL Low 12.0 - 16.0 g/dL [facility] IMMATURE GRANULOCYTES ABS AUTO 0.03 [facility] Immature granulocytes/100 WBC (Bld) 0.3 % 0.0 - 0.5 % [facility] Interpretation and review of laboratory results Abnormal [facility] LYMPHOCYTES ABSOLUTE AUTO 2.9 [facility] Lymphocytes/100 WBC (Bld) 27.6 % 20.5 - 60.0 % [facility] MCH (RBC) [Entitic mass] 26.5 pg Low 26.7 - 34.0 pg [facility] MCHC (RBC) [Mass/Vol] 32 g/dL 29.9 - 35.2 g/dL [facility] MCV (RBC) [Entitic vol] 82.8 fL 81.0 - 99.0 fL [facility] MONOCYTES ABSOLUTE AUTO 0.7 [facility] Monocytes/100 WBC (Bld) 6.3 % 1.7 - 12.0 % [facility] NEUTROPHILS ABSOLUTE AUTO 6.5 [facility] Neutrophils/100 WBC (Bld) 62 % 43.0 - 75.0 % [facility] Platelet mean volume (Bld) [Entitic vol] 11.6 fL 9.5 - 13.5 fL [facility] EO # 0.3 [facility] PLT 348 [facility] RBC 4.12 Low [facility] WBC 10.4 [facility] Urinalysis macro (dipstick) panel (U)on 10-03-2024 Bilirubin, UA Negative Negative - 4(70) +++ mg/dL [facility] Blood, UA Negative Negative - 50 Nnamdi/mcL [facility] Clarity, UA Clear [facility] Color, UA Yellow [facility] Glucose, UA Negative Negative - 1999(110) ++++ mg/dL [facility] Interpretation and review of laboratory results Abnormal [facility] Ketones, UA Negative Negative - 160(16) ++++ mg/dL [facility] Leukocytes, UA Negative Negative - 500+++ Dilcia/mcL [facility] Nitrite, UA Negative Negative - Positive [facility] pH, UA 6.5 5 - 9 [facility] Protein, UA Trace Negative - 1999(20) ++++ mg/dL [facility] Spec Grav, UA 1.025 1 - 1.03 [facility] Urobilinogen, UA 1.0 0.2 - 12 mg/dL [facility] Urinalysis macro (dipstick) panel (U)on 09-04-2024 Bilirubin, UA Negative Negative - 4(70) +++ mg/dL [facility] Blood, UA Negative Negative - 50 Nnamdi/mcL [facility] Clarity, UA Clear [facility] Color, UA Yellow [facility] Glucose, UA Negative Negative - 1999(110) ++++ mg/dL [facility] Interpretation and review of laboratory results Normal [facility] Ketones, UA Negative Negative - 160(16) ++++ mg/dL [facility] Leukocytes, UA Negative Negative - 500+++ Dilcia/mcL [facility] Nitrite, UA Negative Negative - Positive [facility] pH, UA 5.5 5 - 9 [facility] Protein, UA Negative Negative - 1999(20) ++++ mg/dL [facility] Spec Grav, UA 1.02 1 - 1.03 [facility] Urobilinogen, UA 1.0 0.2 - 12 mg/dL [facility] AFP, SERUM, OPEN SPINA BIFID Aon 08-11-2024 AFP MOM 1.01 . [facility] AFP VALUE 39.6 ng/mL . [facility] COMMENT: Comment . [facility] Comment on above: Hazel Dixon , Ph.D., [facility] Director References: Available Upon Request. Multiples Of Median Cutoffs For AFP Elevations Krishna 2.5 Black 2.8 IDD 2.0 Twins 4.5 Abbreviation Definitions IDD - Insulin Dep Diabetes OSBR - Open Spina Bifida Risk For further inquiries contact [employer] [facility] at [phone]. This test was developed and its performance characteristics determined by [facility]. It has not been cleared or approved by the Food and Drug Administration. Performed at: [facility] [address] [id number] [employer]let [employer] Operator: Mc Doshi [facility], Phone: [phone] GEST. AGE ON COLLECTION DATE 17.7 . weeks [facility] GESTAT. AGE BASED ON Ultrasound . [facility] Comment on above: 16.6 on 07/31/2024 Recalculations are not recommended when gestational dating by LMP and ultrasound are within 10 days. INSULIN DEP DIABETES No . [facility] INTERPRETATION Comment . [facility] Comment on above: Interpretation: Scre en Negative [...] Customer Services to discuss available options. The [employer] recommends amniocentesis be offered to women age 35 and older. [age] [facility] MULTIPLE GESTATION No . [facility] OSBR RISK [place] [address] . [facility] RACE . [facility] RESULTS Report . [facility] TEST RESULTS: Negative . [facility] WEIGHT 161 . lbs [facility] N N ULTRASOUND [id number] 4 16 N 1 Y 161 N N N N N White/ [facility] IGP,APTIMA HPV,AGE GDLNon AGE GDLN ACOG TESTING Note . [facility] Comment on above: TESTS RESULT FLAG UN ITS REF RANGE LAB Clinician Provided Cytology Information Source.............Cervix Other.............. No. of containers..01 ThinPrep Vial Age Algo ACOG Aniya... 30-65 01 FLAG LEGEND: L-Low Normal,H-High Normal,LL-Alert Low,HH-Alert High <-Panic Low,>-Panic High,A-Abnormal,AA-Critical Abnormal Performed at: 01 =G [address] [place] [address] Dipti Hurtado MD, HPV APTIMA Negative Negative [facility] Comment on above: This nucleic acid am plification test detects fourteen high- risk HPV types (16,18,31,33,35,39,45,51,52,56,58,59,66,68) without differentiation. Performed at: = - [facility], [place] [id number] Pel[employer] Operator: Dipti Hurtado MD, Phone: [phone] Performed at: - [address], [place] [id number] [employer] Operator: Dipti Hurtado MD, Phone: [phone] IGP, APTIMA HPV, RFX 16/18,45 Note . [facility] Comment on above: TESTS RESULT FLAG UN ITS REF RANGE LAB DIAGNOSIS: 02 NEGATIVE FOR INTRAEPITHELIAL LESION OR MALIGNANCY. Specimen adequacy: 02 Satisfactory for evaluation. Endocervical and/or squamous metaplastic cells (endocervical component) are present. Performed by: 02 Adria Kincaid, It Program Engagement Director (ASCP) . 02 Note: Note 02 The [...] <-Panic Low,>-Panic High,A-Abnormal,AA-Critical Abnormal Performed at: [address] [address] Dipti Hurtado MD, SPATULA-ALONE CERVIX [facility] RECURRENT VAGINITIS (HTRX)on 08-03-2024 ATOPOBIUM VAGINAE 0 [facility] ATOPOBIUM VAGINAE Not detected [facility] BVAB 2,3 (BACTERIAL VAGINOSIS ASSOCIATED BACTERIA 2, 3); MOBILUNCUS SPP 27.074 Abnormal [facility] BVAB 2,3 (BACTERIAL VAGINOSIS ASSOCIATED BACTERIA 2, 3); MOBILUNCUS SPP Detected Abnormal [facility] LULY ALBICANS, PARAPSILOSIS, TROPICALIS 0 [facility] LULY ALBICANS, PARAPSILOSIS, TROPICALIS Not detected [facility] LULY GLABRATA 0 [facility] LULY GLABRATA Not detected [facility] LULY KRUSEI 0 [facility] LULY KRUSEI Not detected [facility] CHLAMYDIA TRACHOMATIS 0 [facility] CHLAMYDIA TRACHOMATIS Not detected N [facility] GARDNERELLA VAGINALIS 30.955 Abnormal [facility] GARDNERELLA VAGINALIS Detected Abnormal [facility] Interpretation and review of laboratory results Abnormal [facility] MEGASPHAERA (TYPES 1, 2) 0 [facility] MEGASPHAERA (TYPES 1, 2) Not detected [facility] MYCOPLASMA GENITALIUM 0 [facility] MYCOPLASMA GENITALIUM Not detected N [facility] NEISSERIA GONORRHOEAE 0 [facility] NEISSERIA GONORRHOEAE Not detected N [facility] TET B, TET M 16.937 Abnormal [facility] TET B, TET M Detected Abnormal [facility] TRICHOMONAS VAGINALIS 0 [facility] TRICHOMONAS VAGINALIS Not detected N [facility] Urinalysis macro (dipstick) panel (U)on 07-31-2024 Bilirubin, UA Negative Negative - 4(70) +++ mg/dL [facility] Blood, UA Negative Negative - 50 Nnamdi/mcL [facility] Clarity, UA Clear [facility] Color, UA Yellow [facility] Glucose, UA Negative Negative - 2000(110) ++++ mg/dL [facility] Interpretation and review of laboratory results Normal [facility] Ketones, UA Negative Negative - 160(16) ++++ mg/dL [facility] Leukocytes, UA Negative Negative - 500+++ Dilcia/mcL [facility] Nitrite, UA Negative Negative - Positive [facility] pH, UA 6 5 - 9 [facility] Protein, UA Negative Negative - 2000(20) ++++ mg/dL [facility] Spec Grav, UA 1.015 1 - 1.03 [facility] Urobilinogen, UA 1.0 0.2 - 12 mg/dL [facility] ALL CBC WITH AUTO DIFFon BASOPHILS ABSOLUTE AUTO 0.1 [facility] Basophils/100 WBC (Bld) 0.6 % 0.2 - 2.0 % [facility] Eosinophils/100 WBC (Bld) 3.7 % 0.9 - 7.0 % [facility] Erythrocyte distribution width (RBC) [Ratio] 13.1 % 11.0 - 15.0 % [facility] Hematocrit (Bld) [Volume fraction] 36.3 % 36.0 - 48.0 % [facility] Hemoglobin (Bld) [Mass/Vol] 11.7 g/dL Low 12.0 - 16.0 g/dL [facility] IMMATURE GRANULOCYTES ABS AUTO 0.03 [facility] Immature granulocytes/100 WBC (Bld) 0.3 % 0.0 - 0.5 % [facility] Interpretation and review of laboratory results Abnormal [facility] LYMPHOCYTES ABSOLUTE AUTO 3.1 [facility] Lymphocytes/100 WBC (Bld) 31.7 % 20.5 - 60.0 % [facility] MCH (RBC) [Entitic mass] 27.7 pg 26.7 - 34.0 pg [facility] MCHC (RBC) [Mass/Vol] 32.2 g/dL 29.9 - 35.2 g/dL [facility] MCV (RBC) [Entitic vol] 85.8 fL 81.0 - 99.0 fL [facility] MONOCYTES ABSOLUTE AUTO 0.6 [facility] Monocytes/100 WBC (Bld) 6.3 % 1.7 - 12.0 % [facility] NEUTROPHILS ABSOLUTE AUTO 5.6 [facility] Neutrophils/100 WBC (Bld) 57.4 % 43.0 - 75.0 % [facility] Platelet mean volume (Bld) [Entitic vol] 11.9 fL 9.5 - 13.5 fL [facility] TB EO # 0.4 [facility] PLT 306 [facility] HCG ( test) Ql (U)o n 07-04-2024 Interpretation and review of laboratory results Abnormal [facility] Preg Test, Ur Positive Negative [facility] Urinalysis macro (dipstick) panel (U)on 07-04-2024 Bilirubin, UA Negative Negative - 4(70) +++ mg/dL [facility] Blood, UA Positive Negative - 50 Nnamdi/mcL [facility] Comment on above: trace-intact Clarity, UA Clear [facility] Color, UA Yellow [facility] Glucose, UA Negative Negative - 2000(110) ++++ mg/dL [facility] Interpretation and review of laboratory results Abnormal [facility] Ketones, UA Negative Negative - 160(16) ++++ mg/dL [facility] Leukocytes, UA Negative Negative - 500+++ Dilcia/mcL [facility] Nitrite, UA Negative Negative - Positive [facility] pH, UA 6 5 - 9 [facility] Protein, UA Negative Negative - 2000(20) ++++ mg/dL [facility] Spec Grav, UA 1.03 1 - 1.03 [facility] Urobilinogen, UA 0.2 0.2 - 12 mg/dL [facility] PREG QUANT HCGon 01-17-2023 HCG QUANT <1 Normal [facility] Comment on above: Performed By: #### P REGQNT #### [facility] [address] [place] [address] [address] Meghan Vital HCG RANGE SEE BELOW Normal The [facility] Comment on above: Result Comment: 5-50 0.2-1 WEEK 50-500 1-2 WEEKS 100-5,000 2-3 WEEKS 500-10,000 3-4 WEEKS 1,000-50,000 4-5 WEEKS 10,000-100,000 5-6 WEEKS 15,000-200,000 6-8 WEEKS 10,000-100,000 2-3 MONTHS Performed By: #### P REGQNT #### [facility] [address] [place] [address] [address] Meghan Vital PROGESTERONEon 01-10-2023 Progesterone 8.9 ng/mL Normal [facility] Comment on above: Result Comment: Foll icular phase 0.1 - 0.9 Luteal phase 1.8 - 23.9 Ovulation phase 0.1 - 12.0 First trimester 11.0 - 44.3 Second trimester 25.4 - 83.3 Third trimester 58.7 - 214.0 Postmenopausal 0.0 - 0.1 Performed By: #### H CGSUB #### [facility] [address] [place] [address] Dr. Meghan Vital PAP ACOG PANEL 2: 30 to 65on 11-30-2022 . . Normal [facility] Comment on above: Result Comment: Perf ormed at: WB Performed By: #### [id number] #### [facility] [address] [place] [address] Dr. Meghan Vital Age Gdln ACOG Testing -66 [facility] Comment on above: Performed By: #### [id number] #### [facility] [address] [place] [address] Dr. Meghan Vital DIAGNOSIS: Comment Normal [facility] Comment on above: Result Comment: NEGA TIVE FOR INTRAEPITHELIAL LESION OR MALIGNANCY. Performed at: WB Performed By: #### [id number] #### [facility] [address] [place] [address] Dr. Meghan Vital HPV Aptima Positive Abnormal Negative [facility] Comment on above: Result Comment: This nucleic acid amplification test detects fourteen high-risk HPV types (16,18,31,33,35,39,45,51,52,56,58,59,66,68) without differentiation. Performed at: =G Performed By: #### 4 [id number] #### [facility] [address] [place] [address] Dr. Meghan Vital HPV Genotype 16 Negative Normal Negative [facility] Comment on above: Performed By: #### [id number] #### [facility] [address] [place] [address] Dr. Meghan Vital HPV Genotype 18,45 Negative Normal Negative [facility] Comment on above: Performed By: #### 4 [id number] #### [facility] [address] [place] [address] Dr. Meghan Vital HPV Genotype Reflex Comment [facility] Comment on above: Result Comment: Aiyana iqbal, see HPV Genotype results. Performed at: WB Performed By: #### [id number] #### [facility] [address] [place] [address] Dr. Meghan Vital Methodology: Comment Normal [facility] Comment on above: Result Comment: This liquid based ThinPrep(R) pap test was screened with the use of an image guided system. Performed at: WB Performed By: #### [id number] #### [facility] [address] [place] [address] Dr. Meghan Vital Note: Comment Normal [facility] Comment on above: Result Comment: The Pap smear is a screening test designed to aid in the detection of premalignant and malignant conditions of the uterine cervix. It is not a diagnostic procedure and should not be used as the sole means of detecting cervical cancer. Both false-positive and false-negative reports do occur. . Performed at: WB Performed By: #### [id number] #### [facility] [address] [place] [address] Dr. Meghan Vital Performed by: Comment Normal [facility] Comment on above: Result Comment: Rahul Kincaid, It Program Engagement Director (ASCP) Performed at: WB Performed By: #### [id number] #### [facility] [address] [place] [address] Dr. Meghan Vital Specimen adequacy: Comment [facility] Comment on above: Result Comment: Sati sfactory for evaluation. Endocervical and/or squamous metaplastic cells (endocervical component) are present. Performed at: WB Performed By: #### 4 [id number] #### [facility] [address] [place] [address] Dr. Meghan Vital ANTI-MULLERIAN HORMONEon Anti-Mullerian Hormone (AMH) 3.03 ng/mL [facility] Comment on above: Result Comment: For assays employing antibodies, the possibility exists for interference by heterophile antibodies in the samples.1 1.Bailey Dickson Interferences in Immunoassays - still a threat. Clin. Chem. 2000; 46: 6785-5093. This test was developed and its performance characteristics determined by [employer]. It has not been cleared or approved by the Food and Drug Administration. Reference Range: Females 36 - 40y: 0.42 - 8.34 Median 1.69 AMH concentrations of >= 1.06 ng/mL is correlated with a better response to ovarian stimulation, produced more retrievable oocytes and higher odds of live according to Shaniceer et al. Fertility and Sterility. 2010: 94:7052-8801. The current AMH test method correlates with [...] By: #### H CGSUB #### [facility] [address] [place] [address] Dr. Meghan Vital CBC AUTO DIFFon 11-21-2022 BASO # 0.1 103/ul Normal 0.0-0.1 [facility] Comment on above: Performed By: #### H CGSUB #### [facility] [address] [place] [address] Dr. Meghan Vital Basophils/100 WBC (Bld) 0.8 % Normal 0.2-2.0 [facility] Comment on above: Performed By: #### H CGSUB #### [facility] [address] [place] [address] Dr. Meghan Vital EO # 0.2 103/ul Normal 0.0-0.7 [facility] Comment on above: Performed By: #### H CGSUB #### [facility] [address] [place] [address] Dr. Meghan Vital Eosinophils/100 WBC (Bld) 2.3 % Normal 0.9-7.0 [facility] Comment on above: Performed By: #### H CGSUB #### [facility] [address] [place] [address] Dr. Meghan Vital Erythrocyte distribution width (RBC) [Ratio] 13.3 % Normal 11.0-15.0 [facility] Comment on above: Performed By: #### H CGSUB #### [facility] [address] [place] [address] Dr. Meghan Vital Hematocrit (Bld) [Volume fraction] 42.4 % Normal 36.0-48.0 [facility] Comment on above: Performed By: #### H CGSUB #### [facility] [address] [place] [address] Dr. Meghan Vital Hemoglobin (Bld) [Mass/Vol] 13.6 g/dL Normal 12.0-16.0 [facility] Comment on above: Performed By: #### H CGSUB #### [facility] [address] [place] [address] Dr. Meghan Vital IG # 0.01 10e3/ul Normal 0.00-0.03 [facility] Comment on above: Performed By: #### H CGSUB #### [facility] [address] [place] [address] Dr. Meghan Vital IG % 0.1 % Normal 0.0-0.5 [facility] Comment on above: Performed By: #### H CGSUB #### [facility] [address] [place] [address] Dr. Meghan Vital LYMPH # 3.9 103/ul Critically high 1.2-3.8 [facility] Comment on above: Performed By: #### H CGSUB #### [facility] [address] [place] [address] Dr. Meghan Vital Lymphocytes/100 WBC (Bld) 42.7 % Normal 20.5-60.0 [facility] Comment on above: Performed By: #### H CGSUB #### [facility] [address] [place] [address] Dr. Meghan Vital MANUAL DIFF REQ NO Normal [facility] Comment on above: Performed By: #### H CGSUB #### [facility] [address] [place] [address] Dr. Meghan Vital MCH (RBC) [Entitic mass] 27.4 pg Normal 26.7-34.0 [facility] Comment on above: Performed By: #### H CGSUB #### [facility] [address] [place] [address] Dr. Meghan Vital MCHC (RBC) [Mass/Vol] 32.1 g/dL Normal 29.9-35.2 [facility] Comment on above: Performed By: #### H CGSUB #### [facility] [address] [place] [address] Dr. Meghan Vital MCV (RBC) [Entitic vol] 85.3 fL Normal 81.0-99.0 [facility] Comment on above: Performed By: #### H CGSUB #### [facility] [address] [place] [address] Dr. Meghan Vital MONO # 0.6 103/ul Normal 0.3-0.8 [facility] Comment on above: Performed By: #### H CGSUB #### [facility] [address] [place] [address] Dr. Meghan Vital Monocytes/100 WBC (Bld) 6.1 % Normal 1.7-12.0 [facility] Comment on above: Performed By: #### H CGSUB #### [facility] [address] [place] [address] Dr. Meghan Vital NEUT # 4.3 103/ul Normal 1.4-6.5 [facility] Comment on above: Performed By: #### H CGSUB #### [facility] [address] [place] [address] Dr. Meghan Vital Neutrophils/100 WBC (Bld) 48.0 % Normal 43.0-75.0 [facility] Comment on above: Performed By: #### H CGSUB #### [facility] [address] [place] [address] Dr. Meghan Vital Platelet mean volume (Bld) [Entitic vol] 11.5 fL Normal 9.5-13.5 [facility] Comment on above: Performed By: #### H CGSUB #### [facility] [address] [place] [address] Dr. Meghan Vital PLT 251 103/ul Normal 150-450 [facility] Comment on above: Performed By: #### H CGSUB #### [facility] [address] [place] [address] Dr. Meghan Vital RBC 4.97 106/ul Normal 4.20-5.40 [facility] Comment on above: Performed By: #### H CGSUB #### [facility] [address] [place] [address] Dr. Meghan Vital WBC 9.0 103/ul Normal 4.0-11.0 [facility] Comment on above: Performed By: #### H CGSUB #### [facility] [address] [place] [address] Dr. Meghan Vital FREE T4on 11-21-2022 Free T4 [Mass/Vol] 1.03 ng/dL Normal 0.76-1.46 [facility] Comment on above: Performed By: #### F T4 #### [facility] [address] [place] [address] Dr. Meghan Vital GLYCOHEMOGLOBIN A1Con 2022 ADA RECOMMENDATION SEE BELOW Normal [facility] Comment on above: Result Comment: ADA RECOMMENDED LIMIT 4.0 - 6.0 ADA THERAPEUTIC TARGET < 7.0 ACTION SUGGESTED > 7.0 Performed By: #### H CGSUB #### [facility] [address] [place] [address] Dr. Meghan Vital Glucose [Mass/Vol] 97 mg/dL Normal [facility] Comment on above: Performed By: #### H CGSUB #### [facility] [address] [place] [address] Dr. Meghan Vital HbA1c (Bld) [Mass fraction] 5.0 % Normal 4.5-6.2 [facility] Comment on above: Performed By: #### H CGSUB #### [facility] [address] [place] [address] Dr. Meghan Vital TSHon 11-21-2022 TSH 1.636 uIU/mL Normal 0.358-3.74 0 [facility] Comment on above: Performed By: #### H CGSUB #### [facility] [address] [place] [address] Dr. Meghan Vital PROGESTERONEon 10-12-2022 Progesterone 6.8 ng/mL Normal [facility] Comment on above: Result Comment: Foll icular phase 0.1 - 0.9 Luteal phase 1.8 - 23.9 Ovulation phase 0.1 - 12.0 First trimester 11.0 - 44.3 Second trimester 25.4 - 83.3 Third trimester 58.7 - 214.0 Postmenopausal 0.0 - 0.1 Performed By: #### H CGSUB #### [facility] [address] [place] [address] Dr. Meghan Vital CBC AUTO DIFFon 09-23-2022 BASO # 0.1 103/ul Normal 0.0-0.1 [facility] Comment on above: Performed By: #### C BC #### [facility] [address] [place] [address] Dr. Meghan Vital Basophils/100 WBC (Bld) 1.2 % Normal 0.2-2.0 [facility] Comment on above: Performed By: #### C BC #### [facility] [address] [place] [address] Dr. Meghan Vital EO # 0.2 103/ul Normal 0.0-0.7 [facility] Comment on above: Performed By: #### C BC #### [facility] [address] [place] [address] Dr. Meghan Vital Eosinophils/100 WBC (Bld) 2.4 % Normal 0.9-7.0 [facility] Comment on above: Performed By: #### C BC #### [facility] [address] [place] [address] Dr. Meghan Vital Erythrocyte distribution width (RBC) [Ratio] 13.1 % Normal 11.0-15.0 [facility] Comment on above: Performed By: #### C BC #### [facility] [address] [place] [address] Dr. Meghan Vital Hematocrit (Bld) [Volume fraction] 38.1 % Normal 36.0-48.0 [facility] Comment on above: Performed By: #### C BC #### [facility] [address] [place] [address] Dr. Meghan Vital Hemoglobin (Bld) [Mass/Vol] 13.4 g/dL Normal 12.0-16.0 [facility] Comment on above: Performed By: #### C BC #### [facility] [address] [place] [address] Dr. Meghan Vital IG # 0.01 10e3/ul Normal 0.00-0.03 [facility] Comment on above: Performed By: #### C BC #### [facility] [address] [place] [address] Dr. Meghan Vital IG % 0.1 % Normal 0.0-0.5 [facility] Comment on above: Performed By: #### C BC #### [facility] [address] [place] [address] Dr. Meghan Vital LYMPH # 3.4 103/ul Normal 1.2-3.8 [facility] Comment on above: Performed By: #### C BC #### [facility] [address] [place] [address] Dr. eMghan Vital Lymphocytes/100 WBC (Bld) 45.2 % Normal 20.5-60.0 [facility] Comment on above: Performed By: #### C BC #### [facility] [address] [place] [address] Dr. Meghan Vital MANUAL DIFF REQ NO Normal [facility] Comment on above: Performed By: #### C BC #### [facility] [address] [place] [address] Dr. Meghan Vital MCH (RBC) [Entitic mass] 27.8 pg Normal 26.7-34.0 [facility] Comment on above: Performed By: #### C BC #### [facility] [address] [place] [address] Dr. Meghan Vital MCHC (RBC) [Mass/Vol] 35.2 g/dL Normal 29.9-35.2 [facility] Comment on above: Performed By: #### C BC #### [facility] [address] [place] [address] Dr. Meghan Vital MCV (RBC) [Entitic vol] 79.0 fL Critically low 81.0-99.0 [facility] Comment on above: Performed By: #### C BC #### [facility] [address] [place] [address] Dr. Meghan Vital MONO # 0.4 103/ul Normal 0.3-0.8 [facility] Comment on above: Performed By: #### C BC #### [facility] [address] [place] [address] Dr. Meghan Vital Monocytes/100 WBC (Bld) 5.3 % Normal 1.7-12.0 [facility] Comment on above: Performed By: #### C BC #### [facility] [address] [place] [address] Dr. Meghan Vital NEUT # 3.4 103/ul Normal 1.4-6.5 [facility] Comment on above: Performed By: #### C BC #### [facility] [address] [place] [address] Dr. Meghan Vital Neutrophils/100 WBC (Bld) 45.8 % Normal 43.0-75.0 [facility] Comment on above: Performed By: #### C BC #### [facility] [address] [place] [address] Dr. Meghan Vital Platelet mean volume (Bld) [Entitic vol] 11.4 fL Normal 9.5-13.5 [facility] Comment on above: Performed By: #### C BC #### [facility] [address] [place] [address] Dr. Meghan Vital PLT 280 103/ul Normal 150-450 [facility] Comment on above: Performed By: #### C BC #### [facility] [address] [place] [address] Dr. Meghan Vital RBC 4.82 106/ul Normal 4.20-5.40 [facility] Comment on above: Performed By: #### C BC #### [facility] [address] [place] [address] Dr. Meghan Vital WBC 7.5 103/ul Normal 4.0-11.0 [facility] Comment on above: Performed By: #### C BC #### [facility] [address] [place] [address] Dr. Meghan Vital FREE T4on 09-23-2022 Free T4 [Mass/Vol] 1.17 ng/dL Normal 0.76-1.46 [facility] Comment on above: Performed By: #### H CGSUB #### [facility] [address] [place] [address] Dr. Meghan Vital GLYCOHEMOGLOBIN A1Con 2022 ADA RECOMMENDATION SEE BELOW Normal [facility] Comment on above: Result Comment: ADA RECOMMENDED LIMIT 4.0 - 6.0 ADA THERAPEUTIC TARGET < 7.0 ACTION SUGGESTED > 7.0 Performed By: #### A 1C #### [facility] [address] [place] [address] Dr. Meghan Vital Glucose [Mass/Vol] 100 mg/dL Normal [facility] Comment on above: Performed By: #### A 1C #### [facility] [address] [place] [address] Dr. Meghan Vital HbA1c (Bld) [Mass fraction] 5.1 % Normal 4.5-6.2 [facility] Comment on above: Performed By: #### A 1C #### [facility] [address] [place] [address] Dr. Meghan Vital TSHon 09-23-2022 TSH 1.235 uIU/mL Normal 0.358-3.74 0 [facility] Comment on above: Performed By: #### T SH #### [facility] [address] [place] [address] Dr. Meghan Vital PREG QUANT HCGon 07-12-2022 HCG QUANT 1 mIU/mL Normal [facility] Comment on above: Performed By: #### P REGQNT #### [facility] [address] [address] [address] Meghan Vital HCG RANGE SEE BELOW Normal [facility] Comment on above: Result Comment: 5-50 0.2-1 WEEK 50-500 1-2 WEEKS 100-5,000 2-3 WEEKS 500-10,000 3-4 WEEKS 1,000-50,000 4-5 WEEKS 10,000-100,000 5-6 WEEKS 15,000-200,000 6-8 WEEKS 10,000-100,000 2-3 MONTHS Performed By: #### P REGQNT #### [facility] [address] [place] [address] Dr. Meghan Vital XR HYSTEROSALPINGOGRAMon XR HYSTEROSALPINGOGRAM [...] YADIRA BAKER Date: 2022-07-12 12:12 Normal [facility] PROGESTERONEon 06-30-2022 Progesterone 20.9 ng/mL Normal [facility] Comment on above: Result Comment: Foll icular phase 0.1 - 0.9 Luteal phase 1.8 - 23.9 Ovulation phase 0.1 - 12.0 First trimester 11.0 - 44.3 Second trimester 25.4 - 83.3 Third trimester 58.7 - 214.0 Postmenopausal 0.0 - 0.1 Performed By: #### P ROGES #### [facility] [address] [place] [address] Dr. Meghan Vital HCG-BETA SUBUNIT QUANTon hCG,Beta Subunit,Qnt,Serum <1 Normal [facility] Comment on above: Result Comment: Fema le (Non-) 0 - 5 (Postmenopausal) 0 - 8 . Female () Weeks of Gestation 3 6 - 71 4 10 - 750 5 217 - 7138 6 158 - 51349 7 1967 -[phone] 8 53816 -576583 9 94839 -804849 10 96872 -938819 12 47976 -268382 14 54574 - 70252 15 02095 - 02899 16 9040 - 26172 17 8175 - 11666 18 8099 - 80248 Jeremy ECLIA methodology Performed By: #### H CGSUB #### [facility] [address] [place] [address] Dr. Meghan Vital HCG-BETA SUBUNIT QUANTon hCG,Beta Subunit,Qnt,Serum <1 Normal [facility] Comment on above: Result Comment: Fema le (Non-) 0 - 5 (Postmenopausal) 0 - 8 . Female () Weeks of Gestation 3 6 - 71 4 10 - 750 5 217 - 7138 6 158 - 63468 7 3697 -189514 8 55013 -995830 9 88425 -677960 10 06594 -884178 12 83665 -951016 14 27607 - 63318 15 87002 - 18960 16 9040 - 44084 17 8175 - 91231 18 8099 - 56943 Jeremy ECLIA methodology Performed By: #### H CGSUB #### [facility] [address] [place] [address] Dr. Meghan Vital PROGESTERONEon 02-26-2022 Progesterone <0.1 Normal [facility] Comment on above: Result Comment: Foll icular phase 0.1 - 0.9 Luteal phase 1.8 - 23.9 Ovulation phase 0.1 - 12.0 First trimester 11.0 - 44.3 Second trimester 25.4 - 83.3 Third trimester 58.7 - 214.0 Postmenopausal 0.0 - 0.1 Performed By: #### P PHIL #### [facility] [address] [place] [address] Dr. Meghan Vital US PELVIS AND TRANSVAGon [...] Date: 2022-02-24 16:57 Normal [facility] Ambulatory Clinical Summaryo n 12-22-2020 Ambulatory Clinical Summary {[id number]}CD:61 4368 Normal [facility] Office/Clini c Noteon 12-22-2020 Family Medicine [...] documented 3008F Office Visit Level 2 Est 71301 2. Tobacco use (Z72.0: Tobacco use) We [...] smoker 1034F Office Visit Level 2 Est 68265 3. Hordeolum externum right lower eyelid (H00.012: Hordeolum externum right lower eyelid) Will treat with bacitracin ointment. May use warm compresses 3-4 x day. FU with PCP if not gradually improving over next 7 days, sooner if significantly spreading erythema, edema, warmth, fever. Patient verbalized understanding of tx plan Ordered: Office Visit Level 2 Est 64263 Orders: erythromycin ophthalmic, 0.5 in, OPTH, QID for 7 day(s), 3.5 gm, Refill(s) 0, to right eye, [facility], 163, cm, 12/22/20 15:32:00 EDT, Height/Length Dosing, [...] Family History Family history is negative Normal [facility] Comment on above: Result Comment: Elec tronically Signed By: YUE BHAGAT, Ara Crane\.br\Date and Time Signed: 12/22/20 16:05 EDT Patient [...] methods. Where to find more information ? [place]: www.lung.org ? [place]: www.cancer.org Summary ? Smoking cigarettes [...] Reviewed: 08/18/2017 Elsevier Patient Education ? 2019 Novacem. [facility] Provider Letteron 12-22-2020 Provider Letter (Inserted Image. Mary ble to display) December 22, 2020 FARTUN RODRÍGUEZ [address] [place] [phone] FARTUN RODRÍGUEZ 1985 To Whom It May Concern, Please excuse above patient from work. Date of Illness:12/22/2020 May Return to Work On:12/23/2020 Comments: _ Patient was seen in office today, she may return at the date listed above Sincerely, [facility] [address] [place] [address], [place] [address] [facility] Ambulatory Clinical Summaryo n 11-17-2020 Ambulatory Clinical Summary {[id number]}CD:61 4368 [facility] Family Medicine Office/Clini c Noteon 11-17-2020 Family Medicine Office/Clinic Note Chief Complaint [employer] cough HPI Staff Patient presents with cough [...] of bronchitis at this time with a Z-Gail course discussed with patient. We will also [...] day(s), # 6 tab(s), Refills(s) 0, Pharmacy: [facility], 163, cm, 11/17/20 16:59:00 EDT, Height/Length Dosing, 59, kg, 11/17/20 16:59:00 EDT, Weight Dosing benzonatate, 200 mg = 1 cap(s), Oral, TID, X 10 day(s), # 30 cap(s), Refills(s) 0, Pharmacy: [facility], 163, cm, 11/17/20 16:59:00 EDT, Height/Length Dosing, [...] to help relieve symptoms, such as: ? Jnvo-jad-shvjfeu cold medicines. ? Cough suppressants. Coughing is [...] other clear broths. General instructions ? Take rfii-bjy-spcifaj and prescription medicines only as told by [...] and water are not available, use hand recreation therapist. ? Avoid touching your mouth, face, eyes, [...] common infecti (more content not included)... Normal [facility] Provider Letteron 11-17-2020 Provider Letter (Inserted Image. Mary ble to display) November 17, 2020 FARTUN RODRÍGUEZ [address] [place] [phone] FARTUN RODRÍGUEZ 1985 To Whom It May Concern, Please excuse above patient from work. Date of Illness: From: 11/17/2020 To: 11/18/2020 May Return to Work On:11/19/2020 Comments: Patient above was seen at [facility] on 11/17/2020. Sincerely, [facility] [address] [place] [address] [facility] Provider Letteron 09-22-2020 Provider Letter (Inserted Image. Mary ble to display) September 22, 2020 FARTUN RODRÍGUEZ [address] [place] [phone] FARTUN RODRÍGUEZ 1985 To Whom It May Concern, Please excuse above patient from work. Date of Illness: From: 09/22/2020 May Return to Work On:09/23/2020 Comments: The above patient may return back to work on the above date. Sincerely, [facility] [address] [place] [id number] [facility] SURGICAL PATH REPORTon 07-31 SURGICAL PATH REPORT [facility] Department of Pathology [address] [place] [phone] Name: FARTUN RODRÍGUEZ : 1985 [employer] [id number] Number: Gender: Female Location: [facility] Admit 34 years Attending FERMÍN HURTADO Age: Provider: Ordering FERMÍN HURTADO Provider: Consulting: Surgical Pathology Report ACCESSION: COLLECTED DATE/TIME: RECEIVED DATE/TIME: PATHOLOGIST: [id number] 07/30/2020 13:19 EST 07/30/2020 13:19 SHADE DILL MD Final Diagnosis Report for [facility] [place] [place] [employer]: - [employer]. [...] cm. There are no grossly identifiable parts. Electronic Imager sections are submitted in three cassettes. TERRI/ekaterina 07/30/2020 Tissue pathology report for: [facility], [address] [place] [address]; Print Date/ 07/31/2020 15:05 EST Number: Time: [facility] Department of Pathology [address] [place] [phone] Name: FARTUN RODRÍGUEZ : 1985 [facility] [id number] Number: Gender: Female Location: [facility] Admit 34 years Attending FERMÍN HURTADO Age: Provider: Ordering FERMÍN HURTADO Provider: Consulting: Surgical Pathology Report ACCESSION: COLLECTED DATE/TIME: RECEIVED DATE/TIME: PATHOLOGIST: [id number] 07/30/2020 13:19 EST 07/30/2020 13:19 SHADE DILL MD Gross Description PATHOLOGY SERVICES PROVIDED BY [employer] (CLIA #[id number]) in cooperation with [facility] at [address] [place] [address] (CLIA #[id number]) Codes CPT CODE: 26532 Print Date07/31/2020 15:05 EST Number: Time: Normal [facility] Comment on above: Performed By: #### [id number] #### [facility] Services [address] [place], [place] [id number] Supervisor Lump Room: Shade Muller MD Consenton 05-29-2020 Consent [id number]:127 Normal [facility] Center Registrationon 05-29-2020 Registration [id number] [facility] Influenza A,Bon 11-08-2018 Influenza A, Rapid Ag Negative Normal Negative [facility] Comment on above: Performed By: #### [id number] #### [facility] [address] [place] [address] Influenza B, Rapid Ag Negative Normal Negative [facility] Comment on above: Performed By: #### [id number] #### [facility] [address] [place] [address] Urinalysis with Reflex Cultu reon 11-08-2018 Appearance Nom (U) Clear Normal Clear [facility] Comment on above: Performed By: #### U ARFX #### [facility] [address] [place] [address] Ascorbic Acid Negative Normal Negative [facility] Comment on above: Performed By: #### U ARFX #### [facility] [address] [place] [address] Automated Urine Microscopy Not indicated Normal [facility] Comment on above: Performed By: #### U ARFX #### [facility] [address] [place] [address] Bilirubin mass conc Negative Normal Negative [facility] Comment on above: Performed By: #### U ARFX #### [facility] [address] [place] [address] Blood Negative Normal Negative [facility] Comment on above: Performed By: #### U ARFX #### [facility] [address] [place] [address] Color Nom (U) Yellow Normal [facility] Comment on above: Performed By: #### U ARFX #### [facility] [address] [place] [address] Glucose mass conc 50 mg/dL Abnormal Negative [facility] Comment on above: Performed By: #### U ARFX #### [facility] [address] [place] [address] Ketones Ql (U) Negative Normal Negative [facility] Comment on above: Performed By: #### U ARFX #### [facility] [address] [place] [address] Leukocytes Esterase Negative Normal Negative [facility] Comment on above: Performed By: #### U ARFX #### [facility] [address] [place] [address] Nitrite Ql (U) Negative Normal Negative [facility] Comment on above: Performed By: #### U ARFX #### [facility] [address] [place] [address] pH (Bld) 5.0 Normal 5.0-9.0 [facility] Comment on above: Performed By: #### U ARFX #### [facility] [address] [place] [address] Protein mass conc (U) Negative Normal Negative [facility] Comment on above: Performed By: #### U ARFX #### [facility] [address] [place] [address] Specific gravity Relative Density (U) 1.026 Normal 1.003-1.03 5 [facility] Comment on above: Performed By: #### U ARFX #### [facility] [address] [place] [address] Urobilinogen Qn (U) <2.0 Normal Negative [facility] Comment on above: Result Comment: Due to a manufacturing issue, low positive urobilinogen results may be falsely positive. Correlate with urine bilirubin and additional clinical/laboratory findings to assess the risk of hemolytic anemia or liver disease. If clinically indicated, repeat testing with an alternate method is available by contacting the laboratory within 24 hours. Performed By: #### U ARFX #### [facility] [address] [place] [address] STREP GROUP A AG QUALon 08-29 STREP GROUP A AG QUAL STREP GROUP A AG Q UAL GROUP A STREP NEGATIVE FOR STREPTOCOCCUS GROUP A ANTIGEN THROAT CULTURE: REFERRED TO [facility] FOR CULTURE CONFIRMATION CULTURE RESULT: CULTURE NEGATIVE FOR BETA STREP GROUP A Normal [facility] Comment on above: Performed By: #### M STREPA ####[facility] [id number] [place] [id number] ED Provider Reporton 018 ED Provider Report [facility] [place] [place], [place] [address]Patient Name: FARTUN RODRÍGUEZ : 87Acct #: [id number] Unit #: [id number] ER Arrival Date: 09/21/17 ER Physician: Yoshi [...] illicit drug usePast Social HistorySmoking Status:FORMER SMOKERTobacco UseCIGARETTESPacks/Mgj4Uchw :LESS THAN 1 YEAR AGOReview of SystemsReview [...] Resp B/P B/P Pulse O2 O2 Flow TqU5Ecpr Ox Delivery Rate09/21 1712 36.5 83 18 [...] to follow-up with PCP.Disposition DecisionDischargeDispositio n Date09/21/17Decision [id number] obiologyDate/Time Procedure - StatusSource Txuxmm07/25 1745 Group A Streptococcus Screen (BETHANY) - [...] DO 09/22/17 1146 Normal [facility] Vital Signs Date Time Vital Sign Value Performing Clinician Facility 11-12-2024 10:00-0400 Body mass index (BMI) [Ratio] 30.18 kg/m2 [employer] Work Phone: [facility] 11-12-2024 10:00-0400 Body weight 79.74 kg [employer] Work Phone: [facility] 11-12-2024 10:00-0400 Diastolic blood pressure 72 mm[Hg] [employer] Work Phone: [facility] 11-12-2024 10:00-0400 Systolic blood pressure 100 mm[Hg] Fermín [email or web address] Work Phone: [facility] 10-29-2024 10:05-0500 Body mass index (BMI) [Ratio] 31.21 kg/m2 Fermín Bryant DO Work Phone: [facility] 10-29-2024 10:05-0500 Body weight 82.46 kg Fermín Bryant DO Work Phone: [facility] 10-29-2024 10:05-0500 Diastolic blood pressure 64 mm[Hg] Fermín Bryant DO Work Phone: [facility] 10-29-2024 10:05-0500 Systolic blood pressure 100 mm[Hg] Fermín Bryant DO Work Phone: [facility] 10-03-2024 11:32-0500 Body mass index (BMI) [Ratio] 30.04 kg/m2 Fermín Bryant DO Work Phone: [facility] 10-03-2024 11:32-0500 Body weight 79.38 kg Fermín Bryant DO Work Phone: [facility] 10-03-2024 11:32-0500 Diastolic blood pressure 68 mm[Hg] Fermín Bryant DO Work Phone: [facility] 10-03-2024 11:32-0500 Systolic blood pressure 120 mm[Hg] Fermín Bryant DO Work Phone: [facility] 09-06-2024 10:13-0500 Body weight 77.11 kg Ermelinda Nichols MD Work Phone: [facility] 09-04-2024 15:21-0500 Body mass index (BMI) [Ratio] 28.8 kg/m2 Fermín Bryant DO Work Phone: [facility] 09-04-2024 15:21-0500 Body weight 76.11 kg Fermín Bryant DO Work Phone: [facility] 09-04-2024 15:21-0500 Diastolic blood pressure 64 mm[Hg] Fermín Bryant DO Work Phone: [facility] 09-04-2024 15:21-0500 Systolic blood pressure 100 mm[Hg] Fermín Bryant DO Work Phone: [facility] 07-31-2024 14:58-0500 Body mass index (BMI) [Ratio] 27.7 kg/m2 Fermín Bryant DO Work Phone: [facility] 07-31-2024 14:58-0500 Body weight 73.21 kg Fermín Bryant DO Work Phone: [facility] 07-31-2024 14:58-0500 Diastolic blood pressure 62 mm[Hg] Fermín Bryant DO Work Phone: [facility] 07-31-2024 14:58-0500 Systolic blood pressure 100 mm[Hg] Fermín Bryant DO Work Phone: [facility] 07-04-2024 15:55-0500 Body mass index (BMI) [Ratio] 27.48 kg/m2 [facility] 07-04-2024 15:55-0500 Body weight 72.63 kg [facility] Nurse [facility] 07-04-2024 15:55-0500 Diastolic blood pressure 60 mm[Hg] [facility] Nurse [facility] 07-04-2024 15:55-0500 Systolic blood pressure 110 mm[Hg] [facility] Nurse [facility] 05-31-2023 09:00-0400 Body height 162.56 cm Everett Oliveros Other [employer] Other 05-31-2023 09:00-0400 Body mass index (BMI) [Ratio] 24.54 kg/m2 Everett Oliveros Other [employer] Other 05-31-2023 09:00-0400 Body weight 64.86 kg Everett Oliveros Other [employer] Other 05-31-2023 09:00-0400 Diastolic blood pressure 65 mm[Hg] Everett Oliveros Other [employer] Other 05-31-2023 09:00-0400 Systolic blood pressure 98 mm[Hg] Everett Oliveros Other [employer] Other 11-08-2022 16:15-0400 Body height 162.56 cm Everett Oliveros Other [employer] Other 11-08-2022 16:15-0400 Body mass index (BMI) [Ratio] 25.4 kg/m2 Everett Oliveros Other [employer] Other 11-08-2022 16:15-0400 Body temperature 97.4 [degF] Everett Oliveros Other [employer] Other 11-08-2022 16:15-0400 Body weight 67.13 kg Everett Oliveros Other [employer] Other 11-08-2022 16:15-0400 Diastolic blood pressure 74 mm[Hg] Everett Oliveros Other [employer] Other 11-08-2022 16:15-0400 SaO2% (BldA) [Mass fraction] 99 % Everett Oliveros Other [employer] Other 11-08-2022 16:15-0400 Systolic blood pressure 120 mm[Hg] Everett Oliveros Other [employer] Other 06-12-2022 12:15-0400 Body height 162.56 cm Yolis James Other [employer] Other 06-12-2022 12:15-0400 Body mass index (BMI) [Ratio] 25.74 kg/m2 Yolis James Other [employer] Other 06-12-2022 12:15-0400 Body temperature 98.1 [degF] Yolis James Other [employer] Other 06-12-2022 12:15-0400 Body weight 68.04 kg Yolis James Other [employer] Other 06-12-2022 12:15-0400 Diastolic blood pressure 61 mm[Hg] Yolis James Other [employer] Other 06-12-2022 12:15-0400 Respiratory rate 18 /min Yolis James Other [employer] Other 06-12-2022 12:15-0400 SaO2% (BldA) [Mass fraction] 100 % Yolis James Other [employer] Other 06-12-2022 12:15-0400 Systolic blood pressure 108 mm[Hg] Yolis James Other [employer] Other Encounters Encounter Date Encounter Type Care Provider Facility Start: 11-20-2024 End: 11-20-2024 Clinisync Result Encounter Fermín Mendezo DO Work Phone: [facility] External Department Unsolicited Start: 11-20-2024 End: 11-20-2024 Clinisync Result Encounter Fermín Bryant DO Work Phone: [facility] External Department Unsolicited Start: 11-19-2024 End: 11-19-2024 ambulatory FERMÍN HURTADO [facility] Start: 11-12-2024 End: 11-12-2024 flow sheet Fermín Mendezo DO Work Phone: [facility] OB Comment on above: Third trimester preg [...] BRYANT Not Available Start: 10-28-2024 End: 10-28-2024 Refgaby Nichols MD Work Phone: [facility] at [facility] Comment on above: History of bariatric surgery Start: 10-09-2024 End: 10-09-2024 Clinisync Result Encounter Fermín Bryant DO Work Phone: [facility] External Department Unsolicited Start: 10-09-2024 End: 10-09-2024 Clinisync Result Encounter Fermín Bryant DO Work Phone: [facility] External Department Unsolicited Start: 10-08-2024 End: 10-08-2024 ambulatory FERMÍN R. BRYANT [facility] Start: 10-03-2024 End: 10-03-2024 Bamboo flowsheet Fermín [...] Jazmine Black RN Maternal- Medic ine at [facility] Comment on above: resulting from assisted reproductive technology, second trimester (Primary Dx); Low lying placenta nos or without hemorrhage, second trimester; Advanced maternal age in multigravida, second trimester Start: 09-06-2024 End: 09-06-2024 Office consultation new/estab patient 60 min Ermelinda Nichols MD Work Phone: [facility]aternal- Medicine at [facility] Comment on above: resulting from assisted reproductive technology, second trimester (Primary Dx); 21 weeks gestation of ; History of bariatric surgery; Advanced maternal age, 1st , second trimester; Low lying placenta nos or without hemorrhage, second trimester Start: 09-06-2024 End: 09-06-2024 [facility] Start: 09-04-2024 End: 09-04-2024 flow sheet Fermín Bryant DO Work Phone: [facility] Comment on above: Second trimester [...] Nichols MD Work Phone: [facility]- [facility] Start: 08-08-2024 End: 08-11-2024 Clinisync Result Encounter Fermín Bryant DO Work Phone: [facility] External Department Unsolicited Start: 08-08-2024 End: 08-11-2024 Clinisync Result Encounter Fermín Bryant DO Work Phone: [facility] External Department Unsolicited Start: 07-31-2024 End: 07-31-2024 Patient encounter procedure Fermín Bryant DO Work Phone: [facility] Healthcare Start: 07-31-2024 End: 07-31-2024 Periodic preventive [...] 05-31-2023 End: 05-31-2023 ambulatory Everett Oliveros Other [employer] Other Start: 05-31-2023 Office outpatient vi sit 15 minutes Everett Olivreos [facility] Start: 01-17-2023 End: 01-25-[address] FERMÍN HURTADO . Facility:[facility] Start: 01-09-2023 End: 01-10-[address] FERMÍN HURTADO . Facility:[facility] Start: 11-26-2022 Letter encounter Luisa Ge [employer] Work Phone: [facility] Start: 11-21-2022 End: 11-21-[address] FERMÍN HURTADO . Facility:[facility] Start: 11-21-2022 End: 11-22-[address] FERMÍN HURTADO . Facility:[facility] Start: 11-08-2022 End: 11-08-2022 ambulatory Everett Oliveros Other [employer] Other Start: 11-08-2022 Office outpatient vi sit 15 minutes Everett Oliveros [facility] Start: 10-11-2022 End: 10-12-[address] FERMÍN HURTADO . Facility:[facility] Start: 09-23-2022 End: 09-24-[address] FERMÍN HURTADO . Facility:[facility] Start: 09-04-2022 Letter encounter Luisa Ge [employer]NV[employer]ant[employer] Work Phone: [facility] Start: 07-12-2022 End: 07-12-[address] FERMÍN HURTADO . Facility:[facility] Start: 06-29-2022 End: 06-30-[address] FERMÍN HURTADO . Facility:[facility] Start: 06-12-2022 End: 06-12-2022 ambulatory Yolis James Other [employer] Other Start: 06-12-2022 Office outpatient ne w [...] LISTED REQUEST Facility: Start: 05-11-2020 ambulatory RoyceAlexia DANIEL Facility:[facility] Start: 11-07-2018 End: 11-08-2018 Emergency department patient visit NO FAMILY DOCTOR NO FAMILY DOCTOR Facility:[facility] [employer] Start: 09-21-2017 Emergency department patient visit No Family Physician Facility[place] Procedures Date Procedure Procedure Detail Performing Clinician Start: 11-20-2024 US OB BPP W NON-STRESS Fermín Bryant DO Work Phone: Start: 11-12-2024 Urnls dip stick/tabl et rgnt [...] in Cervix by Cyto stain Luisa Ge APRN-NURSING TECH Work Phone: Plan of Treatment Date Care Activity Detail Author Start: 2036 Shingles (RZV) Vacci ne (1 of 2) Shingles (RZV) Vaccine (1 of 2) [facility] Start: 07-31-2027 Screening for malign ant neoplasm of cervix Pap Smear [email or web address] Start: 09-09-2025 End: 09-09-2025 US MFM with or without consult US MFM with or without consult Imaging Routine resulting from assisted reproductive technology, second trimester Low lying placenta nos or without hemorrhage, second trimester Advanced maternal age in multigravida, second trimester Expected: 09/09/2025 (Approximate), Expires: 09/09/2025 [employer] Work Phone: Comment on above: Expected: 09/09/2025 (Approximate), Expires: 09/09/2025 Start: 09-06-2025 Tobacco Screening [email or web address] Start: 11-26-2024 End: 11-26-2024 Patient encounter procedure 11/26/2024 9:10 AM EDT Routine [facility] [address] [place] [address] Fermín Hurtado, DO [address] [place] [address] [facility] Start: 11-19-2024 Subsequent hospital visit by physician 11/19/2024 1:00 PM EDT Hospital Encounter [facility] - Ultrasound [address] [place] [id number] [facility] Start: 11-12-2024 End: 11-12-2025 US [...] AM EDT Routine [facility] [address] [place] [id number] Fermín Hurtado, DO [address] [place] [address] [facility] Start: 10-29-2024 End: 10-29-2024 Patient encounter procedure [facility] Comment on above: Arrived Start: 10-08-2024 End: 10-08-2024 Patient encounter procedure 10/08/2024 2:15 PM EST Appointment [facility] - Ultrasound [address] [place] [id number] [facility] Start: 10-03-2024 End: 10-03-2025 CBC panel - Blood by Automated count CBC Lab Routine Diabetes mellitus screening Expected: 10/03/2024 (Approximate), Expires: 10/03/2025 [facility] Work Phone: Comment on above: Expected: 10/03/2024 (Approximate), Expires: 10/03/2025 Start: 10-03-2024 End: 10-03-2024 Patient encounter procedure 10/03/2024 11:10 AM EST Routine [facility] [address] [facility] [place] [id number] Fermín Hurtado, DO [address] [place] [address] [place] [address] Arrived [facility] Comment on above: Arrived Start: 10-03-2024 End: 10-03-2024 Patient encounter procedure 10/03/2024 8:50 AM EST Routine [facility] [address] [facility] [place] [id number] Fermín Hurtado, DO [address] [place] [address] [place] [address] [facility] Start: 09-06-2024 End: 09-06-2024 Patient encounter procedure [facility] Start: 09-04-2024 End: 09-04-2024 [...] gestational age Expected: 07/04/2024 (Approximate), Expires: 07/04/2025 [facility] Healthcare Comment on above: Expected: 07/04/2024 (Approximate), Expires: 07/04/2025 Start: 07-04-2024 End: 07-04-2025 Blood type and Indirect antibody screen panel - Blood Type and screen Lab Routine Missed menses , unspecified gestational age Expected: 07/04/2024 (Approximate), Expires: 07/04/2025 [facility] Work Phone: Comment on above: Expected: 07/04/2024 (Approximate), Expires: 07/04/2025 Start: 07-04-2024 End: 07-04-2025 Drugs of abuse panel - Urine by Screen method Rapid drug screen, urine Lab Routine , unspecified gestational age Encounter for supervision of normal first in first trimester Expected: 07/04/2024 (Approximate), Expires: 07/04/2025 [facility] Healthcare Comment on above: Expected: 07/04/2024 (Approximate), Expires: 07/04/2025 Start: 04-28-2024 Influenza vaccination Influenza Vacc ine [facility] Start: 06-26-2023 Tetanus vaccination Tetanus (T d or Tdap) [facility] Start: 07-08-2022 Screening for malign ant neoplasm of cervix [facility]ear [facility] Start: 05-28-2022 Influenza vaccination Influenza Vacc ine (#1) [facility] Start: 2007 Screening for malign ant neoplasm of cervix Pap Smear [facility] Start: 2005 DTaP,Tdap and Td Vaccines (1 - Tdap) DTaP,Tdap and Td Vaccines (1 - Tdap) [facility] Start: 2004 Adult BMI Screening Adult BMI Screen ing [facility] Start: 1998 Depression Screening Depression Scre ening [facility] Start: 1998 Tobacco Screening Tobacco Screening [facility] Start: 02-23-1987 COVID-19 Vaccine (#1) COVID-19 Vacci ne (#1) [facility] Start: 1986 Screening for malign ant neoplasm of breast Mammography shared decision making (35 through 39 years) [facility] Bacteria identified in Urine by Culture Urine culture Microbiology Routine Missed menses Ordered: 07/04/2024 [facility] Comment on above: Ordered: 07/04/2024 CBC W Auto Different ial panel - Blood CBC and differential Lab Routine Missed menses , unspecified gestational age Ordered: 07/04/2024 [facility] Comment on above: Ordered: 07/04/2024 CHLAMYDIA TRACHOMATI S (GENITO/STI) CHLAMYDIA TRACHOMATIS (GENITO/STI) Lab Routine Exposure to STD Ordered: 07/31/2024 [facility] Comment on above: Ordered: 07/31/2024 Cytology Cervical or vaginal smear or scraping study Pap Smear Pathology and Cytology Routine Well woman exam with routine gynecological exam Ordered: 07/31/2024 [facility] Comment on above: Ordered: 07/31/2024 Hemoglobin A1c/Hemoglobin.total in Blood Hemoglobin A1c Lab Routine Missed menses , unspecified gestational age Ordered: 07/04/2024 [facility] Comment on above: Ordered: 07/04/2024 Hepatitis B virus surface Ag [Presence] in Serum or Plasma by Immunoassay Hepatitis B surface antigen Lab Routine Missed menses , unspecified gestational age Ordered: 07/04/2024 [facility] Comment on above: Ordered: 07/04/2024 Hepatitis C virus Ab [Presence] in Serum or Plasma by Immunoassay Hepatitis C antibody Lab Routine Missed menses , unspecified gestational age Ordered: 07/04/2024 [facility] Comment on above: Ordered: 07/04/2024 HIV-1/HIV-2 antigen/antibody combination immunoassay HIV-1 and HIV-2 antibodies Lab Routine Missed menses , unspecified gestational age Ordered: 07/04/2024 [facility] Comment on above: Ordered: 07/04/2024 Human papilloma viru s DNA [Presence] in Unspecified specimen by Probe with amplification HPV DNA probe, amplified Microbiology Routine Well woman exam with routine gynecological exam Ordered: 07/31/2024 [facility] Comment on above: Ordered: 07/31/2024 Neisseria gonorrhoea e DNA [Presence] in Unspecified specimen by SANJU with probe detection Neisseria gonorrhea DNA probe, direct Lab Routine Exposure to STD Ordered: 07/31/2024 [facility] Comment on above: Ordered: 07/31/2024 Reagin Ab [Presence] in Serum by RPR RPR Lab Routine Missed menses , unspecified gestational age Ordered: 07/04/2024 [facility] Comment on above: Ordered: 07/04/2024 Rubella antibody, IgG Rubella an tibody, IgG Lab Routine Missed menses , unspecified gestational age Ordered: 07/04/2024 [facility] Comment on above: Ordered: 07/04/2024 SURESWAB(R) ADVANCED VAGINITIS PLUS, TMA SURESWAB(R) ADVANCED VAGINITIS PLUS, TMA Pathology and Cytology Routine Vaginal discharge Ordered: 07/31/2024 [facility] Work Phone: Comment on above: Ordered: 07/31/2024 Immunizations Immunization Date Immunization Notes Care Provider Ubaldo araujo 10-23-2013 tuberculin skin test ; purified protein derivative solution, intradermal Luisa Ross DINING ROOM BUSSER-NURSING TECH Work Phone: [facility] 06-26-2013 tetanus toxoid, redu thalia diphtheria toxoid, and acellular pertussis vaccine, adsorbed Luisa Ross DINING ROOM BUSSER-NURSING TECH Work Phone: [facility] 05-08-2013 human papilloma viru s vaccine, quadrivalent Luisa Ross DINING ROOM BUSSER-NURSING TECH Work Phone: [facility] 01-10-2013 human papilloma viru s vaccine, quadrivalent Luisa Ross DINING ROOM BUSSER-NURSING TECH Work Phone: [facility] 11-15-2012 human papilloma viru s vaccine, quadrivalent Luisa Ross DINING ROOM BUSSER-NURSING TECH Work Phone: [facility] 10-16-2010 tetanus toxoid, redu thalia diphtheria toxoid, and acellular pertussis vaccine, adsorbed Luisa Ross DINING ROOM BUSSER-NURSING TECH Work Phone: [facility] Payers Date Payer Category Payer [facility] [id number] 2023 [employer] [facility] [id number] 2023 Blue Cross Blue [facility] HUM [id number] 2.16.840.1.900716.19 2013 Medicaid [id number] 1986 Unknown [id number] 2.16.840.1.283855.3.579.2. 355 1986 Unknown [id number] 2.16.840.1.295704.3.579.2. 732 1986 Unknown [id number] 2.16.840.1.087365.3.579.2. 593 1986 Unknown [id number] 2.16.840.1.022713.3.579.2. 593 1986 Unknown [id number] 2.16.840.1.379201.3.579.2. 593 1986 Unknown [id number] 2.16.840.1.259798.3.579.2. 593 1986 Unknown [id number] 2.16.840.1.284858.3.579.2. 593 1986 Unknown [id number] 2.16.840.1.246342.3.579.2. 593 1986 Unknown [id number] 2.16.840.1.217109.3.579.2. 593 1986 Unknown [id number] 2.16.840.1.338410.3.579.2. 593 1986 Unknown [id number] 2.16.840.1.815102.3.579.2. 593 1986 Unknown [id number] 2.16.840.1.393388.3.579.2. 593 1986 Unknown [id number] 2.16.840.1.685030.3.579.2. 593 1986 Unknown [id number] 2.16.840.1.176004.3.579.2. 593 1986 Unknown [id number] 2.16840.1.017208.3.579.2. 593 1986 Unknown [id number] 2.16.840.1.181227.3.579.2. 1286 1986 Unknown [id number] 2.16840.1.509893.3.579.2. 1286 1986 Unknown [id number] 2.16840.1.260912.3.579.2. 1259 1986 Unknown [id number] 2.16840.1.794757.3.579.2. 1259 1986 Unknown [id number] 2.16.840.1.664703.3.579.2. 1259 1986 Unknown [id number] 2.16.840.1.825852.3.579.2. 1259 1986 Unknown [id number] 2.16.840.1.486280.3.579.2. 1259 1986 Unknown [id number] 2.16.840.1.584772.3.579.2. 1259 1986 Unknown [id number] 2.16.840.1.844831.3.579.2. 1286 1986 Unknown [id number] 2.16.840.1.497660.3.579.2. 1286 1959 Medicaid [id number] 1958 Medicaid [id number] 2.16.840.1.023402.19 Social History Date Type Detail Facility Start: 09-06-2024 Sex Assigned At [employer] Other Start: 10-17-2017 Tobacco smoking status NHIS Ex-smoker [facility] End: 03-28-2017 History of tobacco [...] [facility] Start: 1985 [facility] stat [facility] Tobacco smoking consumption unknown [facility] Healthcare Start: 04-20-2024 [facility] Healthcare Start: 06-03-2023 Gender identity Identifies as female gender (finding) [facility] Healthcare Start: 06-03-2023 Sexual orientation Heterosexual (finding) [facility] Healthcare Start: 09-06-2024 Tobacco smoking status MAIS Never smoked tobacco [facility] Start: 09-06-2024 Alcoholic beverage intake Ex-drinker (finding) [facility] Within the past 12 months we worried whether our food would run out before we got money to buy more. Never True [facility] Start: 1985 Sex assigned at Not on file [facility] [employer] [facility] Start: 08-06-2024 Sex Female (finding) [facility] Goals Date Patient Goal Desired Activity /State Personal health goal Clinical Notes 06-12-2022 to 11-12-2024 Patrciia Carter LPN - 11/12/2024 10:00 AM EDKarin Gentile, [employer] - 10/29/2024 10:10 AM ESTSnettie Tyr, [employer] - 10/03/2024 11:10 AM Sara Del Castillo, [facility] - 09/06/2024 11:00 AM EST Note Date & Type Note Facility 11-12-2024 History of Present illness Narrative Reason for Appointment: Patient ID: Fartun Hall is a 39 y.o. female who presents for Routine Visit Patient presents today for Return OB appointment. 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 Exam conducted with a elementary assistant teacher present. Vitals: Estimated body mass index is [...] Fermín Hurtado DO documented in this encounter [facility] 10-29-2024 History of Present illness Narrative Reason for Appointment: Patient ID: Fartun Hall is a 39 y.o. female who presents for Routine Visit Patient presents today for Return OB appointment. MEDICATIONS Current Outpatient Medications Medication Instructions aspirin 81 mg, Daily Continuous Glucose Digital Sales Executive ([employer] G6 asset protection professional) device Use as instructed Continuous Glucose Sensor [...] nursing note reviewed. Exam conducted with a elementary assistant teacher present. Vitals: Estimated body mass index is [...] noted bilaterally. Patient is currently still seeing [facility] for growth scan/NST/BPP. Patient to return to clinic in 2 weeks and then she will be able to decide if she would like to have NST/BPPs done locally or continue with MFM. Patient voiced that she is unabl eto put her work shoes on due to swelling and will be taking off work midway through this month. Documented by Trupti Gentile LPN on behalf of: Fermín Hurtado DO documented in this encounter [facility] 10-03-2024 History of Present illness Narrative Reason [...] nursing note reviewed. Exam conducted with a elementary assistant teacher present. Vitals: Estimated body mass index is [...] 01/12/25. Patient has follow up US with [facility] to clear heart. Patient will notify office after next [facility] appointment if she would like to have [...] obtained supplies she will reach out to Treating Machine Operator to have device placed on arm, patient was given blood sugar logs to bring to next appointment for review once device is placed. Documented by Trupti Gentile LPN on behalf of: Fermín Hurtado DO documented in this encounter [facility] 09-06-2024 History of Present illness Narrative Headache/epigastric [...] female Have you been seen here at [facility] in a previous ? No Recent ER visits or hospitalizations? No Bring blood sugar log or meter with you today? (Please bring them with you for every visit at [facility]) n/a Flu vaccine (Jun-October)? No Any [...] Allergies CURRENT MEDICATIONS: Current Outpatient Medications: ferrous [id number] C-folic acid (FOLTRIN) 110-0.5 mg capsule, Take 1 capsule by mouth every morning before breakfast., Disp: , Rfl: [id number] acid ( 19) 29 mg iron- 1 [...] ULTRASOUND REPORTS: Referral records and [facility] chart were reviewed Pertinent Ultrasound findings are [...] those pregnancies occurring naturally (1.3% vs 0.7%). [facility] suggest that echocardiogram be offered [...] aspirin vs 10.3% no aspirin, p=0.45) (PMBID: [id number]). Given well-established benefits baby aspirin for the prevention of preeclampsia, I recommend initiating baby aspirin even in the setting of history of Alberto-en-Y surgery. PPI prophylaxis is additionally recommended by bariatric surgeons, 20 mg daily ordered today in addition to aspirin 81 mg daily. Micronutrient Dosing Recommendations: Calcium: recommend 1000-1200mg daily; if deficient, recommend 1800-15946 mg PO daily in divided doses Vitamin [...] ultrasound, attempt completion in 4-6 weeks at [facility] Repeat growth ultrasound along with transvaginal ultrasound to re-evaluate placental location in 11 weeks at 32 weeks gestation, through [facility] Repeat growth ultrasound at 36-37 weeks [...] patient is in complete care of her child life assistant. Patient does have ultrasound scheduled with us. Thank you for allowing me to participate in the care of Fartun Hall. If there any questions please do not hesitate to contact us. Ermelinda Nichols MD Maternal- Medicine [id number] [place] [address] [facility], the CDC, and other organizations representing maternal and public health professionals recommend that , , and lactating people and those considering receive the COVID-19 vaccination. Vaccination is the best method to reduce maternal and complications of SARS-CoV-2 infection. This document was created with [employer] technology. Though I make every effort to review the dictation as it is transcribed, on occasion the spoken word can be misinterpreted by the technology leading to inappropriate words, phrases, or sentences. This note is addressed to the requesting provider as a consultation for clinical guidance. Specific medical abbreviations are occasionally used and those are generally approved by the [place]?Board of?Obstetrics and?Gynecology?as well as?Ruth ware abbreviations. The above plan of care was based solely on the diagnoses for which a consultation was requested. ?More frequent testing may be indicated based on her other medical/obstetrical conditions. The management of other or medical conditions is beyond the scope of requested consultation and will continue to be followed by the primary child life assistant or primary care provider. Note to patient: [...] of the practitioner. documented in this encounter [employer] 09-04-2024 History of Present illness Narrative Reason [...] nursing note reviewed. Exam conducted with a elementary assistant teacher present. Vitals: Estimated body mass index is [...] Delivery: 01/12/25. Pt having anatomy scan at [facility] on Monday. Pt has complaints of dry itchy ears. Drops called into pharmacy. Pt to return in 4 weeks for scheduled OB appt. Documented by Patricia Carter LPN on behalf of: Fermín Hurtado DO documented in this encounter [facility] 07-31-2024 History of Present illness Narrative Reason [...] nursing note reviewed. Exam conducted with a elementary assistant teacher present. Vitals: Estimated body mass index is [...] Fermín Hurtado DO documented in this encounter [facility] 07-04-2024 History of Present illness Narrative Reason [...] or undercooked meat, and stay away from [facility]. Patient has also been advised to [...] Shannon Farr LPN documented in this encounter [facility] 05-31-2023 Evaluation note Encounter Date Diagnosis Assessment Notes May, Dandruff in adult (ICD-10 - L21.0) Trial of medicated shampoo. Call if no improvement. 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 Will add drop with steroid component. Discussed proper hearing protection - possibly ear muff style. Also discussed ENT referral if needed. [employer] Other 10-16-2022 Evaluation note* Encounter Date Diagnosis [...] water inside ear after shower may use department chairperson on lowest cool setting to blow dry. Follow up with PCP or UC if no improvement in the next 2-3 days. Immediate eval for severe ear pain, severe headache, neck pain/stiffness, pain, erythema, or swelling behind the ear, fever, N/V, hearing loss, fever, or any other new or concerning symptoms. Patient verbalizes understanding and is agreeable to treatment plan [employer] Other Evaluation note* Diagnosis Missed menses , unspecified gestational age Encounter for supervision of normal first in first trimester documented in this encounter [facility] HealthcareEvaluation note* Diagnosis 16 weeks gestation of Second trimester state, incidental Well woman exam with routine gynecological exam Routine gynecological examination Screening, , for anatomic survey Encounter for anatomic survey Exposure to STD Vaginal discharge Leukorrhea, not specified as infective Ear infection Unspecified otitis media documented in this encounter [facility] HealthcareEvaluation note* Diagnosis Second trimester state, incidental 21 weeks gestation of documented in this encounter [facility] HealthcareEvaluation note* Diagnosis resulting from assisted reproductive technology, second trimester- Primary 21 weeks gestation of History of bariatric surgery Bariatric surgery status Advanced maternal age, 1st , second trimester Low lying placenta nos or without hemorrhage, second trimester [facility] Diagnosis resulting from assisted reproductive technology, second trimester- Primary Low lying placenta nos or without hemorrhage, second trimester Advanced maternal age in multigravida, second trimester [facility]* Diagnosis Diabetes mellitus screening Screening for diabetes mellitus 25 weeks gestation of Second trimester state, incidental History of bariatric surgery Bariatric surgery status resulting from in vitro fertilization, antepartum documented in this encounter [facility] HealthcareEvaluation note* Diagnosis History of bariatric surgery Bariatric surgery status [facility] Diagnosis Third trimester state, incidental 29 weeks gestation of documented in this encounter [facility]* Diagnosis Third trimester state, incidental 31 weeks gestation of Upper respiratory tract infection, unspecified type History of bariatric surgery Bariatric surgery status resulting from in vitro fertilization, antepartum Multigravida of advanced maternal age in third trimester documented in this encounter [facility] HealthcareHistory general [...] REPIAR 2017 Hospitalization History SEE SURGICAL HX [employer] Other InstructionsNot on filedocumented in this encounter [facility] [employer] SystemInstructionsNot on filedocumented in this encounter [facility] [employer] SystemInstructionsNot on filedocumented in this encounter [facility] [employer] [facility] Summary Purpose Family History No Family [...] section and content) DATE CREATED AUTHOR 02/19/2018 [facility] DATE CREATED AUTHOR AUTHOR'S ORGANIZ ATION 11/14/2018 [facility] Healthcare DATE CREATED AUTHOR AUTHOR'S ORGANIZ ATION 09/17/2020 [facility] DATE CREATED AUTHOR AUTHOR'S ORGANIZ ATION 12/23/2020 [facility] DATE CREATED AUTHOR AUTHOR'S ORGANIZ ATION 10/21/2021 [facility] DATE CREATED AUTHOR AUTHOR'S ORGANIZ ATION 02/03/2023 [facility] DATE CREATED AUTHOR AUTHOR'S ORGANIZ ATION 09/11/2024 [facility] DATE CREATED AUTHOR AUTHOR'S ORGANIZ ATION 11/14/2024 [facility] DATE CREATED AUTHOR AUTHOR'S ORGANIZ ATION 11/20/2024 [facility] REASON FOR VISIT (unrecogniz ed section and content) Reason Comments Amenorrhea Reason Comments Routine Visit Reason Comments ama Fertility Preservation Reason Comments Med Change Request Care Teams (unrecognized sec tion and content) Rn Pain Management Relationship Specialty Start Date End Date Luisa Ge APRN-NURSING TECH [address] [place] [phone] INTAKE CLINICIAN Pulmonary Medicine 06/02/20 Jamie Hardin MD [address] [place] [address] Physician General Surgery 06/02/20 Page Faulkner M.Ed., R.D., L.D. [address] [address] Dietitian Nutrition 06/02/20 Rita Catherine MD [address] [place] [phone] Physician Obstetrics/Gynecology 06/02/20 Rishabh Hi, DINING ROOM BUSSER-NURSING TECH [address] [place] [address] INTAKE CLINICIAN Anesthesiology 06/02/20 Rn Pain Management Relationship Specialty Start Date End Date Luisa Ge APRN-CNP [address] [place] [phone] INTAKE CLINICIAN Pulmonary Medicine 06/02/20 Jamie Hardin MD [address] [place] [address] Physician General Surgery 06/02/20 Page Faulkner M.Ed., R.D., L.D. [facility] [address] [place] [address] Dietitian Nutrition 06/02/20 Rita Catherine MD [address] [place] [address] Physician Obstetrics/Gynecology 06/02/20 Rishabh Hi, DINING ROOM BUSSER-NURSING TECH [address] [place] [address] INTAKE CLINICIAN Anesthesiology 06/02/20 Rn Pain Management Relationship Specialty Start Date End Date Everett Oliveros MD [address] [place] [facility] [place] [phone] PCP - General Family Medicine 03/29/23 Rn Pain Management Relationship Specialty Start Date End Date Everett Oliveros MD [address] [place] [facility] [place] [phone] PCP - General Family Medicine 03/29/23 Rn Pain Management Relationship Specialty Start Date End Date Everett Oliveros MD [address] [place] [facility] [place] [phone] PCP - General Family Medicine 03/29/23 Rn Pain Management Relationship Specialty Start Date End Date Everett Oliveros MD [address] [place] [facility] [place] [phone] PCP - General Family Medicine 03/29/23 Rn Pain Management Relationship Specialty Start Date End Date Everett Oliveros MD [address] [place] [facility] [place] [phone] PCP - General Family Medicine 03/29/23 Rn Pain Management Relationship Specialty Start Date End Date Everett Oliveros MD [address] [place] [facility] [place] [address] PCP - General Family Medicine 03/29/23 Rn Pain Management Relationship Specialty Start Date End Date Everett Oliveros MD [address] [place] [facility] [place] [phone] PCP - General Family Medicine 03/29/23 Rn Pain Management Relationship Specialty Start Date End Date Everett Oliveros MD [address] [place] [facility] [place] [address] PCP - General Family Medicine 03/29/23 Rn Pain Management Relationship Specialty Start Date End Date Everett Oliveros MD [address] [place] [facility] [address] PCP - General Family Medicine 03/29/23 Rn Pain Management Relationship Specialty Start Date End Date Everett Oliveros MD [address] [place] [facility] [address] PCP - General Family Medicine 03/29/23 Rn Pain Management Relationship Specialty Start Date End Date Everett Oliveros MD [address] [place] [facility] [address] PCP - General Family Medicine 03/29/23 FOR [...] BE BASED ON THE PRIMARY CLINICAL RECORDS. [facility]. provides no warranty or guarantee of the accuracy or completeness of information in this document.
== END 2024-11-23 11:40 | disposition home or self-care (01) ==
LOC: FBCO 10:58 → FBC 11:01
PROVIDERS: PCP Family Medicine; Visit Provider Obstetrics & Gynecology
DX: O26.893 Other specified pregnancy related conditions, third trimester (principal); Z3A.33 33 weeks gestation of pregnancy
CPT/HCPCS: 59025

== ENCOUNTER 2024-11-27 10:58 | Outpatient (OUT) | payer BC, SELFPAY ==
--- NOTE | 2024-11-27 | US_ITS ---
The [address] [address] Patient Name: FARTUN HALL MRN: [id number] date: 1985 Sex: F Assigned Patient Location: Current Patient Location: US Accession/Order Number: [id number] Exam Date: 11/27/2024 11:57 Report Date: 11/27/2024 11:59 At the request of: ANA PAULA JOHN DO Procedure: US OB BPP w non-stress BIOPHYSICAL PROFILE: CLINICAL INFORMATION: History of bariatric surgery Z98.84 COMPARISON: 11/20/2024 There is a single live intrauterine gestation in breech presentation. The reported gestational age is 33 weeks 4 days. The heart rate [id number] beats per minute. FINDINGS: TONE: 1 or more episodes of activity extension and flexion of extremity or opening and closing of the hand [Y] 2/2 GROSS BODY MOVEMENTS: 3 or more discrete body or limb movements [Y] 2/2 BREATHING MOVEMENTS: 1 or more episodes of breathing lasting at least 30 seconds [Y] 2/2 CYNTHIA: A single deepest vertical pocket of amniotic fluid greater than 2 cm [Y] 2/2 CYNTHIA: 11.4 cm. This is in low-normal range. Total score: 8/8 US/ OB BPP w non-stress IMPRESSION: NORMAL BIOPHYSICAL PROFILE. Impression dictated by: Patricia Gomez M.D.11/27/2024 11:59 AM Dictation Location: [place] [address] Electronically authenticated by: [id number] Date: 11/27/2024 11:59
[2024-11-27 11:27] VITALS: BP 115/71; PULSE 76
== END 2024-11-27 12:05 | disposition home or self-care (01) ==
LOC: US 10:58 → FBC 11:00
PROVIDERS: PCP Family Medicine; Visit Provider Obstetrics & Gynecology
DX: O09.813 Supervision of pregnancy resulting from assisted reproductive technology, third trimester (principal); O09.523 Supervision of elderly multigravida, third trimester; Z3A.33 33 weeks gestation of pregnancy; Z98.84 Bariatric surgery status
CPT/HCPCS: 76818

== ENCOUNTER 2024-11-30 10:57 | Outpatient (OUT) | payer BC, SELFPAY ==
--- OUTSIDE RECORDS SUMMARY | 2024-11-30 11:01 | XMS_ITS | CCD ---
Author Organization [facility] Care Team Providers Care Planning Official Name Role Phone No Family Physician Unavailable Unavailable No Family Physician Unavailable Unavailable NO FAMILY DOCTOR, NO FAMILY DOCTOR Primary Care Unavailable YANIAR MARTINO Attending Unavailable Swathi DANIEL Referring Unavailab le PROVIDER, UNKNOWN Attending Unavailable PROVIDER, UNKNOWN Admitting Unavailable WILSON CASTRO Primary Care Unavailable Yolis James Unavailable Joo PACKER, Luisa Unavailable [phone] Lashawn MESSER, Jamie Unavailable [phone] Kaushik West, R.Keyana., L.D., Page Unavailable Florin MESSER, Rita Unavailable Sussy PACKER, Rishabh NAlexia Unavailable [phone] Everett Oliveros Unavailable Joo PACKER, Luisa Unavailable [...] ble BRYANT ., DR GOSS Attending Unavailable [place], DR YANIRA Steele Consulting Unavailable BRYANT ., [...] DR GOSS Consulting Unavailable Arlin MESSER, Everett [facility] Provider Unavailable Primary Care Provider Unavailabl e BRYANT, FERMÍN R Referring Unavailable PHUC ERMELINDA Attending Unavailable BRYANT, FERMÍN R Referring Unavailable BRYANT, FERMÍN R. Referring Unavailable BRYANT, FERMÍN R. Referring Unavailable BRYANT, FERMÍN Attending Unavailable FERMÍN HURTADO Attending Unavailable FERMÍN HURTADO Attending Unavailable FERMÍN HURTADO Attending Unavailable FERMÍN HURTADO Attending Unavailable FERMÍN HURTADO Attending Unavailable Allergies Allergy Classification Reported Allergen(s) Allergy Type Date of Onset Reaction(s) Facility (3 sources) SEASONAL IC; Translations: [SEASONAL IC] Propensity to adverse reactions to drug (disorder) 9 [facility] Medications Current Medications Medication Drug [...] by mouth once daily before breakfast ferrous exnenrzn-f57-qafyon c C-folic acid (FOLTRIN) 110-0.5 mg capsule Take 1 capsule by mouth every morning before breakfast. Active aspirin 81 mg delayed release oral tablet (15 sources) Platelet Aggregation Inhibitor, Nonsteroidal Anti-inflammatory Drug [...] 1 Package 11 06/18/2019 Active Continuous Glucose Foreman Or Supervisor And Operator (Dexcom G6 timber hand) device (10 sources) Start: 10-09-2024 Continuous Glucose Foreman Or Supervisor And Operator (Dexcom G6 timber hand) device Indications: Diabetes mellitus screening , History of bariatric surgery Use as instructed 1 each 10/09/2024 Active Continuous Glucose Foreman Or Supervisor And Operator (FreeStyle [place] 3 [place]) device (3 sources) Start: 10-03-2024 End: 10-17-2024 Continuous Glucose Foreman Or Supervisor And Operator (FreeStyle Emmy 3 [place]) device Indications: Diabetes mellitus screening , History [...] Continuous Glucose Transmitter (Dexcom G6 transmitter) misc (9 sources) Start: 10-11-2024 Continuous Glucose Transmitter (Dexcom [...] / neomycin 3.5 mg/ml / polymyxin b 18033 unt/ml otic solution (1 source) Aminoglycoside Antibacterial, [...] omeprazole 20 mg delayed release oral capsule (18 sources) Proton Pump Inhibitor Start: 10-28-2024 take [...] Take 1 each by mouth Daily Active hs403-ilcz-vsgpb acid ( 19) 29 mg iron- 1 mg tablet,chewable (3 sources) le687-wrca-wdzta acid ( 19) 29 mg iron- 1 [...] Drug Class(es) Dates Sig (Normalized) Sig (Original) azithromycin 250 mg oral tablet (5 sources) Macrolide Antimicrobial Start: 11-12-2024 End: 11-26-2024 azithromycin (Zithromax Z-Adán) 250 MG tablet Indications: Upper respiratory tract infection, unspecified type As directed 6 tablet 11/12/2024 11/26/2024 Discontinued desogestrel 0.15 mg / ethinyl estradiol 0.03 [...] adiposity] Chronic Other and delivery including normal (17 sources) Encounter for test, result positive; Translations: [...] [31 weeks gestation of ] 11-12-2024 Episodic Residual codes; unclassified (2 sources) Gestation period, 33 weeks; Translations: [33 weeks gestation of ] 11-26-2024 Episodic Unclassified (1 source) Unknown / UNK(Unknown) Onset: 09-21-2017 Unclassified (3 sources) Diarrhea, unspecified; Translations: [Diarrhea, unspecified] Onset: 11-07-2018 Unclassified (17 sources) OB Reminders Onset: 08-08-2024 08-08-2024 Unclassified [...] Test Name Value Interpretation Reference Range Facility US OB BPP W NON-STRESS on 11-27-2024 [place] [address] Ultrasound Report Signed Patient: FARTUN HALL MR#: [id number] : 1985 Acct:[id number] Age/Sex: 39 / F ADM Date: 11/27/24 Loc: [facility] 250-[address]: Fermín Hurtado D.O. Ordering Physician: Fermín Hurtado D.O. Date of Service: 11/27/24 Procedure(s): US OB BPP w non-stress Accession Number(s): [id number] cc: Everett Oliveros M.D.; Fermín Hurtado D.O. The [address] [address] Patient Name: FARTUN HALL MRN: [facility]:[id number] date: 1985 Sex: F Assigned Patient Location: US Current Patient Location: US Accession/Order Number: [id number] Exam Date: 11/27/2024 11:57 Report Date: 11/27/2024 11:59 At the request of: FERMÍN HURTADO DO Procedure: US OB BPP w non-stress BIOPHYSICAL PROFILE: CLINICAL INFORMATION: History of bariatric surgery Z98.84 COMPARISON: 11/20/2024 There is a single live intrauterine gestation in breech presentation. The reported gestational age is 33 weeks 4 days. The heart rate [id number] beats per minute. FINDINGS: TONE: 1 or more episodes of activity extension and flexion of extremity or opening and closing of the hand [Y] 2/2 GROSS BODY MOVEMENTS: 3 or more discrete body or limb movements [Y] 2/2 BREATHING MOVEMENTS: 1 or more episodes of breathing lasting at least 30 seconds [Y] 2/2 CYNTHIA: A single deepest vertical pocket of amniotic fluid greater than 2 cm [Y] 2/2 CYNTHIA: 11.4 cm. This is in low-normal range. Total score: 8/8 US/US OB BPP w non-stress IMPRESSION: NORMAL BIOPHYSICAL PROFILE. Impression dictated by: Patricia Gomez M.D.11/27/2024 11:59 AM Dictation Location: [place] [address] Electronically authenticated by: [id number] Y Date: 11/27/2024 11:59 Dictated By: Patricia Gomez M.D. Signed By: 11/27/24 6737 DD/ 3329 TD/TT: Marketing Reporting Analyst: [facility] Radiology, Radiologeloina shultz MD - 11/27/2024 The [place] [id number] Ultrasound Report Signed Patient: FARTUN HALL MR#: [id number] : 1985 Acct:[id number] Age/Sex: 39 / F ADM Date: 11/27/24 Loc: [facility] 250-[address]: Fermín Hurtado D.O. Ordering Physician: Fermín Hurtado D.O. Date of Service: 11/27/24 Procedure(s): US OB BPP w non-stress Accession Number(s): [id number] cc: Everett Oliveros M.D.; Fermín Hurtado D.O. [place] [address] Patient Name: FARTUN HALL MRN: [facility]:[id number] date: 1985 Sex: F Assigned Patient Location: Current Patient Location: US Accession/Order Number: [id number] Exam Date: 11/27/2024 11:57 Report Date: 11/27/2024 11:59 At the request of: FERMÍN HURTADO DO Procedure: US OB BPP w non-stress BIOPHYSICAL PROFILE: CLINICAL INFORMATION: History of bariatric surgery Z98.84 COMPARISON: 11/20/2024 There is a single live intrauterine gestation in breech presentation. The reported gestational age is 33 weeks 4 days. The heart rate [id number] beats per minute. FINDINGS: TONE: 1 or more episodes of activity extension and flexion of extremity or opening and closing of the hand [Y] 2/2 GROSS BODY MOVEMENTS: 3 or more discrete body or limb movements [Y] 2/2 BREATHING MOVEMENTS: 1 or more episodes of breathing lasting at least 30 seconds [Y] 2/2 CYNTHIA: A single deepest vertical pocket of amniotic fluid greater than 2 cm [Y] 2/2 CYNTHIA: 11.4 cm. This is in low-normal range. Total score: 8/8 US/US OB BPP w non-stress IMPRESSION: NORMAL BIOPHYSICAL PROFILE. Impression dictated by: Patricia Gomez M.D.11/27/2024 11:59 AM Dictation Location: [place] [address] Electronically authenticated by: [id number] Y Date: 11/27/2024 11:59 Dictated By: Patricia Gomez M.D. Signed By: 11/27/24 1202 DD/ 1159 TD/TT: Marketing Reporting Analyst: [facility] Radiology Study observation (narrative) [facility] US OB BPP W NON-STRESS Ordered By: Radiologist Radiology on 11-27-2024 [facility] Work Phone: Urinalysis macro (dipstick) panel (U)on 11-26-2024 Bilirubin, UA Negative Negative - 4(70) +++ mg/dL [facility] Blood, UA Negative Negative - 50 Nnamdi/mcL [facility] Clarity, UA Clear [facility] Color, UA Yellow [facility] Glucose, UA Negative Negative - 2000(110) ++++ mg/dL [facility] Interpretation and review of laboratory results Abnormal [facility] Ketones, UA Positive Negative - 160(16) ++++ mg/dL [facility] Comment on above: trace Leukocytes, UA Negative Negative - 500+++ Dilcia/mcL [facility] Nitrite, UA Negative Negative - Positive [facility] pH, UA 6.5 5 - 9 [facility] Protein, UA Trace Negative - 2000(20) ++++ mg/dL [facility] Spec Grav, UA 1.025 1 - 1.03 [facility] Urobilinogen, UA 2.0 0.2 - 12 mg/dL [facility] US OB BPP W NON-STRESS on 11-20-2024 [place] [address] Ultrasound Report Signed Patient: FARTUN HALL MR#: [id number] : 1985 Acct:[id number] Age/Sex: 39 / F ADM Date: 11/20/24 Loc: US Attending Dr: Fermín Hurtado D.O. Ordering Physician: Fermín Hurtado D.O. Date of Service: 11/20/24 Procedure(s): US OB BPP w non-stress Accession Number(s): [id number] cc: Everett Oliveros M.D.; Fermín Hurtado D.O. [place] [address] Patient Name: FARTUN HALL MRN: [facility]:[id number] date: 1985 Sex: F Assigned Patient Location: [facility] Current Patient Location: Accession/Order Number: [id number] Exam Date: 11/20/2024 15:25 Report Date: 11/20/2024 15:26 At the request of: FERMÍN HURTADO DO Procedure: US OB BPP w non-stress Biophysical profile. Reason for exam: Advanced maternal age. History of bariatric surgery. COMPARISON: 11/13/2024 TECHNIQUE: Transabdominal imaging of the gravid uterus was obtained. FINDINGS: Behavior Therapist reports a BPP of 8 out of 8. CYNTHIA is normal at 13.2cm. heart rate 156bpm. US/US OB BPP w non-stress IMPRESSION: BPP 8 out of 8. Impression dictated by: Corey Fregoso Jr., D.O.11/20/2024 3:26 PM Dictation Location: [place] [address] Electronically authenticated by: [id number] Y Date: 11/20/2024 15:26 Dictated By: Corey Fregoso M.D. Signed By: 11/20/24 1528 DD/ 152 TD/TT: Marketing Reporting Analyst: [facility] Marylou Clay MD - 11/20/2024 [place] [address] Ultrasound Report Signed Patient: FARTUN HALL MR#: [id number] : 1985 Acct:[id number] Age/Sex: 39 / F ADM Date: 11/20/24 Loc: US Attending Dr: Fermín Hurtado D.O. Ordering Physician: Fermín Hurtado D.O. Date of Service: 11/20/24 Procedure(s): US OB BPP w non-stress Accession Number(s): [id number] cc: Everett Oliveros M.D.; Fermín Hurtado D.O. The [place] [address] Patient Name: FARTUN HALL MRN: [facility]:[id number] date: 1985 Sex: F Assigned Patient Location: [facility] Current Patient Location: Accession/Order Number: [id number] Exam Date: 11/20/2024 15:25 Report Date: 11/20/2024 15:26 At the request of: FERMÍN HURTADO DO Procedure: US OB BPP w non-stress Biophysical profile. Reason for exam: Advanced maternal age. History of bariatric surgery. COMPARISON: 11/13/2024 TECHNIQUE: Transabdominal imaging of the gravid uterus was obtained. FINDINGS: Behavior Therapist reports a BPP of 8 out of 8. CYNTHIA is normal at 13.2cm. heart rate 156bpm. US/US OB BPP w non-stress IMPRESSION: BPP 8 out of 8. Impression dictated by: Corey Fregoso Jr., DJames11/20/2024 3:26 PM Dictation Location: [place] [address] Electronically authenticated by: [id number] Y Date: 11/20/2024 15:26 Dictated By: Corey Fregoso M.D. Signed By: 11/20/24 1528 DD/ 25 TD/TT: Marketing Reporting Analyst: [facility] Radiology Study observation (narrative) [facility] US OB BPP W NON-STRESS Ordered By: Radiologist Radiology on 11-20-2024 [facility] Work Phone: Urinalysis macro (dipstick) panel (U)on 11-12-2024 Bilirubin, UA Positive Negative - 4(70) +++ mg/dL [facility] Comment on above: small Blood, UA Negative Negative - 50 Nnamdi/mcL [facility] Clarity, UA Clear [facility] Color, UA Yellow [facility] Glucose, UA Negative Negative - 2000(110) ++++ mg/dL [facility] Interpretation and review of laboratory results Abnormal [facility] Ketones, UA Positive Negative - 160(16) ++++ mg/dL [facility] Comment on above: 15mg/dL Leukocytes, UA Negative Negative - 500+++ Dilcia/mcL [facility] Nitrite, UA Negative Negative - Positive [facility] pH, UA 6 5 - 9 [facility] Protein, UA Positive Negative - 1999(20) ++++ mg/dL [facility] Comment on above: 30mg/dL Spec Grav, UA 1.025 1 - 1.03 [facility] Urobilinogen, UA 1.0 0.2 - 12 mg/dL [facility] Urinalysis macro (dipstick) panel (U)on 10-29-2024 Bilirubin, UA Negative Negative - 4(70) +++ mg/dL [facility] Blood, UA Negative Negative - 50 Nnamdi/mcL [facility] Clarity, UA Clear [facility] Color, UA Yellow [facility] Glucose, UA Negative Negative - 1999(110) ++++ mg/dL [facility] Interpretation and review of laboratory results Abnormal [facility] Ketones, UA Negative Negative - 160(16) ++++ mg/dL [facility] Leukocytes, UA Negative Negative - 500+++ Dilcia/mcL [facility] Nitrite, UA Negative Negative - Positive [facility] pH, UA 7 5 - 9 [facility] Protein, UA Trace Negative - 1999(20) ++++ mg/dL [facility] Spec Grav, UA 1.025 1 - 1.03 [facility] Urobilinogen, UA 4.0 0.2 - 12 mg/dL [facility] ALL CBC WITH AUTO DIFFon BASOPHILS ABSOLUTE AUTO 0.1 [facility] Basophils/100 WBC (Bld) 0.6 % 0.2 - 2.0 % [facility] Eosinophils/100 WBC (Bld) 3.2 % 0.9 - 7.0 % [facility] Erythrocyte distribution width (RBC) [Ratio] 13.1 % 11.0 - 15.0 % [facility] Hematocrit (Bld) [Volume fraction] 34.1 % Low 36.0 - 48.0 % [facility] Hemoglobin (Bld) [Mass/Vol] 10.9 g/dL Low 12.0 - 16.0 g/dL [facility] IMMATURE GRANULOCYTES ABS AUTO 0.03 [facility] Immature granulocytes/100 WBC (Bld) 0.3 % 0.0 - 0.5 % [facility] Interpretation and review of laboratory results Abnormal [facility] LYMPHOCYTES ABSOLUTE AUTO 2.9 [facility] Lymphocytes/100 WBC (Bld) 27.6 % 20.5 - 60.0 % [facility] MCH (RBC) [Entitic mass] 26.5 pg Low 26.7 - 34.0 pg [facility] MCHC (RBC) [Mass/Vol] 32 g/dL 29.9 - 35.2 g/dL [facility] MCV (RBC) [Entitic vol] 82.8 fL 81.0 - 99.0 fL [facility] MONOCYTES ABSOLUTE AUTO 0.7 [facility] Monocytes/100 WBC (Bld) 6.3 % 1.7 - 12.0 % [facility] NEUTROPHILS ABSOLUTE AUTO 6.5 [facility] Neutrophils/100 WBC (Bld) 62 % 43.0 - 75.0 % [facility] Platelet mean volume (Bld) [Entitic vol] 11.6 fL 9.5 - 13.5 fL [facility] EO # 0.3 [facility] PLT 348 [facility] RBC 4.12 Low [facility] TB WBC 10.4 [facility] Urinalysis macro (dipstick) panel (U)on 10-03-2024 Bilirubin, UA Negative Negative - 4(70) +++ mg/dL [facility] Blood, UA Negative Negative - 50 Nnamdi/mcL [facility] Clarity, UA Clear [facility] Color, UA Yellow [facility] Glucose, UA Negative Negative - 1999(110) ++++ mg/dL [facility] Interpretation and review of laboratory results Abnormal [facility] Ketones, UA Negative Negative - 160(16) ++++ mg/dL [facility] Leukocytes, UA Negative Negative - 500+++ Dilcia/mcL [facility] Nitrite, UA Negative Negative - Positive [facility] pH, UA 6.5 5 - 9 [facility] Protein, UA Trace Negative - 1999(20) ++++ mg/dL [facility] Spec Grav, UA 1.025 1 - 1.03 [facility] Urobilinogen, UA 1.0 0.2 - 12 mg/dL [facility] Urinalysis macro (dipstick) panel (U)on 09-04-2024 Bilirubin, UA Negative Negative - 4(70) +++ mg/dL [facility] Blood, UA Negative Negative - 50 Nnamdi/mcL [facility] Clarity, UA Clear [facility] Color, UA Yellow [facility] Glucose, UA Negative Negative - 1999(110) ++++ mg/dL [facility] Interpretation and review of laboratory results Normal [facility] Ketones, UA Negative Negative - 160(16) ++++ mg/dL [facility] Leukocytes, UA Negative Negative - 500+++ Dilcia/mcL [facility] Nitrite, UA Negative Negative - Positive [facility] pH, UA 5.5 5 - 9 [facility] Protein, UA Negative Negative - 1999(20) ++++ mg/dL [facility] Spec Grav, UA 1.02 1 - 1.03 [facility] Urobilinogen, UA 1.0 0.2 - 12 mg/dL [facility] AFP, SERUM, OPEN SPINA BIFID Aon 08-11-2024 AFP MOM 1.01 . [facility] AFP VALUE 39.6 ng/mL . [facility] COMMENT: Comment . [facility] Comment on above: Hazel Dixon , Ph.D., [facility] Director References: Available Upon Request. Multiples Of Median Cutoffs For AFP Elevations Krishna 2.5 Black 2.8 IDD 2.0 Twins 4.5 Abbreviation Definitions IDD - Insulin Dep Diabetes OSBR - Open Spina Bifida Risk For further inquiries contact [employer] [facility] at [phone]. This test was developed and its performance characteristics determined by [employer] It has not been cleared or approved by the Food and Drug Administration. Performed at: [facility] [address] [id number] Estimator Lumber: [facility], Phone: [phone] GEST. AGE ON COLLECTION DATE 17.7 . weeks [facility] GESTAT. AGE BASED ON Ultrasound . [facility] Comment on above: 16.6 on 07/31/2024 Recalculations are not recommended when gestational dating by LMP and ultrasound are within 10 days. INSULIN DEP DIABETES No . [facility] INTERPRETATION Comment . [facility] Comment on above: Interpretation: Scre en [...] Customer Services to discuss available options. The [employer] recommends amniocentesis be offered to women age 35 and older. [age] [facility] MULTIPLE GESTATION No . [facility] OSBR RISK [address] [place] [address] . [facility] RACE . [facility] RESULTS Report . [facility] TEST RESULTS: Negative . [facility] WEIGHT 161 . lbs [facility] N N ULTRASOUND [id number] 4 16 N 1 Y 161 N N N N N White/ [facility] IGP,APTIMA HPV,AGE GDLNon AGE GDLN ACOG TESTING Note . [facility] Comment on above: TESTS RESULT FLAG UN ITS REF RANGE LAB Clinician Provided Cytology Information Source.............Cervix Other.............. No. of containers..01 ThinPrep Vial Age Algo ACOG Aniya... 30-65 01 FLAG LEGEND: L-Low Normal,H-High Normal,LL-Alert Low,HH-Alert High <-Panic Low,>-Panic High,A-Abnormal,AA-Critical Abnormal Performed at: 01 =G [address] [place] [address] Dipti Hurtado MD, HPV APTIMA Negative Negative [facility] Comment on above: This nucleic acid am plification test detects fourteen high- risk HPV types (16,18,31,33,35,39,45,51,52,56,58,59,66,68) without differentiation. Performed at: = - [address] [id number] Estimator Lumber: Dipti Hurtado MD, Phone: [phone] Performed at: [address] [id number] Estimator Lumber: Dipti Hurtado MD, Phone: [phone] IGP, APTIMA HPV, RFX 16/18,45 Note . [facility] Comment on above: TESTS RESULT FLAG UN ITS REF RANGE LAB DIAGNOSIS: 02 NEGATIVE FOR INTRAEPITHELIAL LESION OR MALIGNANCY. Specimen adequacy: 02 Satisfactory for evaluation. Endocervical and/or squamous metaplastic cells (endocervical component) are present. Performed by: 02 Adria Kincaid, Rotary Drier ([facility]) . 02 Note: Note 02 The Pap [...] <-Panic Low,>-Panic High,A-Abnormal,AA-Critical Abnormal Performed at: [address] [address] Dipti Hurtado MD, SPATULA-ALONE CERVIX [facility] RECURRENT VAGINITIS (HTRX)on 08-03-2024 ATOPOBIUM VAGINAE 0 [facility] Healthcare ATOPOBIUM VAGINAE Not detected [facility] BVAB 2,3 (BACTERIAL VAGINOSIS ASSOCIATED BACTERIA 2, 3); MOBILUNCUS SPP 27.074 Abnormal [facility] BVAB 2,3 (BACTERIAL VAGINOSIS ASSOCIATED BACTERIA 2, 3); MOBILUNCUS SPP Detected Abnormal [facility] Healthcare LULY ALBICANS, PARAPSILOSIS, TROPICALIS 0 [facility] LULY ALBICANS, PARAPSILOSIS, TROPICALIS Not detected [facility] LULY GLABRATA 0 [facility] LULY GLABRATA Not detected [facility] LULY KRUSEI 0 [facility] LULY KRUSEI Not detected [facility] CHLAMYDIA TRACHOMATIS 0 [facility] S [facility] CHLAMYDIA TRACHOMATIS Not detected N S [facility] GARDNERELLA VAGINALIS 30.955 Abnormal [facility] Healthcare GARDNERELLA VAGINALIS Detected Abnormal [facility] Healthcare Interpretation and review of laboratory results Abnormal [facility] MEGASPHAERA (TYPES 1, 2) 0 [facility] MEGASPHAERA (TYPES 1, 2) Not detected [facility] MYCOPLASMA GENITALIUM 0 [facility] Healthcare MYCOPLASMA GENITALIUM Not detected N S [facility] NEISSERIA GONORRHOEAE 0 [facility] S [facility] NEISSERIA GONORRHOEAE Not detected N [facility] TET B, TET M 16.937 Abnormal [facility] TET B, TET M Detected Abnormal [facility] TRICHOMONAS VAGINALIS 0 [facility] TRICHOMONAS VAGINALIS Not detected N S [facility] Healthcare Urinalysis macro (dipstick) panel (U)on 07-31-2024 Bilirubin, UA Negative Negative - 4(70) +++ mg/dL [facility] Blood, UA Negative Negative - 50 Nnamdi/mcL [facility] Clarity, UA Clear [facility] Color, UA Yellow [facility] Glucose, UA Negative Negative - 2000(110) ++++ mg/dL [facility] Interpretation and review of laboratory results Normal [facility] Ketones, UA Negative Negative - 160(16) ++++ mg/dL [facility] Leukocytes, UA Negative Negative - 500+++ Dilcia/mcL [facility] Nitrite, UA Negative Negative - Positive [facility] pH, UA 6 5 - 9 [facility] Protein, UA Negative Negative - 2000(20) ++++ mg/dL [facility] Spec Grav, UA 1.015 1 - 1.03 [facility] Urobilinogen, UA 1.0 0.2 - 12 mg/dL [facility] ALL CBC WITH AUTO DIFFon BASOPHILS ABSOLUTE AUTO 0.1 [facility] Basophils/100 WBC (Bld) 0.6 % 0.2 - 2.0 % [facility] Eosinophils/100 WBC (Bld) 3.7 % 0.9 - 7.0 % [facility] Erythrocyte distribution width (RBC) [Ratio] 13.1 % 11.0 - 15.0 % [facility] Hematocrit (Bld) [Volume fraction] 36.3 % 36.0 - 48.0 % [facility] Hemoglobin (Bld) [Mass/Vol] 11.7 g/dL Low 12.0 - 16.0 g/dL [facility] IMMATURE GRANULOCYTES ABS AUTO 0.03 [facility] Immature granulocytes/100 WBC (Bld) 0.3 % 0.0 - 0.5 % [facility] Interpretation and review of laboratory results Abnormal [facility] LYMPHOCYTES ABSOLUTE AUTO 3.1 [facility] Lymphocytes/100 WBC (Bld) 31.7 % 20.5 - 60.0 % [facility] MCH (RBC) [Entitic mass] 27.7 pg 26.7 - 34.0 pg [facility] MCHC (RBC) [Mass/Vol] 32.2 g/dL 29.9 - 35.2 g/dL [facility] MCV (RBC) [Entitic vol] 85.8 fL 81.0 - 99.0 fL [facility] MONOCYTES ABSOLUTE AUTO 0.6 [facility] Monocytes/100 WBC (Bld) 6.3 % 1.7 - 12.0 % [facility] NEUTROPHILS ABSOLUTE AUTO 5.6 [facility] Neutrophils/100 WBC (Bld) 57.4 % 43.0 - 75.0 % [facility] Platelet mean volume (Bld) [Entitic vol] 11.9 fL 9.5 - 13.5 fL [facility] EO # 0.4 [facility] PLT 306 [facility] RBC 4.23 [facility] WBC 9.8 [facility] [facility] HCG ( test) Ql (U)o n 07-04-2024 Interpretation and review of laboratory results Abnormal [facility] Preg Test, Ur Positive Negative [facility] Urinalysis macro (dipstick) panel (U)on 07-04-2024 Bilirubin, UA Negative Negative - 4(70) +++ mg/dL [facility] Blood, UA Positive Negative - 50 Nnamdi/mcL [facility] Comment on above: trace-intact Clarity, UA Clear [facility] Color, UA Yellow [facility] Glucose, UA Negative Negative - 2000(110) ++++ mg/dL [facility] Interpretation and review of laboratory results Abnormal [facility] Ketones, UA Negative Negative - 160(16) ++++ mg/dL [facility] Leukocytes, UA Negative Negative - 500+++ Dilcia/mcL [facility] Nitrite, UA Negative Negative - Positive [facility] pH, UA 6 5 - 9 [facility] Protein, UA Negative Negative - 2000(20) ++++ mg/dL [facility] Spec Grav, UA 1.03 1 - 1.03 [facility] Urobilinogen, UA 0.2 0.2 - 12 mg/dL [facility] PREG QUANT HCGon 01-17-2023 HCG QUANT <1 Normal [facility] Comment on above: Performed By: #### P REGQNT #### [facility] [address] [address] [address] Meghan Vital HCG RANGE SEE BELOW Normal [facility] Comment on above: Result Comment: 5-50 0.2-1 WEEK 50-500 1-2 WEEKS 100-5,000 2-3 WEEKS 500-10,000 3-4 WEEKS 1,000-50,000 4-5 WEEKS 10,000-100,000 5-6 WEEKS 15,000-200,000 6-8 WEEKS 10,000-100,000 2-3 MONTHS Performed By: #### P REGQNT #### [facility] [address] [address] [address] Meghan Vital PROGESTERONEon 05-16-2023 Progesterone 8.9 ng/mL Normal [facility] Comment on above: Result Comment: Foll icular phase 0.1 - 0.9 Luteal phase 1.8 - 23.9 Ovulation phase 0.1 - 12.0 First trimester 11.0 - 44.3 Second trimester 25.4 - 83.3 Third trimester 58.7 - 214.0 Postmenopausal 0.0 - 0.1 Performed By: #### H CGSUB #### [facility] [address] [place] [address] Dr. Meghan Vital PAP ACOG PANEL 2: 30 to 65on 11-30-2022 . . Normal [facility] Comment on above: Result Comment: Perf ormed at: WB Performed By: #### [id number] #### [facility] [address] [place] [address] Dr. Meghan Vital Age Gdln ACOG Testing - [facility] Comment on above: Performed By: #### [id number] #### [facility] [address] [place] [address] Dr. Meghan Vital DIAGNOSIS: Comment Normal [facility] Comment on above: Result Comment: NEGA TIVE FOR INTRAEPITHELIAL LESION OR MALIGNANCY. Performed at: WB Performed By: #### [id number] #### [facility] [address] [place] [address] Dr. Meghan Vital HPV Aptima Positive Abnormal Negative [facility] Comment on above: Result Comment: This nucleic acid amplification test detects fourteen high-risk HPV types (16,18,31,33,35,39,45,51,52,56,58,59,66,68) without differentiation. Performed at: =G Performed By: #### [id number] #### [facility] [address] [place] [address] Dr. Meghan Vital HPV Genotype 16 Negative Normal Negative [facility] Comment on above: Performed By: #### [id number] #### [facility] [address] [place] [address] Dr. Meghan Vital HPV Genotype 18,45 Negative Normal Negative [facility] Comment on above: Performed By: #### [id number] #### [facility] [address] [place] [address] Dr. Meghan Vital HPV Genotype Reflex Comment Normal [facility] Comment on above: Result Comment: Aiyana iqbal, see HPV Genotype results. Performed at: WB Performed By: #### [id number] #### [facility] [address] [place] [address] Dr. Meghan Vital Methodology: Comment Normal [facility] Comment on above: Result Comment: This liquid based ThinPrep(R) pap test was screened with the use of an image guided system. Performed at: WB Performed By: #### [id number] #### [facility] [address] [place] [address] Dr. Meghan Vital Note: Comment Normal [facility] [...] Performed at: WB Performed By: #### [id number] #### [facility] [address] [place] [address] Dr. Meghan Vital Performed by: Comment Normal [facility] Comment on above: Result Comment: Rahul Kincaid, Rotary Drier (ASCP) Performed at: WB Performed By: #### [id number] #### [facility] [address] [place] [address] Dr. Meghan Vital Specimen adequacy: Comment Normal [facility] Comment on above: Result Comment: Sati sfactory for evaluation. Endocervical and/or squamous metaplastic cells (endocervical component) are present. Performed at: WB Performed By: #### [id number] #### [facility] [address] [place] [address] Dr. Meghan Vital ANTI-MULLERIAN HORMONEon Anti-Mullerian Hormone (AMH) 3.03 ng/mL [facility] Comment on above: Result Comment: For assays employing antibodies, the possibility exists for interference by heterophile antibodies in the samples.1 1.Bailey Dickson Interferences in Immunoassays - still a threat. Clin. Chem. 2000; 46: 4901-8533. This test was developed and its performance characteristics determined by [employer]. It has not been cleared or approved by the Food and Drug Administration. Reference Range: Females 36 - 40y: 0.42 - 8.34 Median 1.69 AMH concentrations of >= 1.06 ng/mL is correlated with a better response to ovarian stimulation, produced more retrievable oocytes and higher odds of live according to Holland et al. Fertility and Sterility. 2010: 94:6046-9493. The current AMH test method correlates with [...] tumor. Performed By: #### H CGSUB #### [facility] [address] [place] [address] Dr. Meghan Vital CBC AUTO DIFFon 11-21-2022 BASO # 0.1 103/ul Normal 0.0-0.1 [facility] Comment on above: Performed By: #### H CGSUB #### [facility] [address] [place] [address] Dr. Meghan Vital Basophils/100 WBC (Bld) 0.8 % Normal 0.2-2.0 [facility] Comment on above: Performed By: #### H CGSUB #### [facility] [address] [place] [address] Dr. Meghan Vital EO # 0.2 103/ul Normal 0.0-0.7 [facility] Comment on above: Performed By: #### H CGSUB #### [facility] [address] [place] [address] Dr. Meghan Vital Eosinophils/100 WBC (Bld) 2.3 % Normal 0.9-7.0 [facility] Comment on above: Performed By: #### H CGSUB #### [facility] [address] [place] [address] Dr. Meghan Vital Erythrocyte distribution width (RBC) [Ratio] 13.3 % Normal 11.0-15.0 [facility] Comment on above: Performed By: #### H CGSUB #### [facility] [address] [place] [address] Dr. Meghan Vital Hematocrit (Bld) [Volume fraction] 42.4 % Normal 36.0-48.0 [facility] Comment on above: Performed By: #### H CGSUB #### [facility] [address] [place] [address] Dr. Meghan Vital Hemoglobin (Bld) [Mass/Vol] 13.6 g/dL Normal 12.0-16.0 [facility] Comment on above: Performed By: #### H CGSUB #### [facility] [address] [place] [address] Dr. Meghan Vital IG # 0.01 10e3/ul Normal 0.00-0.03 [facility] Comment on above: Performed By: #### H CGSUB #### [facility] [address] [place] [address] Dr. Meghan Vital IG % 0.1 % Normal 0.0-0.5 [facility] Comment on above: Performed By: #### H CGSUB #### [facility] [address] [place] [address] Dr. Meghan Vital LYMPH # 3.9 103/ul Critically high 1.2-3.8 [facility] Comment on above: Performed By: #### H CGSUB #### [facility] [address] [place] [address] Dr. Meghan Vital Lymphocytes/100 WBC (Bld) 42.7 % Normal 20.5-60.0 [facility] Comment on above: Performed By: #### H CGSUB #### [facility] [address] [place] [address] Dr. Meghan Vital MANUAL DIFF REQ NO Normal [facility] Comment on above: Performed By: #### H CGSUB #### [facility] [address] [address] [address] Meghan Vital MCH (RBC) [Entitic mass] 27.4 pg Normal 26.7-34.0 [facility] Comment on above: Performed By: #### H CGSUB #### [facility] [address] [place] [address] Dr. Meghan Vital MCHC (RBC) [Mass/Vol] 32.1 g/dL Normal 29.9-35.2 [facility] Comment on above: Performed By: #### H CGSUB #### [facility] [address] [place] [address] Dr. Meghan Vital MCV (RBC) [Entitic vol] 85.3 fL Normal 81.0-99.0 [facility] Comment on above: Performed By: #### H CGSUB #### [facility] [address] [place] [address] Dr. Meghan Vital MONO # 0.6 103/ul Normal 0.3-0.8 [facility] Comment on above: Performed By: #### H CGSUB #### [facility] [address] [place] [address] Dr. Meghan Vital Monocytes/100 WBC (Bld) 6.1 % Normal 1.7-12.0 [facility] Comment on above: Performed By: #### H CGSUB #### [facility] [address] [place] [address] Dr. Meghan Vital NEUT # 4.3 103/ul Normal 1.4-6.5 [facility] Comment on above: Performed By: #### H CGSUB #### [facility] [address] [place] [address] Dr. Meghan Vital Neutrophils/100 WBC (Bld) 48.0 % Normal 43.0-75.0 [facility] Comment on above: Performed By: #### H CGSUB #### [facility] [address] [place] [address] Dr. Meghan Vital Platelet mean volume (Bld) [Entitic vol] 11.5 fL Normal 9.5-13.5 [facility] Comment on above: Performed By: #### H CGSUB #### [facility] [address] [place] [address] Dr. Meghan Vital PLT 251 103/ul Normal 150-450 [facility] Comment on above: Performed By: #### H CGSUB #### [facility] [address] [place] [address] Dr. Meghan Vital RBC 4.97 106/ul Normal 4.20-5.40 [facility] Comment on above: Performed By: #### H CGSUB #### [facility] [address] [place] [address] Dr. Meghan Vital WBC 9.0 103/ul Normal 4.0-11.0 [facility] Comment on above: Performed By: #### H CGSUB #### [facility] [address] [place] [address] Dr. Meghan Vital FREE T4on 11-21-2022 Free T4 [Mass/Vol] 1.03 ng/dL Normal 0.76-1.46 [facility] Comment on above: Performed By: #### F T4 #### [facility] [address] [place] [address] Dr. Meghan Vital GLYCOHEMOGLOBIN A1Con 2022 ADA RECOMMENDATION SEE BELOW Normal [facility] Comment on above: Result Comment: ADA RECOMMENDED LIMIT 4.0 - 6.0 ADA THERAPEUTIC TARGET < 7.0 ACTION SUGGESTED > 7.0 Performed By: #### H CGSUB #### [facility] [address] [place] [address] Dr. Meghan Vital Glucose [Mass/Vol] 97 mg/dL Normal [facility] Comment on above: Performed By: #### H CGSUB #### [facility] [address] [place] [address] Dr. Meghan Vital HbA1c (Bld) [Mass fraction] 5.0 % Normal 4.5-6.2 [facility] Comment on above: Performed By: #### H CGSUB #### [facility] [address] [place] [address] Dr. Meghan Vital TSHon 11-21-2022 TSH 1.636 uIU/mL Normal 0.358-3.74 0 [facility] Comment on above: Performed By: #### H CGSUB #### [facility] [address] [place] [address] Dr. Meghan Vital PROGESTERONEon 10-12-2022 Progesterone 6.8 ng/mL Normal [facility] Comment on above: Result Comment: Foll icular phase 0.1 - 0.9 Luteal phase 1.8 - 23.9 Ovulation phase 0.1 - 12.0 First trimester 11.0 - 44.3 Second trimester 25.4 - 83.3 Third trimester 58.7 - 214.0 Postmenopausal 0.0 - 0.1 Performed By: #### H CGSUB #### [facility] [address] [place] [address] Dr. Meghan Vital CBC AUTO DIFFon 09-23-2022 BASO # 0.1 103/ul Normal 0.0-0.1 [facility] Comment on above: Performed By: #### C BC #### [facility] [address] [place] [address] Dr. Meghan Vital Basophils/100 WBC (Bld) 1.2 % Normal 0.2-2.0 [facility] Comment on above: Performed By: #### C BC #### [facility] [address] [place] [address] Dr. Meghan Vital EO # 0.2 103/ul Normal 0.0-0.7 [facility] Comment on above: Performed By: #### C BC #### [facility] [address] [place] [address] Dr. Meghan Vital Eosinophils/100 WBC (Bld) 2.4 % Normal 0.9-7.0 [facility] Comment on above: Performed By: #### C BC #### [facility] [address] [place] [address] Dr. Meghan Vital Erythrocyte distribution width (RBC) [Ratio] 13.1 % Normal 11.0-15.0 [facility] Comment on above: Performed By: #### C BC #### [facility] [address] [place] [address] Dr. Meghan Vital Hematocrit (Bld) [Volume fraction] 38.1 % Normal 36.0-48.0 [facility] Comment on above: Performed By: #### C BC #### [facility] [address] [place] [address] Dr. Meghan Vital Hemoglobin (Bld) [Mass/Vol] 13.4 g/dL Normal 12.0-16.0 [facility] Comment on above: Performed By: #### C BC #### [facility] [address] [place] [address] Dr. Meghan Vital IG # 0.01 10e3/ul Normal 0.00-0.03 [facility] Comment on above: Performed By: #### C BC #### [facility] [address] [place] [address] Dr. Meghan Vital IG % 0.1 % Normal 0.0-0.5 [facility] Comment on above: Performed By: #### C BC #### [facility] [address] [place] [address] Dr. Meghan Vital LYMPH # 3.4 103/ul Normal 1.2-3.8 [facility] Comment on above: Performed By: #### C BC #### [facility] [address] [place] [address] Dr. Meghan Vital Lymphocytes/100 WBC (Bld) 45.2 % Normal 20.5-60.0 [facility] Comment on above: Performed By: #### C BC #### [facility] [address] [place] [address] Dr. Meghan Vital MANUAL DIFF REQ NO Normal [facility] Comment on above: Performed By: #### C BC #### [facility] [address] [place] [address] Dr. Meghan Vital MCH (RBC) [Entitic mass] 27.8 pg Normal 26.7-34.0 [facility] Comment on above: Performed By: #### C BC #### [facility] [address] [place] [address] Dr. Meghan Vital MCHC (RBC) [Mass/Vol] 35.2 g/dL Normal 29.9-35.2 [facility] Comment on above: Performed By: #### C BC #### [facility] [address] [place] [address] Dr. Meghan Vital MCV (RBC) [Entitic vol] 79.0 fL Critically low 81.0-99.0 [facility] Comment on above: Performed By: #### C BC #### [facility] [address] [place] [address] Dr. Meghan Vital MONO # 0.4 103/ul Normal 0.3-0.8 [facility] Comment on above: Performed By: #### C BC #### [facility] [address] [place] [address] Dr. Meghan Vital Monocytes/100 WBC (Bld) 5.3 % Normal 1.7-12.0 [facility] Comment on above: Performed By: #### C BC #### [facility] [address] [place] [address] Dr. Meghan Vital NEUT # 3.4 103/ul Normal 1.4-6.5 [facility] Comment on above: Performed By: #### C BC #### [facility] [address] [place] [address] Dr. Meghan Vital Neutrophils/100 WBC (Bld) 45.8 % Normal 43.0-75.0 [facility] Comment on above: Performed By: #### C BC #### [facility] [address] [place] [address] Dr. Meghan Vital Platelet mean volume (Bld) [Entitic vol] 11.4 fL Normal 9.5-13.5 [facility] Comment on above: Performed By: #### C BC #### [facility] [address] [place] [address] Dr. Meghan Vital PLT 280 103/ul Normal 150-450 [facility] Comment on above: Performed By: #### C BC #### [facility] [address] [place] [address] Dr. Meghan Vital RBC 4.82 106/ul Normal 4.20-5.40 [facility] Comment on above: Performed By: #### C BC #### [facility] [address] [place] [address] Dr. Meghan Vital WBC 7.5 103/ul Normal 4.0-11.0 [facility] Comment on above: Performed By: #### C BC #### [facility] [address] [place] [address] Dr. Meghan Vital FREE T4on 09-23-2022 Free T4 [Mass/Vol] 1.17 ng/dL Normal 0.76-1.46 [facility] Comment on above: Performed By: #### H CGSUB #### [facility] [address] [place] [address] Dr. Meghan Vital GLYCOHEMOGLOBIN A1Con 2022 ADA RECOMMENDATION SEE BELOW Normal [facility] Comment on above: Result Comment: ADA RECOMMENDED LIMIT 4.0 - 6.0 ADA THERAPEUTIC TARGET < 7.0 ACTION SUGGESTED > 7.0 Performed By: #### A 1C #### [facility] [address] [place] [address] Dr. Meghan Vital Glucose [Mass/Vol] 100 mg/dL Normal [facility] Comment on above: Performed By: #### A 1C #### [facility] [address] [place] [address] Dr. Meghan Vital HbA1c (Bld) [Mass fraction] 5.1 % Normal 4.5-6.2 [facility] Comment on above: Performed By: #### A 1C #### [facility] [address] [place] [address] Dr. Meghan Vital TSHon 09-23-2022 TSH 1.235 uIU/mL Normal 0.358-3.74 0 [facility] Comment on above: Performed By: #### T SH #### [facility] [address] [place] [address] Dr. Meghan Vital PREG QUANT HCGon 07-12-2022 HCG QUANT 1 mIU/mL Normal [facility] Comment on above: Performed By: #### P REGQNT #### [facility] [address] [address] [address] Meghan Vital HCG RANGE SEE BELOW Normal [facility] Comment on above: Result Comment: 5-50 0.2-1 WEEK 50-500 1-2 WEEKS 100-5,000 2-3 WEEKS 500-10,000 3-4 WEEKS 1,000-50,000 4-5 WEEKS 10,000-100,000 5-6 WEEKS 15,000-200,000 6-8 WEEKS 10,000-100,000 2-3 MONTHS Performed By: #### P REGQNT #### [facility] [address] [address] [address] Meghan Vital XR HYSTEROSALPINGOGRAMon XR HYSTEROSALPINGOGRAM [...] IMPRESSION: 1. Normal hysterosalpingogram. Electronically authenticated by: AYDIRA BAKER Date: 2022-07-12 12:12 Normal [facility] PROGESTERONEon 06-30-2022 Progesterone 20.9 ng/mL Normal [facility] Comment on above: Result Comment: Foll icular phase 0.1 - 0.9 Luteal phase 1.8 - 23.9 Ovulation phase 0.1 - 12.0 First trimester 11.0 - 44.3 Second trimester 25.4 - 83.3 Third trimester 58.7 - 214.0 Postmenopausal 0.0 - 0.1 Performed By: #### P ROGES #### [facility] [address] [place] [address] Dr. Meghan Vital HCG-BETA SUBUNIT QUANTon hCG,Beta Subunit,Qnt,Serum <1 Normal [facility] Comment on above: Result Comment: Fema le (Non-) 0 - 5 (Postmenopausal) 0 - 8 . Female () Weeks of Gestation 3 6 - 71 4 10 - 750 5 217 - 7138 6 158 - 97093 7 7027 -066665 8 55833 -751562 9 46090 -387538 10 76957 -565232 12 22508 -315845 14 13065 - 96093 15 19171 - 65383 16 9040 - 62899 17 8175 - 07940 18 8099 - 35283 Jeremy ECLIA methodology Performed By: #### H CGSUB #### [facility] [address] [place] [address] Dr. Meghan Vital HCG-BETA SUBUNIT QUANTon hCG,Beta Subunit,Qnt,Serum <1 Normal [facility] Comment on above: Result Comment: Fema le (Non-) 0 - 5 (Postmenopausal) 0 - 8 . Female () Weeks of Gestation 3 6 - 71 4 10 - 750 5 217 - 7138 6 158 - 35688 7 3697 -280866 8 68365 -005662 9 72503 -765756 10 63172 -564433 12 13392 -422307 14 67174 - 38562 15 40437 - 00742 16 9040 - 21014 17 8175 - 05819 18 8099 - 44355 Jeremy ECLIA methodology Performed By: #### H CGSUB #### [facility] [address] [place] [address] Dr. Meghan Vital PROGESTERONEon 02-26-2022 Progesterone <0.1 Normal [facility] Comment on above: Result Comment: Foll icular phase 0.1 - 0.9 Luteal phase 1.8 - 23.9 Ovulation phase 0.1 - 12.0 First trimester 11.0 - 44.3 Second trimester 25.4 - 83.3 Third trimester 58.7 - 214.0 Postmenopausal 0.0 - 0.1 Performed By: #### P PHIL #### [facility] [address] [place] [address] Dr. Meghan Vital US PELVIS AND TRANSVAGon [...] YANIRA MICHAEL Date: 2022-02-24 16:57 Normal [facility] Ambulatory Clinical Summaryo n 12-22-2020 Ambulatory Clinical Summary {[id number] Normal [facility] Family Medicine Office/Clini c Noteon [...] documented 3008F Office Visit Level 2 Est 76739 2. Tobacco use (Z72.0: Tobacco use) We [...] smoker 1034F Office Visit Level 2 Est 45151 3. Hordeolum externum right lower eyelid (H00.012: Hordeolum externum right lower eyelid) Will treat with bacitracin ointment. May use warm compresses 3-4 x day. FU with PCP if not gradually improving over next 7 days, sooner if significantly spreading erythema, edema, warmth, fever. Patient verbalized understanding of tx plan Ordered: Office Visit Level 2 Est 09984 Orders: erythromycin ophthalmic, 0.5 in, OPTH, QID [...] Family History Family history is negative Normal [facility] Comment on above: Result Comment: Elec [...] methods. Where to find more information ? [employer]: www.lung.org ? [employer]: www.cancer.org Summary ? Smoking cigarettes [...] Reviewed: 08/18/2017 Elsevier Patient Education ? [address] [employer]. [facility] Provider Letteron 12-22-2020 Provider Letter (Inserted Image. Mary ble to display) December 22, 2020 FARTUN RODRÍGUEZ [address] [place] [id number] FARTUN RODRÍGUEZ 1985 To Whom It May Concern, Please excuse above patient from work. Date of Illness:12/22/2020 May Return to Work On:12/23/2020 Comments: _ Patient was seen in office today, she may return at the date listed above Sincerely, [facility] [address] [place] [address], [place] [address] 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 Cigarettes, Yes, 11/17/[address] [facility] Comment on above: Result Comment: Elec [...] to help relieve symptoms, such as: ? Tctv-hbs-knrictu cold medicines. ? Cough suppressants. Coughing is [...] other clear broths. General instructions ? Take kgfa-rrb-juwxeno and prescription medicines only as told by [...] and water are not available, use hand splitting machine feeder. ? Avoid touching your mouth, face, eyes, [...] common infecti (more content not included)... Normal [facility] Provider Letteron 11-17-2020 Provider Letter (Inserted Image. Mary ble to display) November 17, 2020 FARTUN RODRÍGUEZ [address] [place] [phone] FARTUN RODRÍGUEZ 1985 To Whom It May Concern, Please excuse above patient from work. Date of Illness: From: 11/17/2020 To: 11/18/2020 May Return to Work On:11/19/2020 Comments: Patient above was seen at [facility] on 11/17/2020. Sincerely, [facility] [address] [place] [address] [facility] Provider Letteron 09-22-2020 Provider Letter (Inserted Image. Mary ble to display) September 22, 2020 FARTUN RODRÍGUEZ [address] [place] [phone] FARTUN RODRÍGUEZ 1985 To Whom It May Concern, Please excuse above patient from work. Date of Illness: From: 09/22/2020 May Return to Work On:09/23/2020 Comments: The above patient may return back to work on the above date. Sincerely, [facility] [address] [place] [id number] [facility] SURGICAL PATH REPORTon 07-31 SURGICAL PATH REPORT [facility] Department of Pathology [address] [place] [phone] Name: FARTUN RODRÍGUEZ : 1985 Financial [id number] Number: Gender: Female Location: [facility] Admit 34 years Attending FERMÍN HURTADO Age: Provider: Ordering FERMÍN HURTADO Provider: Consulting: Surgical Pathology Report ACCESSION: COLLECTED DATE/TIME: RECEIVED DATE/TIME: PATHOLOGIST: [id number] 07/30/2020 13:19 EST 07/30/2020 13:19 SHADE DILL MD Final Diagnosis Report for [facility] [place] [employer]: - CHORION[employer] VILLI. [...] cm. There are no grossly identifiable parts. Laboratory Specialist sections are submitted in three cassettes. MP/ekaterina 07/30/2020 Tissue pathology report for: [facility], [address] [place] [id number]; Print Date/ 07/31/2020 15:05 EST Number: Time: [facility] Department of Pathology [address] [place] [phone] Name: FARTUN RODRÍGUEZ : 1985 [facility] [id number] Number: Gender: Female Location: [facility] Admit 34 years Attending FERMÍN HURTADO Age: Provider: Ordering FERMÍN HURTADO Provider: Consulting: Surgical Pathology Report ACCESSION: COLLECTED DATE/TIME: RECEIVED DATE/TIME: PATHOLOGIST: [id number] 07/30/2020 13:19 EST 07/30/2020 13:19 SHADE DILL MD Gross Description PATHOLOGY SERVICES PROVIDED BY [employer] (CLIA #[id number]) in cooperation with [facility] at [address] [place] [address] (IA #[id number]) Codes CPT CODE: 79261 Print Date07/31/2020 15:05 EST Number: Time: Normal [facility] Comment on above: Performed By: #### [id number] #### [facility] [address] [place] [address] Phlebotomy Supervisor: Shade Muller MD Consenton 05-29-2020 Consent [id number]:127 Normal [facility] Registrationon 05-29-2020 Registration [id number]:[address] [facility] Influenza A,Bon 11-08-2018 Influenza A, Rapid Ag Negative Normal Negative [facility] Comment on above: Performed By: #### 5 [id number] #### [facility] [address] [place] [address] Influenza B, Rapid Ag Negative Normal Negative [facility] Comment on above: Performed By: #### 5 [id number] #### [facility] [address] [place] [address] Urinalysis with Reflex Cultu reon 11-08-2018 Appearance Nom (U) Clear Normal Clear [facility] Comment on above: Performed By: #### U ARFX #### [facility] [address] [place] [address] Ascorbic Acid Negative Normal Negative [facility] Comment on above: Performed By: #### U ARFX #### [facility] [address] [place] [address] Automated Urine Microscopy Not indicated Normal [facility] Comment on above: Performed By: #### U ARFX #### [facility] [address] [place] [address] Bilirubin mass conc Negative Normal Negative [facility] Comment on above: Performed By: #### U ARFX #### [facility] [address] [place] [address] Blood Negative Normal Negative [facility] Comment on above: Performed By: #### U ARFX #### [facility] [address] [place] [address] Color Nom (U) Yellow Normal [facility] Comment on above: Performed By: #### U ARFX #### [facility] [address] [place] [address] Glucose mass conc 50 mg/dL Abnormal Negative [facility] Comment on above: Performed By: #### U ARFX #### [facility] [address] [place] [address] Ketones Ql (U) Negative Normal Negative [facility] Comment on above: Performed By: #### U ARFX #### [facility] [address] [place] [address] Leukocytes Esterase Negative Normal Negative [facility] Comment on above: Performed By: #### U ARFX #### [facility] [address] [place] [address] Nitrite Ql (U) Negative Normal Negative [facility] Comment on above: Performed By: #### U ARFX #### [facility] [address] [place] [address] pH (Bld) 5.0 Normal 5.0-9.0 [facility] Comment on above: Performed By: #### U ARFX #### [facility] [address] [place] [address] Protein mass conc (U) Negative Normal Negative [facility] Comment on above: Performed By: #### U ARFX #### [facility] [address] [place] [address] Specific gravity Relative Density (U) 1.026 Normal 1.003-1.03 5 [facility] Comment on above: Performed By: #### U ARFX #### [facility] [address] [place] [address] Urobilinogen Qn (U) <2.0 Normal Negative [facility] Comment on above: Result Comment: [...] By: #### U ARFX #### [facility] [address] [place] [address] STREP GROUP A AG QUALon 08-29 STREP GROUP A AG QUAL STREP GROUP A AG Q UAL GROUP A STREP NEGATIVE FOR STREPTOCOCCUS GROUP A ANTIGEN THROAT CULTURE: REFERRED TO [facility] FOR CULTURE CONFIRMATION CULTURE RESULT: CULTURE NEGATIVE FOR BETA STREP GROUP A Normal [facility] Comment on above: Performed By: #### M STREPA ####[facility] [id number] [place] [address] ED Provider Reporton 018 ED Provider Report [facility] [place], [place] [address]Patient Name: FARTUN RODRÍGUEZ : [birth year]Acct #: [id number] Unit #: [id number] ER Arrival Date: 09/21/17 ER Physician: Yoshi [...] illicit drug usePast Social HistorySmoking Status:FORMER SMOKERTobacco UseCIGARETTESPacks/[id number] :LESS THAN 1 YEAR AGOReview of SystemsReview [...] Resp B/P B/P Pulse O2 O2 Flow GdH4Snxy Ox Delivery Rate09/21 1712 36.5 83 18 [...] to follow-up with PCP.Disposition DecisionDischargeDispositio n Date09/21/17Decision [id number] obiologyDate/Time Procedure - StatusSource Afgolm16/25 1745 Group A Streptococcus Screen (BETHANY) - [...] Time Vital Sign Value Performing Clinician Facility 11-26-2024 14:56-0400 Body mass index (BMI) [Ratio] 30.9 kg/m2 [email or web address] DO Work Phone: [facility] 11-26-2024 14:56-0400 Body weight 81.65 kg [employer] Work Phone: [facility] 11-26-2024 14:56-0400 Diastolic blood pressure 62 mm[Hg] [employer] Work Phone: [facility] 11-26-2024 14:56-0400 Systolic blood pressure 112 mm[Hg] [employer] Work Phone: [facility] 11-12-2024 10:00-0400 Body mass index (BMI) [Ratio] 30.18 kg/m2 Fermín Bryant DO Work Phone: [facility] 11-12-2024 10:00-0400 Body weight 79.74 kg Fermín Bryant DO Work Phone: [facility] 11-12-2024 10:00-0400 Diastolic blood pressure 72 mm[Hg] Fermín Bryant DO Work Phone: [facility] 11-12-2024 10:00-0400 Systolic blood pressure 100 mm[Hg] Fermín Bryant DO Work Phone: [facility] 10-29-2024 10:05-0500 Body mass index (BMI) [Ratio] 31.21 kg/m2 Fermín Bryant DO Work Phone: [facility] 10-29-2024 10:05-0500 Body weight 82.46 kg Fermín Bryant DO Work Phone: [facility] 10-29-2024 10:05-0500 Diastolic blood pressure 64 mm[Hg] Fermín Bryant DO Work Phone: [facility] 10-29-2024 10:05-0500 Systolic blood pressure 100 mm[Hg] Fermín Bryant DO Work Phone: [facility] 10-03-2024 11:32-0500 Body mass index (BMI) [Ratio] 30.04 kg/m2 Fermín Bryant DO Work Phone: [facility] 10-03-2024 11:32-0500 Body weight 79.38 kg Fermín Bryant DO Work Phone: [facility] 10-03-2024 11:32-0500 Diastolic blood pressure 68 mm[Hg] Fermín Bryant DO Work Phone: [facility] 10-03-2024 11:32-0500 Systolic blood pressure 120 mm[Hg] Fermín Bryant DO Work Phone: [facility] 09-06-2024 10:13-0500 Body weight 77.11 kg Ermelinda Nichols MD Work Phone: [facility] 09-04-2024 15:21-0500 Body mass index (BMI) [Ratio] 28.8 kg/m2 Fermín Bryant DO Work Phone: [facility] 09-04-2024 15:21-0500 Body weight 76.11 kg Fermín Bryant DO Work Phone: [facility] 09-04-2024 15:21-0500 Diastolic blood pressure 64 mm[Hg] Fermín Bryant DO Work Phone: [facility] 09-04-2024 15:21-0500 Systolic blood pressure 100 mm[Hg] Fermín Bryant DO Work Phone: [facility] 07-31-2024 14:58-0500 Body mass index (BMI) [Ratio] 27.7 kg/m2 Fermín Bryant DO Work Phone: [facility] 07-31-2024 14:58-0500 Body weight 73.21 kg Fermín Bryant DO Work Phone: [facility] 07-31-2024 14:58-0500 Diastolic blood pressure 62 mm[Hg] Fermín Bryant DO Work Phone: [facility] 07-31-2024 14:58-0500 Systolic blood pressure 100 mm[Hg] Fermín Bryant DO Work Phone: [facility] 07-04-2024 15:55-0500 Body mass index (BMI) [Ratio] 27.48 kg/m2 [facility] 07-04-2024 15:55-0500 Body weight 72.63 kg [facility] Nurse [facility] 07-04-2024 15:55-0500 Diastolic blood pressure 60 mm[Hg] [facility] 07-04-2024 15:55-0500 Systolic blood pressure 110 mm[Hg] Nom Nurse [facility] 05-31-2023 09:00-0400 Body height 162.56 cm Everett Torres [employer] Other 05-31-2023 09:00-0400 Body mass index (BMI) [Ratio] 24.54 kg/m2 Everett Oliveros Other [employer] Other 05-31-2023 09:00-0400 Body weight 64.86 kg Everett Oliveros Other [facility] Other 05-31-2023 09:00-0400 Diastolic blood pressure 65 mm[Hg] Everett Oliveros Other [facility] Other 05-31-2023 09:00-0400 Systolic blood pressure 98 mm[Hg] Everett Oliveros Other [facility] Other 11-08-2022 16:15-0400 Body height 162.56 cm Everett Oliveros Other [employer] Other 11-08-2022 16:15-0400 Body mass index (BMI) [Ratio] 25.4 kg/m2 Everett Oliveros Other [facility] Other 11-08-2022 16:15-0400 Body temperature 97.4 [degF] Everett Oliveros Other [facility] Other 11-08-2022 16:15-0400 Body weight 67.13 kg Everett Oliveros Other [facility] Other 11-08-2022 16:15-0400 Diastolic blood pressure 74 mm[Hg] Everett Oliveros Other [facility] Other 11-08-2022 16:15-0400 SaO2% (BldA) [Mass fraction] 99 % Everett Oliveros Other [facility] Other 11-08-2022 16:15-0400 Systolic blood pressure 120 mm[Hg] Everett Arlin Other [facility] Other 06-12-2022 12:15-0400 Body height 162.56 cm Yolis James Other [employer] Other 06-12-2022 12:15-0400 Body mass index (BMI) [Ratio] 25.74 kg/m2 Yolis James Other [employer] Other 06-12-2022 12:15-0400 Body temperature 98.1 [degF] Yolis James Other [employer] Other 06-12-2022 12:15-0400 Body weight 68.04 kg Yolis James Other [employer] Other 06-12-2022 12:15-0400 Diastolic blood pressure 61 mm[Hg] Yolis James Other [employer] Other 06-12-2022 12:15-0400 Respiratory rate 18 /min Yolis James Other [employer] Other 06-12-2022 12:15-0400 SaO2% (BldA) [Mass fraction] 100 % Yolis James Other [employer] Other 06-12-2022 12:15-0400 Systolic blood pressure 108 mm[Hg] Yolis James Other [employer] Other Encounters Encounter Date Encounter Type Care Provider Facility Start: 11-27-2024 End: 11-27-2024 Clinisync Result Encounter Fermín Hurtado DO Work Phone: [facility] Unsolicited Start: 11-27-2024 End: 11-27-2024 Clinisync Result Encounter Fermín Bryant DO Work Phone: [facility] Unsolicited Start: 11-26-2024 End: 11-26-2024 ambulatory FERMÍN BRYANT Not Available Start: 11-26-2024 End: 11-26-2024 flow sheet Fermín Bryant DO Work Phone: [facility] Comment on above: 33 weeks gestation o f ; Third trimester Start: 11-26-2024 End: 11-26-2024 Bamboo flowsheet Fermín Bryant DO Work Phone: [facility] Start: 11-26-2024 End: 11-26-2024 Bamboo flowsheet Fermín Bryant DO Work Phone: [facility] Start: 11-20-2024 End: 11-20-2024 Clinisync Result Encounter Fermín Bryant DO Work Phone: [facility] Unsolicited Start: 11-20-2024 End: 11-20-2024 Clinisync Result Encounter Fermín Bryant DO Work Phone: [facility] Unsolicited Start: 11-19-2024 End: 11-19-2024 [facility] Start: 11-12-2024 End: 11-12-2024 flow sheet Fremín Bryant DO Work Phone: [facility] [...] BRYANT Not Available Start: 10-28-2024 End: 10-28-2024 Sole Nichols MD Work Phone: [facility] Comment on above: History of bariatric surgery Start: 10-09-2024 End: 10-09-2024 Clinisync Result Encounter Fermín Bryant DO Work Phone: [facility] Unsolicited Start: 10-09-2024 End: 10-09-2024 Clinisync Result Encounter Fermín Bryant DO Work Phone: [facility] Unsolicited Start: 10-08-2024 End: 10-08-2024 [facility] Start: 10-03-2024 End: 10-03-2024 Bamboo flowsheet [...] Jazmine Black RN [facility]- Medic [facility]e at [facility] Comment on above: resulting from assisted reproductive technology, second trimester (Primary Dx); Low lying placenta nos or without hemorrhage, second trimester; Advanced maternal age in multigravida, second trimester Start: 09-06-2024 End: 09-06-2024 Office consultation new/estab patient 60 min Ermelinda Nichols MD Work Phone: [facility] Comment on above: resulting from assisted reproductive technology, second trimester (Primary Dx); 21 weeks gestation of ; History of bariatric surgery; Advanced maternal age, 1st , second trimester; Low lying placenta nos or without hemorrhage, second trimester Start: 09-06-2024 End: 09-06-2024 ambulatory [facility] Start: 09-04-2024 End: 09-04-2024 flow sheet [...] Nichols MD Work Phone: [facility] Start: 08-08-2024 End: 08-11-2024 Clinisync Result Encounter Fermín Bryant DO Work Phone: [facility] Unsolicited Start: 08-08-2024 End: 08-11-2024 Clinisync Result Encounter Fermín Bryant DO Work Phone: [facility] Unsolicited Start: 07-31-2024 End: 07-31-2024 Patient encounter procedure Fermín Bryant DO Work Phone: [facility] Start: 07-31-2024 End: 07-31-2024 Periodic preventive [...] 05-31-2023 End: 05-31-2023 ambulatory Everett Oliveros Other [employer] Other Start: 05-31-2023 Office outpatient vi sit 15 minutes Everett Oliveros [facility] Start: 01-17-2023 End: 01-25-[address] FERMÍN HURTADO . Facility:[facility] Start: 01-09-2023 End: 01-10-[address] FERMÍN HURTADO . Facility:[facility] Start: 11-26-2022 Letter encounter Luisa Ge APRN-[employer]PER[employer]ORY [employer]GU[employer] [facility] Start: 11-21-2022 End: 11-21-[address] FERMÍN HURTADO . Facility:[facility] Start: 11-21-2022 End: 11-22-[address] FERMÍN HURTADO . Facility:[facility] Start: 11-08-2022 End: 11-08-2022 ambulatory Everett Oliveros Other [employer] Other Start: 11-08-2022 Office outpatient vi sit 15 minutes Everett Oliveros [facility] Start: 10-11-2022 End: 10-12-[address] FERMÍN HURTADO . Facility:[facility] Start: 09-23-2022 End: 09-24-[address] FERMÍN HURTADO . Facility:[facility] Start: 09-04-2022 Letter encounter Luisa Ge APRN-[employer]ORY [employer]GUARD Work Phone: [facility] Start: 07-12-2022 End: 07-12-[address] FERMÍN HURTADO . Facility:[facility] Start: 06-29-2022 End: 06-30-[address] FERMÍN HURTADO . Facility:[facility] Start: 06-12-2022 End: 06-12-2022 ambulatory Yolis James Other [employer] Other Start: 06-12-2022 Office outpatient ne w 20 minutes Yolis James [facility] Start: 05-05-[address] FERMÍN HURTADO . Facili ty:[facility] Start: 04-27-2022 End: 04-28-[address] FERMÍN HURTADO . Facility:[facility] Start: 03-23-2022 End: 03-24-[address] FERMÍN HURTADO . Facility: Start: 02-25-2022 End: 02-26-[address] FERMÍN HURTADO . Facility: Start: 02-24-2022 End: 02-25-2022 ambulatory NONE LISTED REQUEST Facility: Start: 05-11-2020 ambulatory Swathi WALDRON MARÍA [facility] Start: 11-07-2018 End: 11-08-2018 Emergency department patient visit NO FAMILY DOCTOR NO FAMILY DOCTOR Facility:[facility] [employer] Start: 09-21-2017 Emergency department patient visit No Family Physician Facility:[facility] Procedures Date Procedure Procedure Detail Performing Clinician Start: 11-27-2024 US OB BPP W NON-STRESS Fermín Bryant DO Work Phone: Start: 11-26-2024 Urnls dip stick/tabl et rgnt non-auto w/o micrscp Fermín Bryant DO Work Phone: Start: 11-20-2024 OB BPP W NON-STRESS Fermín Bryant DO [...] ion [Identifier] in Cervix by Cyto stain uLisa Ge APRN-[employer]PER[employer]ORY LIFEGUARD Work Phone: Plan of Treatment Date Care Activity Detail Author Start: 2036 Shingles (RZV) Vacci ne (1 of 2) Shingles (RZV) Vaccine (1 of 2) [facility] Start: 07-31-2027 Screening for malign ant neoplasm of cervix Pap Smear [email or web address] Start: 09-09-2025 End: 09-09-2025 US MFM with or without consult US MFM with or without consult Imaging Routine resulting from assisted reproductive technology, second trimester Low lying placenta nos or without hemorrhage, second trimester Advanced maternal age in multigravida, second trimester Expected: 09/09/2025 (Approximate), Expires: 09/09/2025 [employer] Work Phone: Comment on above: Expected: 09/09/2025 (Approximate), Expires: 09/09/2025 Start: 09-06-2025 Tobacco Screening [facility] Start: 12-10-2024 End: 12-10-2024 Patient encounter procedure 12/10/2024 2:40 PM EDT Routine [facility] [address] [place] [phone] Fermín Hurtado, DO [address] [place] [address] [facility] Start: 11-26-2024 End: 11-26-2024 Patient encounter procedure 11/26/2024 9:10 AM EDT Routine [facility] [address] [place] [phone] Fermín Hurtado, DO [address] [place] [address] [facility] Start: 11-19-2024 Subsequent hospital visit by physician 11/19/2024 1:00 PM EDT Hospital Encounter [facility] - Ultrasound [address] [place] [id number] [facility] Start: 11-12-2024 End: 11-12-2025 US [...] [facility] [address] [place] [phone] Fermín Hurtado, DO [address], [place] [id number] [facility] Start: 10-29-2024 End: 10-29-2024 Patient encounter procedure [facility] Comment on above: Arrived Start: 10-08-2024 End: 10-08-2024 Patient encounter procedure 10/08/2024 2:15 PM EST Appointment [facility] - Ultrasound [address] [place] [address] [facility] Start: 10-03-2024 End: 10-03-2025 CBC panel - Blood by Automated count CBC Lab Routine Diabetes mellitus screening Expected: 10/03/2024 (Approximate), Expires: 10/03/2025 [facility] Work Phone: Comment on above: Expected: 10/03/2024 (Approximate), Expires: 10/03/2025 Start: 10-03-2024 End: 10-03-2024 Patient encounter procedure 10/03/2024 11:10 AM EST Routine [facility] [address] [facility] [place] [phone] Fermín Hurtado, DO [address] [place] [address] Arrived [facility] Comment on above: Arrived Start: 10-03-2024 End: 10-03-2024 Patient encounter procedure 10/03/2024 8:50 AM EST Routine [facility] [address] [facility] [phone] Fermín Hurtado, DO [address] [place] [address] [facility] Start: 09-06-2024 End: 09-06-2024 Patient encounter procedure [facility] Start: 09-04-2024 End: 09-04-2024 Patient encounter procedure [facility] Comment on above: Arrived Start: 07-31-2024 End: 07-31-2024 Patient encounter procedure [facility] Comment on above: Arrived Start: 07-31-2024 End: 10-01-2024 Alpha fetoprotein, maternal Alpha fetoprotein, maternal Lab Routine Second trimester Well woman exam with routine gynecological exam Expected: 07/31/2024 (Approximate), Expires: 10/01/2024 [facility] Comment on above: Expected: 07/31/2024 (Approximate), Expires: 10/01/2024 Start: 07-31-2024 End: 07-31-2025 US for US OB ANATOMY SINGLE W US OB CERVICAL LENGTH Imaging Routine Screening, , for anatomic survey Expected: 07/31/2024 (Approximate), Expires: 07/31/2025 [facility] Comment on above: Expected: 07/31/2024 (Approximate), Expires: 07/31/2025 Start: 07-04-2024 End: 07-04-2025 ABO/Rh ABO/Rh Lab Routine Missed menses , unspecified gestational age Expected: 07/04/2024 (Approximate), Expires: 07/04/2025 [facility] Comment on above: Expected: 07/04/2024 (Approximate), Expires: 07/04/2025 Start: 07-04-2024 End: 07-04-2025 Blood type and Indirect antibody screen panel - Blood Type and screen Lab Routine Missed menses , unspecified gestational age Expected: 07/04/2024 (Approximate), Expires: 07/04/2025 [facility] Work Phone: Comment on above: Expected: 07/04/2024 (Approximate), Expires: 07/04/2025 Start: 07-04-2024 End: 07-04-2025 Drugs of abuse panel - Urine by Screen method Rapid drug screen, urine Lab Routine , unspecified gestational age Encounter for supervision of normal first in first trimester Expected: 07/04/2024 (Approximate), Expires: 07/04/2025 [facility] Comment on above: Expected: 07/04/2024 (Approximate), Expires: 07/04/2025 Start: 04-28-2024 Influenza vaccination Influenza Vacc ine [facility] Start: 06-26-2023 Tetanus vaccination Tetanus (T d or Tdap) [facility] Start: 07-08-2022 Screening for malign ant neoplasm of cervix Pap Smear [facility] Start: 05-28-2022 Influenza vaccination Influenza Vacc ine (#1) [facility] Start: 2007 Screening for malign ant neoplasm of cervix Pap Smear [facility] Start: 2005 DTaP,Tdap and Td Vaccines (1 - Tdap) DTaP,Tdap and Td Vaccines (1 - Tdap) [facility] Start: 2004 Adult BMI Screening Adult BMI Screen ing [facility] Start: 1998 Depression Screening Depression Scre ening [facility] Start: 1998 Tobacco Screening Tobacco Screening [facility] Start: 02-23-1987 COVID-19 Vaccine (#1) COVID-19 Vacci ne (#1) [facility] Start: 1986 Screening for malign ant neoplasm of breast Mammography shared decision making (35 through 39 years) [facility] Bacteria identified in Urine by Culture Urine culture Microbiology Routine Missed menses Ordered: 07/04/2024 [facility] Comment on above: Ordered: 07/04/2024 CBC W Auto Different ial panel - Blood CBC and differential Lab Routine Missed menses , unspecified gestational age Ordered: 07/04/2024 [facility] Comment on above: Ordered: 07/04/2024 CHLAMYDIA TRACHOMATI S (GENITO/STI) CHLAMYDIA TRACHOMATIS (GENITO/STI) Lab Routine Exposure to STD Ordered: 07/31/2024 [facility] Comment on above: Ordered: 07/31/2024 Cytology Cervical or vaginal smear or scraping study Pap Smear Pathology and Cytology Routine Well woman exam with routine gynecological exam Ordered: 07/31/2024 [facility] Comment on above: Ordered: 07/31/2024 Hemoglobin A1c/Hemoglobin.total in Blood Hemoglobin A1c Lab Routine Missed menses , unspecified gestational age Ordered: 07/04/2024 [facility] Comment on above: Ordered: 07/04/2024 Hepatitis B virus surface Ag [Presence] in Serum or Plasma by Immunoassay Hepatitis B surface antigen Lab Routine Missed menses , unspecified gestational age Ordered: 07/04/2024 [facility] Comment on above: Ordered: 07/04/2024 Hepatitis C virus Ab [Presence] in Serum or Plasma by Immunoassay Hepatitis C antibody Lab Routine Missed menses , unspecified gestational age Ordered: 07/04/2024 [facility] Comment on above: Ordered: 07/04/2024 HIV-1/HIV-2 antigen/antibody combination immunoassay HIV-1 and HIV-2 antibodies Lab Routine Missed menses , unspecified gestational age Ordered: 07/04/2024 [facility] Comment on above: Ordered: 07/04/2024 Human papilloma viru s DNA [Presence] in Unspecified specimen by Probe with amplification HPV DNA probe, amplified Microbiology Routine Well woman exam with routine gynecological exam Ordered: 07/31/2024 [facility] Comment on above: Ordered: 07/31/2024 Neisseria gonorrhoea e DNA [Presence] in Unspecified specimen by SANJU with probe detection Neisseria gonorrhea DNA probe, direct Lab Routine Exposure to STD Ordered: 07/31/2024 [facility] Comment on above: Ordered: 07/31/2024 Reagin Ab [Presence] in Serum by RPR RPR Lab Routine Missed menses , unspecified gestational age Ordered: 07/04/2024 [facility] Comment on above: Ordered: 07/04/2024 Rubella antibody, IgG Rubella an tibody, IgG Lab Routine Missed menses , unspecified gestational age Ordered: 07/04/2024 [facility] Comment on above: Ordered: 07/04/2024 SURESWAB(R) ADVANCED VAGINITIS PLUS, TMA SURESWAB(R) ADVANCED VAGINITIS PLUS, TMA Pathology and Cytology Routine Vaginal discharge Ordered: 07/31/2024 [facility] Work Phone: Comment on above: Ordered: 07/31/2024 Immunizations Immunization Date Immunization Notes Care Provider Ubaldo araujo 10-23-2013 tuberculin skin test ; purified protein derivative solution, intradermal Luisa Ge APRN-[facility] Work Phone: [facility] 06-26-2013 tetanus toxoid, redu thalia diphtheria toxoid, and acellular pertussis vaccine, adsorbed Luisa Joo ANTIQUE FURNITURE REPAIRER-[facility] Work Phone: [facility] 05-08-2013 human papilloma viru s vaccine, quadrivalent Luisa Joo ANTIQUE FURNITURE REPAIRER-[facility] Work Phone: [facility] 01-10-2013 human papilloma viru s vaccine, quadrivalent Luisa Joo ANTIQUE FURNITURE REPAIRER-[facility] Work Phone: [facility] 11-15-2012 human papilloma viru s vaccine, quadrivalent Luisa Joo ANTIQUE FURNITURE REPAIRER-SUPERVISORY LIFEGUARD Work Phone: [facility] 10-16-2010 tetanus toxoid, redu thalia diphtheria toxoid, and acellular pertussis vaccine, adsorbed Luisa Ge ANTIQUE FURNITURE REPAIRER-SUPERVISORY LIFEGUARD Work Phone: [facility] Payers Date Payer Category Payer [facility] BCBS [id number] 2023 [facility] Managed Care - Other [id number] 2023 [employer] [place] [facility] HUM [id number] 2.16.840.1.397526.19 2013 Medicaid [id number] 1986 Unknown [id number] 2.16.840.1.074124.3.579.2. 355 1986 Unknown [id number] 2.16.840.1.841336.3.579.2. 732 1986 Unknown [id number] 2.16.840.1.098540.3.579.2. 593 1986 Unknown [id number] 2.16.840.1.687381.3.579.2. 593 1986 Unknown [id number] 2.16.840.1.735533.3.579.2. 593 1986 Unknown [id number] 2.16.840.1.020906.3.579.2. 593 1986 Unknown [id number] 2.16.840.1.793878.3.579.2. 593 1986 Unknown [id number] 2.16.840.1.680706.3.579.2. 593 1986 Unknown [id number] 2.16.840.1.316115.3.579.2. 593 1986 Unknown [id number] 2.16.840.1.014294.3.579.2. 593 1986 Unknown [id number] 2.16.840.1.851679.3.579.2. 593 1986 Unknown [id number] 2.16.840.1.024996.3.579.2. 593 1986 Unknown [id number] 2.16.840.1.477271.3.579.2. 593 1986 Unknown [id number] 2.16.840.1.320713.3.579.2. 593 1986 Unknown [id number] 2.16.840.1.376248.3.579.2. 593 1986 Unknown [id number] 2.16.840.1.729890.3.579.2. 1286 1986 Unknown [id number] 2.16.840.1.722876.3.579.2. 1286 1986 Unknown [id number] 2.16.840.1.146076.3.579.2. 1286 1986 Unknown [id number] 2.16.840.1.385953.3.579.2. 1286 1986 Unknown [id number] 2.16.840.1.951659.3.579.2. 1259 1986 Unknown [id number] 2.16.840.1.852327.3.579.2. 9 1986 Unknown [id number] 2.16.840.1.200004.3.579.2. 9 1986 Unknown [id number] 2.16.840.1.024521.3.579.2. 9 1986 Unknown [id number] 2.16.840.1.533941.3.579.2. 9 1986 Unknown [id number] 2.16.840.1.003077.3.579.2. 1258 1986 Unknown [id number] 2.16.840.1.865685.3.579.2. 1259 1958 Medicaid [id number] 1958 Medicaid [id number] 2.16.840.1.401203.19 Social History Date Type Detail Facility Start: 09-06-2024 Sex Assigned At [facility] Start: 10-17-2017 Tobacco smoking status FLIS Ex-smoker [facility] End: 03-28-2017 History of tobacco [...] [facility] Start: 1985 [facility] smoking stat us [facility]IS Tobacco smoking consumption unknown [facility] Start: 04-20-2024 [facility] Start: 06-03-2023 Gender identity Identifies as female gender (finding) [facility] Start: 06-03-2023 Sexual orientation Heterosexual (finding) [facility] Start: 09-06-2024 Tobacco smoking status NHIS Never smoked tobacco [facility] Start: 09-06-2024 Alcoholic beverage intake Ex-drinker (finding) [facility] Within the past 12 months we worried whether our food would run out before we got money to buy more. Never True [facility] Start: 1985 Sex assigned at Not on file [facility] [employer] Start: 08-06-2024 Sex Female (finding) [facility] Goals Date Patient Goal Desired Activity /State Personal health goal Clinical Notes 06-12-2022 to 11-26-2024 Patricia Carter, MEDIA SUPERVISOR - 11/26/2024 2:30 PM EDTPatricia Carter, MEDIA SUPERVISOR - 11/12/2024 10:00 AM EDTSandrian Spitler, MEDIA SUPERVISOR - 10/29/2024 10:10 AM ESTSusan Spitler, [facility] - 10/03/2024 11:10 AM EST Note Date & Type Note Facility 11-26-2024 History of Present illness Narrative Reason for Appointment: Patient ID: Fartun Hall is a 39 y.o. female who presents for No chief complaint on file. Patient presents today for Return OB appointment. 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 Exam conducted with a multimedia teacher present. Vitals: Estimated body mass index is 30.9 kg/m as calculated from the following: Height as of 11/21/22: 5' 4 . Weight as of this encounter: 180 lb. BP: 112/62 No LMP recorded. Patient is . ASSESSMENT & PLAN ICD-10-CM 1. 33 weeks gestation of Z3A.33 POCT urinalysis dipstick manually resulted 2. Third trimester Z34.93 POCT urinalysis dipstick manually resulted Return OB: Patient presents today for a routine obstetrics appointment. Patient is currently 33w2d . Patient states she is doing well but has complaints of being tired due to current . Patient has verbalizes frequent movement. labor precautions was discussed/given and patient was instructed to perform kick counts three times a day. Orders Placed This Encounter Procedures POCT urinalysis dipstick manually resulted Follow Up: Patient is to return to office in 2 week for routine OB appointment. Documented by Patricia Carter LPN on behalf of: Fermín Hurtado DO documented in this encounter [facility] 11-12-2024 History of Present illness Narrative Reason for Appointment: Patient ID: Fartun Hall is a 39 y.o. female who presents for Routine Visit Patient presents today for Return OB appointment. 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 Exam conducted with a multimedia teacher present. Vitals: Estimated body mass index [...] Fermín Hurtado DO documented in this encounter [facility] 10-29-2024 History of Present illness Narrative Reason for Appointment: Patient ID: Fartun Hall is a 39 y.o. female who presents for Routine Visit Patient presents today for Return OB appointment. MEDICATIONS Current Outpatient Medications Medication Instructions aspirin 81 mg, Daily Continuous Glucose Foreman Or Supervisor And Operator ([employer]ex[employer] G6 timber hand) device Use as instructed Continuous Glucose Sensor [...] nursing note reviewed. Exam conducted with a multimedia teacher present. Vitals: Estimated body mass index [...] noted bilaterally. Patient is currently still seeing [facility] for growth scan/NST/BPP. Patient to return to clinic in 2 weeks and then she will be able to decide if she would like to have NST/BPPs done locally or continue with [facility]. Patient voiced that she is unabl eto put her work shoes on due to swelling and will be taking off work midway through this month. Documented by Trupti Gentile LPN on behalf of: Fermín Hurtado DO documented in this encounter [facility] 10-03-2024 History of Present illness Narrative [...] nursing note reviewed. Exam conducted with a multimedia teacher present. Vitals: Estimated body mass index [...] 01/12/25. Patient has follow up US with [facility] to clear heart. Patient will notify office after next [facility] appointment if she would like to have scans done locally. Patient given order for CBC and cancelled 1 hour gtt due to patients history of bariatric surgery. Patient will check sugars for 2 weeks and bring results to office for review. [employer] Emmy' will be called into patients pharmacy and if needed in the future refills will be able to be sent. Patient will call office with any concerns. Patient aware that PA may need to be done for glucose monitor and once patient has obtained supplies she will reach out to [employer] [facility] to have device placed on arm, patient was given blood sugar logs to bring to next appointment for review once device is placed. Documented by Trupti Gentile LPN on behalf of: Fermín Hurtado DO documented in this encounter [facility] 09-06-2024 History of Present illness Narrative [...] female Have you been seen here at [facility] in a previous ? No Recent ER visits or hospitalizations? No Bring blood sugar log or meter with you today? (Please bring them with you for every visit at [facility]) n/a Flu vaccine (Jun-October)? No Any concerns [...] and 22q11 Carrier screening: Baby Girl: Eryn Eloina have reviewed the pertinent available patient records including but not limited to notes, labs and images. PAST OBSTETRICAL HISTORY: OB History Para Term AB Living 3 2 SAB IAB Ectopic Multiple Live Births 2 # Outcome Date GA Lbr Chris/2nd Weight Sex Type Anes PTL Lv 3 Current 2 SAB 2021 5w0d 1 SAB 2020 8w0d MEDICAL HISTORY: Past Medical History: [...] Allergies CURRENT MEDICATIONS: Current Outpatient Medications: ferrous [id number]-szylair C-folic acid (FOLTRIN) 110-0.5 mg capsule, Take 1 capsule by mouth every morning before breakfast., Disp: , Rfl: [id number]-rrnxo acid ( 19) 29 mg iron- 1 [...] those pregnancies occurring naturally (1.3% vs 0.7%). [facility] suggest that echocardiogram be offered to [...] aspirin vs 10.3% no aspirin, p=0.45) (PMBID: [id number]). Given well-established benefits baby aspirin for the prevention of preeclampsia, I recommend initiating baby aspirin even in the setting of history of Alberto-en-Y surgery. PPI prophylaxis is additionally recommended by bariatric surgeons, 20 mg daily ordered today in addition to aspirin 81 mg daily. Micronutrient Dosing Recommendations: Calcium: recommend 1000-1200mg daily; if deficient, recommend 1800-31067 mg PO daily in divided doses Vitamin [...] ultrasound, attempt completion in 4-6 weeks at [facility] Repeat growth ultrasound along with transvaginal ultrasound to re-evaluate placental location in 11 weeks at 32 weeks gestation, through [facility] Repeat growth ultrasound at 36-37 weeks gestation [...] patient is in complete care of her real estate inspector. Patient does have ultrasound scheduled with us. Thank you for allowing me to participate in the care of Fartun Hall. If there any questions please do not hesitate to contact us. Ermelinda Nichols MD Maternal- Medicine [facility] [address] [place] [address] [facility], the CDC, and other organizations representing maternal and public health professionals recommend that , , and lactating people and those considering receive the COVID-19 vaccination. Vaccination is the best method to reduce maternal and complications of SARS-CoV-2 infection. This document was created with [employer] technology. Though I make every effort to review the dictation as it is transcribed, on occasion the spoken word can be misinterpreted by the technology leading to inappropriate words, phrases, or sentences. This note is addressed to the requesting provider as a consultation for clinical guidance. Specific medical abbreviations are occasionally used and those are generally approved by the [place]?Board of?Obstetrics and?Gynecology?as well as?Ruth s abbreviations. The above plan of care was based solely on the diagnoses for which a consultation was requested. ?More frequent testing may be indicated based on her other medical/obstetrical conditions. The management of other or medical conditions is beyond the scope of requested consultation and will continue to be followed by the primary real estate inspector or primary care provider. Note to patient: [...] of the practitioner. documented in this encounter [facility] 09-04-2024 History of Present illness Narrative Reason [...] nursing note reviewed. Exam conducted with a multimedia teacher present. Vitals: Estimated body mass index [...] Delivery: 01/12/25. Pt having anatomy scan at [facility] on Monday. Pt has complaints of dry itchy ears. Drops called into pharmacy. Pt to return in 4 weeks for scheduled OB appt. Documented by Patricia Carter LPN on behalf of: Fermín Hurtado DO documented in this encounter [facility] 07-31-2024 History of Present illness Narrative [...] nursing note reviewed. Exam conducted with a multimedia teacher present. Vitals: Estimated body mass index [...] Fermín Hurtado DO documented in this encounter [facility] 07-04-2024 History of Present illness Narrative [...] or undercooked meat, and stay away from [facility]. Patient has also been advised to not [...] Shannon Farr LPN documented in this encounter [facility] 05-31-2023 Evaluation note Encounter Date Diagnosis Assessment Notes May, Dandruff in adult (ICD-10 - L21.0) Trial of medicated shampoo. Call if no improvement. 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 Will add drop with steroid component. Discussed proper hearing protection - possibly ear muff style. Also discussed ENT referral if needed. [facility] 10-16-2022 Evaluation note* Encounter Date Diagnosis [...] water inside ear after shower may use dining chair seat cushion trimmer on lowest cool setting to blow dry. Follow up with PCP or UC if no improvement in the next 2-3 days. Immediate eval for severe ear pain, severe headache, neck pain/stiffness, pain, erythema, or swelling behind the ear, fever, N/V, hearing loss, fever, or any other new or concerning symptoms. Patient verbalizes understanding and is agreeable to treatment plan [facility] Evaluation note* Diagnosis Missed menses , unspecified gestational age Encounter for supervision of normal first in first trimester documented in this encounter [facility] HealthcareEvaluation note* Diagnosis 16 weeks gestation of Second trimester state, incidental Well woman exam with routine gynecological exam Routine gynecological examination Screening, , for anatomic survey Encounter for anatomic survey Exposure to STD Vaginal discharge Leukorrhea, not specified as infective Ear infection Unspecified otitis media documented in this encounter [facility] HealthcareEvaluation note* Diagnosis Second trimester state, incidental 21 weeks gestation of documented in this encounter [facility]* Diagnosis resulting from assisted reproductive technology, second trimester- Primary 21 weeks gestation of History of bariatric surgery Bariatric surgery status Advanced maternal age, 1st , second trimester Low lying placenta nos or without hemorrhage, second trimester [facility] Diagnosis resulting from assisted reproductive technology, second trimester- Primary Low lying placenta nos or without hemorrhage, second trimester Advanced maternal age in multigravida, second trimester [facility] Diagnosis Diabetes mellitus screening Screening for diabetes mellitus 25 weeks gestation of Second trimester state, incidental History of bariatric surgery Bariatric surgery status resulting from in vitro fertilization, antepartum documented in this encounter [facility] HealthcareEvaluation note* Diagnosis History of bariatric surgery Bariatric surgery status documented [facility]* Diagnosis Third trimester state, incidental 29 weeks gestation of documented in this encounter [facility]* Diagnosis Third trimester state, incidental 31 weeks gestation of Upper respiratory tract infection, unspecified type History of bariatric surgery Bariatric surgery status resulting from in vitro fertilization, antepartum Multigravida of advanced maternal age in third trimester [facility] Diagnosis 33 weeks gestation of Third trimester state, incidental documented [facility] general [...] REPIAR 2017 Hospitalization History SEE SURGICAL HX [facility] InstructionsNot on filedocumented in this encounter [facility] filedocumented in this [facility] filedocumented in this encounter [facility] [employer] Summary Purpose Family History No Family [...] section and content) DATE CREATED AUTHOR 02/19/2018 [facility] DATE CREATED AUTHOR AUTHOR'S ORGANIZ ATION 11/14/2018 [facility] DATE CREATED AUTHOR AUTHOR'S ORGANIZ ATION 09/17/2020 [facility] DATE CREATED AUTHOR AUTHOR'S ORGANIZ ATION 12/23/2020 [facility] DATE CREATED AUTHOR AUTHOR'S ORGANIZ ATION 10/21/2021 [facility] DATE CREATED AUTHOR AUTHOR'S ORGANIZ ATION 02/03/2023 [facility] DATE CREATED AUTHOR AUTHOR'S ORGANIZ ATION 09/11/2024 [facility] DATE CREATED AUTHOR AUTHOR'S ORGANIZ ATION 11/20/2024 [facility] DATE CREATED AUTHOR AUTHOR'S ORGANIZ ATION 11/29/2024 [facility] dical Specialists EPIC REASON FOR VISIT (unrecogniz ed section and content) Reason Comments Amenorrhea Reason Comments Routine Visit Reason Comments ama Fertility Preservation Reason Comments Med Change Request Care Teams (unrecognized sec tion and content) Planning Official Relationship Specialty Start Date End Date Luisa Ge APRN-CNP [address] [place] [phone] ASSISTANT SOFTBALL COACH Pulmonary Medicine 06/02/20 Jamie Hardin MD [address] [place] [address] Physician General Surgery 06/02/20 Page Faulkner M.Ed., R.D., L.D. [address] [id number] Dietitian Nutrition 06/02/20 Rita Catherine MD [address] [place] [address] Physician Obstetrics/Gynecology 06/02/20 Rishabh Hi APRN-SUPERVISORY LIFEGUARD [address] [place] [address] ASSISTANT SOFTBALL COACH Anesthesiology 06/02/20 Planning Official Relationship Specialty Start Date End Date Luisa Ge APRN-CNP [address] [place] [address] ASSISTANT SOFTBALL COACH Pulmonary Medicine 06/02/20 Jamie Hardin MD [address] [place] [id number] Physician General Surgery 06/02/20 Page Faulkner M.Ed., R.D., L.D. [address] [address] Dietitian Nutrition 06/02/20 Rita Catherine MD [address] [place] [address] Physician Obstetrics/Gynecology 06/02/20 Rishabh Hi, ANTIQUE FURNITURE REPAIRER-SUPERVISORY LIFEGUARD [address] [place] [address] ASSISTANT SOFTBALL COACH Anesthesiology 06/02/20 Planning Official Relationship Specialty Start Date End Date Everett Oliveros MD [address] [facility] [place] [phone] PCP - General Family Medicine 03/29/23 Planning Official Relationship Specialty Start Date End Date Everett Oliveros MD [address] [facility] [place] [address] PCP - General Family Medicine 03/29/23 Planning Official Relationship Specialty Start Date End Date Everett Oliveros MD [address] [facility] [place] [address] PCP - General Family Medicine 03/29/23 Planning Official Relationship Specialty Start Date End Date Everett Oliveros MD [address] [facility] [place] [address] PCP - General Family Medicine 03/29/23 Planning Official Relationship Specialty Start Date End Date Everett Oliveros MD [address] [facility] [place] [address] PCP - General Family Medicine 03/29/23 Planning Official Relationship Specialty Start Date End Date Everett Oliveros MD [address] [facility] [place] [address] PCP - General Family Medicine 03/29/23 Planning Official Relationship Specialty Start Date End Date Everett Oliveros MD [address] [facility] [place] [address] PCP - General Family Medicine 03/29/23 Planning Official Relationship Specialty Start Date End Date Everett Oliveros MD [address] [facility] [place] [address] PCP - General Family Medicine 03/29/23 Planning Official Relationship Specialty Start Date End Date Everett Oliveros MD [address] [facility] [place] [address] PCP - General Family Medicine 03/29/23 Planning Official Relationship Specialty Start Date End Date Everett Oliveros MD [address] [facility] [place] [address] PCP - General Family Medicine 03/29/23 Planning Official Relationship Specialty Start Date End Date Everett Oliveros MD [address] [facility] [place] [address] PCP - General Family Medicine 03/29/23 Planning Official Relationship Specialty Start Date End Date Everett Oliveros MD [address] [facility] [place] [address] PCP - General Family Medicine 03/29/23 Planning Official Relationship Specialty Start Date End Date Everett Oliveros MD [address] [facility] [place] [address] PCP - General Family Medicine 03/29/23 Planning Official Relationship Specialty Start Date End Date Everett Oliveros MD [address] [place] [phone] PCP - General Family Medicine 03/29/23 FOR [...] BE BASED ON THE PRIMARY CLINICAL RECORDS. [employer] provides no warranty or guarantee of the accuracy or completeness of information in this document.
[2024-11-30 11:23] VITALS: BP 99/72; PULSE 67
== END 2024-11-30 11:50 | disposition home or self-care (01) ==
LOC: FBCO 10:58 → FBC 11:02
PROVIDERS: PCP Family Medicine; Visit Provider Obstetrics & Gynecology
DX: O26.893 Other specified pregnancy related conditions, third trimester (principal); Z3A.34 34 weeks gestation of pregnancy
CPT/HCPCS: 59025

== ENCOUNTER 2024-12-04 10:59 | Outpatient (OUT) | payer BC, SELFPAY ==
--- NOTE | 2024-12-04 11:04 | US_ITS ---
[address] [address] Patient Name: FARTUN HALL MRN: [id number] date: 1985 Sex: F Assigned Patient Location: [facility] Current Patient Location: [facility] Accession/Order Number: [id number] Exam Date: 12/04/2024 11:35 Report Date: 12/04/2024 11:36 At the request of: ANA PAULA JOHN DO Procedure: US OB BPP w non-stress Biophysical profile. Reason for exam: Advanced maternal age. History of bariatric surgery. COMPARISON: 11/27/2024 TECHNIQUE: Transabdominal imaging of the gravid uterus was obtained. FINDINGS: Hat Block Bench Hand reports a BPP of 8 out of 8. CYNTHIA is normal at 14cm. heart rate 153bpm. US/US OB BPP w non-stress IMPRESSION: BPP 8 out of 8. Impression dictated by: Corey Fregoso Jr., D.O.12/04/2024 11:36 AM Dictation Location: [place] [address] Electronically authenticated by: [id number] Y Date: 12/04/2024 11:36
[2024-12-04 11:34] VITALS: BP 123/69; PULSE 59
== END 2024-12-04 12:00 | disposition home or self-care (01) ==
LOC: US 10:59 → FBC 11:03
PROVIDERS: PCP Family Medicine; Visit Provider Obstetrics & Gynecology
DX: O99.843 Bariatric surgery status complicating pregnancy, third trimester (principal); O09.813 Supervision of pregnancy resulting from assisted reproductive technology, third trimester; O09.523 Supervision of elderly multigravida, third trimester; Z3A.34 34 weeks gestation of pregnancy
CPT/HCPCS: 76818

== ENCOUNTER 2024-12-07 10:53 | Outpatient (OUT) | payer BC, SELFPAY ==
--- OUTSIDE RECORDS SUMMARY | 2024-12-07 10:56 | XMS_ITS | CCD ---
Author Organization [facility] Care Team Providers Care Strategic Analyst Name Role Phone No Family Physician Unavailable [...] Unavailable Sussy PACKER, Rishabh NAlexia Unavailable [phone] Everett Oliveros Unavailable Joo PACKER, Luisa Unavailable [phone] Lashawn MESSER, Jamie Unavailable [phone] Kaushik West, R.Keyana., L.D., Page Unavailable Florin MESSER, Rita Unavailable Sussy PACKER, Rishabh N. Unavailable BRYANT ., DR GOSS Attending Unavailable BRYANT ., DR GOSS Admitting Unavailable ARLIN, DR EVERETT Corey Primary Care Unavailable BRYANT ., DR GOSS Consulting Unavailable REQUEST, DR GARAY LISTED Primary Care Unavaila ble BRYANT ., DR GOSS Attending Unavailable [place], DR YANIRA Steele Consulting Unavailable BRYANT ., [...] DR GOSS Consulting Unavailable Arlin MESSER, Everett [facility] Provider Unavailable Primary Care [...] adverse reactions to drug (disorder) 9 [facility] Medications Current Medications Medication Drug [...] by mouth once daily before breakfast ferrous batmowuh-o95-jyzeyh c C-folic acid (FOLTRIN) 110-0.5 mg capsule Take 1 capsule by mouth every morning before breakfast. Active aspirin 81 mg delayed release oral tablet (16 sources) Platelet Aggregation Inhibitor, Nonsteroidal Anti-inflammatory Drug [...] 1 Package 11 06/18/2019 Active Continuous Glucose Fire Systems Inspector (Dexcom G6 receiver bulk system) device (11 sources) Start: 10-09-2024 Continuous Glucose Fire Systems Inspector (Dexcom G6 receiver bulk system) device Indications: Diabetes mellitus screening , History of bariatric surgery Use as instructed 1 each 10/09/2024 Active Continuous Glucose Fire Systems Inspector (FreeStyle Emmy 3 [place]) device (3 sources) Start: 10-03-2024 End: 10-17-2024 Continuous Glucose Fire Systems Inspector (FreeStyle Emmy 3 [place]) device Indications: Diabetes mellitus screening , History [...] Continuous Glucose Transmitter (Dexcom G6 transmitter) misc (10 sources) Start: 10-11-2024 Continuous Glucose Transmitter (Dexcom [...] / neomycin 3.5 mg/ml / polymyxin b 58243 unt/ml otic solution (1 source) Aminoglycoside Antibacterial, [...] omeprazole 20 mg delayed release oral capsule (19 sources) Proton Pump Inhibitor Start: 10-28-2024 take [...] Take 1 each by mouth Daily Active az062-ipru-cvkgh acid ( 19) 29 mg iron- 1 mg tablet,chewable (3 sources) pi899-vhtp-qzyys acid ( 19) 29 mg iron- 1 [...] unspecified; Translations: [Diarrhea, unspecified] Onset: 11-07-2018 Unclassified (18 sources) OB Reminders Onset: 08-08-2024 08-08-2024 Unclassified [...] Facility US OB BPP W NON-STRESS on 12-04-2024 [place] [address] Ultrasound Report Signed Patient: FARTUN HALL MR#: [id number] : 1985 Acct:[id number] Age/Sex: 39 / F ADM Date: 12/04/24 Loc: [facility] 252-[address]: Fermín Hurtado D.O. Ordering Physician: Fermín Hurtado D.O. Date of Service: 12/04/24 Procedure(s): US OB BPP w non-stress Accession Number(s): [id number] cc: Everett Oliveros M.D.; Fermín Hurtado D.O. The [address] [address] Patient Name: FARTUN HALL MRN: [facility]:[id number] date: 1985 Sex: F Assigned Patient Location: [facility] Current Patient Location: [facility] Accession/Order Number: [id number] Exam Date: 12/04/2024 11:35 Report Date: 12/04/2024 11:36 At the request of: FERMÍN HURTADO DO Procedure: US OB BPP w non-stress Biophysical profile. Reason for exam: Advanced maternal age. History of bariatric surgery. COMPARISON: 11/27/2024 TECHNIQUE: Transabdominal imaging of the gravid uterus was obtained. FINDINGS: Supervisor Instrument Maintenance reports a BPP of 8 out of 8. CYNTHIA is normal at 14cm. heart rate 153bpm. US/US OB BPP w non-stress IMPRESSION: BPP 8 out of 8. Impression dictated by: Corey Fregoso Jr., D.O.12/04/2024 11:36 AM Dictation Location: [place] [address] Electronically authenticated by: [id number] Y Date: 12/04/2024 11:36 Dictated By: Corey Fregoso M.D. Signed By: 12/04/24 1139 DD/ 1136 TD/TT: [place] [place] [place]: [facility] Radiology Radiologeloina hsultz MD - 12/04/2024 The [place] [address] Ultrasound Report Signed Patient: FARTUN HALL MR#: [id number] : 1985 Acct:[id number] Age/Sex: 39 / F ADM Date: 12/04/24 Loc: [facility] 252-[address]: Fermín Hurtado D.O. Ordering Physician: Fermín Hurtado D.O. Date of Service: 12/04/24 Procedure(s): US OB BPP w non-stress Accession Number(s): [id number] cc: Everett Oliveros M.D.; Fermín Hurtado D.O. [address] [address] Patient Name: FARTUN HALL MRN: [id number] date: 1985 Sex: F Assigned Patient Location: [facility] Current Patient Location: [facility] Accession/Order Number: [id number] Exam Date: 12/04/2024 11:35 Report Date: 12/04/2024 11:36 At the request of: FERMÍN HURTADO DO Procedure: US OB BPP w non-stress Biophysical profile. Reason for exam: Advanced maternal age. History of bariatric surgery. COMPARISON: 11/27/2024 TECHNIQUE: Transabdominal imaging of the gravid uterus was obtained. FINDINGS: Supervisor Instrument Maintenance reports a BPP of 8 out of 8. CYNTHIA is normal at 14cm. heart rate 153bpm. US/US OB BPP w non-stress IMPRESSION: BPP 8 out of 8. Impression dictated by: Corey Fregoso Jr., D.O.12/04/2024 11:36 AM Dictation Location: [place] [address] Electronically authenticated by: [id number] Y Date: 12/04/2024 11:36 Dictated By: Corey Fregoso M.D. Signed By: 12/04/24 1139 DD/ 1136 TD/TT: [place] [place]: [facility] Radiology Study observation (narrative) [facility] US OB BPP W NON-STRESS Ordered By: Radiologist Radiology on 12-04-2024 [facility] Work Phone: US OB BPP W NON-STRESS on 11-27-[address] [address] Ultrasound Report Signed Patient: FARTUN HALL MR#: [id number] : 1985 Acct:[id number] Age/Sex: 39 / F ADM Date: 11/27/24 Loc: [facility] 250-[address]: Fermín Hurtado D.O. Ordering Physician: Fermín Hurtado D.O. Date of Service: 11/27/24 Procedure(s): US OB BPP w non-stress Accession Number(s): [id number] cc: Everett Oliveros M.D.; Fermín Hurtado D.O. [place] [address] Patient Name: FARTUN HALL MRN: [facility]:[id number] date: 1985 Sex: F Assigned Patient Location: Current Patient Location: US Accession/Order Number: [id number] Exam Date: 11/27/2024 11:57 Report Date: 11/27/2024 11:59 At the request of: FERMÍN HURTADO DO Procedure: US OB BPP w non-stress BIOPHYSICAL PROFILE: CLINICAL INFORMATION: History of bariatric surgery Z98.84 COMPARISON: 11/20/2024 There is a single live intrauterine gestation in breech presentation. The reported gestational age is 33 weeks 4 days. The heart rate [id number] beats per minute. FINDINGS: TONE: 1 or [...] Patricia Gomez M.D.11/27/2024 11:59 AM Dictation Location: [place] [address] Electronically authenticated by: [id number] Y Date: 11/27/2024 11:59 Dictated By: Patricia Gomez M.D. Signed By: 11/27/24 1202 DD/ 1159 TD/TT: [place] [place]: [facility] Radiology, Radiologi MD lexii - 11/27/2024 [place] [address] Ultrasound Report Signed Patient: FARTUN HALL MR#: [id number] : 1985 Acct:[id number] Age/Sex: 39 / F ADM Date: 11/27/24 Loc: [facility] 250-[address]: Fermín Hurtado D.O. Ordering Physician: Fermín Hurtado D.O. Date of Service: 11/27/24 Procedure(s): US OB BPP w non-stress Accession Number(s): [id number] cc: Everett Oliveros M.D.; Fermín Hurtado D.O. The [place] [id number] Patient Name: FARTUN HALL MRN: [id number] date: 1985 Sex: F Assigned Patient Location: Current Patient Location: US Accession/Order Number: [id number] Exam Date: 11/27/2024 11:57 Report Date: 11/27/2024 11:59 At the request of: FERMÍN HURTADO DO Procedure: US OB BPP w non-stress BIOPHYSICAL PROFILE: CLINICAL INFORMATION: History of bariatric surgery Z98.84 COMPARISON: 11/20/2024 There is a single live intrauterine gestation in breech presentation. The reported gestational age is 33 weeks 4 days. The heart rate [id number] beats per minute. FINDINGS: TONE: 1 or [...] NORMAL BIOPHYSICAL PROFILE. Impression dictated by: Patricia Gmoez M.D.11/27/2024 11:59 AM Dictation Location: [place] [address] Electronically authenticated by: [id number] Y Date: 11/27/2024 11:59 Dictated By: Patricia Gomez M.D. Signed By: 11/27/24 1207 DD/ 1159 TD/TT: [place] [place]: [facility] Radiology Study observation (narrative) [facility] US OB BPP W NON-STRESS Ordered By: Radiologist Radiology on 11-27-2024 [facility] Work Phone: Urinalysis macro (dipstick) panel (U)on 11-26-2024 Bilirubin, UA Negative Negative - 4(70) +++ mg/dL [facility] Blood, UA Negative Negative - 50 Nnamdi/mcL [facility] Clarity, UA Clear [facility] Color, UA Yellow [facility] Glucose, UA Negative Negative - 2000(110) ++++ mg/dL [facility] Interpretation and review of laboratory results Abnormal [facility] Ketones, UA Positive Negative - 160(16) ++++ mg/dL [facility] Comment on above: trace Leukocytes, UA Negative Negative - 500+++ Dilcia/mcL [facility] Nitrite, UA Negative Negative - Positive [facility] pH, UA 6.5 5 - 9 [facility] Protein, UA Trace Negative - 2000(20) ++++ mg/dL [facility] Spec Grav, UA 1.025 1 - 1.03 [facility] Urobilinogen, UA 2.0 0.2 - 12 mg/dL [facility] US OB BPP W NON-STRESS on 11-20-2024 [place] [address] Ultrasound Report Signed Patient: FARTUN HALL MR#: [id number] : 1985 Acct:[id number] Age/Sex: 39 / F ADM Date: 11/20/24 Loc: US Attending Dr: Fermín Hurtado D.O. Ordering Physician: Fermín Hurtado D.O. Date of Service: 11/20/24 Procedure(s): US OB BPP w non-stress Accession Number(s): [id number] cc: Everett Oliveros M.D.; Fermín Hurtado D.O. The [address] [address] Patient Name: FARTUN HALL MRN: [facility]:[id number] date: 1985 Sex: F Assigned Patient Location: [facility] Current Patient Location: Accession/Order Number: [id number] Exam Date: 11/20/2024 15:25 Report Date: 11/20/2024 15:26 At the request of: FERMÍN HURTADO DO Procedure: US OB BPP w non-stress Biophysical profile. Reason for exam: Advanced maternal age. History of bariatric surgery. COMPARISON: 11/13/2024 TECHNIQUE: Transabdominal imaging of the gravid uterus was obtained. FINDINGS: Supervisor Instrument Maintenance reports a BPP of 8 out of 8. CYNTHIA is normal at 13.2cm. heart rate 156bpm. US/US OB BPP w non-stress IMPRESSION: BPP 8 out of 8. Impression dictated by: Corey Fregoso Jr., D.O.11/20/2024 3:26 PM Dictation Location: [place] [address] Electronically authenticated by: [id number] Y Date: 11/20/2024 15:26 Dictated By: Corey Fregoso M.D. Signed By: 11/20/24 1528 DD/ 1526 TD/TT: [place] [place]: [facility] RadiologyArianneogeloina shultz MD - 11/20/2024 The [place] [address] Ultrasound Report Signed Patient: FARTUN HALL MR#: [id number] : 1985 Acct:[id number] Age/Sex: 39 / F ADM Date: 11/20/24 Loc: US Attending Dr: Fermín Hurtado D.O. Ordering Physician: Fermín Hurtado D.O. Date of Service: 11/20/24 Procedure(s): US OB BPP w non-stress Accession Number(s): [id number] cc: Everett Oliveros M.D.; Fermín Hurtado D.O. [place] [address] Patient Name: FARTUN HALL MRN: [id number] date: 1985 Sex: F Assigned Patient Location: [facility] Current Patient Location: Accession/Order Number: [id number] Exam Date: 11/20/2024 15:25 Report Date: 11/20/2024 15:26 At the request of: FERMÍN HURTADO DO Procedure: US OB BPP w non-stress Biophysical profile. Reason for exam: Advanced maternal age. History of bariatric surgery. COMPARISON: 11/13/2024 TECHNIQUE: Transabdominal imaging of the gravid uterus was obtained. FINDINGS: Supervisor Instrument Maintenance reports a BPP of 8 out of 8. CYNTHIA is normal at 13.2cm. heart rate 156bpm. US/US OB BPP w non-stress IMPRESSION: BPP 8 out of 8. Impression dictated by: Corey Fregoso Jr., D.O.11/20/2024 3:26 PM Dictation Location: [place] [address] Electronically authenticated by: [id number] Y Date: 11/20/2024 15:26 Dictated By: Corey Fregoso M.D. Signed By: 11/20/24 1528 DD/ 1526 TD/TT: [place]: [facility] Radiology Study observation (narrative) [facility] US OB BPP W NON-STRESS Ordered By: Radiologist Radiology on 11-20-2024 [facility] Work Phone: Urinalysis macro (dipstick) panel (U)on 11-12-2024 Bilirubin, UA Positive Negative - 4(70) +++ mg/dL [facility] Comment on above: small Blood, UA Negative Negative - 50 Nnamdi/mcL [facility] Clarity, UA Clear [facility] Color, UA Yellow [facility] Glucose, UA Negative Negative - 2000(110) ++++ mg/dL [facility] Interpretation and review of laboratory results Abnormal [facility] Ketones, UA Positive Negative - 160(16) ++++ mg/dL [facility] Comment on above: 15mg/dL Leukocytes, UA Negative Negative - 500+++ Dilcia/mcL [facility] Nitrite, UA Negative Negative - Positive [facility] pH, UA 6 5 - 9 [facility] Protein, UA Positive Negative - 1999(20) ++++ mg/dL [facility] Comment on above: 30mg/dL Spec Grav, UA 1.025 1 - 1.03 [facility] Urobilinogen, UA 1.0 0.2 - 12 mg/dL [facility] Urinalysis macro (dipstick) panel (U)on 10-29-2024 Bilirubin, UA Negative Negative - 4(70) +++ mg/dL [facility] Blood, UA Negative Negative - 50 Nnamdi/mcL [facility] Clarity, UA Clear [facility] Color, UA Yellow [facility] Glucose, UA Negative Negative - 1999(110) ++++ mg/dL [facility] Interpretation and review of laboratory results Abnormal [facility] Ketones, UA Negative Negative - 160(16) ++++ mg/dL [facility] Leukocytes, UA Negative Negative - 500+++ Dilcia/mcL [facility] Nitrite, UA Negative Negative - Positive [facility] pH, UA 7 5 - 9 [facility] Protein, UA Trace Negative - 1999(20) ++++ mg/dL [facility] Spec Grav, UA 1.025 1 - 1.03 [facility] Urobilinogen, UA 4.0 0.2 - 12 mg/dL [facility] ALL CBC WITH AUTO DIFFon BASOPHILS ABSOLUTE AUTO 0.1 [facility] Basophils/100 WBC (Bld) 0.6 % 0.2 - 2.0 % [facility] Eosinophils/100 WBC (Bld) 3.2 % 0.9 - 7.0 % [facility] Erythrocyte distribution width (RBC) [Ratio] 13.1 % 11.0 - 15.0 % [facility] Hematocrit (Bld) [Volume fraction] 34.1 % Low 36.0 - 48.0 % [facility] Hemoglobin (Bld) [Mass/Vol] 10.9 g/dL Low 12.0 - 16.0 g/dL [facility] IMMATURE GRANULOCYTES ABS AUTO 0.03 [facility] Immature granulocytes/100 WBC (Bld) 0.3 % 0.0 - 0.5 % [facility] Interpretation and review of laboratory results Abnormal [facility] LYMPHOCYTES ABSOLUTE AUTO 2.9 [facility] Lymphocytes/100 WBC (Bld) 27.6 % 20.5 - 60.0 % [facility] MCH (RBC) [Entitic mass] 26.5 pg Low 26.7 - 34.0 pg [facility] MCHC (RBC) [Mass/Vol] 32 g/dL 29.9 - 35.2 g/dL [facility] MCV (RBC) [Entitic vol] 82.8 fL 81.0 - 99.0 fL [facility] MONOCYTES ABSOLUTE AUTO 0.7 [facility] Monocytes/100 WBC (Bld) 6.3 % 1.7 - 12.0 % [facility] NEUTROPHILS ABSOLUTE AUTO 6.5 [facility] Neutrophils/100 WBC (Bld) 62 % 43.0 - 75.0 % [facility] Platelet mean volume (Bld) [Entitic vol] 11.6 fL 9.5 - 13.5 fL [facility] TBH EO # 0.3 [facility]H PLT 348 [facility] RBC 4.12 Low [facility] WBC 10.4 [facility] Urinalysis macro (dipstick) panel (U)on 10-03-2024 Bilirubin, UA Negative Negative - 4(70) +++ mg/dL [facility] Blood, UA Negative Negative - 50 Nnamdi/mcL [facility] Clarity, UA Clear [facility] Color, UA Yellow [facility] Glucose, UA Negative Negative - 1999(110) ++++ mg/dL [facility] Interpretation and review of laboratory results Abnormal [facility] Ketones, UA Negative Negative - 160(16) ++++ mg/dL [facility] Leukocytes, UA Negative Negative - 500+++ Dilcia/mcL [facility] Nitrite, UA Negative Negative - Positive [facility] pH, UA 6.5 5 - 9 [facility] Protein, UA Trace Negative - 1999(20) ++++ mg/dL [facility] Spec Grav, UA 1.025 1 - 1.03 [facility] Urobilinogen, UA 1.0 0.2 - 12 mg/dL [facility] Urinalysis macro (dipstick) panel (U)on 09-04-2024 Bilirubin, UA Negative Negative - 4(70) +++ mg/dL [facility] Blood, UA Negative Negative - 50 Nnamdi/mcL [facility] Clarity, UA Clear [facility] Color, UA Yellow [facility] Glucose, UA Negative Negative - 1999(110) ++++ mg/dL [facility] Interpretation and review of laboratory results Normal [facility] Ketones, UA Negative Negative - 160(16) ++++ mg/dL [facility] Leukocytes, UA Negative Negative - 500+++ Dilcia/mcL [facility] Nitrite, UA Negative Negative - Positive [facility] pH, UA 5.5 5 - 9 [facility] Protein, UA Negative Negative - 2000(20) ++++ mg/dL [facility] Spec Grav, UA 1.02 1 - 1.03 [facility] Urobilinogen, UA 1.0 0.2 - 12 mg/dL [facility] AFP, SERUM, OPEN SPINA BIFID Aon 08-11-2024 AFP MOM 1.01 . [facility] AFP VALUE 39.6 ng/mL . [facility] COMMENT: Comment . [facility] Comment on above: Hazel Dixon , Ph.D., [facility] Director References: Available Upon Request. Multiples Of Median Cutoffs For AFP Elevations Krishna 2.5 Black 2.8 IDD 2.0 Twins 4.5 Abbreviation Definitions IDD - Insulin Dep Diabetes OSBR - Open Spina Bifida Risk For further inquiries contact [employer] at [phone]. This test was developed and its performance characteristics determined by [employer]. It has not been cleared or approved by the Food and Drug Administration. Performed at: [facility] [address] [place], [place] [id number] Recovery Room Nurse: Mc Doshi [facility], Phone: [phone] GEST. AGE ON COLLECTION DATE 17.7 . weeks [facility] GESTAT. AGE BASED ON Ultrasound . [facility] Comment on above: 16.6 on 07/31/2024 Recalculations are not recommended when gestational dating by LMP and ultrasound are within 10 days. INSULIN DEP DIABETES No . [facility] INTERPRETATION Comment . [facility] Comment on above: Interpretation: Scre en Negative [...] Customer Services to discuss available options. The [employer] recommends amniocentesis be offered to women age 35 and older. [age] [facility] MULTIPLE GESTATION No . [facility] OS[place]ISK [place] [id number] . [facility] RACE . [facility] RESULTS Report . [facility] TEST RESULTS: Negative . [facility] WEIGHT 161 . lbs [facility] N N ULTRASOUND [id number] 4 16 N 1 Y 161 N N N N N White/ [facility] IGP,APTIMA HPV,AGE GDLNon AGE GDLN ACOG TESTING Note . [facility] Comment on above: TESTS RESULT FLAG UN ITS REF RANGE LAB Clinician Provided Cytology Information Source.............Cervix Other.............. No. of containers..01 ThinPrep Vial Age Algo ACOG Aniya... 30-65 01 FLAG LEGEND: L-Low Normal,H-High Normal,LL-Alert Low,HH-Alert High <-Panic Low,>-Panic High,A-Abnormal,AA-Critical Abnormal Performed at: 01 =G [address] [place] [address] Dipti Hurtado MD, HPV APTIMA Negative Negative [facility] Comment on above: This nucleic acid am plification test detects fourteen high- risk HPV types (16,18,31,33,35,39,45,51,52,56,58,59,66,68) without differentiation. Performed at: = - [address], [place] [id number] Recovery Room Nurse: Dipti Hurtado MD, Phone: [phone] Performed at: - [address], [place] [id number] Recovery Room Nurse: Dipti Hurtado MD, Phone: [phone] IGP, APTIMA HPV, RFX 16/18,45 Note . [facility] Comment on above: TESTS RESULT FLAG UN ITS REF RANGE LAB DIAGNOSIS: 02 NEGATIVE FOR INTRAEPITHELIAL LESION OR MALIGNANCY. Specimen adequacy: 02 Satisfactory for evaluation. Endocervical and/or squamous metaplastic cells (endocervical component) are present. Performed by: Shasha Kincaid, Professor Of Environmental Engineering (ASCP) . 02 Note: Note 02 The [...] Low,>-Panic High,A-Abnormal,AA-Critical Abnormal Performed at: [address] [facility] [address] Dipti Hurtado MD, SPATULA-ALONE CERVIX [facility] RECURRENT VAGINITIS (HTRX)on 08-03-2024 ATOPOBIUM VAGINAE 0 [facility] Healthcare ATOPOBIUM VAGINAE Not detected [facility] BVAB 2,3 (BACTERIAL VAGINOSIS ASSOCIATED BACTERIA 2, 3); MOBILUNCUS SPP 27.074 Abnormal [facility] BVAB 2,3 (BACTERIAL VAGINOSIS ASSOCIATED BACTERIA 2, 3); MOBILUNCUS SPP Detected Abnormal [facility] Healthcare LULY ALBICANS, PARAPSILOSIS, TROPICALIS 0 [facility] LULY ALBICANS, PARAPSILOSIS, TROPICALIS Not detected [facility] LULY GLABRATA 0 [facility] Healthcare LULY GLABRATA Not detected [facility] LULY KRUSEI 0 [facility] Healthcare LULY KRUSEI Not detected [facility] CHLAMYDIA TRACHOMATIS 0 [facility] Healthcare CHLAMYDIA TRACHOMATIS Not detected N S [facility] GARDNERELLA VAGINALIS 30.955 Abnormal [facility] Healthcare GARDNERELLA VAGINALIS Detected Abnormal [facility] Healthcare Interpretation and review of laboratory results Abnormal [facility] Healthcare MEGASPHAERA (TYPES 1, 2) 0 [facility] Healthcare MEGASPHAERA (TYPES 1, 2) Not detected [facility] MYCOPLASMA GENITALIUM 0 [facility] Healthcare MYCOPLASMA GENITALIUM Not detected N S [facility] NEISSERIA GONORRHOEAE 0 [facility] NEISSERIA GONORRHOEAE Not detected N [facility] TET B, TET M 16.937 Abnormal [facility] TET B, TET M Detected Abnormal [facility] Healthcare TRICHOMONAS VAGINALIS 0 [facility] TRICHOMONAS VAGINALIS Not detected N S [facility] Healthcare Urinalysis macro (dipstick) panel (U)on 07-31-2024 Bilirubin, UA Negative Negative - 4(70) +++ mg/dL [facility] Blood, UA Negative Negative - 50 Nnamdi/mcL [facility] Healthcare Clarity, UA Clear [facility] Color, UA Yellow [facility] Glucose, UA Negative Negative - 1999(110) ++++ mg/dL [facility] Interpretation and review of laboratory results Normal [facility] Ketones, UA Negative Negative - 160(16) ++++ mg/dL [facility] Leukocytes, UA Negative Negative - 500+++ Dilcia/mcL [facility] Nitrite, UA Negative Negative - Positive [facility] pH, UA 6 5 - 9 [facility] Protein, UA Negative Negative - 1999(20) ++++ mg/dL [facility] Spec Grav, UA 1.015 1 - 1.03 [facility] Urobilinogen, UA 1.0 0.2 - 12 mg/dL [facility] ALL CBC WITH AUTO DIFFon BASOPHILS ABSOLUTE AUTO 0.1 [facility] Basophils/100 WBC (Bld) 0.6 % 0.2 - 2.0 % [facility] Eosinophils/100 WBC (Bld) 3.7 % 0.9 - 7.0 % [facility] Erythrocyte distribution width (RBC) [Ratio] 13.1 % 11.0 - 15.0 % [facility] Hematocrit (Bld) [Volume fraction] 36.3 % 36.0 - 48.0 % [facility] Hemoglobin (Bld) [Mass/Vol] 11.7 g/dL Low 12.0 - 16.0 g/dL [facility] IMMATURE GRANULOCYTES ABS AUTO 0.03 [facility] Immature granulocytes/100 WBC (Bld) 0.3 % 0.0 - 0.5 % [facility] Interpretation and review of laboratory results Abnormal [facility] LYMPHOCYTES ABSOLUTE AUTO 3.1 [facility] Lymphocytes/100 WBC (Bld) 31.7 % 20.5 - 60.0 % [facility] MCH (RBC) [Entitic mass] 27.7 pg 26.7 - 34.0 pg [facility] MCHC (RBC) [Mass/Vol] 32.2 g/dL 29.9 - 35.2 g/dL [facility] MCV (RBC) [Entitic vol] 85.8 fL 81.0 - 99.0 fL [facility] MONOCYTES ABSOLUTE AUTO 0.6 [facility] Monocytes/100 WBC (Bld) 6.3 % 1.7 - 12.0 % [facility] NEUTROPHILS ABSOLUTE AUTO 5.6 [facility] Neutrophils/100 WBC (Bld) 57.4 % 43.0 - 75.0 % [facility] Platelet mean volume (Bld) [Entitic vol] 11.9 fL 9.5 - 13.5 fL [facility] EO # 0.4 [facility] PLT 306 [facility] RBC 4.23 [facility] WBC 9.8 [facility] HCG ( test) Ql (U)o n 07-04-2024 Interpretation and review of laboratory results Abnormal [facility] Preg Test, Ur Positive Negative [facility] Urinalysis macro (dipstick) panel (U)on 07-04-2024 Bilirubin, UA Negative Negative - 4(70) +++ mg/dL [facility] Blood, UA Positive Negative - 50 Nnamdi/mcL [facility] Comment on above: trace-intact Clarity, UA Clear [facility] Color, UA Yellow [facility] Glucose, UA Negative Negative - 2000(110) ++++ mg/dL [facility] Interpretation and review of laboratory results Abnormal [facility] Ketones, UA Negative Negative - 160(16) ++++ mg/dL [facility] Leukocytes, UA Negative Negative - 500+++ Dilcia/mcL [facility] Nitrite, UA Negative Negative - Positive [facility] pH, UA 6 5 - 9 [facility] Protein, UA Negative Negative - 2000(20) ++++ mg/dL [facility] Spec Grav, UA 1.03 1 - 1.03 [facility] Urobilinogen, UA 0.2 0.2 - 12 mg/dL [facility] PREG QUANT HCGon 01-17-2023 HCG QUANT <1 Normal [facility] Comment on above: Performed By: #### P REGQNT #### [facility] [address] [address] [address] Meghan Vital HCG RANGE SEE BELOW Normal [facility] Comment on above: Result Comment: 5-50 0.2-1 WEEK 50-500 1-2 WEEKS 100-5,000 2-3 WEEKS 500-10,000 3-4 WEEKS 1,000-50,000 4-5 WEEKS 10,000-100,000 5-6 WEEKS 15,000-200,000 6-8 WEEKS 10,000-100,000 2-3 MONTHS Performed By: #### P REGQNT #### [facility] [address] [place] [address] Dr. Meghan Vital PROGESTERONEon 01-10-2023 Progesterone 8.9 ng/mL Normal [facility] Comment on above: Result Comment: Foll icular phase 0.1 - 0.9 Luteal phase 1.8 - 23.9 Ovulation phase 0.1 - 12.0 First trimester 11.0 - 44.3 Second trimester 25.4 - 83.3 Third trimester 58.7 - 214.0 Postmenopausal 0.0 - 0.1 Performed By: #### H CGSUB #### [facility] [address] [place] [address] Dr. Meghan Vital PAP ACOG PANEL 2: 30 to 65on 11-30-2022 . . Normal [facility] Comment on above: Result Comment: Perf ormed at: WB Performed By: #### [id number] #### [facility] [address] [place] [address] Dr. Meghan Vital Age Gdln ACOG Testing [facility] Comment on above: Performed By: #### [id number] #### [facility] [address] [place] [address] Dr. Meghan Vital DIAGNOSIS: Comment Normal [facility] Comment on above: Result Comment: NEGA TIVE FOR INTRAEPITHELIAL LESION OR MALIGNANCY. Performed at: WB Performed By: #### [id number] #### [facility] [address] [place] [address] Dr. Meghan Vital HPV Aptima Positive Abnormal Negative [facility] Comment on above: Result Comment: This nucleic acid amplification test detects fourteen high-risk HPV types (16,18,31,33,35,39,45,51,52,56,58,59,66,68) without differentiation. Performed at: =G Performed By: #### [id number] #### [facility] [address] [place] [address] Dr. Meghan Vital HPV Genotype 16 Negative Normal Negative [facility] Comment on above: Performed By: #### [id number] #### [facility] [address] [place] [address] Dr. Meghan Vital HPV Genotype 18,45 Negative Normal Negative [facility] Comment on above: Performed By: #### [id number] #### [facility] [address] [place] [address] Dr. Meghan Vital HPV Genotype Reflex Comment Normal [facility] Comment on above: Result Comment: Aiyana iqbal, see HPV Genotype results. Performed at: WB Performed By: #### [id number] #### [facility] [address] [place] [address] Dr. Meghan Vital Methodology: Comment Normal [facility] Comment on above: Result Comment: This liquid based ThinPrep(R) pap test was screened with the use of an image guided system. Performed at: WB Performed By: #### [id number] #### [facility] [address] [place] [address] Dr. Meghan Vital Note: Comment Normal [facility] Comment on above: Result Comment: The Pap smear is a screening test designed to aid in the detection of premalignant and malignant conditions of the uterine cervix. It is not a diagnostic procedure and should not be used as the sole means of detecting cervical cancer. Both false-positive and false-negative reports do occur. . Performed at: WB Performed By: #### [id number] #### [facility] [address] [place] [address] Dr. Meghan Vital Performed by: Comment Normal [facility] Comment on above: Result Comment: Rahul Kincaid, Professor Of Environmental Engineering (ASCP) Performed at: WB Performed By: #### [id number] #### [facility] [address] [place] [address] Dr. Meghan Vital Specimen adequacy: Comment Normal [facility] Comment on above: Result Comment: Sati sfactory for evaluation. Endocervical and/or squamous metaplastic cells (endocervical component) are present. Performed at: WB Performed By: #### [id number] #### [facility] [address] [place] [address] Dr. Meghan Vital ANTI-MULLERIAN HORMONEon Anti-Mullerian Hormone (AMH) 3.03 ng/mL Normal [facility] Comment on above: Result Comment: For assays employing antibodies, the possibility exists for interference by heterophile antibodies in the samples.1 1.Bailey Dickson Interferences in Immunoassays - still a threat. Clin. Chem. 2000; 46: 6446-1554. This test was developed and its performance characteristics determined by [employer]. It has not been cleared or approved by the Food and Drug Administration. Reference Range: Females 36 - 40y: 0.42 - 8.34 Median 1.69 AMH concentrations of >= 1.06 ng/mL is correlated with a better response to ovarian stimulation, produced more retrievable oocytes and higher odds of live according to Shaniceer et al. Fertility and Sterility. 2010: 94:8819-1267. The current AMH test method correlates with [...] tumor. Performed By: #### H CGSUB #### [facility] [address] [place] [address] Dr. Meghan Vital CBC AUTO DIFFon 11-21-2022 BASO # 0.1 103/ul Normal 0.0-0.1 [facility] Comment on above: Performed By: #### H CGSUB #### [facility] [address] [place] [address] Dr. Meghan Vital Basophils/100 WBC (Bld) 0.8 % Normal 0.2-2.0 [facility] Comment on above: Performed By: #### H CGSUB #### [facility] [address] [place] [address] Dr. Meghan Vital EO # 0.2 103/ul Normal 0.0-0.7 [facility] Comment on above: Performed By: #### H CGSUB #### [facility] [address] [place] [address] Dr. Meghan Vital Eosinophils/100 WBC (Bld) 2.3 % Normal 0.9-7.0 [facility] Comment on above: Performed By: #### H CGSUB #### [facility] [address] [place] [address] Dr. Meghan Vital Erythrocyte distribution width (RBC) [Ratio] 13.3 % Normal 11.0-15.0 [facility] Comment on above: Performed By: #### H CGSUB #### [facility] [address] [place] [address] Dr. Meghan Vital Hematocrit (Bld) [Volume fraction] 42.4 % Normal 36.0-48.0 [facility] Comment on above: Performed By: #### H CGSUB #### [facility] [address] [place] [address] Dr. Meghan Vital Hemoglobin (Bld) [Mass/Vol] 13.6 g/dL Normal 12.0-16.0 [facility] Comment on above: Performed By: #### H CGSUB #### [facility] [address] [place] [address] Dr. Meghan Vital IG # 0.01 10e3/ul Normal 0.00-0.03 [facility] Comment on above: Performed By: #### H CGSUB #### [facility] [address] [place] [address] Dr. Meghan Vital IG % 0.1 % Normal 0.0-0.5 [facility] Comment on above: Performed By: #### H CGSUB #### [facility] [address] [place] [address] Dr. Meghan Vital LYMPH # 3.9 103/ul Critically high 1.2-3.8 [facility] Comment on above: Performed By: #### H CGSUB #### [facility] [address] [place] [address] Dr. Meghan Vital Lymphocytes/100 WBC (Bld) 42.7 % Normal 20.5-60.0 [facility] Comment on above: Performed By: #### H CGSUB #### [facility] [address] [place] [address] Dr. Meghan Vital MANUAL DIFF REQ NO Normal [facility] Comment on above: Performed By: #### H CGSUB #### [facility] [address] [place] [address] Dr. Meghan Vital MCH (RBC) [Entitic mass] 27.4 pg Normal 26.7-34.0 [facility] Comment on above: Performed By: #### H CGSUB #### [facility] [address] [place] [address] Dr. Meghan Vital MCHC (RBC) [Mass/Vol] 32.1 g/dL Normal 29.9-35.2 [facility] Comment on above: Performed By: #### H CGSUB #### [facility] [address] [place] [address] Dr. Meghan Vital MCV (RBC) [Entitic vol] 85.3 fL Normal 81.0-99.0 [facility] Comment on above: Performed By: #### H CGSUB #### [facility] [address] [place] [address] Dr. Meghan Vital MONO # 0.6 103/ul Normal 0.3-0.8 [facility] Comment on above: Performed By: #### H CGSUB #### [facility] [address] [place] [address] Dr. Meghan Vital Monocytes/100 WBC (Bld) 6.1 % Normal 1.7-12.0 [facility] Comment on above: Performed By: #### H CGSUB #### [facility] [address] [place] [address] Dr. Meghan Vital NEUT # 4.3 103/ul Normal 1.4-6.5 [facility] Comment on above: Performed By: #### H CGSUB #### [facility] [address] [place] [address] Dr. Meghan Vital Neutrophils/100 WBC (Bld) 48.0 % Normal 43.0-75.0 [facility] Comment on above: Performed By: #### H CGSUB #### [facility] [address] [address] [address] Meghan Vital Platelet mean volume (Bld) [Entitic vol] 11.5 fL Normal 9.5-13.5 [facility] Comment on above: Performed By: #### H CGSUB #### [facility] [address] [address] [address] Meghan Vital PLT 251 103/ul Normal 150-450 [facility] Comment on above: Performed By: #### H CGSUB #### [facility] [address] [address] [address] Meghan Vital RBC 4.97 106/ul Normal 4.20-5.40 [facility] Comment on above: Performed By: #### H CGSUB #### [facility] [address] [place] [address] Dr. Meghan Vital WBC 9.0 103/ul Normal 4.0-11.0 [facility] Comment on above: Performed By: #### H CGSUB #### [facility] [address] [place] [address] Dr. Meghan Vital FREE T4on 11-21-2022 Free T4 [Mass/Vol] 1.03 ng/dL Normal 0.76-1.46 [facility] Comment on above: Performed By: #### F T4 #### [facility] [address] [place] [address] Dr. Meghan Vital GLYCOHEMOGLOBIN A1Con 2022 ADA RECOMMENDATION SEE BELOW Normal [facility] Comment on above: Result Comment: ADA RECOMMENDED LIMIT 4.0 - 6.0 ADA THERAPEUTIC TARGET < 7.0 ACTION SUGGESTED > 7.0 Performed By: #### H CGSUB #### [facility] [address] [place] [address] Dr. Meghan Vital Glucose [Mass/Vol] 97 mg/dL Normal [facility] Comment on above: Performed By: #### H CGSUB #### [facility] [address] [place] [address] Dr. Meghan Vital HbA1c (Bld) [Mass fraction] 5.0 % Normal 4.5-6.2 [facility] Comment on above: Performed By: #### H CGSUB #### [facility] [address] [place] [address] Dr. Meghan Vital TSHon 11-21-2022 TSH 1.636 uIU/mL Normal 0.358-3.74 0 [facility] Comment on above: Performed By: #### H CGSUB #### [facility] [address] [place] [address] Dr. Meghan Vital PROGESTERONEon 10-12-2022 Progesterone 6.8 ng/mL Normal [facility] Comment on above: Result Comment: Foll icular phase 0.1 - 0.9 Luteal phase 1.8 - 23.9 Ovulation phase 0.1 - 12.0 First trimester 11.0 - 44.3 Second trimester 25.4 - 83.3 Third trimester 58.7 - 214.0 Postmenopausal 0.0 - 0.1 Performed By: #### H CGSUB #### [facility] [address] [place] [address] Dr. Meghan Vital CBC AUTO DIFFon 09-23-2022 BASO # 0.1 103/ul Normal 0.0-0.1 [facility] Comment on above: Performed By: #### C BC #### [facility] [address] [place] [address] Dr. Meghan Vital Basophils/100 WBC (Bld) 1.2 % Normal 0.2-2.0 [facility] Comment on above: Performed By: #### C BC #### [facility] [address] [place] [address] Dr. Meghan Vital EO # 0.2 103/ul Normal 0.0-0.7 [facility] Comment on above: Performed By: #### C BC #### [facility] [address] [place] [address] Dr. Meghan Vital Eosinophils/100 WBC (Bld) 2.4 % Normal 0.9-7.0 [facility] Comment on above: Performed By: #### C BC #### [facility] [address] [place] [address] Dr. Meghan Vital Erythrocyte distribution width (RBC) [Ratio] 13.1 % Normal 11.0-15.0 [facility] Comment on above: Performed By: #### C BC #### [facility] [address] [place] [address] Dr. Meghan Vital Hematocrit (Bld) [Volume fraction] 38.1 % Normal 36.0-48.0 [facility] Comment on above: Performed By: #### C BC #### [facility] [address] [place] [address] Dr. Meghan Vital Hemoglobin (Bld) [Mass/Vol] 13.4 g/dL Normal 12.0-16.0 [facility] Comment on above: Performed By: #### C BC #### [facility] [address] [place] [address] Dr. Meghan Vital IG # 0.01 10e3/ul Normal 0.00-0.03 [facility] Comment on above: Performed By: #### C BC #### [facility] [address] [place] [address] Dr. Meghan Vital IG % 0.1 % Normal 0.0-0.5 [facility] Comment on above: Performed By: #### C BC #### [facility] [address] [place] [address] Dr. Meghan Vital LYMPH # 3.4 103/ul Normal 1.2-3.8 [facility] Comment on above: Performed By: #### C BC #### [facility] [address] [place] [address] Dr. Meghan Vital Lymphocytes/100 WBC (Bld) 45.2 % Normal 20.5-60.0 [facility] Comment on above: Performed By: #### C BC #### [facility] [address] [place] [address] Dr. Meghan Vital MANUAL DIFF REQ NO Normal [facility] Comment on above: Performed By: #### C BC #### [facility] [address] [place] [address] Dr. Meghan Vital MCH (RBC) [Entitic mass] 27.8 pg Normal 26.7-34.0 [facility] Comment on above: Performed By: #### C BC #### [facility] [address] [place] [address] Dr. Meghan Vital MCHC (RBC) [Mass/Vol] 35.2 g/dL Normal 29.9-35.2 [facility] Comment on above: Performed By: #### C BC #### [facility] [address] [place] [address] Dr. Meghan Vital MCV (RBC) [Entitic vol] 79.0 fL Critically low 81.0-99.0 [facility] Comment on above: Performed By: #### C BC #### [facility] [address] [place] [address] Dr. Meghan Vital MONO # 0.4 103/ul Normal 0.3-0.8 [facility] Comment on above: Performed By: #### C BC #### [facility] [address] [place] [address] Dr. Meghan Vital Monocytes/100 WBC (Bld) 5.3 % Normal 1.7-12.0 [facility] Comment on above: Performed By: #### C BC #### [facility] [address] [place] [address] Dr. Meghan Vital NEUT # 3.4 103/ul Normal 1.4-6.5 [facility] Comment on above: Performed By: #### C BC #### [facility] [address] [place] [address] Dr. Meghan Vital Neutrophils/100 WBC (Bld) 45.8 % Normal 43.0-75.0 [facility] Comment on above: Performed By: #### C BC #### [facility] [address] [place] [address] Dr. Meghan Vital Platelet mean volume (Bld) [Entitic vol] 11.4 fL Normal 9.5-13.5 [facility] Comment on above: Performed By: #### C BC #### [facility] [address] [place] [address] Dr. Meghan Vital PLT 280 103/ul Normal 150-450 [facility] Comment on above: Performed By: #### C BC #### [facility] [address] [place] [address] Dr. Meghan Vital RBC 4.82 106/ul Normal 4.20-5.40 [facility] Comment on above: Performed By: #### C BC #### [facility] [address] [place] [address] Dr. Meghan Vital WBC 7.5 103/ul Normal 4.0-11.0 [facility] Comment on above: Performed By: #### C BC #### [facility] [address] [place] [address] Dr. Meghan Vital FREE T4on 09-23-2022 Free T4 [Mass/Vol] 1.17 ng/dL Normal 0.76-1.46 [facility] Comment on above: Performed By: #### H CGSUB #### [facility] [address] [place] [address] Dr. Meghan Vital GLYCOHEMOGLOBIN A1Con 2022 ADA RECOMMENDATION SEE BELOW Normal [facility] Comment on above: Result Comment: ADA RECOMMENDED LIMIT 4.0 - 6.0 ADA THERAPEUTIC TARGET < 7.0 ACTION SUGGESTED > 7.0 Performed By: #### A 1C #### [facility] [address] [place] [address] Dr. Meghan Vital Glucose [Mass/Vol] 100 mg/dL Normal [facility] Comment on above: Performed By: #### A 1C #### [facility] [address] [place] [address] Dr. Meghan Vital HbA1c (Bld) [Mass fraction] 5.1 % Normal 4.5-6.2 [facility] Comment on above: Performed By: #### A 1C #### [facility] [address] [place] [address] Dr. Meghan Vital TSHon 09-23-2022 TSH 1.235 uIU/mL Normal 0.358-3.74 0 [facility] Comment on above: Performed By: #### T SH #### [facility] [address] [place] [address] Dr. Meghan Vital PREG QUANT HCGon 07-12-2022 HCG QUANT 1 mIU/mL Normal [facility] Comment on above: Performed By: #### P REGQNT #### [facility] [address] [place] [address] Dr. Meghan Vital HCG RANGE SEE BELOW Normal [facility] Comment on above: Result Comment: 5-50 0.2-1 WEEK 50-500 1-2 WEEKS 100-5,000 2-3 WEEKS 500-10,000 3-4 WEEKS 1,000-50,000 4-5 WEEKS 10,000-100,000 5-6 WEEKS 15,000-200,000 6-8 WEEKS 10,000-100,000 2-3 MONTHS Performed By: #### P REGQNT #### [facility] [address] [place] [address] Dr. Meghan Vital XR HYSTEROSALPINGOGRAMon XR HYSTEROSALPINGOGRAM [...] YADIRA BAKER Date: 2022-07-12 12:12 Normal [facility] PROGESTERONEon 06-30-2022 Progesterone 20.9 ng/mL Normal [facility] Comment on above: Result Comment: Foll icular phase 0.1 - 0.9 Luteal phase 1.8 - 23.9 Ovulation phase 0.1 - 12.0 First trimester 11.0 - 44.3 Second trimester 25.4 - 83.3 Third trimester 58.7 - 214.0 Postmenopausal 0.0 - 0.1 Performed By: #### P ROGES #### [facility] [address] [place] [address] Dr. Meghan Vital HCG-BETA SUBUNIT QUANTon hCG,Beta Subunit,Qnt,Serum <1 Normal [facility] Comment on above: Result Comment: Fema le (Non-) 0 - 5 (Postmenopausal) 0 - 8 . Female () Weeks of Gestation 3 6 - 71 4 10 - 750 5 217 - 7138 6 158 - [phone] 7 [id number] [id number] [phone] [id number] [id number] [phone] [id number] [id number] 10 30474 -[phone] 12 90518 -[phone] 14 11387 - 16288 15 74315 - 34668 16 9040 - 49397 17 8175 - 42088 18 8099 - 75316 Jeremy ECLIA methodology Performed By: #### H CGSUB #### [facility] [address] [place] [address] Dr. Meghan Vital HCG-BETA SUBUNIT QUANTon hCG,Beta Subunit,Qnt,Serum <1 Normal [facility] Comment on above: Result Comment: Fema le (Non-) 0 - 5 (Postmenopausal) 0 - 8 . Female () Weeks of Gestation 3 6 - 71 4 10 - 750 5 217 - 7138 6 158 - 85077 7 3697 -542941 8 10348 -416243 9 05518 -449177 10 82132 -428898 12 91422 -925048 14 81984 - 28063 15 54325 - 80548 16 9040 - 70199 17 8175 - 63351 18 8099 - 12941 Jeremy ECLIA methodology Performed By: #### H CGSUB #### [facility] [address] [place] [address] Dr. Meghan Vital PROGESTERONEon 02-26-2022 Progesterone <0.1 Normal [facility] Comment on above: Result Comment: Foll icular phase 0.1 - 0.9 Luteal phase 1.8 - 23.9 Ovulation phase 0.1 - 12.0 First trimester 11.0 - 44.3 Second trimester 25.4 - 83.3 Third trimester 58.7 - 214.0 Postmenopausal 0.0 - 0.1 Performed By: #### P PHIL #### [facility] [address] [place] [address] Dr. Meghan Vital US PELVIS AND TRANSVAGon [...] by: YANIRA MICHAEL Date: 2022-02-24 16:57 Normal [facility] Ambulatory Clinical Summaryo n 12-22-2020 Ambulatory Clinical Summary {[id number]}CD:61 4368 Normal [facility] Family Medicine Office/Clini c Noteon 12-22-2020 [...] documented 3008F Office Visit Level 2 Est 19098 2. Tobacco use (Z72.0: Tobacco use) We [...] smoker 1034F Office Visit Level 2 Est 97679 3. Hordeolum externum right lower eyelid (H00.012: Hordeolum externum right lower eyelid) Will treat with bacitracin ointment. May use warm compresses 3-4 x day. FU with PCP if not gradually improving over next 7 days, sooner if significantly spreading erythema, edema, warmth, fever. Patient verbalized understanding of tx plan Ordered: Office Visit Level 2 Est 26001 Orders: erythromycin ophthalmic, 0.5 in, OPTH, QID [...] Family history is negative Normal [facility] Comment on above: Result Comment: Elec [...] methods. Where to find more information ? [place] [employer]: www.lung.org ? [place] [employer]: www.cancer.org Summary ? Smoking cigarettes [...] 09/21/2005 Document Revised: 11/15/2018 Document Reviewed: 08/18/2017 [employer] Patient Education ? 2019 [employer]. [facility] Provider Letteron 12-22-2020 Provider Letter (Inserted Image. Mary ble to display) December 22, 2020 FARTUN RODRÍGUEZ [address] [place] [phone] FARTUN RODRÍGUEZ 1985 To Whom It May Concern, Please excuse above patient from work. 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 Cigarettes, Yes, 11/17/2020 [facility] Comment on above: Result Comment: Elec tronically Signed By: LASHANDA BAUMAN CNP\.br\Date and Time Signed: 11/17/20 17:56 EDT Patient [...] to help relieve symptoms, such as: ? Wjcn-jhg-zctwabi cold medicines. ? Cough suppressants. Coughing is [...] other clear broths. General instructions ? Take gbol-jvb-cyugfwb and prescription medicines only as told by [...] and water are not available, use hand pneumatic drum sander. ? Avoid touching your mouth, face, eyes, [...] a common infecti (more content not included)... [facility] Provider Letteron 11-17-2020 Provider Letter (Inserted Image. Mary ble to display) November 17, 2020 FARTUN RODRÍGUEZ [address] [place] [phone] FARTUN RODRÍGUEZ 1985 To Whom It May Concern, Please excuse above patient from work. Date of Illness: From: 11/17/2020 To: 11/18/2020 May Return to Work On:11/19/2020 Comments: Patient above was seen at [facility] on 11/17/2020. Sincerely, [facility] [address] [place] [phone] [facility] Provider Letteron 09-22-2020 Provider Letter (Inserted Image. Mary ble to display) September 22, 2020 FARTUN RODRÍGUEZ [address] [place] [phone] FARTUN RODRÍGUEZ 1985 To Whom It May Concern, Please excuse above patient from work. Date of Illness: From: 09/22/2020 May Return to Work On:09/23/2020 Comments: The above patient may return back to work on the above date. Sincerely, [facility] [address] [place] [phone] [facility] SURGICAL PATH REPORTon 07-31 SURGICAL PATH REPORT [facility] Department of Pathology [address] [place] [phone] Name: FARTUN RODRÍGUEZ : 1985 Financial [id number] Number: Gender: Female Location: [facility] Admit 34 years Attending FERMÍN HURTADO Age: Provider: Ordering FERMÍN HURTADO Provider: Consulting: Surgical Pathology Report ACCESSION: COLLECTED DATE/TIME: RECEIVED DATE/TIME: PATHOLOGIST: [id number] 07/30/2020 13:19 EST 07/30/2020 13:19 EST SHADE MULLER MD Final Diagnosis Report for [employer] [place] [employer]: - CHORION[employer] VILLI. [...] cm. There are no grossly identifiable parts. [employer] sections are submitted in three cassettes. MP/ekaterina 07/30/2020 Tissue pathology report for: [facility], [address] [place] [address]; Print Date/ 07/31/2020 15:05 EST Number: Time: [facility] Department of Pathology [address] [place] [phone] Name: FARTUN RODRÍGUEZ : 1985 [facility] [id number] Number: Gender: Female Location: [facility] Admit 34 years Attending FERMÍN HURTADO Age: Provider: Ordering FERMÍN HURTADO Provider: Consulting: Surgical Pathology Report ACCESSION: COLLECTED DATE/TIME: RECEIVED DATE/TIME: PATHOLOGIST: [id number] 07/30/2020 13:19 EST 07/30/2020 13:19 EST YOHANA MESSER, SHADE Gross Description PATHOLOGY SERVICES PROVIDED BY [employer] (CLIA #[id number]) in cooperation with [facility] at [address] [place] [address] (CLIA #[id number]) Codes CPT CODE: 67313 Print Date/ 07/31/2020 15:05 EST Number: Time: Normal [facility] Comment on above: Performed By: #### [id number] #### [facility] [address] [place] [address] Ground Control Approach Technician: Shade Muller MD Consenton 05-29-2020 Consent [id number]:127 [facility] Registrationon 05-29-2020 Registration [id number]:127 [facility] Influenza A,Bon 11-08-2018 Influenza A, Rapid Ag Negative Normal Negative [facility] Comment on above: Performed By: #### 5 [id number] #### [facility] [address] [place] [address] Influenza B, Rapid Ag Negative Normal Negative [facility] Comment on above: Performed By: #### 5 [id number] #### [facility] [address] [place] [address] Urinalysis with Reflex Cultu reon 11-08-2018 Appearance Nom (U) Clear Normal Clear [facility] Comment on above: Performed By: #### U ARFX #### [facility] [address] [place] [address] Ascorbic Acid Negative Normal Negative [facility] Comment on above: Performed By: #### U ARFX #### [facility] [address] [place] [address] Automated Urine Microscopy Not indicated Normal [facility] Comment on above: Performed By: #### U ARFX #### [facility] [address] [place] [address] Bilirubin mass conc Negative Normal Negative [facility] Comment on above: Performed By: #### U ARFX #### [facility] [address] [place] [address] Blood Negative Normal Negative [facility] Comment on above: Performed By: #### U ARFX #### [facility] [address] [place] [address] Color Nom (U) Yellow Normal [facility] Comment on above: Performed By: #### U ARFX #### [facility] [address] [place] [address] Glucose mass conc 50 mg/dL Abnormal Negative [facility] Comment on above: Performed By: #### U ARFX #### [facility] [address] [place] [address] Ketones Ql (U) Negative Normal Negative [facility] Comment on above: Performed By: #### U ARFX #### [facility] [address] [place] [address] Leukocytes Esterase Negative Normal Negative [facility] Comment on above: Performed By: #### U ARFX #### [facility] [address] [place] [address] Nitrite Ql (U) Negative Normal Negative [facility] Comment on above: Performed By: #### U ARFX #### [facility] [address] [place] [address] pH (Bld) 5.0 Normal 5.0-9.0 [facility] Comment on above: Performed By: #### U ARFX #### [facility] [address] [place] [address] Protein mass conc (U) Negative Normal Negative [facility] Comment on above: Performed By: #### U ARFX #### [facility] [address] [place] [address] Specific gravity Relative Density (U) 1.026 Normal 1.003-1.03 5 [facility] Comment on above: Performed By: #### U ARFX #### [facility] [address] [place] [address] Urobilinogen Qn (U) <2.0 Normal Negative [facility] Comment on above: Result Comment: [...] #### U ARFX #### [facility] [address] [place] [address] STREP GROUP A AG QUALon 08-29 STREP GROUP A AG QUAL STREP GROUP A AG Q UAL GROUP A STREP NEGATIVE FOR STREPTOCOCCUS GROUP A ANTIGEN THROAT CULTURE: REFERRED TO [facility] FOR CULTURE CONFIRMATION CULTURE RESULT: CULTURE NEGATIVE FOR BETA STREP GROUP A Normal [facility] Comment on above: Performed By: #### M STREPA ####[facility] [id number] [place] [address] ED Provider Reporton 018 ED Provider Report [facility] [place], [place] [address]Patient Name: FARTUN RODRÍGUEZ : [birth year]Acct #: [id number] Unit #: [id number] ER Arrival Date: 09/21/17 ER Physician: Yoshi [...] illicit drug usePast Social HistorySmoking Status:FORMER SMOKERTobacco UseCIGARETTESPacks/Saa7Dvig :LESS THAN 1 YEAR AGOReview of SystemsReview [...] Resp B/P B/P Pulse O2 O2 Flow QvI0Rkvg Ox Delivery Rate09/21 1712 36.5 83 18 [...] to follow-up with PCP.Disposition DecisionDischargeDispositio n Date09/21/17Decision [id number] obiologyDate/Time Procedure - StatusSource Xnwmxo48/25 1745 Group A Streptococcus Screen (BETHANY) - [...] Cali Gregory P. DO 09/22/17 1146 Normal [facility] Vital Signs Date Time Vital Sign Value Performing Clinician Facility 11-26-2024 14:56-0400 Body mass index (BMI) [Ratio] 30.9 kg/m2 [employer] Work Phone: [facility] 11-26-2024 14:56-0400 Body weight 81.65 kg [employer] Work Phone: [facility] 11-26-2024 14:56-0400 Diastolic blood pressure 62 mm[Hg] FermínCanara Work Phone: [facility] 11-26-2024 14:56-0400 Systolic blood pressure 112 mm[Hg] Fermín Bryant DO Work Phone: [facility] 11-12-2024 10:00-0400 Body mass index (BMI) [Ratio] 30.18 kg/m2 Fermín Bryant DO Work Phone: [facility] 11-12-2024 10:00-0400 Body weight 79.74 kg Fermín Bryant DO Work Phone: [facility] 11-12-2024 10:00-0400 Diastolic blood pressure 72 mm[Hg] Fermín Bryant DO Work Phone: [facility] 11-12-2024 10:00-0400 Systolic blood pressure 100 mm[Hg] Fermín Bryant DO Work Phone: [facility] 10-29-2024 10:05-0500 Body mass index (BMI) [Ratio] 31.21 kg/m2 Fermín Bryant DO Work Phone: [facility] 10-29-2024 10:05-0500 Body weight 82.46 kg Fermín Bryant DO Work Phone: [facility] 10-29-2024 10:05-0500 Diastolic blood pressure 64 mm[Hg] Fermín Bryant DO Work Phone: [facility] 10-29-2024 10:05-0500 Systolic blood pressure 100 mm[Hg] Fermín Bryant DO Work Phone: [facility] 10-03-2024 11:32-0500 Body mass index (BMI) [Ratio] 30.04 kg/m2 Fermín Bryant DO Work Phone: [facility] 10-03-2024 11:32-0500 Body weight 79.38 kg Fermín Bryant DO Work Phone: [facility] 10-03-2024 11:32-0500 Diastolic blood pressure 68 mm[Hg] Fermín Bryant DO Work Phone: [facility] 10-03-2024 11:32-0500 Systolic blood pressure 120 mm[Hg] Fermín Bryant DO Work Phone: [facility] 09-06-2024 10:13-0500 Body weight 77.11 kg Ermelinda Nichols MD Work Phone: [facility] 09-04-2024 15:21-0500 Body mass index (BMI) [Ratio] 28.8 kg/m2 Fermín Bryant DO Work Phone: [facility] 09-04-2024 15:21-0500 Body weight 76.11 kg Fermín Bryant DO Work Phone: [facility] 09-04-2024 15:21-0500 Diastolic blood pressure 64 mm[Hg] Fermín Bryant DO Work Phone: [facility] 09-04-2024 15:21-0500 Systolic blood pressure 100 mm[Hg] Fermín Bryant DO Work Phone: [facility] 07-31-2024 14:58-0500 Body mass index (BMI) [Ratio] 27.7 kg/m2 Fermín Bryant DO Work Phone: [facility] 07-31-2024 14:58-0500 Body weight 73.21 kg Fermín Bryant DO Work Phone: [facility] 07-31-2024 14:58-0500 Diastolic blood pressure 62 mm[Hg] Fermín Bryant DO Work Phone: [facility] 07-31-2024 14:58-0500 Systolic blood pressure 100 mm[Hg] Fermín Bryant DO Work Phone: [facility] 07-04-2024 15:55-0500 Body mass index (BMI) [Ratio] 27.48 kg/m2 [facility] Nurse [facility] 07-04-2024 15:55-0500 Body weight 72.63 kg [facility] Nurse [facility] 07-04-2024 15:55-0500 Diastolic blood pressure 60 mm[Hg] [facility] Nurse [facility] 07-04-2024 15:55-0500 Systolic blood pressure 110 mm[Hg] [facility] Nurse [facility] 05-31-2023 09:00-0400 Body height 162.56 cm Everett Oliveros Other [employer] Other 05-31-2023 09:00-0400 Body mass index (BMI) [Ratio] 24.54 kg/m2 Everett Oliveros Other [employer] Other 05-31-2023 09:00-0400 Body weight 64.86 kg Everett Oliveros Other [employer] Other 05-31-2023 09:00-0400 Diastolic blood pressure 65 mm[Hg] Everett Oliveros Other [employer] Other 05-31-2023 09:00-0400 Systolic blood pressure 98 mm[Hg] Everett Oliveros Other [employer] Other 11-08-2022 16:15-0400 Body height 162.56 cm Everett Oliveros Other [employer] Other 11-08-2022 16:15-0400 Body mass index (BMI) [Ratio] 25.4 kg/m2 Everett Oliveros Other [employer] Other 11-08-2022 16:15-0400 Body temperature 97.4 [degF] Everett Oliveros Other [employer] Other 11-08-2022 16:15-0400 Body weight 67.13 kg Everett Oliveros Other [employer] Other 11-08-2022 16:15-0400 Diastolic blood pressure 74 mm[Hg] Everett Oliveros Other [employer] Other 11-08-2022 16:15-0400 SaO2% (BldA) [Mass fraction] 99 % Everett Oliveros Other [employer] Other 11-08-2022 16:15-0400 Systolic blood pressure 120 mm[Hg] Everett Oliveros Other [employer] Other 06-12-2022 12:15-0400 Body height 162.56 cm Yolis James Other [employer] Other 06-12-2022 12:15-0400 Body mass index (BMI) [Ratio] 25.74 kg/m2 Yolis James Other [employer] Other 06-12-2022 12:15-0400 Body temperature 98.1 [degF] Yolis James Other [employer] Other 06-12-2022 12:15-0400 Body weight 68.04 kg Yolis James Other [employer] Other 06-12-2022 12:15-0400 Diastolic blood pressure 61 mm[Hg] Yolis James Other [employer] Other 06-12-2022 12:15-0400 Respiratory rate 18 /min Yolis James Other [employer] Other 06-12-2022 12:15-0400 SaO2% (BldA) [Mass fraction] 100 % Yolis James Other [employer] Other 06-12-2022 12:15-0400 Systolic blood pressure 108 mm[Hg] Yolis James Other [employer] Other Encounters Encounter Date Encounter Type Care Provider Facility Start: 12-04-2024 End: 12-04-2024 Clinisync Result Encounter Fermín Bryant DO Work Phone: [facility] Department Unsolicited Start: 12-04-2024 End: 12-04-2024 Clinisync Result Encounter Fermín Bryant DO Work [...] Unsolicited Start: 11-19-2024 End: 11-19-2024 ambulatory FERMÍN [facility] Start: 11-12-2024 End: 11-12-2024 flow sheet Fermín [...] Nichols MD Work Phone: [facility] Comment on above: History of bariatric surgery Start: 10-09-2024 End: 10-09-2024 Clinisync Result Encounter Fermín Bryant DO Work Phone: [facility] External Department Unsolicited Start: 10-09-2024 End: 10-09-2024 Clinisync Result Encounter Fermín Bryant DO Work Phone: [facility] External Department Unsolicited Start: 10-08-2024 End: 10-08-2024 ambulatory FERMÍN R[facility] Start: 10-03-2024 End: 10-03-2024 Bamboo flowsheet [...] Jazmine Black RN [facility] Comment on above: resulting from assisted reproductive technology, second trimester (Primary Dx); Low lying placenta nos or without hemorrhage, second trimester; Advanced maternal age in multigravida, second trimester Start: 09-06-2024 End: 09-06-2024 Office consultation new/estab patient 60 min Ermelinda Nichols MD Work Phone: [facility] Comment on above: resulting from assisted reproductive technology, second trimester (Primary Dx); 21 weeks gestation of ; History of bariatric surgery; Advanced maternal age, 1st , second trimester; Low lying placenta nos or without hemorrhage, second trimester Start: 09-06-2024 End: 09-06-2024 ambulatory FERMÍN R [facility] Start: 09-04-2024 End: 09-04-2024 flow sheet Fermín Bryant DO Work Phone: [facility] Comment on above: Second trimester pre gnancy; 21 weeks gestation of Start: 09-04-2024 End: 09-04-2024 ambulatory FERMÍN BRYANT Not Available Start: 09-04-2024 End: 09-04-2024 Bamboo flowsheet Fermín Bryant DO Work Phone: [facility] Start: 09-04-2024 End: 09-04-2024 Bamboo flowsheet Fermín Bryant DO Work Phone: [facility] Start: 08-09-2024 End: 08-09-2024 Chart abstracting Ermelinda Nichols MD Work Phone: [facility] Start: 08-08-2024 End: 08-11-2024 Clinisync Result [...] Unsolicited Start: 07-04-2024 End: 07-04-2024 ambulatory FERMÍN HURTADO Not Available Start: 07-04-2024 End: 07-04-2024 Office outpatient visit 5 minutes [facility] Bryant Nurse [facility] Comment on above: GA: 12w4d Start: 05-31-2023 End: 05-31-2023 ambulatory Everett Oliveros Other [employer] Other Start: 05-31-2023 Office outpatient vi sit 15 minutes Everett Oliveros [facility] Start: 01-17-2023 End: 01-25-[address] FERMÍN HURTADO . Facility:[facility] Start: 01-09-2023 End: 01-10-[address] FERMÍN HURTADO . Facility:[facility] Start: 11-26-2022 Letter encounter [facility]isa PACKER [facility] Start: 11-21-2022 End: 11-21-[address] FERMÍN HURTADO . Facility:[facility] Start: 11-21-2022 End: 11-22-[address] FERMÍN HURTADO . Facility:[facility] Start: 11-08-2022 End: 11-08-2022 ambulatory Everett Oliveros Other [employer] Other Start: 11-08-2022 Office outpatient vi sit 15 minutes Everett Oliveros [facility] Start: 10-11-2022 End: 10-12-[address] FERMÍN HURTADO . Facility:[facility] Start: 09-23-2022 End: 09-24-[address] FERMÍN HURTADO . Facility:[facility] Start: 09-04-2022 Letter encounter Luisa Ge APRN-[employer] H[employer] INSTRUCTOR Work Phone: [employer] Start: 07-12-2022 End: 07-12-[address] FERMÍN HURTADO . Facility:[facility] Start: 06-29-2022 End: 06-30-[address] FERMÍN HURTADO . Facility:[facility] Start: 06-12-2022 End: 06-12-2022 ambulatory Yolis James Other [employer] Other Start: 06-12-2022 Office outpatient ne w [...] REQUEST Facility: Start: 05-11-2020 ambulatory Swathi DANIEL Facility:[facility] Start: 11-07-2018 End: 11-08-2018 Emergency department patient visit NO FAMILY DOCTOR NO FAMILY DOCTOR Facility:[facility] [id number] Start: 09-21-2017 Emergency department patient visit No Family Physician Facility:[facility] Procedures Date Procedure Procedure Detail Performing Clinician Start: 12-04-2024 OB BPP W NON-STRESS Fermín Bryant DO Work Phone: Start: 11-27-2024 OB BPP W NON-STRESS Fermín Bryant DO [...] in Cervix by Cyto stain Luisa Ge APRN-LANDSCAPE H[employer]ICULTURE INSTRUCTOR Work Phone: Plan of Treatment Date Care Activity Detail Author Start: 2036 Shingles (RZV) Vacci ne (1 of 2) Shingles (RZV) Vaccine (1 of 2) [facility] Start: 07-31-2027 Screening for malign ant neoplasm of cervix Pap Smear [facility] Start: 09-09-2025 End: 09-09-2025 US MFM with or without consult US MFM with or without consult Imaging Routine resulting from assisted reproductive technology, second trimester Low lying placenta nos or without hemorrhage, second trimester Advanced maternal age in multigravida, second trimester Expected: 09/09/2025 (Approximate), Expires: 09/09/2025 [facility] Work Phone: Comment on above: Expected: 09/09/2025 (Approximate), Expires: 09/09/2025 Start: 09-06-2025 Tobacco Screening Tobacco Screening [facility] Start: 12-10-2024 End: 12-10-2024 Patient encounter procedure 12/10/2024 2:40 PM EDT Routine [facility] [address] [facility] [place] [phone] Fermín Hurtado, DO [address] [place], [place] [phone] [facility] Start: 11-26-2024 End: 11-26-2024 Patient encounter procedure 11/26/2024 9:10 AM EDT Routine [facility] [address] [facility] [place] [address] Fermín Hurtado, DO [address], [place] [id number] [facility] Start: 11-19-2024 Subsequent hospital visit by physician 11/19/2024 1:00 PM EDT Hospital Encounter [facility] - Ul[facility]ound [address] [place] [phone] [facility] Start: 11-12-2024 End: 11-12-2025 US [...] AM EDT Routine [facility] [address] [facility] [place] [phone] Fermín Hurtado, DO [address] [place] [address] [facility] Start: 10-29-2024 End: 10-29-2024 Patient encounter procedure [facility] Comment on above: Arrived Start: 10-08-2024 End: 10-08-2024 Patient encounter procedure 10/08/2024 2:15 PM EST Appointment [facility] - Ultrasound [address] [place] [phone] [facility] Start: 10-03-2024 End: 10-03-2025 CBC panel - Blood by Automated count CBC Lab Routine Diabetes mellitus screening Expected: 10/03/2024 (Approximate), Expires: 10/03/2025 [facility] Work Phone: Comment on above: Expected: 10/03/2024 (Approximate), Expires: 10/03/2025 Start: 10-03-2024 End: 10-03-2024 Patient encounter procedure 10/03/2024 11:10 AM EST Routine [facility] [address] [facility] [place] [phone] Fermín Hurtado, DO [address] [place] [address] Arrived [facility] Comment on above: Arrived Start: 10-03-2024 End: 10-03-2024 Patient encounter procedure 10/03/2024 8:50 AM EST Routine [facility] [address] [place] [address] Fermín Hurtado, [address] [place] [address] [facility] Start: 09-06-2024 End: 09-06-2024 Patient encounter procedure [facility] Imaging Start: 09-04-2024 End: 09-04-2024 Patient encounter procedure [facility] Comment on above: Arrived Start: 07-31-2024 End: 07-31-2024 Patient encounter procedure [facility] Comment on above: Arrived Start: 07-31-2024 End: 10-01-2024 Alpha fetoprotein, maternal Alpha fetoprotein, maternal Lab Routine Second trimester Well woman exam with routine gynecological exam Expected: 07/31/2024 (Approximate), Expires: 10/01/2024 [facility] Comment on above: Expected: 07/31/2024 (Approximate), Expires: 10/01/2024 Start: 07-31-2024 End: 07-31-2025 US for US OB ANATOMY SINGLE W US OB CERVICAL LENGTH Imaging Routine Screening, , for anatomic survey Expected: 07/31/2024 (Approximate), Expires: 07/31/2025 [facility] Comment on above: Expected: 07/31/2024 (Approximate), Expires: 07/31/2025 Start: 07-04-2024 End: 07-04-2025 ABO/Rh ABO/Rh Lab Routine Missed menses , unspecified gestational age Expected: 07/04/2024 (Approximate), Expires: 07/04/2025 [facility] Comment on above: Expected: 07/04/2024 (Approximate), Expires: 07/04/2025 Start: 07-04-2024 End: 07-04-2025 Blood type and Indirect antibody screen panel - Blood Type and screen Lab Routine Missed menses , unspecified gestational age Expected: 07/04/2024 (Approximate), Expires: 07/04/2025 [facility] Work Phone: Comment on above: Expected: 07/04/2024 (Approximate), Expires: 07/04/2025 Start: 07-04-2024 End: 07-04-2025 Drugs of abuse panel - Urine by Screen method Rapid drug screen, urine Lab Routine , unspecified gestational age Encounter for supervision of normal first in first trimester Expected: 07/04/2024 (Approximate), Expires: 07/04/2025 [facility] Comment on above: Expected: 07/04/2024 (Approximate), Expires: 07/04/2025 Start: 04-28-2024 Influenza vaccination Influenza Vacc ine [facility] Start: 06-26-2023 Tetanus vaccination Tetanus (T d or Tdap) [facility]oster [facility] Start: 07-08-2022 Screening for malign ant neoplasm of cervix Pap Smear [facility] Start: 05-28-2022 Influenza vaccination Influenza Vacc ine (#1) [facility] Start: 2007 Screening for malign ant neoplasm of cervix Pap Smear [facility] Start: 2005 DTaP,Tdap and Td Vaccines (1 - Tdap) DTaP,Tdap and Td Vaccines (1 - Tdap) [facility] Start: 2004 Adult BMI Screening Adult BMI Screen ing [facility] Start: 1998 Depression Screening Depression Scre ening [facility] Start: 1998 Tobacco Screening Tobacco Screening [facility] Start: 02-23-1987 COVID-19 Vaccine (#1) COVID-19 Vacci ne (#1) [facility] Start: 1986 Screening for malign ant neoplasm of breast Mammography shared decision making (35 through 39 years) [facility] Bacteria identified in Urine by Culture Urine culture Microbiology Routine Missed menses Ordered: 07/04/2024 [facility] Comment on above: Ordered: 07/04/2024 CBC W Auto Different ial panel - Blood CBC and differential Lab Routine Missed menses , unspecified gestational age Ordered: 07/04/2024 [facility] Comment on above: Ordered: 07/04/2024 CHLAMYDIA TRACHOMATI S (GENITO/STI) CHLAMYDIA TRACHOMATIS (GENITO/STI) Lab Routine Exposure to STD Ordered: 07/31/2024 [facility] Comment on above: Ordered: 07/31/2024 Cytology Cervical or vaginal smear or scraping study Pap Smear Pathology and Cytology Routine Well woman exam with routine gynecological exam Ordered: 07/31/2024 [facility] Comment on above: Ordered: 07/31/2024 Hemoglobin A1c/Hemoglobin.total in Blood Hemoglobin A1c Lab Routine Missed menses , unspecified gestational age Ordered: 07/04/2024 [facility] Comment on above: Ordered: 07/04/2024 Hepatitis B virus surface Ag [Presence] in Serum or Plasma by Immunoassay Hepatitis B surface antigen Lab Routine Missed menses , unspecified gestational age Ordered: 07/04/2024 [facility] Comment on above: Ordered: 07/04/2024 Hepatitis C virus Ab [Presence] in Serum or Plasma by Immunoassay Hepatitis C antibody Lab Routine Missed menses , unspecified gestational age Ordered: 07/04/2024 [facility] Comment on above: Ordered: 07/04/2024 HIV-1/HIV-2 antigen/antibody combination immunoassay HIV-1 and HIV-2 antibodies Lab Routine Missed menses , unspecified gestational age Ordered: 07/04/2024 [facility] Comment on above: Ordered: 07/04/2024 Human papilloma viru s DNA [Presence] in Unspecified specimen by Probe with amplification HPV DNA probe, amplified Microbiology Routine Well woman exam with routine gynecological exam Ordered: 07/31/2024 [facility] Comment on above: Ordered: 07/31/2024 Neisseria gonorrhoea e DNA [Presence] in Unspecified specimen by SANJU with probe detection Neisseria gonorrhea DNA probe, direct Lab Routine Exposure to STD Ordered: 07/31/2024 [facility] Comment on above: Ordered: 07/31/2024 Reagin Ab [Presence] in Serum by RPR RPR Lab Routine Missed menses , unspecified gestational age Ordered: 07/04/2024 [facility] Comment on above: Ordered: 07/04/2024 Rubella antibody, IgG Rubella an tibody, IgG Lab Routine Missed menses , unspecified gestational age Ordered: 07/04/2024 [facility] Comment on above: Ordered: 07/04/2024 SURESWAB(R) ADVANCED VAGINITIS PLUS, TMA SURESWAB(R) ADVANCED VAGINITIS PLUS, TMA Pathology and Cytology Routine Vaginal discharge Ordered: 07/31/2024 [facility] Work Phone: Comment on above: Ordered: 07/31/2024 Immunizations Immunization Date Immunization Notes Care Provider Ubaldo araujo 10-23-2013 tuberculin skin test ; purified protein derivative solution, intradermal Luisa Ross EXCELLENCE SPECIALIST-LANDSCAPE HORTICULTURE INSTRUCTOR Work Phone: [facility] 06-26-2013 tetanus toxoid, redu thalia diphtheria toxoid, and acellular pertussis vaccine, adsorbed Luisa Ge EXCELLENCE SPECIALIST-LANDSCAPE HORTICULTURE INSTRUCTOR Work Phone: [facility] 05-08-2013 human papilloma viru s vaccine, quadrivalent Luisa Ge EXCELLENCE SPECIALIST-LANDSCAPE HORTICULTURE INSTRUCTOR Work Phone: [facility] 01-10-2013 human papilloma viru s vaccine, quadrivalent Luisa Ge EXCELLENCE SPECIALIST-LANDSCAPE HORTICULTURE INSTRUCTOR Work Phone: [facility] 11-15-2012 human papilloma viru s vaccine, quadrivalent Luisa Ge EXCELLENCE SPECIALIST-LANDSCAPE HORTICULTURE INSTRUCTOR Work Phone: [facility] 10-16-2010 tetanus toxoid, redu thalia diphtheria toxoid, and acellular pertussis vaccine, adsorbed Luisa Ge EXCELLENCE SPECIALIST-LANDSCAPE HORTICULTURE INSTRUCTOR Work Phone: [facility] Payers Date Payer Category Payer Blue Cross Blue Shield [facility] [id number] 2023 Blue Cross [facility] Other [id number] 2023 Blue Cross Blue Shield [employer] [id number] [id number] 2013 Medicaid [id number] 1986 Unknown [id number] 2.16.840.1.584035.3.579.2. 355 1986 Unknown [id number] 2.16.840.1.685300.3.579.2. 732 1986 Unknown [id number] 2.16.840.1.358315.3.579.2. 593 1986 Unknown [id number] 2.16.840.1.287766.3.579.2. 593 1986 Unknown [id number] 2.16.840.1.226237.3.579.2. 593 1986 Unknown [id number] 2.16.840.1.659420.3.579.2. 593 1986 Unknown [id number] 2.16.840.1.945591.3.579.2. 593 1986 Unknown [id number] 2.16.840.1.363010.3.579.2. 593 1986 Unknown [id number] 2.16.840.1.425435.3.579.2. 593 1986 Unknown [id number] 2.16.840.1.119344.3.579.2. 593 1986 Unknown [id number] 2.16.840.1.482109.3.579.2. 593 1986 Unknown [id number] 2.16.840.1.183062.3.579.2. 593 1986 Unknown [id number] 2.16.840.1.374812.3.579.2. 593 1986 Unknown [id number] 2.16.840.1.855642.3.579.2. 593 1986 Unknown [id number] 2.16.840.1.728447.3.579.2. 593 1986 Unknown [id number] 2.16.840.1.566002.3.579.2. 1286 1986 Unknown [id number] 2.16.840.1.399357.3.579.2. 1286 1986 Unknown [id number] 2.16.840.1.975397.3.579.2. 1286 1986 Unknown [id number] 2.16.840.1.915818.3.579.2. 1286 1986 Unknown [id number] 2.16.840.1.742360.3.579.2. 1259 1986 Unknown [id number] 2.16.840.1.691443.3.579.2. 1259 1986 Unknown [id number] 2.16840.1.307494.3.579.2. 1259 1986 Unknown [id number] 2.16.840.1.036386.3.579.2. 1259 1986 Unknown [id number] 2.16.840.1.097790.3.579.2. 1259 1986 Unknown [id number] 2.16.840.1.777951.3.579.2. 1259 1986 Unknown [id number] 2.16840.1.502040.3.579.2. 1259 1959 Medicaid [id number] 1958 Medicaid [id number] 2.16.840.1.340765.19 Social History Date Type Detail Facility Start: 09-06-2024 Sex Assigned At [employer] Other Start: 10-17-2017 Tobacco smoking status ORIS Ex-smoker [facility] End: 03-28-2017 History of tobacco use Current smoker [facility] End: 03-28-2017 History of tobacco use Cigarette Smoker [facility] Start: 10-17-2017 End: 09-06-2024 Cigarettes smoked current (pack per day) - Reported 0.5 [facility] Start: 10-17-2017 End: 09-06-2024 Tobacco use and exposure Smokeless tobacco [facility]-user [facility] Start: 04-17-2020 Alcohol intake Current drinker of alcohol (finding) [facility] Start: 10-17-2017 Tobacco Comment Patient quit March [facility] Start: [facility] Tobacco smoking stat us ORIS Tobacco smoking consumption unknown [facility] Start: 04-20-2024 [facility] Start: 06-03-2023 Gender identity Identifies as female gender (finding) [facility] Start: 06-03-2023 Sexual orientation Heterosexual (finding) [facility] Start: 09-06-2024 Tobacco smoking status NHIS Never smoked tobacco [facility] Start: 09-06-2024 Alcoholic beverage intake Ex-drinker (finding) [facility] Within the past 12 months we worried whether our food would run out before we got money to buy more. Never True [facility] Start: 1986 Sex assigned at Not on file [facility] Start: 08-06-2024 Sex Female (finding) [facility] tem Goals Date Patient Goal Desired Activity /State Personal health goal Clinical Notes 06-12-2022 to 11-26-2024 Patricia Carter LICENSED FUNERAL DIRECTOR AND EMBALMER - 11/26/2024 2:30 PM Lamar Carter LICENSED FUNERAL DIRECTOR AND EMBALMER - 11/12/2024 10:00 AM Mykel Gentile LICENSED FUNERAL DIRECTOR AND EMBALMER - 10/29/2024 10:10 AM Kayleen Gentile LICENSED FUNERAL DIRECTOR AND EMBALMER - 10/03/2024 11:10 AM EST Note Date & Type Note Facility 11-26-2024 History of Present illness Narrative Reason for Appointment: Patient ID: Fartun Hall is a 39 y.o. female who presents for No chief complaint on file. Patient presents today for Return OB appointment. MEDICATIONS Current Outpatient Medications Medication Instructions aspirin 81 mg, Daily Continuous Glucose Fire Systems Inspector (Dexcom G6 receiver bulk system) device Use as instructed Continuous Glucose Transmitter [...] nursing note reviewed. Exam conducted with a access database developer present. Vitals: Estimated body mass index is [...] Fermín Hurtado DO documented in this encounter [facility] 11-12-2024 History of Present illness Narrative Reason for Appointment: Patient ID: Fartun Hall is a 39 y.o. female who presents for Routine Visit Patient presents today for Return OB appointment. MEDICATIONS Current Outpatient Medications Medication Instructions aspirin 81 mg, Daily Continuous Glucose Fire Systems Inspector (Dexcom G6 receiver bulk system) device Use as instructed Continuous Glucose Transmitter [...] nursing note reviewed. Exam conducted with a access database developer present. Vitals: Estimated body mass index is [...] Fermín Hurtado DO documented in this encounter [facility] 10-29-2024 History of Present illness Narrative Reason for Appointment: Patient ID: Fartun Hall is a 39 y.o. female who presents for Routine Visit Patient presents today for Return OB appointment. MEDICATIONS Current Outpatient Medications Medication Instructions aspirin 81 mg, Daily Continuous Glucose Fire Systems Inspector (Dexcom G6 receiver bulk system) device Use as instructed Continuous Glucose Sensor [...] nursing note reviewed. Exam conducted with a access database developer present. Vitals: Estimated body mass index is [...] noted bilaterally. Patient is currently still seeing [facility] for growth scan/NST/BPP. Patient to return [...] Fermín Hurtado DO documented in this encounter [facility] 10-03-2024 History of Present illness Narrative Reason [...] nursing note reviewed. Exam conducted with a access database developer present. Vitals: Estimated body mass index is [...] obtained supplies she will reach out to [employer] to have device placed on arm, patient was given blood sugar logs to bring to next appointment for review once device is placed. Documented by Trupti Gentile LPN on behalf of: Fermín Hurtado DO documented in this encounter [facility] 09-06-2024 History of Present illness Narrative Headache/epigastric [...] female Have you been seen here at [facility] in a previous ? No Recent ER visits or hospitalizations? No Bring blood sugar log or meter with you today? (Please bring them with you for every visit at [facility]) n/a Flu vaccine (Jun-October)? No Any [...] Allergies CURRENT MEDICATIONS: Current Outpatient Medications: ferrous [id number] C-folic acid (FOLTRIN) 110-0.5 mg capsule, Take 1 capsule by mouth every morning before breakfast., Disp: , Rfl: [id number] acid ( 19) 29 mg iron- 1 [...] TESTS AND ULTRASOUND REPORTS: Referral records and [facility] chart were reviewed Pertinent Ultrasound findings [...] those pregnancies occurring naturally (1.3% vs 0.7%). [facility] suggest that echocardiogram be offered to [...] aspirin vs 10.3% no aspirin, p=0.45) (PMBID: [id number]). Given well-established benefits baby aspirin for the prevention of preeclampsia, I recommend initiating baby aspirin even in the setting of history of Alberto-en-Y surgery. PPI prophylaxis is additionally recommended by bariatric surgeons, 20 mg daily ordered today in addition to aspirin 81 mg daily. Micronutrient Dosing Recommendations: Calcium: recommend 1000-1200mg daily; if deficient, recommend 1800-59433 mg PO daily in divided doses Vitamin [...] ultrasound, attempt completion in 4-6 weeks at [facility] Repeat growth ultrasound along with transvaginal ultrasound to re-evaluate placental location in 11 weeks at 32 weeks gestation, through [facility] Repeat growth ultrasound at 36-37 weeks [...] patient is in complete care of her professor of theatre. Patient does have ultrasound scheduled with us. Thank you for allowing me to participate in the care of Fartun Hall. If there any questions please do not hesitate to contact us. Ermelinda Nichols MD Maternal- Medicine [address] [place] [address] [facility], the CDC, and other organizations representing maternal and public health professionals recommend that , , and lactating people and those considering receive the COVID-19 vaccination. Vaccination is the best method to reduce maternal and complications of SARS-CoV-2 infection. This document was created with [employer] technology. Though I make every effort to review the dictation as it is transcribed, on occasion the spoken word can be misinterpreted by the technology leading to inappropriate words, phrases, or sentences. This note is addressed to the requesting provider as a consultation for clinical guidance. Specific medical abbreviations are occasionally used and those are generally approved by the [place]?Board of?Obstetrics and?Gynecology?as well as?Ruth ware abbreviations. The above plan of care was based solely on the diagnoses for which a consultation was requested. ?More frequent testing may be indicated based on her other medical/obstetrical conditions. The management of other or medical conditions is beyond the scope of requested consultation and will continue to be followed by the primary professor of theatre or primary care provider. Note to patient: The Cures Act makes medical notes like these [...] of the practitioner. documented in this encounter [facility] 09-04-2024 History of Present illness Narrative Reason [...] nursing note reviewed. Exam conducted with a access database developer present. Vitals: Estimated body mass index is [...] Delivery: 01/12/25. Pt having anatomy scan at [facility] on Monday. Pt has complaints of dry itchy ears. Drops called into pharmacy. Pt to return in 4 weeks for scheduled OB appt. Documented by Patricia Carter LPN on behalf of: Fermín Hurtado DO documented in this encounter [facility] 07-31-2024 History of Present illness Narrative Reason [...] nursing note reviewed. Exam conducted with a access database developer present. Vitals: Estimated body mass index is [...] Fermín Hurtado DO documented in this encounter [facility] 07-04-2024 History of Present illness Narrative Reason [...] or undercooked meat, and stay away from [facility]. Patient has also been advised to [...] Farr LPN documented in this encounter [facility] 05-31-2023 Evaluation note Encounter Date Diagnosis Assessment Notes May, Dandruff in adult (ICD-10 - L21.0) Trial of medicated shampoo. Call if no improvement. 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 Will add drop with steroid component. Discussed proper hearing protection - possibly ear muff style. Also discussed ENT referral if needed. [employer] Other 10-16-2022 Evaluation note* Encounter Date Diagnosis [...] inside ear after shower may use hair spinner on lowest cool setting to blow dry. Follow up with PCP or UC if no improvement in the next 2-3 days. Immediate eval for severe ear pain, severe headache, neck pain/stiffness, pain, erythema, or swelling behind the ear, fever, N/V, hearing loss, fever, or any other new or concerning symptoms. Patient verbalizes understanding and is agreeable to treatment plan [employer] Other Evaluation note* Diagnosis Missed menses , unspecified gestational age Encounter for supervision of normal first in first trimester [facility] Diagnosis 16 weeks gestation of Second trimester state, incidental Well woman exam with routine gynecological exam Routine gynecological examination Screening, , for anatomic survey Encounter for anatomic survey Exposure to STD Vaginal discharge Leukorrhea, not specified as infective Ear infection Unspecified otitis media documented in [facility]* Diagnosis Second trimester state, incidental 21 weeks gestation of documented in this encounter [facility]* Diagnosis resulting from assisted reproductive technology, second trimester- Primary 21 weeks gestation of History of bariatric surgery Bariatric surgery status Advanced maternal age, 1st , second trimester Low lying placenta nos or without hemorrhage, second trimester [facility] Diagnosis resulting from assisted reproductive technology, second trimester- Primary Low lying placenta nos or without hemorrhage, second trimester Advanced maternal age in multigravida, second trimester [facility] Diagnosis Diabetes mellitus screening Screening for diabetes mellitus 25 weeks gestation of Second trimester state, incidental History of bariatric surgery Bariatric surgery status resulting from in vitro fertilization, antepartum documented in [facility]* Diagnosis History of bariatric surgery Bariatric surgery status [facility]* Diagnosis Third trimester state, incidental [...] REPIAR 2017 Hospitalization History SEE SURGICAL HX [facility] [employer] Other InstructionsNot on filedocumented in this encounter [facility] System[facility]ructionsNot on filedocumented in this encounter [facility] SystemInstructionsNot on filedocumented in this encounter [facility] System Summary Purpose Family History No Family [...] section and content) DATE CREATED AUTHOR 02/19/2018 [facility] DATE CREATED AUTHOR AUTHOR'S ORGANIZ ATION 11/14/2018 [facility] DATE CREATED AUTHOR AUTHOR'S ORGANIZ ATION 09/17/2020 [facility] DATE CREATED AUTHOR AUTHOR'S ORGANIZ ATION 12/23/2020 Tariq Miles [facility] DATE CREATED AUTHOR AUTHOR'S ORGANIZ ATION 10/21/2021 [facility] DATE CREATED AUTHOR AUTHOR'S ORGANIZ ATION 02/03/2023 [facility] DATE CREATED AUTHOR AUTHOR'S ORGANIZ ATION 09/11/2024 [facility] DATE CREATED AUTHOR AUTHOR'S ORGANIZ ATION 11/20/2024 [facility] DATE CREATED AUTHOR AUTHOR'S ORGANIZ ATION 11/29/2024 [facility] dical Specialists EPIC REASON FOR VISIT (unrecogniz ed section and content) Reason Comments Amenorrhea Reason Comments Routine Visit Reason Comments ama Fertility Preservation Reason Comments Med Change Request Care Teams (unrecognized sec tion and content) Strategic Analyst Relationship Specialty Start Date End Date Luisa Ge APRN-LANDSCAPE HORTICULTURE INSTRUCTOR [address] [place] [phone] ANIMAL LABORATORY HELPER Pulmonary Medicine 06/02/20 Jamie Hardin MD [address] [place] [phone] Physician General Surgery 06/02/20 Page Faulkner M.Ed., R.D., L.D. [address] [address] Dietitian Nutrition 06/02/20 Rita Catherine MD [address] [place] [phone] Physician Obstetrics/Gynecology 06/02/20 Rishabh Hi, EXCELLENCE SPECIALIST-LANDSCAPE HORTICULTURE INSTRUCTOR [address] [place] [id number] ANIMAL LABORATORY HELPER Anesthesiology 06/02/20 Strategic Analyst Relationship Specialty Start Date End Date Luisa Ge APRN-CNP [address] [place] [phone] ANIMAL LABORATORY HELPER Pulmonary Medicine 06/02/20 Jamie Hardin MD [address] [place] [phone] Physician General Surgery 06/02/20 Page Faulkner M.Ed., R.Keyana., L.D. [address] [address] Dietitian Nutrition 06/02/20 Rita Catherine MD [address] [place] [phone] Physician Obstetrics/Gynecology 06/02/20 Rishabh Hi, EXCELLENCE SPECIALIST-LANDSCAPE HORTICULTURE INSTRUCTOR [address] [place] [address] ANIMAL LABORATORY HELPER Anesthesiology 06/02/20 Strategic Analyst Relationship Specialty Start Date End Date Everett Oliveros MD [address] [place] [address] PCP - General Family Medicine 03/29/23 Strategic Analyst Relationship Specialty Start Date End Date Everett Oliveros MD [address] [place] [address] PCP - General Family Medicine 03/29/23 Strategic Analyst Relationship Specialty Start Date End Date Everett Oliveros MD [address] [place] [address] PCP - General Family Medicine 03/29/23 Strategic Analyst Relationship Specialty Start Date End Date Everett Oliveros MD [address] [place] [address] PCP - General Family Medicine 03/29/23 Strategic Analyst Relationship Specialty Start Date End Date Everett Oliveros MD [address] [place] [place] [address] PCP - General Family Medicine 03/29/23 Strategic Analyst Relationship Specialty Start Date End Date Everett Oliveros MD [address] [facility] [place] [address] PCP - General Family Medicine 03/29/23 Strategic Analyst Relationship Specialty Start Date End Date Everett Oliveros MD [address] [place] [facility] [place] [address] PCP - General Family Medicine 03/29/23 Strategic Analyst Relationship Specialty Start Date End Date Everett Oliveros MD [address] [place] [facility] [place] [address] PCP - General Family Medicine 03/29/23 Strategic Analyst Relationship Specialty Start Date End Date Everett Oliveros MD [address] [place] [facility] [place] [address] PCP - General Family Medicine 03/29/23 Strategic Analyst Relationship Specialty Start Date End Date Everett Oliveros MD [address] [place] [place] [address] PCP - General Family Medicine 03/29/23 Strategic Analyst Relationship Specialty Start Date End Date Everett Oliveros MD [address] [place] [facility] [place] [address] PCP - General Family Medicine 03/29/23 Strategic Analyst Relationship Specialty Start Date End Date Everett Oliveros MD [address] [place] [facility] [id number] PCP - [facility] Medicine 03/29/23 Strategic Analyst Relationship Specialty Start Date End Date Everett Oliveros MD [address] [place] [facility] [phone] PCP - [facility] 03/29/23 Strategic Analyst Relationship Specialty Start Date End Date Everett Oliveros MD [address] [place] [facility] [address] PCP - [facility] 03/29/23 FOR RECORDS PERTAINING TO PATIENTS WHO [...] BE BASED ON THE PRIMARY CLINICAL RECORDS. [employer] [facility]. provides no warranty or guarantee of the accuracy or completeness of information in this document.
[2024-12-07 10:59] VITALS: TEMP 36.3
[2024-12-07 11:00] VITALS: BP 110/56; PULSE 64
== END 2024-12-07 11:50 | disposition home or self-care (01) ==
LOC: FBCO 10:53 → FBC 10:55
PROVIDERS: PCP Family Medicine; Visit Provider Obstetrics & Gynecology
DX: O26.893 Other specified pregnancy related conditions, third trimester (principal); Z3A.35 35 weeks gestation of pregnancy
CPT/HCPCS: 59025

== ENCOUNTER 2024-12-11 10:51 | Outpatient (OUT) | payer BC, SELFPAY ==
--- NOTE | 2024-12-11 | US_ITS ---
The [address] [address] Patient Name: FARTUN HALL MRN: [id number] date: 1985 Sex: F Assigned Patient Location: Current Patient Location: US Accession/Order Number: [id number] Exam Date: 12/11/2024 11:27 Report Date: 12/11/2024 11:29 At the request of: ANA PAULA JOHN DO Procedure: US OB BPP w non-stress BIOPHYSICAL PROFILE: CLINICAL INFORMATION: History of bariatric surgery Z 98.84 COMPARISON: 12/04/2024 There is a single live intrauterine gestation in cephalic presentation. The reported gestational age is 35 weeks 4 days. The heart rate [id number] beats per minute. FINDINGS: TONE: 1 or more episodes of activity extension and flexion of extremity or opening and closing of the hand [Y] 2/2 GROSS BODY MOVEMENTS: 3 or more discrete body or limb movements [Y] 2/2 BREATHING MOVEMENTS: 1 or more episodes of breathing lasting at least 30 seconds [Y] 2/2 CYNTHIA: A single deepest vertical pocket of amniotic fluid greater than 2 cm [Y] 2/2 CYNTHIA: 12.0 cm. This is in low-normal range. Total score: 8/8 US/ OB BPP w non-stress IMPRESSION: NORMAL BIOPHYSICAL PROFILE. Impression dictated by: Patricia Gomez M.D.12/11/2024 11:29 AM Dictation Location: [place] [address] Electronically authenticated by: [id number] Date: 12/11/2024 11:29
[2024-12-11 11:16] VITALS: BP 116/64; PULSE 63
== END 2024-12-11 11:56 | disposition home or self-care (01) ==
LOC: US 10:51 → FBC 10:54
PROVIDERS: PCP Family Medicine; Visit Provider Obstetrics & Gynecology
DX: O99.843 Bariatric surgery status complicating pregnancy, third trimester (principal); O09.513 Supervision of elderly primigravida, third trimester; Z3A.35 35 weeks gestation of pregnancy
CPT/HCPCS: 76818

== ENCOUNTER 2024-12-14 10:56 | Outpatient (OUT) | payer BC, SELFPAY ==
--- OUTSIDE RECORDS SUMMARY | 2024-12-14 10:58 | XMS_ITS | CCD ---
Author Organization [facility] Care Team Providers Care Site Supervising Technical Operator Name Role Phone No Family Physician [...] ble BRYANT ., DR GOSS Attending Unavailable VERNON HILLS, DR YANIRA Steele Consulting Unavailable BRYANT ., [...] DR GOSS Consulting Unavailable Arlin MESSER, Everett [facility] Care Provider [phone] Unavailable Primary Care Provider Unavailabl e BRYANT, FERMÍN R Referring Unavailable ERMELINDA NICHOLS Attending Unavailable BRYANT, FERMÍN Carrera Referring Unavailable BRYANT, FERMÍN R. Referring Unavailable BRYANT, FERMÍN R. Referring Unavailable Everett Oliveros MD Primary Care Provider [phone] BRYANT, FERMÍN Attending Unavailable BRYANT, FERMÍN Attending Unavailable BRYANT, FERMÍN Attending Unavailable BRYANT, FERMÍN Attending Unavailable BRYANT, FERMÍN Attending Unavailable BRYANT, FERMÍN Attending Unavailable BRYANT, FERMÍN Attending Unavailable Allergies Allergy Classification Reported Allergen(s) Allergy Type Date of Onset Reaction(s) Facility (3 sources) SEASONAL IC; Translations: [SEASONAL IC] Propensity to adverse reactions to drug (disorder) 9 [facility] Medications Current Medications Medication Drug [...] by mouth once daily before breakfast ferrous wjdwymqj-q65-wlctap c C-folic acid (FOLTRIN) 110-0.5 mg capsule Take 1 capsule by mouth every morning before breakfast. Active aspirin 81 mg delayed release oral tablet (20 sources) Platelet Aggregation Inhibitor, Nonsteroidal Anti-inflammatory Drug [...] 1 Package 11 06/18/2019 Active Continuous Glucose Unattended Ground Sensor Specialist (Dexcom G6 sulfonator operator) device (15 sources) Start: 10-09-2024 Continuous Glucose Unattended Ground Sensor Specialist (Dexcom G6 sulfonator operator) device Indications: Diabetes mellitus screening , History of bariatric surgery Use as instructed 1 each 10/09/2024 Active Continuous Glucose Unattended Ground Sensor Specialist (FreeStyle Emmy 3 Franklin) device (3 sources) Start: 10-03-2024 End: 10-17-2024 Continuous Glucose Unattended Ground Sensor Specialist (FreeStyle Emmy 3 Franklin) device Indications: Diabetes mellitus screening , History [...] Continuous Glucose Transmitter (Dexcom G6 transmitter) misc (14 sources) Start: 10-11-2024 Continuous Glucose Transmitter (Dexcom [...] / neomycin 3.5 mg/ml / polymyxin b 06557 unt/ml otic solution (1 source) Aminoglycoside Antibacterial, [...] omeprazole 20 mg delayed release oral capsule (20 sources) Proton Pump Inhibitor Start: 10-28-2024 take [...] Take 1 each by mouth Daily Active dy298-yydc-huurd acid ( 19) 29 mg iron- 1 mg tablet,chewable (3 sources) qm256-xqln-cjeco acid ( 19) 29 mg iron- 1 [...] adiposity] Chronic Other and delivery including normal (19 sources) Encounter for test, result positive; Translations: [] Onset: 01-17-2023 Episodic Other screening for suspected conditions (not mental disorders or infectious disease) (9 sources) Encounter for screening for malignant neoplasm of cervix; Translations: [Patient encounter status] Onset: 03-27-2023 Episodic Other upper respiratory disease (2 sources) [...] [33 weeks gestation of ] 11-26-2024 Episodic Residual codes; unclassified (2 sources) Gestation period, 35 weeks; Translations: [35 weeks gestation of ] 12-10-2024 Episodic Unclassified (1 source) Unknown / UNK(Unknown) Onset: 09-21-2017 Unclassified (3 sources) Diarrhea, unspecified; Translations: [Diarrhea, unspecified] Onset: 11-07-2018 Unclassified (20 sources) OB Reminders Onset: 08-08-2024 08-08-2024 Unclassified [...] Facility US OB BPP W NON-STRESS on 12-11-[address] [address] Ultrasound Report Signed Patient: FARTUN HALL MR#: [id number] : 1985 Acct:[id number] Age/Sex: 39 / F ADM Date: 12/11/24 Loc: [facility] 250-[address]: Fermín Hurtado D.O. Ordering Physician: Fermín Hurtado D.O. Date of Service: 12/11/24 Procedure(s): US OB BPP w non-stress Accession Number(s): [id number] cc: Everett Oliveros M.D.; Fermín Hurtado D.O. [place] [address] Patient Name: FARTUN HALL MRN: [facility]:[id number] date: 1985 Sex: F Assigned Patient Location: Current Patient Location: US Accession/Order Number: [id number] Exam Date: 12/11/2024 11:27 Report Date: 12/11/2024 11:29 At the request of: FERMÍN HURTADO DO Procedure: US OB BPP w non-stress BIOPHYSICAL PROFILE: CLINICAL INFORMATION: History of bariatric surgery Z 98.84 COMPARISON: 12/04/2024 There is a single live intrauterine gestation in cephalic presentation. The reported gestational age is 35 weeks 4 days. The heart rate [id number] beats per minute. FINDINGS: TONE: 1 or [...] greater than 2 cm [Y] 2/2 CYNTHIA: 12.0 cm. This is in low-normal range. Total score: 8/8 US/US OB BPP w non-stress IMPRESSION: NORMAL BIOPHYSICAL PROFILE. Impression dictated by: Patricia Gomez M.D.12/11/2024 11:29 AM Dictation Location: [place] [address] Electronically authenticated by: [id number] Y Date: 12/11/2024 11:29 Dictated By: Patricia Gomez M.D. Signed By: 12/11/24 1131 DD/ 1129 TD/TT: Marketing Senior Recruiter: [facility] Radiology, Radiologeloina shultz MD - 12/11/2024 [place] [address] Ultrasound Report Signed Patient: FARTUN HALL MR#: [id number] : 1985 Acct:[id number] Age/Sex: 39 / F ADM Date: 12/11/24 Loc: [facility] 250-[address]: Fermín Hurtado D.O. Ordering Physician: Fermín Hurtado D.O. Date of Service: 12/11/24 Procedure(s): US OB BPP w non-stress Accession Number(s): [id number] cc: Everett Oliveros M.D.; Fermín Hurtado D.O. The [place] [address] Patient Name: FARTUN HALL MRN: [facility]:[id number] date: 1985 Sex: F Assigned Patient Location: Current Patient Location: US Accession/Order Number: [id number] Exam Date: 12/11/2024 11:27 Report Date: 12/11/2024 11:29 At the request of: FERMÍN HURTADO DO Procedure: US OB BPP w non-stress BIOPHYSICAL PROFILE: CLINICAL INFORMATION: History of bariatric surgery Z 98.84 COMPARISON: 12/04/2024 There is a single live intrauterine gestation in cephalic presentation. The reported gestational age is 35 weeks 4 days. The heart rate [id number] beats per minute. FINDINGS: TONE: 1 or [...] greater than 2 cm [Y] 2/2 CYNTHIA: 12.0 cm. This is in low-normal range. Total score: 8/8 US/US OB BPP w non-stress IMPRESSION: NORMAL BIOPHYSICAL PROFILE. Impression dictated by: Patricia Gomez M.D.12/11/2024 11:29 AM Dictation Location: [place] [address] Electronically authenticated by: [id number] Y Date: 12/11/2024 11:29 Dictated By: Patricia Gomez M.D. Signed By: 12/11/24 1131 DD/ 1129 TD/TT: Marketing Senior Recruiter: [facility] Radiology Study observation (narrative) [facility] US OB BPP W NON-STRESS Ordered By: Radiologist Radiology on 12-11-2024 [facility] Work Phone: Urinalysis macro (dipstick) panel (U)on 12-10-2024 Bilirubin, UA Negative Negative - 4(70) +++ mg/dL [facility] Blood, UA Negative Negative - 50 Nnamdi/mcL [facility] Clarity, UA Clear [facility] Color, UA Yellow [facility] Glucose, UA Negative Negative - 1999(110) ++++ mg/dL [facility] Interpretation and review of laboratory results Normal [facility] Ketones, UA Negative Negative - 160(16) ++++ mg/dL [facility] Leukocytes, UA Negative Negative - 500+++ Dilcia/mcL [facility] Nitrite, UA Negative Negative - Positive [facility] pH, UA 5.5 5 - 9 [facility] Protein, UA Negative Negative - 2000(20) ++++ mg/dL [facility] Spec Grav, UA 1.03 1 - 1.03 [facility] Urobilinogen, UA 1.0 0.2 - 12 mg/dL [facility] US OB BPP W NON-STRESS on 12-04-2024 The [facility] [address] [place] [address] Ultrasound Report Signed Patient: FARTUN HALL MR#: [id number] : 1985 Acct:[id number] Age/Sex: 39 / F ADM Date: 12/04/24 Loc: [facility] 252-[address]: Fermín Hurtado D.O. Ordering Physician: Fermín Hurtado D.O. Date of Service: 12/04/24 Procedure(s): US OB BPP w non-stress Accession Number(s): [id number] cc: Everett Oliveros M.D.; Fermín Hurtado D.O. The [address] [address] Patient Name: FARTUN HALL MRN: [facility]:[id number] date: 1985 Sex: F Assigned Patient Location: [facility] Current Patient Location: [facility] Accession/Order Number: [id number] Exam Date: 12/04/2024 11:35 Report Date: 12/04/2024 11:36 At the request of: FERMÍN HURTADO DO Procedure: US OB BPP w non-stress Biophysical profile. Reason for exam: Advanced maternal age. History of bariatric surgery. COMPARISON: 11/27/2024 TECHNIQUE: Transabdominal imaging of the gravid uterus was obtained. FINDINGS: Technical Publications Manager reports a BPP of 8 out of 8. CYNTHIA is normal at 14cm. heart rate 153bpm. US/US OB BPP w non-stress IMPRESSION: BPP 8 out of 8. Impression dictated by: Corey Fregoso Jr., D.O.12/04/2024 11:36 AM Dictation Location: [place] [address] Electronically authenticated by: [id number] Y Date: 12/04/2024 11:36 Dictated By: Corey Fregoso M.D. Signed By: 12/04/24 1139 DD/ 1136 TD/TT: Marketing Senior Recruiter: [facility] Radiology Radiologeloina shultz MD - 12/04/2024 The [place] [id number] Ultrasound Report Signed Patient: FARTUN HALL MR#: [id number] : 1985 Acct:[id number] Age/Sex: 39 / F ADM Date: 12/04/24 Loc: [facility] 252-[address]: Fermín Hurtado D.O. Ordering Physician: Fermín Hurtado D.O. Date of Service: 12/04/24 Procedure(s): US OB BPP w non-stress Accession Number(s): [id number] cc: Everett Oliveros M.D.; Fermín Hurtado D.O. [address] [address] Patient Name: FARTUN HALL MRN: [facility]:[id number] date: 1985 Sex: F Assigned Patient Location: [facility] Current Patient Location: [facility] Accession/Order Number: [id number] Exam Date: 12/04/2024 11:35 Report Date: 12/04/2024 11:36 At the request of: FERMÍN HURTADO DO Procedure: US OB BPP w non-stress Biophysical profile. Reason for exam: Advanced maternal age. History of bariatric surgery. COMPARISON: 11/27/2024 TECHNIQUE: Transabdominal imaging of the gravid uterus was obtained. FINDINGS: Technical Publications Manager reports a BPP of 8 out of 8. CYNTHIA is normal at 14cm. heart rate 153bpm. US/US OB BPP w non-stress IMPRESSION: BPP 8 out of 8. Impression dictated by: Corey Fregoso Jr., D.O.12/04/2024 11:36 AM Dictation Location: [place] [address] Electronically authenticated by: [id number] Y Date: 12/04/2024 11:36 Dictated By: Corey Fregoso M.D. Signed By: 12/04/24 1139 DD/ 1136 TD/TT: Marketing Senior Recruiter: [facility] Radiology Study observation (narrative) [facility] US OB BPP W NON-STRESS Ordered By: Radiologist Radiology on 12-04-2024 [facility] Work Phone: US OB BPP W NON-STRESS on 11-27-[address] [address] Ultrasound Report Signed Patient: FARTUN HALL MR#: [id number] : 1985 Acct:[id number] Age/Sex: 39 / F ADM Date: 11/27/24 Loc: [facility] 250-[address]: Fermín Hurtado D.O. Ordering Physician: Fermín Hurtado D.O. Date of Service: 11/27/24 Procedure(s): US OB BPP w non-stress Accession Number(s): [id number] cc: Everett Oliveros M.D.; Fermín Hurtado D.O. [place] [id number] Patient Name: FARTUN HALL MRN: [facility]:[id number] date: 1985 Sex: F Assigned Patient Location: Current Patient Location: US Accession/Order Number: [id number] Exam Date: 11/27/2024 11:57 Report Date: 11/27/2024 11:59 At the request of: FERMÍN HURTADO DO Procedure: US OB BPP w non-stress BIOPHYSICAL PROFILE: CLINICAL INFORMATION: History of bariatric surgery Z98.84 COMPARISON: 11/20/2024 There is a single live intrauterine gestation in breech presentation. The reported gestational age is 33 weeks 4 days. The heart rate cgexcpio003 beats per minute. FINDINGS: TONE: 1 or [...] Patricia Gomez M.D.11/27/2024 11:59 AM Dictation Location: [place] [address] Electronically authenticated by: [id number] Y Date: 11/27/2024 11:59 Dictated By: Patricia Gomez M.D. Signed By: 11/27/24 1202 DD/ 1159 TD/TT: Marketing Senior Recruiter: Radiology, Radiologi MD Gio shultz 11/27/2024 [place] [address] Ultrasound Report Signed Patient: FARTUN HALL MR#: [id number] : 1985 Acct:[id number] Age/Sex: 39 / F ADM Date: 11/27/24 Loc: [facility] 250-[address]: Fermín Hurtado D.O. Ordering Physician: Fermín Hurtado D.O. Date of Service: 11/27/24 Procedure(s): US OB BPP w non-stress Accession Number(s): [id number] cc: Everett Oliveros M.D.; Fermín Hurtado D.O. The [place] [id number] Patient Name: FARTUN HALL MRN: [facility]:[id number] date: 1985 Sex: F Assigned Patient Location: Current Patient Location: US Accession/Order Number: [id number] Exam Date: 11/27/2024 11:57 Report Date: 11/27/2024 11:59 At the request of: FERMÍN HURTADO DO Procedure: US OB BPP w non-stress BIOPHYSICAL PROFILE: CLINICAL INFORMATION: History of bariatric surgery Z98.84 COMPARISON: 11/20/2024 There is a single live intrauterine gestation in breech presentation. The reported gestational age is 33 weeks 4 days. The heart rate [id number] beats per minute. FINDINGS: TONE: 1 or [...] Patricia Gomez M.D.11/27/2024 11:59 AM Dictation Location: [place] [address] Electronically authenticated by: [id number] Y Date: 11/27/2024 11:59 Dictated By: Patricia Gomez M.D. Signed By: 11/27/24 1205 DD/ 1159 TD/TT: Marketing Senior Recruiter: [facility] Radiology Study observation (narrative) [facility] US OB BPP W NON-STRESS Ordered By: Radiologist Radiology on 11-27-2024 [facility] Work Phone: Urinalysis macro (dipstick) panel (U)on 11-26-2024 Bilirubin, UA Negative Negative - 4(70) +++ mg/dL [facility] Blood, UA Negative Negative - 50 Nnamdi/mcL [facility] Clarity, UA Clear [facility] Color, UA Yellow [facility] Glucose, UA Negative Negative - 2000(110) ++++ mg/dL [facility] Interpretation and review of laboratory results Abnormal [facility] Ketones, UA Positive Negative - 160(16) ++++ mg/dL [facility] Comment on above: trace Leukocytes, UA Negative Negative - 500+++ Dilcia/mcL [facility] Nitrite, UA Negative Negative - Positive [facility] pH, UA 6.5 5 - 9 [facility] Protein, UA Trace Negative - 2000(20) ++++ mg/dL [facility] Spec Grav, UA 1.025 1 - 1.03 [facility] Urobilinogen, UA 2.0 0.2 - 12 mg/dL [facility] US OB BPP W NON-STRESS on 11-20-2024 [place] [address] Ultrasound Report Signed Patient: FARTUN HALL MR#: [id number] : 1985 Acct:[id number] Age/Sex: 39 / F ADM Date: 11/20/24 Loc: US Attending Dr: Fermín Hurtado D.O. Ordering Physician: Fermín Hurtado D.O. Date of Service: 11/20/24 Procedure(s): US OB BPP w non-stress Accession Number(s): [id number] cc: Everett Oliveros M.D.; Fermín Hurtado D.O. The [address] [address] Patient Name: FARTUN HALL MRN: [facility]:[id number] date: 1985 Sex: F Assigned Patient Location: [facility] Current Patient Location: Accession/Order Number: [id number] Exam Date: 11/20/2024 15:25 Report Date: 11/20/2024 15:26 At the request of: FERMÍN HURTADO DO Procedure: US OB BPP w non-stress Biophysical profile. Reason for exam: Advanced maternal age. History of bariatric surgery. COMPARISON: 11/13/2024 TECHNIQUE: Transabdominal imaging of the gravid uterus was obtained. FINDINGS: Technical Publications Manager reports a BPP of 8 out of 8. CYNTHIA is normal at 13.2cm. heart rate 156bpm. US/US OB BPP w non-stress IMPRESSION: BPP 8 out of 8. Impression dictated by: Corey Fregoso Jr., D.O.11/20/2024 3:26 PM Dictation Location: [place] [address] Electronically authenticated by: [id number] Y Date: 11/20/2024 15:26 Dictated By: Corey Fregoso M.D. Signed By: 11/20/24 1528 DD/ 1526 TD/TT: Marketing Senior Recruiter: [facility] Radiology Radiologeloina shultz MD - 11/20/2024 The [place] [id number] Ultrasound Report Signed Patient: FARTUN HALL MR#: [id number] : 1985 Acct:[id number] Age/Sex: 39 / F ADM Date: 11/20/24 Loc: US Attending Dr: Fermín Hurtado D.O. Ordering Physician: Fermín Hurtado D.O. Date of Service: 11/20/24 Procedure(s): US OB BPP w non-stress Accession Number(s): [id number] cc: Everett Oliveros M.D.; Fermín Hurtado D.O. [place] [address] Patient Name: FARTUN HALL MRN: [facility]:[id number] date: 1985 Sex: F Assigned Patient Location: [facility] Current Patient Location: Accession/Order Number: [id number] Exam Date: 11/20/2024 15:25 Report Date: 11/20/2024 15:26 At the request of: FERMÍN HURTADO DO Procedure: US OB BPP w non-stress Biophysical profile. Reason for exam: Advanced maternal age. History of bariatric surgery. COMPARISON: 11/13/2024 TECHNIQUE: Transabdominal imaging of the gravid uterus was obtained. FINDINGS: Technical Publications Manager reports a BPP of 8 out of 8. CYNTHIA is normal at 13.2cm. heart rate 156bpm. US/US OB BPP w non-stress IMPRESSION: BPP 8 out of 8. Impression dictated by: Corey Fregoso Jr., D.O.11/20/2024 3:26 PM Dictation Location: [place] [address] Electronically authenticated by: [id number] Y Date: 11/20/2024 15:26 Dictated By: Corey Fregoso M.D. Signed By: 11/20/24 1528 DD/ 1526 TD/TT: Marketing Senior Recruiter: [facility] Radiology Study observation (narrative) [facility] US OB BPP W NON-STRESS Ordered By: Radiologist Radiology on 11-20-2024 [facility] Work Phone: Urinalysis macro (dipstick) panel (U)on 11-12-2024 Bilirubin, UA Positive Negative - 4(70) +++ mg/dL [facility] Comment on above: small Blood, UA Negative Negative - 50 Nnamdi/mcL [facility] Clarity, UA Clear [facility] Color, UA Yellow [facility] Glucose, UA Negative Negative - 2000(110) ++++ mg/dL [facility] Interpretation and review of laboratory results Abnormal [facility] Ketones, UA Positive Negative - 160(16) ++++ mg/dL [facility] Comment on above: 15mg/dL Leukocytes, UA Negative Negative - 500+++ Dilcia/mcL [facility] Nitrite, UA Negative Negative - Positive [facility] pH, UA 6 5 - 9 [facility] Protein, UA Positive Negative - 1999(20) ++++ mg/dL [facility] Comment on above: 30mg/dL Spec Grav, UA 1.025 1 - 1.03 [facility] Urobilinogen, UA 1.0 0.2 - 12 mg/dL [facility] Urinalysis macro (dipstick) panel (U)on 10-29-2024 Bilirubin, UA Negative Negative - 4(70) +++ mg/dL [facility] Blood, UA Negative Negative - 50 Nnamdi/mcL [facility] Clarity, UA Clear [facility] Color, UA Yellow [facility] Glucose, UA Negative Negative - 1999(110) ++++ mg/dL [facility] Interpretation and review of laboratory results Abnormal [facility] Ketones, UA Negative Negative - 160(16) ++++ mg/dL [facility] Leukocytes, UA Negative Negative - 500+++ Dilcia/mcL [facility] Nitrite, UA Negative Negative - Positive [facility] pH, UA 7 5 - 9 [facility] Protein, UA Trace Negative - 1999(20) ++++ mg/dL [facility] Spec Grav, UA 1.025 1 - 1.03 [facility] Urobilinogen, UA 4.0 0.2 - 12 mg/dL [facility] ALL CBC WITH AUTO DIFFon BASOPHILS ABSOLUTE AUTO 0.1 [facility] Basophils/100 WBC (Bld) 0.6 % 0.2 - 2.0 % [facility] Eosinophils/100 WBC (Bld) 3.2 % 0.9 - 7.0 % [facility] Erythrocyte distribution width (RBC) [Ratio] 13.1 % 11.0 - 15.0 % [facility] Hematocrit (Bld) [Volume fraction] 34.1 % Low 36.0 - 48.0 % [facility] Hemoglobin (Bld) [Mass/Vol] 10.9 g/dL Low 12.0 - 16.0 g/dL [facility] IMMATURE GRANULOCYTES ABS AUTO 0.03 [facility] Immature granulocytes/100 WBC (Bld) 0.3 % 0.0 - 0.5 % [facility] Interpretation and review of laboratory results Abnormal [facility] LYMPHOCYTES ABSOLUTE AUTO 2.9 [facility] Lymphocytes/100 WBC (Bld) 27.6 % 20.5 - 60.0 % [facility] MCH (RBC) [Entitic mass] 26.5 pg Low 26.7 - 34.0 pg [facility] MCHC (RBC) [Mass/Vol] 32 g/dL 29.9 - 35.2 g/dL [facility] MCV (RBC) [Entitic vol] 82.8 fL 81.0 - 99.0 fL [facility] MONOCYTES ABSOLUTE AUTO 0.7 [facility] Monocytes/100 WBC (Bld) 6.3 % 1.7 - 12.0 % [facility] NEUTROPHILS ABSOLUTE AUTO 6.5 [facility] Neutrophils/100 WBC (Bld) 62 % 43.0 - 75.0 % [facility] Platelet mean volume (Bld) [Entitic vol] 11.6 fL 9.5 - 13.5 fL [facility] TBH EO # 0.3 [facility] TB PLT 348 [facility] RBC 4.12 Low [facility] WBC 10.4 [facility] Urinalysis macro (dipstick) panel (U)on 10-03-2024 Bilirubin, UA Negative Negative - 4(70) +++ mg/dL [facility] Blood, UA Negative Negative - 50 Nnamdi/mcL [facility] Clarity, UA Clear [facility] Color, UA Yellow [facility] Glucose, UA Negative Negative - 1999(110) ++++ mg/dL [facility] Interpretation and review of laboratory results Abnormal [facility] Ketones, UA Negative Negative - 160(16) ++++ mg/dL [facility] Leukocytes, UA Negative Negative - 500+++ Dilcia/mcL [facility] Nitrite, UA Negative Negative - Positive [facility] pH, UA 6.5 5 - 9 [facility] Protein, UA Trace Negative - 1999(20) ++++ mg/dL [facility] Spec Grav, UA 1.025 1 - 1.03 [facility] Urobilinogen, UA 1.0 0.2 - 12 mg/dL [facility] Urinalysis macro (dipstick) panel (U)on 09-04-2024 Bilirubin, UA Negative Negative - 4(70) +++ mg/dL [facility] Blood, UA Negative Negative - 50 Nnamdi/mcL [facility] Clarity, UA Clear [facility] Color, UA Yellow [facility] Glucose, UA Negative Negative - 1999(110) ++++ mg/dL [facility] Interpretation and review of laboratory results Normal [facility] Ketones, UA Negative Negative - 160(16) ++++ mg/dL [facility] Leukocytes, UA Negative Negative - 500+++ Dilcia/mcL [facility] Nitrite, UA Negative Negative - Positive [facility] pH, UA 5.5 5 - 9 [facility] Protein, UA Negative Negative - 1999(20) ++++ mg/dL [facility] Spec Grav, UA 1.02 1 - 1.03 [facility] Urobilinogen, UA 1.0 0.2 - 12 mg/dL [facility] AFP, SERUM, OPEN SPINA BIFID Aon 08-11-2024 AFP MOM 1.01 . [facility] AFP VALUE 39.6 ng/mL . [facility] COMMENT: Comment . [facility] Comment on above: Hazel Dixon , Ph.D., [facility] Director References: Available Upon Request. Multiples Of Median Cutoffs For AFP Elevations Krishna 2.5 Black 2.8 IDD 2.0 Twins 4.5 Abbreviation Definitions IDD - Insulin Dep Diabetes OSBR - Open Spina Bifida Risk For further inquiries contact [facility] at [phone]. This test was developed and its performance characteristics determined by [employer] It has not been cleared or approved by the Food and Drug Administration. Performed at: [facility] [address] [place], [place] [id number] Toll Test Desk Worker: Mc Doshi [facility], Phone: [phone] GEST. AGE ON COLLECTION DATE 17.7 . weeks [facility] GESTAT. AGE BASED ON Ultrasound . [facility] Comment on above: 16.6 on 07/31/2024 Recalculations are not recommended when gestational dating by LMP and ultrasound are within 10 days. INSULIN DEP DIABETES No . [facility] INTERPRETATION Comment . [facility] Comment on above: Interpretation: Scre en [...] Customer Services to discuss available options. The [employer] recommends amniocentesis be offered to women age 35 and older. [age] [facility] MULTIPLE GESTATION No . [facility] OSBR RISK [place] [address] . [facility] RACE . [facility] RESULTS Report . [facility] TEST RESULTS: Negative . [facility] WEIGHT 161 . lbs [facility] N N ULTRASOUND [id number] 4 16 N 1 Y 161 N N N N N White/ [facility] IGP,APTIMA HPV,AGE GDLNon AGE GDLN ACOG TESTING Note . [facility] Comment on above: TESTS RESULT FLAG U NITS REF RANGE LAB Clinician Provided Cytology Information Source.............Cervix Other.............. No. of containers..01 ThinPrep Vial Age Algo ACOG Aniya... 30-65 01 FLAG LEGEND: L-Low Normal,H-High Normal,LL-Alert Low,HH-Alert High <-Panic Low,>-Panic High,A-Abnormal,AA-Critical Abnormal Performed at: 01 =G [address], [place] [address] Dipti Hurtado MD, HPV APTIMA Negative Negative [facility] Comment on above: This nucleic acid am plification test detects fourteen high- risk HPV types (16,18,31,33,35,39,45,51,52,56,58,59,66,68) without differentiation. Performed at: =[address] [id number] Toll Test Desk Worker: Dipti Hurtado MD, Phone: [phone] Performed at: [address], [place] [id number] Toll Test Desk Worker: Dipti Hurtado MD, Phone: [phone] IGP, APTIMA HPV, RFX 16/18,45 Note . [facility] Comment on above: TESTS RESULT FLAG UN ITS REF RANGE LAB DIAGNOSIS: 02 NEGATIVE FOR INTRAEPITHELIAL LESION OR MALIGNANCY. Specimen adequacy: 02 Satisfactory for evaluation. Endocervical and/or squamous metaplastic cells (endocervical component) are present. Performed by: Shasha Kincaid, Nightclub Manager (ASCP) . 02 Note: Note 02 The [...] <-Panic Low,>-Panic High,A-Abnormal,AA-Critical Abnormal Performed at: [address] [address] Dipti Hurtado MD, SPATULA-ALONE CERVIX [facility] RECURRENT VAGINITIS (HTRX)on 08-03-2024 ATOPOBIUM VAGINAE 0 [facility] ATOPOBIUM VAGINAE Not detected [facility] BVAB 2,3 (BACTERIAL VAGINOSIS ASSOCIATED BACTERIA 2, 3); MOBILUNCUS SPP 27.074 Abnormal [facility] BVAB 2,3 (BACTERIAL VAGINOSIS ASSOCIATED BACTERIA 2, 3); MOBILUNCUS SPP Detected Abnormal [facility] Healthcare LULY ALBICANS, PARAPSILOSIS, TROPICALIS 0 [facility] LULY ALBICANS, PARAPSILOSIS, TROPICALIS Not detected [facility] Healthcare LULY GLABRATA 0 [facility] Healthcare LULY GLABRATA Not detected [facility] Healthcare LULY KRUSEI 0 [facility] Healthcare LULY KRUSEI Not detected [facility] Healthcare CHLAMYDIA TRACHOMATIS 0 [facility] Healthcare CHLAMYDIA TRACHOMATIS Not detected N S [facility] GARDNERELLA VAGINALIS 30.955 Abnormal [facility] Healthcare GARDNERELLA VAGINALIS Detected Abnormal [facility] Healthcare Interpretation and review of laboratory results Abnormal [facility] Healthcare MEGASPHAERA (TYPES 1, 2) 0 [facility] MEGASPHAERA (TYPES 1, 2) Not detected [facility] MYCOPLASMA GENITALIUM 0 [facility] Healthcare MYCOPLASMA GENITALIUM Not detected N S [facility] NEISSERIA GONORRHOEAE 0 [facility] NEISSERIA GONORRHOEAE Not detected N [facility] TET B, TET M 16.937 Abnormal [facility] TET B, TET M Detected Abnormal [facility] Healthcare TRICHOMONAS VAGINALIS 0 [facility] TRICHOMONAS VAGINALIS Not detected N S [facility] Healthcare Urinalysis macro (dipstick) panel (U)on 07-31-2024 Bilirubin, UA Negative Negative - 4(70) +++ mg/dL [facility] Blood, UA Negative Negative - 50 Nnamdi/mcL [facility] Clarity, UA Clear [facility] Color, UA Yellow [facility] Glucose, UA Negative Negative - 1999(110) ++++ mg/dL [facility] Interpretation and review of laboratory results Normal [facility] Ketones, UA Negative Negative - 160(16) ++++ mg/dL [facility] Leukocytes, UA Negative Negative - 500+++ Dilcia/mcL [facility] Nitrite, UA Negative Negative - Positive [facility] pH, UA 6 5 - 9 [facility] Protein, UA Negative Negative - 1999(20) ++++ mg/dL [facility] Spec Grav, UA 1.015 1 - 1.03 [facility] Urobilinogen, UA 1.0 0.2 - 12 mg/dL [facility] ALL CBC WITH AUTO DIFFon BASOPHILS ABSOLUTE AUTO 0.1 [facility] Basophils/100 WBC (Bld) 0.6 % 0.2 - 2.0 % [facility] Eosinophils/100 WBC (Bld) 3.7 % 0.9 - 7.0 % [facility] Erythrocyte distribution width (RBC) [Ratio] 13.1 % 11.0 - 15.0 % [facility] Hematocrit (Bld) [Volume fraction] 36.3 % 36.0 - 48.0 % [facility] Hemoglobin (Bld) [Mass/Vol] 11.7 g/dL Low 12.0 - 16.0 g/dL [facility] IMMATURE GRANULOCYTES ABS AUTO 0.03 [facility] Immature granulocytes/100 WBC (Bld) 0.3 % 0.0 - 0.5 % [facility] Interpretation and review of laboratory results Abnormal [facility] LYMPHOCYTES ABSOLUTE AUTO 3.1 [facility] Lymphocytes/100 WBC (Bld) 31.7 % 20.5 - 60.0 % [facility] MCH (RBC) [Entitic mass] 27.7 pg 26.7 - 34.0 pg [facility] MCHC (RBC) [Mass/Vol] 32.2 g/dL 29.9 - 35.2 g/dL [facility] MCV (RBC) [Entitic vol] 85.8 fL 81.0 - 99.0 fL [facility] MONOCYTES ABSOLUTE AUTO 0.6 [facility] Monocytes/100 WBC (Bld) 6.3 % 1.7 - 12.0 % [facility] NEUTROPHILS ABSOLUTE AUTO 5.6 [facility] Neutrophils/100 WBC (Bld) 57.4 % 43.0 - 75.0 % [facility] Platelet mean volume (Bld) [Entitic vol] 11.9 fL 9.5 - 13.5 fL [facility] TBH EO # 0.4 [facility] PLT 306 [facility] RBC 4.23 [facility] WBC 9.8 [facility] HCG ( test) Ql (U)o n 07-04-2024 Interpretation and review of laboratory results Abnormal [facility] Preg Test, Ur Positive Negative [facility] Urinalysis macro (dipstick) panel (U)on 07-04-2024 Bilirubin, UA Negative Negative - 4(70) +++ mg/dL [facility] Blood, UA Positive Negative - 50 Nnamdi/mcL [facility] Comment on above: trace-intact Clarity, UA Clear [facility] Color, UA Yellow [facility] Glucose, UA Negative Negative - 2000(110) ++++ mg/dL [facility] Interpretation and review of laboratory results Abnormal [facility] Ketones, UA Negative Negative - 160(16) ++++ mg/dL [facility] Leukocytes, UA Negative Negative - 500+++ Dilcia/mcL [facility] Nitrite, UA Negative Negative - Positive [facility] pH, UA 6 5 - 9 [facility] Protein, UA Negative Negative - 2000(20) ++++ mg/dL [facility] Spec Grav, UA 1.03 1 - 1.03 [facility] Urobilinogen, UA 0.2 0.2 - 12 mg/dL [facility] PREG QUANT HCGon 01-17-2023 HCG QUANT <1 Normal [facility] Comment on above: Performed By: #### P REGQNT #### [facility] [address] [address] [address] Meghan Vital HCG RANGE SEE BELOW Normal [facility] Comment on above: Result Comment: 5-50 0.2-1 WEEK 50-500 1-2 WEEKS 100-5,000 2-3 WEEKS 500-10,000 3-4 WEEKS 1,000-50,000 4-5 WEEKS 10,000-100,000 5-6 WEEKS 15,000-200,000 6-8 WEEKS 10,000-100,000 2-3 MONTHS Performed By: #### P REGQNT #### [facility] [address] [place] [address] Dr. Meghan Vital PROGESTERONEon 01-10-2023 Progesterone 8.9 ng/mL Normal [facility] Comment on above: Result Comment: Foll icular phase 0.1 - 0.9 Luteal phase 1.8 - 23.9 Ovulation phase 0.1 - 12.0 First trimester 11.0 - 44.3 Second trimester 25.4 - 83.3 Third trimester 58.7 - 214.0 Postmenopausal 0.0 - 0.1 Performed By: #### H CGSUB #### [facility] [address] [place] [address] Dr. Meghan Vital PAP ACOG PANEL 2: 30 to 65on 11-30-2022 . . Normal [facility] Comment on above: Result Comment: Perf ormed at: WB Performed By: #### [id number] #### [facility] [address] [place] [address] Dr. Meghan Vital Age Gdln ACOG Testing [facility] Comment on above: Performed By: #### [id number] #### [facility] [address] [place] [address] Dr. Meghan Vital DIAGNOSIS: Comment Normal [facility] Comment on above: Result Comment: NEGA TIVE FOR INTRAEPITHELIAL LESION OR MALIGNANCY. Performed at: WB Performed By: #### [id number] #### [facility] [address] [place] [address] Dr. Meghan Vital HPV Aptima Positive Abnormal Negative [facility] Comment on above: Result Comment: This nucleic acid amplification test detects fourteen high-risk HPV types (16,18,31,33,35,39,45,51,52,56,58,59,66,68) without differentiation. Performed at: =G Performed By: #### [id number] #### [facility] [address] [place] [address] Dr. Meghan Vital HPV Genotype 16 Negative Normal Negative [facility] Comment on above: Performed By: #### [id number] #### [facility] [address] [place] [address] Dr. Meghan Vital HPV Genotype 18,45 Negative Normal Negative [facility] Comment on above: Performed By: #### [id number] #### [facility] [address] [place] [address] Dr. Meghan Vital HPV Genotype Reflex Comment Normal [facility] Comment on above: Result Comment: Aiyana iqbal, see HPV Genotype results. Performed at: WB Performed By: #### [id number] #### [facility] [address] [place] [address] Dr. Meghan iVtal Methodology: Comment Normal [facility] Comment on above: Result Comment: This liquid based ThinPrep(R) pap test was screened with the use of an image guided system. Performed at: WB Performed By: #### [id number] #### [facility] [address] [place] [address] Dr. Meghan Vital Note: Comment Normal [facility] Comment on above: Result Comment: The Pap smear is a screening test designed to aid in the detection of premalignant and malignant conditions of the uterine cervix. It is not a diagnostic procedure and should not be used as the sole means of detecting cervical cancer. Both false-positive and false-negative reports do occur. . Performed at: WB Performed By: #### [id number] #### [facility] [address] [place] [address] Dr. Meghan Vital Performed by: Comment Normal [facility] Comment on above: Result Comment: Rahul Knicaid, Nightclub Manager (ASCP) Performed at: WB Performed By: #### [id number] #### [facility] [address] [place] [address] Dr. Meghan Vital Specimen adequacy: Comment Normal [facility] Comment on above: Result Comment: Sati sfactory for evaluation. Endocervical and/or squamous metaplastic cells (endocervical component) are present. Performed at: WB Performed By: #### [id number] #### [facility] [address] [place] [address] Dr. Meghan Vital ANTI-MULLERIAN HORMONEon Anti-Mullerian Hormone (AMH) 3.03 ng/mL Normal [facility] Comment on above: Result Comment: For assays employing antibodies, the possibility exists for interference by heterophile antibodies in the samples.1 1.Bailey Dickson Interferences in Immunoassays - still a threat. Clin. Chem. 2000; 46: 2960-9454. This test was developed and its performance characteristics determined by [facility]. It has not been cleared or approved by the Food and Drug Administration. Reference Range: Females 36 - 40y: 0.42 - 8.34 Median 1.69 AMH concentrations of >= 1.06 ng/mL is correlated with a better response to ovarian stimulation, produced more retrievable oocytes and higher odds of live according to Shaniceer et al. Fertility and Sterility. 2010: 94:4800-0494. The current AMH test method correlates with [...] tumor. Performed By: #### H CGSUB #### [facility] [address] [place] [address] Dr. Meghan Vital CBC AUTO DIFFon 11-21-2022 BASO # 0.1 103/ul Normal 0.0-0.1 [facility] Comment on above: Performed By: #### H CGSUB #### [facility] [address] [place] [address] Dr. Meghan Vital Basophils/100 WBC (Bld) 0.8 % Normal 0.2-2.0 [facility] Comment on above: Performed By: #### H CGSUB #### [facility] [address] [place] [address] Dr. Meghna Vital EO # 0.2 103/ul Normal 0.0-0.7 [facility] Comment on above: Performed By: #### H CGSUB #### [facility] [address] [place] [address] Dr. Meghan Vital Eosinophils/100 WBC (Bld) 2.3 % Normal 0.9-7.0 [facility] Comment on above: Performed By: #### H CGSUB #### [facility] [address] [place] [address] Dr. Meghan Vital Erythrocyte distribution width (RBC) [Ratio] 13.3 % Normal 11.0-15.0 [facility] Comment on above: Performed By: #### H CGSUB #### [facility] [address] [place] [address] Dr. Meghan Vital Hematocrit (Bld) [Volume fraction] 42.4 % Normal 36.0-48.0 [facility] Comment on above: Performed By: #### H CGSUB #### [facility] [address] [place] [address] Dr. Meghan Vital Hemoglobin (Bld) [Mass/Vol] 13.6 g/dL Normal 12.0-16.0 [facility] Comment on above: Performed By: #### H CGSUB #### [facility] [address] [place] [address] Dr. Meghan Vital IG # 0.01 10e3/ul Normal 0.00-0.03 [facility] Comment on above: Performed By: #### H CGSUB #### [facility] [address] [place] [address] Dr. Meghan Vital IG % 0.1 % Normal 0.0-0.5 [facility] Comment on above: Performed By: #### H CGSUB #### [facility] [address] [place] [address] Dr. Meghan Vital LYMPH # 3.9 103/ul Critically high 1.2-3.8 [facility] Comment on above: Performed By: #### H CGSUB #### [facility] [address] [place] [address] Dr. Meghan Vital Lymphocytes/100 WBC (Bld) 42.7 % Normal 20.5-60.0 [facility] Comment on above: Performed By: #### H CGSUB #### [facility] [address] [place] [address] Dr. Meghan Vital MANUAL DIFF REQ NO Normal [facility] Comment on above: Performed By: #### H CGSUB #### [facility] [address] [place] [address] Dr. Meghan Vital MCH (RBC) [Entitic mass] 27.4 pg Normal 26.7-34.0 [facility] Comment on above: Performed By: #### H CGSUB #### [facility] [address] [place] [address] Dr. Meghan Vital MCHC (RBC) [Mass/Vol] 32.1 g/dL Normal 29.9-35.2 [facility] Comment on above: Performed By: #### H CGSUB #### [facility] [address] [place] [address] Dr. Meghan Vital MCV (RBC) [Entitic vol] 85.3 fL Normal 81.0-99.0 [facility] Comment on above: Performed By: #### H CGSUB #### [facility] [address] [place] [address] Dr. Meghan Vital MONO # 0.6 103/ul Normal 0.3-0.8 [facility] Comment on above: Performed By: #### H CGSUB #### [facility] [address] [place] [address] Dr. Meghan Vital Monocytes/100 WBC (Bld) 6.1 % Normal 1.7-12.0 [facility] Comment on above: Performed By: #### H CGSUB #### [facility] [address] [place] [address] Dr. Meghan Vital NEUT # 4.3 103/ul Normal 1.4-6.5 [facility] Comment on above: Performed By: #### H CGSUB #### [facility] [address] [place] [address] Dr. Meghan Vital Neutrophils/100 WBC (Bld) 48.0 % Normal 43.0-75.0 [facility] Comment on above: Performed By: #### H CGSUB #### [facility] [address] [address] [address] Meghan Vital Platelet mean volume (Bld) [Entitic vol] 11.5 fL Normal 9.5-13.5 [facility] Comment on above: Performed By: #### H CGSUB #### [facility] [address] [address] [address] Meghan Vital PLT 251 103/ul Normal 150-450 [facility] Comment on above: Performed By: #### H CGSUB #### [facility] [address] [place] [address] Dr. Meghan Vital RBC 4.97 106/ul Normal 4.20-5.40 [facility] Comment on above: Performed By: #### H CGSUB #### [facility] [address] [place] [address] Dr. Meghan Vital WBC 9.0 103/ul Normal 4.0-11.0 [facility] Comment on above: Performed By: #### H CGSUB #### [facility] [address] [place] [address] Dr. Meghan Vital FREE T4on 11-21-2022 Free T4 [Mass/Vol] 1.03 ng/dL Normal 0.76-1.46 [facility] Comment on above: Performed By: #### F T4 #### [facility] [address] [place] [address] Dr. Meghan Vital GLYCOHEMOGLOBIN A1Con 2022 ADA RECOMMENDATION SEE BELOW Normal [facility] Comment on above: Result Comment: ADA RECOMMENDED LIMIT 4.0 - 6.0 ADA THERAPEUTIC TARGET < 7.0 ACTION SUGGESTED > 7.0 Performed By: #### H CGSUB #### [facility] [address] [place] [address] Dr. Meghan Vital Glucose [Mass/Vol] 97 mg/dL Normal [facility] Comment on above: Performed By: #### H CGSUB #### [facility] [address] [place] [address] Dr. Meghan Vital HbA1c (Bld) [Mass fraction] 5.0 % Normal 4.5-6.2 [facility] Comment on above: Performed By: #### H CGSUB #### [facility] [address] [place] [address] Dr. Meghan Vital TSHon 11-21-2022 TSH 1.636 uIU/mL Normal 0.358-3.74 0 [facility] Comment on above: Performed By: #### H CGSUB #### [facility] [address] [place] [address] Dr. Meghan Vital PROGESTERONEon 10-12-2022 Progesterone 6.8 ng/mL Normal [facility] Comment on above: Result Comment: Foll icular phase 0.1 - 0.9 Luteal phase 1.8 - 23.9 Ovulation phase 0.1 - 12.0 First trimester 11.0 - 44.3 Second trimester 25.4 - 83.3 Third trimester 58.7 - 214.0 Postmenopausal 0.0 - 0.1 Performed By: #### H CGSUB #### [facility] [address] [place] [address] Dr. Meghan Vital CBC AUTO DIFFon 09-23-2022 BASO # 0.1 103/ul Normal 0.0-0.1 [facility] Comment on above: Performed By: #### C BC #### [facility] [address] [place] [address] Dr. Meghan Vital Basophils/100 WBC (Bld) 1.2 % Normal 0.2-2.0 [facility] Comment on above: Performed By: #### C BC #### [facility] [address] [place] [address] Dr. Meghan Vital EO # 0.2 103/ul Normal 0.0-0.7 [facility] Comment on above: Performed By: #### C BC #### [facility] [address] [place] [address] Dr. Meghan Vital Eosinophils/100 WBC (Bld) 2.4 % Normal 0.9-7.0 [facility] Comment on above: Performed By: #### C BC #### [facility] [address] [place] [address] Dr. Meghan Vital Erythrocyte distribution width (RBC) [Ratio] 13.1 % Normal 11.0-15.0 [facility] Comment on above: Performed By: #### C BC #### [facility] [address] [place] [address] Dr. Meghan Vital Hematocrit (Bld) [Volume fraction] 38.1 % Normal 36.0-48.0 [facility] Comment on above: Performed By: #### C BC #### [facility] [address] [place] [address] Dr. Meghan Vital Hemoglobin (Bld) [Mass/Vol] 13.4 g/dL Normal 12.0-16.0 [facility] Comment on above: Performed By: #### C BC #### [facility] [address] [place] [address] Dr. Meghan Vital IG # 0.01 10e3/ul Normal 0.00-0.03 [facility] Comment on above: Performed By: #### C BC #### [facility] [address] [place] [address] Dr. Meghan Vital IG % 0.1 % Normal 0.0-0.5 [facility] Comment on above: Performed By: #### C BC #### [facility] [address] [place] [address] Dr. Meghan Vital LYMPH # 3.4 103/ul Normal 1.2-3.8 [facility] Comment on above: Performed By: #### C BC #### [facility] [address] [place] [address] Dr. Meghan Vital Lymphocytes/100 WBC (Bld) 45.2 % Normal 20.5-60.0 [facility] Comment on above: Performed By: #### C BC #### [facility] [address] [place] [address] Dr. Meghan Vital MANUAL DIFF REQ NO Normal [facility] Comment on above: Performed By: #### C BC #### [facility] [address] [place] [address] Dr. Meghan Vital MCH (RBC) [Entitic mass] 27.8 pg Normal 26.7-34.0 [facility] Comment on above: Performed By: #### C BC #### [facility] [address] [place] [address] Dr. Meghan Vital MCHC (RBC) [Mass/Vol] 35.2 g/dL Normal 29.9-35.2 [facility] Comment on above: Performed By: #### C BC #### [facility] [address] [place] [address] Dr. Meghan Vital MCV (RBC) [Entitic vol] 79.0 fL Critically low 81.0-99.0 [facility] Comment on above: Performed By: #### C BC #### [facility] [address] [place] [address] Dr. Meghan Vital MONO # 0.4 103/ul Normal 0.3-0.8 [facility] Comment on above: Performed By: #### C BC #### [facility] [address] [place] [address] Dr. Meghan Vital Monocytes/100 WBC (Bld) 5.3 % Normal 1.7-12.0 [facility] Comment on above: Performed By: #### C BC #### [facility] [address] [place] [address] Dr. Meghan iVtal NEUT # 3.4 103/ul Normal 1.4-6.5 [facility] Comment on above: Performed By: #### C BC #### [facility] [address] [place] [address] Dr. Meghan Vital Neutrophils/100 WBC (Bld) 45.8 % Normal 43.0-75.0 [facility] Comment on above: Performed By: #### C BC #### [facility] [address] [place] [address] Dr. Meghan Vital Platelet mean volume (Bld) [Entitic vol] 11.4 fL Normal 9.5-13.5 [facility] Comment on above: Performed By: #### C BC #### [facility] Laboratory [address] [place] [address] Dr. Meghan Vital PLT 280 103/ul Normal 150-450 The [facility] Comment on above: Performed By: #### C BC #### [facility] [address] [place] [address] Dr. Meghan Vital RBC 4.82 106/ul Normal 4.20-5.40 The [facility] Comment on above: Performed By: #### C BC #### [facility] [address] [place] [address] Dr. Meghan Vital WBC 7.5 103/ul Normal 4.0-11.0 [facility] Comment on above: Performed By: #### C BC #### [facility] [address] [place] [address] Dr. Meghan Vital FREE T4on 09-23-2022 Free T4 [Mass/Vol] 1.17 ng/dL Normal 0.76-1.46 [facility] Comment on above: Performed By: #### H CGSUB #### [facility] [address] [place] [address] Dr. Meghan Vital GLYCOHEMOGLOBIN A1Con 2022 ADA RECOMMENDATION SEE BELOW Normal [facility] Comment on above: Result Comment: ADA RECOMMENDED LIMIT 4.0 - 6.0 ADA THERAPEUTIC TARGET < 7.0 ACTION SUGGESTED > 7.0 Performed By: #### A 1C #### [facility] [address] [place] [address] Dr. Meghan Vital Glucose [Mass/Vol] 100 mg/dL Normal The [facility] Comment on above: Performed By: #### A 1C #### [facility] [address] [place] [address] Dr. Meghan Vital HbA1c (Bld) [Mass fraction] 5.1 % Normal 4.5-6.2 [facility] Comment on above: Performed By: #### A 1C #### [facility] [address] [place] [address] Dr. Meghan Vital TSHon 09-23-2022 TSH 1.235 uIU/mL Normal 0.358-3.74 0 [facility] Comment on above: Performed By: #### T SH #### [facility] [address] [place] [address] Dr. Meghan Vital PREG QUANT HCGon 07-12-2022 HCG QUANT 1 mIU/mL Normal [facility] Comment on above: Performed By: #### P REGQNT #### [facility] [address] [place] [address] Dr. Meghan Vital HCG RANGE SEE BELOW Normal [facility] Comment on above: Result Comment: 5-50 0.2-1 WEEK 50-500 1-2 WEEKS 100-5,000 2-3 WEEKS 500-10,000 3-4 WEEKS 1,000-50,000 4-5 WEEKS 10,000-100,000 5-6 WEEKS 15,000-200,000 6-8 WEEKS 10,000-100,000 2-3 MONTHS Performed By: #### P REGQNT #### [facility] [address] [place] [address] Dr. Meghan Vital XR HYSTEROSALPINGOGRAMon XR HYSTEROSALPINGOGRAM [...] by: YADIRA BAKER Date: 2022-07-12 12:12 Normal [facility] PROGESTERONEon 06-30-2022 Progesterone 20.9 ng/mL Normal [facility] Comment on above: Result Comment: Foll icular phase 0.1 - 0.9 Luteal phase 1.8 - 23.9 Ovulation phase 0.1 - 12.0 First trimester 11.0 - 44.3 Second trimester 25.4 - 83.3 Third trimester 58.7 - 214.0 Postmenopausal 0.0 - 0.1 Performed By: #### P ROGES #### [facility] [address] [place] [address] Dr. Meghan Vital HCG-BETA SUBUNIT QUANTon hCG,Beta Subunit,Qnt,Serum <1 Normal The [facility] Comment on above: Result Comment: Fema le (Non-) 0 - 5 (Postmenopausal) 0 - 8 . Female () Weeks of Gestation 3 6 - 71 4 10 - 750 5 217 - 7138 6 158 - 11522 7 3697 -564856 8 69931 -010137 9 06376 -391576 10 21308 -626181 12 75132 -234540 14 91593 - 70652 15 55060 - 54639 16 9040 - 02542 17 8175 - 03910 18 8099 - 37707 Jeremy ECLIA methodology Performed By: #### H CGSUB #### [facility] [address] [place] [address] Dr. Meghan Vital HCG-BETA SUBUNIT QUANTon hCG,Beta Subunit,Qnt,Serum <1 Normal The [facility] Comment on above: Result Comment: Fema le (Non-) 0 - 5 (Postmenopausal) 0 - 8 . Female () Weeks of Gestation 3 6 - 71 4 10 - 750 5 217 - 7138 6 158 - 41988 7 3697 -784007 8 74769 -159084 9 81793 -343121 10 37679 -237964 12 65620 -002851 14 97712 - 31877 15 65025 - 30054 16 9040 - 44387 17 8175 - 53372 18 8099 - 88271 Jeremy ECLIA methodology Performed By: #### H CGSUB #### [facility] [address] [place] [address] Dr. Meghan Vital PROGESTERONEon 02-26-2022 Progesterone <0.1 Normal The [facility] Comment on above: Result Comment: Foll icular phase 0.1 - 0.9 Luteal phase 1.8 - 23.9 Ovulation phase 0.1 - 12.0 First trimester 11.0 - 44.3 Second trimester 25.4 - 83.3 Third trimester 58.7 - 214.0 Postmenopausal 0.0 - 0.1 Performed By: #### P PHIL #### [facility] [address] [place] [address] Dr. Meghan Vital US PELVIS AND TRANSVAGon [...] No acute abnormality Electronically authenticated by: YANIRA MICHEAL Date: 2022-02-24 16:57 Normal The [facility] Ambulatory Clinical Summaryo n 12-22-2020 Ambulatory Clinical Summary {[id number]}CD:61 [id number] Normal [facility] Family Medicine Office/Clini c Noteon [...] documented 3008F Office Visit Level 2 Est 06946 2. Tobacco use (Z72.0: Tobacco use) We [...] smoker 1034F Office Visit Level 2 Est 83682 3. Hordeolum externum right lower eyelid (H00.012: Hordeolum externum right lower eyelid) Will treat with bacitracin ointment. May use warm compresses 3-4 x day. FU with PCP if not gradually improving over next 7 days, sooner if significantly spreading erythema, edema, warmth, fever. Patient verbalized understanding of tx plan Ordered: Office Visit Level 2 Est 92845 Orders: erythromycin ophthalmic, 0.5 in, OPTH, QID [...] 11/17/2020 Family History Family history is negative [facility] Comment on above: Result Comment: [...] methods. Where to find more information ? [place] [employer]: www.lung.org ? [place] [employer]: www.cancer.org Summary ? Smoking cigarettes [...] 09/21/2005 Document Revised: 11/15/2018 Document Reviewed: 08/18/2017 [employer] Patient Education ? 2019 [employer]. [facility] Provider Letteron 12-22-2020 Provider Letter (Inserted Image. Mary ble to display) December 22, 2020 FARTUN RODRÍGUEZ [address] [place] [phone] FARTUN RODRÍGUEZ 1985 To Whom It May Concern, Please excuse above patient from work. 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 Cigarettes, Yes, 11/17/2020 [facility] Comment on above: Result Comment: [...] to help relieve symptoms, such as: ? Fgld-ous-cfnbhrt cold medicines. ? Cough suppressants. Coughing is [...] other clear broths. General instructions ? Take zlpm-zej-ndktiew and prescription medicines only as told by [...] and water are not available, use hand retirement benefits specialist. ? Avoid touching your mouth, face, eyes, [...] a common infecti (more content not included)... [facility] Provider Letteron 11-17-2020 Provider Letter (Inserted Image. Mary ble to display) November 17, 2020 FARTUN RODRÍGUEZ [address] [place] [phone] FARTUN RODRÍGUEZ 1985 To Whom It May Concern, Please excuse above patient from work. Date of Illness: From: 11/17/2020 To: 11/18/2020 May Return to Work On:11/19/2020 Comments: Patient above was seen at [facility] on 11/17/2020. Sincerely, [facility] Care [address] [place] [id number] [facility] Provider Letteron 09-22-2020 Provider Letter (Inserted Image. Mary ble to display) September 22, 2020 FARTUN RODRÍGUEZ [address] [place] [phone] FARTUN RODRÍGUEZ 1985 To Whom It May Concern, Please excuse above patient from work. Date of Illness: From: 09/22/2020 May Return to Work On:09/23/2020 Comments: The above patient may return back to work on the above date. Sincerely, [facility] Care [address] [place] [id number] [facility] SURGICAL PATH REPORTon 07-31 SURGICAL PATH REPORT [facility] Department of Pathology [address] [place] [phone] Name: FARTUN RODRÍGUEZ : 1985 Financial [id number] Number: Gender: Female Location: [facility] Admit 34 years Attending FERMÍN HURTADO Age: Provider: Ordering FERMÍN HURTADO Provider: Consulting: Surgical Pathology Report ACCESSION: COLLECTED DATE/TIME: RECEIVED DATE/TIME: PATHOLOGIST: [id number] 07/30/2020 13:19 EST 07/30/2020 13:19 EST SHADE MULLER MD Final Diagnosis Report for [facility] [place] [place] [employer]ION: - [employer]OR[employer]ILLI. [...] cm. There are no grossly identifiable parts. Senior Mechanical Project Engineer sections are submitted in three cassettes. MP/ekaterina 07/30/2020 Tissue pathology report for: [facility], [address] [place] [id number]; Print Date/ 07/31/2020 15:05 EST Number: Time: [facility] Department of Pathology [address] [place] [phone] Name: FARTUN RODRÍGUEZ : 1985 [facility] [id number] Number: Gender: Female Location: [facility] Admit 34 years Attending FERMÍN HURTADO Age: Provider: Ordering FERMÍN HURTADO Provider: Consulting: Surgical Pathology Report ACCESSION: COLLECTED DATE/TIME: RECEIVED DATE/TIME: PATHOLOGIST: [id number] 07/30/2020 13:19 EST 07/30/2020 13:19 EST YOHANA MESSER, SHADE Dolan Description PATHOLOGY SERVICES PROVIDED BY [email or web address] (CLIA #[id number]) in cooperation with [facility] at [address] [place] [address] (CLIA #[id number]) Codes CPT CODE: 27382 Print Date/ 07/31/2020 15:05 EST Number: Time: Normal [facility] Comment on above: Performed By: #### [id number] #### [facility] Laboratory Services [address] [place] [address] Front End Software Developer: Shade Muller MD Consenton 05-29-2020 Consent [id number]:127 [facility] Registrationon 05-29-2020 Registration [id number]:127 [facility] Influenza A,Bon 11-08-2018 Influenza A, Rapid Ag Negative Normal Negative [facility] Comment on above: Performed By: #### 5 [id number] #### [facility] [address] [place] [address] Influenza B, Rapid Ag Negative Normal Negative [facility] Comment on above: Performed By: #### 5 [id number] #### [facility] [address] [place] [address] Urinalysis with Reflex Cultu reon 11-08-2018 Appearance Nom (U) Clear Normal Clear [facility] Comment on above: Performed By: #### U ARFX #### [facility] [address] [place] [address] Ascorbic Acid Negative Normal Negative [facility] Comment on above: Performed By: #### U ARFX #### [facility] [address] [place] [address] Automated Urine Microscopy Not indicated Normal [facility] Comment on above: Performed By: #### U ARFX #### [facility] [address] [place] [address] Bilirubin mass conc Negative Normal Negative [facility] Comment on above: Performed By: #### U ARFX #### [facility] [address] [place] [address] Blood Negative Normal Negative [facility] Comment on above: Performed By: #### U ARFX #### [facility] [address] [place] [address] Color Nom (U) Yellow Normal [facility] Comment on above: Performed By: #### U ARFX #### [facility] [address] [place] [address] Glucose mass conc 50 mg/dL Abnormal Negative [facility] Comment on above: Performed By: #### U ARFX #### [facility] [address] [place] [address] Ketones Ql (U) Negative Normal Negative [facility] Comment on above: Performed By: #### U ARFX #### [facility] [address] [place] [address] Leukocytes Esterase Negative Normal Negative [facility] Comment on above: Performed By: #### U ARFX #### [facility] [address] [place] [address] Nitrite Ql (U) Negative Normal Negative [facility] Comment on above: Performed By: #### U ARFX #### [facility] [address] [place] [address] pH (Bld) 5.0 Normal 5.0-9.0 [facility] Comment on above: Performed By: #### U ARFX #### [facility] [address] [place] [address] Protein mass conc (U) Negative Normal Negative [facility] Comment on above: Performed By: #### U ARFX #### [facility] [address] [place] [address] Specific gravity Relative Density (U) 1.026 Normal 1.003-1.03 5 [facility] Comment on above: Performed By: #### U ARFX #### [facility] [address] [place] [address] Urobilinogen Qn (U) <2.0 Normal Negative [facility] Comment on above: Result Comment: Due to a manufacturing issue, low positive urobilinogen results may be falsely positive. Correlate with urine bilirubin and additional clinical/laboratory findings to assess the risk of hemolytic anemia or liver disease. If clinically indicated, repeat testing with an alternate method is available by contacting the laboratory within 24 hours. Performed By: #### U ARFX #### [facility] [address] [place] [address] STREP GROUP A AG QUALon 08-29 STREP GROUP A AG QUAL STREP GROUP A AG Q UAL GROUP A STREP NEGATIVE FOR STREPTOCOCCUS GROUP A ANTIGEN THROAT CULTURE: REFERRED TO [facility] FOR CULTURE CONFIRMATION CULTURE RESULT: CULTURE NEGATIVE FOR BETA STREP GROUP A Normal [facility] Comment on above: Performed By: #### M STREPA ####[facility] [address] [place] [address] ED Provider Reporton 018 ED Provider Report [facility] [place] [place], [place] [address]Patient Name: FARTUN RODRÍGUEZ : [birth year]Acct #: [id number] Unit #: [id number] ER Arrival Date: 09/21/17 ER Physician: Yoshi [...] illicit drug usePast Social HistorySmoking Status:FORMER SMOKERTobacco UseCIGARETTESPacks/Obw6Tztv :LESS THAN 1 YEAR AGOReview of SystemsReview [...] Resp B/P B/P Pulse O2 O2 Flow NyL0Abxi Ox Delivery Rate09/21 1712 36.5 83 18 [...] to follow-up with PCP.Disposition DecisionDischargeDispositio n Date09/21/17Decision [id number] obiologyDate/Time Procedure - StatusSource Tzkgkg02/25 1745 Group A Streptococcus Screen (BETHNAY) - RESTHROATResident AttestationDid you see this patient [...] 1146 Normal [facility] Vital Signs Date Time Vital Sign Value Performing Clinician Facility 12-10-2024 14:48-0400 Body mass index (BMI) [Ratio] 32.1 kg/m2 Adzuna Work Phone: [facility] 12-10-2024 14:48-0400 Body weight 84.82 kg Adzuna Work Phone: [facility] 12-10-2024 14:48-0400 Diastolic blood pressure 70 mm[Hg] Fermín FOCUS RESEARCH Work Phone: [facility] 12-10-2024 14:48-0400 Systolic blood pressure 122 mm[Hg] Fermín Bryant DO Work Phone: [facility] 11-26-2024 14:56-0400 Body mass index (BMI) [Ratio] 30.9 kg/m2 Fermín Bryant DO Work Phone: [facility] 11-26-2024 14:56-0400 Body weight 81.65 kg Fermín Bryant DO Work Phone: [facility] 11-26-2024 14:56-0400 Diastolic blood pressure 62 mm[Hg] Fermín Bryant DO Work Phone: [facility] 11-26-2024 14:56-0400 Systolic blood pressure 112 mm[Hg] Fermín Bryant DO Work Phone: [facility] 11-12-2024 10:00-0400 Body mass index (BMI) [Ratio] 30.18 kg/m2 Fermín Bryant DO Work Phone: [facility] 11-12-2024 10:00-0400 Body weight 79.74 kg Fermín Bryant DO Work Phone: [facility] 11-12-2024 10:00-0400 Diastolic blood pressure 72 mm[Hg] Fermín Bryant DO Work Phone: [facility] 11-12-2024 10:00-0400 Systolic blood pressure 100 mm[Hg] Fermín Bryant DO Work Phone: [facility] 10-29-2024 10:05-0500 Body mass index (BMI) [Ratio] 31.21 kg/m2 Fermín Bryant DO Work Phone: [facility] 10-29-2024 10:05-0500 Body weight 82.46 kg Fermín Bryant DO Work Phone: [facility] 10-29-2024 10:05-0500 Diastolic blood pressure 64 mm[Hg] Fermín Bryant DO Work Phone: [facility] 10-29-2024 10:05-0500 Systolic blood pressure 100 mm[Hg] Fermín Bryant DO Work Phone: [facility] 10-03-2024 11:32-0500 Body mass index (BMI) [Ratio] 30.04 kg/m2 Fermín Bryant DO Work Phone: [facility] 10-03-2024 11:32-0500 Body weight 79.38 kg Fermín Bryant DO Work Phone: [facility] 10-03-2024 11:32-0500 Diastolic blood pressure 68 mm[Hg] Fermín Bryant DO Work Phone: [facility] 10-03-2024 11:32-0500 Systolic blood pressure 120 mm[Hg] Fermín Bryant DO Work Phone: [facility] 09-06-2024 10:13-0500 Body weight 77.11 kg Ermelinda Nichols MD Work Phone: [facility] 09-04-2024 15:21-0500 Body mass index (BMI) [Ratio] 28.8 kg/m2 Fermín Bryant DO Work Phone: [facility] 09-04-2024 15:21-0500 Body weight 76.11 kg Fermín Bryant DO Work Phone: [facility] 09-04-2024 15:21-0500 Diastolic blood pressure 64 mm[Hg] Fermín Bryant DO Work Phone: [facility] 09-04-2024 15:21-0500 Systolic blood pressure 100 mm[Hg] Fermín Bryant DO Work Phone: [facility] 07-31-2024 14:58-0500 Body mass index (BMI) [Ratio] 27.7 kg/m2 Fermín Bryant DO Work Phone: [facility] 07-31-2024 14:58-0500 Body weight 73.21 kg Fermín Bryant DO Work Phone: [facility] 07-31-2024 14:58-0500 Diastolic blood pressure 62 mm[Hg] Fermín Bryant DO Work Phone: [facility] 07-31-2024 14:58-0500 Systolic blood pressure 100 mm[Hg] Fermín Bryant DO Work Phone: [facility] 07-04-2024 15:55-0500 Body mass index (BMI) [Ratio] 27.48 kg/m2 [facility] 07-04-2024 15:55-0500 Body weight 72.63 kg [facility] Nurse [facility] 07-04-2024 15:55-0500 Diastolic blood pressure 60 mm[Hg] [facility] Nurse [facility] 07-04-2024 15:55-0500 Systolic blood pressure 110 mm[Hg] [facility] Nurse [facility] 05-31-2023 09:00-0400 Body height 162.56 cm Everett Oliveros Other [facility] Other 05-31-2023 09:00-0400 Body mass index (BMI) [Ratio] 24.54 kg/m2 Everett Oliveros Other [facility] Other 05-31-2023 09:00-0400 Body weight 64.86 kg Everett Oliveros Other [facility] Other 05-31-2023 09:00-0400 Diastolic blood pressure 65 mm[Hg] Everett Oliveros Other [facility] Other 05-31-2023 09:00-0400 Systolic blood pressure 98 mm[Hg] Everett Oliveros Other [facility] Other 11-08-2022 16:15-0400 Body height 162.56 cm Everett Oliveros Other [facility] Other 11-08-2022 16:15-0400 Body mass index (BMI) [Ratio] 25.4 kg/m2 Everett Oliveros Other [facility] Other 11-08-2022 16:15-0400 Body temperature 97.4 [degF] Everett Oliveros Other [facility] Other 11-08-2022 16:15-0400 Body weight 67.13 kg Everett Oliveros Other [facility] Other 11-08-2022 16:15-0400 Diastolic blood pressure 74 mm[Hg] Everett Oliveros Other [facility] Other 11-08-2022 16:15-0400 SaO2% (BldA) [Mass fraction] 99 % Everett Oliveros Other [facility] Other 11-08-2022 16:15-0400 Systolic blood pressure 120 mm[Hg] Everett Oliveros Other [facility] Other 06-12-2022 12:15-0400 Body height 162.56 cm Yolis James Other [facility] Other 06-12-2022 12:15-0400 Body mass index (BMI) [Ratio] 25.74 kg/m2 Yolis James Other [facility] Other 06-12-2022 12:15-0400 Body temperature 98.1 [degF] Yolis James Other [facility] Other 06-12-2022 12:15-0400 Body weight 68.04 kg Yolis James Other [facility] Other 06-12-2022 12:15-0400 Diastolic blood pressure 61 mm[Hg] Yolis James Other [facility] Other 06-12-2022 12:15-0400 Respiratory rate 18 /min Yolis James Other [facility] Other 06-12-2022 12:15-0400 SaO2% (BldA) [Mass fraction] 100 % Yolis James Other [facility] Other 06-12-2022 12:15-0400 Systolic blood pressure 108 mm[Hg] Yolis James Other [facility] Other Encounters Encounter Date Encounter Type Care Provider Facility Start: 12-11-2024 End: 12-11-2024 Clinisync Result Encounter Fermín Bryant DO Work Phone: [facility] External Department Unsolicited Start: 12-11-2024 End: 12-11-2024 Clinisync Result Encounter Fermín Bryant DO Work Phone: [facility] External Department Unsolicited Start: 12-10-2024 End: 12-10-2024 flow sheet Fermín Bryant DO Work Phone: [facility] Comment on above: Third trimester preg eb; 35 weeks gestation of Start: 12-10-2024 End: 12-10-2024 ambulatory FERMÍN BRYANT Not Available Start: 12-10-2024 End: 12-10-2024 Bamboo flowsheet Fermín Bryant DO Work Phone: [facility] Start: 12-10-2024 End: 12-10-2024 Bamboo flowsheet Fermín Bryant DO Work Phone: [facility] Start: 12-04-2024 End: 12-04-2024 Clinisync Result Encounter [...] Unsolicited Start: 11-19-2024 End: 11-19-2024 ambulatory FERMÍN R. BRYANT [facility] Start: 11-12-2024 End: 11-12-2024 flow sheet Fermín [...] Nichols MD Work Phone: [facility] Comment on above: History of bariatric surgery Start: 10-09-2024 End: 10-09-2024 Clinisync Result Encounter Fermín Bryant DO Work Phone: [facility] External Department Unsolicited Start: 10-09-2024 End: 10-09-2024 Clinisync Result Encounter Fermín Bryant DO Work Phone: [facility] External Department Unsolicited Start: 10-08-2024 End: 10-08-2024 ambulatory FERMÍN R. BRYANT [facility] Start: 10-03-2024 End: 10-03-2024 Bamboo [...] Jazmine Black RN [facility] Comment on above: resulting from assisted reproductive technology, second trimester (Primary Dx); Low lying placenta nos or without hemorrhage, second trimester; Advanced maternal age in multigravida, second trimester Start: 09-06-2024 End: 09-06-2024 Office consultation new/estab patient 60 min Ermelinda Nichols MD Work Phone: [facility] Comment on above: resulting from assisted reproductive technology, second trimester (Primary Dx); 21 weeks gestation of ; History of bariatric surgery; Advanced maternal age, 1st , second trimester; Low lying placenta nos or without hemorrhage, second trimester Start: 09-06-2024 End: 09-06-2024 [facility]: 09-04-2024 End: 09-04-2024 flow sheet Fermín [...] Nichols MD Work Phone: [facility] Start: 08-08-2024 End: 08-11-2024 Clinisync Result [...] 05-31-2023 End: 05-31-2023 ambulatory Everett Oliveros Other [facility] Other Start: 05-31-2023 Office outpatient vi sit 15 minutes Everett Oliveros [facility] Start: 01-17-2023 End: 01-25-[address] FERMÍN HURTADO . Facility:[facility] Start: 01-09-2023 End: 01-10-[address] FERMÍN HURTADO . Facility:[facility] Start: 11-26-2022 Letter encounter Luisa Ge APRN[employer] Work Phone: [facility] Start: 11-21-2022 End: 11-21-[address] FERMÍN HURTADO . Facility:[facility] Start: 11-21-2022 End: 11-22-[address] FERMÍN HURTADO . Facility:[facility] Start: 11-08-2022 End: 11-08-2022 ambulatory Everett Oliveros Other [facility] Other Start: 11-08-2022 Office outpatient vi sit 15 minutes Everett Oliveros [facility] Start: 10-11-2022 End: 10-12-[address] FERMÍN HURTADO . Facility:[facility] Start: 09-23-2022 End: 09-24-[address] FERMÍN HURTADO . Facility:[facility] Start: 09-04-2022 Letter encounter Luisa Ge APRN-KNIFE MACHINE OPERATOR Work Phone: [facility] Start: 07-12-2022 End: 07-12-[address] FERMÍN HURTADO . Facility:[facility] Start: 06-29-2022 End: 06-30-[address] FERMÍN HURTADO . Facility:[facility] Start: 06-12-2022 End: 06-12-2022 ambulatory Yolis James Other [facility] Other Start: 06-12-2022 Office outpatient ne w 20 minutes Yolis James [facility] Start: 05-05-[address] FERMÍN HURTADO . Facili ty:H1 Start: 04-27-2022 End: 04-28-[address] FERMÍN HURTADO . Facility:H1 Start: 03-23-2022 End: 03-24-[address] FERMÍN HURTADO . Facility:[facility]1 Start: 02-25-2022 End: 02-26-[address] FERMÍN HURTADO . Facility:[facility]1 Start: 02-24-2022 End: 02-25-[address] NONE LISTED REQUEST Facility: Start: 05-11-2020 ambulatory RoyceAlexia CHIVOBANDAR DANIEL [facility] Start: 11-07-2018 End: 11-08-2018 Emergency department patient visit NO FAMILY DOCTOR NO FAMILY DOCTOR Facility:[facility] Start: 09-21-2017 Emergency department patient visit No Family Physician Facility:[facility] Procedures Date Procedure Procedure Detail Performing Clinician Start: 12-11-2024 US OB BPP W NON-STRESS Fermín Bryant DO Work Phone: Start: 12-10-2024 Urnls dip stick/tabl et rgnt non-auto w/o micrscp Fermín Bryant DO Work Phone: Start: 12-04-2024 US OB BPP W NON-STRESS Fermín Bryant DO Work Phone: Start: 11-27-2024 OB BPP W NON-STRESS Fermín Bryant DO Work Phone: Start: 11-26-2024 Urnls dip stick/tabl et rgnt non-auto w/o micrscp Fermín Bryant DO Work Phone: Start: 11-20-2024 US OB BPP W NON-STRESS [...] in Cervix by Cyto stain Luisa Ge APRN-KNIFE MACHINE OPERATOR Work Phone: Plan of Treatment Date Care Activity Detail Author Start: 2036 Shingles (RZV) Vacci ne (1 of 2) Shingles (RZV) Vaccine (1 of 2) [facility] Start: 07-31-2027 Screening for malign ant neoplasm of cervix Pap Smear [facility] Start: 09-09-2025 End: 09-09-2025 US MFM with or without consult US MFM with or without consult Imaging Routine resulting from assisted reproductive technology, second trimester Low lying placenta nos or without hemorrhage, second trimester Advanced maternal age in multigravida, second trimester Expected: 09/09/2025 (Approximate), Expires: 09/09/2025 [facility] Work Phone: Comment on above: Expected: 09/09/2025 (Approximate), Expires: 09/09/2025 Start: 09-06-2025 Tobacco Screening Tobacco Screening [facility] Start: 12-17-2024 End: 12-17-2024 Patient encounter procedure 12/17/2024 2:30 PM EDT Routine [facility] [address] [place] [id number] Fermín Hurtado, DO [address] [place] [address] [facility] Start: 12-10-2024 End: 12-10-2024 Patient encounter procedure [facility] Comment on above: Arrived Start: 11-26-2024 End: 11-26-2024 Patient encounter procedure 11/26/2024 9:10 AM EDT Routine [facility] [address] [place] [id number] Fermín Hurtado, DO [address] [place] [address] [facility] Start: 11-19-2024 Subsequent hospital visit by physician 11/19/2024 1:00 PM EDT Hospital Encounter [facility] - Ultrasound [address] [place] [id number] [facility] - Ultrasound Start: 11-12-2024 End: 11-12-2025 [...] Routine [facility] [address] [place] [id number] Fermín Hurtado, [address] [place] [address] [facility] Start: 10-29-2024 End: 10-29-2024 Patient encounter procedure [facility] Comment on above: Arrived Start: 10-08-2024 End: 10-08-2024 Patient encounter procedure 10/08/2024 2:15 PM EST Appointment [facility] - Ultrasound [address] [place] [address] [facility] - Ultrasound Start: 10-03-2024 End: 10-03-2025 CBC panel - Blood by Automated count CBC Lab Routine Diabetes mellitus screening Expected: 10/03/2024 (Approximate), Expires: 10/03/2025 [facility] Work Phone: Comment on above: Expected: 10/03/2024 (Approximate), Expires: 10/03/2025 Start: 10-03-2024 End: 10-03-2024 Patient encounter procedure 10/03/2024 11:10 AM EST Routine [facility] [address] [place] [phone] Fermín Hurtado, [address] [place] [address] Arrived [facility] Comment on above: Arrived Start: 10-03-2024 End: 10-03-2024 Patient encounter procedure 10/03/2024 8:50 AM EST Routine [facility] [address] [place] [address] Fermín Hurtado, [address] [place] [address] [facility] Start: 09-06-2024 End: 09-06-2024 Patient encounter procedure [facility] Start: 09-04-2024 End: 09-04-2024 Patient encounter procedure [facility] Comment on above: Arrived Start: 07-31-2024 End: 07-31-2024 Patient encounter procedure [facility] Comment on above: Arrived Start: 07-31-2024 End: 10-01-2024 Alpha fetoprotein, maternal Alpha fetoprotein, maternal Lab Routine Second trimester Well woman exam with routine gynecological exam Expected: 07/31/2024 (Approximate), Expires: 10/01/2024 [facility] Comment on above: Expected: 07/31/2024 (Approximate), Expires: 10/01/2024 Start: 07-31-2024 End: 07-31-2025 US for US OB ANATOMY SINGLE W US OB CERVICAL LENGTH Imaging Routine Screening, , for anatomic survey Expected: 07/31/2024 (Approximate), Expires: 07/31/2025 [facility] Comment on above: Expected: 07/31/2024 (Approximate), Expires: 07/31/2025 Start: 07-04-2024 End: 07-04-2025 ABO/Rh ABO/Rh Lab Routine Missed menses , unspecified gestational age Expected: 07/04/2024 (Approximate), Expires: 07/04/2025 [facility] Comment on above: Expected: 07/04/2024 (Approximate), Expires: 07/04/2025 Start: 07-04-2024 End: 07-04-2025 Blood type and Indirect antibody screen panel - Blood Type and screen Lab Routine Missed menses , unspecified gestational age Expected: 07/04/2024 (Approximate), Expires: 07/04/2025 [facility] Work Phone: Comment on above: Expected: 07/04/2024 (Approximate), Expires: 07/04/2025 Start: 07-04-2024 End: 07-04-2025 Drugs of abuse panel - Urine by Screen method Rapid drug screen, urine Lab Routine , unspecified gestational age Encounter for supervision of normal first in first trimester Expected: 07/04/2024 (Approximate), Expires: 07/04/2025 [facility] Comment on above: Expected: 07/04/2024 (Approximate), Expires: 07/04/2025 Start: 04-28-2024 Influenza vaccination Influenza Vacc ine [facility] Start: 06-26-2023 Tetanus vaccination Tetanus (T d or Tdap) [facility] Start: 07-08-2022 Screening for malign ant neoplasm of cervix Pap Smear [facility] Start: 05-28-2022 Influenza vaccination Influenza Vacc ine (#1) [facility] Start: 2007 Screening for malign ant neoplasm of cervix Pap Smear [facility] Start: 2005 DTaP,Tdap and Td Vaccines (1 - Tdap) DTaP,Tdap and Td Vaccines (1 - Tdap) [facility] Start: 2004 Adult BMI Screening Adult BMI Screen ing [facility] Start: 1998 Depression Screening Depression Scre ening [facility] Start: 1998 Tobacco Screening Tobacco Screening [facility] Start: 02-23-1987 COVID-19 Vaccine (#1) COVID-19 Vacci ne (#1) [facility] Start: 1986 Screening for malign ant neoplasm of breast Mammography shared decision making (35 through 39 years) [facility] Bacteria identified in Urine by Culture Urine culture Microbiology Routine Missed menses Ordered: 07/04/2024 [facility] Comment on above: Ordered: 07/04/2024 CBC W Auto Different ial panel - Blood CBC and differential Lab Routine Missed menses , unspecified gestational age Ordered: 07/04/2024 [facility] Comment on above: Ordered: 07/04/2024 CHLAMYDIA TRACHOMATI S (GENITO/STI) CHLAMYDIA TRACHOMATIS (GENITO/STI) Lab Routine Exposure to STD Ordered: 07/31/2024 [facility] Comment on above: Ordered: 07/31/2024 Cytology Cervical or vaginal smear or scraping study Pap Smear Pathology and Cytology Routine Well woman exam with routine gynecological exam Ordered: 07/31/2024 [facility] Comment on above: Ordered: 07/31/2024 Hemoglobin A1c/Hemoglobin.total in Blood Hemoglobin A1c Lab Routine Missed menses , unspecified gestational age Ordered: 07/04/2024 [facility] Comment on above: Ordered: 07/04/2024 Hepatitis B virus surface Ag [Presence] in Serum or Plasma by Immunoassay Hepatitis B surface antigen Lab Routine Missed menses , unspecified gestational age Ordered: 07/04/2024 [facility] Comment on above: Ordered: 07/04/2024 Hepatitis C virus Ab [Presence] in Serum or Plasma by Immunoassay Hepatitis C antibody Lab Routine Missed menses , unspecified gestational age Ordered: 07/04/2024 [facility] Comment on above: Ordered: 07/04/2024 HIV-1/HIV-2 antigen/antibody combination immunoassay HIV-1 and HIV-2 antibodies Lab Routine Missed menses , unspecified gestational age Ordered: 07/04/2024 [facility] Comment on above: Ordered: 07/04/2024 Human papilloma viru s DNA [Presence] in Unspecified specimen by Probe with amplification HPV DNA probe, amplified Microbiology Routine Well woman exam with routine gynecological exam Ordered: 07/31/2024 [facility] Comment on above: Ordered: 07/31/2024 Neisseria gonorrhoea e DNA [Presence] in Unspecified specimen by SANJU with probe detection Neisseria gonorrhea DNA probe, direct Lab Routine Exposure to STD Ordered: 07/31/2024 [facility] Comment on above: Ordered: 07/31/2024 Reagin Ab [Presence] in Serum by RPR RPR Lab Routine Missed menses , unspecified gestational age Ordered: 07/04/2024 [facility] Comment on above: Ordered: 07/04/2024 Rubella antibody, IgG Rubella an tibody, IgG Lab Routine Missed menses , unspecified gestational age Ordered: 07/04/2024 [facility] Comment on above: Ordered: 07/04/2024 SURESWAB(R) ADVANCED VAGINITIS PLUS, TMA SURESWAB(R) ADVANCED VAGINITIS PLUS, TMA Pathology and Cytology Routine Vaginal discharge Ordered: 07/31/2024 [facility] Work Phone: Comment on above: Ordered: 07/31/2024 Immunizations Immunization Date Immunization Notes Care Provider Ubaldo araujo 10-23-2013 tuberculin skin test ; purified protein derivative solution, intradermal Luisa Joo OFFICE SUPPORT CLERK-KNIFE MACHINE OPERATOR Work Phone: [facility] 06-26-2013 tetanus toxoid, redu thalia diphtheria toxoid, and acellular pertussis vaccine, adsorbed Luisa Joo OFFICE SUPPORT CLERK-KNIFE MACHINE OPERATOR Work Phone: [facility] 05-08-2013 human papilloma viru s vaccine, quadrivalent Luisa Ross OFFICE SUPPORT CLERK-KNIFE MACHINE OPERATOR Work Phone: [facility] 01-10-2013 human papilloma viru s vaccine, quadrivalent Luisa Ross OFFICE SUPPORT CLERK-KNIFE MACHINE OPERATOR Work Phone: [facility] 11-15-2012 human papilloma viru s vaccine, quadrivalent Luisa Ross OFFICE SUPPORT CLERK-KNIFE MACHINE OPERATOR Work Phone: [facility] 10-16-2010 tetanus toxoid, redu thalia diphtheria toxoid, and acellular pertussis vaccine, adsorbed Luisa Ross OFFICE SUPPORT CLERK-KNIFE MACHINE OPERATOR Work Phone: [facility] Payers Date Payer Category Payer [facility] er [id number] 2023 Krish[place] Krishan [facility] Managed Care - Other [id number] 2023 [place] [id number] 2.16.840.1.392466.19 2013 Medicaid [id number] 1986 Unknown [id number] 2.16.840.1.484476.3.579.2. 355 1986 Unknown [id number] 2.16.840.1.317545.3.579.2. 732 1986 Unknown [id number] 2.16.840.1.867119.3.579.2. 593 1986 Unknown [id number] 2.16.840.1.910182.3.579.2. 593 1986 Unknown [id number] 2.16.840.1.706259.3.579.2. 593 1986 Unknown [id number] 2.16.840.1.305332.3.579.2. 593 1986 Unknown [id number] 2.16.840.1.285937.3.579.2. 593 1986 Unknown [id number] 2.16.840.1.078813.3.579.2. 593 1986 Unknown [id number] 2.16.840.1.108326.3.579.2. 593 1986 Unknown [id number] 2.16.840.1.813311.3.579.2. 593 1986 Unknown [id number] 2.16.840.1.239125.3.579.2. 593 1986 Unknown [id number] 2.16.840.1.731734.3.579.2. 593 1986 Unknown [id number] 2.16.840.1.091984.3.579.2. 593 1986 Unknown [id number] 2.16.840.1.195456.3.579.2. 593 1986 Unknown [id number] 2.16.840.1.687234.3.579.2. 593 1986 Unknown [id number] 2.16.840.1.578828.3.579.2. 1286 1986 Unknown [id number] 2.16.840.1.106978.3.579.2. 1286 1986 Unknown [id number] 2.16.840.1.708147.3.579.2. 1286 1986 Unknown [id number] 2.16.840.1.274094.3.579.2. 1286 1986 Unknown [id number] 2.16.840.1.606244.3.579.2. 1259 1986 Unknown [id number] 2.16.840.1.112798.3.579.2. 1259 1986 Unknown [id number] 2.16.840.1.685887.3.579.2. 1259 1986 Unknown [id number] 2.16.840.1.109017.3.579.2. 1259 1986 Unknown [id number] 2.16.840.1.590934.3.579.2. 1259 1986 Unknown [id number] 2.16.840.1.142772.3.579.2. 1259 1986 Unknown [id number] 2.16.840.1.082577.3.579.2. 1259 1986 Unknown [id number] 2.16.840.1.430850.3.579.2. 1259 1959 Medicaid [id number] 1958 Medicaid [id number] 2.16.840.1.541801.19 Social History Date Type Detail Facility Start: 09-06-2024 Sex Assigned At [facility] Start: 10-17-2017 Tobacco smoking status NHIS Ex-smoker [facility] End: 03-28-2017 History of tobacco use Current smoker [facility] End: 03-28-2017 History of tobacco use Cigarette Smoker [facility] Start: 10-17-2017 End: 09-06-2024 Cigarettes smoked current (pack per day) - Reported 0.5 [facility] Start: 10-17-2017 End: 09-06-2024 Tobacco use and exposure Smokeless tobacco non-user [facility] Start: 04-17-2020 Alcohol intake Current drinker of alcohol (finding) [facility] Start: 10-17-2017 Tobacco Comment Patient quit March 2017 [facility] Start: 1985 Sex Assigned At Female [facility] Start: 04-20-2024 [facility] Start: 06-03-2023 Gender identity Identifies as female gender (finding) [facility] Start: 06-03-2023 Sexual orientation Heterosexual (finding) [facility] Start: 09-06-2024 Tobacco smoking status NHIS Never smoked tobacco [facility] Start: 09-06-2024 Alcoholic beverage intake Ex-drinker (finding) [facility] Within the past 12 months we worried whether our food would run out before we got money to buy more. Never True [facility] Start: 1986 Sex assigned at Not on file [facility] Start: 08-06-2024 Sex Female (finding) [facility] Goals Date Patient Goal Desired Activity /State Personal health goal Clinical Notes 06-12-2022 to 12-10-2024 Trupti Gentile LPN - 12/10/2024 2:40 PM Lamar Carter LPN - 11/26/2024 2:30 PM Lamar Carter LPN - 11/12/2024 10:00 AM Mykel Gentile LPN - 10/29/2024 10:10 AM EST Note Date & Type Note Facility 12-10-2024 History of Present illness Narrative Reason for Appointment: Patient ID: Fartun Hall is a 39 y.o. female who presents for Routine Visit Patient presents today for Return OB appointment. MEDICATIONS Current Outpatient Medications Medication Instructions aspirin 81 mg, Daily Continuous Glucose Unattended Ground Sensor Specialist (Dexcom G6 sulfonator operator) device Use as instructed Continuous Glucose Transmitter [...] nursing note reviewed. Exam conducted with a transporter driver present. Vitals: Estimated body mass index is 32.1 kg/m as calculated from the following: Height as of 11/21/22: 5' 4 . Weight as of this encounter: 187 lb. BP: 122/70 No LMP recorded. Patient is . ASSESSMENT & PLAN ICD-10-CM 1. Third trimester Z34.93 POCT urinalysis dipstick manually resulted 2. 35 weeks gestation of Z3A.35 Patient presents today for a routine obstetrics appointment. Patient is currently 35w2d with a Estimated Date of Delivery: 01/12/25. Patient to have GBS at next appointment. Patient has appointment with [facility] next Monday. Dr. Hurtado called over to [facility] to discuss about nursing talking with patient in regards to at her next NST/BPP appointment. Provider informed patient that [facility] will send someone into talk with patient and answer any questions she may have. Patient to return to clinic in 1 weeks for routine OB appointment and GBS cultures. Documented by Trupti Gentile LPN on behalf of: Fermín Hurtado DO documented in this encounter [facility] 11-26-2024 History of Present illness Narrative Reason for Appointment: Patient ID: Fartun Hall is a 39 y.o. female who presents for No chief complaint on file. Patient presents today for Return OB appointment. MEDICATIONS Current Outpatient Medications Medication Instructions aspirin 81 mg, Daily Continuous Glucose Unattended Ground Sensor Specialist (Dexcom G6 sulfonator operator) device Use as instructed Continuous Glucose Transmitter [...] nursing note reviewed. Exam conducted with a transporter driver present. Vitals: Estimated body mass index is [...] Fermín Hurtado DO documented in this encounter [facility] 11-12-2024 History of Present illness Narrative Reason for Appointment: Patient ID: Fartun Hall is a 39 y.o. female who presents for Routine Visit Patient presents today for Return OB appointment. MEDICATIONS Current Outpatient Medications Medication Instructions aspirin 81 mg, Daily Continuous Glucose Unattended Ground Sensor Specialist (Dexcom G6 sulfonator operator) device Use as instructed Continuous Glucose Transmitter [...] nursing note reviewed. Exam conducted with a transporter driver present. Vitals: Estimated body mass index is [...] Fermín Hurtado DO documented in this encounter [facility] 10-29-2024 History of Present illness Narrative Reason for Appointment: Patient ID: Fartun Hall is a 39 y.o. female who presents for Routine Visit Patient presents today for Return OB appointment. MEDICATIONS Current Outpatient Medications Medication Instructions aspirin 81 mg, Daily Continuous Glucose Unattended Ground Sensor Specialist (Dexcom G6 sulfonator operator) device Use as instructed Continuous Glucose Sensor [...] nursing note reviewed. Exam conducted with a transporter driver present. Vitals: Estimated body mass index is [...] noted bilaterally. Patient is currently still seeing [facility] for growth scan/NST/BPP. Patient to return to clinic in 2 weeks and then she will be able to decide if she would like to have NST/BPPs done locally or continue with [facility]. Patient voiced that she is unabl eto put her work shoes on due to swelling and will be taking off work midway through this month. Documented by Trupti Gentile LPN on behalf of: Fermín Hurtado DO documented in this encounter [facility] 10-03-2024 History of Present illness Narrative [...] nursing note reviewed. Exam conducted with a transporter driver present. Vitals: Estimated body mass index is [...] 01/12/25. Patient has follow up US with [facility] to clear heart. Patient will notify office after next [facility] appointment if she would like to [...] obtained supplies she will reach out to [employer] to have device placed on arm, patient was given blood sugar logs to bring to next appointment for review once device is placed. Documented by Trupti Gentile LPN on behalf of: Fermín Hurtado DO documented in this encounter [facility] 09-06-2024 History of Present illness Narrative [...] female Have you been seen here at [facility] in a previous ? No Recent ER visits or hospitalizations? No Bring blood sugar log or meter with you today? (Please bring them with you for every visit at [facility]) n/a Flu vaccine (Jun-October)? No Any [...] 3 Current 2 SAB 2021 5w0d 1 2020 8w0d MEDICAL HISTORY: [...] Allergies CURRENT MEDICATIONS: Current Outpatient Medications: ferrous [id number]-q34-romozpt C-folic acid (FOLTRIN) 110-0.5 mg capsule, Take 1 capsule by mouth every morning before breakfast., Disp: , Rfl: [id number] ( 19) 29 mg iron- 1 [...] TESTS AND ULTRASOUND REPORTS: Referral records and [facility] chart were reviewed Pertinent Ultrasound findings are [...] those pregnancies occurring naturally (1.3% vs 0.7%). [facility] suggest that echocardiogram be offered [...] aspirin vs 10.3% no aspirin, p=0.45) (PMBID: [id number]). Given well-established benefits baby aspirin for the prevention of preeclampsia, I recommend initiating baby aspirin even in the setting of history of Alberto-en-Y surgery. PPI prophylaxis is additionally recommended by bariatric surgeons, 20 mg daily ordered today in addition to aspirin 81 mg daily. Micronutrient Dosing Recommendations: Calcium: recommend 1000-1200mg daily; if deficient, recommend 1800-67726 mg PO daily in divided doses Vitamin [...] ultrasound, attempt completion in 4-6 weeks at [facility] Repeat growth ultrasound along with transvaginal ultrasound to re-evaluate placental location in 11 weeks at 32 weeks gestation, through [facility] Repeat growth ultrasound at 36-37 weeks [...] patient is in complete care of her milking worker. Patient does have ultrasound scheduled with us. Thank you for allowing me to participate in the care of Fartun Hall. If there any questions please do not hesitate to contact us. Ermelinda Nichols MD Maternal- Medicine [facility] [address] [place] [address] [facility], the CDC, and other organizations representing maternal and public health professionals recommend that , , and lactating people and those considering receive the COVID-19 vaccination. Vaccination is the best method to reduce maternal and complications of SARS-CoV-2 infection. This document was created with [employer] technology. Though I make every effort to review the dictation as it is transcribed, on occasion the spoken word can be misinterpreted by the technology leading to inappropriate words, phrases, or sentences. This note is addressed to the requesting provider as a consultation for clinical guidance. Specific medical abbreviations are occasionally used and those are generally approved by the [place]?Board of?Obstetrics and?Gynecology?as well as?Ruth s abbreviations. The above plan of care was based solely on the diagnoses for which a consultation was requested. ?More frequent testing may be indicated based on her other medical/obstetrical conditions. The management of other or medical conditions is beyond the scope of requested consultation and will continue to be followed by the primary milking worker or primary care provider. Note to patient: [...] of the practitioner. documented in this encounter [facility] 09-04-2024 History of Present illness Narrative Reason [...] nursing note reviewed. Exam conducted with a transporter driver present. Vitals: Estimated body mass index is [...] Delivery: 01/12/25. Pt having anatomy scan at [facility] on Monday. Pt has complaints of dry itchy ears. Drops called into pharmacy. Pt to return in 4 weeks for scheduled OB appt. Documented by Patricia Carter LPN on behalf of: Fermín Hurtado DO documented in this encounter [facility] 07-31-2024 History of Present illness Narrative [...] nursing note reviewed. Exam conducted with a transporter driver present. Vitals: Estimated body mass index is [...] Fermín Hurtado DO documented in this encounter [facility] 07-04-2024 History of Present illness Narrative Reason for Appointment: Patient ID: Fartun Hall is a 38 y.o. female who presents for Amenorrhea Patient presents today for a Nurse OB Intake appointment. Patient is 12w4d with a Estimated Date of Delivery: 5/18/25 OB History Para Term AB Living 2 [...] or undercooked meat, and stay away from [facility]. Patient has also been advised to [...] Shannon Farr LPN documented in this encounter [facility] 05-31-2023 Evaluation note Encounter Date Diagnosis Assessment Notes May, Dandruff in adult (ICD-10 - L21.0) Trial of medicated shampoo. Call if no improvement. 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 Will add drop with steroid component. Discussed proper hearing protection - possibly ear muff style. Also discussed ENT referral if needed. Anki Other 10-16-2022 Evaluation note* Encounter Date Diagnosis [...] water inside ear after shower may use foreign languages department chair on lowest cool setting to blow dry. Follow up with PCP or UC if no improvement in the next 2-3 days. Immediate eval for severe ear pain, severe headache, neck pain/stiffness, pain, erythema, or swelling behind the ear, fever, N/V, hearing loss, fever, or any other new or concerning symptoms. Patient verbalizes understanding and is agreeable to treatment plan Anki Other Evaluation note* Diagnosis Missed menses , unspecified gestational age Encounter for supervision of normal first in first trimester documented in this encounter [facility] HealthcareEvaluation note* Diagnosis 16 weeks gestation of Second trimester state, incidental Well woman exam with routine gynecological exam Routine gynecological examination Screening, , for anatomic survey Encounter for anatomic survey Exposure to STD Vaginal discharge Leukorrhea, not specified as infective Ear infection Unspecified otitis media documented in this encounter [facility] HealthcareEvaluation note* Diagnosis Second trimester state, incidental 21 weeks gestation of documented in this encounter [facility] HealthcareEvaluation note* Diagnosis resulting from assisted reproductive technology, second trimester- Primary 21 weeks gestation of History of bariatric surgery Bariatric surgery status Advanced maternal age, 1st , second trimester Low lying placenta nos or without hemorrhage, second trimester documented [facility] Diagnosis resulting from assisted reproductive technology, second trimester- Primary Low lying placenta nos or without hemorrhage, second trimester Advanced maternal age in multigravida, second trimester documented in this encounter [facility]* Diagnosis Diabetes mellitus screening Screening for diabetes mellitus 25 weeks gestation of Second trimester state, incidental History of bariatric surgery Bariatric surgery status resulting from in vitro fertilization, antepartum documented in this encounter [facility] HealthcareEvaluation note* Diagnosis History of bariatric surgery Bariatric surgery status documented in this encounter [facility]* Diagnosis Third trimester state, incidental 29 weeks gestation of documented in this encounter [facility] HealthcareEvaluation note* Diagnosis Third trimester state, incidental 31 weeks gestation of Upper respiratory tract infection, unspecified type History of bariatric surgery Bariatric surgery status resulting from in vitro fertilization, antepartum Multigravida of advanced maternal age in third trimester documented in this encounter [facility] HealthcareEvaluation note* Diagnosis 33 weeks gestation of Third trimester state, incidental documented in this encounter [facility] HealthcareEvaluation note* Diagnosis Third trimester state, incidental 35 weeks gestation of documented in this encounter [...] REPIAR 2017 Hospitalization History SEE SURGICAL HX Anki Other InstructionsNot on filedocumented in this [facility] System[facility] on filedocumented in this encounter [facility] Summary Purpose Family History No Family [...] section and content) DATE CREATED AUTHOR 02/19/2018 [facility] DATE CREATED AUTHOR AUTHOR'S ORGANIZ ATION 11/14/2018 [facility] Healthcare DATE CREATED AUTHOR AUTHOR'S ORGANIZ ATION 09/17/2020 [facility] DATE CREATED AUTHOR AUTHOR'S ORGANIZ ATION 12/23/2020 [facility] DATE CREATED AUTHOR AUTHOR'S ORGANIZ ATION 10/21/2021 [facility] DATE CREATED AUTHOR AUTHOR'S ORGANIZ ATION 02/03/2023 [facility] DATE CREATED AUTHOR AUTHOR'S ORGANIZ ATION 09/11/2024 [facility] DATE CREATED AUTHOR AUTHOR'S ORGANIZ ATION 11/20/2024 [facility] DATE CREATED AUTHOR AUTHOR'S ORGANIZ ATION 12/12/2024 [facility] dical Specialists EPIC REASON FOR VISIT (unrecogniz ed section and content) Reason Comments Amenorrhea Reason Comments Routine Visit Reason Comments ama Fertility Preservation Reason Comments Med Change Request Care Teams (unrecognized sec tion and content) Site Supervising Technical Operator Relationship Specialty Start Date End Date Luisa GeYOHAN-KNIFE MACHINE OPERATOR [address] [place] [phone] FRESH FOODS CLERK Pulmonary Medicine 06/02/20 Jamie Hardin MD [address] [place] [address] Physician General Surgery 06/02/20 Page Faulkner M.Ed., R.D., L.D. [address] [address] Dietitian Nutrition 06/02/20 Rita Catherine MD [address] [place] [address] Physician Obstetrics/Gynecology 06/02/20 Rishabh Hi, OFFICE SUPPORT CLERK-KNIFE MACHINE OPERATOR [address] [place] [address] FRESH FOODS CLERK Anesthesiology 06/02/20 Site Supervising Technical Operator Relationship Specialty Start Date End Date Luisa GeYOHAN-KNIFE MACHINE OPERATOR [address] [place] [address] FRESH FOODS CLERK Pulmonary Medicine 06/02/20 Jamie Hardin MD [address] [place] [address] Physician General Surgery 06/02/20 Page Faulkner M.Ed., R.D., L.D. [address] [address] Dietitian Nutrition 06/02/20 Rita Catherine MD [address] [place] [address] Physician Obstetrics/Gynecology 06/02/20 Rishabh Hi, OFFICE SUPPORT CLERK-KNIFE MACHINE OPERATOR [address] [place] [address] FRESH FOODS CLERK Anesthesiology 06/02/20 Site Supervising Technical Operator Relationship Specialty Start Date End Date Everett Oliveros MD [address] [facility] [place] [phone] PCP - General Family Medicine 03/29/23 Site Supervising Technical Operator Relationship Specialty Start Date End Date Everett Oliveros MD [address] [facility] [place] [phone] PCP - General Family Medicine 03/29/23 Site Supervising Technical Operator Relationship Specialty Start Date End Date Everett Oliveros MD [address] [facility] [place] [address] PCP - General Family Medicine 03/29/23 Site Supervising Technical Operator Relationship Specialty Start Date End Date Everett Oliveros MD [address] [facility] [place] [phone] PCP - General Family Medicine 03/29/23 Site Supervising Technical Operator Relationship Specialty Start Date End Date Everett Oliveros MD [address] [facility] [place] [phone] PCP - General Family Medicine 03/29/23 Site Supervising Technical Operator Relationship Specialty Start Date End Date Everett Oliveros MD [address] [facility] [place] [phone] PCP - General Family Medicine 03/29/23 Site Supervising Technical Operator Relationship Specialty Start Date End Date Everett Oliveros MD [address] [facility] [place] [address] PCP - General Family Medicine 03/29/23 Site Supervising Technical Operator Relationship Specialty Start Date End Date Everett Oliveros MD [address] [facility] [place] [address] PCP - General Family Medicine 03/29/23 Site Supervising Technical Operator Relationship Specialty Start Date End Date Everett Oliveros MD [address] [facility] [place] [address] PCP - General Family Medicine 03/29/23 Site Supervising Technical Operator Relationship Specialty Start Date End Date Everett Oliveros MD [address] [facility] [place] [address] PCP - General Family Medicine 03/29/23 Site Supervising Technical Operator Relationship Specialty Start Date End Date Everett Oliveros MD [address] [facility] [place] [address] PCP - General Family Medicine 03/29/23 Site Supervising Technical Operator Relationship Specialty Start Date End Date Everett Oliveros MD [address] [facility] [place] [address] PCP - General Family Medicine 03/29/23 Site Supervising Technical Operator Relationship Specialty Start Date End Date Everett Oliveros MD [address] [facility] [place] [address] PCP - General Family Medicine 03/29/23 Site Supervising Technical Operator Relationship Specialty Start Date End Date Everett Oliveros MD [address] [facility] [place] [address] PCP - General Family Medicine 03/29/23 Site Supervising Technical Operator Relationship Specialty Start Date End Date Everett Oliveros MD PCP - [facility] 03/29/23 Site Supervising Technical Operator Relationship Specialty Start Date End Date Everett Oliveros MD PCP - [facility] 03/29/23 FOR RECORDS PERTAINING TO PATIENTS [...] BE BASED ON THE PRIMARY CLINICAL RECORDS. [facility] [employer] [facility]. provides no warranty or guarantee of the accuracy or completeness of information in this document.
[2024-12-14 11:03] VITALS: BP 134/81; PULSE 67
== END 2024-12-14 11:36 | disposition home or self-care (01) ==
LOC: FBCO 10:57 → FBC 10:58
PROVIDERS: PCP Family Medicine; Visit Provider Obstetrics & Gynecology
DX: O09.519 Supervision of elderly primigravida, unspecified trimester (principal)
CPT/HCPCS: 59025

== ENCOUNTER 2024-12-17 19:58 | Outpatient (REF) | payer BC, SELFPAY | END 2024-12-17 19:59 | disposition home or self-care (01) | LOC: LAB 19:58 | PROVIDERS: PCP Family Medicine; Visit Provider Obstetrics & Gynecology | DX: Z34.93 Encounter for supervision of normal pregnancy, unspecified, third trimester (principal) | CPT/HCPCS: 36415; 87081 ==

== ENCOUNTER 2024-12-18 10:56 | Outpatient (OUT) | payer BC, SELFPAY ==
--- NOTE | 2024-12-18 | US_ITS ---
[address] [address] Patient Name: FARTUN HALL MRN: [id number] date: 1985 Sex: F Assigned Patient Location: [facility] Current Patient Location: Accession/Order Number: [id number] Exam Date: 12/18/2024 12:42 Report Date: 12/18/2024 12:43 At the request of: ANA PAULA JOHN DO Procedure: US OB BPP w non-stress Ultrasound obstetrical biophysical profile HISTORY: History of bariatric surgery. There is adequate breathing movement, gross body movement, tone and amniotic fluid volume for total score of 8 out of 8. The amniotic fluid index is 15.5 cm within normal limits. heart rate is 165 bpm. US/US OB BPP w non-stress IMPRESSION: Adequate biophysical profile Impression dictated by: Ricco Stewart M.D.12/18/2024 12:43 PM Dictation Location: [place] [address] Electronically authenticated by: [id number] Y Date: 12/18/2024 12:43
[2024-12-18 11:32] VITALS: BP 129/71; PULSE 65
== END 2024-12-18 12:05 | disposition home or self-care (01) ==
LOC: US 10:57 → FBC 10:59
PROVIDERS: PCP Family Medicine; Visit Provider Obstetrics & Gynecology
DX: O09.513 Supervision of elderly primigravida, third trimester (principal); Z3A.36 36 weeks gestation of pregnancy; Z98.84 Bariatric surgery status
CPT/HCPCS: 76818

== ENCOUNTER 2024-12-21 10:50 | Outpatient (OUT) | payer BC, SELFPAY ==
[2024-12-21 10:58] VITALS: BP 109/57; PULSE 72
== END 2024-12-21 11:35 | disposition home or self-care (01) ==
LOC: FBCO 10:50 → FBC 10:52
PROVIDERS: PCP Family Medicine; Visit Provider Obstetrics & Gynecology
DX: O09.513 Supervision of elderly primigravida, third trimester (principal); Z3A.37 37 weeks gestation of pregnancy
CPT/HCPCS: 59025

== ENCOUNTER 2024-12-25 13:03 | Outpatient (OUT) | payer BC, SELFPAY ==
--- NOTE | 2024-12-25 | US_ITS ---
[address] [address] Patient Name: FARTUN HALL MRN: [id number] date: 1985 Sex: F Assigned Patient Location: [place] Current Patient Location: [place] Accession/Order Number: [id number] Exam Date: 12/25/2024 11:53 Report Date: 12/25/2024 11:53 At the request of: ANA PAULA JOHN DO Procedure: US OB BPP w non-stress Biophysical profile. Reason for exam: Advanced maternal age. History of bariatric surgery. COMPARISON: 12/18/2024 TECHNIQUE: Transabdominal imaging of the gravid uterus was obtained. FINDINGS: Cat Tender reports a BPP of 8 out of 8. CYNTHIA is normal at 14.2cm. heart rate 138bpm. US/US OB BPP w non-stress IMPRESSION: BPP 8 out of 8. Impression dictated by: Corey Fregoso Jr., D.O. 12/25/2024 11:53 AM [facility]ictation [facility] Electron[facility] authenticated by: [id number] Y Date: 12/25/2024 11:53
[2024-12-25 13:40] VITALS: BP 134/62; PULSE 68
== END 2024-12-25 13:50 | disposition home or self-care (01) ==
LOC: US 13:30 → FBC 13:31
PROVIDERS: PCP Family Medicine; Visit Provider Obstetrics & Gynecology
DX: O09.513 Supervision of elderly primigravida, third trimester (principal); Z3A.37 37 weeks gestation of pregnancy
CPT/HCPCS: 76818

== ENCOUNTER 2024-12-28 11:42 | Inpatient (IN) | payer BC, SELFPAY ==
[2024-12-28] VITALS (24 sets, daily range): BP systolic 118–149; BP diastolic 57–79; PULSE 54–80; TEMP 35.7–36.8
[2024-12-28 13:04] LABS: Basophils Absolute Auto 0.1 10^3/uL (0.0-0.1); Basophils Percent Auto 0.6 % (0.2-2.0); Eosinophils Absolute Auto 0.1 10^3/uL (0.0-0.7); Eosinophils Percent Auto 0.7 % (0.9-7.0); Hematocrit 34.2 % (36.0-48.0); Hemoglobin 10.5 g/dL (12.0-16.0); Immature Granulocytes Abs Auto 0.03 10^3/uL (0.00-0.03); Immature Granulocytes Pct Auto 0.3 % (0.0-0.5); Lymphocytes Absolute Auto 2.6 10^3/uL (1.2-3.8); Lymphocytes Percent Auto 25.9 % (20.5-60.0); Mean Corpuscular HGB Conc 30.7 g/dL (29.9-35.2); Mean Corpuscular Hemoglobin 23.6 pg (26.7-34.0); Mean Corpuscular Volume 76.9 fL (81.0-99.0); Mean Platelet Volume 12.7 fL (9.5-13.5); Monocytes Absolute Auto 0.7 10^3/uL (0.3-0.8); Monocytes Percent Auto 6.7 % (1.7-12.0); Neutrophils Absolute Auto 6.6 10^3/uL (1.4-6.5); Neutrophils Percent Auto 65.8 % (43.0-75.0); Platelet Count 362 10^3/uL (150-450); Red Blood Count 4.45 10^6/uL (4.20-5.40); Red Cell Distribution Width 15.7 % (11.0-15.0)
[2024-12-28 13:12] LABS: Bilirubin Urine NEGATIVE (NEGATIVE); Blood Urine NEGATIVE (NEGATIVE); Clarity Urine CLEAR (CLEAR); Color Urine LT. YELLOW (YELLOW); Glucose Urine UA NEGATIVE (NEGATIVE); Ketones Urine NEGATIVE (NEGATIVE); Leukocyte Esterase Urine NEGATIVE (NEGATIVE); Nitrite Urine NEGATIVE (NEGATIVE); Protein Urine NEGATIVE (NEG/TRACE); Specific Gravity Urine 1.015 (1.005-1.025); Urobilinogen Urine 0.2 EU/dL (0.2-1.0); pH Urine 6.5 (5.0-9.0)
[2024-12-28 13:13] LABS: Protein Creatinine Ratio Urine 0.23; Total Protein Urine Random 27.9 mg/dL (<=11.9)
[2024-12-28 13:15] LABS: Alanine Aminotransferase 10 U/L (14-59); Aspartate Amino Transferase 17 U/L (15-37); Estimated GFR (African America >60 (>=60 mL/min/1.73m^2); Estimated GFR (Non-African Ame >60 (>=60 mL/min/1.73m^2); Uric Acid 5.9 mg/dL (2.6-6.0)
[2024-12-28 13:15] LABS: Urine Microscopic Indicated NO
[2024-12-28 13:21] LABS: Amphetamine Screen Urine NEGATIVE (NEGATIVE); Barbiturates Screen Urine NEGATIVE (NEGATIVE); Benzodiazepines Screen Urine NEGATIVE (NEGATIVE); Buprenorphine Screen Urine NEGATIVE (NEGATIVE); Cannabinoid Screen Urine NEGATIVE (NEGATIVE); Cocaine Screen Urine NEGATIVE (NEGATIVE); Methadone Screen Urine NEGATIVE (NEGATIVE); Methamphetamines Screen Urine NEGATIVE (NEGATIVE); Opiate Screen Urine NEGATIVE (NEGATIVE); Oxycodone Screen Urine NEGATIVE (NEGATIVE); Phencyclidine Screen Urine NEGATIVE (NEGATIVE); Tricyclic Antidepressant Urine NEGATIVE (NEGATIVE)
[2024-12-28 13:24] LABS: Partial Thromboplastin Time 22.7 sec (22.3-36.2); Prothrombin Time 9.1 sec (9.0-11.6)
[2024-12-28 13:33] LABS: INR <0.93
[2024-12-28 13:34] LABS: Fibrinogen 504 mg/dL (200-400)
[2024-12-28] MEDS: LABETALOL HCL 100 MG TABLET PO (15:25)
--- NOTE | 2024-12-28 19:46 | PC.NURSE ---
Brachial absent; patellar +1
[2024-12-28] MEDS: MISOPROSTOL 100 MCG TABLET 25 MCG VAGINAL ×2 (20:15→23:14)
--- NOTE | 2024-12-28 20:18 | PC.NURSE ---
[id number]; See paper FHR/UC documentation due to equipment failure. Paper strip recording FHR/UC and VS.
--- NOTE | 2024-12-28 20:19 | PC.NURSE ---
1215; RN at bedside at this time. Initiation of physician orders being completed at this time. RN discusses plan of care at this time. Pain management options discussed with patient and education provided. Admission questions asked prophylactically. 1228; IV placement at this time per Ragini Cohen RN. See IV assessment documentation in worklist.
--- NOTE | 2024-12-28 20:27 | PC.NURSE ---
1330- Pt removed from FHR/UC at this time. Active movement per pt. Category 1 tracing. Pt given birthing ball at this time and ambulation encouraged.
--- NOTE | 2024-12-28 20:36 | PC.NURSE ---
[id number]; Pt removed from R/UC monitors per physician order.
--- NOTE | 2024-12-28 20:41 | PC.NURSE ---
[id number]; Pt off the FHR/UC monitors per . Active movement per pt.
--- NOTE | 2024-12-28 20:48 | PC.NURSE ---
[id number]; pt removed from monitor per order at this time.
--- NOTE | 2024-12-28 20:57 | W.PC.ACHO ---
Registration Status: ADM IN Primary Language: Surinamese Preferred Language: Surinamese Report given to Darby HARP. Care relinquished at 1915. Active Medications Generic Name Dose Route Start Last Admin Trade Name Oswaldo PRN Reason Stop Dose Admin Carboprost Tromethamine 250 mcg 12/28/24 14:12 Carboprost Tromethamine 250 Mcg/Ml 1 Ml Vial IM 12/30/24 14:12 Q15M PRN Bleeding Diphenhydramine HCl 25 mg 12/28/24 14:21 Diphenhydramine Hcl 50 Mg/Ml Vial IV 12/29/24 14:22 Q6H PRN Itching Ephedrine Sulfate 5 mg 12/28/24 14:21 Ephedrine Sulfate 50 Mg/Ml Vial IV 12/29/24 14:22 Q5M PRN Blood Pressure - Low Fentanyl Citrate 100 mcg 12/28/24 14:21 Fentanyl Citrate/Pf 100 Mcg/2 Ml Vial EPIDURAL ONCE PRN epidural Fentanyl Citrate 100 mcg 12/28/24 14:21 Fentanyl Citrate/Pf 100 Mcg/2 Ml Vial EPIDURAL ONCE PRN epidural Tranexamic Acid 1,000 mg/ 110 mls @ 440 mls/hr 12/28/24 14:12 Sodium Chloride IV 12/30/24 14:12 ONCE PRN Uterine Bleeding Sodium Chloride 1,000 mls @ 125 mls/hr 12/28/24 14:30 Sodium Chloride 0.9% 1,000 Ml IV .Q8H NATALIE Oxytocin/Sodium Chloride 10 units in 500 mls @ 6 mls/hr 12/29/24 06:00 Pitocin 10 Unit/500 Ml-Ns IV TITR NATALIE Protocol 2 MILLIUNIT/MIN Oxytocin/Sodium Chloride 20 units in 1,000 mls @ 125 mls/hr 12/28/24 14:12 Pitocin 20 Unit/1,000 Ml-Ns IV Q8H PRN POST DELIVERY Ropivacaine/Sodium Chloride 400 mg in 200 mls @ 6 mls/hr 12/28/24 14:30 Naropin 0.2% 400 Mg/200 Ml Bag EPIDURAL Q24H NATALIE Ampicillin 2,000 mg/ Sodium 100 mls @ 200 mls/hr 12/29/24 06:00 Chloride IV 12/29/24 06:29 ONCE ONE Ampicillin 1,000 mg/ Sodium 50 mls @ 100 mls/hr 12/29/24 10:00 Chloride IV Q4H NATALIE Labetalol HCl 100 mg 12/28/24 14:30 12/28/24 15:25 Labetalol Hcl 100 Mg Tablet PO 100 mg BID NATALIE Administration Lidocaine 5 ml 12/28/24 14:12 Lidocaine Viscous 2% 15 Ml Solution TOPICAL 12/30/24 14:14 ONCE PRN Pain Lidocaine 1 ml 12/28/24 14:12 Lidocaine Hcl 1% 200 Mg/20 Ml Mdv INJ 12/30/24 14:14 ONCE PRN Pain Lidocaine 5 ml 12/28/24 14:21 Lidocaine Hcl 2% Pf 100 Mg/5 Ml Vial INJ 12/29/24 14:21 Q1H PRN Epidural Methylergonovine Maleate 0.2 mg 12/28/24 14:12 Methylergonovine Maleate 0.2 Mg/Ml Ampule IM 12/30/24 14:12 ONCE PRN Uterine Contractility/Contract Methylergonovine Maleate 0.2 mg 12/28/24 14:12 Methylergonovine Maleate 0.2 Mg Tablet PO 12/30/24 14:12 Q4H PRN Uterine Contractility/Contract Misoprostol 600 mcg 12/28/24 14:12 Misoprostol 100 Mcg Tablet PO 12/30/24 14:12 ONCE PRN Uterine Bleeding Misoprostol 800 mcg 12/28/24 14:12 Misoprostol 100 Mcg Tablet SL 12/30/24 14:12 ONCE PRN Uterine Bleeding Misoprostol 1,000 mcg 12/28/24 14:12 Misoprostol 100 Mcg Tablet DC 12/30/24 14:12 ONCE PRN Uterine Bleeding Misoprostol 25 mcg 12/28/24 20:00 12/28/24 20:15 Misoprostol 100 Mcg Tablet VAGINAL 12/29/24 02:01 25 mcg Q3H NATALIE Administration Nalbuphine HCl 10 mg 12/28/24 14:12 Nalbuphine Hcl 10 Mg/Ml Ampule IV Q3H PRN Pain Scale 4-6 Naloxone HCl 0.4 mg 12/28/24 14:21 Naloxone Hcl 0.4 Mg/Ml Vial IV 12/29/24 14:22 ONCE PRN Respiratory Distress Ondansetron HCl 4 mg 12/28/24 14:12 Ondansetron Pf 4 Mg/2 Ml Vial IV Q6H PRN Nausea And Vomiting Ondansetron HCl 4 mg 12/28/24 14:12 Ondansetron 4 Mg Rapdis Tablet SL Q6H PRN Nausea And Vomiting Oxytocin 10 unit 12/28/24 14:12 Oxytocin 10 Unit/Ml Vial IM 12/30/24 14:12 ONCE PRN Bleeding Diet Category Date Time Status Regular Consistency Diet Diet 12/28/24 13:22 Active IV Insertion/Site Date of IV Line Insertion [ 12/28/24 Short PIV (<1.75 in) 22g left Hand] Date of IV Line Insertion [ 12/28/24 Short PIV (<1.75 in) 20g right Antecubital] IV Insertion Time [Short PIV ( 17:40 <1.75 in) 22g left Hand] IV Insertion Time [Short PIV ( 12:28 <1.75 in) 20g right Antecubital] Neurology Patient orientation (short person,place,time,situation list)
[2024-12-29] VITALS (46 sets, daily range): BP systolic 101–165; BP diastolic 53–84; PULSE 53–93; TEMP 36.1–36.9
[2024-12-29] MEDS: LABETALOL HCL 100 MG TABLET PO ×3 (02:12→21:41)
[2024-12-29] MEDS: MISOPROSTOL 100 MCG TABLET 25 MCG VAGINAL (02:16)
[2024-12-29] MEDS: 0.9 % SODIUM CHLORIDE 1,000 ML 1000 ML IV (06:33)
[2024-12-29] MEDS: OXYTOCIN/0.9 % SODIUM CHLORIDE 10 UNITS/500 ML PLAST..BAG 6 UNIT IV (06:33)
[2024-12-29] MEDS: AMPICILLIN SODIUM 2,000 MG in 0.9 % SODIUM CHLORIDE 100 ML 200 MG IV (06:35)
[2024-12-29] MEDS: AMPICILLIN SODIUM 1,000 MG in 0.9 % SODIUM CHLORIDE 50 ML 100 MG IV ×4 (09:36→21:42)
[2024-12-29] MEDS: 0.9 % SODIUM CHLORIDE 1,000 ML 125 ML IV ×2 (15:27→20:05)
[2024-12-29] MEDS: NALBUPHINE HCL 10 MG/ML AMPULE IV (17:35)
[2024-12-29] MEDS: OXYTOCIN/0.9 % SODIUM CHLORIDE 10 UNITS/500 ML PLAST..BAG 60 UNIT IV (20:05)
[2024-12-29] MEDS: ROPIVACAINE HCL/PF 400 MG/200 ML PREMIX 10 MG EPIDURAL (23:12)
[2024-12-30] VITALS (13 sets, daily range): BP systolic 96–127; BP diastolic 53–58; PULSE 56–79; TEMP 35.9–37.1
[2024-12-30] MEDS: 0.9 % SODIUM CHLORIDE 1,000 ML 999 ML IV (00:04)
[2024-12-30] MEDS: OXYTOCIN/0.9 % SODIUM CHLORIDE 20 UNITS/1,000 ML PLAST..BAG 125 UNIT IV (00:04)
--- NOTE | 2024-12-30 00:11 | PM.OBPRCVD ---
Procedure Intrapartal events: None Induction method: per misoprostol protocol Delivery augmentation: rupture of membranes and pitocin Delivery monitor: external FHT and external uterine Route of delivery: Episiotomy Description: none L&D Laceration Description: none Estimated blood loss (mL): 350 Anesthesia type: Epidural Disposition: floor Delivery date: 12/30/24 Gender: female presentation: vertex Placental delivery description: Spontaneous cord description: 3 Vessels
[2024-12-30] MEDS: LABETALOL HCL 100 MG TABLET PO ×2 (09:11→23:58)
--- NOTE | 2024-12-30 19:51 | W.PC.ACHO ---
Registration Status: ADM IN Primary Language: Mosotho Preferred Language: Mosotho Report given to Kalpana 1910. Care relinquished. Active Medications Generic Name Dose Route Start Last Admin Trade Name Oswaldo PRN Reason Stop Dose Admin Acetaminophen 650 mg 12/30/24 00:12 Acetaminophen 325 Mg Tablet PO Q6H PRN Mild Pain Al Hydroxide/Mg Hydroxide 2,400 mg 12/30/24 00:12 Magnesium Hydroxide 2,400 Mg/10 Ml Oral.Susp PO Q6H PRN Dyspepsia Benzocaine/Menthol 1 applic 12/30/24 00:12 Benzocaine/Menthol 85 Gram Harbert Bottle TOPICAL Q2H PRN Pain Diphtheria/Pertussis/Tetanus Vacc 0.5 ml 01/01/25 09:00 Adacel Diph,Pertuss(Acell),Tet Vac/Pf 0.5 Ml Adult Syringe IM 01/01/25 09:01 .ONCE ONE Docusate Sodium 100 mg 12/31/24 09:00 Docusate Sodium 100 Mg Capsule PO BID NATALIE Sodium Chloride 1,000 mls @ 125 mls/hr 12/28/24 14:30 12/30/24 00:10 Sodium Chloride 0.9% 1,000 Ml IV Infused .Q8H NATALIE Infusion Ibuprofen 600 mg 12/30/24 00:12 Ibuprofen 600 Mg Tablet PO Q6H PRN Moderate Pain Labetalol HCl 100 mg 12/28/24 14:30 12/30/24 09:11 Labetalol Hcl 100 Mg Tablet PO 100 mg BID NATALIE Administration Measles/Mumps/Rubella Vaccine Live 0.5 ml 01/01/25 09:00 Measles,Mumps,Rubella Vacc/Pf 0.5 Ml Vial SQ 01/01/25 09:01 .ONCE ONE Ondansetron HCl 4 mg 12/28/24 14:12 Ondansetron Pf 4 Mg/2 Ml Vial IV Q6H PRN Nausea And Vomiting Ondansetron HCl 4 mg 12/28/24 14:12 Ondansetron 4 Mg Rapdis Tablet SL Q6H PRN Nausea And Vomiting Senna 17.2 mg 12/30/24 20:00 Sennosides 8.6 Mg Tablet PO QHS PRN Constipation Simethicone 80 mg 12/30/24 00:12 Simethicone 80 Mg Tab.Chew PO QID PRN Abdominal Distention Temazepam 15 mg 12/30/24 00:12 Temazepam 15 Mg Capsule PO QHS PRN Sleep Witch Eve/Glycerin 1 pad 12/30/24 00:12 Glycerin/Witch Eve Pads TOPICAL Q2H PRN Pain Diet Category Date Time Status Regular Consistency Diet Diet 12/30/24 00:12 Active Respiratory Oxygen Delivery Method Room Air Oxygen Delivery Method Room Air Oxygen Delivery Method Room Air Cardiology Heart Sounds Regular Renal Bladder Pattern Continent Bladder Pattern Continent Catheter Urinary Catheter Date of 12/29/24 Insertion [Straight] Urinary Catheter Time of 23:45 Insertion [Straight]
[2024-12-31 01:44] VITALS: BP 127/69; PULSE 55
[2024-12-31 01:45] VITALS: TEMP 36.8
[2024-12-31 06:51] LABS: Basophils Absolute Auto 0.1 10^3/uL (0.0-0.1); Basophils Percent Auto 0.6 % (0.2-2.0); Eosinophils Absolute Auto 0.1 10^3/uL (0.0-0.7); Eosinophils Percent Auto 1.4 % (0.9-7.0); Hematocrit 30.7 % (36.0-48.0); Hemoglobin 9.6 g/dL (12.0-16.0); Immature Granulocytes Abs Auto 0.04 10^3/uL (0.00-0.03); Immature Granulocytes Pct Auto 0.4 % (0.0-0.5); Lymphocytes Absolute Auto 3.7 10^3/uL (1.2-3.8); Mean Corpuscular HGB Conc 31.3 g/dL (29.9-35.2); Mean Corpuscular Hemoglobin 23.9 pg (26.7-34.0); Mean Corpuscular Volume 76.4 fL (81.0-99.0); Mean Platelet Volume 12.4 fL (9.5-13.5); Monocytes Absolute Auto 0.7 10^3/uL (0.3-0.8); Monocytes Percent Auto 6.9 % (1.7-12.0); Neutrophils Absolute Auto 5.1 10^3/uL (1.4-6.5); Neutrophils Percent Auto 52.7 % (43.0-75.0); Platelet Count 329 10^3/uL (150-450); Red Blood Count 4.02 10^6/uL (4.20-5.40); Red Cell Distribution Width 15.9 % (11.0-15.0); White Blood Count 9.6 10^3/uL (4.0-11.0)
--- NOTE | 2024-12-31 08:54 | P.OBPN_ITS ---
OB - PN: Subj Subjective Patient comments: no complaints Cornell status: doing well feeding status: exclusively Exam Constitutional Vital Signs, click to edit/add: Last Vital Signs Temp 98.2 F 12/31/24 01:45 Pulse 55 L 12/31/24 01:44 Resp 15 12/31/24 01:45 BP 127/69 12/31/24 01:44 O2 Del Method Room Air 12/31/24 01:45 Documenting provider has reviewed patient's vital signs: yes Common normals: no apparent distress Exam limitations: altered mental status General appearance: cooperative, comfortable, well kempt and well developed Orientation/consciousness: Yes awake, Yes oriented to person, Yes oriented to place and Yes oriented to time HENMT Common normals: normocephalic Eye Common normals: EOMs intact bilaterally General eye: normal appearance of both eyes Neck & C-Spine Common normals: full ROM and no lymphadenopathy General: normal visual inspection Lymph Lymphatic: no lymphadenopathy noted Chest Common normals: inspection of chest normal Respiratory Common normals: normal respiratory effort, no retractions, no use of accessory muscles and clear to auscultation bilaterally Effort & inspection: able to speak in complete sentences Auscultation: clear to auscultation bilaterally Cardio Common normals: regular rate and regular rhythm Rate: regular rate Rhythm: regular rhythm GI Common normals: Normal to inspection, nondistended, normoactive bowel sounds present Inspection: normal to inspection Auscultation: normoactive bowel sounds Palpation: soft, firm, tender and guarding Common normals: no CVA tenderness Back & Pelvis Common normals: no CVA tenderness Lumbar spine/lower back: normal to inspection Extremity Common normals: normal to inspection and full ROM Neuro Common normals: oriented x3 Sensorium/orientation: awake, alert, oriented to person, oriented to place and oriented to time Psych Common normals: mental status grossly normal, thought process normal, cooperative, affect normal, speech normal, activity/motor behavior normal, denies hallucinations, denies homicidal ideation and denies suicidal ideation Appearance: grossly normal Attitude: calm Activity/motor behavior: appropriate eye contact Speech: normal speech Thought process: normal thought process Results Labs Labs: Short CBC 12/31/24 Range/Units 06:24 WBC 9.6 (4.0-11.0) 10^3/uL Hgb 9.6 L (12.0-16.0) g/dL Hct 30.7 L (36.0-48.0) % Plt Count 329 (150-450) 10^3/uL Urinary Catheter Management Urinary Catheter Management Straight: Cath placed during this visit: yes Urethral indwelling: No Insertion date: 12/29/24 Insertion time: 23:45 OB - PN: A/P Plan - Vaginal Delivery day: 1 Plan: routine care Time Spent with Patient Time: Total time spent is greater than 50% in coordination of care (as documented) at patient's floor/unit and/or counseling patient: Total time spent with greater than 50% in coordination of care (as documented) at patient's floor/unit and/or counseling patient: less than 15 minutes
[2024-12-31 09:07] VITALS: BP 135/63; PULSE 54; TEMP 36.3
[2024-12-31] MEDS: LABETALOL HCL 100 MG TABLET PO ×2 (09:08→21:13)
[2024-12-31] MEDS: DOCUSATE SODIUM 100 MG CAPSULE PO (09:08)
[2024-12-31 17:17] VITALS: BP 172/77; PULSE 60
[2024-12-31 21:13] VITALS: BP 137/68; PULSE 60
[2025-01-01 01:53] VITALS: BP 118/54; PULSE 53; TEMP 36.6
--- NOTE | 2025-01-01 07:39 | PM.OBPN ---
OB - PN: Subj Subjective Patient comments: no complaints and pain well controlled Maljamar status: doing well Exam Constitutional Vital Signs, click to edit/add: Last Vital Signs Temp 97.9 F 01/01/25 01:53 Pulse 53 L 01/01/25 01:53 Resp 18 12/31/24 09:07 BP 118/54 01/01/25 01:53 O2 Del Method Room Air 01/01/25 01:50 Documenting provider has reviewed patient's vital signs: yes Common normals: no apparent distress Respiratory Common normals: normal respiratory effort and clear to auscultation bilaterally Cardio Common normals: regular rate and regular rhythm GI Common normals: Normal to inspection, nondistended, normoactive bowel sounds present Extremity Common normals: no clubbing, cyanosis or edema and no calf tenderness Urinary Catheter Management Urinary Catheter Management Straight: Cath placed during this visit: yes Urethral indwelling: No Insertion date: 12/29/24 Insertion time: 23:45 OB - PN: A/P Plan - Vaginal Delivery day: 2 Plan: routine care, discharge home and follow up 6 weeks Time Spent with Patient Time: Total time spent is greater than 50% in coordination of care (as documented) at patient's floor/unit and/or counseling patient: Total time spent with greater than 50% in coordination of care (as documented) at patient's floor/unit and/or counseling patient: less than 15 minutes
[2025-01-01] MEDS: LABETALOL HCL 100 MG TABLET PO (08:51)
[2025-01-01 09:36] VITALS: BP 143/66; PULSE 54
[2025-01-01 14:27] VITALS: TEMP 36.7
[2025-01-01] MEDS: MEASLES,MUMPS,RUBELLA VACC/PF 0.5 ML VIAL SQ (17:23)
== END 2025-01-01 17:43 | disposition home or self-care (01) | DRG 807 ==
LOC: FBCO 12:16 → FBC 12:17
PROVIDERS: Admitting Provider Obstetrics & Gynecology; PCP Family Medicine; Visit Provider Obstetrics & Gynecology
DX: O36.5930 Maternal care for other known or suspected poor fetal growth, third trimester, not applicable or unspecified (principal); Z37.0 Single live birth; Z3A.38 38 weeks gestation of pregnancy; Z98.84 Bariatric surgery status; Z79.899 Other long term (current) drug therapy; Z23 Encounter for immunization
CPT/HCPCS: 36415; 51701; 59025; 59050; 59410; 80307; 81003; 82565; 82570; 84156; 84450; 84460; 84520; 84550; 85025; 85384; 85610; 85730; 86850; 86900; 86901; 90707; J0290; J2300; J2795